=== PATIENT | male | born 1940 | race Caucasian/White ===

== ENCOUNTER 2020-04-04 22:36 | Emergency (ER) | payer OTHER ==
--- OUTSIDE RECORDS SUMMARY | 2020-04-04 22:39 | XMS REPORT ---
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 Problem Obstructive sleep apnea G47.33 Acti ve Problem Hypogonadism male E29.1 Active Problem Anxiety and depression F41.8 Activ e Problem Chronic obstructive pulmonary J44.9 Active disease Problem Benign hypertrophy of prostate N40.0 Active Problem Fibromyalgia M79.7 Active Problem Sciatica of right side M54.31 Activ e Problem Primary osteoarthritis of left knee M17.12 Active Problem Primary osteoarthritis of right M17.11 Active knee Problem Kidney stones N20.0 Active Problem Mixed hyperlipidemia E78.2 Active Problem Atrial fibrillation I48.91 Active Problem Fatigue R53.83 Active Problem Urinary incontinence R32 Active Problem Peripheral vascular disease I73.9 Active Problem Anemia, unspecified type D64.9 Act dana Problem Pain, joint, knee, right M25.561 Act dana Problem Primary osteoarthritis of both M17.0 Active knees Problem Mixed stress and urge urinary N39.46 Active incontinence Problem Benign essential HTN I10 Active Problem 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
--- OUTSIDE RECORDS SUMMARY | 2020-04-04 22:39 | XMS REPORT | Summary of Care ---
:1940 Author Organization [facility] Address [address] [place] [id number] Care Team Providers Name Role Phone Unavailable Primary Care Provider Unavailable Reason for Visit Reason Comments LAB Exposure Encounter Details Date Type Department Care Team Description 03/22/2020 Laboratory Only [facility] Geoff Dean, DANIELLE [address] [place] [id number] Suspected Covid-19 [facility] Fam Pob I Virus Infection [address] [place] [address] (Primary D x) [place] [address] Allergies Not on Filedocumented as of this encounter (statuses as of 03/22/2020) Medications Not on filedocumented as of this encounter (statuses as of 03/22/2020) Active Problems Not on filedocumented as of this encounter (statuses as of 03/22/2020) Social History Tobacco Use Types Packs/Day Years Used Date Never Assessed Sex Assigned at Date Recorded Not on file documented as of this encounter Last Filed Vital Signs Not on filedocumented in this encounter Nursing Notes Jessica Herrera - 03/22/2020 2:00 PM Roselia Mancuso Dino is a 79 year old male here for COVID Screening with a Nasopharyngeal Swab All droplet and contact precautions taken with appropriate PPE worn while interacting with patient. ? Goggles ? N95 Mask ? Gloves ? Gown RR 20 Pulse Ox 97% Patient educated on plan of care for visit, swabbing technique, risks and benefits of test and length of time to receive results. Verbal consent obtained to perform test. CDC Fact Sheet for Patients nCoV Diagnostic Panel dated 11/01/2019 and Factsheet What to Do if Sick with COVID 19 10/12/19 provided. Patient swabbed per appropriate nasopharyngeal technique, and patient tolerated well. Patient was discharged from the testing clinic in stable condition. JESSICA HERRERA 03/22/2020 2:16 PM documented in this encounter Plan of Treatment Name Type Priority Associated Diagnoses Order S chedule COVID-19 (PCR MOLECULAR LAB Routine Suspected Covid-1 9 Virus Expected: 03/22/2020, TESTING) Infection Expires: 2020 documented as of this encounter Results Not on filedocumented in this encounter Visit Diagnoses Diagnosis Suspected Covid-19 Virus Infection - Belle karla documented in this encounter Additional Health Concerns Infection Onset Date Last Indicated Resolved Time COVID-19 Rule Out 03/22/2020 03/22/2020 documented as of this encounter Insurance Payer Benefit Plan / Subscriber ID Effective Dates Phone Addre ss Type Group MEDICARE MEDICARE PART A [id number] 2007-[place] [phone] [facility] Medicare & B t 82 [id number] [place] [id number] [employer] A[employer] INDEMNITY [id number] 2013-[place] Khan t documented as of this encounter
--- OUTSIDE RECORDS SUMMARY | 2020-04-04 22:39 | XMS REPORT | Continuity of Care Document ---
:1940 Author Organization [facility] t Address [address] [place] [address] Care Team Providers Name Role Phone Lab, Fam Pob I Attending Clinician Unavailable Payers Payer Name Policy Type Policy Number Effective Date Expiration Date S ource Problems Condition Condition Condition Status Onset Resolution Last Treating Co mments Source Name Details Category Date Date Treatment Clinician Date Chronic Chronic Problem Active [facility] kidney kidney [facility] - disease, disease, Memori a stage III stage III l (moderate) (moderate) [facility]ics Ischemic Ischemic Problem Active [facility] cardiomyop cardiomyop Tonia kes - athy athy Memoria l [facility] Tinnitus Tinnitus Problem Active [facility] Adult BMI Adult BMI Problem Active [facility] 38.0-38.9 38.0-38.9 Luke s - kg/sq m kg/sq m Memoria l [facility] Low back Low back Problem Active [facility] pain pain [facility] - [facility] Renal Renal Problem Active [facility] disease disease [facility] - [facility] Disorders Disorders Problem Active [facility] of of [facility] - endocrine endocrine Zachary slime glands in glands in l diseases diseases Outpat i classified classified en t elsewhere elsewhere Clin ics Obstructiv Obstructiv Problem Active [facility] e sleep e sleep [facility] - apnea apnea [facility] l [facility] Hypogonadi Hypogonadi Problem Active [facility] sm male sm male [facility] - [facility] l [facility] Anxiety Anxiety Problem Active [facility] and and [facility] - depression depression Me moria l [facility] Chronic Chronic Problem Active [facility] obstructiv obstructiv Tonia kes - e e Memoria pulmonary pulmonary l disease disease [facility] Benign Benign Problem Active [facility] hypertroph hypertroph Tonia kes - y of y of [facility] prostate prostate l [facility] Fibromyalg Fibromyalg Problem Active [facility] ia ia [facility] - [facility] l [facility]ics Sciatica Sciatica Problem Active [facility] of right of right [facility] - side side [facility] l [facility]ics Primary Primary Problem Active [facility] osteoarthr osteoarthr Tonia kes - itis of itis of [facility] left knee left knee l [facility] Primary Primary Problem Active [facility] osteoarthr osteoarthr Tonia kes - itis of itis of [facility] right knee right knee l [facility] Kidney Kidney Diagnosis Active [facility] stones stones [facility] - [facility] l [facility] Mixed Mixed Problem Active [facility] hyperlipid hyperlipid Tonia kes - emia emia [facility] l [facility] Atrial Atrial Problem Active [facility] fibrillati fibrillati Tonia kes - on on [facility] Fatigue [facility] Urinary Urinary Diagnosis Active [facility] incontinen incontinen Tonia kes - ce ce [facility] Peripheral Peripheral Problem Active [facility] vascular vascular [facility] - disease disease [facility] l [facility] Anemia, Anemia, Problem Active [facility] unspecifie unspecifie Tonia kes - d type d type [facility] Pain, Pain, Problem Active [facility] joint, joint, [facility] - knee, knee, Memoria right right l [facility] Primary Primary Problem Active [facility] osteoarthr osteoarthr Tonia kes - itis of itis of [facility] both knees both knees l [facility]ics Mixed Mixed Problem Active [facility] stress and stress and [facility] urinary l incontinen incontinen Ou tpati ce ce ent Clinics Benign Benign Problem Active [facility] essential essential Luke s - HTN HTN [facility] l [facility] Ischemic Ischemic Problem Active [facility] heart heart [facility] - disease disease [facility] l [facility] Dizziness Dizziness Problem Active [facility] GERD GERD Problem Active [facility] (gastroeso (gastroeso Tonia kes - phageal phageal Memoria reflux reflux l disease) disease) Outpat i ent Clinics Vitamin D Vitamin D Problem Active [facility] deficiency deficiency Tonia kes - Memoria l [facility] Clinics Arterioscl Arterioscl Problem Active [facility] erosis of erosis of Luke s - coronary coronary Memori a artery artery l [facility]ics Neuropathy Neuropathy Problem Active [facility] , , [facility] - peripheral peripheral Me moria l [facility] Nocturia Nocturia Problem Active [facility] - [facility] Chronic Chronic Problem Active [facility] hepatitis hepatitis Luke s - C C Memoria l [facility] Allergies, Adverse Reactions, Alerts Allergy Allergy Status Severity Reaction(s) Onset Inactive Treating Comm ents Source Name Type Date Date Clinician No Known DA Active [facility] All[facility]ie 01-21 s 00:00: [address] Medications Ordered Filled Start Stop Current Ordering Indication Dosage Frequency Signature Comments Components Source Medication Medication Date Date Medication? Clinician (SIG) Name Name Alexandrapatriciadeidre Hodgeopan Yes Elaina 1/[address] 9-05 [place] [facility] - 00:00: Memoria 00 l [facility] Testosteron Testosteron Yes Elaina [address] [facility] e Cypionate e Cypionate 1-03 [place] [facility] - 00:00: Memoria 00 l [facility] Clinics Coreg Coreg Yes Elaina not [facility] [place] defined [facility] - Memoria l [facility]ics Isosorbide Isosorbide Yes Elaina [address] [facility] Mononitrate Mononitrate [place] in the [facility] - ER ER morning Memoria l [facility] Vitamin D3 Vitamin D3 Yes Elaina [address] [facility] [facility] [place] [facility] - Memoria l [facility] Potassium Potassium Yes Elaina [address] [facility] Chloride Chloride Skylar with food [facility]ukes - [place] ER [facility] ER Memoria l [facility] Gabapentin Gabapentin Yes Elaina [address] [facility] [place] [facility] - Memoria l [facility]ics Zocor Zocor Yes Elaina [address] [place] in the Lukes - evening Memoria l [facility] Lotrisone Lotrisone Yes Eliana APPLY [facility] Skylar TOPICALLY [facility] - TO AREA Memoria ONCE A DAY l AT BED [facility] TIME ent Clinics Amlodipine Amlodipine Yes Elaina [address] [address] Besylate Besylate [place] - [facility] l [facility] Wellbutrin Wellbutrin Yes Elaina [address] XL XL [place] in the [facility] - morning [facility] l [facility] Hydrochloro Hydrochloro Yes Elaina [address] thiazide thiazide [place] in the L ukes - morning [facility] l [facility] Vitamin Vitamin Yes Elaina not [facility] G27-[id number] Skylar defined [facility]ukes - Acid Acid [facility] l [facility] Zoloft Zoloft Yes Elaina [address] [facility] [facility] Skyl[facility] - [facility] l [facility] Clinics Pantoprazol Pantoprazol Yes Elaina [address] [facility] e Sodium e Sodium [place] [facility] l [facility] Clinics Nuvigil Nuvigil Yes Elaina [address] [facility] [facility] [place] in the [facility] - morning [facility] l [facility] Omeprazole Omeprazole Yes Elaina [address] [place] [facility] ent Clinics Procedures This patient has no known procedures. Encounters Start End Encounter Admission Attending Care Care Encounter Source Date/Time Date/Time Type Type Clinicians Facility Department ID 2020-03-22 2020-03-22 Laboratory Lab, [facility] [id number] 14:05:14 14:25:14 Only Fam Pob I [facility] [id number] [place] [id number] Professio [id number] nal [address] 2020-01-28 2020-01-28 Outpatient Celestine Chew [id number] 13:15:00 13:15:00 t Specialty/U Tonia kes - Specialty rology Memori a /Urology Clinic l Clinic [facility] 2020-01-25 2020-01-25 Outpatient Celestine Chew [id number] 13:46:00 13:46:00 t Specialty/U Tonia kes - Specialty rology Memori a /Urology Clinic l Clinic [facility] 2019-12-28 2019-12-28 Outpatient Celestine Chew [id number] 13:30:00 13:30:00 t Specialty/U Tonia kes - Specialty rology Memori a /Urology Clinic l Clinic [facility]ics Results Test Description Test Time Test Comments Results Result Comments Source ROMIE-AREN 2020-01-25 07:24:00 Test Item Value Reference Range Interpretation Comme nts CURTIS (test code = ACTI) 208 SEC 74-137 H BASIC METABOLIC [id number] 08:47:00 Test Item Value Reference Range Interpretation Comments SODIUM (test code = 137 MMOL/L 137-145 N NA) POTASSIUM (test code = 4.1 MMOL/L 3.5-5.1 N K) CHLORIDE (test code = 106 MMOL/L 98-107 N CL) CARBON DIOXIDE (test 28 MMOL/L 22-30 N code = CO2) ANION GAP (test code = 7 MMOL/L 14-24 L GAP) GLUCOSE (test code = 91 MG/DL 74-106 N GLU) BLOOD UREA NITROGEN 14 MG/DL 9-20 N (test code = BUN) GLOMERULAR FILTRATION > 60 Report ing units: RATE (test code = GFR) ml/mi n/1.73 m2 (Modified MDRD Formula)Referen ce Range: > or = 6 0 ml/min/1.73 m2 CREATININE (test code 1.00 MG/DL 0.66-1.25 N = CREAT) CALCIUM (test code = 8.7 MG/DL 8.4-10.2 N CA) CBC W/AUTO [id number] 08:17:00 Test Item Value Reference Range Interpretation Comments WHITE BLOOD CELL (test code = 9.5 K/MM3 3.8-9.8 N WBC) RED BLOOD CELL (test code = 3.73 M/MM3 3.95-5.67 L RBC) HEMOGLOBIN (test code = HGB) 10.7 G/DL 12.4-16.7 L HEMATOCRIT (test code = HCT) 33.9 % 35.9-49.5 L MEAN CELL VOLUME (test code = 91 fL 81.7-96.1 N MCV) MEAN CELL HGB (test code = MCH) 28.7 pg 27.6-33.2 N MEAN CELL HGB CONCETRATION 31.6 % 32.9-35.5 L (test code = MCHC) RED CELL DISTRIBUTION WIDTH 12.9 % 12.1-15.2 N (test code = RDW) PLATELET COUNT (test code = 205 K/MM3 129-368 N PLT) MEAN PLATELET VOLUME (test code 10.1 fl 7.4-10.4 N = MPV) NEUTROPHIL % (test code = NT%) 74.3 % 43-75 N IMMATURE GRANULOCYTE % (test 0.7 % 0.0-2.0 N code = IG%) LYMPHOCYTE % (test code = LY%) 11.7 % 14-44 L MONOCYTE % (test code = MO%) 8.9 % 4-13 N EOSINOPHIL % (test code = EO%) 4.1 % 0-6 N BASOPHIL % (test code = BA%) 0.3 % 0-2 N NUCLEATED RBC % (test code = 0.0 % 0-1.0 N NRBC%) NEUTROPHIL # (test code = NT#) 7.04 K/mm3 2.0-7.6 N IMMATURE GRANULOCYTE # (test 0.07 x10 3/uL 0-0.03 H code = IG#) LYMPHOCYTE # (test code = LY#) 1.11 K/mm3 1.0-3.8 N MONOCYTE # (test code = MO#) 0.84 K/mm3 0.1-0.8 H EOSINOPHIL # (test code = EO#) 0.39 K/mm3 0.0-0.2 H BASOPHIL # (test code = BA#) 0.03 K/mm3 0.0-0.2 N NUCLEATED RBC # (test code = 0.00 K/mm3 0.0-0.1 N NRBC#) BASIC METABOLIC [id number] 06:47:00 Test Item Value Reference Range Interpretation Comments SODIUM (test code = 140 MMOL/L 137-145 N NA) POTASSIUM (test code = 3.7 MMOL/L 3.5-5.1 N K) CHLORIDE (test code = 108 MMOL/L 98-107 H CL) CARBON DIOXIDE (test 27 MMOL/L 22-30 N code = CO2) GLUCOSE (test code = 102 MG/DL 74-106 N GLU) BLOOD UREA NITROGEN 22 MG/DL 9-20 H (test code = BUN) GLOMERULAR FILTRATION > 60 Report ing units: RATE (test code = GFR) ml/mi n/1.73 m2 (Modified MDRD Formula)Referen ce Range: > or = 6 0 ml/min/1.73 m2 CREATININE (test code 1.10 MG/DL 0.66-1.25 N = CREAT) CALCIUM (test code = 9.1 MG/DL 8.4-10.2 N CA) LIPID PROFILE (CORONARY RISK)2020-01-23 06:47:00 Test Item Value Reference Range Interpretation Comments TRIGLYCERIDES (test 104 MG/DL TRIGLYCE RIDES code = TRIG) REFERENCE RANGE:Normal: < 150 mg/dLBorderline High: 150-199 mg/dLHi gh: 200-499 mg/dLVe ry High: >=500 mg/ dL CHOLESTEROL (test code 129 MG/DL <200 = CHOL) HDL CHOLESTEROL (test 33 MG/DL 40-59 L code = HDL) LIPOPROTEIN LDL (test 75 MG/DL 0-99 N code = LDL) OPTIMAL........ .<100 mg/dLNEAR OPTIMAL/ABOVE OPTIMAL........ .100-12 9 mg/dL BORDERLINE HIGH.........13 0-159 mg/dL HIGH.........16 0-189 mg/dL VERY HIGH...... ...>/= 190 mg/dL [id number] 06:47:00 Test Item Value Reference Range Interpretation Comments MAGNESIUM (test code = MAG) 1.9 MG/DL 1.6-2.3 N PROTHROMBIN [id number] 06:44:00 Test Item Value Reference Range Interpretation Comments PROTHROMBIN TIME 14.9 SECONDS 9.4-12.5 H PATIENT (test code = PTP) INTERNATIONAL NORMAL 1.4 The INR is to be RATIO (test code = used only for INR) monitoring oral anticoagulantth erap y. INDICATION I NR VALUE ---- ---- ---- -------1. Prophylaxis, de ep venous thrombos is, including hig h risk surgery. 2.0 - 3.0 2. Prophylaxis, de ep venous thrombos is, hip surgery, treatment for d eep venous thrombosis or pulmonary prevention of systemic emboli sm in patients wit h valvular heart disease, atrial fibrillation, tissue heart va lve, or acute myocar dial infarction. 2.0 - 3 .0 3. Mechanical prosthesis hear t valves, recurrent syste payal embolism. 3.0 - 4.5 PTT [id number] 06:44:00 Test Item Value Reference Range Interpretation Comments PTT ACTIVATED (test code = APTT) 33.7 SECONDS 25.1-36.5 N BASIC METABOLIC [id number] 06:36:00 Test Item Value Reference Range Interpretation Comments SODIUM (test code = 140 MMOL/L 137-145 N NA) POTASSIUM (test code = 3.7 MMOL/L 3.5-5.1 N K) CHLORIDE (test code = 108 MMOL/L 98-107 H CL) CARBON DIOXIDE (test 27 MMOL/L 22-30 N code = CO2) GLUCOSE (test code = 102 MG/DL 74-106 N GLU) BLOOD UREA NITROGEN 22 MG/DL 9-20 H (test code = BUN) GLOMERULAR FILTRATION > 60 Report ing units: RATE (test code = GFR) ml/mi n/1.73 m2 (Modified MDRD Formula)Referen ce Range: > or = 6 0 ml/min/1.73 m2 CREATININE (test code 1.10 MG/DL 0.66-1.25 N = CREAT) CALCIUM (test code = 9.1 MG/DL 8.4-10.2 N CA) LIPID PROFILE (CORONARY RISK)2020-01-23 06:36:00 Test Item Value Reference Range Interpretation Comments TRIGLYCERIDES (test 104 MG/DL TRIGLYCE RIDES code = TRIG) REFERENCE RANGE:Normal: < 150 mg/dLBorderline High: 150-199 mg/dLHi gh: 200-499 mg/dLVe ry High: >=500 mg/ dL CHOLESTEROL (test code 129 MG/DL <200 = CHOL) HDL CHOLESTEROL (test 33 MG/DL 40-59 L code = HDL) LIPOPROTEIN LDL (test MG/DL 0-99 code = LDL) [id number] 06:36:00 Test Item Value Reference Range Interpretation Comments MAGNESIUM (test code = MAG) 1.9 MG/DL 1.6-2.3 N BASIC METABOLIC [id number] 06:35:00 Test Item Value Reference Range Interpretation Comments SODIUM (test code = 140 MMOL/L 137-145 N NA) POTASSIUM (test code = 3.7 MMOL/L 3.5-5.1 N K) CHLORIDE (test code = 108 MMOL/L 98-107 H CL) CARBON DIOXIDE (test 27 MMOL/L 22-30 N code = CO2) GLUCOSE (test code = 102 MG/DL 74-106 N GLU) BLOOD UREA NITROGEN 22 MG/DL 9-20 H (test code = BUN) GLOMERULAR FILTRATION > 60 Report ing units: RATE (test code = GFR) ml/mi n/1.73 m2 (Modified MDRD Formula)Referen ce Range: > or = 6 0 ml/min/1.73 m2 CREATININE (test code 1.10 MG/DL 0.66-1.25 N = CREAT) CALCIUM (test code = 9.1 MG/DL 8.4-10.2 N CA) LIPID PROFILE (CORONARY RISK)2020-01-23 06:35:00 Test Item Value Reference Range Interpretation Comments TRIGLYCERIDES (test 104 MG/DL TRIGLYCE RIDES code = TRIG) REFERENCE RANGE:Normal: < 150 mg/dLBorderline High: 150-199 mg/dLHi gh: 200-499 mg/dLVe ry High: >=500 mg/ dL CHOLESTEROL (test code 129 MG/DL <200 = CHOL) HDL CHOLESTEROL (test MG/DL 40-59 code = HDL) LIPOPROTEIN LDL (test MG/DL 0-99 code = LDL) [id number] 06:35:00 Test Item Value Reference Range Interpretation Comments MAGNESIUM (test code = MAG) 1.9 MG/DL 1.6-2.3 N BASIC METABOLIC [id number] 06:34:00 Test Item Value Reference Range Interpretation Comments SODIUM (test code = 140 MMOL/L 137-145 N NA) POTASSIUM (test code = 3.7 MMOL/L 3.5-5.1 N K) CHLORIDE (test code = 108 MMOL/L 98-107 H CL) CARBON DIOXIDE (test MMOL/L 22-30 code = CO2) GLUCOSE (test code = MG/DL 74-106 GLU) BLOOD UREA NITROGEN MG/DL 9-20 (test code = BUN) GLOMERULAR FILTRATION > 60 Report ing units: RATE (test code = GFR) ml/mi n/1.73 m2 (Modified MDRD Formula)Referen ce Range: > or = 6 0 ml/min/1.73 m2 CREATININE (test code 1.10 MG/DL 0.66-1.25 N = CREAT) CALCIUM (test code = MG/DL 8.7-9.7 CA) LIPID PROFILE (CORONARY RISK)2020-01-23 06:34:00 Test Item Value Reference Range Interpretation Comments TRIGLYCERIDES (test code = TRIG) MG/DL CHOLESTEROL (test code = CHOL) 129 MG/DL <200 HDL CHOLESTEROL (test code = HDL) MG/DL 40-59 LIPOPROTEIN LDL (test code = LDL) MG/DL 0-99 [id number] 06:34:00 Test Item Value Reference Range Interpretation Comments MAGNESIUM (test code = MAG) MG/DL 1.6-2.3 BASIC METABOLIC [id number] 06:32:00 Test Item Value Reference Range Interpretation Comments SODIUM (test code = NA) 140 MMOL/L 137-145 N POTASSIUM (test code = K) 3.7 MMOL/L 3.5-5.1 N CHLORIDE (test code = CL) 108 MMOL/L 98-107 H CARBON DIOXIDE (test code = CO2) MMOL/L 22-30 GLUCOSE (test code = GLU) MG/DL 74-106 BLOOD UREA NITROGEN (test code = MG/DL 9-20 BUN) GLOMERULAR FILTRATION RATE (test code = GFR) CREATININE (test code = CREAT) MG/DL 0.66-1.25 CALCIUM (test code = CA) MG/DL 8.7-9.7 LIPID PROFILE (CORONARY RISK)2020-01-23 06:32:00 Test Item Value Reference Range Interpretation Comments TRIGLYCERIDES (test code = TRIG) MG/DL CHOLESTEROL (test code = CHOL) MG/DL <200 HDL CHOLESTEROL (test code = HDL) MG/DL 40-59 LIPOPROTEIN LDL (test code = LDL) MG/DL 0-99 [id number] 06:32:00 Test Item Value Reference Range Interpretation Comments MAGNESIUM (test code = MAG) MG/DL 1.6-2.3 CBC W/AUTO [id number] 06:20:00 Test Item Value Reference Range Interpretation Comments WHITE BLOOD CELL (test code = 8.1 K/MM3 3.8-9.8 N WBC) RED BLOOD CELL (test code = 3.84 M/MM3 3.95-5.67 L RBC) HEMOGLOBIN (test code = HGB) 11.2 G/DL 12.4-16.7 L HEMATOCRIT (test code = HCT) 34.7 % 35.9-49.5 L MEAN CELL VOLUME (test code = 90 fL 81.7-96.1 N MCV) MEAN CELL HGB (test code = MCH) 29.2 pg 27.6-33.2 N MEAN CELL HGB CONCETRATION 32.3 % 32.9-35.5 L (test code = MCHC) RED CELL DISTRIBUTION WIDTH 12.9 % 12.1-15.2 N (test code = RDW) PLATELET COUNT (test code = 217 K/MM3 129-368 N PLT) MEAN PLATELET VOLUME (test code 10.0 fl 7.4-10.4 N = MPV) NEUTROPHIL % (test code = NT%) 66.4 % 43-75 N IMMATURE GRANULOCYTE % (test 0.5 % 0.0-2.0 N code = IG%) LYMPHOCYTE % (test code = LY%) 17.2 % 14-44 N MONOCYTE % (test code = MO%) 10.1 % 4-13 N EOSINOPHIL % (test code = EO%) 5.3 % 0-6 N BASOPHIL % (test code = BA%) 0.5 % 0-2 N NUCLEATED RBC % (test code = 0.0 % 0-1.0 N NRBC%) NEUTROPHIL # (test code = NT#) 5.41 K/mm3 2.0-7.6 N IMMATURE GRANULOCYTE # (test 0.04 x10 3/uL 0-0.03 H code = IG#) LYMPHOCYTE # (test code = LY#) 1.40 K/mm3 1.0-3.8 N MONOCYTE # (test code = MO#) 0.82 K/mm3 0.1-0.8 H EOSINOPHIL # (test code = EO#) 0.43 K/mm3 0.0-0.2 H BASOPHIL # (test code = BA#) 0.04 K/mm3 0.0-0.2 N NUCLEATED RBC # (test code = 0.00 K/mm3 0.0-0.1 N NRBC#) Coronavirus 2018 nCoV [id number] 18:32:00 Test Item Value Reference Range Interpretation Comments Coronavirus 2018 nCoV Negative NEGATIVE Per hi nufacturer, Bedside (test code = negativ e results should COVNONPUIBED) be treated aspresumptive a nd, if inconsistent wi th clinical signs andsymptoms or necessary for p atient management, libra uld betested with a n alternative mol ecular assay. Negative resultsdo not p reclude SARS-CoV-2 infe ction and should not be usedas the sole basis for patient man agement decisions. Neg ative results should be considered in t he context of apat ient's recent exposure s, history, prese nce of clinicalsigns a nd symptoms consis tent with COVID-19.
--- OUTSIDE RECORDS SUMMARY | 2020-04-04 22:39 | XMS REPORT ---
:1940 Author Organization [employer] Care Team Providers Name Role Phone Skylar Elaina Provider Role Unavailable Allergies, Adverse Reactions, Alerts Substance Reaction Event Type N.K.D.A. Info Not Available Non Drug Allergy Problems Problem Type Condition Code Onset Dates [...] I25.9 Activ e Problem Dizziness R42 Active Assessment Kidney stones N20.0 Active Problem GERD (gastroesophageal reflux K21.9 Active disease) Assessment Urinary incontinence R32 Active Problem Vitamin D deficiency E55.9 Active Problem Arteriosclerosis of coronary artery I25.10 Active Problem Neuropathy, peripheral G62.9 Activ e Problem Nocturia R35.1 Active Problem Chronic hepatitis C B18.2 Active Medications Medication Code Code Instructions Start End Status Dosage System Date Date Zoloft [facility] 96360871336 50 MG Orally Active 1 table t Once a day Isosorbide [facility] 94289679991 30 MG Orally Active 1 ta blet Mononitrate ER Once a day in the morning Vitamin D3 [facility] 77997764464 1000 UNIT Active 1 capsu le Orally Once a day Vitamin F86-Crvtb [facility] 10172531003 500-400 MCG Active not Acid Orally defined Ditropan [facility] 24267526187 5mg orally Sept Active 1/2 tabl et twice a day 2018 Nuvigil [facility] 63971189638 150 MG Orally Active 1 tabl et Once a day in the morning Testosterone [facility] 22382494394 100 MG/ML Aba Active 1 ml Cypionate Intramuscular 2018 Zocor [facility] 66434141525 20 MG Orally Active 1 table t Once a day in the evening Amlodipine Besylate [facility] 76184620652 10 MG Orally Act dana 1 tablet Once a day Wellbutrin XL [facility] 07329596300 150 MG Orally Active 1 tablet Once a day in the morning Hydrochlorothiazide [facility] 11764932319 12.5 MG Orally A ctive 1 tablet Once a day in the morning Gabapentin [facility] 21545597776 400 MG Orally Active 1 c apsule Twice a day Potassium Chloride [facility] [address]-33 15 MEQ Orally A ctive 1 tablet [place] Twice a day with food Coreg [facility] 54408282710 25 MG Orally Active not defined Pantoprazole Sodium [facility] 56454692942 40 MG Orally Act dana 1 tablet Once a day Lotrisone [facility] 29529236275 1-0.05 % Active APPLY TOPICALLY TO AREA ONCE A DAY AT BED TIME Omeprazole [facility] 15986036094 40 MG Orally Active 1 ca psule Once a day Results No Known Results Summary Purpose [employer] Submission
[2020-04-04] MEDS ORDERED: NA CHLORIDE 0.9% 1,000 ML ONE ×2 (23:06→23:09)
[2020-04-04] MEDS ORDERED: FOLIC ACID 5 MG/ML VIAL ONE ×2 (23:06→23:09)
[2020-04-04] MEDS ORDERED: ALTEPLASE 100 ML IV ONE (23:14)
[2020-04-04 23:18] LABS: Absolute Lymphocytes (CBC) 1.4 K/uL (0.7-4.9); Basophils % 0.7 % (0-1.3); Hematocrit 34.3 % (39.6-49.0); Lymphocytes % 16.9 % (15.3-44.8); MPV 8.2 fL (7.6-11.3); RBC Red Blood Cell Count 3.96 M/uL (4.33-5.43)
[2020-04-04 23:21] LABS: Protime INR 1.32
[2020-04-04] MEDS ORDERED: FAMOTIDINE 20 MG/2 ML VIAL IV ONE (23:22)
[2020-04-04 23:30] LABS: BUN Blood Urea Nitrogen 28 mg/dL (7-18); Bicarbonate 28 mmol/L (21-32); Glucose Level 101 mg/dL (74-106); Magnesium 2.3 mg/dL (1.8-2.4); Potassium 3.6 mmol/L (3.5-5.1); Sodium Level 145 mmol/L (136-145); Troponin (Emerg Dept Use Only) < 0.02 ng/mL (0.0-0.045)
[2020-04-04 23:38] LABS: C-Reactive Protein < 2.90 mg/L (<3.00)
--- NOTE | 2020-04-04 23:44 | RAD REPORT ---
EXAM DESCRIPTION: RAD - Chest Single View - 04/04/2020 11:28 pm CLINICAL HISTORY: COUGH Chest pain. COMPARISON: Abdomen 1 View (KUB) dated 02/03/2020; Abdomen 1 View (KUB) dated 06/20/2018; Abdomen 1 Vi ew (KUB) dated 06/13/2017; Chest Pa And Lat (2 Views) dated 03/06/2017 FINDINGS: Portable technique limits examination quality. The lungs are grossly clear. The heart is normal in size. Thoracic aorta is tortuous. IMPRESSION: No acute intrathoracic process suspected.
--- NOTE | 2020-04-05 00:11 | EDPHYS ---
Physician Documentation [facility] Name: Jp Sun Age: 79 yrs Sex: Male : 1940 Arrival Date: 04/04/2020 Time: 22:38 Bed 5 Private MD: ED Physician Israel Frias HPI: 04/04 23:54 This 79 yrs old Male presents to ER via EMS with complaints of S/S of shannon Possible Stroke. 23:54 The patient's problem is reported as a facial droop, dysphasia, slurred speech, shannon expressive aphasia, difficulty swallowing. Onset: The symptoms/episode began/occurred 830 yessy per the family, dw and daughter, 830pm yessy . Duration: The episode is continuous. Context: the episode(s) was witnessed, by family, daughter, , symptoms became apparent at 20:30. occurred at home. The symptoms are alleviated by nothing. The symptoms are aggravated by nothing. Associated signs and symptoms: The patient has no apparent associated signs or symptoms. Severity of symptoms: At their worst the symptoms were mild in the emergency department the symptoms are unchanged. Patient's baseline: Neuro: alert and fully oriented, Motor: no deficits, Ambulation: walks without assistance, Speech: normal, normal for age, The patient has a previous history of CVA. yes but no work up 2 months ago, slurred speech and difficulty swallowing. Historical: - Allergies: 22:45 No Known Allergies; rv - Home Meds: 22:45 amlodipine 10 mg tab 1 tab once daily [Active]; pravastatin 40 mg oral tab 1 tab once rv daily [Active]; gabapentin 400 mg oral cap 1 cap daily [Active]; carvedilol 25 mg oral tab 1 tab daily [Active]; 23:15 losartan 50 mg oral tab 1 tab once daily [Active]; bupropion HCl 300 mg Oral Tb24 1 tab rv once daily [Active]; sertraline 100 mg oral tab 1 tab once daily [Active]; sertraline 25 mg oral tab 1 tab once daily [Active]; sulfamethoxazole-trimethoprim Oral 2 times per day [Active]; pantoprazole 40 mg oral TbEC 1 tab once daily [Active]; Myrbetriq 50 mg oral Tb24 1 tab once daily [Active]; aspirin 325 mg Oral TbEC 1 tab once daily [Active]; - PMHx: 22:45 Hypertension; TIA; rv - PSHx: 22:45 None; rv - Immunization history:: Adult Immunizations up to date. - Social history:: Smoking status: Patient denies any tobacco usage or history of. - Family history:: not pertinent. ROS: 23:54 Constitutional: Negative for fever, chills, and weight loss, Eyes: Negative for injury, shannon pain, redness, and discharge, ENT: Negative for injury, pain, and discharge, Neck: Negative for injury, pain, and swelling, Cardiovascular: Negative for chest pain, palpitations, and edema, Respiratory: Negative for shortness of breath, cough, wheezing, and pleuritic chest pain, Abdomen/GI: Negative for abdominal pain, nausea, vomiting, diarrhea, and constipation, Back: Negative for injury and pain, : Negative for injury, bleeding, discharge, and swelling, MS/Extremity: Negative for injury and deformity, Skin: Negative for injury, rash, and discoloration, Psych: Negative for depression, anxiety, suicide ideation, homicidal ideation, and hallucinations, Allergy/Immunology: Negative for hives, rash, and allergies, Endocrine: Negative for neck swelling, polydipsia, polyuria, polyphagia, and marked weight changes, Hematologic/Lymphatic: Negative for swollen nodes, abnormal bleeding, and unusual bruising. 23:54 Neuro: Positive for dizziness, speech changes, difficulty swallowing. Exam: 23:54 Radiologist reports: neg for acute, no blood shannon 23:54 Constitutional: This is a well developed, well nourished patient who is awake, alert, and in no acute distress. Head/Face: Normocephalic, atraumatic. Eyes: Pupils equal round and reactive to light, extra-ocular motions intact. Lids and lashes normal. Conjunctiva and sclera are non-icteric and not injected. Cornea within normal limits. Periorbital areas with no swelling, redness, or edema. ENT: Nares patent. No nasal discharge, no septal abnormalities noted. Tympanic membranes are normal and external auditory canals are clear. Oropharynx with no redness, swelling, or masses, exudates, or evidence of obstruction, uvula midline. Mucous membranes moist. Neck: Trachea midline, no thyromegaly or masses palpated, and no cervical lymphadenopathy. Supple, full range of motion without nuchal rigidity, or vertebral point tenderness. No Meningismus. Chest/axilla: Normal chest wall appearance and motion. Nontender with no deformity. No lesions are appreciated. Cardiovascular: Regular rate and rhythm with a normal S1 and S2. No gallops, murmurs, or rubs. Normal PMI, no JVD. No pulse deficits. Respiratory: Lungs have equal breath sounds bilaterally, clear to auscultation and percussion. No rales, rhonchi or wheezes noted. No increased work of breathing, no retractions or nasal flaring. Abdomen/GI: Soft, non-tender, with normal bowel sounds. No distension or tympany. No guarding or rebound. No evidence of tenderness throughout. Back: No spinal tenderness. No costovertebral tenderness. Full range of motion. Male : Normal genitalia with no discharge or lesions. Skin: Warm, dry with normal turgor. Normal color with no rashes, no lesions, and no evidence of cellulitis. MS/ Extremity: Pulses equal, no cyanosis. Neurovascular intact. Full, normal range of motion. Psych: Awake, alert, with orientation to person, place and time. Behavior, mood, and affect are within normal limits. 23:54 Neuro: Orientation: is normal, appropriate for stated age, no acute changes, Mentation: is normal, appropriate for stated age, no acute changes, Memory: is normal, immediate memory is intact, recent memory is intact, remote memory is intact, appropriate for stated age, no acute changes, Cranial nerves: extraocular movements are intact, facial droop noted on left, with forehead involved. Cerebellar function: is grossly normal based on the patient's age, no acute changes, Motor: is normal, is grossly normal based on the patient's age, no acute changes, moves all fours, strength is 5/5 in all extremities, Sensation: is normal, no obvious gross deficits, appropriate no acute changes, Gait: not tested. Deep tendon reflexes are 2+ (normal) in the bilateral brachioradialis, bicep, tricep and patellar and Achilles tendons, Babinski testing is normal, seizure activity, is not displayed by the patient. Vital Signs: 22:41 BP 126 / 76; Pulse 66; Resp 16; Temp 98; Pulse Ox 98% ; Weight 108.86 kg; Height 6 ft. rv 0 in. (182.88 cm); Pain 0/10; 23:22 Weight 103.96 kg (M); rv 04/05 00:00 BP 136 / 108; Pulse 66; Resp 16; Pulse Ox 100% on R/A; rv 00:30 BP 146 / 86; Pulse 64; Resp 17; Pulse Ox 99% on R/A; rv 01:00 BP 138 / 90; Pulse 64; Resp 15; Temp 98; Pulse Ox 99% on R/A; rv 01:14 Pain 5/10; rv 04/04 23:22 Body Mass Index 31.08 (103.96 kg, 182.88 cm) rv NIH Stroke Scale Scores: 04/04 23:25 NIHSS Score: 2 rv 23:54 NIHSS Score: 3 shannon 04/05 00:41 NIHSS Score: 2 rv :22 NIHSS Score: 2 rv MDM: 04/04 22:49 Patient medically screened. [facility] 04/05 00:02 Differential diagnosis: CVA, TIA, Dementia, metabolic disorder. Data reviewed: vital shannon signs, nurses notes, lab test result(s), EKG, radiologic studies, CT scan, plain films. Data interpreted: desk monitor: rate is 66 beats/min, rhythm is regular, Pulse oximetry: on room air is 98 %. Test interpretation: by ED physician or midlevel provider: ECG, plain radiologic studies. Counseling: I had a detailed discussion with the patient and/or guardian regarding: the historical points, exam findings, and any diagnostic results supporting the discharge/admit diagnosis, lab results, radiology results, the need for outpatient follow up, the need to transfer to another facility, for higher level of care, [facility] does not immediately have the required specialist. Special discussion: dw , patient and daughter about tpa possibility, all agreed to give if no contraindications, dr Pan also said ok and do give. ED course: pt arrived within 3 hr window, confirmed with daughter and , 830pm yessy, no earlier, told tp go immediately to ct and bring back to the room, when labs completed then will send for ct head angio, instead they(radiology) did both at the same time delaying ct head without report and giving contrast to cret 1.89. mucomyst given. 04/04 22:52 Order name: Troponin (emerg Dept Use Only); Complete Time: 23:42 [facility] 04/04 22:52 Order name: Magnesium; Complete Time: 23:42 [facility] 04/04 22:52 Order name: Basic Metabolic Panel; Complete Time: 23:42 [facility] 04/04 22:52 Order name: CBC with Diff; Complete Time: 23:42 [facility] 04/04 22:52 Order name: Protime (+inr); Complete Time: 23:42 [facility] 04/04 22:52 Order name: Ptt, Activated; Complete Time: 23:42 [facility] 04/04 22:52 Order name: CT Stroke Brain w/o Contrast [facility] 04/04 22:52 Order name: Stroke CXR 1 View [facility] 04/04 22:52 Order name: CT Head Angio [facility] 04/04 22:52 Order name: CRP; Complete Time: 23:42 [facility] 04/04 22:52 Order name: Sed Rate; Complete Time: 23:42 [facility] 04/04 23:12 Order name: Glucose, Ancillary Testing; Complete Time: 23:29 EDMS 04/05 00:14 Order name: CT Abd/Pelvis - Without Contrast ar5 04/04 22:52 Order name: EKG; Complete Time: 22:52 [facility] 04/04 22:52 Order name: Accucheck; Complete Time: 23:01 [facility] 04/04 22:52 Order name: Cardiac monitoring; Complete Time: 23:01 [facility] 04/04 22:52 Order name: EKG - Nurse/Tech; Complete Time: 23:04 [facility] 04/04 22:52 Order name: IV Saline Lock; Complete Time: 23:04 [facility] 04/04 22:52 Order name: Labs collected and sent; Complete Time: 23:04 [facility] 04/04 22:52 Order name: NPO; Complete Time: 23:01 [facility] 04/04 22:52 Order name: O2 Per Protocol; Complete Time: 23:01 [facility] 04/04 22:52 Order name: O2 Sat Monitoring; Complete Time: 23:01 [facility] 04/04 22:52 Order name: Stroke Swallow Screen; Complete Time: 00:37 [facility] Administered Medications: 04/04 00:30 Drug: morphine 2 mg Route: IVP; Site: right antecubital; rv 04/05 01:14 Follow up: Pain 5/10 Adult; Response: No adverse reaction; Marked relief of symptoms; rv Pain is decreased; RASS: Alert and Calm (0) 04/04 23:30 Drug: NS 0.9% 1000 ml Route: IV; Rate: 1 bolus; Site: right antecubital; rv 04/05 01:16 Follow up: IV Status: Completed infusion; IV Intake: 1000ml rv 04/04 23:30 Drug: foLIC Acid 1 mg Route: IVPB; Site: right antecubital; rv 04/05 01:16 Follow up: IV Status: Completed infusion rv 04/04 23:30 Drug: Pepcid 20 mg Route: IVP; Site: right antecubital; rv 04/05 01:15 Follow up: Response: No adverse reaction rv 04/04 23:33 Drug: ACTIvase {Co-Signature: claudio (Cindy Fraire RN).} Route: IV Thrombolytics; Rate: rv calculated rate; Infused Over: 60 mins; 04/05 01:15 Follow up: Response: No adverse reaction rv 01:15 Follow up: Response: Other; completed infusion rv 01:15 Drug: morphine 2 mg Route: IVP; Site: right antecubital; rv 01:15 Follow up: Response: Medication administered at discharge. rv Disposition: 04/05/20 00:11 Transfer ordered to [facility]. Diagnosis are Cerebral infarction, Aphasia following cerebral infarction, Dysphagia, Acute kidney failure - on chronic. - Reason for transfer: Higher level of care. - Accepting physician is dr molina, [facility], [facility], [facility]. - Condition is Serious. - Problem is new. - Symptoms have improved. Critical care time excluding procedures: 00:35 Critical care time: Bedside Care: 25 minutes, Consultation: 10 minutes, Family shannon Intervention: 15 minutes. Total time: 50 minutes NIH Stroke Scale - NIH Stroke Score Date: 04/04/2020 Time: 23:25 Total Score = 2 1a. Level of Consciousness (LOC) - 0(Alert) 1b. Level of Consciousness (LOC) (Year \T\ Age) - 0(Both) 1c. LOC Commands (Open \T\ Closes Eyes/Alteration Hand) - 0(Both) 2. Best Gaze (Lateral Gaze Paresis) - 0(Normal) 3. Visual Field Loss - 0(No visual loss) 4. Facial Palsy - 1(Minor Paralysis) 5a. Left Arm: Motor (10-second hold) - 0(No drift) 5b. Right Arm: Motor (10-second hold) - 0(No drift) 6a. Left Leg: Motor (5-second hold - always test supine) - 0(No drift) 6b. Right Leg: Motor (5-second hold - always test supine) - 0(No drift) 7. Limb Ataxia (finger/nose \T\ heel/barragan - test with eyes open) - 0(Absent) 8. Sensory Loss (pinprick arms/legs/face) - 0(Normal) 9. Best Language: Aphasia (description/naming/reading) - 0(No aphasia) 10. Dysarthria (speech clarity - read or repeat words) - 1(Mild to Moderate) 11. Extinction and Inattention (visual/tactile/auditory/spatial/personal) - 0(No abnormality) Initials: NIH Stroke Scale - NIH Stroke Score Date: 04/04/2020 Time: 23:54 Total Score = 3 1a. Level of Consciousness (LOC) - 0(Alert) 1b. Level of Consciousness (LOC) (Year \T\ Age) - 0(Both) 1c. LOC Commands (Open \T\ Closes Eyes/Alteration Hand) - 0(Both) 2. Best Gaze (Lateral Gaze Paresis) - 0(Normal) 3. Visual Field Loss - 0(No visual loss) 4. Facial Palsy - 1(Minor Paralysis) 5a. Left Arm: Motor (10-second hold) - 0(No drift) 5b. Right Arm: Motor (10-second hold) - 0(No drift) 6a. Left Leg: Motor (5-second hold - always test supine) - 0(No drift) 6b. Right Leg: Motor (5-second hold - always test supine) - 0(No drift) 7. Limb Ataxia (finger/nose \T\ heel/barragan - test with eyes open) - 0(Absent) 8. Sensory Loss (pinprick arms/legs/face) - 0(Normal) 9. Best Language: Aphasia (description/naming/reading) - 1(Mild to moderate aphasia) 10. Dysarthria (speech clarity - read or repeat words) - 1(Mild to Moderate) 11. Extinction and Inattention (visual/tactile/auditory/spatial/personal) - 0(No abnormality) Initials: [facility] NIH Stroke Scale - NIH Stroke Score Date: 04/05/2020 Time: 00:41 Total Score = 2 1a. Level of Consciousness (LOC) - 0(Alert) 1b. Level of Consciousness (LOC) (Year \T\ Age) - 0(Both) 1c. LOC Commands (Open \T\ Closes Eyes/Alteration Hand) - 0(Both) 2. Best Gaze (Lateral Gaze Paresis) - 0(Normal) 3. Visual Field Loss - 0(No visual loss) 4. Facial Palsy - 1(Minor Paralysis) 5a. Left Arm: Motor (10-second hold) - 0(No drift) 5b. Right Arm: Motor (10-second hold) - 0(No drift) 6a. Left Leg: Motor (5-second hold - always test supine) - 0(No drift) 6b. Right Leg: Motor (5-second hold - always test supine) - 0(No drift) 7. Limb Ataxia (finger/nose \T\ heel/barragan - test with eyes open) - 0(Absent) 8. Sensory Loss (pinprick arms/legs/face) - 0(Normal) 9. Best Language: Aphasia (description/naming/reading) - 0(No aphasia) 10. Dysarthria (speech clarity - read or repeat words) - 1(Mild to Moderate) 11. Extinction and Inattention (visual/tactile/auditory/spatial/personal) - 0(No abnormality) Initials: NIH Stroke Scale - NIH Stroke Score Date: 04/05/2020 Time: : Total Score = 2 1a. Level of Consciousness (LOC) - 0(Alert) 1b. Level of Consciousness (LOC) (Year \T\ Age) - 0(Both) 1c. LOC Commands (Open \T\ Closes Eyes/Alteration Hand) - 0(Both) 2. Best Gaze (Lateral Gaze Paresis) - 0(Normal) 3. Visual Field Loss - 0(No visual loss) 4. Facial Palsy - 1(Minor Paralysis) 5a. Left Arm: Motor (10-second hold) - 0(No drift) 5b. Right Arm: Motor (10-second hold) - 0(No drift) 6a. Left Leg: Motor (5-second hold - always test supine) - 0(No drift) 6b. Right Leg: Motor (5-second hold - always test supine) - 0(No drift) 7. Limb Ataxia (finger/nose \T\ heel/barragan - test with eyes open) - 0(Absent) 8. Sensory Loss (pinprick arms/legs/face) - 0(Normal) 9. Best Language: Aphasia (description/naming/reading) - 0(No aphasia) 10. Dysarthria (speech clarity - read or repeat words) - 1(Mild to Moderate) 11. Extinction and Inattention (visual/tactile/auditory/spatial/personal) - 0(No abnormality) Initials: Signatures: Dispatcher [employer] EDJames Evans, RN RN sg Israel Frias MD MD cha Vicente, Ronaldo, RN RN rv Cindy Fraire RN, ea Corrections: (The following items were deleted from the chart) :23 00:11 04/05/2020 00:11 Transfer ordered to [facility]. Diagnosis is Cerebral infarction; Aphasia following cerebral infarction; Dysphagia; Acute kidney failure - on chronic. Reason for transfer: Higher level of care. Accepting physician is dr molina, [facility], [facility], [facility]. Condition is Serious. Problem is new. Symptoms have improved. shannon
--- NOTE | 2020-04-05 00:11 | ER ---
Nurse's Notes [facility] Name: Jp Sun Age: 79 yrs Sex: Male : 1940 Arrival Date: 04/04/2020 Time: 22:38 Bed 5 Private MD: Diagnosis: Cerebral infarction;Aphasia following cerebral infarction;Dysphagia;Acute kidney failure-on chronic Presentation: 04/04 22:41 Chief complaint: Patient states: FACIAL DROOP STARTED AT 7PM. COMPLAINS OF GENERALIZED rv WEAKNESS. EMS states: FACIAL DROOP LEFT SIDE ACTIVITIES THERAPIST. VITALS ARE STABLE. SYMPTOMS RESOLVED ACTIVITIES THERAPIST. Coronavirus screen: Client denies travel out of the [place] in the last 14 days. Ebola Screen: No symptoms or risks identified at this time. Initial Sepsis Screen: Does the patient meet any 2 criteria? No. Patient's initial sepsis screen is negative. Does the patient have a suspected source of infection? No. Patient's initial sepsis screen is negative. Risk Assessment: Do you want to hurt yourself or someone else? Patient reports no desire to harm self or others. Onset of symptoms was April 04, 2020 at 20:30. 22:41 Method Of Arrival: EMS: [facility] rv 22:41 Acuity: FRANCISCO 2 rv 23:17 No acute neurological deficit is noted. The patients blood glucose was checked before rv arriving to the hospital and was found to be normal. Triage Assessment: 23:00 General: Behavior is calm, cooperative. rv 23:00 The onset of the patients symptoms was April 04, 2020 at 20:30. Pain: Denies pain. rv EENT: No signs and/or symptoms were reported regarding the EENT system. Neuro: Level of Consciousness is awake, alert, obeys commands, Oriented to person, place, time, situation, Speech is slurred, Facial droop on left, Reports FACIAL DROOP, LEFT. Cardiovascular: Rhythm is sinus rhythm. Respiratory: Airway is patent Respiratory effort is even, unlabored. Derm: Skin is intact. 23:22 General: Appears. rv Stroke Activation: Symptom onset < 3 hours Physician: Stroke Attending; Name: dr caal; Notified At: 23:03; Arrived At: Physician: Chief Stroke Resident; Name: ; Notified At: 23:03; Arrived At: Physician: Stroke Resident; Name: ; Notified At: 23:03; Arrived At: Physician: ED Attending; Name: ; Notified At: 23:03; Arrived At: Physician: ED Resident; Name: ; Notified At: 23:03; Arrived At: Historical: - Allergies: 22:45 No Known Allergies; rv - Home Meds: 22:45 amlodipine 10 mg tab 1 tab once daily [Active]; pravastatin 40 mg oral tab 1 tab once rv daily [Active]; gabapentin 400 mg oral cap 1 cap daily [Active]; carvedilol 25 mg oral tab 1 tab daily [Active]; 23:15 losartan 50 mg oral tab 1 tab once daily [Active]; bupropion HCl 300 mg Oral Tb24 1 tab rv once daily [Active]; sertraline 100 mg oral tab 1 tab once daily [Active]; sertraline 25 mg oral tab 1 tab once daily [Active]; sulfamethoxazole-trimethoprim Oral 2 times per day [Active]; pantoprazole 40 mg oral TbEC 1 tab once daily [Active]; Myrbetriq 50 mg oral Tb24 1 tab once daily [Active]; aspirin 325 mg Oral TbEC 1 tab once daily [Active]; - PMHx: 22:45 Hypertension; TIA; rv - PSHx: 22:45 None; rv - Immunization history:: Adult Immunizations up to date. - Social history:: Smoking status: Patient denies any tobacco usage or history of. - Family history:: not pertinent. Screenin:00 VAN Screening: Arm Drift: Patient shows no arm weakness. Patient is VAN negative. rv 23:15 Abuse screen: Denies threats or abuse. Denies injuries from another. Nutritional rv screening: No deficits noted. Tuberculosis screening: No symptoms or risk factors identified. Fall Risk None identified. 23:21 The patient has not been NPO before screening. The patient does not exhibit slurred or rv garbled speech The patient is not exhibiting difficulty speaking. The patient does not exhibit difficulty understanding words. The patient is able to swallow own secretions with no drooling or need for suction. The patient did not tolerate one teaspoon of water. Drooling, immediate coughing, gurgling, or clearing of the throat was noted. Bedside swallow screening discontinued. Patient kept NPO until cleared by Speech Therapy or Physician. The patient failed the bedside swallow screening. The patient will be kept NPO until cleared by Speech Therapy or Physician. Provider notified of bedside swallow screening results: Israel Frias MD. Assessment: 22:59 Reassessment: pt daughter contacted at [phone] who stated she has been with the pt sg this evening. was outside taking the trash out around 2016, when she came back inside she noticed the pt having difficulty speaking, garbled and slurred worse than normal, and was not able to eat cereal, noticed having left sided facial droop as well was coughing and having difficulty swallowing. Last seen well at 2029. 22:59 Reassessment: pt daughter states this patient had similar episodes in December, but was not sg seen or diagnosed with CVA or TIA at the time. 23:00 VAN Scoring: Arm Drift: Patients demonstrates NO arm weakness. Patient is VAN Negative. rv The patient exhibits slurred or garbled speech. The patient is exhibiting difficulty speaking. The patient does not exhibit difficulty understanding words. The patient is able to swallow own secretions with no drooling or need for suction. The patient did not tolerate one teaspoon of water. Drooling, immediate coughing, gurgling, or clearing of the throat was noted. Bedside swallow screening discontinued. Patient kept NPO until cleared by Speech Therapy or Physician. The patient failed the bedside swallow screening. The patient will be kept NPO until cleared by Speech Therapy or Physician. Provider notified of bedside swallow screening results: Israel Frias MD. 23:03 Reassessment: a code stroke has been activated at this time after speaking with pt sg family. 23:05 Reassessment: provider spoke to the daughter saying that she saw the patient with mg2 drooping on the left side of his face \T\2030 tonight. 23:17 The patient has not been NPO before screening. The patient is alert, and able to follow rv commands. 23:30 Reassessment: [facility] on the phone, reports the pt to have a negative rv head and CTA scan for any acute findings at this time. awaiting the official report to be faxed over, notified, primary nurse notified orders received to administer TPA at this time, see EMAR. 23:30 T-PA (Activase) Screening: Indications: Definite evidence of stroke, ischemic, embolic, rv or hypertensive: Yes. Treatment will start within 4.5 hours onset of symptoms: Yes. No evidence of intracranial hemorrhage or CT of head and no evidence of peripheral hemorrhage or recent CVA: Yes. Consent for thrombolytic therapy: Yes. 04/05 00:30 Reassessment: patient complained of sudden pain on the back, 05/28. referred to Dr brandon Frias. plain abdominal CT scan done. Morphine IV given. 00:44 Reassessment: attempt to call report to the receiving nurse, transfer center states sg that they need to speak with the store warehouse associate due to changes in the bed assignment at this time, awaiting to call back to give report, primary nurse remains at bedside at this time, awaiting EMS for pt transport to receiving facility. 00:45 The patient did not tolerate 90mL of water. Drooling, immediate coughing, gurgling, or rv clearing of the throat was noted. Bedside swallow screening discontinued. Patient kept NPO until cleared by Speech Therapy or Physician. 00:50 Reassessment: pt called and updated on POC and where pt will be going, pt sg stated understanding, will continue to monitor. 01:22 Neuro: Level of Consciousness is awake, alert, obeys commands, Oriented to person, rv place, time, situation. Vital Signs: 04/04 22:41 BP 126 / 76; Pulse 66; Resp 16; Temp 98; Pulse Ox 98% ; Weight 108.86 kg; Height 6 ft. rv 0 in. (182.88 cm); Pain 0/10; 23:22 Weight 103.96 kg (M); rv 04/05 00:00 BP 136 / 108; Pulse 66; Resp 16; Pulse Ox 100% on R/A; rv 00:30 BP 146 / 86; Pulse 64; Resp 17; Pulse Ox 99% on R/A; rv 01:00 BP 138 / 90; Pulse 64; Resp 15; Temp 98; Pulse Ox 99% on R/A; rv 01:14 Pain 5/10; rv 04/04 23:22 Body Mass Index 31.08 (103.96 kg, 182.88 cm) rv NIH Stroke Scale Scores: 04/04 23:25 NIHSS Score: 2 rv 23:54 NIHSS Score: 3 shannon 04/05 00:41 NIHSS Score: 2 rv 01:22 NIHSS Score: 2 rv ED Course: 04/04 22:38 Patient arrived in ED. am2 22:41 Rohit Ha, DASH is Primary Nurse. rv 22:43 Triage completed. rv 22:49 Israel Frias MD is Attending Physician. shannon 23:00 Patient has correct armband on for positive identification. Placed in gown. Bed in low rv position. Call light in reach. 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 Pulse ox on. NIBP on. rv 23:00 No provider procedures requiring assistance completed. Maintain EMS IV. Dressing rv intact. Good blood return noted. Site clean \T\ dry. Gauge \T\ site: G20N RIGHT AC. 23:27 CT Stroke Brain w/o Contrast In Process Unspecified. EDMS 23:27 CT Head Angio In Process Unspecified. EDMS 23:28 Stroke CXR 1 View In Process Unspecified. EDMS 23:41 Transfer initiated with [facility] \T\ [facility]. Waited on the phone to speak with ar5 Neurologist. 23:42 Arm band placed on Patient placed in the treatment room, on a stretcher, Patient rv notified of wait time. 04/05 00:09 Acceptance given by [facility] \T\0009 to go to [facility] ER. Dr. Nirali Hui accepted ar5 pt. \T\[id number]. 00:31 [facility] notified to come get pt. ar5 00:34 CT Abd/Pelvis - Without Contrast In Process Unspecified. EDMS 01:22 IV is patent, with fluids infusing freely, with good blood return, Patient transferred, rv IV remains in place. Administered Medications: 04/04 00:30 Drug: morphine 2 mg Route: IVP; Site: right antecubital; rv 04/05 01:14 Follow up: Pain 5/10 Adult; Response: No adverse reaction; Marked relief of symptoms; rv Pain is decreased; RASS: Alert and Calm (0) 04/04 23:30 Drug: NS 0.9% 1000 ml Route: IV; Rate: 1 bolus; Site: right antecubital; rv 04/05 01:16 Follow up: IV Status: Completed infusion; IV Intake: 1000ml rv 04/04 23:30 Drug: foLIC Acid 1 mg Route: IVPB; Site: right antecubital; rv 04/05 01:16 Follow up: IV Status: Completed infusion rv 04/04 23:30 Drug: Pepcid 20 mg Route: IVP; Site: right antecubital; rv 04/05 01:15 Follow up: Response: No adverse reaction rv 04/04 23:33 Drug: ACTIvase {Co-Signature: claudio (Cindy Fraire RN).} Route: IV Thrombolytics; Rate: rv calculated rate; Infused Over: 60 mins; 04/05 01:15 Follow up: Response: No adverse reaction rv 01:15 Follow up: Response: Other; completed infusion rv 01:15 Drug: morphine 2 mg Route: IVP; Site: right antecubital; rv 01:15 Follow up: Response: Medication administered at discharge. rv Intake: 01:16 IV: 1000ml; Total: 1000ml. rv Outcome: 00:11 ER care complete, transfer ordered by . shannon 01:21 Transferred by [facility] to [facility], Transfer form completed. rv X-rays sent w/ patient. 01:21 Condition: good 01:21 Instructed on the need for transfer. 01:23 Patient left the ED. rv NIH Stroke Scale - NIH Stroke Score Date: 04/04/2020 Time: 23:25 Total Score = 2 1a. Level of Consciousness (LOC) - 0(Alert) 1b. Level of Consciousness (LOC) (Year \T\ Age) - 0(Both) 1c. LOC Commands (Open \T\ Closes Eyes/Cardroom Manager) - 0(Both) 2. Best Gaze (Lateral Gaze Paresis) - 0(Normal) 3. Visual Field Loss - 0(No visual loss) 4. Facial Palsy - 1(Minor Paralysis) 5a. Left Arm: Motor (10-second hold) - 0(No drift) 5b. Right Arm: Motor (10-second hold) - 0(No drift) 6a. Left Leg: Motor (5-second hold - always test supine) - 0(No drift) 6b. Right Leg: Motor (5-second hold - always test supine) - 0(No drift) 7. Limb Ataxia (finger/nose \T\ heel/barragan - test with eyes open) - 0(Absent) 8. Sensory Loss (pinprick arms/legs/face) - 0(Normal) 9. Best Language: Aphasia (description/naming/reading) - 0(No aphasia) 10. Dysarthria (speech clarity - read or repeat words) - 1(Mild to Moderate) 11. Extinction and Inattention (visual/tactile/auditory/spatial/personal) - 0(No abnormality) Initials: NIH Stroke Scale - NIH Stroke Score Date: 04/04/2020 Time: 23:54 Total Score = 3 1a. Level of Consciousness (LOC) - 0(Alert) 1b. Level of Consciousness (LOC) (Year \T\ Age) - 0(Both) 1c. LOC Commands (Open \T\ Closes Eyes/Cardroom Manager) - 0(Both) 2. Best Gaze (Lateral Gaze Paresis) - 0(Normal) 3. Visual Field Loss - 0(No visual loss) 4. Facial Palsy - 1(Minor Paralysis) 5a. Left Arm: Motor (10-second hold) - 0(No drift) 5b. Right Arm: Motor (10-second hold) - 0(No drift) 6a. Left Leg: Motor (5-second hold - always test supine) - 0(No drift) 6b. Right Leg: Motor (5-second hold - always test supine) - 0(No drift) 7. Limb Ataxia (finger/nose \T\ heel/barragan - test with eyes open) - 0(Absent) 8. Sensory Loss (pinprick arms/legs/face) - 0(Normal) 9. Best Language: Aphasia (description/naming/reading) - 1(Mild to moderate aphasia) 10. Dysarthria (speech clarity - read or repeat words) - 1(Mild to Moderate) 11. Extinction and Inattention (visual/tactile/auditory/spatial/personal) - 0(No abnormality) Initials: [facility] NIH Stroke Scale - NIH Stroke Score Date: 04/05/2020 Time: 00:41 Total Score = 2 1a. Level of Consciousness (LOC) - 0(Alert) 1b. Level of Consciousness (LOC) (Year \T\ Age) - 0(Both) 1c. LOC Commands (Open \T\ Closes Eyes/Cardroom Manager) - 0(Both) 2. Best Gaze (Lateral Gaze Paresis) - 0(Normal) 3. Visual Field Loss - 0(No visual loss) 4. Facial Palsy - 1(Minor Paralysis) 5a. Left Arm: Motor (10-second hold) - 0(No drift) 5b. Right Arm: Motor (10-second hold) - 0(No drift) 6a. Left Leg: Motor (5-second hold - always test supine) - 0(No drift) 6b. Right Leg: Motor (5-second hold - always test supine) - 0(No drift) 7. Limb Ataxia (finger/nose \T\ heel/barragan - test with eyes open) - 0(Absent) 8. Sensory Loss (pinprick arms/legs/face) - 0(Normal) 9. Best Language: Aphasia (description/naming/reading) - 0(No aphasia) 10. Dysarthria (speech clarity - read or repeat words) - 1(Mild to Moderate) 11. Extinction and Inattention (visual/tactile/auditory/spatial/personal) - 0(No abnormality) Initials: rv NIH Stroke Scale - NIH Stroke Score Date: 04/05/2020 Time: Total Score = 2 1a. Level of Consciousness (LOC) - 0(Alert) 1b. Level of Consciousness (LOC) (Year \T\ Age) - 0(Both) 1c. LOC Commands (Open \T\ Closes Eyes/Cardroom Manager) - 0(Both) 2. Best Gaze (Lateral Gaze Paresis) - 0(Normal) 3. Visual Field Loss - 0(No visual loss) 4. Facial Palsy - 1(Minor Paralysis) 5a. Left Arm: Motor (10-second hold) - 0(No drift) 5b. Right Arm: Motor (10-second hold) - 0(No drift) 6a. Left Leg: Motor (5-second hold - always test supine) - 0(No drift) 6b. Right Leg: Motor (5-second hold - always test supine) - 0(No drift) 7. Limb Ataxia (finger/nose \T\ heel/barragan - test with eyes open) - 0(Absent) 8. Sensory Loss (pinprick arms/legs/face) - 0(Normal) 9. Best Language: Aphasia (description/naming/reading) - 0(No aphasia) 10. Dysarthria (speech clarity - read or repeat words) - 1(Mild to Moderate) 11. Extinction and Inattention (visual/tactile/auditory/spatial/personal) - 0(No abnormality) Initials: rv Signatures: Dispatcher [employer] EDJames Evans RN RN sg Anderson, Corey, MD MD [facility] Pam am2 Darek Archuleta, RN RN [facility] Rohit Ha RN DASH rv Rolanda Parikh ar5 Cindy Fraire RN, ea Corrections: (The following items were deleted from the chart) 04/04 23:16 23:15 VAN Screening: Arm Drift: Patient shows no arm weakness. Patient is VAN rv negative. rv 23:21 22:41 Onset of symptoms was April 04, 2020 at 19:00 rv rv 23:26 22:41 Acuity: FRANCISCO 3 rv rv 04/05 00:43 04/04 23:17 Patient has been NPO before screening. The patient is alert, and rv able to follow commands. rv 04/05 00:43 04/04 23:17 NIHSS Score: 0 rv rv 04/05 00:43 04/04 23:00 The patient does not exhibit slurred or garbled speech. The patient rv is not exhibiting difficulty speaking. The patient does not exhibit difficulty understanding words. The patient is able to swallow own secretions with no drooling or need for suction. Patient tolerated one teaspoon of water. No drooling, immediate coughing, gurgling, or clearing of the throat was noted. The patient tolerated 90mL of water. No drooling, immediate coughing, gurgling, or clearing of the throat was noted. 04/05 00:45 04/04 23:58 Reassessment: [facility] on the phone, reports the rv pt to have a negative head and CTA scan for any acute findings at this time. awaiting the official report to be faxed over, notified, primary nurse notified orders received to administer TPA at this time, see EMAR 04/05 01:20 04/04 23:45 morphine 2 mg IVP in right antecubital rv rv
[2020-04-05] MEDS ORDERED: MORPHINE 2 MG/ML SYR ONE ×2 (00:40→01:09)
[2020-04-05] MEDS ORDERED: ONDANSETRON 4 MG/2 ML VIAL ONE (00:41)
[2020-04-05 01:28] VITALS: TEMP 98
[2020-04-05 01:31] VITALS: O2SAT 99
[2020-04-05 01:32] VITALS: BP 138/90
--- NOTE | 2020-04-05 16:57 | RAD REPORT ---
EXAM DESCRIPTION: Head angio CT head without IV contrast CLINICAL HISTORY: Slurred speech;TIA, 79-year-old male with facial droop that started at 7:00 PM, ge neralized weakness TECHNIQUE: Multiple axial CT images of the brain were performed followed by sagittal and coronal rec onstructed images. The CT study is performed according to ALARA (as low as reasonably achievable) or ALARA/IMAGE GENTLY, with automatic adjustment of mA and/or kV according to patient size. Performed on: 04/04/2020 at 11:09 PM COMPARISON: None. FINDINGS: Brain: There is no evidence of mass, acute mass effect or midline shift. There are no acut e extra-axial fluid collections. There is no evidence of acute intracranial hemorrhage. The cerebra l sulci and ventricles are prominent consistent with mild cerebral volume loss..There are scattered a reas of decreased attenuation within the subcortical and periventricular white matter most likely due to mild chronic microangiopathy. There are old small bilateral lacunar infarcts. There are calcifica tions along the cavernous carotid arteries and distal vertebral arteries. Paranasal Sinuses and Mastoids: There is marked opacification of the left frontal sinus and anterior left ethmoid air cells. There may be partial opacification of the inferior right mastoid air cells. Orbits: The orbital contents are grossly unremarkable. Bones: No acute osseous abnormalities are identified. Soft Tissues: No focal soft tissue abnormalities are identified. IMPRESSION: 1. There is no evidence of acute intracranial pathology. 2. Mild cerebral atrophy with findings compatible with chronic microangiopathy and old small bilatera l lacunar infarcts. 3. Marked opacification of the left frontal sinus and anterior left ethmoid air cells. There may be p artial opacification of the inferior right mastoid air cells. These critical findings were discussed with James Butler, charge nurse on 04/04/2020 at 11: 47 PM [facility] time. EXAM DESCRIPTION: CT head angiography with IV contrast CLINICAL HISTORY: 79-year-old male with slurred speech, TIA, facial droop that started at 7:00 PM, g eneralized weakness. TECHNIQUE: Following dynamic intravenous nonionic contrast infusion, multiple axial helical overlapp ed CT images with multiplanar reconstructions were obtained. All CT data was transferred to a 3D [employer] rkstation for multiplanar reformation and 3D reconstruction. The CT study is performed according to A DERECK (as low as reasonably achievable) or ALARA/IMAGE GENTLY, with automatic adjustment of mA and/or kV according to patient size. COMPARISON: None FINDINGS: There is optimal intracranial vascular enhancement. LEFT: INTERNAL CAROTID ARTERY: The distal internal carotid artery is unremarkable. There are atherosclerotic calcifications along th e cavernous left ICA. ANTERIOR CEREBRAL ARTERY: he A1 segment is normal in caliber and contour. The A2 segment is normal i n caliber and contour. The region of the anterior communicating artery is unremarkable. MIDDLE CEREBRAL ARTERY: The M1 segment is normal in caliber and contour. The M2 branches normal in c aliber and contour. POSTERIOR CEREBRAL ARTERY: he P1 segment is normal in caliber and contour. The P2 segment is normal in caliber and contour. The left posterior communicating artery is hypoplastic. VERTEBRAL ARTERY: The intradural left vertebral artery is normal in caliber and contour. There are m inimal atherosclerotic calcifications along the intradural left vertebral artery. RIGHT: INTERNAL CAROTID ARTERY: The distal internal carotid artery is unremarkable. There are atherosclerotic calcifications along th e cavernous right ICA. ANTERIOR CEREBRAL ARTERY: The A1 segment is normal in caliber and contour. The A2 segment is normal in caliber and contour. MIDDLE CEREBRAL ARTERY: he M1 segment is normal in caliber and contour. The M2 branches normal in ca liber and contour. POSTERIOR CEREBRAL ARTERY: The P1 segment is normal in caliber and contour. The P2 segment is normal in caliber and contour. The right posterior communicating artery is hypoplastic. VERTEBRAL ARTERY: The intradural right vertebral artery is normal in caliber and contour. There are atherosclerotic calcifications along the intradural right vertebral artery. BASILAR ARTERY: The basilar artery is normal in caliber and contour. DURAL VENOUS SINUSES: The dural venous sinuses are patent. NON-ANGIOGRAPHIC FINDINGS: There is marked opacification of the left frontal sinus and anterior left ethmoid air cells. Partial opacification of the inferior right mastoid air cells. There are no focal pathologic areas of enhance ment within the brain parenchyma. IMPRESSION: 1. Atherosclerotic calcifications along the cavernous internal carotid arteries bilate rally and distal vertebral arteries. Otherwise, unremarkable intracranial CTA. 2. Marked opacification of the left frontal sinus and anterior left ethmoid air cells. These critical findings were discussed with James Butler, charge nurse on 04/04/2020 at 11: 47 PM [facility] time. Electronically signed by: Zuleima Saucedo DO 04/04/2020 11:49 PM CDT Due to temporary technical issues with the PACS/Fluency reporting system, reports are being signed by the in house radiologist without review as a courtesy to ensure prompt reporting. The interpreting r adiologist is fully responsible for the content of the report.
--- NOTE | 2020-04-05 17:17 | RAD REPORT ---
EXAM DESCRIPTION: AMADOU MARCELINO [id number] - Abdomen Pelvis Wo Contrast EXAM DESCRIPTION: CT ABDOMEN AND PELVIS WITHOUT CONTRAST CLINICAL HISTORY: ABD PAIN COMPARISON: None Available. TECHNIQUE: CT of the abdomen and pelvis without IV contrast. Evaluation of the solid organs and vasc ulature is suboptimal due to lack of IV contrast. FINDINGS: Lung Bases: The visualized lung bases are clear. Coronary artery atherosclerosis. Bones: Degenerative endplate spondylosis and facet arthropathy. Abdomen: Liver: Multiple hypodensities in the liver, the largest in the left hepatic lobe measuring 3.2 cm may represent cysts or hemangiomas. Gallbladder: No calcified gallstones. Spleen, Pancreas, and Adrenal Glands: The spleen, pancreas, and adrenal glands are unremarkable. Kidneys: The kidneys have normal size without evidence of hydronephrosis. No obstructing ureteral pierre culi. Previous administered contrast identified in the renal collecting systems. Vasculature: Aortoiliac atherosclerosis. IVC is unremarkable. Stomach: The stomach and duodenum have normal course. Other: No free intraperitoneal air. No free fluid or lymphadenopathy. Tiny fat-containing umbilic al hernia. Pelvis: Bladder: Urinary bladder is unremarkable. Bowel: No dilated loops of large or small bowel. Diverticulosis without evidence of acute diverticu litis. Appendix: Not identified. Pelvis: Prostate is not enlarged. IMPRESSION: 1. No acute inflammatory or obstructive process identified. 2. Multiple cystic structures in the liver, the largest measuring 3.2 cm likely representing cysts or hemangiomas. 3. Diverticulosis without evidence of acute diverticulitis. This exam was performed according to our departmental dose-optimization program, which includes autom ated exposure control, adjustment of the mA and/or kV according to patient size and/or use of iterati ve reconstruction technique. Electronically signed by: Sanjeev Rios 04/05/2020 12:43 AM CDT Due to temporary technical issues with the PACS/Fluency reporting system, reports are being signed by the in house radiologist without review as a courtesy to ensure prompt reporting. The interpreting r adiologist is fully responsible for the content of the report.
--- NOTE | 2020-04-06 07:41 | EKG ---
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
== END 2020-04-05 01:23 | disposition short-term general hospital (02) ==
LOC: ER 22:36
DX: I63.9 Cerebral infarction, unspecified (principal); R47.01 Aphasia; I10 Essential (primary) hypertension; R29.703 NIHSS score 3; R13.10 Dysphagia, unspecified; I12.9 Hypertensive chronic kidney disease with stage 1 through stage 4 chronic kidney disease, or unspecified chronic kidney disease; N17.9 Acute kidney failure, unspecified; N18.9 Chronic kidney disease, unspecified; Z79.82 Long term (current) use of aspirin
CPT/HCPCS: 96365; 92977; 93005; 85025; 80048; 36415; 83735; 85610; 82947; 85730; 85652; 84484; 86140; 70496; 74176; 70450; 71045; 96375; 99291; 96366; 96374; Q9967; J2997; J2270 ×2; J7030 ×2; J2405

== ENCOUNTER 2020-10-15 08:20 | Emergency (ER) | payer OTHER ==
--- OUTSIDE RECORDS SUMMARY | 2020-10-15 08:25 | XMS REPORT | Continuity of Care Document ---
:1940 Author Organization [facility] t Address [address] [place] [address] Care Team Providers Name Role Phone Barber Coleman Attending Clinician [phone] Mely Hui MD Attending Clinician MELY HUI Attending Clinician Unavailable Lab, Fam Pob I Attending Clinician Unavailable MELY HUI Admitting Clinician Unavailable Payers Payer Name Policy Type Policy Effective Date Expiration Date Sour ce Number MEDICAREMEDICARE A [id number] 2007 ZARIA Echevarria [id number] 2007-P 00:00:00 - Medical [facility] Center AETNA - MEDICARE MGD [id number] 2013 ZARIA Moore CARETNA MEDICARE O 00:00:00 - Medical [id number] 2013- Ce nter [phone] [address], [place] [address]Bcnl Contracted AET - MGD CAREAET [id number] 2013 ZARIA Moore INDEMNITY NON 00:00:00 - Medical [id number] Ce nter 4-PresentComm Problems Condition Condition Condition Status Onset Resolution Last Treating Co mments Source Name Details Category Date Date Treatment Clinician Date Ischemic Ischemic Disease Active ZARIA mcclure stroke stroke 04-05 [facility] - 00:00: Medical 00 Center Neuropathy Neuropathy Problem Active [facility] peripheral peripheral [facility]ia [facility] Nocturia Nocturia Problem [facility] Chronic Chronic Problem Active [facility] hepatitis hepatitis [facility] - C C [facility] l [facility] Chronic Chronic Problem Active [facility] kidney kidney [facility] - disease, disease, Memori a stage III stage III l (moderate) (moderate) Ou tpa ent Clinics Ischemic Ischemic Problem Active [facility] cardiomyop cardiomyop [facility] Tinnitus Tinnitus Problem [facility] Adult BMI Adult BMI Problem Active [facility] 38.0-38.9 38.0-38.9 Luke s - kg/sq m kg/sq m [facility] Low back Low back Problem Active [facility] pain pain [facility] Renal Renal Problem Active [facility] disease disease [facility] Disorders Disorders Problem Active [facility] of of [facility] - endocrine endocrine Zachary slime glands in glands in l diseases diseases Outpat i classified classified en t elsewhere elsewhere Clin ics Obstructiv Obstructiv Problem Active [facility] e sleep e sleep [facility] - apnea apnea [facility] Hypogonadi Hypogonadi Problem Active [facility] sm male sm male [facility] Anxiety Anxiety Problem Active [facility] and and [facility] - depression depression Me moria l [facility] Chronic Chronic Problem Active [facility] obstructiv obstructiv Tonia kes - e e Memoria pulmonary pulmonary l disease disease [facility] Benign Benign Problem Active [facility] hypertroph hypertroph Tonia kes - y of y of Memoria prostate prostate l [facility] Fibromyalg Fibromyalg Problem Active [facility] ia ia [facility]ics Sciatica Sciatica Problem Active [facility] of right of right [facility] - side side [facility] Primary Primary Problem Active [facility] osteoarthr osteoarthr Tonia kes - itis of itis of Memoria left knee left knee l [facility] Primary Primary Problem Active [facility] osteoarthr osteoarthr Tonia kes - itis of itis of Memoria right knee right knee l [facility] Kidney Kidney Diagnosis Active [facility] stones stones [facility] Mixed Mixed Problem Active [facility] hyperlipid hyperlipid Tonia kes - emia emia [facility] Atrial Atrial Problem Active [facility] fibrillati fibrillati Tonia kes - on on [facility] Fatigue Fatigue Problem Active [facility] Urinary Urinary Diagnosis Active [facility] incontinen incontinen [facility] k[facility] - ce ce [facility] Peripheral Peripheral Problem Active [facility] vascular vascular [facility] - disease disease [facility] Anemia, Anemia, Problem Active [facility] unspecifie unspecifie Tonia kes - d type d type [facility] Pain, Pain, Problem Active [facility] joint, joint, [facility] - knee, knee, Memoria right right l [facility] Primary Primary Problem Active [facility] osteoarthr osteoarthr Tonia kes - itis of itis of Memoria both knees both knees l [facility]ics Mixed Mixed Problem Active [facility] stress and stress and Tonia kes - urge urge Memoria urinary urinary l incontinen incontinen Ou tpati ce ent Clinics Benign Benign Problem Active [facility] essential essential Luke s - HTN HTN [facility] Ischemic Ischemic Problem Active [facility] heart heart [facility] - disease disease [facility] Dizziness Dizziness Problem Active [facility] GERD GERD Problem Active [facility] (gastroeso (gastroeso Tonia kes - phageal phageal Memoria reflux reflux l disease) disease) Outpat i ent Clinics Vitamin D Vitamin D Problem Active [facility] deficiency deficiency Tonia kes - Memoria l [facility] 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 Clinician (SIG) Name Name aspirin 81 2020- No 81mg QD Take [address] [facility] MG chewable 8-20 08-20 tablet (81 L ukes - tablet 00:00: 23:59 mg total) Medic al 00 :00 by mouth Center daily. amLODIPine 2019-0 Yes 10mg QD Take [address] (NORVASC) 5 8-19 by mouth Luke s - MG tablet 15:01: daily. Medica l [address] [place] gabapentin 2020-0 Yes 400mg QD Take [address] (NEURONTIN) 8-19 mg by [facility] - 400 MG 15:01: mouth Medical capsule 48 daily. [facility] carvediloL 2019-0 Yes 25mg QD Take [address] (COREG) 25 8-19 by mouth [facility] - MG tablet 15:01: daily. Medica l [address] [place] buPROPion 2019-0 Yes 300mg QD Take [address] (WELLBUTRIN 8-19 mg by [facility] - XL) 300 MG 15:01: mouth Medica l 24 hr 48 daily. [facility] tablet sertraline 0 Yes 125mg QD Take [address] (ZOLOFT) 8-19 mg by [facility] - 100 MG 15:01: mouth Medical tablet 48 daily. [facility] pantoprazol 0 Yes 40mg QD Take [address] e 8-19 by mouth [facility] - (PROTONIX) 15:01: daily. Medic al 40 MG 48 [facility] tablet multivitami 0 Yes 1{tbl} QD Take [address] n per 8-19 tablet by [facility] - tablet 15:01: mouth Medical 48 daily. [facility] clopidogreL 2019-0 Yes 75mg QD Take [address] (PLAVIX) 75 8-19 by mouth Luke s - mg tablet 15:01: daily. Medica l [address] [place] aspirin 325 2019-0 2020- No 325mg QD Take [address] MG tablet 04-06 08-19 mg by [facility]ukes - 14:06: 00:00 mouth Medical 10 :00 daily. [facility] pravastatin 2020-0 2020- No 40mg QD Take [address] (PRAVACHOL) -06 04-19 by mouth [place] - 40 MG 13:04: 00:00 daily. Medical tablet 58 :00 [facility] losartan 2019-0 2020- No 50mg QD Take [address] (COZAAR) 50 04-06- by mouth [place] es - MG tablet 13:04: 00:00 daily. Medic al 58 :00 Center atorvastati 2020- No 80mg QD Take [address] n (LIPITOR) 04-06 tablet (80 L ukes - 80 MG 00:00: 23:59 mg total) Medica l tablet 00 :00 by mouth Center nightly. Ditropan Ditropan Yes Elaina 1/[address] 9-05 [facility] - 00:00: Memoria 00 l Outpati ent Clinics Testosteron Testosteron Yes Elaina [address] [facility] [facility] e Cypionate e Cypionate 1-03 Sk[place]ar [facility] - 00:00: Memoria 00 l Outpati ent Clinics Coreg Coreg Yes Elaina not [facility] Jo defined [facility] - Memoria l Outpati ent Clinics Isosorbide Isosorbide Yes Elaina [address] Mononitrate Mononitrate Sk[place]ar in the Lukes - ER ER morning Memoria l Outpati ent Clinics Vitamin D3 Vitamin D3 Yes Elaina [address] Jo [facility] - Memoria l Outpati ent Clinics Potassium Potassium Yes Elaina [address] Jo with food Lukes - Porsche ER Porsche ER Memoria l Outpati ent Clinics Gabapentin Gabapentin Yes Elaina [address] [facility] - Memoria l Outpati ent Clinics Zocor Zocor Yes Elaina [address] Skylar in the Lukes - evening Memoria l Outpati ent Clinics Lotrisone Lotrisone Yes Elaina APPLY [facility] Skylar TOPICALLY [facility] - TO AREA Memoria ONCE A DAY l AT BED Outpati TIME ent Clinics Amlodipine Amlodipine Yes Elaina [address] Jo [place] - Memoria l Outpati ent Clinics Wellbutrin Wellbutrin Yes Elaina [address] XL XL [facility] in the [facility]ukes - morning Memoria l Outpati ent Clinics Hydrochloro Hydrochloro Yes Elaina [address] Jo in the L ukes - morning Memoria l Outpati ent Clinics Vitamin Vitamin Yes Elaina not [facility] [id number] Skylar defined [facility]ukes - Acid Acid Memoria l Outpati ent Clinics Zoloft Zoloft Yes Elaina [address] Skylar [facility] - Memoria l Outpati ent [facility] Pantoprazol Pantoprazol Yes Elaina [address] e Sodium e Sodium Sk[place]ar [place] - [facility] ent Clinics Nuvigil Nuvigil Yes Elaina [address] [facility] in the [facility] - morning [facility] Omeprazole Omeprazole Yes Elaina [address] Skylar [facility] Vital Signs Vital Name Observation Time Observation Value Comments Source Systolic blood 2020-04-06 13:00:00 146 mm[Hg] [facility] Diastolic blood 2020-04-06 13:00:00 86 mm[Hg] [facility] Heart rate 2020-04-06 13:00:00 57 /min [facility] Respiratory rate 2020-04-06 13:00:00 29 /min [facility] Oxygen saturation in 2020-04-06 13:00:00 100 /min [facility] - Arterial blood by Medical Ce nter Pulse oximetry Body temperature 2020-04-06 08:00:00 37.06 Annalise [facility] Body weight 2020-04-06 04:00:00 97.9 kg [facility] BMI 2020-04-06 04:00:00 29.27 kg/m2 [facility] Body height 2020-04-05 02:33:00 182.9 cm [facility] Procedures Procedure Date / Time Performed Performing Clinician Sour e RHYTHM STRIP - SCAN 2020-04-07 13:40:27 Provider, Default [facility] REPORT OF PROCEDURE - 2020-04-07 13:40:25 Provider, Default [facility] ENDOSCOPY SCAN [facility] XR ESOPH SWALLOW 2020-04-06 11:58:00 Tess Martinez [facility] - FUNCTION W/CINE VIDEO Medical Ce nter TROPONIN I 2020-04-06 00:59:00 Kolby Liz [facility] BASIC METABOLIC PANEL 2020-04-06 00:59:[address] [facility] (7) [facility] MR BRAIN WITHOUT IV 2020-04-05 21:50:00 [facility] MRA HEAD WITHOUT IV 2020-04-05 21:50:00 [facility] NECK WITHOUT IV 2020-04-05 21:50:00 Wilmer Rodriges [facility] 2D ECHO MODE W/O DOPPLER 2020-04-05 09:22:10 [facility] 2020-04-05 06:31:53 [facility] CHEST 1 VIEW 2020-04-05 05:21:00 [facility] PORTABLE/BEDSIDE [facility] BASIC METABOLIC PANEL 2020-04-05 03:44:00 [facility] (7) [facility] LIPID PANEL 2020-04-05 03:44:00 [facility] CBC W/PLT COUNT & AUTO 2020-04-05 03:44:00 [facility] APTT 2020-04-05 03:44:00 [facility] PROTHROMBIN TIME/INR 2020-04-05 03:44:00 [facility] HEMOGLOBIN A1C 2020-04-05 03:44:00 [facility] VITAMIN B12 2020-04-05 03:44:00 [facility] FOLATE, SERUM 2020-04-05 03:44:00 [facility] TSH/FREE T4 IF INDICATED 2020-04-05 03:44:00 [facility] TROPONIN I 2020-04-05 03:44:00 [facility] HEPATIC FUNCTION PANEL 2020-04-05 03:44:00 [facility] Plan of Care Planned Activity Planned Date Details Comments Source Future Scheduled 2020-04-19 INFLUENZA VACCINE (#1) [facility] Test 00:00:00 [code = INFLUENZA Medical Ce nter VACCINE (#1)] Future Scheduled 2008-11-[address] [facility] - Test 00:00:00 WELLNESS (YEAR 2 or Medical Center FIRST YEAR if no IPPE) [code = MEDICARE ANNUAL WELLNESS (YEAR 2 or FIRST YEAR if no IPPE)] Future Scheduled 2007-12-05 PNEUMOCOCCAL 65+ YRS [facility] - Test 00:00:00 (1 of 1 - Medical Center [id number] PCV13) [code = PNEUMOCOCCAL 65+ YRS (1 of 1 - [id number] PCV13)] Encounters Start End Encounter Admission Attending Care Care Encounter Source Date/Time Date/Time Type Type Clinicians Facility Department ID 2020-10-10 2020-10-10 Outpatient Jared [facility] [id number] 00:00:00 00:00:00 Erickson [id number] Barber [id number] 2020-09-06 2020-09-06 Outpatient Jared [facility] [id number] 00:00:00 00:00:00 Erickson [id number] Barber [id number] 2020-04-29 2020-04-29 [place] [id number] [facility] [address] 16:00:00 16:00:00 t Specialty/U Tonia kes - Specialty rology Memori a /Urology Clinic l Clinic Outpati ent Clinics 2020-04-29 2020-04-29 [facility] [id number] [address] 13:00:00 13:00:00 t Specialty/U Tonia kes - Specialty rology Memori a /Urology Clinic l Clinic Outpati ent Clinics 2020-03-22 2020-03-22 Laboratory Lab, [facility] [id number] 14:05:14 14:25:14 Only Fam [facility] [id number] [place] [id number] Rickey [id number] nal [address] 2020-01-28 2020-01-28 [place] [id number] 13:15:00 13:15:00 t Specialty/U Tonia kes - Specialty rology Memori a /[facility]rology [facility] 2020-01-25 2020-01-25 [facility] [id number] 13:46:00 13:46:00 t Specialty/U Tonia kes - Specialty rology Memori a /Urology Clinic l [facility] 2019-12-28 2019-12-28 Outpatient [facility] [facility] [id number] 13:30:00 13:30:00 t Specialty/U Tonia kes - Specialty rology Memori a /Urology Clinic l [facility] Results Test Description Test Time Test Comments Results Result Sourc e Comments FL, KERRY, 2020-03-19 MBS w/parish FINAL REPORT PATIENT SWALLOW 9 SLPReason for ID: [id number] FUNCTION, WITH 14:54:00 exam:->dsphagi EXAMINATION: Modified CINE OR VIDEO a/aspiration/C barium swallow study VA INDICATION: CVA COMPARISON: None. TECHNIQUE: The examination was performed in conjunction with speech pathology. Varying consistencies of barium was administered under lateral fluoroscopic observation. Fluoroscopy time: 1.6 minutesNumber of images: 3 IMPRESSION: No aspiration. Flash penetration with thin consistency barium. Please refer to speech pathologist note from same day for further description. Signed: Quentin Mendez Verified Date/Time: 04/06/2020 14:54:40 Reading Location: [address] Transitional Reading Room esoph swallow 2020-03-19 Interface, External Ris [facility] St funct with cine 9 In - 04/06/2020 2:56 [facility] - video 14:54:00 PM CDTFINAL REPORT Medica l Ce nter EXAMINATION: Modified barium swallow study INDICATION: CVA COMPARISON: None. TECHNIQUE: The examination was performed in conjunction with speech pathology. Varying consistencies of barium was administered under lateral fluoroscopic observation. Fluoroscopy time: 1.6 minutesNumber of images: 3 IMPRESSION: No aspiration. Flash penetration with thin consistency barium. Please refer to speech pathologist note from same day for further description. Signed: Quentin Mendez Verified Date/Time: 04/06/2020 14:54:40 Reading Location: [address] Transitional Reading Room 12 lead 2020-03-19 Interface, External Ris [facility] 9 In - 04/06/2020 8:49 [place] es - 08:49:49 AM CDTVentricular Rate Me dical 56 BPMAtrial Rate 56 Cent er BPMP-R Interval 218 msQRS Duration 162 msQ-T Interval 470 msQTC Calculation(Bazett) 453 msP [place] 63 degreesR [place] -55 degreesT [place] -8 degreesSinus bradycardia with sinus arrhythmia with 1st degree A-V blockRight bundle branch blockLeft anterior fascicular block Bifascicular block Abnormal ECGNo previous ECGs availableConfirmed by Edgardo Garcia ([id number]) on 04/06/2020 8:49:44 AM Basic Metabolic Panel 2020-04-06 01:55:00 Test Item Value Reference Range Interpretation Comme nts Sodium (test code = 139 meq/L 404-496 8936-2) Potassium (test code = 3.8 meq/L 3.5-5.1 2823-3) Chloride (test code = 107 meq/L 98-107 2075-0) CO2 (test code = 25 meq/L 22-29 8-9) BUN (test code = 15 mg/dL 7-21 3094-0) Creatinine (test code = 1.08 mg/dL 0.57-1.25 2160-0) Glucose (test code = 75 mg/dL 70-105 2345-7) Calcium (test code = 8.7 mg/dL 8.4-10.2 84957-6) EGFR (test code = 66 mL/min/1.73 sq m ESTIMA JON GFR [place] NOT 01799-9) ACCURATE CREATININE KHOA BEAUCHAMP IN PREDICTING GLOMERULAR FILT RATION RATE. ESTIMATED GFR IS NOT APPLICABLE FOR DIALYSIS PATIEN ADILENE (test code = ADILENE) Registered Nurse Bone Marrow Transplant ID - PIAYA L [facility] METABOLIC [id number] 01:55:00 Test Item Value Reference Range Interpretation Comments SODIUM (BEAKER) 139 meq/L 136-145 (test code = 381) POTASSIUM (BEAKER) 3.8 meq/L 3.5-5.1 (test code = 379) CHLORIDE (BEAKER) 107 meq/L 98-107 (test code = 382) CO2 (BEAKER) (test 25 meq/L 22-29 code = 355) BLOOD UREA NITROGEN 15 mg/dL 7-21 (BEAKER) (test code = 354) CREATININE (BEAKER) 1.08 mg/dL 0.57-1.25 (test code = 358) GLUCOSE RANDOM 75 mg/dL 70-105 (BEAKER) (test code = 652) CALCIUM (BEAKER) 8.7 mg/dL 8.4-10.2 (test code = 697) EGFR (BEAKER) (test 66 mL/min/1.73 ESTIMA JON GFR IS code = 1092) sq m NOT ACCURATE CREATININE CLEARANCE IN PREDICTING GLOMERULAR FILTRATION RATE . ESTIMATED GFR I S NOT APPLICABLE FOR DIALYSIS PATIEN TS. Registered Nurse Bone Marrow Transplant ID - PIAYA LTroponin [id number] 01:52:00 Test Item Value Reference Range Interpretation Comments Troponin I (test code = 0.04 ng/mL 0-0.03 H 98196-4) ADILENE (test code = ADILENE) Troponin I (TnI) levels must be interpreted in the context of the presenting symptoms and the clinical findings. Elevated TnI levels indicate myocardial damage, but are not specific for ischemic heart disease. Elevated TnI levels are seen in patients with other cardiac conditions (including myocarditis and congestive heart failure), and slight TnI elevations occur in patients with other conditions, including sepsis, renal failure, acidosis, acute neurological disease, and persistent tachyarrhythmia.Opera tor ID - PIAYA L Lab Interpretation (test Abnormal code = 89872-9) [facility] [id number] 01:52:00 Test Item Value Reference Range Interpretation Comments TROPONIN I (BEAKER) (test code = 0.04 ng/mL 0.00-0.03 H 397) Troponin I (TnI) levels must be interpreted in the context of the presenting symptoms and the clinical findings. Elevated TnI levels indicate myocardial damage, but are not specific for ischemic heart disease. Elevated TnI levels are seen in patients with other cardiac conditions (including myocarditis and congestive heart failure), and slight TnI elevations occur in patients with other conditions, including sepsis, renal failure, acidosis, acute neurological disease, and persistent tachyarrhythmia.Registered Nurse Bone Marrow Transplant ID - PIAYA LMR, BRAIN, WITHOUT [id number] 22:32:00Unlisted Reason for Exam - Click Yes and Enter Reason Below->NoFINAL REPORT Exam: MRI brain without contrast. Comparison: None. Clinical indication: Neuro deficit, acute, stroke suspected Technique: Multiplanar multi sequential MR imaging of the brain was performed without the administration of intravenous contrast. Findings:There are mild white matter microvascular ischemic changes.There is focal T2 hyperintense signal abnormality alongthe posterior falx with corresponding restricted diffusion, which may be due to an underlying lesionmeasuring up to 8 mm.There is no mass effect, extra-axial collection, hydrocephalus or herniation. There is no restricted diffusion to suggest an acute infarct. There is no abnormality on susceptibility sequences to suggest hemorrhage or hemosiderin deposition. The skull base flow-voids are seen in keeping with their patency. There is mild paranasal sinus mucosal thickening. There is complete opaci fication of the left frontal sinus by mucosal disease. The mastoid air cells are clear. The orbits,sella and parasellar regions are unremarkable. The craniocervical junction is normal. Impression:Mild white matter microvascular ischemic changes.No acute infarct, hemorrhage or mass effect.Focal T2 hyperintense signal abnormality along the posterior falx with corresponding restricted diffusion, which may be due to an underlying dural lesion. A noncontrast chest CT contrast-enhanced MRI would be helpful for further evaluation. Signed: Etienne Mancia MDReport Verified Date/Time: 04/05/2020 22:32:21 MR brain without IV [id number] 22:32:00Interface, External Ris In - 04/05/2020 10:35 PM CDTFINAL REPORT Exam: MRI brain without contrast. Comparison: None. Clinical indication: Neuro deficit, acute, stroke suspected Technique: Multiplanar multi sequential MR imaging of the brain was performed without the administration of intravenous contrast. Findings:There are mild white matter microvascular ischemic changes.There is focal T2 hyperintense signal abnormality along the posterior falx with corresponding restricteddiffusion, which may be due to an underlying lesion measuring up to 8 mm.There is no mass effect, extra-axial collection, hydrocephalus or herniation. There is no restricted diffusion to suggest an acu te infarct. There is no abnormality on susceptibility sequences to suggest hemorrhage or hemosiderindeposition. The skull base flow-voids are seen in keeping with their patency. There is mild paranasal sinus mucosal thickening. There is complete opacification of the left frontal sinus by mucosal disease. The mastoid air cells are clear. The orbits, sella and parasellar regions are unremarkable.The craniocervical junction is normal. Impression:Mild white matter microvascular ischemic changes.No acute infarct, hemorrhage or mass effect.Focal T2 hyperintense signal abnormality along the posterior falx with corresponding restricted diffusion, which may be due to an underlying dural lesion. A noncontrast chest CT contrast-enhanced MRI would be helpful for further evaluation. Signed: Etienne Manciaort Verified Date/Time: 04/05/2020 22:32:21 [facility] 2020-04-05 22:26:00Reason for exam:->Ischemic Stroke EvaluationFINAL REPORT MRA head and neck without contrast. CLINICAL HISTORY: Stroke, follow up. Ischemic stroke evaluation. COMPARISON: None. TECHNIQUE: Two- and three-dimensional [id number] MRA images of the intra- and extracranial carotid and vertebral arterial circulations were obtained, from which maximal intensity projection 3-D reconstructions were created. FINDINGS: MRA neck:There is no vessel occlusion or NASCET-quantifiable stenosis in the extracranial carotid or vertebral arterial circulations. Flow is antegrade in both vertebral arteries. MRA [place]: There isno vessel occlusion, flow-limiting stenosis, or aneurysm in the intracranial carotid or vertebrobasilar arterial circulations. IMPRESSION: Negative intra- and extracranial MRAs. Signed: Etienne Manciaort Verified Date/Time: 04/05/2020 22:26:03 MR, MRA, NECK, WITHOUT IV [id number] 22:26:00Reason for exam:->Ischemic Stroke Evaluation FINAL REPORT MRA head and neck without contrast. CLINICAL HISTORY: Stroke, follow up. Ischemic stroke evaluation. COMPARISON: None. TECHNIQUE: Two- and three-dimensional bnwt-oq-qogpxj MRA images of the intra- and extracranial carotid and vertebral arterial circulations were obt ained, from which maximal intensity projection 3-D reconstructions were created. FINDINGS: MRA neck:There is no vessel occlusion or NASCET-quantifiable stenosis in the extracranial carotid or vertebral arterial circulations. Flow is antegrade in both vertebral arteries. MRA [place]: There isno vessel occlusion, flow-limiting stenosis, or aneurysm in the intracranial carotid or vertebrobasilar arterial circulations. IMPRESSION: Negative intra- and extracranial MRAs. Signed: Etienne Mancia Verified Date/Time: 04/05/2020 22:26:03 MRA head without IV [id number] 22:26:00Interface, External Ris In - 04/05/2020 10:28 PM CDTFINAL REPORT MRA head and neck without contrast. CLINICAL HISTORY: Stroke, follow up. Ischemic stroke evaluation. COMPARISON:None. TECHNIQUE: Two- and three- dimensional egch-fu-nwkfbb MRA images of the intra- and extracranialcarotid and vertebral arterial circulations were obtained, from which maximal intensity projection 3-D reconstructions were created. FINDINGS: MRA neck: There is no vessel occlusion or NASCET-quantifiable stenosis in the extracranial carotid or vertebral arterial circulations. Flow is antegrade in both vertebral arteries. MRA [place]: There is no vessel occlusion, flow-limiting stenosis, or a neurysm in the intracranial carotid or vertebrobasilar arterial circulations. IMPRESSION: Negative intra- and extracranial MRAs. Signed: Etienne Mancia Verified Date/Time: 04/05/2020 22:26:03 [facility] [id number] 22:26:00Interface, External Ris In - 04/05/2020 10:28 PM CDTFINAL REPORT MRA head and neck without contrast. CLINICAL HISTORY: Stroke, follow up. Ischemic stroke evaluation. COMPARISON:None. TECHNIQUE: Two- and three-dimensional mxdx-rb-tgbmkb MRA images of the intra- and extracranialcarotid and vertebral arterial circulations were obtained, from which maximal intensity projection 3-D reconstructions were created. FINDINGS: MRA neck: There is no vessel occlusion or NASCET-quantifiable stenosis in the extracranial carotid or vertebral arterial circulations. Flow is antegrade in both vertebral arteries. MRA [place]: There is no vessel occlusion, flow-limiting stenosis, or aneurysm in the intracranial carotid or vertebrobasilar arterial circulations. IMPRESSION: Negative intra- and extracranial MRAs. Signed: Etienne Mancia MDReport Verified Date/Time: 04/05/2020 22:26:03 [facility] 2020-04-05 11:32:00 Test Item Value Reference Range Interpretation Comments Hemoglobin A1C (test code = 4548-4) 5.5 % 4.3-6.1 Lab Interpretation (test code = Normal 34272-9) [facility] [id number] 11:32:00 Test Item Value Reference Range Interpretation Comments HEMOGLOBIN A1C (BEAKER) (test code = 5.5 % 4.3-6.1 368) 2D Echo W/O Doppler(No Doppler)2020-04-05 10:44:07Ejection FractionSLEH ECHO HEARTLAB MKCKESSON CPACSInterface, External Ris In - 04/05/2020 10:44 AM C DTTransthoracic Echocardiography Report (TTE) Demographics Patient Name AMADOU MARCELINO ERASMO Dateof Study 04/05/2020 Gender Male Visit Number [id number] Race Unknown Accession Number [id number] Room Number 6108 Date of 1940 Referring Physician Age 79 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 The left ventricle is chamber size (by vol index) is normal with no evidence of LV hypertrophy. LVEF by Shelton's method of disk assessment is normal (>60%) . Grade 1 diastolic dysfunction (impaired relaxation and low-normal LA pressure). 2. Mild right ventricular dilation with normal systolic function. 3. LA size is mildly enlarged . 4. IV saline con trast injection was negative for a PFO (patent foramen ovale) at rest and post Valsalva . 5. No significant valvular abnormality. 6. Estimated peak systolic PA pressure is 25-30 mmHg (normal range) . Previous Study No prior studies available for comparison. Signature Findings Left Ventricle The left ventricle is chamber size (by vol index) is normal. No evidence of LV hypertrophy. All of the LV segments contract normally . LVEF by Shelton's method of disk assessment is normal (>60%) . Grade 1 diastolic dysfunction (impaired relaxation and low-normal LA pressure). Left Atrium LA size is mildly enlarged . Right Ventricle Mild right ventricular dilation with normalsystolic function. Right Atrium RA size is normal. Atrial Septum IV saline contrast injection was negative for a PFO (patent foramen ovale) at rest and post Valsalva . Aortic Valve Normal tri-leaflet Aortic Valve. Mitral Valve Normal MVstructure and function. Trace mitral regurgitation. Tricuspid Valve Normal TV structure and function by available views and Doppler. Estimated peak systolic PA pressure is 25-30 mmHg (normal range) . Pulmonic Valve Normal PV structure and function by limited views and Doppler. Aorta Aortic root size (SInus of Valsalva diameter) is normal . Pericardium No significant pericardial effusion is visualized. IVC/SVC/PA/PV/P leural The estimated RA pressure by IVC dynamics 0-5mmHg . Chambers/Structures Left Atrium LA Volume: 89.12 ml LA Area: 26.74 cm^2 LA Vol. Index: 40 ml/m^2 Left Ventricle LVIDd:4.51 cm LV Septum Diastolic: 0.98 cm LV PW Diastolic: 1.08 cm LVEDV Shelton's:159.53 ml LVESV Shelton's:55.01 ml LVEF Shelton's: 65.5 % LVEDVI: 71 ml/m^2 LVESVI: 24 ml/m^2 LVOT Diameter: 2.49 cm Right Atrium RA Area: 10.59 cm^2 Right Ventricle RV Diast Dim.: 4.61 cm TAPSE:2.51 cm Aorta Ao Root S of Lalitha.: 3.69 cm Doppler/Quantitative Measurements Mitral Valve MV Peak E-Wave: 0.74 m/s MV Peak A-Wave: 0.94 m/s E/A Ratio:0.78 Peak Gradient: 2.18 mmHg Deceleration Time: 329.7 msec MV Adilson. Peak: Tissue Doppler E' Septal Velocity: 0.06 m/s E/E': 11.16 E' Lateral Velocity: 0.07 m/s Aortic Valve Peak Velocity: 1.42 m/s Mean Velocity: 1.05 m/s Peak Gradient: 8.08 mmHg Mean Gradient: 4.74 mmHg AV Area (continuity): 3.93 cm^2 AV VTI: 31.38 cm AV DVI: 0.81 LVOT Peak Velocity: 1.1 m/s PeakGradient: 4.82 mmHg Mean Velocity: 0.82 m/s Mean Gradient: 2.89 mmHg LVOT Diameter: 2.49cm LVOT VTI: 25.36 cm LVOT Area: 4.87 cm^2 LVOT SV:123.43 ml Tricuspid Valve TR Velocity: 2.42 m/s TR Gradient: 23.45 mmHgCHI David Grant [facility] CenterRAD, CHEST, 1 VIEW, NON [id number] 07:30:00Reason for exam:->baselineShould this be performed at the bedside?->YesFINAL REPORT CLINICAL HISTORY: baseline TECHNIQUE: 1 view of the chest. COMPARISON: None IMPRESSION: There are no focal infiltrates or effusions. Incidental note is made of an azygos lobe. The cardiomediastinal silhouette is magnified by technique. The osseous structures appearintact. Signed: Lisa Mobley MDReusebio Verified Date/Time: 04/05/2020 07:30:03 Reading Location: [facility] Radiology Reading Room chest 1 view portable / [id number] 07:30:00Interface, External Ris In - 04/05/2020 7:33 AM CDTFINAL REPORT CLINICAL HISTORY: baseline TECHNIQUE: 1 view of the chest. COMPARISON: None IMPRESSION: There are no focal infiltrates or effusions. Incidental note is made of an azygos lobe. The cardiomediastinal silhouette is magnified by technique. The osseous structures appear intact. Signed: Lisa Mobley Verified Date/Time: 04/05/2020 07:30:03 Reading Location: [facility] Radiology Reading [facility] [id number] 07:17:00 Test Item Value Reference Range Interpretation Comments Protein, Total (test 6.9 See_Comment [Autom ated code = 2885-2) message] The system which generated this result transmit jon reference range : 6.0 - 8.3 gm/dL . The reference range was not u sed to interpret th is result as normal/abnormal . Albumin (test code = 4.0 g/dL 3.5-5 47494-0) Total Bilirubin (test 0.5 mg/dL 0.2-1.2 code = 1975-2) Bilirubin, Direct 0.2 mg/dL 0.1-0.5 (test code = 1968-7) Alkaline Phosphatase 79 U/L 40-150 (test code = 6768-6) AST (test code = 21 U/L 5-34 1920-8) ALT (test code = 15 U/L 6-55 1742-6) ADILENE (test code = ADILENE) Registered Nurse [facility] Transplant ID - DB Lab Interpretation Normal (test code = 81592-2) [facility]HEPAT[facility] FUNCTION [id number] 07:17:00 Test Item Value Reference Range Interpretation Comments TOTAL PROTEIN (BEAKER) (test code = 6.9 gm/dL 6.0-8.3 770) ALBUMIN (BEAKER) (test code = 1145) 4.0 g/dL 3.5-5.0 BILIRUBIN TOTAL (BEAKER) (test code 0.5 mg/dL 0.2-1.2 = 377) BILIRUBIN DIRECT (BEAKER) (test 0.2 mg/dL 0.1-0.5 code = 706) ALKALINE PHOSPHATASE (BEAKER) (test 79 U/L 40-150 code = 346) AST (SGOT) (BEAKER) (test code = 21 U/L 5-34 353) ALT (SGPT) (BEAKER) (test code = 15 U/L 6-55 347) Registered Nurse [facility] Transplant ID - DBFolate, [id number] 06:47:00 Test Item Value Reference Range Interpretation Comments Folate (test code = >40.00 See_Comment [Automa jon 1374-8) message] The system which generated this result transmit jon reference range : >=7.00 ng/mL. T he reference range was not used to interpret this result as normal/abnormal . ADILENE (test code = ADILENE) Registered Nurse [facility] Transplant ID - EDASI Lab Interpretation Normal (test code = 18689-5) [facility] HospitalFOLATE, [id number] 06:47:00 Test Item Value Reference Range Interpretation Comments FOLATE (BEAKER) (test code = 362) > ng/mL >=7.00 Registered Nurse [facility] Transplant ID - EDASIVitamin [id number] 05:50:00 Test Item Value Reference Range Interpretation Comments Vitamin B12 (test code = 620 pg/mL 078-695 7590-9) ADILENE (test code = ADILENE) Registered Nurse [facility] Transplant ID - EDASI Lab Interpretation (test Normal code = 09456-3) [facility] HospitalTSH/Free T4 If [id number] 05:50:00 Test Item Value Reference Range Interpretation Comments TSH (test code = 0.513 See_Comment [Automated 89083-0) message] The system which generated this result transmit jon reference range : 0.350 - 4.940 uIU/mL. The reference range was not used to interpret this result as normal/abnormal . ADILENE (test code = ADILENE) Registered Nurse [facility] Transplant ID - EDASI Lab Interpretation Normal (test code = 72149-6) [facility] HospitalVITAMIN [id number] 05:50:00 Test Item Value Reference Range Interpretation Comments VITAMIN B12 (BEAKER) (test code = 620 pg/mL 213-816 774) Registered Nurse [facility] Transplant ID - SHIKHATSH/FREE T4 IF [id number] 05:50:00 Test Item Value Reference Range Interpretation Comments THYROID STIMULATING HORMONE 0.513 uIU/mL 0.350-4.940 (BEAKER) (test code = 772) Registered Nurse [facility] Mar[facility] Transplant ID - KARENSARANIN [id number] 04:27:00 Test Item Value Reference Range Interpretation Comments TROPONIN I (BEAKER) (test code = 0.04 ng/mL 0.00-0.03 H 397) Troponin I (TnI) levels must be interpreted in the context of the presenting symptoms and the clinical findings. Elevated TnI levels indicate myocardial damage, but are not specific for ischemic heart disease. Elevated TnI levels are seen in patients with other cardiac conditions (including myocarditis and congestive heart failure), and slight TnI elevations occur in patients with other conditions, including sepsis, renal failure, acidosis, acute neurological disease, and persistent tachyarrhythmia.Registered Nurse [facility] Transplant ID - SHIKHAFasting lipid panel 2020-04-05 04:24:00 Test Item Value Reference Range Interpretation Comments Triglycerides (test 117 mg/dL code = 2571-8) Cholesterol (test code 130 mg/dL = 2093-3) HDL (test code = 37 mg/dL 2085-9) LDL Calculated (test 70 mg/dL code = 88061-8) ADILENE (test code = ADILENE) Triglyceride Reference Range: Low Risk <150 Borderline 150-199 High Risk 200-499 Very High Risk >=500 Cholesterol Reference Range: Low Risk <200 Borderline 200-239 High Risk >240 HDL Cholesterol Reference Range: Low Risk >=60 High Risk <40 LDL Cholesterol Reference Range: Optimal <100 Near Optimal 100-129 Borderline 130-159 High 160-189 Very High >=190 Registered Nurse [facility] Transplant ID - SHIKHA [facility] HospitalLIPID [id number] 04:24:00 Test Item Value Reference Range Interpretation Comments TRIGLYCERIDES (BEAKER) (test code = 117 mg/dL 540) CHOLESTEROL (BEAKER) (test code = 130 mg/dL 631) HDL CHOLESTEROL (BEAKER) (test code 37 mg/dL = 976) LDL CHOLESTEROL CALCULATED (BEAKER) 70 mg/dL (test code = 633) Triglyceride Reference Range: Low Risk <150 Borderline 150-199 High Risk 200-499 Very High Risk >=500Cholesterol Reference Range: Low Risk <200 Borderline 200-239 High Risk >240HDL Cholesterol Reference Range: Low Risk >=60 High Risk <40LDL Cholesterol Reference Range: Optimal <100 Near Optimal 100-129 Borderline 130-159 High 160-189 Very High >=190 Registered Nurse [facility] Transplant ID - EDASIBASIC METABOLIC [id number] 04:24:00 Test Item Value Reference Range Interpretation Comments SODIUM (BEAKER) 143 meq/L 136-145 (test code = 381) POTASSIUM (BEAKER) 3.6 meq/L 3.5-5.1 (test code = 379) CHLORIDE (BEAKER) 110 meq/L 98-107 H (test code = 382) CO2 (BEAKER) (test 24 meq/L 22-29 code = 355) BLOOD UREA NITROGEN 24 mg/dL 7-21 H (BEAKER) (test code = 354) CREATININE (BEAKER) 1.50 mg/dL 0.57-1.25 H (test code = 358) GLUCOSE RANDOM 79 mg/dL 70-105 (BEAKER) (test code = 652) CALCIUM (BEAKER) 9.1 mg/dL 8.4-10.2 (test code = 697) EGFR (BEAKER) (test 45 mL/min/1.73 ESTIMA JON GFR IS code = 1092) sq m NOT ACCURATE CREATININE CLEARANCE IN PREDICTING GLOMERULAR FILTRATION RATE . ESTIMATED GFR I S NOT APPLICABLE FOR DIALYSIS PATIEN TS. Registered Nurse [facility] Marrow Transplant ID - [id number] 04:12:00 Test Item Value Reference Range Interpretation Comments PTT (test code = 15108-7) 30.4 See_Comment [ Automated message] The system [employer] generated this result transmitted ref erence range: 22.5 - 3 6.0 seconds. The re ference range was not u sed to interpret this result as normal/abnor mal. Lab Interpretation (test Normal code = 31181-0) [facility] HospitalAPTT2020-08-[facility] 04:12:00 Test Item Value Reference Range Interpretation Comments PARTIAL THROMBOPLASTIN TIME 30.4 seconds 22.5-36.0 (BEAKER) (test code = 760) Prothrombin time/[id number] 04:11:00 Test Item Value Reference Interpretation Comments Range Protime (test code = 18.0 See_Comment H [Autom ated 5902-2) message] The system which generated this result transmitted reference range : 11.9 - 14.2 seconds. The reference range was not used to interpret this result as normal/abnormal . INR (test code = 1.53 See_Comment [Automated 6301-6) message] The system which generated this result transmitted reference range : <=5.90. The reference range was not used to interpret this result as normal/abnormal . ADILENE (test code = Effective 01/14/2019: ADILENE) PT Reference Range ChangeNew: 11.9-14.2 Previous: 11.7-14.7 RECOMMENDED COUMADIN/WARFARIN INR THERAPY RANGESSTANDARD DOSE: 2.0-3.0 Includes: PROPHYLAXIS for venous thrombosis, systemic embolization; TREATMENT for venous thrombosis and/or pulmonary embolus.HIGH RISK: Target INR is 2.5-3.5 for patients wiht mechanical heart valves. Lab Interpretation Abnormal (test code = 24657-3) [facility] HospitalPROTHROMBIN TIME/[id number] 04:11:00 Test Item Value Reference Range Interpretation Comments PROTIME (BEAKER) (test code = 18.0 seconds 11.9-14.2 H 759) INR (BEAKER) (test code = 370) 1.53 <=5.90 Effective 01/14/2019: PT Reference Range ChangeNew: 11.9-14.2 Previous: 11.7- 14.7RECOMMENDED COUMADIN/WARFARIN INR THERAPY RANGESSTANDARD DOSE: 2.0-3.0 Includes: PROPHYLAXIS for venous thrombosis, systemic embolization; TREATMENT for venous thrombosis and/or pulmonary embolus.HIGH RISK: Target INR is2.5-3.5 for patients wiht mechanical heart valves.CBC with platelet count + automated [id number] 04:07:00 Test Item Value Reference Range Interpretation Comments WBC (test code = 6690-2) 8.1 See_Comment [A utomated message] The system [employer]azar[employer] generated this result transmitted ref erence range: 3.5 - 10 .5 K/L. The refe rence range was not u sed to interpret this result as normal/abnor mal. RBC (test code = 789-8) 4.12 See_Comment L [Au tomated message] The system [employer]azar[employer] generated this result transmitted ref erence range: 4.63 - 6 .08 M/L. The refe rence range was not u sed to interpret this result as normal/abnor mal. MCHC (test code = 786-4) 31.5 See_Comment L [A utomated message] The system [employer] generated this result transmitted ref erence range: 32.3 - 3 6.5 GM/DL. The refe rence range was not u sed to interpret this result as normal/abnor mal. Hematocrit (test code = 37.5 % 40.1-51 L 4544-3) MCV (test code = 787-2) 91.0 fL 79-92.2 MCH (test code = 785-6) 28.6 pg 25.7-32.2 RDW (test code = 788-0) 13.7 % 11.6-14.4 Platelets (test code = 201 See_Comment [Aut omated message] 777-3) The system [employer] generated this result transmitted ref erence range: 150 - 45 0 K/CU MM. The referen ce range was not u sed to interpret this result as normal/abnor mal. MPV (test code = 10.1 fL 9.4-12.4 76662-4) nRBC (test code = 413) 0 See_Comment [Aut omated message] The system [employer] generated this result transmitted ref erence range: 0 - 0 /1 00 WBC. The refere nce range was not u sed to interpret this result as normal/abnor mal. % Neutros (test code = 64 % 429) % Lymphs (test code = 21 % 430) % Monos (test code = 10 % 431) % Eos (test code = 432) 4 % % Baso (test code = 437) 1 % # Neutros (test code = 5.17 See_Comment [Aut omated message] 670) The system [employer]azar[employer] generated this result transmitted ref erence range: 1.78 - 5 .38 K/L. The refe rence range was not u sed to interpret this result as normal/abnor mal. # Lymphs (test code = 1.73 See_Comment [Auto mated message] 414) The system [employer] generated this result transmitted ref erence range: 1.32 - 3 .57 K/L. The refe rence range was not u sed to interpret this result as normal/abnor mal. # Monos (test code = 0.80 See_Comment [Autom ated message] 415) The system [employer]azar[employer] generated this result transmitted ref erence range: 0.30 - 0 .82 K/L. The refe rence range was not u sed to interpret this result as normal/abnor mal. # Eos (test code = 416) 0.33 See_Comment [Au tomated message] The system [employer] generated this result transmitted ref erence range: 0.04 - 0 .54 K/L. The refe rence range was not u sed to interpret this result as normal/abnor mal. # Baso (test code = 417) 0.04 See_Comment [A utomated message] The system [employer]azar[employer] generated this result transmitted ref erence range: 0.01 - 0 .08 K/L. The refe rence range was not u sed to interpret this result as normal/abnor mal. Immature 0 % 0-1 Granulocytes-Relative (test code = 2801) Lab Interpretation (test Abnormal code = 51881-7) [facility] W/PLT COUNT & AUTO [id number] 04:07:00 Test Item Value Reference Range Interpretation Comments WHITE BLOOD CELL COUNT (BEAKER) 8.1 K/ L 3.5-10.5 (test code = 775) RED BLOOD CELL COUNT (BEAKER) 4.12 M/ L 4.63-6.08 L (test code = 761) HEMOGLOBIN (BEAKER) (test code = 11.8 GM/DL 13.7-17.5 L 410) HEMATOCRIT (BEAKER) (test code = 37.5 % 40.1-51.0 L 411) MEAN CORPUSCULAR VOLUME (BEAKER) 91.0 fL 79.0-92.2 (test code = 753) MEAN CORPUSCULAR HEMOGLOBIN 28.6 pg 25.7-32.2 (BEAKER) (test code = 751) MEAN CORPUSCULAR HEMOGLOBIN CONC 31.5 GM/DL 32.3-36.5 L (BEAKER) (test code = 752) RED CELL DISTRIBUTION WIDTH 13.7 % 11.6-14.4 (BEAKER) (test code = 412) PLATELET COUNT (BEAKER) (test 201 K/CU MM 150-450 code = 756) MEAN PLATELET VOLUME (BEAKER) 10.1 fL 9.4-12.4 (test code = 754) NUCLEATED RED BLOOD CELLS 0 /100 WBC 0-0 (BEAKER) (test code = 413) NEUTROPHILS RELATIVE PERCENT 64 % (BEAKER) (test code = 429) LYMPHOCYTES RELATIVE PERCENT 21 % (BEAKER) (test code = 430) MONOCYTES RELATIVE PERCENT 10 % (BEAKER) (test code = 431) EOSINOPHILS RELATIVE PERCENT 4 % (BEAKER) (test code = 432) BASOPHILS RELATIVE PERCENT 1 % (BEAKER) (test code = 437) NEUTROPHILS ABSOLUTE COUNT 5.17 K/ L 1.78-5.38 (BEAKER) (test code = 670) LYMPHOCYTES ABSOLUTE COUNT 1.73 K/ L 1.32-3.57 (BEAKER) (test code = 414) MONOCYTES ABSOLUTE COUNT (BEAKER) 0.80 K/ L 0.30-0.82 (test code = 415) EOSINOPHILS ABSOLUTE COUNT 0.33 K/ L 0.04-0.54 (BEAKER) (test code = 416) BASOPHILS ABSOLUTE COUNT (BEAKER) 0.04 K/ L 0.01-0.08 (test code = 417) IMMATURE GRANULOCYTES-RELATIVE 0 % 0-1 PERCENT (BEAKER) (test code = 2801) [id number] 07:24:00 Test Item Value Reference Range Interpretation Comments ACT-ISTAT (test code = ACTI) 208 SEC 74-137 H BASIC METABOLIC [id number] 08:47:00 Test Item Value Reference Range Interpretation [...] 8.7 MG/DL 8.4-10.2 N CA) CBC W/AUTO [id number] 08:17:00 Test Item Value Reference Range Interpretation [...] 0.00 K/mm3 0.0-0.1 N NRBC#) BASIC METABOLIC [id number] 06:47:00 Test Item Value Reference Range Interpretation [...] 0-189 mg/dL VERY HIGH...... ...>/= 190 mg/dL [id number] 06:47:00 Test Item Value Reference Range Interpretation Comments MAGNESIUM (test code = MAG) 1.9 MG/DL 1.6-2.3 N PROTHROMBIN [id number] 06:44:00 Test Item Value Reference Range Interpretation [...] syste payal embolism. 3.0 - 4.5 PTT [id number] 06:44:00 Test Item Value Reference Range Interpretation Comments PTT ACTIVATED (test code = APTT) 33.7 SECONDS 25.1-36.5 N BASIC METABOLIC [id number] 06:36:00 Test Item Value Reference Range Interpretation [...] LDL (test MG/DL 0-99 code = LDL) [id number] 06:36:00 Test Item Value Reference Range Interpretation Comments MAGNESIUM (test code = MAG) 1.9 MG/DL 1.6-2.3 N BASIC METABOLIC [id number] 06:35:00 Test Item Value Reference Range Interpretation [...] LDL (test MG/DL 0-99 code = LDL) [id number] 06:35:00 Test Item Value Reference Range Interpretation Comments MAGNESIUM (test code = MAG) 1.9 MG/DL 1.6-2.3 N BASIC METABOLIC [id number] 06:34:00 Test Item Value Reference Range Interpretation [...] LDL (test code = LDL) MG/DL 0-99 [id number] 06:34:00 Test Item Value Reference Range Interpretation Comments MAGNESIUM (test code = MAG) MG/DL 1.6-2.3 BASIC METABOLIC [id number] 06:32:00 Test Item Value Reference Range Interpretation [...] LDL (test code = LDL) MG/DL 0-99 [id number] 06:32:00 Test Item Value Reference Range Interpretation Comments MAGNESIUM (test code = MAG) MG/DL 1.6-2.3 CBC W/AUTO [id number] 06:20:00 Test Item Value Reference Range Interpretation [...] K/mm3 0.0-0.1 N NRBC#) Coronavirus 2018 nCoV [id number] 18:32:00 Test Item Value Reference Range Interpretation Comments Coronavirus 2019 nCoV Negative NEGATIVE Per michelle tiwari, Bedside (test code = negativ e results [...]
--- NOTE | 2020-10-15 09:27 | RAD REPORT ---
EXAM DESCRIPTION: CT - [id number] - 10/15/2020 9:06 am CLINICAL HISTORY: Trauma, head and neck injury. PAIN COMPARISON: <Comparisons> TECHNIQUE: Axial 5 mm thick images of the head were obtained. Axial 2 mm thick images of the cervical spine were obtained with sagittal and coronal reconstruction images generated and reviewed. All CT scans are performed using dose optimization technique as appropriate and may include automated exposure control or mA/KV adjustment according to patient size. FINDINGS: CT HEAD WITHOUT CONTRAST: No acute hemorrhage, hydrocephalus or extra-axial collection is identified.Mild generalized brain atr ophy is present with mild periventricular and deep white matter chronic microvascular ischemic change s.No areas of brain edema or midline shift. The paranasal sinuses and mastoids are clear.The calvarium is intact. Heavy vertebral atherosclerosis . CT CERVICAL SPINE WITHOUT CONTRAST: No fracture or subluxation.Mild lower cervical degenerative changes.No prevertebral soft tissues swel ling is identified. IMPRESSION: No acute intracranial or cervical spine findings.
--- NOTE | 2020-10-15 10:11 | ER ---
Nurse's Notes [facility] Name: Jp Sun Age: 79 yrs Sex: Male : 1940 Arrival Date: 10/15/2020 Time: 08:24 Bed 19 Private MD: Diagnosis: Superficial injury of head;Fall due to bumping against object Presentation: 10/15 08:35 Chief complaint: Patient states: Rolled out of bed this morning and hit head on bedside ss table. Small laceration noted to side of head. Pt denies dizziness and/or nausea. Care prior to arrival: None. Mechanism of Injury: Fall from standing position. Trauma event details: Injury occurred in the [facility], Injury occurred: at home. Injury occurred: October 15, 2020. 08:35 Acuity: FRANCISCO 4 ss 08:35 Method Of Arrival: Ambulatory ss 08:35 Coronavirus screen: Client denies travel out of the [place] in the last 14 days. Ebola ss Screen: Patient denies exposure to infectious person. Patient denies travel to an Ebola-affected area in the 21 days before illness onset. Initial Sepsis Screen: Does the patient meet any 2 criteria? No. Patient's initial sepsis screen is negative. Does the patient have a suspected source of infection? No. Patient's initial sepsis screen is negative. Risk Assessment: Do you want to hurt yourself or someone else? Patient reports no desire to harm self or others. Onset of symptoms was October 15, 2020. Trauma Activation: Not Applicable Physician: ED Physician; Name: ; Notified At: ; Arrived At: Physician: General Surgeon; Name: ; Notified At: ; Arrived At: Physician: Radiology; Name: ; Notified At: ; Arrived At: Physician: Respiratory; Name: ; Notified At: ; Arrived At: Physician: Lab; Name: ; Notified At: ; Arrived At: Historical: - Allergies: 08:44 No Known Allergies; ss - Home Meds: 08:44 amlodipine 10 mg tab 1 tab once daily [Active]; aspirin 325 mg Oral TbEC 1 tab once ss daily [Active]; bupropion HCl 300 mg Oral Tb24 1 tab once daily [Active]; carvedilol 25 mg Oral tab 1 tab daily [Active]; gabapentin 400 mg Oral cap 1 cap daily [Active]; losartan 50 mg Oral tab 1 tab once daily [Active]; Myrbetriq 50 mg Oral Tb24 1 tab once daily [Active]; pantoprazole 40 mg Oral TbEC 1 tab once daily [Active]; pravastatin 40 mg Oral tab 1 tab once daily [Active]; - PMHx: 08:44 Hypertension; TIA; ss - PSHx: 08:44 None; ss - Immunization history:: Adult Immunizations up to date, Last tetanus immunization: up to date. - Social history:: Smoking status: Patient denies any tobacco usage or history of. - Family history:: not pertinent. Screenin:35 Abuse screen: Denies threats or abuse. Denies injuries from another. Tuberculosis ss screening: Never had TB. 08:35 Nutritional screening: No deficits noted. Fall Risk Fall in past 12 months (25 points). dm14 Primary Survey: 08:35 NO uncontrolled hemorrhage observed. A: The patient is alert. Airway: patent, No ss supplemental oxygen in use on arrival. Trachea midline. Breathing/Chest: Respiratory pattern: regular, Respiratory effort: Breath sounds: clear, bilaterally. Circulation: Pulses: palpable right radial artery and left radial artery. Skin color: pink. Disability Alert. Exposure/Environment: There is no evidence of uncontrolled external bleeding. 10:36 Reassessment Breathing/Chest Respiratory pattern Regular Respiratory effort Spontaneous.dm14 Assessment: 08:35 General: Appears in no apparent distress. comfortable, well groomed, Behavior is calm, dm14 cooperative, appropriate for age. Pain: Complains of pain in Pain to Rt side of head due to fall Pain does not radiate. Pain currently is 3 out of 10 on a pain scale. Neuro: No deficits noted. Derm: Wound noted Abrasion to right side of head behind the ear. 10:00 Reassessment: No changes from previously documented assessment. dm14 Vital Signs: 08:35 BP 158 / 84; Pulse 57; Resp 16; Temp 97.6(TE); Pulse Ox 96% on R/A; Weight 99.79 kg; Height 5 ft. 11 in. (180.34 cm); Pain 2/10; 09:42 BP 113 / 52; Pulse 87; Resp 18; Pulse Ox 98% ; dm14 08:35 Body Mass Index 30.68 (99.79 kg, 180.34 cm) Gunjan Coma Score: 08:35 Eye Response: spontaneous(4). Verbal Response: oriented(5). Motor Response: obeys ss commands(6). Total: 15. Trauma Score (Adult): 08:35 Eye Response: spontaneous(1); Verbal Response: oriented(1); Motor Response: obeys ss commands(2); Systolic BP: > 89 mm Hg(4); Respiratory Rate: 10 to 29 per min(4); Gunjan Score: 15; Trauma Score: 12 ED Course: 08:24 Patient arrived in ED. mr 08:27 Israel Frias MD is Attending Physician. shannon 08:28 Rabia Viveros, DASH is Primary Nurse. dm14 08:35 Patient has correct armband on for positive identification. Bed in low position. ss 08:35 Patient maintains SpO2 saturation greater than 95% on room air. ss 08:38 Triage completed. ss 08:44 Arm band placed on right wrist. ss 09:06 CT Head C Spine In Process Unspecified. EDMS 10:00 No provider procedures requiring assistance completed. Patient did not have IV access dm14 during this emergency room visit. 10:38 Thermoregulation: none required. dm14 Administered Medications: No medications were administered Intake: 10:36 PO: 0ml; Total: 0ml. dm14 Output: 10:36 Urine: 0ml; Total: 0ml. dm14 Outcome: 10:00 Discharged to home ambulatory. dm14 10:00 Condition: stable 10:00 Discharge instructions given to patient, Instructed on discharge instructions, follow up and referral plans. Demonstrated understanding of instructions, follow-up care. 10:10 Discharge ordered by . [facility] 10:36 Patient's length of stay was not longer than 2 hours. dm14 10:39 Patient left the ED. dm14 Signatures: Dispatcher [employer] EDPA Israel Frias MD MD cha Rivera, Mary mr Smirch, Shelby, DASH RN Rabia Viveros, DASH RN dm14 Corrections: (The following items were deleted from the chart) 09:21 09:08 BP 158 / 84; Pulse 107bpm; Resp 18bpm; Pulse Ox 96%; Temp 98.2F; dm14 dm14 09:21 09:08 General: Appears in no apparent distress. comfortable, well groomed, Behavior is dm14 calm, cooperative, appropriate for age, dm14 09:21 09:08 Pain: Complains of pain in Pain to Rt side of head due to fall Pain does not dm14 radiate. Pain currently is 3 out of 10 on a pain scale. 4 :08 Neuro: No deficits noted. dm14 4 09:08 Derm: Wound noted Abrasion to right side of head behind the ear dm14 4
--- NOTE | 2020-10-15 10:11 | EDPHYS ---
Physician Documentation [facility] Name: Jp Sun Age: 79 yrs Sex: Male : 1940 Arrival Date: 10/15/2020 Time: 08:24 Bed 19 Private MD: ED Physician Israel Frias HPI: 10/15 10:05 This 79 yrs old Male presents to ER via Ambulatory with complaints of Fall shannon Injury, Head Injury-Adult. 10:05 Details of fall: The patient fell from an upright position, while walking. Onset: The shannon symptoms/episode began/occurred just prior to arrival, this morning. Associated injuries: The patient sustained injury to the head, neck injury. Severity of symptoms: At their worst the symptoms were mild, in the emergency department the symptoms are unchanged. The patient has not experienced similar symptoms in the past. Historical: - Allergies: 08:44 No Known Allergies; ss - Home Meds: 08:44 amlodipine 10 mg tab 1 tab once daily [Active]; aspirin 325 mg Oral TbEC 1 tab once ss daily [Active]; bupropion HCl 300 mg Oral Tb24 1 tab once daily [Active]; carvedilol 25 mg Oral tab 1 tab daily [Active]; gabapentin 400 mg Oral cap 1 cap daily [Active]; losartan 50 mg Oral tab 1 tab once daily [Active]; Myrbetriq 50 mg Oral Tb24 1 tab once daily [Active]; pantoprazole 40 mg Oral TbEC 1 tab once daily [Active]; pravastatin 40 mg Oral tab 1 tab once daily [Active]; - PMHx: 08:44 Hypertension; TIA; ss - PSHx: 08:44 None; ss - Immunization history:: Adult Immunizations up to date, Last tetanus immunization: up to date. - Social history:: Smoking status: Patient denies any tobacco usage or history of. - Family history:: not pertinent. ROS: 10:05 Constitutional: Negative for fever, chills, and weight loss, Eyes: Negative for injury, shannon pain, redness, and discharge, ENT: Negative for injury, pain, and discharge, Neck: Negative for injury, pain, and swelling, Cardiovascular: Negative for chest pain, palpitations, and edema, Respiratory: Negative for shortness of breath, cough, wheezing, and pleuritic chest pain, Abdomen/GI: Negative for abdominal pain, nausea, vomiting, diarrhea, and constipation, Back: Negative for injury and pain, : Negative for injury, bleeding, discharge, and swelling, MS/Extremity: Negative for injury and deformity, Skin: Negative for injury, rash, and discoloration, Psych: Negative for depression, anxiety, suicide ideation, homicidal ideation, and hallucinations, Allergy/Immunology: Negative for hives, rash, and allergies, Endocrine: Negative for neck swelling, polydipsia, polyuria, polyphagia, and marked weight changes, Hematologic/Lymphatic: Negative for swollen nodes, abnormal bleeding, and unusual bruising. 10:05 Neuro: Positive for headache. Exam: 10:05 Constitutional: This is a well developed, well nourished patient who is awake, alert, shannon and in no acute distress. Eyes: Pupils equal round and reactive to light, extra-ocular motions intact. Lids and lashes normal. Conjunctiva and sclera are non-icteric and not injected. Cornea within normal limits. Periorbital areas with no swelling, redness, or edema. ENT: Nares patent. No nasal discharge, no septal abnormalities noted. Tympanic membranes are normal and external auditory canals are clear. Oropharynx with no redness, swelling, or masses, exudates, or evidence of obstruction, uvula midline. Mucous membranes moist. Neck: Trachea midline, no thyromegaly or masses palpated, and no cervical lymphadenopathy. Supple, full range of motion without nuchal rigidity, or vertebral point tenderness. No Meningismus. Chest/axilla: Normal chest wall appearance and motion. Nontender with no deformity. No lesions are appreciated. Cardiovascular: Regular rate and rhythm with a normal S1 and S2. No gallops, murmurs, or rubs. Normal PMI, no JVD. No pulse deficits. Respiratory: Lungs have equal breath sounds bilaterally, clear to auscultation and percussion. No rales, rhonchi or wheezes noted. No increased work of breathing, no retractions or nasal flaring. Abdomen/GI: Soft, non-tender, with normal bowel sounds. No distension or tympany. No guarding or rebound. No evidence of tenderness throughout. Back: No spinal tenderness. No costovertebral tenderness. Full range of motion. Male : Normal genitalia with no discharge or lesions. Skin: Warm, dry with normal turgor. Normal color with no rashes, no lesions, and no evidence of cellulitis. MS/ Extremity: Pulses equal, no cyanosis. Neurovascular intact. Full, normal range of motion. Neuro: Awake and alert, GCS 15, oriented to person, place, time, and situation. Cranial nerves II-XII grossly intact. Motor strength 5/5 in all extremities. Sensory grossly intact. Cerebellar exam normal. Normal gait. Psych: Awake, alert, with orientation to person, place and time. Behavior, mood, and affect are within normal limits. 10:05 Head/face: Noted is abrasion(s), that are mild, contusion, hematoma. Vital Signs: 08:35 BP 158 / 84; Pulse 57; Resp 16; Temp 97.6(TE); Pulse Ox 96% on R/A; Weight 99.79 kg; ss Height 5 ft. 11 in. (180.34 cm); Pain 2/10; 09:42 BP 113 / 52; Pulse 87; Resp 18; Pulse Ox 98% ; dm14 08:35 Body Mass Index 30.68 (99.79 kg, 180.34 cm) ss Maxwell Coma Score: 08:35 Eye Response: spontaneous(4). Verbal Response: oriented(5). Motor Response: obeys commands(6). Total: 15. Trauma Score (Adult): 08:35 Eye Response: spontaneous(1); Verbal Response: oriented(1); Motor Response: obeys ss commands(2); Systolic BP: > 89 mm Hg(4); Respiratory Rate: 10 to 29 per min(4); Gunjan Score: 15; Trauma Score: 12 MDM: 08:28 Patient medically screened. [facility] 10:08 Differential diagnosis: abrasion, closed head injury, contusion, laceration, multiple shannon trauma, sprain, strain. Data reviewed: vital signs, nurses notes, radiologic studies, CT scan. Data interpreted: vehicle monitor technician: not applicable for this patient encounter. Pulse oximetry: on room air is 98 %. Counseling: I had a detailed discussion with the patient and/or guardian regarding: the historical points, exam findings, and any diagnostic results supporting the discharge/admit diagnosis, radiology results, the need for outpatient follow up, for definitive care, a family practitioner. 10/15 08:27 Order name: CT Head C Spine; Complete Time: 10:03 [facility] 10/15 10:11 Order name: Wound Care; Complete Time: [facility] 10/15 10:11 Order name: Ice pack; Complete Time: [facility] MDM: 10/15 08:27 Order name: CT Head C Spine; Complete Time: 10: [facility] 10/15 10:11 Order name: Wound Care; Complete Time: [facility] 10/15 10:11 Order name: Ice pack; Complete Time: : [facility] Administered Medications: No medications were administered Disposition: 10/15/20 10:10 Discharged to Home. Impression: Superficial injury of head, Fall due to bumping against object. - Condition is Fair. - Discharge Instructions: Head Injury, Adult, Fall Prevention in the Home, [id number], Head Injury, Adult, [id number]. - Medication Reconciliation Form, Thank You Letter, Antibiotic Education, Prescription Opioid Use form. - Follow up: Private Physician; When: 2 - 3 days; Reason: Recheck today's complaints, Continuance of care, Re-evaluation by your physician. - Problem is new. - Symptoms have improved. Signatures: Dispatcher [employer] EDCT Israel Frias MD MD cha Smirch, Shelby, RN RN Rabia Viveros RN RN dm14 Corrections: (The following items were deleted from the chart) 10:39 10:10 10/15/2020 10:10 Discharged to Home. Impression: Superficial injury of head; Fall dm14 due to bumping against object. Condition is Fair. Forms are Medication Reconciliation Form, Thank You Letter, Antibiotic Education, Prescription Opioid Use. Follow up: Private Physician; When: 2 - 3 days; Reason: Recheck today's complaints, Continuance of care, Re-evaluation by your physician. Problem is new. Symptoms have improved. shannon
== END 2020-10-15 10:39 | disposition home or self-care (01) ==
LOC: ER 08:20
DX: S00.81XA Abrasion of other part of head, initial encounter (principal); W18.30XA Fall on same level, unspecified, initial encounter; Y93.01 Activity, walking, marching and hiking; Y92.9 Unspecified place or not applicable; I10 Essential (primary) hypertension; Z79.82 Long term (current) use of aspirin; Z86.73 Personal history of transient ischemic attack (TIA), and cerebral infarction without residual deficits
CPT/HCPCS: 70450; 72125; 99284

== ENCOUNTER 2021-04-22 19:01 | Emergency (ER) | payer OTHER ==
--- OUTSIDE RECORDS SUMMARY | 2021-04-22 19:04 | XMS REPORT | Continuity of Care Document ---
:1940 Author Organization [facility] t Address [address] [place] [address] Care Team Providers Name Role Phone Barber Coleman Attending Clinician [phone] MELY LEMON Attending Clinician Unavailable Lab, Fam Pob I Attending Clinician Unavailable MELY LEMON Admitting Clinician Unavailable Payers Payer Name Policy Type Policy Number Effective Date Expiration Date S ource Problems Condition Condition Condition Status Onset Resolution Last Treating Co mments Source Name Details Category Date Date Treatment Clinician Date Ischemic Ischemic Disease [facility] [address] Allergies, Adverse Reactions, Alerts Allergy Allergy Status Severity Reaction(s) Onset Inactive Treating Comm ents Source Name Type Date Date Clinician No Known DA Active [facility] 01-21 [place] 00:[facility]: [address] Social History Social Habit Start Date Stop Date Quantity Comments Source Sex Assigned At [facility] Medications Ordered Filled Start Stop Current Ordering Indication Dosage Frequency Signature Comments Components Source Medication Medication Date Date Medication? Clinician (SIG) Name Name aspirin 81 2019-2020- No 81mg QD Take [address] [facility] MG chewable 8-20 08-20 tablet (81 L [facility] - tablet 00:00: 23:59 mg total) Medic al 00 :00 by mouth Center daily. amLODIPine Yes 10mg QD Take [address] (NORVASC) 5 8-19 by mouth [facility] - MG tablet 15:01: daily. Medica l [address] [place] gabapentin 0 Yes 400mg QD Take [address] (NEURONTIN) 8-19 mg by [facility] - 400 MG 15:01: mouth Medical capsule 48 daily. [place] carvediloL Yes 25mg QD Take [address] (COREG) 25 8-19 by mouth [facility] - MG tablet 15:01: daily. Medica l [address] [place] buPROPion Yes 300mg QD Take [address] (WELLBUTRIN 8-19 mg by [facility] - XL) 300 MG 15:01: mouth Medica l 24 hr 48 daily. Center tablet sertraline Yes 125mg QD Take [address] (ZOLOFT) 8-19 mg by [facility] - 100 MG 15:01: mouth Medical tablet 48 daily. [place] pantoprazol Yes 40mg QD Take [address] [facility] e 8-19 by mouth [facility] - (PROTONIX) 15:01: daily. Medic al 40 MG [address] [place] tablet multivitami Yes 1{tbl} QD Take [address] n per 8-19 tablet by [facility] - tablet 15:01: mouth Medical 48 daily. Center clopidogreL Yes 75mg QD Take [address] [facility] (PLAVIX) 75 8-19 by mouth Luke [facility] - mg tablet 15:01: daily. Medica l [address] [place] atorvastati 2020- No 80mg QD Take [address] n (LIPITOR) 8-19 08- tablet (80 [facility] - 80 MG 00:00: 23:59 mg total) Medica l tablet 00 :00 by mouth Center nightly. Ditropan Ditropan Yes Elaina 1/[address] [facility] 9-05 [place] [facility] - 00:00: [facility] 00 Outpati ent Clinics Testosteron Testosteron Yes Ealina [address] [facility] e Cypionate e Cypionate 1-03 [place] [facility] - 00:00: [facility] 00 l Outpati ent Clinics Coreg Coreg Yes Elaina not [facility] defined [facility] - [facility] l Outpat[facility] ent Clinics Isosorbide Isosorbide Yes Elaina [address] [facility] Mononitrate Mononitrate [place] in the [facility] - ER ER morning [facility] Vitamin D3 Vitamin D3 Yes Elaina [address] [facility] [place] [facility] - [facility] l [facility] Potassium Potassium Yes Elaina [address] [facility] Chloride Chloride [place] with food Lukes - Porsche ER Porsche ER Memoria l [facility] ent [facility]ics Gabapentin Gabapentin Yes Elaina [address] [place] [facility] - [facility] Zocor Zocor Yes Elaina [address] [facility] [place] in the Lukes - evening Memoria l [facility] Lotrisone Lotrisone Yes Elaina APPLY [facility] TOPICALLY [facility] - TO AREA Memoria ONCE A DAY l [facility] Amlodipine Amlodipine Yes Elaina [address] [facility] Besylate Besylate [place] - Memoria l [facility] Wellbutrin Wellbutrin Yes Elaina [address] [facility] [facility] XL XL [place] in the [facility] - morning [facility] Hydrochloro Hydrochloro Yes Elaina [address] thiazide thiazide [place] in the L [facility] - morning [facility] Vitamin Vitamin Yes Elaina not [facility] [id number]-[id number] [place] defined [facility] - Acid Acid Memoria l [facility] Zoloft Zoloft Yes Elaina [address] [facility] [place] [facility] - [facility] Pantoprazol Pantoprazol Yes Elaina [address] e Sodium e Sodium [place] - Memoria l [facility] Nuvigil Nuvigil Yes Elaina [address] [facility] [facility] [place] in [place] [facility] - [facility] Omeprazole Omeprazole Yes Elaina [address] [facility] [place] [facility] - [facility] Procedures This patient has no known procedures. Plan of Care Planned Activity Planned Date Details Comments Source Future Scheduled 2021-04-[address] [facility] - Test 00:00:00 (Season Ended) [code = [facility] INFLUENZA VACCINE (Season Ended)] Future Scheduled 2020-08-[address] [facility] - Test 00:00:00 (12+) [code = Medical Center DEPRESSION SCREENING (12+)] Future Scheduled 2008-11-[address] [facility] - Test 00:00:00 WELLNESS (YEAR 2 or Medical Center FIRST YEAR if no IPPE) [code = MEDICARE ANNUAL WELLNESS (YEAR 2 or FIRST YEAR if no IPPE)] Future Scheduled 2007-12-05 PNEUMOCOCCAL 65+ [facility] Test 00:00:00 (1 of 1 - Medical Center [id number] PCV13) [code = PNEUMOCOCCAL 65+ YRS (1 of 1 - [id number] PCV13)] Future Scheduled 1992 SHINGLES VACCINES ([address] [facility] - Test 00:00:00 of 2) [code = SHINGLES Medic al Center VACCINES (1 of 2)] Future Scheduled 1961 DTAP/TDAP/TD VACCINES [facility] Test 00:00:00 (1 - Tdap) [code = Medical C enter DTAP/TDAP/TD VACCINES (1 - Tdap)] Future Scheduled 1960 HEPATITIS C SCREENING [facility] Test 00:00:00 [code = HEPATITIS C Medical Center SCREENING] Encounters Start End Encounter Admission Attending Care Care Encounter Source Date/Time Date/Time Type Type Clinicians Facility Department ID 2021-01-10 2021-01-10 Outpatient [facility] [id number] [facility] 2020-11-29 2020-11-29 Outpatient [facility] [id number] [facility] 2020-10-10 2020-10-10 Outpatient Jared [facility] [id number] 00:00:00 00:00:00 [place] [id number] Barber [id number] 2020-09-06 2020-09-06 Outpatient Jared [facility] [id number] 00:00:00 00:00:00 [place] [id number] Barber [id number] 2020-04-29 2020-04-29 [facility] [id number] [facility] 16:00:00 16:00:00 t Specialty/U Tonia kes - Specialty rology Memori [facility] /Urology Clinic l Clinic Outpati ent Clinics 2020-04-29 2020-04-29 Outpatient Celestine Chew [id number] 13:00:00 13:00:00 t Specialty/U Tonia kes - Specialty rology Memori a /Urology Clinic l Clinic Outpati ent Clinics 2020-03-22 2020-03-22 Laboratory Lab, [facility] [id number] 14:05:14 14:25:14 Only Fam Pob I Health [id number] [place] [id number] Professio [phone] nal [address] 2020-01-28 2020-01-28 Outpatient Celestine Spraguet [id number] [address] 13:15:00 13:15:00 t Specialty/U Tonia kes - Specialty rology Memori a /Urology Clinic l Clinic Outpati ent Clinics 2020-01-25 2020-01-25 Outpatient Celestine Spraguet [id number] [address] 13:46:00 13:46:00 t Specialty/U Tonia kes - Specialty rology Memori a /Urology Clinic l Clinic Outpati ent Clinics 2019-12-28 2019-12-28 Outpatient Celestine Spraguet [id number] 13:30:00 13:30:00 t Specialty/U Tonia kes - Specialty rology Memori a /[facility] Results Test Description Test Time Test Comments Results Result Sourc e Comments FL, ESOPH, SWALLOW 2020-04-06 MBS w/parish FINAL REPORT PATIENT FUNCTION, WITH 14:54:00 SLPReason for ID: [id number] CINE OR VIDEO exam:->dsphagia EXAMINATION: /aspiration/CVA Modified barium swallow study INDICATION: CVA COMPARISON: None. TECHNIQUE: The examination was performed in conjunction with speech pathology. Varying consistencies of barium was administered under lateral fluoroscopic observation. Fluoroscopy time: 1.6 minutesNumber of images: 3 IMPRESSION: No aspiration. Flash penetration with thin consistency barium. Please refer to speech pathologist note from same day for further description. Signed: Quentin Mendez MDReport Verified Date/Time: 04/06/2020 14:54:40 Reading Location: [facility] B1 C013T Transitional Reading Room C METABOLIC PANEL 2020-04-06 01:55:00 Test Item Value Reference Range Interpretation Comme nts SODIUM (BEAKER) (test code 139 meq/L 136-145 = 381) POTASSIUM (BEAKER) (test 3.8 meq/L 3.5-5.1 code = 379) CHLORIDE (BEAKER) (test 107 meq/L 98-107 code = 382) CO2 (BEAKER) (test code = 25 meq/L 22-29 355) BLOOD UREA NITROGEN 15 mg/dL 7-21 (BEAKER) (test code = 354) CREATININE (BEAKER) (test 1.08 mg/dL 0.57-1.25 code = 358) GLUCOSE RANDOM (BEAKER) 75 mg/dL 70-105 (test code = 652) CALCIUM (BEAKER) (test code 8.7 mg/dL 8.4-10.2 = 697) EGFR (BEAKER) (test code = 66 mL/min/1.73 sq m ESTIMATED GFR IS NOT 1092) ACCURATE CRE ATININE CLEARANCE IN IN EDICTING GLOMERULAR FILT RATION RATE. ESTIMATED GFR IS NOT APPLICABLE FOR DIALYSIS PATIENTS. Boat Dock Operator ID - PIMARLENE DAVID [id number] 01:52:00 Test Item Value Reference Range Interpretation [...] failure, acidosis, acute neurological disease, and persistent tachyarrhythmia.Boat Dock Operator ID - GEEMARLENE LMR, BRAIN, WITHOUT [id number] 22:32:00Unlisted Reason for Exam - Click Yes [...] helpful for further evaluation. Signed: Etienne Mancia Verified Date/Time: 04/05/2020 22:32:21 MR, MRA, BRAIN, WITHOUT [id number] 22:26:00Reason for exam:- >Ischemic Stroke EvaluationFINAL REPORT MRA head and neck without contrast. CLINICAL HISTORY: Stroke, follow up. Ischemic stroke evaluation. COMPARISON: None. TECHNIQUE: Two- and three-dimensional time-of- flight MRA images of the intra- and extracranial carotid and vertebral arterial circulations were obtained, from which maximal intensity projection 3-D reconstructions were created. FINDINGS: MRA neck:There is no vessel occlusion or NASCET-quantifiable stenosis in the extracranial carotid or vertebral arterial circulations. Flow is antegrade in both vertebral arteries. MRA tetlin of [place]: There isno vessel occlusion, flow-limiting stenosis, or aneurysm in the intracranial carotid or vertebrobasilar arterial circulations. IMPRESSION: Negative intra- and extracranial MRAs. Signed: Etienne Mancia Verified Date/Time: 04/05/2020 22:26:03 MR, MRA, NECK, WITHOUT IV [id number] 22:26:00Reason for exam:->Ischemic Stroke EvaluationFINAL REPORT MRA head and neck without contrast. CLINICAL HISTORY: Stroke, follow up. Ischemic stroke evaluation. COMPARISON: None. TECHNIQUE: Two- and three- dimensional [id number] MRA images of the intra- and extracranial carotid and vertebral arterial circulations were obtained, from which maximal intensity projection 3-D reconstructions were created. FINDINGS: MRA neck:There is no vessel occlusion or NASCET-quantifiable stenosis in the extracranial carotid or vertebral arterial circulations. Flow is antegrade in both vertebral arteries. MRA tetlin of [place]erv[place]: There isno vessel occlusion, flow-limiting stenosis, or aneurysm in the intracranial carotid or vertebrobasilar arterial circulations. IMPRESSION: Negative intra- and extracranial MRAs. Signed: Etienne Mancia Verified Date/Time: 04/05/2020 22:26:03 HEMOGLOBIN [id number] 11:32:00 Test Item Value Reference Range Interpretation Comments HEMOGLOBIN A1C (BEAKER) (test code = 5.5 % 4.3-6.1 368) RAD, CHEST, 1 VIEW, NON [id number] 07:30:00Reason for exam:- >baselineShould this be performed at the bedside?->YesFINAL REPORT CLINICAL HISTORY: baseline TECHNIQUE: 1 view of the chest. ANTIONETTE RISON: None IMPRESSION: There are no focal infiltrates or effusions. Incidental note is made of an azygos lobe. The cardiomediastinal silhouette is magnified by technique. The osseous structures appearintact. Signed: Lisa Geronimo Verified Date/Time: 04/05/2020 07:30:03 Reading Location: [facility] Radiology Reading Room HEPATIC FUNCTION [id number] 07:17:00 Test Item Value Reference Range Interpretation [...] (test code = 15 U/L 6-55 347) Boat Dock Operator ID - DBFOLATE, [id number] 06:47:00 Test Item Value Reference Range Interpretation Comments FOLATE (BEAKER) (test code = 362) > ng/mL >=7.00 Boat Dock Operator ID - EDASIVITAMIN [id number] 05:50:00 Test Item Value Reference Range Interpretation Comments VITAMIN B12 (BEAKER) (test code = 620 pg/mL 213-816 774) Boat Dock Operator ID - EDASITSH/FREE T4 IF [id number] 05:50:00 Test Item Value Reference Range Interpretation Comments THYROID STIMULATING HORMONE 0.513 uIU/mL 0.350-4.940 (BEAKER) (test code = 772) Boat Dock Operator ID - EDASITROPONIN [id number] 04:27:00 Test Item Value Reference Range Interpretation [...] failure, acidosis, acute neurological disease, and persistent tachyarrhythmia.Boat Dock Operator ID - EDASILIPID [id number] 04:24:00 Test Item Value Reference Range Interpretation [...] Borderline 130-159 High 160-189 Very High >=190 Boat Dock Operator ID - EDASIBASIC METABOLIC [id number] 04:24:00 Test Item Value Reference Range Interpretation [...] S NOT APPLICABLE FOR DIALYSIS PATIEN TS. Boat Dock Operator ID - [id number] 04:12:00 Test Item Value Reference Range Interpretation Comments PARTIAL THROMBOPLASTIN TIME 30.4 seconds 22.5-36.0 (BEAKER) (test code = 760) PROTHROMBIN [id number] 04:11:00 Test Item Value Reference Range Interpretation [...] is2.5-3.5 for patients wiht mechanical heart valves.CBC W/PLT COUNT & AUTO [id number] 04:07:00 Test Item Value Reference Range Interpretation [...] 0-1 PERCENT (BEAKER) (test code = 2801) [id number] 07:24:00 Test Item Value Reference Range Interpretation Comments ACT-ISTAT (test code = ACTI) 208 SEC 74-137 H BASIC METABOLIC [id number] 08:47:00 Test Item Value Reference Range Interpretation [...] 8.7 MG/DL 8.4-10.2 N CA) CBC W/AUTO [id number] 08:17:00 Test Item Value Reference Range Interpretation [...] 0.00 K/mm3 0.0-0.1 N NRBC#) BASIC METABOLIC [id number] 06:47:00 Test Item Value Reference Range Interpretation [...] 0-189 mg/dL VERY HIGH...... ...>/= 190 mg/dL [id number] 06:47:00 Test Item Value Reference Range Interpretation Comments MAGNESIUM (test code = MAG) 1.9 MG/DL 1.6-2.3 N PROTHROMBIN [id number] 06:44:00 Test Item Value Reference Range Interpretation [...] syste payal embolism. 3.0 - 4.5 PTT [id number] 06:44:00 Test Item Value Reference Range Interpretation Comments PTT ACTIVATED (test code = APTT) 33.7 SECONDS 25.1-36.5 N BASIC METABOLIC [id number] 06:36:00 Test Item Value Reference Range Interpretation [...] LDL (test MG/DL 0-99 code = LDL) [id number] 06:36:00 Test Item Value Reference Range Interpretation Comments MAGNESIUM (test code = MAG) 1.9 MG/DL 1.6-2.3 N BASIC METABOLIC [id number] 06:35:00 Test Item Value Reference Range Interpretation [...] LDL (test MG/DL 0-99 code = LDL) [id number] 06:35:00 Test Item Value Reference Range Interpretation Comments MAGNESIUM (test code = MAG) 1.9 MG/DL 1.6-2.3 N BASIC METABOLIC [id number] 06:34:00 Test Item Value Reference Range Interpretation [...] LDL (test code = LDL) MG/DL 0-99 [id number] 06:34:00 Test Item Value Reference Range Interpretation Comments MAGNESIUM (test code = MAG) MG/DL 1.6-2.3 BASIC METABOLIC [id number] 06:32:00 Test Item Value Reference Range Interpretation [...] LDL (test code = LDL) MG/DL 0-99 [id number] 06:32:00 Test Item Value Reference Range Interpretation Comments MAGNESIUM (test code = MAG) MG/DL 1.6-2.3 CBC W/AUTO [id number] 06:20:00 Test Item Value Reference Range Interpretation [...] K/mm3 0.0-0.1 N NRBC#) Coronavirus 2018 nCoV [id number] 18:32:00 Test Item Value Reference Range Interpretation Comments Coronavirus 2019 nCoV Negative NEGATIVE Per ma nufacturer, Bedside (test code = negativ e [...]
--- NOTE | 2021-04-22 19:38 | RAD REPORT ---
EXAM DESCRIPTION: CT - Head C Spine Mpr Wo Con - 04/22/2021 7:13 pm CLINICAL HISTORY: Head and neck injury status post fall. Head and neck pain COMPARISON: September 2020 TECHNIQUE: Computed axial tomography of the head and cervical spine was obtained. Sagittal and coronal reconstruction was performed. All CT scans are performed using dose optimization technique as appropriate and may include automated exposure control or mA/KV adjustment according to patient size. FINDINGS: Scalp laceration. An intracranial bleed is not seen. Mild low-density areas within periventricular, deep and subcortica l white matter probably skip changes secondary to small vessel disease. The ventricles are normal in caliber. An extra-axial fluid collection is not noted.Fluid within the v isualized sinuses and mastoids is not seen A cervical fracture is not visualized. No dislocation is noted. Thyromegaly IMPRESSION: No acute intracranial abnormality is seen. A cervical fracture is not visualized. If the patient continues to have symptoms to suggest intracra nial /spinal cord pathology then MRI would be recommended
[2021-04-22] MEDS ORDERED: LIDOCAINE 1% W/EPI 1:100,000 MDV 20 ML VIAL ONE (20:06)
--- NOTE | 2021-04-22 20:48 | EDPHYS ---
Physician Documentation [facility] Name: Jp Sun Age: 80 yrs Sex: Male : 1940 Arrival Date: 04/22/2021 Time: 19:05 Bed 4 Private MD: ED Physician Devaughn Gonzalez HPI: 04/22 20:00 This 80 yrs old Male presents to ER via Unassigned with complaints of Head cp Injury. 20:00 The patient or guardian reports injury, a laceration, irregular. The complaints affect cp the left frontal area and left temporal area. 20:00 Context of injury: The problem was sustained at a store, resulted from a fall, while cp walking, impacting a hard surface, hitting tile. Onset: The symptoms/episode began/occurred just prior to arrival. Associated signs and symptoms: Loss of consciousness: This patient did not experience any loss of consciousness. Pertinent negatives: patient denies any alcohol consumption, neck pain, seizure, weakness in extremities, generalized weakness. Historical: - Allergies: 20:55 No Known Allergies; bb - Immunization history:: Adult Immunizations up to date, Client reports receiving the 2nd dose of the Covid vaccine. - Social history:: Smoking status: unknown. ROS: 20:05 Neuro: Negative for altered mental status, dizziness, loss of consciousness, syncope, cp weakness. 20:05 Constitutional: Negative for body aches, chills, fever, poor PO intake. cp 20:05 Eyes: Negative for injury, pain, redness, and discharge. cp 20:05 Cardiovascular: Negative for chest pain, palpitations. cp 20:05 Respiratory: Negative for cough, shortness of breath, wheezing. 20:05 Abdomen/GI: Negative for abdominal pain, nausea, vomiting, and diarrhea. 20:05 Skin: Positive for hematoma, laceration(s), of the scalp. 20:05 All other systems are negative. Exam: 20:10 Constitutional: The patient appears in no acute distress, alert, awake, cp non-diaphoretic, non-toxic, well developed, well nourished. 20:10 Head/face: Noted is hematoma, that is moderate, of the left temporal area, a cp laceration(s), of the left temporal area. 20:10 Eyes: Periorbital structures: appear normal, Pupils: equal, round, and reactive to light and accomodation, Extraocular movements: intact throughout, Lids and lashes: appear normal, bilaterally. 20:10 Neck: C-spine: vertebral tenderness, that is mild, appreciated at C5 and C6, crepitus, is not appreciated, ROM/movement: is normal, is supple, without pain, no range of motions limitations. 20:10 Chest/axilla: Inspection: normal, Palpation: is normal, no crepitus, no tenderness. 20:10 Cardiovascular: Rate: normal. 20:10 Respiratory: the patient does not display signs of respiratory distress, Respirations: normal, no use of accessory muscles, no retractions, labored breathing, is not present, Breath sounds: are clear throughout, no decreased breath sounds. 20:10 Abdomen/GI: Inspection: abdomen appears normal, Palpation: abdomen is soft and non-tender, in all quadrants. 20:10 Back: vertebral tenderness, is not appreciated. 20:10 Neuro: Orientation: to person, place \T\ time. Mentation: is normal, Motor: moves all fours, strength is normal. Vital Signs: 19:55 BP 156 / 87; Pulse 67; Resp 18; Temp 98.7(O); Pulse Ox 96% on R/A; Weight 99.79 kg (R); bb Height 6 ft. 0 in. (182.88 cm) (R); Pain 5/10; 20:58 BP 154 / 88; Pulse 60; Resp 16 S; Pulse Ox 95% on R/A; bb 19:55 Body Mass Index 29.84 (99.79 kg, 182.88 cm) bb [place] Coma Score: 20:00 Eye Response: spontaneous(4). Verbal Response: oriented(5). Motor Response: obeys cp commands(6). Total: 15. 20:10 Eye Response: spontaneous(4). Verbal Response: oriented(5). Motor Response: obeys cp commands(6). Total: 15. Laceration: 20:30 Wound Repair of 2.5cm ( 1.0in ) subcutaneous laceration to left temporal area. cp Irregularly shaped.. Distal neuro/vascular/tendon intact. Anesthesia: Local anesthetic administered with 2 mls of 1% lidocaine w/ Epi. Wound prep: Simple cleansing by la. Skin closed with 5 1-0 Tom using staple gun. Dressed with 4x4's. Patient tolerated well. MDM: 19:31 Patient medically screened. cp 19:45 Differential diagnosis: Contusion of Hematoma on Laceration of Intracranial bleed- cp Concussion cerebral contusion. 20:46 Data reviewed: vital signs, nurses notes, radiologic studies, CT scan. 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 20:46 Response to treatment: the patient's symptoms have markedly improved after treatment, cp and as a result, I will discharge patient. 04/22 19:07 Order name: CT Head C Spine; Complete Time: 19:39 em1 04/22 19:39 Interpretation: Reviewed report. cp 04/22 19:57 Order name: Wound Care: please clean and irrigate wound; Complete Time: 20:59 cp 04/22 19:57 Order name: Vital Signs; Complete Time: 20:59 cp 04/22 20:29 Order name: Wound dressing; Complete Time: 20:59 cp Administered Medications: No medications were administered Disposition: 21:00 Chart complete. cp 04/23 05:44 Co-signature as Attending Physician, Devaughn Gonzalez MD. [email or web address] Disposition Summary: 04/22/21 20:47 Discharge Ordered Location: Home cp Problem: new cp Symptoms: have improved cp Condition: Stable cp Diagnosis - Laceration without foreign body of scalp cp - Fall on same level from slipping, tripping and stumbling without subsequent cp striking against object Followup: cp - With: Private Physician - When: 1 week - Reason: Staple/Suture removal Discharge Instructions: - Discharge Summary Sheet cp - Head Injury, Adult cp - Laceration Care, Adult cp - Sutures, Hooper, or Adhesive Wound Closure cp Forms: - Medication Reconciliation Form cp - Thank You Letter cp - Antibiotic Education cp - Prescription Opioid Use cp Signatures: Dispatcher MedHo Michelle Ambriz RN RN bb Page, Corey, PA PA Devaughn Palafox MD MD [email or web address]
--- NOTE | 2021-04-22 20:48 | ER ---
Nurse's Notes [facility] Name: Jp Sun Age: 80 yrs Sex: Male : 1940 Arrival Date: 04/22/2021 Time: 19:05 Bed 4 Private MD: Diagnosis: Laceration without foreign body of scalp;Fall on same level from slipping, tripping and stumbling without subsequent striking against object Presentation: 04/22 19:30 Chief complaint: EMS states: they were toned out for report of pt falling in [employer] parking lot receiving lac to scalp pt denied LOC. Coronavirus screen: At this time, the client does not indicate any symptoms associated with coronavirus-19. Ebola Screen: No symptoms or risks identified at this time. Initial Sepsis Screen: Does the patient meet any 2 criteria? No. Patient's initial sepsis screen is negative. Does the patient have a suspected source of infection? No. Patient's initial sepsis screen is negative. Risk Assessment: Do you want to hurt yourself or someone else? Patient reports no desire to harm self or others. Onset of symptoms was April 22, 2021. 19:30 Method Of Arrival: EMS: [facility] 19:30 Acuity: FRANCISCO 3 bb Triage Assessment: 19:30 General: Appears in no apparent distress. uncomfortable, Behavior is calm, cooperative. bb Pain: Complains of pain in head Pain currently is 5 out of 10 on a pain scale. Neuro: Level of Consciousness is awake, alert, obeys commands, Oriented to person, place, situation. Cardiovascular: Capillary refill < 3 seconds Patient's skin is warm and dry. Respiratory: Airway is patent Respiratory effort is even, unlabored, Respiratory pattern is regular. GI: Abdomen is non-distended. : No signs and/or symptoms were reported regarding the genitourinary system. Derm: Skin is pink, warm \T\ dry. bandages to head blood soaked. Musculoskeletal: Circulation, motion, and sensation intact. Historical: - Allergies: 20:55 No Known Allergies; bb - Immunization history:: Adult Immunizations up to date, Client reports receiving the 2nd dose of the Covid vaccine. - Social history:: Smoking status: unknown. Screenin:33 Abuse screen: Denies threats or abuse. Denies injuries from another. Nutritional iw screening: No deficits noted. Tuberculosis screening: No symptoms or risk factors identified. Fall Risk Fall in past 12 months (25 points). Assessment: 19:30 Reassessment: No changes from previously documented assessment. Patient is alert, bb oriented x 3, equal unlabored respirations, skin warm/dry/pink. see triage assessment. 20:58 Reassessment: Patient is alert, oriented x 3, equal unlabored respirations, skin bb warm/dry/pink. misty in place to scalp. Vital Signs: 19:55 BP 156 / 87; Pulse 67; Resp 18; Temp 98.7(O); Pulse Ox 96% on R/A; Weight 99.79 kg (R); bb Height 6 ft. 0 in. (182.88 cm) (R); Pain 5/10; 20:58 BP 154 / 88; Pulse 60; Resp 16 S; Pulse Ox 95% on R/A; bb 19:55 Body Mass Index 29.84 (99.79 kg, 182.88 cm) bb Gunjan Coma Score: 20:00 Eye Response: spontaneous(4). Verbal Response: oriented(5). Motor Response: obeys cp commands(6). Total: 15. 20:10 Eye Response: spontaneous(4). Verbal Response: oriented(5). Motor Response: obeys cp commands(6). Total: 15. ED Course: 19:05 Patient arrived in ED. em1 19:13 CT Head C Spine In Process Unspecified. EDMS 19:24 Michelle Pearson RN is Primary Nurse. bb 19:26 Israel Gutierrez PA is PHCP. cp 19:26 Devaughn Gonzalez MD is Attending Physician. cp 19:30 Arm band placed on Patient pt to CT scan via EMS stretcher. bb 20:55 Triage completed. bb 21:00 Assist provider with laceration repair on scalp that was using. Patient did not have IV iw access during this emergency room visit. 21:25 Wound care: to laceration located on left parietal area was cleaned with soap and mh5 water, Patient tolerated well. WRAPPED WITH KERLIX. 21:27 Patient has correct armband on for positive identification. Bed in low position. Call mh5 light in reach. Side rails up X2. Adult w/ patient. Pulse ox on. NIBP on. Administered Medications: No medications were administered Outcome: 20:47 Discharge ordered by MD. cp 21:33 Discharged to home via wheelchair, with family. iw 21:33 Condition: good 21:33 Discharge instructions given to patient, Instructed on discharge instructions, follow up and referral plans. Demonstrated understanding of instructions, follow-up care, wound care. 21:34 Patient left the ED. iw Signatures: Dispatcher [employer] EDMichelle Mulligan RN RN bb Williams, Irene, RN RN iw Martinez, Eric [facility] Israel Gutierrez PA PA cp Martinez, Liz [facility]
[2021-04-22 21:40] VITALS: TEMP 98.7
[2021-04-22 21:41] VITALS: BP 154/88; O2SAT 95
== END 2021-04-22 21:34 | disposition home or self-care (01) ==
LOC: ER 19:01
PROC: 0JQ00ZZ Repair Scalp Subcutaneous Tissue and Fascia, Open Approach (ICD-10-PCS; principal; 2021-04-22)
DX: S01.01XA Laceration without foreign body of scalp, initial encounter (principal); W01.0XXA Fall on same level from slipping, tripping and stumbling without subsequent striking against object, initial encounter; Y93.01 Activity, walking, marching and hiking; Y92.512 Supermarket, store or market as the place of occurrence of the external cause
CPT/HCPCS: 70450; 72125; 99284

== ENCOUNTER 2021-09-13 22:48 | Emergency (ER) | payer OTHER ==
--- OUTSIDE RECORDS SUMMARY | 2021-09-13 22:53 | XMS REPORT | Continuity of Care Document ---
:1940 Author Organization [facility] t Address [address] [place] [address] Care Team Providers Name Role Phone Jared Melquiades Primary Care Physician Tomas Attending Clinician Unavailable Farzana HAYDEN Attending Clinician Unavailable MELY LEMON Attending Clinician Unavailable Garo Yanes Attending Clinician Unavailable Doctor Unassigned, Name Attending Clinician Unavailable EMELINA Attending Clinician Unavailable Catracho HERNANDEZ L Attending Clinician Lab, Fam Pob I Attending Clinician Unavailable Farzana HAYDEN Admitting Clinician Unavailable MELY LEMON Admitting Clinician Unavailable Physician, Primary or Family Admitting Clinician Unavailabl e EMELINA Admitting Clinician Unavailable Payers Payer Name Policy Type Policy Number Effective Date Expiration Date S ource MEDICARE PART A \T\ [id number] 2007 B 00:00:00 [employer] COMMERCIAL [id number] 2013 OUT OF NETWORK 00:00:00 MEDICARE A B [id number] 2007 00:00:00 [employer] INDEMNITY NON [id number] 2013 CONTR 00:00:00 MEDICARE B-[place]: [id number] 2007 [place] [employer] 00:00:00 [employer] (INDEMNITY) [id number] 2000 00:00:00 Problems Condition Condition Condition Status Onset Resolution Last Treating Co mments Source Name Details Category Date Date Treatment Clinician Date Ischemic Ischemic Disease Active Unive rs stroke stroke 8-18 ity of 00:00: [address] Allergies, Adverse Reactions, Alerts Allergy Allergy Status Severity Reaction(s) Onset Inactive Treating Comm ents Source Name Type Date Date Clinician No Known DA Active U 2019-0 [facility] [address] 00:00: d 00 [facility] No Known DA Active U 0 [facility] 6-05 [place] 00:[place]: [place] 00 [facility] NO KNOWN Allergy Active [facility] NO KNOWN Drug Active Univers ALLERGIE Class ity of S [facility] Social History Social Habit Start Date Stop Date Quantity Comments Source Exposure to Not sure [facility] SARS-CoV-2 [facility] (event) [place] Alcohol intake 2021-09-08 2021-09-08 Lifetime University of 00:00:00 00:00:00 non-drinker [facility] (finding) [place] Tobacco use and 2021-08-16 2021-08-16 Never used Universit y of exposure 00:00:00 00:00:00 [facility] Sex Ass[birth year] At [birth year] Universit y of 00:00:00 00:00:00 [facility] Smoking Status Start Date Stop Date Source Never smoker [facility] Medications Ordered Filled Start Stop Current Ordering Indication Dosage Frequency Signature Comments Components Source Medication Medication Date Date Medication? Clinician (SIG) Name Name SERTraline 2020-08 Yes 125mg Take 125 Un teri 100 mg 2-29 mg by ity of tablet 16:16: mouth. [address] SERTraline 2020-08 Yes 125mg Take 125 Un teri 100 mg 2-29 mg by ity of tablet 16:16: mouth. [address] SERTraline 2020-08 Yes 125mg Take 125 Un teri 100 mg 2-29 mg by ity of tablet 16:16: mouth. [address] SERTraline 2020-08 Yes 125mg Take 125 Un teri 100 mg 2-29 mg by ity of tablet 16:16: mouth. [address] carvediloL 2020-08 Yes 25mg Take 25 mg U nivers 25 mg 2-29 by mouth. ity of tablet 16:16: [address] gabapentin 2020-08 Yes 400mg Take 400 Un teri 400 mg 2-29 mg by ity of capsule 16:16: mouth. [address] carvediloL 2020-08 Yes 25mg Take 25 mg U nivers 25 mg 2-29 by mouth. ity of tablet 16:16: [address] gabapentin 2020-08 Yes 400mg Take 400 Un teri 400 mg 2-29 mg by ity of capsule 16:16: mouth. [address] carvediloL 2020-08 Yes 25mg Take 25 mg U nivers 25 mg 2-29 by mouth. ity of tablet 16:16: [address] gabapentin 2020-08 Yes 400mg Take 400 Un teri 400 mg 2-29 mg by ity of capsule 16:16: mouth. [address] carvediloL 2020-08 Yes 25mg Take 25 mg U nivers 25 mg 2-29 by mouth. ity of tablet 16:16: [address] gabapentin 2020-08 Yes 400mg Take 400 Un teri 400 mg 2-29 mg by ity of capsule 16:16: mouth. [address] pantoprazol 2020-08 Yes Univer s e 40 mg EC 2-14 ity of tablet 00:00: [address] pravastatin 2020-08 Yes Univer s 40 mg 2-14 ity of tablet 00:00: [address] pantoprazol 2020-08 Yes Univer s e 40 mg EC 2-14 ity of tablet 00:00: [address] pravastatin 2020-08 Yes Univer s 40 mg 2-14 ity of tablet 00:00: [address] pantoprazol 2020-08 Yes Univer s e 40 mg EC 2-14 ity of tablet 00:00: [address] pravastatin 2020-08 Yes Univer s 40 mg 2-14 ity of tablet 00:00: [address] pantoprazol 2020-08 Yes Univer s e 40 mg EC 2-14 ity of tablet 00:00: [place] [facility] pravastatin 2020-08 Yes Univer s 40 mg 2-14 ity of tablet 00:00: [place] [facility] traMADoL 50 2020-08 Yes Univer s mg tablet 2-12 ity of 00:00: [place] [facility] traMADoL 50 2020-08 Yes Univer s mg tablet 2-12 ity of 00:00: [place] [facility] traMADoL 50 2020-08 Yes Univer s mg tablet 2-12 ity of 00:00: [facility] traMADoL 50 2020-08 Yes Univer s mg tablet 2-12 ity of 00:00: [place] [facility] nitroglycer 2020-08 Yes Univer s in 0.4 mg 1-22 ity of sublingual 00:00: [place] tablet 00 [facility] nitroglycer 2020-08 Yes Univer s in 0.4 mg 1-22 ity of sublingual 00:00: [place] tablet 00 [facility] nitroglycer 2020-08 Yes Univer s in 0.4 mg 1-22 ity of sublingual 00:00: [place] tablet [facility] nitroglycer 2020-08 Yes Univer s in 0.4 mg 1-22 ity of sublingual 00:00: [place] tablet 00 [facility] buPROPion 2020-08 Yes Univers XL 300 mg 1-21 ity of 24 hr 00:00: [place] tablet 00 [facility] buPROPion 2020-08 Yes Univers XL 300 mg 1-21 ity of 24 hr 00:00: [place] tablet 00 [facility] buPROPion 2020-08 Yes Univers XL 300 mg 1-21 ity of 24 hr 00:00: [place] tablet 00 [facility] buPROPion 2020-08 Yes Univers XL 300 mg 1-21 ity of 24 hr 00:00: [place] tablet 00 [facility] losartan 50 2020-08 Yes Univer s mg tablet 1-18 ity of 00:00: [place] 00 [facility] losartan 50 2020-08 Yes Univer s mg tablet 1-18 ity of 00:00: [place] 00 [facility] losartan 50 2020-08 Yes Univer s mg tablet 1-18 ity of 00:00: [place] 00 [facility] losartan 50 2020-08 Yes Univer s mg tablet 1-18 ity of 00:00: [place] 00 [facility] clopidogreL 2020-08 Yes Univer s 75 mg 0-21 ity of tablet 00:00: [place] 00 [facility] amLODIPine 2020-08 Yes Univers 5 mg tablet 0-21 ity of 00:00: [place] [facility] clopidogreL 2020-08 Yes Univer s 75 mg 0-21 ity of tablet 00:00: [facility] amLODIPine 2020-08 Yes Univers 5 mg tablet 0-21 ity of 00:00: [place] [facility] clopidogreL 2020-08 Yes Univer s 75 mg 0-21 ity of tablet 00:00: [place] [facility] amLODIPine 2020-08 Yes Univers 5 mg tablet 0-21 ity of 00:00: [place] [facility] clopidogreL 2020-08 Yes Univer s 75 mg 0-21 ity of tablet 00:00: [place] [facility] amLODIPine 2020-08 Yes Univers 5 mg tablet 0-21 ity of 00:00: [place] [facility] aspirin 81 2019-2020- No 81mg QD Take [address] [facility] MG chewable 8-20 08-20 tablet (81 L ukes - tablet 00:00: 23:59 mg total) Medic al 00 :00 by mouth Center daily. amLODIPine 2019-0 Yes 10mg QD Take [address] (NORVASC) 5 8-19 by mouth Luke s - MG tablet 15:01: daily. Medica l [address] [place] gabapentin 2019-0 Yes 400mg QD Take [address] (NEURONTIN) 8-19 mg by [facility] - 400 MG 15:01: mouth Medical capsule 48 daily. [place] carvediloL 0 Yes 25mg QD Take [address] (COREG) 25 8-19 by mouth [facility] - MG tablet 15:01: daily. Medica l [address] [place] buPROPion 2019-0 Yes 300mg QD Take [address] (WELLBUTRIN 8-19 mg by [facility] - XL) 300 MG 15:01: mouth Medica l 24 hr 48 daily. Center tablet sertraline 2019-0 Yes 125mg QD Take [address] (ZOLOFT) 8-19 mg by Lukes - 100 MG 15:01: mouth Medical tablet 48 daily. [place] pantoprazol 2019-0 Yes 40mg QD Take [address] e 8-19 by mouth [facility]ukes - (PROTONIX) 15:01: daily. Medic al 40 MG 48 Center tablet multivitami 2019-0 Yes 1{tbl} QD Take [address] n per 8-19 tablet by [facility] - tablet 15:01: mouth Medical 48 daily. Center clopidogreL Yes 75mg QD Take [address] (PLAVIX) 75 8- by mouth Luke s - mg tablet 15:01: daily. Medica l 48 Center atorvastati 2020- No 80mg QD Take [address] n (LIPITOR) 8- tablet (80 L ukes - 80 MG 00:00: 23:59 mg total) Medica l tablet 00 :00 by mouth Center nightly. Ditropan Ditropan Yes Elaina 1/[address] 9-05 [place] [facility] - 00:[facility]: [facility] Testosteron Testosteron Yes Elaina [address] e Cypionate e Cypionate 1-03 [facility]ylar [facility] - 00:00: [facility] Vitamin Vitamin Yes Elaina not [facility] W31-Lhxpe Q13-Fudte [place] defined [facility] - Acid Acid [facility] l [facility] ent Clinics Zoloft Zoloft Yes Elaina [address] [place] [facility] Pantoprazol Pantoprazol Yes Elaina [address] e Sodium e Sodium [place] - [facility] ent Clinics Nuvigil Nuvigil Yes Elaina [address] [place] in the [facility] - morning [facility]ics Omeprazole Omeprazole Yes Elaina [address] [facility] Coreg Coreg Yes Elaina not [facility] [place] defined [facility] Isosorbide Isosorbide Yes Elaina [address] Mononitrate Mononitrate [place] in the [facility] - ER ER morning Memoria l Outpati ent Clinics Vitamin D3 Vitamin D3 Yes Elaina [address] [facility] Potassium Potassium Yes Elaina [address] Chloride Chloride [place] with food [facility]ukes - Porsche ER Porsche ER [facility]oria l Outpati ent Clinics Gabapentin Gabapentin Yes Elaina [address] [facility] [place] [facility] Zocor Zocor Yes Elaina [address] [place] in the [facility] - evening Memoria l Outpati ent Clinics Lotrisone Lotrisone Yes Elaina APPLY [facility] [place] TOPICALLY [facility] - TO AREA Memoria ONCE A DAY l AT BED Outpati TIME ent Clinics Amlodipine Amlodipine Yes Elaina [address] Besylate Besylate [place] - [facility] Clinics Wellbutrin Wellbutrin Yes Elaina [address] [facility] [facility] XL XL [place] in the [facility] - morning [facility]ics Hydrochloro Hydrochloro Yes Elaina [address] thiazide thiazide [place] in the L ukes - morning [facility]oria l Outpati ent Clinics Vital Signs Vital Name Observation Time Observation Value Comments Source HEIGHT 2020-04-04 00:00:00 182.9 cm WEIGHT 2020-04-04 00:00:00 97.9 kg Body height 2021-08-16 22:23:00 175.3 cm [facility] Body weight 2021-08-16 22:23:00 93.895 kg [facility] BMI 2021-08-16 22:23:00 30.57 kg/m2 [facility] HEIGHT 2020-04-04 00:00:00 182.9 cm WEIGHT 2020-04-04 00:00:00 97.9 kg Procedures Procedure Date / Time Performed Performing Clinician [facility] e EXTERNAL PROVIDER 2021-09-12 06:01:00 Doctor Unassigned, No Univ [facility] RECORDS Name [facility] MEDICAL 2021-08-28 06:01:00 Doctor Unassigned, No [facility] RELEASE/CLEARANCE Name [facility] FORMS Plan of Care Planned Activity Planned Date Details Comments Source Future Scheduled 2021-04-[address] [facility] - Test 00:00:00 (Season Ended) [code = [facility] Center INFLUENZA VACCINE (Season Ended)] Future Scheduled [...] 00:00:00 (1 of 1 - Medical Center [id number] PCV13) [code = PNEUMOCOCCAL 65+ YRS (1 of 1 - [id number] PCV13)] Future Scheduled 1992 SHINGLES VACCINES (1 [...] Date/Time Type Type Clinicians Facility Department ID 2021-09-13 Outpatient STLMLC STLC [id number] [facility] 12:50:58 [id number] [facility] 2021-09-13 Outpatient STLMLC STLMLC [id number] [facility] 12:29:13 [id number] [facility] 2021-09-13 Outpatient Tomas STLMLC STLMLC [id number] [facility] 12:24:25 , [place] 94[address] [facility] 2021-09-13 Outpatient Jared STORGE STLC [id number] 11:21:20 [place] [id number] [facility] 2021-09-01 [id number] Univers 15:41:48 [facility] 2020-04-05 Inpatient ER [facility] Neurology [id number] [facility] 02:12:00 MADELYN 2020-01-19 Inpatient ESTELA Yanes LABRuthy [id number] [facility] 16:02:00 [facility] [id number] [facility] 2021-09-12 2021-09-12 Orders Doctor AGUAYO [id number] Univers 00:00:00 00:00:00 Only Unassigned, GILBERTO [id number] ity of [facility] [id number] Patel as [phone] [address] 2021-09-08 2021-09-08 Outpatient Tomás HAYDEN [facility] [id number] Univers 15:00:00 15:00:00 ML venus [facility] 2021-09-08 2021-09-08 [facility] [id number] Univers 13:30:00 13:30:00 ML [id number] [facility] 2021-08-28 2021-08-28 Orders Doctor OLIVIER [id number] Univers 00:00:00 00:00:00 Only Unassigned, GILBERTO [id number] ity of [facility] [id number] Patel as [phone] [address] 2021-08-26 2021-08-[address] [facility] [id number] [place] 04:34:00 04:34:00 108 [facility] 2021-08-16 2021-08-16 [facility] [id number] Univers 16:15:00 16:43:15 Visit Ml [facility] [id number] it y of [place] [id number] Patel as BRANDON?BLEA [phone] Or endy [address] MEDICAL OFFICE BUILDING 2021-07-22 2021-07-[address] [facility] [address] [place] 05:22:00 05:22:00 204 [facility] 2021-07-10 2021-07-[address] [facility] [address] [place] 11:19:00 11:19:00 122 [facility] 2021-07-10 2021-07-[address] [facility] [id number] 00:00:00 00:00:00 [place] [id number] Barber [id number] 2021-07-06 ambulatory [facility] [id number] [facility] 2021-05-03 2021-05-03 Outpatient [facility] [id number] [facility]00 [facility] 2021-04-28 2021-04-[address] [facility] [id number] [place] 04:22:00 04:22:00 910 [facility] 2021-04-28 2021-04-28 Outpatient Coleman, [facility] [id number] 00:00:00 00:00:00 [place] [id number] Barber [id number] 2021-04-28 2021-04-28 [id number]00 [facility] 2021-04-18 2021-04-[address] [facility] [id number] [place] 01:12:00 01:12:00 831 [facility] 2021-03-14 2021-03-[address] [facility] [id number] [place] 12:57:00 12:57:00 727 [facility] 2021-01-13 2021-01-[address] [facility] [id number] [place] 02:36:00 02:36:00 528 [facility] 2021-01-10 2021-01-10 [facility] [id number]00 [facility] 2021-01-09 2021-01-[address] [facility] [id number] [place] 10:40:00 10:40:00 524 [facility] 2020-12-29 2020-12-[address] [facility] [id number] [place] 01:03:00 01:03:00 513 [facility] 2020-12-29 2020-12-[address] [facility] [id number] [place] 01:03:00 01:03:00 518 [facility] 2020-11-29 2020-11-29 Outpatient [facility]LMLC [facility] [id number] [facility]00 [facility] 2020-11-24 2020-11-[address] [facility] [id number] [place] 01:02:00 01:02:00 408 [facility] 2020-10-15 2020-10-[address] [facility] [id number] [place] 01:02:00 01:02:00 227 [facility] 2020-10-13 2020-10-[address] [facility] [id number] [place] 09:17:00 09:17:00 225 [facility] 2020-10-10 2020-10-[address] [facility] [id number] [place] 03:46:00 03:46:00 222 [facility] 2020-10-10 2020-10-[address] [facility] [id number] 00:00:00 00:00:00 [place] [id number] Barber [id number] 2020-09-09 2020-09-[address] [facility] [id number] [place] 09:10:00 09:10:00 122 [facility] 2020-09-06 2020-09-[address] [facility] [id number] [place] 03:48:00 03:48:00 119 [facility] 2020-09-06 2020-09-[address] [facility] [id number] 00:00:00 00:00:00 [place] [id number] Barber [id number] 2020-08-05 2020-08-[address] [facility] [address] [place] 01:02:00 01:02:00 218 [facility] 2020-08-05 2020-08-[address] [facility] [id number] - [place] 01:02:00 01:02:00 112 [facility] 2020-04-29 2020-04-29 [facility] [id number] 16:00:00 16:00:00 t Specialty/U Tonia kes - Specialty rology Memori a /Urology Clinic l Clinic Outpati ent Clinics 2020-04-29 2020-04-29 [facility] [id number] 13:00:00 13:00:00 t Specialty/U Tonia kes - Specialty rology Memori a /Urology Clinic l Clinic Outpati ent Clinics 2020-03-22 2020-03-22 Laboratory Lab, [facility] [id number] 14:05:14 14:25:14 Only [facility] [id number] [place] [id number] Professio [phone] nal [address] 2020-01-28 2020-01-28 Out[facility] [id number] 13:15:00 13:15:00 t Specialty/U Tonia kes - Specialty rology Memori a /Urology Clinic l Clinic Outpati ent Clinics 2020-01-25 2020-01-25 [facility] [id number] 13:46:00 13:46:00 t Specialty/U Tonia kes - Specialty rology Memori a /Urology Clinic l Clinic Outpati ent Clinics 2020-01-23 2020-01-23 Outpatient Dabaghi, [facility] [id number] [facility] 09:30:00 09:30:00 [facility] 2020-01-23 2020-01-23 Outpatient Dabaghi, [facility] [id number] 05-08 [facility] 09:30:00 09:30:00 [facility] 2019-12-28 2019-12-28 Outpatient Celestine Chew [id number] 13:30:00 13:30:00 t Specialty/U Tonia ervin - Specialty rology Memori a /Urology Clinic l Clinic Outpati ent Clinics Results Test Description Test Time Test Comments Results Result Sourc e Comments FL, ESOPH, SWALLOW 2020-04-06 MBS w/parish FINAL REPORT PATIENT FUNCTION, WITH 14:54:00 SLPReason for ID: [id number] CINE OR VIDEO exam:->dsphagia EXAMINATION: /aspiration/CVA Modified [...] MDReport Verified Date/Time: 04/06/2020 14:54:40 Reading Location: [address] Transitional Reading Room C METABOLIC PANEL 2020-04-06 [...] NOT 1092) ACCURATE CRE ATININE CLEARANCE IN [place] EDICTING GLOMERULAR FILT RATION RATE. ESTIMATED GFR IS NOT APPLICABLE FOR DIALYSIS PATIENTS. Last Turner ID - PIAYA LTRJOSE [id number] 01:52:00 Test Item Value Reference Range Interpretation Comments TROPONIN I (CLIFTONAKER) (test code = 0.04 ng/mL 0.00-0.03 H [...] failure, acidosis, acute neurological disease, and persistent tachyarrhythmia.Last Turner ID - PIMARLENE LMR, BRAIN, WITHOUT [id number] 22:32:00Unlisted Reason for Exam - Click Yes [...] helpful for further evaluation. Signed: Etienne Mancia [facility] Verified Date/Time: 04/05/2020 22:32:21 MR, MRA, BRAIN, WITHOUT [id number] 22:26:00Reason for exam:- >Ischemic Stroke EvaluationFINAL REPORT [...] is antegrade in both vertebral arteries. MRA [place]: There isno vessel occlusion, flow-limiting stenosis, or aneurysm in the intracranial carotid or vertebrobasilar arterial circulations. IMPRESSION: Negative intra- and extracranial MRAs. Signed: Etienne Mancia Verified Date/Time: 04/05/2020 22:26:03 MR, MRA, NECK, WITHOUT IV [id number] 22:26:00Reason for exam:->Ischemic Stroke EvaluationFINAL REPORT MRA head and neck without contrast. CLINICAL HISTORY: Stroke, follow up. Ischemic stroke evaluation. COMPARISON: None. TECHNIQUE: Two- and three- dimensional lmsy-dn-luhmet MRA images of the intra- and extracranial carotid and vertebral arterial circulations were obtained, from which maximal intensity projection 3-D reconstructions were created. FINDINGS: MRA neck:There is no vessel occlusion or NASCET-quantifiable stenosis in the extracranial carotid or vertebral arterial circulations. Flow is antegrade in both vertebral arteries. MRA [place]: There isno vessel occlusion, flow-limiting stenosis, or aneurysm in the intracranial carotid or vertebrobasilar arterial circulations. IMPRESSION: Negative intra- and extracranial MRAs. Signed: Etienne Mancia Verified Date/Time: 04/05/2020 22:26:03 HEMOGLOBIN [id number] 11:32:00 Test Item Value Reference Range Interpretation Comments HEMOGLOBIN A1C (BEAKER) (test code = 5.5 % 4.3-6.1 368) RAD, CHEST, 1 VIEW, NON [id number] 07:30:00Reason for exam:- >baselineShould this be performed at the bedside?->YesFINAL REPORT CLINICAL HISTORY: baseline TECHNIQUE: 1 view of the chest. ANTIONETTE RISON: None IMPRESSION: There are no focal infiltrates or effusions. Incidental note is made of an azygos lobe. The cardiomediastinal silhouette is magnified by technique. The osseous structures appearintact. Signed: Lisa Mobley MDReport Verified Date/Time: 04/05/2020 07:30:03 Reading Location: [facility] Radiology Reading Room HEPATIC FUNCTION [id number] 07:17:00 Test Item Value Reference Range Interpretation [...] (test code = 15 U/L 6-55 347) Last Turner ID - DBFOLATE, [id number] 06:47:00 Test Item Value Reference Range Interpretation Comments FOLATE (BEAKER) (test code = 362) > ng/mL >=7.00 Last Turner ID - EDASIVITAMIN [id number] 05:50:00 Test Item Value Reference Range Interpretation Comments VITAMIN B12 (BEAKER) (test code = 620 pg/mL 213-816 774) Last Turner ID - EDASITSH/FREE T4 IF [id number] 05:50:00 Test Item Value Reference Range Interpretation Comments THYROID STIMULATING HORMONE 0.513 uIU/mL 0.350-4.940 (BEAKER) (test code = 772) Last Turner ID - MADDISON [id number] 04:27:00 Test Item Value Reference Range Interpretation [...] failure, acidosis, acute neurological disease, and persistent tachyarrhythmia.Last Turner ID - EDASILIPID [id number] 04:24:00 Test Item Value Reference Range Interpretation [...] Borderline 130-159 High 160-189 Very High >=190 Last Turner ID - EDSAVANNAHBASIC METABOLIC [id number] 04:24:00 Test Item Value Reference Range Interpretation [...] S NOT APPLICABLE FOR DIALYSIS PATIEN TS. Last Turner ID - [id number] 04:12:00 Test Item Value Reference Range Interpretation Comments PARTIAL THROMBOPLASTIN TIME 30.4 seconds 22.5-36.0 (BEAKER) (test code = 760) PROTHROMBIN TIME/[id number] 04:11:00 Test Item Value Reference Range Interpretation [...] mechanical heart valves.CBC W/PLT COUNT & AUTO [id number] 04:07:00 Test Item Value Reference Range Interpretation [...] 0-1 PERCENT (BEAKER) (test code = 2801) [id number] 07:24:00 Test Item Value Reference Range Interpretation Comments ACT-ISTAT (test code = ACTI) 208 SEC 74-137 H BASIC METABOLIC [id number] 08:47:00 Test Item Value Reference Range Interpretation [...] 8.7 MG/DL 8.4-10.2 N CA) CBC W/AUTO [id number] 08:17:00 Test Item Value Reference Range Interpretation [...] 0.00 K/mm3 0.0-0.1 N NRBC#) BASIC METABOLIC [id number] 06:47:00 Test Item Value Reference Range Interpretation [...] 0-189 mg/dL VERY HIGH...... ...>/= 190 mg/dL [id number] 06:47:00 Test Item Value Reference Range Interpretation Comments MAGNESIUM (test code = MAG) 1.9 MG/DL 1.6-2.3 N PROTHROMBIN [id number] 06:44:00 Test Item Value Reference Range Interpretation [...] syste payal embolism. 3.0 - 4.5 PTT [id number] 06:44:00 Test Item Value Reference Range Interpretation Comments PTT ACTIVATED (test code = APTT) 33.7 SECONDS 25.1-36.5 N BASIC METABOLIC [id number] 06:36:00 Test Item Value Reference Range Interpretation [...] LDL (test MG/DL 0-99 code = LDL) [id number] 06:36:00 Test Item Value Reference Range Interpretation Comments MAGNESIUM (test code = MAG) 1.9 MG/DL 1.6-2.3 N BASIC METABOLIC [id number] 06:35:00 Test Item Value Reference Range Interpretation [...] LDL (test MG/DL 0-99 code = LDL) [id number] 06:35:00 Test Item Value Reference Range Interpretation Comments MAGNESIUM (test code = MAG) 1.9 MG/DL 1.6-2.3 N BASIC METABOLIC [id number] 06:34:00 Test Item Value Reference Range Interpretation [...] LDL (test code = LDL) MG/DL 0-99 [id number] 06:34:00 Test Item Value Reference Range Interpretation Comments MAGNESIUM (test code = MAG) MG/DL 1.6-2.3 BASIC METABOLIC [id number] 06:32:00 Test Item Value Reference Range Interpretation [...] LDL (test code = LDL) MG/DL 0-99 [id number] 06:32:00 Test Item Value Reference Range Interpretation Comments MAGNESIUM (test code = MAG) MG/DL 1.6-2.3 CBC W/AUTO [id number] 06:20:00 Test Item Value Reference Range Interpretation [...] = 0.00 K/mm3 0.0-0.1 N NRBC#) Coronavirus 2019 nCoV [id number] 18:32:00 Test Item Value Reference Range Interpretation Comments Coronavirus 2019 nCoV Negative NEGATIVE Per ca nufacturer, Bedside (test code = negativ e [...]
[2021-09-13] MEDS ORDERED: NA CHLORIDE 0.9% 1,000 ML ONE (23:23)
[2021-09-14 00:01] LABS: Hematocrit 37.7 % (39.6-49.0); Lymphocytes % 14.9 % (15.3-44.8); MPV 8.6 fL (7.6-11.3); RBC Red Blood Cell Count 4.38 M/uL (4.33-5.43)
[2021-09-14 00:10] LABS: Potassium 3.9 mmol/L (3.5-5.1)
--- NOTE | 2021-09-14 01:02 | ER ---
Nurse's Notes [facility] Name: Jp Sun Age: 80 yrs Sex: Male : 1940 Arrival Date: 09/13/2021 Time: 22:52 Bed 5 Private MD: Diagnosis: Dehydration;Dysphasia and aphasia Presentation: 09/13 22:55 Chief complaint: Patient states: C/O difficulty swallowing, coughing, difficulty ld1 drinking water and eating. Pt received MRI on Saturday here at [facility]. recommended speech therapy. Coronavirus screen: At this time, the client does not indicate any symptoms associated with coronavirus-19. Ebola Screen: No symptoms or risks identified at this time. Initial Sepsis Screen: Does the patient meet any 2 criteria? No. Patient's initial sepsis screen is negative. Does the patient have a suspected source of infection? No. Patient's initial sepsis screen is negative. Risk Assessment: Do you want to hurt yourself or someone else? Patient reports no desire to harm self or others. Onset of symptoms was September 13, 2021. 22:55 Method Of Arrival: Ambulatory ld1 22:55 Acuity: FRANCISCO 3 ld1 Triage Assessment: 22:59 General: Appears in no apparent distress. uncomfortable, Behavior is calm, cooperative, ld1 appropriate for age. Pain: Denies pain. EENT: Reports difficulty swallowing since 1 month. Worsened today. Neuro: Level of Consciousness is awake, alert, obeys commands, Oriented to person, place, time, situation. Respiratory: Airway is patent Respiratory effort is even, unlabored. Historical: - Allergies: 22:59 No Known Allergies; ld1 - PMHx: 22:59 Hypertension; TIA; Difficulty Swallowing; ld1 - PSHx: 22:59 None; ld1 - Immunization history:: Adult Immunizations up to date, Client reports receiving the 2nd dose of the Covid vaccine, Moderna, Pfizer. - Social history:: Smoking status: Patient denies any tobacco usage or history of. Patient/guardian denies using alcohol. - Family history:: not pertinent. - Hospitalizations: : No recent hospitalization is reported. Screenin:57 Abuse screen: Denies threats or abuse. Nutritional screening: No deficits noted. vc1 Tuberculosis screening: No symptoms or risk factors identified. Fall Risk IV access (20 points). Ambulatory Aid- None/Bed Rest/Nurse Assist (0 pts). Gait- Normal/Bed Rest/Wheelchair (0 pts) Mental Status- Oriented to own ability (0 pts). Total Burnham Fall Scale indicates No Risk (0-24 pts). Assessment: 23:58 General: Appears in no apparent distress. Behavior is calm, cooperative. Neuro: No sm5 deficits noted. Level of Consciousness is awake, alert, Oriented to person, place, time, situation. Cardiovascular: No deficits noted. EENT: Reports difficulty swallowing since 1 month. 09/14 01:12 Reassessment: No changes from previously documented assessment. 5 Vital Signs: 09/13 22:55 BP 153 / 104; Pulse 85; Resp 18; Temp 98.1(TE); Pulse Ox 98% on R/A; Weight 88.45 kg; ld1 Height 6 ft. 0 in. (182.88 cm); Pain 0/10; 23:30 BP 156 / 97; Pulse 72; Resp 27; Pulse Ox 98% on R/A; vc1 09/14 00:00 BP 145 / 86; Pulse 71; Resp 24; Pulse Ox 99% on R/A; vc1 01:12 BP 148 / 72; Pulse 81; Resp 18; Pulse Ox 98% on R/A; sm5 09/13 22:55 Body Mass Index 26.45 (88.45 kg, 182.88 cm) ld1 ED Course: 09/13 22:52 Patient arrived in ED. ja2 22:59 Triage completed. ld1 22:59 Arm band placed on left wrist. ld1 23:09 Sridhar Roth MD is Attending Physician. rn 23:12 Meenakshi Goldsmith, DASH is Primary Nurse. sm5 23:20 Inserted saline lock: 20 gauge in right antecubital area, using aseptic technique. sm5 Blood collected. 23:27 XRAY Chest (1 view) In Process Unspecified. EDMS 23:31 Basic Metabolic Panel Sent. sm5 23:31 CBC with Diff Sent. sm5 23:58 Patient has correct armband on for positive identification. Bed in low position. Call vc1 light in reach. Side rails up X2. 09/14 01:13 No provider procedures requiring assistance completed. IV discontinued, intact, sm5 bleeding controlled, No redness/swelling at site. Pressure dressing applied. Administered Medications: 09/13 23:25 Drug: NS 0.9% 1000 ml Route: IV; Rate: 1000 ml; Site: right antecubital; sm5 09/14 01:14 Follow up: IV Status: Completed infusion; IV Intake: 1000ml 5 Intake: 01:14 IV: 1000ml; Total: 1000ml. 5 Outcome: 01:01 Discharge ordered by . rn 01:13 Discharged to home ambulatory, with family. [facility] 01:13 Condition: stable 01:13 Discharge instructions given to patient, family, Instructed on discharge instructions, Demonstrated understanding of instructions. 01:14 Patient left the ED. [facility] Signatures: Dispatcher [employer] EDMS Sridhar Roth MD MD rn Dibbern, Lauren RN RN ld1 Almita Downs Sarah RN RN sm5 Tita Mahajan RN RN vc1
--- NOTE | 2021-09-14 01:02 | EDPHYS ---
Physician Documentation [facility] Name: Jp Sun Age: 80 yrs Sex: Male : 1940 Arrival Date: 09/13/2021 Time: 22:52 Bed 5 Private MD: ED Physician Sridhar Roth HPI: 09/13 23:11 This 80 yrs old Male presents to ER via Ambulatory with complaints of TROUBLE rn SWALLOWING. 23:11 The patient's problem is reported as dysphagia, difficulty handling secretions. Onset: rn The symptoms/episode began/occurred 3 week(s) ago. Duration: The episodes are intermittent. Context: the episode(s) was witnessed, by a significant other, occurred at home, occurred while the patient was at rest. The symptoms are alleviated by nothing. The symptoms are aggravated by laying. Associated signs and symptoms: Pertinent negatives: abdominal pain, chest pain, shortness of breath. Severity of symptoms: At their worst the symptoms were moderate in the emergency department the symptoms have improved. The patient has experienced similar episodes in the past. The patient has been recently seen by a physician:. states had a 15 minute episode of coughing and couldn't clear mucous from throat. 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 Able to drink little bit at a time. Reports chronic allergies but doesn't take anything other that mucinex. No new infectious symptoms, just chronic allergies. No fever. Feels fine now. Denies sob.. Historical: - Allergies: 22:59 No Known Allergies; ld1 - PMHx: 22:59 Hypertension; TIA; Difficulty Swallowing; ld1 - PSHx: 22:59 None; ld1 - Immunization history:: Adult Immunizations up to date, Client reports receiving the 2nd dose of the Covid vaccine, Moderna, Pfizer. - Social history:: Smoking status: Patient denies any tobacco usage or history of. Patient/guardian denies using alcohol. - Family history:: not pertinent. - Hospitalizations: : No recent hospitalization is reported. ROS: 23:11 Constitutional: Negative for fever, chills Eyes: Negative for injury, pain, redness, rn and discharge, Neck: Negative for injury, pain, and swelling, Cardiovascular: Negative for chest pain, palpitations, and edema, Respiratory: Negative for shortness of breath, wheezing, and pleuritic chest pain, Abdomen/GI: Negative for abdominal pain, nausea, vomiting, diarrhea, and constipation, Back: Negative for injury and pain, MS/Extremity: Negative for injury and deformity, Skin: Negative for injury, rash, and discoloration, Neuro: Negative for headache, weakness, numbness, tingling, and seizure. Exam: 23:15 Constitutional: This is a well developed, well nourished patient who is awake, alert, rn and in no acute distress. Head/Face: Normocephalic, atraumatic. Eyes: Periorbital areas with no swelling, redness, or edema. ENT: dry MM, no stridor, no oral swelling Respiratory: No increased work of breathing, no retractions or nasal flaring. Skin: Warm, dry MS/ Extremity: Pulses equal, no cyanosis. Neurovascular intact. Full, normal range of motion. Equal circumference. Neuro: Ambulatory to room, + dysphasia and dysphagia noted Vital Signs: 22:55 BP 153 / 104; Pulse 85; Resp 18; Temp 98.1(TE); Pulse Ox 98% on R/A; Weight 88.45 kg; ld1 Height 6 ft. 0 in. (182.88 cm); Pain 0/10; 23:30 BP 156 / 97; Pulse 72; Resp 27; Pulse Ox 98% on R/A; vc1 09/14 00:00 BP 145 / 86; Pulse 71; Resp 24; Pulse Ox 99% on R/A; vc1 01:12 BP 148 / 72; Pulse 81; Resp 18; Pulse Ox 98% on R/A; sm5 09/13 22:55 Body Mass Index 26.45 (88.45 kg, 182.88 cm) ld1 MDM: 09/13 23:09 Patient medically screened. rn 09/14 00:52 Differential diagnosis: dehydration, dysphagia. rn 00:59 Differential diagnosis: dehydration. Data reviewed: vital signs, nurses notes. rn Counseling: I had a detailed discussion with the patient and/or guardian regarding: the historical points, exam findings, and any diagnostic results supporting the discharge/admit diagnosis, lab results, radiology results, the need for outpatient follow up, to return to the emergency department if symptoms worsen or persist or if there are any questions or concerns that arise at home. Response to treatment: the patient's symptoms have markedly improved after treatment, and as a result, I will discharge patient. Special discussion: I discussed with the patient/guardian in detail that at this point there is no indication for admission to the hospital. It is understood, however, that if the symptoms persist or worsen the patient needs to return immediately for re-evaluation. ED course: Patient markedly improved after IV hydration. Patient with known dysphagia and at times is going to be dehydrated. Had long conversation with patient and regarding possible feeding tube in the future if cannot stay hydrated or take his medication. I feel like today the dehydration played a role in the thickening of the secretions and inability to clear. Has not coughed once since he has been here, chest x-ray clear, no signs of aspiration. Patient resting comfortably and notes that even his speech has improved after hydration.. 09/13 23:09 Order name: CBC with Diff; Complete Time: 00:12 rn 09/13 23:09 Order name: Basic Metabolic Panel; Complete Time: 00:12 rn 09/13 23:09 Order name: IV Start; Complete Time: 23:31 rn 09/13 23:15 Order name: XRAY Chest (1 view) rn Administered Medications: 09/13 23:25 Drug: NS 0.9% 1000 ml Route: IV; Rate: 1000 ml; Site: right antecubital; sm5 09/14 01:14 Follow up: IV Status: Completed infusion; IV Intake: 1000ml [facility] Disposition Summary: 09/14/21 01:01 Discharge Ordered Location: Home rn Problem: an ongoing problem rn Symptoms: have improved rn Condition: Stable rn Diagnosis - Dehydration rn - Dysphasia and aphasia rn Followup: rn - With: Private Physician - When: As needed - Reason: Recheck today's complaints, Re-evaluation by your physician Discharge Instructions: - Discharge Summary Sheet rn - Dehydration, Elderly rn - Dysphagia rn - Thickening Liquids for Dysphagia Diet rn Forms: - Medication Reconciliation Form rn - Thank You Letter rn - Antibiotic rn case mgr - Prescription Opioid Use rn Signatures: Dispatcher [employer] Sridhar Amezquita MD MD rn Dibbern, Lauren RN RN brando1 Meenakshi Goldsmith RN RN sm5
[2021-09-14 01:21] VITALS: TEMP 98.1; O2SAT 98
[2021-09-14 01:23] VITALS: BP 148/72
--- NOTE | 2021-09-14 08:08 | RAD REPORT ---
EXAM DESCRIPTION: RAD - Chest Single View - 09/13/2021 11:27 pm CLINICAL HISTORY: COUGH COMPARISON: Portable March 2020 TECHNIQUE: AP portable chest image was obtained 09/13/2021 11:27 pm . FINDINGS: No focal mass or consolidation. Mildly prominent interstitial pattern is similar to the co mparison study. Heart and vasculature are normal. No measurable pleural effusion and no pneumothorax. No acute bony abnormality seen. No acute aortic findings suspected. IMPRESSION: No acute cardiopulmonary process. No significant change from comparison study.
== END 2021-09-14 01:14 | disposition home or self-care (01) ==
LOC: ER 22:48
DX: E86.0 Dehydration (principal); R47.01 Aphasia; I10 Essential (primary) hypertension; Z86.73 Personal history of transient ischemic attack (TIA), and cerebral infarction without residual deficits
CPT/HCPCS: 96361; 85025; 80048; 36415; 71045; 96360; 99284; J7030

== ENCOUNTER 2021-10-05 00:01 | Inpatient (IN) | payer OTHER ==
--- OUTSIDE RECORDS SUMMARY | 2021-10-05 00:07 | XMS REPORT | Continuity of Care Document ---
:1940 Author Organization [facility] t Address [address] [place] [place] [address] Care Team Providers Name Role Phone ZAHRAMelquiades Primary Care Physician Unavailable Tomas Attending Clinician Unavailable Farzana HAYDEN Attending Clinician Unavailable MELY LEMON Attending Clinician Unavailable Garo Yanes Attending Clinician Unavailable EMELINA Attending Clinician Unavailable Doctor Unassigned, Name Attending Clinician Unavailable Catracho HERNANDEZ L Attending Clinician Lab, Fam Pob I Attending Clinician Unavailable Farzana HAYDEN Admitting Clinician Unavailable MELY LEMON Admitting Clinician Unavailable Physician, Primary or Family Admitting Clinician Unavailabl e ZAHRA_R Admitting Clinician Unavailable Payers Payer Name Policy Type Policy Number Effective Date Expiration Date S ourmateo MEDICARE PART A \T\ [id number] 2007 B 00:00:00 [employer] COMMERCIAL [id number] 2013 OUT OF NETWORK 00:00:00 MEDICARE A B [id number] 2007 00:00:00 [employer] INDEMNITY NON [id number] 2013 CONTR 00:00:00 MEDICARE B-[place]: [id number] 2007 [employer] 00:00:00 [employer] (INDEMNITY) [id number] 2000 00:00:00 Problems Condition Condition Condition Status Onset Resolution Last Treating Co mments Source Name Details Category Date Date Treatment Clinician Date Ischemic Ischemic Disease Active 2019-0 Unive rs stroke stroke 818 ity of 00:00: [address] Allergies, Adverse Reactions, Alerts Allergy Allergy Status Severity Reaction(s) Onset Inactive Treating Comm ents Source Name Type Date Date Clinician No Known DA Active U 2019-0 [facility] [place] 00:[facility]: [address] No Known DA Active U 2019-0 [facility] - [place] 00:[facility]: [address] NO KNOWN Allergy Active [facility] NO KNOWN Drug Active Univers ALLERGIE Class ity of S [facility] Social History Social Habit Start Date Stop Date Quantity Comments Source Exposure to Not sure [facility]-CoV-2 [facility] (event) [place] Alcohol intake 2021-09-08 2021-09-08 Lifetime University of 00:00:00 00:00:[address] non-drinker [facility] (finding) [place] Tobacco use and 2021-08-16 2021-08-16 Never used Universit y of exposure 00:00:00 00:00:00 [facility] Sex Assigned At [birth year] Universit y of 00:00:00 00:00:00 [facility] Smoking Status Start Date Stop Date Source Never smoker [facility] Medications Ordered Filled Start Stop Current Ordering Indication Dosage Frequency Signature Comments Components Source Medication Medication Date Date Medication? Clinician (SIG) Name Name SERTraline 2020-08 Yes 125mg Take 125 Un teri 100 mg 2-29 mg by ity of tablet 16:16: mouth. [address] SERTraline 2020-08 Yes 125mg Take 125 Un teri 100 mg 2-29 mg by ity of tablet 16:16: mouth. [address] SERTraline 2020-08 Yes 125mg Take 125 Un teri 100 mg 2-29 mg by ity of tablet 16:16: mouth. [address] SERTraline 2020-08 Yes 125mg Take 125 Un teri 100 mg 2-29 mg by ity of tablet 16:16: mouth. [address] carvediloL 2020-08 Yes 25mg Take 25 mg U nivers 25 mg 2-29 by mouth. ity of tablet 16:16: [address] gabapentin 2020-08 Yes 400mg Take 400 Un teri 400 mg 2-29 mg by ity of capsule 16:16: mouth. [address] carvediloL 2020-08 Yes 25mg Take 25 mg U nivers 25 mg 2-29 by mouth. ity of tablet 16:16: [address] gabapentin 2020-08 Yes 400mg Take 400 Un teri 400 mg 2-29 mg by ity of capsule 16:16: mouth. [address] carvediloL 2020-08 Yes 25mg Take 25 mg U nivers 25 mg 2-29 by mouth. ity of tablet 16:16: [address] gabapentin 2020-08 Yes 400mg Take 400 Un teri 400 mg 2-29 mg by ity of capsule 16:16: mouth. [address] carvediloL 2020-08 Yes 25mg Take 25 mg U nivers 25 mg 2-29 by mouth. ity of tablet 16:16: [address] gabapentin 2020-08 Yes 400mg Take 400 Un teri 400 mg 2-29 mg by ity of capsule 16:16: mouth. [address] pantoprazol 2020-08 Yes Univer s e 40 mg EC 2-14 ity of tablet 00:00: [address] pravastatin 2020-08 Yes Univer s 40 mg 2-14 ity of tablet 00:00: [address] pantoprazol 2020-08 Yes Univer s e 40 mg EC 2-14 ity of tablet 00:00: [address] pravastatin 2020-08 Yes Univer s 40 mg 2-14 ity of tablet 00:00: [address] pantoprazol 2020-08 Yes Univer s e 40 mg EC 2-14 ity of tablet 00:00: [address] pravastatin 2020-08 Yes Univer s 40 mg 2-14 ity of tablet 00:00: [address] pantoprazol 2020-08 Yes Univer s e 40 mg EC 2-14 ity of tablet 00:00: [address] pravastatin 2020-08 Yes Univer s 40 mg 2-14 ity of tablet 00:00: [place] [facility] traMADoL 50 2020-08 Yes Univer s mg tablet 2-12 ity of 00:00: [facility] traMADoL 50 2020-08 Yes Univer s mg tablet 2-12 ity of 00:00: [place] [facility] traMADoL 50 2020-08 Yes Univer s mg tablet 2-12 ity of 00:00: [facility] traMADoL 50 2020-08 Yes Univer s [...] 1-22 ity of sublingual 00:00: [place] tablet [facility] nitroglycer 2020-08 Yes Univer s in [...] mg tablet 1-18 ity of 00:00: [place] [facility] losartan 50 2020-08 Yes Univer s mg tablet 1-18 ity of 00:00: [place] [facility] losartan 50 2020-08 Yes Univer s mg tablet 1-18 ity of 00:00: [facility] clopidogreL 2020-08 Yes Univer s 75 mg 0-21 ity of tablet 00:00: [facility] amLODIPine 2020-08 Yes Univers 5 mg tablet 0-21 ity of 00:00: [facility] clopidogreL 2020-08 Yes Univer s 75 mg 0-21 ity of tablet 00:00: [facility] amLODIPine 2020-08 Yes Univers 5 mg tablet 0-21 ity of 00:00: [facility] clopidogreL 2020-08 Yes Univer s 75 mg 0-21 ity of tablet 00:00: [facility] amLODIPine 2020-08 Yes Univers 5 mg tablet 0-21 ity of 00:00: [facility] clopidogreL 2020-08 Yes Univer s 75 mg 0-21 ity of tablet 00:00: [place] [facility] amLODIPine 2020-08 Yes Univers 5 mg tablet 0-21 ity of 00:00: [place] [facility] aspirin 81 2020- No 81mg QD Take [address] [facility] chewable 8-20 08-20 tablet (81 L ukes - tablet 00:00: 23:59 mg total) Medic al 00 :00 by mouth Center daily. amLODIPine Yes 10mg QD Take [address] (NORVASC) 5 8-19 by mouth Luke s - MG tablet 15:01: daily. Medica l [address] [place] gabapentin 2019-0 Yes 400mg QD Take [address] (NEURONTIN) 8-19 mg by [facility] - 400 MG 15:01: mouth Medical capsule 48 daily. Center carvediloL 0 Yes 25mg QD Take [address] (COREG) 25 8-19 by mouth [facility] - MG tablet 15:01: daily. Medica l 48 Center buPROPion 0 Yes 300mg QD Take [address] (WELLBUTRIN 8-19 mg by [facility] - XL) 300 MG 15:01: mouth Medica l 24 hr 48 daily. Center tablet sertraline 2019-0 Yes 125mg QD Take [address] (ZOLOFT) 8-19 mg by [facility] - 100 MG 15:01: mouth Medical tablet 48 daily. Center pantoprazol 2019-0 Yes 40mg QD Take 40 [...] Take [address] n (LIPITOR) 04-06 08- tablet (80 L ukes - 80 MG 00:00: 23:59 mg total) Medica l tablet 00 :00 by mouth Center nightly. Ditropan Ditropan Yes Elaina 1/[address] 9-05 [place] [facility] - 00[facility]: [facility] Testosteron Testosteron Yes Elaina [address] e Cypionate e Cypionate 1-03 [place] [facility] - 00:[facility]: [facility] Coreg Coreg Yes Elaina not [facility] defined [facility] Isosorbide Isosorbide Yes Elaina [address] Mononitrate Mononitrate [place] in the [facility] - ER ER morning [...] Zocor Yes Elaina [address] [facility] in the [facility] - evening [facility] l Outpati ent Clinics Lotrisone Lotrisone Yes Elaina APPLY [facility] TOPICALLY [facility] - TO AREA Memoria ONCE A DAY l AT BED Outpati TIME ent Clinics Amlodipine Amlodipine Yes Elaina [address] Besylate Besylate [place] [facility] Clinics Wellbutrin Wellbutrin Yes Elaina [address] XL XL [place] in the [facility] - morning [facility] Out[facility] ent Clinics Hydrochloro Hydrochloro Yes Elaina [address] thiazide thiazide [place] in the L ukes - morning [facility]oria l Outpati ent Clinics Vitamin Vitamin Yes Elaina not [facility] [id number] [place] defined [facility] - Acid Acid [facility]oria l [facility]ics Zoloft Zoloft Yes Elaina [address] [place] [facility] Pantoprazol Pantoprazol Yes Elaina [address] e Sodium e Sodium [place] - [facility] Nuvigil Nuvigil Yes Elaina [address] [place] in the [facility] - morning [facility] Omeprazole Omeprazole Yes Elaina [address] [place] [facility] Vital Signs Vital Name Observation Time Observation Value Comments Source HEIGHT 2020-04-04 00:00:00 182.9 cm WEIGHT 2020-04-04 00:00:00 97.9 kg Body height 2021-08-16 22:23:00 175.3 cm [facility] Body weight 2021-08-16 22:23:00 93.895 kg [facility] BMI 2021-08-16 22:23:00 30.57 kg/m2 [facility] HEIGHT 2020-04-04 00:00:00 182.9 cm WEIGHT 2020-04-04 00:00:00 97.9 kg Procedures Procedure Date / Time Performed Performing Clinician [facility] e EXTERNAL PROVIDER 2021-09-12 06:01:00 [facility] MEDICAL 2021-08-28 06:01:00 Doctor Unassigned, No [facility] RELEASE/CLEARANCE Name [facility] FORMS Plan of Care Planned Activity Planned Date Details Comments Source Future Scheduled 2021-04-[address] [facility] - Test 00:00:00 (Season Ended) [code = [facility] INFLUENZA VACCINE (Season Ended)] Future [...] 00:00:00 (1 of 1 - Medical Center [id number] PCV13) [code = PNEUMOCOCCAL 65+ YRS (1 of 1 - [id number] PCV13)] Future Scheduled 1992 SHINGLES VACCINES (1 [...] Type Clinicians Facility Department ID 2021-09-13 [facility] [id number] [facility] 12:50:58 [id number] [facility] 2021-09-13 Outpatient STLMLC STLC [id number] [facility] [facility] 12:29:13 [id number] [facility] 2021-09-13 Out[facility] geoalyciaZahra [facility] [id number] 12:24:25 , [place] [id number] [facility] 2021-09-13 Outpatient ZahraANTALIE [facility] [id number] 11:21:20 [place] [id number] [facility] 2021-09-01 Inpatient R CATRACHO [facility] [id number] Univers 15:41:48 ML venus [facility] [place] [facility] 2020-04-05 Inpatient ER BERSHAD, [facility] Neu[facility] [id number] [facility] 02:12:00 MADELYN 2020-01-19 Inpatient ESTELA YanesPM LABO [id number] [facility] 16:02:00 Sali [id number] [facility] [place] 2021-09-30 2021-09-30 Outpatient ERRASON_R [facility] [id number] [place] 07:32:00 07:32:00 [facility] 2021-09-12 2021-09-12 Orders Doctor OLIVIER [id number] Univers 00:00:00 00:00:00 Only Unassigned, GILBERTO [id number] ity of [place] [facility] [id number] Patel as [phone] [address] 2021-09-08 2021-09-08 [facility] [id number] Univers 14:45:00 14:45:00 ML [facility] 2021-09-08 2021-09-08 [facility] [id number] Univers 13:30:00 13:30:00 ML [id number] [facility] 2021-08-28 2021-08-28 Orders Doctor OLIVIER [id number] Univers 00:00:00 00:00:00 Only Unassigned, GILBERTO [id number] ity of [place] [facility] [id number] Patel as [phone] [address] 2021-08-26 2021-08-26 Outpatient ERICKSON_R [facility] [id number] - [place] 04:34:00 04:34:00 108 [facility] 2021-08-16 2021-08-16 [facility] [id number] Univers 16:15:00 16:43:15 Visit [facility] [id number] it [facility] [id number] Patel as BRANDON?BLEA [phone] [address] MEDICAL OFFICE BUILDING 2021-07-22 2021-07-22 Outpatient ERICKSON_R [facility] [id number] [place] 05:22:00 05:22:00 204 [facility] 2021-07-10 2021-07-10 Outpatient ERICKSON_R [facility] [id number] [place] 11:19:00 11:19:00 122 [facility] 2021-07-10 2021-07-10 Outpatient Coleman, [facility] [id number] 00:00:00 00:00:00 [place] [id number] [place] [id number] 2021-07-06 ambulatory STLMLC [facility] [id number] [facility] 2021-05-03 2021-05-03 [facility] [id number] [facility]00 [facility] 2021-04-28 2021-04-28 Outpatient ERICKSON_R [facility] [id number] [place] 04:22:00 04:22:00 910 [facility] 2021-04-28 2021-04-28 [facility] [id number]00 [facility] 2021-04-28 2021-04-28 Outpatient Zahra [facility] [id number] 00:00:00 00:00:00 [place] [id number] [place] [id number] 2021-04-18 2021-04-18 Outpatient ERICKSON_R [facility] [id number] [place] 01:12:00 01:12:00 831 [facility] 2021-03-14 2021-03-14 Outpatient ERICKSON_R [facility] [id number] [place] 12:57:00 12:57:00 727 [facility] 2021-01-13 2021-01-13 Outpatient ERICKSON_R [facility] [id number] [place] 02:36:00 02:36:00 528 [facility] 2021-01-10 2021-01-10 [facility] [id number] [facility]00 [facility] 2021-01-09 2021-01-09 Outpatient ERICKSON_R [facility] [id number] [place] 10:40:00 10:40:00 524 [facility] 2020-12-29 2020-12-29 Outpatient ERICKSON_R [facility] [id number] [place] 01:03:00 01:03:00 513 [facility] 2020-12-29 2020-12-29 Outpatient ERICKSON_R [facility] [id number] [place] 01:03:00 01:03:00 518 [facility] 2020-11-29 2020-11-29 Out[facility] [id number] [facility]00 [facility] 2020-11-24 2020-11-24 Outpatient ERICKSON_R [facility] [id number] [place] 01:02:00 01:02:00 408 [facility] 2020-10-15 2020-10-15 Outpatient ERICKSON_R [facility] [id number] [place] 01:02:00 01:02:00 227 [facility] 2020-10-13 2020-10-13 Outpatient ERICKSON_R [facility] [id number] [place] 09:17:00 09:17:00 225 [facility] 2020-10-10 2020-10-10 Outpatient ERICKSON_R [facility] [id number] [place] 03:46:00 03:46:00 222 [facility] 2020-10-10 2020-10-10 Out[facility] Coleman, [facility] [id number] 00:00:00 00:00:00 [place] [id number] [place] [id number] 2020-09-09 2020-09-09 Outpatient ERICKSON_R [facility] [id number] [place] 09:10:00 09:10:00 122 [facility] 2020-09-06 2020-09-06 Outpatient ERICKSON_R [facility] [id number] [place] 03:48:00 03:48:00 119 [facility] 2020-09-06 2020-09-06 Outpatient Zahra, [facility] [id number] 00:00:00 00:00:00 [place] [id number] [place] [id number] 2020-08-05 2020-08-05 Outpatient ERICKSON_R [facility] [id number] [place] 01:02:00 01:02:00 218 [facility] 2020-08-05 2020-08-05 Outpatient ERICKSON_R [facility] [id number] [place] 01:02:00 01:02:00 112 [facility] 2020-04-29 2020-04-29 [facility] [id number] 16:00:00 16:00:00 t Specialty/U Tonia kes - Specialty rology Memori a /Urology Clinic l Clinic Outpati ent Clinics 2020-04-29 2020-04-29 [facility] [id number] 13:00:00 13:00:00 t Specialty/U Tonia kes - Specialty rology Memori a /Urology Clinic l Clinic Outpati ent Clinics 2020-03-22 2020-03-22 Laboratory Lab, [facility] [id number] 14:05:14 14:25:14 Only [facility] [id number] [place] [id number] Professio [id number] nal 0[address] 2020-01-28 2020-01-28 Outpatient [facility] [id number] 13:15:00 13:15:00 t Specialty/U Tonia kes - Specialty rology Memori a /Urology Clinic l Clinic Outpati ent Clinics 2020-01-25 2020-01-25 [facility] [id number] 13:46:00 13:46:00 t Specialty/U Tonia kes - Specialty rology Memori a /Urology Clinic l Clinic Outpati ent Clinics 2020-01-23 2020-01-23 Outpatient Dabaghi, [facility] [id number] 09:30:00 09:30:00 Dav [id number] [facility] 2020-01-23 2020-01-23 Outpatient KARMEN Yanes SURG [id number] [facility] 09:30:00 09:30:00 [facility] [id number] [facility] 2019-12-28 2019-12-28 Outpatient Celestine Chew [id number] 13:30:00 13:30:00 t Specialty/U [place] - Specialty rology Memori a /Urology Clinic l Clinic Outpati ent Clinics Results Test Description Test Time Test Comments Results Result Sourc e Comments FL, ESOPH, SWALLOW 2020-04-06 MBS w/parish FINAL REPORT PATIENT FUNCTION, WITH 14:54:00 SLPReason for ID: [id number] CINE OR VIDEO exam:->dsphagia EXAMINATION: /aspiration/CVA Modified [...] MDReport Verified Date/Time: 04/06/2020 14:54:40 Reading Location: [address] Transitional Reading Room C METABOLIC PANEL [...] NOT 1092) ACCURATE CRE ATININE CLEARANCE IN SD EDICTING GLOMERULAR FILT RATION RATE. ESTIMATED GFR IS NOT APPLICABLE FOR DIALYSIS PATIENTS. [employer] Administrator ID - RAY HERNANDEZ [id number] 01:52:00 Test Item Value Reference Range Interpretation [...] failure, acidosis, acute neurological disease, and persistent tachyarrhythmia.[employer] Administrator ID - RAY LMR, BRAIN, WITHOUT [id number] 22:32:00Unlisted Reason for Exam - Click Yes [...] Date/Time: 04/05/2020 22:32:21 MR, MRA, BRAIN, WITHOUT [id number] 22:26:00Reason for exam:- >Ischemic Stroke EvaluationFINAL REPORT [...] is antegrade in both vertebral arteries. MRA [place]: There isno vessel occlusion, flow-limiting stenosis, or aneurysm in the intracranial carotid or vertebrobasilar arterial circulations. IMPRESSION: Negative intra- and extracranial MRAs. Signed: Eteinne Mancia Verified Date/Time: 04/05/2020 22:26:03 MR, MRA, NECK, WITHOUT IV [id number] 22:26:00Reason for exam:->Ischemic Stroke EvaluationFINAL REPORT MRA head and neck without contrast. CLINICAL HISTORY: Stroke, follow up. Ischemic stroke evaluation. COMPARISON: None. TECHNIQUE: Two- and three- dimensional bzho-ov-zclnno MRA images of the intra- and extracranial carotid and vertebral arterial circulations were obtained, from which maximal intensity projection 3-D reconstructions were created. FINDINGS: MRA neck:There is no vessel occlusion or NASCET-quantifiable stenosis in the extracranial carotid or vertebral arterial circulations. Flow is antegrade in both vertebral arteries. MRA [place]: There isno vessel occlusion, flow-limiting stenosis, or aneurysm in the intracranial carotid or vertebrobasilar arterial circulations. IMPRESSION: Negative intra- and extracranial MRAs. Signed: Etienne Mancia Verified Date/Time: 04/05/2020 22:26:03 HEMOGLOBIN [id number] 11:32:00 Test Item Value Reference Range Interpretation Comments HEMOGLOBIN A1C (BEAKER) (test code = 5.5 % 4.3-6.1 368) RAD, CHEST, 1 VIEW, NON [id number] 07:30:00Reason for exam:- >baselineShould this be performed at the bedside?->YesFINAL REPORT CLINICAL HISTORY: baseline TECHNIQUE: 1 view of the chest. ANTIONETTE RISON: None IMPRESSION: There are no focal infiltrates or effusions. Incidental note is made of an azygos lobe. The cardiomediastinal silhouette is magnified by technique. The osseous structures appearintact. Signed: Lisa Geronimo MDReport Verified Date/Time: 04/05/2020 07:30:03 Reading Location: [facility] Radiology Reading Room HEPATIC FUNCTION [id number] 07:17:00 Test Item Value Reference Range Interpretation [...] (test code = 15 U/L 6-55 347) [employer] Administrator ID - DBFOLATE, [id number] 06:47:00 Test Item Value Reference Range Interpretation Comments FOLATE (BEAKER) (test code = 362) > ng/mL >=7.00 [employer] Administrator ID - EDASIVITAMIN [id number] 05:50:00 Test Item Value Reference Range Interpretation Comments VITAMIN B12 (BEAKER) (test code = 620 pg/mL 213-816 774) [employer] Administrator ID - EDASITSH/FREE T4 IF [id number] 05:50:00 Test Item Value Reference Range Interpretation Comments THYROID STIMULATING HORMONE 0.513 uIU/mL 0.350-4.940 (BEAKER) (test code = 772) [employer] Administrator ID - EDASITROPONIN [id number] 04:27:00 Test Item Value Reference Range Interpretation [...] failure, acidosis, acute neurological disease, and persistent tachyarrhythmia.[employer] Administrator ID - EDASILIPID [id number] 04:24:00 Test Item Value Reference Range Interpretation [...] Borderline 130-159 High 160-189 Very High >=190 [employer] Administrator ID - EDASIBASIC METABOLIC [id number] 04:24:00 Test Item Value Reference Range Interpretation [...] S NOT APPLICABLE FOR DIALYSIS PATIEN TS. [employer] Administrator ID - [id number] 04:12:00 Test Item Value Reference Range Interpretation Comments PARTIAL THROMBOPLASTIN TIME 30.4 seconds 22.5-36.0 (BEAKER) (test code = 760) PROTHROMBIN [id number] 04:11:00 Test Item Value Reference Range Interpretation [...] mechanical heart valves.CBC W/PLT COUNT & AUTO [id number] 04:07:00 Test Item Value Reference Range Interpretation [...] 0-1 PERCENT (BEAKER) (test code = 2801) [id number] 07:24:00 Test Item Value Reference Range Interpretation Comments ACT-ISTAT (test code = ACTI) 208 SEC 74-137 H BASIC METABOLIC [id number] 08:47:00 Test Item Value Reference Range Interpretation [...] 8.7 MG/DL 8.4-10.2 N CA) CBC W/AUTO [id number] 08:17:00 Test Item Value Reference Range Interpretation [...] 0.00 K/mm3 0.0-0.1 N NRBC#) BASIC METABOLIC [id number] 06:47:00 Test Item Value Reference Range Interpretation [...] 0-189 mg/dL VERY HIGH...... ...>/= 190 mg/dL [id number] 06:47:00 Test Item Value Reference Range Interpretation Comments MAGNESIUM (test code = MAG) 1.9 MG/DL 1.6-2.3 N PROTHROMBIN [id number] 06:44:00 Test Item Value Reference Range Interpretation [...] syste payal embolism. 3.0 - 4.5 PTT [id number] 06:44:00 Test Item Value Reference Range Interpretation Comments PTT ACTIVATED (test code = APTT) 33.7 SECONDS 25.1-36.5 N BASIC METABOLIC [id number] 06:36:00 Test Item Value Reference Range Interpretation [...] LDL (test MG/DL 0-99 code = LDL) [id number] 06:36:00 Test Item Value Reference Range Interpretation Comments MAGNESIUM (test code = MAG) 1.9 MG/DL 1.6-2.3 N BASIC METABOLIC [id number] 06:35:00 Test Item Value Reference Range Interpretation [...] LDL (test MG/DL 0-99 code = LDL) [id number] 06:35:00 Test Item Value Reference Range Interpretation Comments MAGNESIUM (test code = MAG) 1.9 MG/DL 1.6-2.3 N BASIC METABOLIC [id number] 06:34:00 Test Item Value Reference Range Interpretation [...] LDL (test code = LDL) MG/DL 0-99 [id number] 06:34:00 Test Item Value Reference Range Interpretation Comments MAGNESIUM (test code = MAG) MG/DL 1.6-2.3 BASIC METABOLIC [id number] 06:32:00 Test Item Value Reference Range Interpretation [...] LDL (test code = LDL) MG/DL 0-99 [id number] 06:32:00 Test Item Value Reference Range Interpretation Comments MAGNESIUM (test code = MAG) MG/DL 1.6-2.3 CBC W/AUTO [id number] 06:20:00 Test Item Value Reference Range Interpretation [...] K/mm3 0.0-0.1 N NRBC#) Coronavirus 2018 nCoV [id number] 18:32:00 Test Item Value Reference Range Interpretation [...]
--- NOTE | 2021-10-05 00:33 | EDPHYS ---
Physician Documentation [facility] Name: Jp Sun Age: 80 yrs Sex: Male : 1940 Arrival Date: 10/05/2021 Time: 00:02 Bed 23 Private MD: ED Physician Israel Frias HPI: 10/05 00:26 This 80 yrs old Male presents to ER via Wheelchair with complaints of shannon Difficulty Swallowing. 00:26 The patient presents with dysphagia. The patient describes throat pain as constant. shannon Onset: The symptoms/episode began/occurred 1 year(s) ago. Severity of symptoms: At their worst the symptoms were mild, moderate, in the emergency department the symptoms are unchanged. Modifying factors: The symptoms are alleviated by. Associated signs and symptoms: The patient has no apparent associated signs or symptoms. The patient has not experienced similar symptoms in the past. Historical: - Allergies: 00:12 No Known Allergies; tw5 - PMHx: 00:12 Difficulty swallowing; Hypertension; TIA; tw5 - Immunization history:: Flu vaccine is up to date. - Social history:: Smoking status: Patient denies any tobacco usage or history of. ROS: 00:27 Constitutional: Negative for fever, chills, and weight loss, Eyes: Negative for injury, shannon pain, redness, and discharge, Neck: Negative for injury, pain, and swelling, Cardiovascular: Negative for chest pain, palpitations, and edema, Respiratory: Negative for shortness of breath, cough, wheezing, and pleuritic chest pain, Abdomen/GI: Negative for abdominal pain, nausea, vomiting, diarrhea, and constipation, Back: Negative for injury and pain, : Negative for injury, bleeding, discharge, and swelling, MS/Extremity: Negative for injury and deformity, Skin: Negative for injury, rash, and discoloration, Neuro: Negative for headache, weakness, numbness, tingling, and seizure, Psych: Negative for depression, anxiety, suicide ideation, homicidal ideation, and hallucinations, Allergy/Immunology: Negative for hives, rash, and allergies, Endocrine: Negative for neck swelling, polydipsia, polyuria, polyphagia, and marked weight changes, Hematologic/Lymphatic: Negative for swollen nodes, abnormal bleeding, and unusual bruising. 00:27 ENT: Positive for dysphagia. Exam: 00:27 Constitutional: This is a well developed, well nourished patient who is awake, alert, shannon and in no acute distress. Head/Face: Normocephalic, atraumatic. Eyes: Pupils equal round and reactive to light, extra-ocular motions intact. Lids and lashes normal. Conjunctiva and sclera are non-icteric and not injected. Cornea within normal limits. Periorbital areas with no swelling, redness, or edema. ENT: Nares patent. No nasal discharge, no septal abnormalities noted. Tympanic membranes are normal and external auditory canals are clear. Oropharynx with no redness, swelling, or masses, exudates, or evidence of obstruction, uvula midline. Mucous membranes moist. Neck: Trachea midline, no thyromegaly or masses palpated, and no cervical lymphadenopathy. Supple, full range of motion without nuchal rigidity, or vertebral point tenderness. No Meningismus. Chest/axilla: Normal chest wall appearance and motion. Nontender with no deformity. No lesions are appreciated. Cardiovascular: Regular rate and rhythm with a normal S1 and S2. No gallops, murmurs, or rubs. Normal PMI, no JVD. No pulse deficits. Respiratory: Lungs have equal breath sounds bilaterally, clear to auscultation and percussion. No rales, rhonchi or wheezes noted. No increased work of breathing, no retractions or nasal flaring. Abdomen/GI: Soft, non-tender, with normal bowel sounds. No distension or tympany. No guarding or rebound. No evidence of tenderness throughout. Back: No spinal tenderness. No costovertebral tenderness. Full range of motion. Male : Normal genitalia with no discharge or lesions. Skin: Warm, dry with normal turgor. Normal color with no rashes, no lesions, and no evidence of cellulitis. MS/ Extremity: Pulses equal, no cyanosis. Neurovascular intact. Full, normal range of motion. Neuro: Awake and alert, GCS 15, oriented to person, place, time, and situation. Cranial nerves II-XII grossly intact. Motor strength 5/5 in all extremities. Sensory grossly intact. Cerebellar exam normal. Normal gait. Psych: Awake, alert, with orientation to person, place and time. Behavior, mood, and affect are within normal limits. 01:45 ECG was reviewed by the Attending Physician. [facility] Vital Signs: 00:09 Pulse 82; Resp 18; Temp 97.7(O); Pulse Ox 98% on R/A; Weight 86.18 kg; Height 5 ft. 11 tw5 in. (180.34 cm); Pain 0/10; 00:09 BP 122 / 80; tw5 01:19 BP 153 / 93; Pulse 78; Resp 12 S; Pulse Ox 98% on R/A; Pain 0/10; al4 02:30 BP 149 / 90; Pulse 82; Resp 14 S; Pulse Ox 95% on R/A; al4 03:00 BP 148 / 91; Pulse 81; Resp 14 S; Pulse Ox 94% on R/A; al4 03:30 BP 142 / 94; Pulse 82; Resp 16 S; Pulse Ox 94% on R/A; Pain 0/10; al4 00:09 Body Mass Index 26.50 (86.18 kg, 180.34 cm) tw5 MDM: 00:18 Patient medically screened. shannon 00:29 Differential diagnosis: gastroesophageal reflux disease, upper respiratory infection. shannon Data reviewed: vital signs, nurses notes, lab test result(s), EKG, radiologic studies, plain films, ultrasound. 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 Test interpretation: by ED physician or midlevel provider: ECG, plain radiologic studies. Counseling: I had a detailed discussion with the patient and/or guardian regarding: the historical points, exam findings, and any diagnostic results supporting the discharge/admit diagnosis, lab results, radiology results, the need for further work-up and treatment in the hospital. 10/05 00:25 Order name: Basic Metabolic Panel; Complete Time: [facility] 10/05 00:25 Order name: CBC with Diff; Complete Time: [facility] 10/05 00:25 Order name: LFT's; Complete Time: shannon 10/05 00:25 Order name: Magnesium; Complete Time: [facility] 10/05 00:25 Order name: NT PRO-BNP; Complete Time: [facility] 10/05 00:25 Order name: PT-INR; Complete Time: 01:08 shannon 10/05 00:25 Order name: Troponin HS; Complete Time: [facility] 10/05 00:25 Order name: XRAY Chest (1 view) [facility] 10/05 00:25 Order name: SARS-COV-2 RT PCR (Document "Date of Onset" if Symptomatic) [facility] 10/05 00:25 Order name: US Abdomen Complete [facility] 10/05 06:00 Order name: Urinalysis [facility] 10/05 07:36 Order name: US [facility] 10/05 00:25 Order name: EKG; Complete Time: 00:26 [facility] 10/05 00:25 Order name: Cardiac monitoring; Complete Time: : [facility] 10/05 00:25 Order name: EKG - Nurse/Tech; Complete Time: 01: [facility] 10/05 00:25 Order name: IV Saline Lock; Complete Time: 00:43 [facility] 10/05 00:25 Order name: Labs collected and sent; Complete Time: : [facility] 10/05 00:25 Order name: O2 Per Protocol; Complete Time: 01: [facility] 10/05 00:25 Order name: O2 Sat Monitoring; Complete Time: 01:07 [facility] EC:45 Rate is 78 beats/min. Rhythm is regular. QRS [place] is Normal. NM interval is normal. QRS shannon interval is normal. QT interval is normal. No Q waves. T waves are Normal. No ST changes noted. Clinical impression: NSR w/ Non-specific ST/T Changes and No evidence of ischemia. Interpreted by me. Reviewed by me. Administered Medications: 04:02 Discontinued: NS 0.9% 1000 ml IV at 125 ml/hr continuous al4 01:24 Drug: NS 0.9% 500 ml Route: IV; Rate: bolus; Site: right antecubital; al4 04:01 Follow up: IV Status: Completed infusion; IV Intake: 500ml al4 01:24 Drug: NS 0.9% 1000 ml Route: IV; Rate: 125 ml/hr; Site: right antecubital; al4 01:27 Drug: Pepcid (famotidine) 20 mg Route: IVP; Rate: bolus; Infused Over: 2 mins; Site: al4 right antecubital; 02:00 Follow up: Response: No adverse reaction al4 Disposition Summary: 10/05/21 00:32 Hospitalization Ordered Hospitalization Status: Inpatient Admission shannon Provider: Stan Gore cha Condition: Stable shannon Problem: new shannon Symptoms: have improved shannon Bed/Room Type: Standard shannon Location: [facility] ER HOLD(10/05/21 02:28) eb1 Room Assignment: ERHOLD-(10/05/21 02:28) eb1 Diagnosis - Dysphagia shannon - Cough shannon - Unspecified kidney failure - insufficency shannon - Anemia, unspecified shannon Forms: - Medication Reconciliation Form shannon - SBAR form shannon Signatures: Dispatcher [employer] EDIsrael Trejo MD MD cha Attema, Lee, LIGHTING DIRECTOR-C LIGHTING DIRECTOR-Cla1 Rosalinda Kothari RN RN eb1 Luz Rivas tw5 Brown Zaldivar4 Corrections: (The following items were deleted from the chart) 02:28 00:32 Telemetry/MedSurg (Inpatient) shannon eb1 02:28 00:32 shannon eb1
--- NOTE | 2021-10-05 00:33 | ER ---
Nurse's Notes [facility] Name: Jp Sun Age: 80 yrs Sex: Male : 1940 Arrival Date: 10/05/2021 Time: 00:02 Bed 23 Private MD: Diagnosis: Dysphagia;Cough;Unspecified kidney failure-insufficency;Anemia, unspecified Presentation: 10/05 00:09 Chief complaint: Spouse and/or significant other states: "He has been seen for this. tw5 They keep saying he needs a feeding tube but they just keep wanting to send him for more and more tests. That just means more and more days that he is chocking. He cannot keep anything down without chocking on it. It seems to be getting worse.". Coronavirus screen: Vaccine status: Patient reports receiving the 2nd dose of the covid vaccine. [employer]. Ebola Screen: Patient negative for fever greater than or equal to 101.5 degrees Fahrenheit, and additional compatible Ebola Virus Disease symptoms Patient denies exposure to infectious person. Patient denies travel to an Ebola-affected area in the 21 days before illness onset. Initial Sepsis Screen: Does the patient meet any 2 criteria? No. Patient's initial sepsis screen is negative. Does the patient have a suspected source of infection? No. Patient's initial sepsis screen is negative. Risk Assessment: Do you want to hurt yourself or someone else? Patient reports no desire to harm self or others. Onset of symptoms is unknown. 00:09 Method Of Arrival: Wheelchair tw5 00:09 Acuity: FRANCISCO 3 tw5 Triage Assessment: 00:12 General: Appears in no apparent distress. Behavior is calm, cooperative, appropriate tw5 for age. Pain: Denies pain. Historical: - Allergies: 00:12 No Known Allergies; tw5 - PMHx: 00:12 Difficulty swallowing; Hypertension; TIA; tw5 - Immunization history:: Flu vaccine is up to date. - Social history:: Smoking status: Patient denies any tobacco usage or history of. Screenin:16 Abuse screen: Denies threats or abuse. Nutritional screening: Difficulty al4 chewing/swallowing? Yes. Tuberculosis screening: No symptoms or risk factors identified. Fall Risk No fall in past 12 months (0 pts). IV access (20 points). Ambulatory Aid- None/Bed Rest/Nurse Assist (0 pts). Gait- Normal/Bed Rest/Wheelchair (0 pts) Mental Status- Oriented to own ability (0 pts). Total Burnham Fall Scale indicates No Risk (0-24 pts). Assessment: 01:39 General: Appears in no apparent distress. comfortable, Behavior is calm, cooperative, al4 patient reports difficulty swallowing that has become progressively worse. states that they decided to come to the ED tonight because the patient could not stop coughing + choking and could not keep any thing down. Pain: Denies pain. Neuro: Level of Consciousness is awake, alert, obeys commands, Oriented to person, place, time, situation. Cardiovascular: Capillary refill < 3 seconds Patient's skin is warm and dry. Respiratory: Airway is patent Respiratory effort is even, unlabored, Respiratory pattern is regular, symmetrical. GI: No signs and/or symptoms were reported involving the gastrointestinal system. : EENT: Reports difficulty swallowing "this has been going on for awhile". Derm: No signs and/or symptoms reported regarding the dermatologic system. Musculoskeletal: Range of motion: intact in all extremities. 02:30 Reassessment: Patient and/or family updated on plan of care and expected duration. Pain al4 level reassessed. Patient is alert, oriented x 3, equal unlabored respirations, skin warm/dry/pink. 03:28 Reassessment: Patient and/or family updated on plan of care and expected duration. Pain al4 level reassessed. Patient is alert, oriented x 3, equal unlabored respirations, skin warm/dry/pink. 04:01 Reassessment: Report given to DASH Arrieta. al4 05:00 Reassessment: stated no need for swallow study bc of the patients history of issue al4 and the need for patient to be NPO. Vital Signs: 00:09 Pulse 82; Resp 18; Temp 97.7(O); Pulse Ox 98% on R/A; Weight 86.18 kg; Height 5 ft. 11 tw5 in. (180.34 cm); Pain 0/10; 00:09 BP 122 / 80; tw5 01:19 BP 153 / 93; Pulse 78; Resp 12 S; Pulse Ox 98% on R/A; Pain 0/10; al4 02:30 BP 149 / 90; Pulse 82; Resp 14 S; Pulse Ox 95% on R/A; al4 03:00 BP 148 / 91; Pulse 81; Resp 14 S; Pulse Ox 94% on R/A; al4 03:30 BP 142 / 94; Pulse 82; Resp 16 S; Pulse Ox 94% on R/A; Pain 0/10; al4 00:09 Body Mass Index 26.50 (86.18 kg, 180.34 cm) tw5 ED Course: 00:02 Patient arrived in ED. kc5 00:12 Triage completed. tw5 00:12 Arm band placed on left wrist. tw5 00:17 Israel Frias MD is Attending Physician. shannon 00:30 Stan Gore MD is Hospitalizing Provider. shannon 00:37 XRAY Chest (1 view) In Process Unspecified. EDMS 00:42 Initial lab(s) drawn, by me, sent to lab. Inserted saline lock: 20 gauge in right lt3 antecubital area, using aseptic technique. 01:06 Troponin HS Sent. mk 01:06 NT PRO-BNP Sent. mk 01:06 Magnesium Sent. mk 01:06 LFT's Sent. mk 01:06 CBC with Diff Sent. mk 01:06 Basic Metabolic Panel Sent. mk 01:16 Patient has correct armband on for positive identification. Bed in low position. Call al4 light in reach. Side rails up X2. Adult w/ patient. 01:38 Brown Zaldivar is Primary Nurse. al4 01:39 SARS-COV-2 RT PCR (Document "Date of Onset" if Symptomatic) Sent. al4 03:50 No provider procedures requiring assistance completed. Patient admitted, IV remains in al4 place. Administered Medications: 04:02 Discontinued: NS 0.9% 1000 ml IV at 125 ml/hr continuous al4 01:24 Drug: NS 0.9% 500 ml Route: IV; Rate: bolus; Site: right antecubital; al4 04:01 Follow up: IV Status: Completed infusion; IV Intake: 500ml al4 01:24 Drug: NS 0.9% 1000 ml Route: IV; Rate: 125 ml/hr; Site: right antecubital; al4 01:27 Drug: Pepcid (famotidine) 20 mg Route: IVP; Rate: bolus; Infused Over: 2 mins; Site: al4 right antecubital; 02:00 Follow up: Response: No adverse reaction al4 Intake: 04:01 IV: 500ml; Total: 500ml. al4 Outcome: 00:32 Decision to Hospitalize by Provider. shannon 03:50 Admitted to ER Hold. Please see [facility] for further documentation. al4 03:50 Condition: stable 03:50 Instructed on the need for admit, Demonstrated understanding of instructions. 11:04 Patient left the ED. Signatures: Dispatcher [employer] EDIL Israel Frias MD MD cha Smirch, Shelby, RN RN Luz Rivas tw5 Lelo Duque kc5 Brown Zaldivar al4 Catherine Franco lt3 Anne Grajeda, RN RN Corrections: (The following items were deleted from the chart) 03:28 02:30 Reassessment: Patient and/or family updated on plan of care and expected al4 duration. Pain level reassessed. al4
[2021-10-05] MEDS ORDERED: NA CHLORIDE 0.9% 500 ML ONE (00:51)
[2021-10-05] MEDS ORDERED: FAMOTIDINE 20 MG/2 ML VIAL IV ONE (00:51)
[2021-10-05] MEDS ORDERED: NA CHLORIDE 0.9% 1,000 ML ONE (00:51)
[2021-10-05 01:03] LABS: Protime INR 1.3
[2021-10-05 01:05] LABS: Absolute Lymphocytes (CBC) 1.1 K/uL (0.7-4.9); Hematocrit 35.2 % (39.6-49.0); Lymphocytes % 11.2 % (15.3-44.8); MPV 8.1 fL (7.6-11.3); RBC Red Blood Cell Count 4.11 M/uL (4.33-5.43)
[2021-10-05 01:16] LABS: Albumin 3.5 g/dL (3.4-5.0); Bilirubin Direct 0.2 mg/dL (0-0.2); Bilirubin Total 0.6 mg/dL (0.2-1.0); Magnesium 1.9 mg/dL (1.8-2.4); Potassium 3.7 mmol/L (3.5-5.1); Protein, Total 6.5 g/dL (6.4-8.2); Troponin High Sensitivity 44.8 pg/mL (<58.9)
--- NOTE | 2021-10-05 01:23 | P.HP ---
Certification for Inpatient Patient admitted to: Inpatient With expected LOS: >2 Midnights Patient will require the following post-hospital care: None Practitioner: I am a practitioner with admitting privileges, knowledge of patient current condition, hospital course, and medical plan of care. Services: Services provided to patient in accordance with Admission requirements found in Title 42 Section 412.3 of the Code of Federal Regulations Patient History Date of Service: 10/05/21 Reason for admission: Dysphagia History of Present Illness: 80-year-old male with history of hypertension, hyperlipidemia, dysphagia presents emergency department for worsening dysphagia. Patient had MRI on 09/05/2021 which demonstrated no acute intracranial abnormalities, had MBS on 09/07/2021 and is concurrently being evaluated by neurology, ENT and GI for his dysphagia. No formal diagnosis at this time they are working on ruling out myasthenia gravis. Patient has been in the process of attempting to receive outpatient PEG tube but over the course of the last few days his swelling has gotten significantly worse, he is not able to take any of his medications having difficulty with his secretions and thickened liquids. For that reason he was brought to the emergency department for evaluation. His labs were significant for hemoglobin 1.6 medical 35.2 chloride 112 BUN 28 creatinine 1.45 GFR 47, patient with stable CKD 3. Covid test pending patient had abdominal ultrasound which demonstrated a small liver cyst and mild left hydronephrosis. ED provider wishes to admit for further evaluation and management of dysphagia, possible PEG tube placement with GI. Allergies No Known Allergies Allergy (Verified 02/03/13 07:23) Home Medications: Bupropion *Xl* [Wellbutrin XL*] 150 mg PO DAILY 02/03/13 Cholecalciferol (Vitamin D3) [Vitamin D 1000 Iu Tab*] 2,000 unit PO DAILY 02/03/13 Fluoxetine HCl [Prozac*] 40 mg PO DAILY 02/03/13 Multivitamin [Daily Multivitamin] 1 each PO DAILY 02/03/13 Nebivolol HCl [Bystolic*] 10 mg PO DAILY 02/03/13 Nitroglycerin [Nitrostat*] 0.4 mg SL 02/03/13 Omeprazole [Prilosec] 40 mg PO DAILY 02/03/13 Simvastatin [Zocor*] 20 mg PO BEDTIME 02/03/13 Hydroxyzine HCl [Atarax] 5 mg PO DAILY 02/04/13 - Past Medical/Surgical History Diabetic: No -: hep cresolved -: high cholesterol -: renal stones -: Arrythmias -: Hypertension -: foot surgery9 bone spurs Psychosocial/ Personal History: Patient lives at home with adult children - Family History Family History: Reviewed- Non-Contributory - Social History Smoking Status: Never smoker Alcohol use: No CD- Drugs: No Caffeine use: Yes Place of Residence: Home Review of Systems General: Weakness, Malaise Neurological: Other (Dysphagia) Physical Examination - Physical Exam General: Alert, In no apparent distress, Oriented x3 HEENT: Atraumatic, PERRLA, Mucous membr. moist/pink, EOMI, Sclerae nonicteric Neck: Supple, 2+ carotid pulse no bruit, No LAD, Without JVD or thyroid abnormality Respiratory: Clear to auscultation bilaterally, Normal air movement Cardiovascular: Regular rate/rhythm, Normal S1 S2 Capillary refill: <2 Seconds Gastrointestinal: Normal bowel sounds, No tenderness Musculoskeletal: No tenderness Integumentary: No rashes Neurological: Normal speech, Normal strength at 5/5 x4 extr, Normal tone, Normal affect - Studies Laboratory Data (last 24 hrs) 10/05/21 00:40: PT 15.0 H, INR 1.30 10/05/21 00:40: WBC 10.00, Hgb 11.6 L, Hct 35.2 L, Plt Count 201 10/05/21 00:40: Sodium 143, Potassium 3.7, BUN 28 H, Creatinine 1.45 H, Glucose 94, Magnesium 1.9, Total Bilirubin 0.6, AST 16, ALT 17, Alkaline Phosphatase 84 Assessment and Plan - Plan Assessment: Dehydration, dysphagia Hypertension Hyperlipidemia CKD 3 Plan: Dehydration, dysphagia: Patient with progressive dysphagia over the course of the last few months significantly worse over the course last 2 days unable to tolerate his oral medications with thickened liquids at this time. Reports he has been in the process of attempting to receive PEG tube with GI, also was working with neurology and ENT to identify the cause of the dysphagia. Family reports they are working on ruling out myasthenia gravis and was post to have lab work but this was not completed on outpatient basis. Plan on admission, IV fluids with consult to GI and neurology possible PEG tube placement. Hypertension: Hold oral medications at this time, provide with IV as needed medications Hyperlipidemia: Restart meds when appropriate CKD 3: Continue fluids, stable. DVT PPX: SCD Code status: Full Discharge Plan: Home Plan to discharge in: 48 Hours - Advance Directives Does patient have a Living Will: No Does patient have a Durable POA for Healthcare: No - Code Status/Comfort Care Code Status Assessed: Yes (Full code) Critical Care: No Time Spent Managing Pts Care (In Minutes): 55
[2021-10-05] MEDS ORDERED: D5 0.45 NS 1,000 ML IV ONE (03:55)
[2021-10-05] MEDS: D5 0.45 NS 1,000 ML IV SCH ×2 (04:00→11:25)
[2021-10-05 05:34] VITALS: BMI 27.3
[2021-10-05 05:57] LABS: Urine Appearance CLEAR (Clear); Urine Bilirubin NEGATIVE (Negative); Urine Blood NEGATIVE (Negative); Urine Color YELLOW (Yellow); Urine Glucose NEGATIVE (Negative); Urine Protein NEGATIVE (Negative); Urine Specific Gravity 1.015 (1.005-1.030); Urine Urobilinogen 0.2 mg/dL (0.2-1.0)
[2021-10-05 06:00] LABS: Urine Microscopic Reflex NO UMIC
--- NOTE | 2021-10-05 07:36 | RAD REPORT ---
EXAM DESCRIPTION: US - Abdomen Exam Complete - 10/05/2021 1:28 am CLINICAL HISTORY: Abdominal pain COMPARISON: Barium Swallow Modified dated 09/07/2021 FINDINGS: No aortic aneurysm. Increased echogenicity of the liver suggesting hepatic steatosis. Anechoic, simple cyst in the left h epatic lobe measuring 3 cm. No follow-up is required. The portal vein is patent. The IVC at the level of the liver is unremarkable. No ascites. The gallbladder is unremarkable. No pericholecystic fluid, wall thickening, or gallstones identified. No biliary ductal dilatation. The pancreas was grossly unremarkable. The right kidney measures 9.5 cm normal echotexture. No hydronephrosis. No suspicious masses. The left kidney measures 9.4 cm with a normal echotexture. Mild left hydronephrosis. No suspicious ma sses. The spleen is unremarkable. IMPRESSION: 1. Mild left-sided hydronephrosis. Etiology unclear. 2. Hepatic steatosis with simple hepatic cyst.
--- NOTE | 2021-10-05 07:36 | RAD REPORT ---
EXAM DESCRIPTION: RAD - Chest Single View - 10/05/2021 12:37 am CLINICAL HISTORY: COUGH COMPARISON: Chest Single View dated 09/13/2021; Chest Single View dated 04/04/2020; Abdomen 1 View ([facility]) dated 02/03/2020; Abdomen 1 View ([facility]) dated 06/20/2018 FINDINGS: Lines: None. Lungs: No evidence of edema or pneumonia. Pleural: No significant pleural effusions or pneumothorax. Cardiac: The heart size is within normal limits. Bones: No acute fractures. Other: IMPRESSION: No acute cardiopulmonary disease.
[2021-10-05] MEDS ORDERED: KCL 20 MEQ/100 mL IVPB 100 ML IV ONE (08:10)
[2021-10-05] MEDS ORDERED: KCL 20 MEQ/100 mL IVPB 20 MEQ/100 ML BAG IV SCH (09:00)
[2021-10-05] MEDS ORDERED: Ringers Lactate 1,000 ML IV ONE (09:38)
[2021-10-05] MEDS ORDERED: LIDOCAINE 1% MPF 5 ML VIAL ONE (09:50)
[2021-10-05] MEDS ORDERED: propofoL 200 MG/20 ML VIAL IV ONE (09:50)
--- NOTE | 2021-10-05 11:52 | P.PN ---
Subjective Date of Service: 10/05/21 Chief Complaint: Dysphagia Subjective: No new changes (Seen this morning, really worried about his dysphagia Patient spouse already knows of possible plan for PEG tube GI discussed with, plan for EGD and PEG tube placement) Physical Examination - Vital Signs Temperature: 97.7 F Blood Pressure: 132/93 Pulse: 73 Respirations: 16 Pulse Ox (%): 94 - Studies Laboratory Data (last 24 hrs) 10/05/21 00:40: PT 15.0 H, INR 1.30 10/05/21 00:40: WBC 10.00, Hgb 11.6 L, Hct 35.2 L, Plt Count 201 10/05/21 00:40: Sodium 143, Potassium 3.7, BUN 28 H, Creatinine 1.45 H, Glucose 94, Magnesium 1.9, Total Bilirubin 0.6, AST 16, ALT 17, Alkaline Phosphatase 84 Assessment And Plan Plan to discharge in: 48 Hours Physician Review: Patient Assessed, Agree with Above Assessment and Plan Physician Review Additional Text: 10/05/21 11:50 - Physical Exam General: Alert, In no apparent distress, Oriented x3 HEENT: Atraumatic, PERRLA, Mucous membr. moist/pink, EOMI, Sclerae nonicteric Neck: Supple, 2+ carotid pulse no bruit, No LAD, Without JVD or thyroid abnormality Respiratory: Clear to auscultation bilaterally, Normal air movement Cardiovascular: Regular rate/rhythm, Normal S1 S2 Capillary refill: <2 Seconds Gastrointestinal: Normal bowel sounds, No tenderness Musculoskeletal: No tenderness Integumentary: No rashes Neurological: Normal speech, Normal strength at 5/5 x4 extr, Normal tone, Normal affect - Studies Laboratory Data (last 24 hrs) 10/05/21 00:40: PT 15.0 H, INR 1.30 10/05/21 00:40: WBC 10.00, Hgb 11.6 L, Hct 35.2 L, Plt Count 201 10/05/21 00:40: Sodium 143, Potassium 3.7, BUN 28 H, Creatinine 1.45 H, Glucose 94, Magnesium 1.9, Total Bilirubin 0.6, AST 16, ALT 17, Alkaline Phosphatase 84 Assessment and Plan - Plan Assessment: Presumed oropharyngeal dysphagia Hypertension Hyperlipidemia CKD 3 Plan: Dehydration, dysphagia: Plan for EGD today Post EGD, will start tube feeding after 24 hours We will put in consult for dietitian GI discussed with pre and post EGD placement normal esophageal motility with no structural abnormalities noted on EGD -Follow neurology as outpatient for work-up of myasthenia gravisDr. Stan We do PEG tube and tube feeding training Hypertension: Continue IV hydralazine as needed, resume oral medications in a.m. via PEG tube medications Hyperlipidemia: Restart meds when appropriate CKD 3: Continue fluids, stable. DVT PPX: SCD
[2021-10-05] MEDS ORDERED: ACETAMINOPHEN 650MG/RECT SUPP PR ONE (20:28)
[2021-10-05] MEDS: ONDANSETRON 4 MG/2 ML VIAL IV PRN (21:09)
--- NOTE | 2021-10-06 00:09 | CON ---
Reason For Consultation: Consultation called because of progressive dysphasia. History Of Present Illness: Mr. Sun is a 80-year-old patient with hypertension, dyslipidemia, who has a years worth of progressive dysphasia and dysarthria. His workup included a negative brain MRI done August 2021, and his modified barium study done also in August, identified laryngeal penetrati on with thin liquids by spoon, cup and straw, in addition to nectar-thick consistency there was aspir ation with cough. There was pyriformis residue with solid barium tablet in addition to posterior wal l residue with liquid by cup, and pureed consistency by spoon. The patient has high risk of aspirati on for all consistencies. At that point, he was still managing small amounts orally, but was failing to thrive and not gaining weight, and due to the progressive nature of dysphagia was determined that he needed to have a PEG tube placed. His interval workup has included a blood work for rule out of myasthenia gravis. In addition, he does require further evaluation to rule out Duyen Gehrig disease. Thus far the results are pending for his myasthenia gravis workup. He has had 2 negative COVID-19 te sts, one on the 05 of October and the 07 of September. The patient did receive his PEG tube earlier today, and the patient's was at bedside and he will be advanced on his diet as tolerated. In t erms of the EMG nerve conduction study, that will be done outpatient to help rule out or in both myas thenia gravis and Duyen Gehrig disease. Past Medical History: As noted in addition to GI. Allergies: NO KNOWN DRUG ALLERGIES. Social History: No alcohol, tobacco, or IV drug use. Current Medications: His medications include Zofran 4 mg IV every 6, apresoline 10 mg IV every 6 kosta rs, and he is receiving 0.45% saline at 100 cc an hour. Review of Systems: As noted, he has had significant difficulty swallowing, with coughing on thin liquids and other consi stencies. He has had failure to thrive with some weight loss, but no focal deficits in terms of face , arm, or leg numbness or weakness. No other positives on a 10-point systems review. Physical Examination: Vital Signs: Blood pressure 147/76, pulse 81, respiratory rate 16, temperature 97.0, oxygen saturati on 96% to 97T on 1 to 2 L nasal oxygen. General: Mr. Sun is resting in bed. He has no significant distress. HEENT: He is normocephalic, atraumatic. Sclerae anicteric. Oropharynx is moist and pink. Neck: Supple. Chest: Clear. Heart: Regular. Extremities: Show no significant cyanosis, clubbing, or edema. Neurological examination: He has poor labial, lingual and guttural sounds. His facial muscles are s lightly weak bilaterally and tongue is weak for either side movement, but does extrude in the midline . His motor examination shows mildly increased tone in the upper and lower extremities. He has diff use weakness 4/5 proximally and distally in the upper and lower extremities. Sensation intact to the upper and lower extremities. Coordination intact to the upper and lower extremities. Reflexes slig htly elevated in upper lower extremities. He will be ambulated with the physical therapists. Laboratory Data: Complete blood count differential is essentially unremarkable. Coagulation panel s hows INR 1.3. Chemistries show a creatinine of 1.45, reflecting mild dehydration. BUN was elevated initially to 73 now 58. Liver function studies are normal. Urinalysis shows trace ketones, otherwis e unremarkable. Acetylcholine receptor antibody panel is pending. Assessment: Mr. Sun is a 80-year-old patient with advancing dysphagia for approximately 1 year's d uration. He is being worked up for the possibility of myasthenia gravis versus Duyen Gehrig disease. He now has a PEG tube for nutrition, medication and hydration. Plan: 1.As noted, he will be treated as above. After discharge he has EMG nerve conduction study that sury l be done outpatient, and he should follow up with a stunner for formal pulmonary function stud ies to determine if CPAP at night will be appropriate and how soon to introduce that. 2.He should have high-protein nutrition to help maintain his weight. 3.He will follow up with Dr. Mckeon's clinic to review findings of additional neurological workup. LB/MODL Voice ID: [id number] Report ID: [id number]
--- NOTE | 2021-10-06 01:30 | OP ---
Surgeon: Дмитрий Syed MD Procedure Performed: Esophagogastroduodenoscopy with PEG placement. Indication For Procedure: Dysphagia, failure to thrive. Plan For Anesthesia: Monitored anesthesia care. Complexity: High due to the nature of the procedure. Technique: After obtaining informed consent from the patient and explaining risks and complications, which include, but are not limited to bleeding, infection, perforation, anesthesia complications, pa tient was placed in supine position and sedation was given. Then, the scope was advanced into the md ut and carefully guided up until the second portion of the duodenum. After the completion of this e xam, the scope was withdrawn while carefully examining the upper digestive tract. Findings: Esophagus: The Z-line is slightly irregular. Apart from that, no other findings in the e ntire esophagus. No evidence of stenosis or candidiasis or mass lesion. Stomach: Mild patchy erythema in the body and antrum. Biopsies taken. The duodenal bulb and second portion appeared normal. During the exam and taking biopsies, attention was focused back to the stomach. Good site of PEG mitchell cement was identified by one-to-one pressure as well as transillumination. Then under aseptic precau tions and after using 3 cc of lidocaine as a local anesthetic, a 20-[employer] PEG tube was placed with a pull guidewire technique. External bumper was at 3 cm. Its position was confirme d by repeat endoscopy. No Complications visualized. Complications: None. Tolerance To Anesthesia: Excellent. Postoperative Diagnoses: Gastritis, failure to thrive, status post PEG placement. Plan: 1.Await pathology results. 2.Nutrition consult for recommendation of tube feeding. Keep n.p.o. for 24 hours and can resume fee ding from tomorrow starting at 20 cc and advance as tolerated. Keep head end of the bed elevated to 45 degrees. Pain medicine as needed. US/MODL Voice ID: [id number] Report ID: [id number]
[2021-10-06] MEDS: D5 0.45 NS 1,000 ML IV SCH ×2 (01:34→09:39)
[2021-10-06 05:41] LABS: Absolute Lymphocytes (CBC) 1.2 K/uL (0.7-4.9); Hematocrit 35.2 % (39.6-49.0); Lymphocytes % 16.4 % (15.3-44.8); MPV 7.8 fL (7.6-11.3)
[2021-10-06 06:11] LABS: Albumin 3.2 g/dL (3.4-5.0); Bilirubin Total 0.5 mg/dL (0.2-1.0); Magnesium 1.9 mg/dL (1.8-2.4); Potassium 3.1 mmol/L (3.5-5.1); Protein, Total 6.5 g/dL (6.4-8.2); Thyroid Stimulating Hormone 0.252 uIU/mL (0.360-3.740)
[2021-10-06] MEDS: KCL 20 MEQ/100 mL IVPB 20 MEQ/100 ML BAG IV SCH ×2 (08:27→10:29)
[2021-10-06] MEDS ORDERED: POTASSIUM 25 MEQ EFFERV TAB PO ONE (13:22)
--- NOTE | 2021-10-06 13:24 | P.PN ---
Subjective Date of Service: 10/06/21 Chief Complaint: Dysphagia Subjective: No new changes, No C/O voiced Physical Examination - Vital Signs Temperature: 97.3 F Blood Pressure: 157/94 Pulse: 73 Respirations: 16 Pulse Ox (%): 97 Assessment And Plan Physician Review: Patient Assessed, Agree with Above Assessment and Plan Physician Review Additional Text: 10/05/21 11:50 - Physical Exam General: Alert, In no apparent distress, Oriented x3 HEENT: Atraumatic, PERRLA, Mucous membr. moist/pink, EOMI, Sclerae nonicteric Neck: Supple, 2+ carotid pulse no bruit, No LAD, Without JVD or thyroid abnormality Respiratory: Clear to auscultation bilaterally, Normal air movement Cardiovascular: Regular rate/rhythm, Normal S1 S2 Capillary refill: <2 Seconds Gastrointestinal: Normal bowel sounds, No tenderness Musculoskeletal: No tenderness Integumentary: No rashes Neurological: Normal speech, Normal strength at 5/5 x4 extr, Normal tone, Normal affect - Studies Laboratory Data (last 24 hrs) 10/05/21 00:40: PT 15.0 H, INR 1.30 10/05/21 00:40: WBC 10.00, Hgb 11.6 L, Hct 35.2 L, Plt Count 201 10/05/21 00:40: Sodium 143, Potassium 3.7, BUN 28 H, Creatinine 1.45 H, Glucose 94, Magnesium 1.9, Total Bilirubin 0.6, AST 16, ALT 17, Alkaline Phosphatase 84 Assessment and Plan - Plan Assessment: Presumed oropharyngeal dysphagia Hypertension Hyperlipidemia CKD 3 Plan: Dehydration, dysphagia: Status post placed PEG tube Start free water flushes today Dietitian to initiate tube feeding Case management discussed with to arrange for tube feeds at home We will replete electrolytes Switch IVF to D5 NS with KCl -Status post EGD by GI draining PEG tube placement normal esophageal wall structure with no structural abnormalities noted on EGD -Follow neurology as outpatient for work-up of myasthenia gravisDr. Stan Hypertension: Continue IV hydralazine as needed, resume oral medications in a.m. via PEG tube medications Hyperlipidemia: Restart meds when appropriate CKD 3: Continue fluids, stable. DVT PPX: SCD 10/06/21 13:23 Time Spent Managing PTS Care (In Minutes): 35
[2021-10-06] MEDS: D5.45NS W/KCL 20MEQ 20 MEQ/1,000 ML BAG IV SCH ×2 (13:39→23:32)
[2021-10-06] MEDS: JEVITY 1.5 CAL LIQUID 1,000 ML BOT FT SCH ×2 (17:05→21:45)
[2021-10-06] MEDS: HYDRALAZINE HCL 20 MG/ML VIAL IV PRN (18:47)
[2021-10-06] MEDS: ONDANSETRON 4 MG/2 ML VIAL IV PRN (20:36)
[2021-10-07] MEDS: D5.45NS W/KCL 20MEQ 20 MEQ/1,000 ML BAG IV SCH ×2 (03:20→11:59)
[2021-10-07 06:34] LABS: Absolute Lymphocytes (CBC) 1.3 K/uL (0.7-4.9); Hematocrit 32.8 % (39.6-49.0); Lymphocytes % 20.2 % (15.3-44.8); MPV 8.2 fL (7.6-11.3); RBC Red Blood Cell Count 3.84 M/uL (4.33-5.43)
[2021-10-07 06:59] LABS: Albumin 2.8 g/dL (3.4-5.0); Bilirubin Total 0.4 mg/dL (0.2-1.0); Potassium 3.9 mmol/L (3.5-5.1); Protein, Total 5.9 g/dL (6.4-8.2)
[2021-10-07] MEDS: JEVITY 1.5 CAL LIQUID 1,000 ML BOT FT SCH ×5 (08:56→21:09)
--- NOTE | 2021-10-07 12:10 | P.DS ---
Admission Date: 10/05/21 Discharge Date: 10/07/21 Disposition: ROUTINE DISCHARGE Discharge Condition: FAIR Reason for Admission: Dysphagia Hospital Course: Hospital course Patient with Dysphagia being work-up for possible myasthenia gravis presenting with persistent dysphagia and poor p.o. intake. On presentation she was evaluated by GI he had EGD done with no structural abnormalities. He also had a PEG tube placed. He was started on tube feeding with Jevity and tolerating well. He has been evaluated by dietitian and PEG tube feeding has been discussed and trained. He will be sent home today to follow-up with his neurologistDr. Mckeon for continue work-up of his possible neurological problem. - Physical Exam General: Alert, In no apparent distress, Oriented x3 HEENT: Atraumatic, PERRLA, Mucous membr. moist/pink, EOMI, Sclerae nonicteric Neck: Supple, 2+ carotid pulse no bruit, No LAD, Without JVD or thyroid abnormality Respiratory: Clear to auscultation bilaterally, Normal air movement Cardiovascular: Regular rate/rhythm, Normal S1 S2 Capillary refill: <2 Seconds Gastrointestinal: Normal bowel sounds, No tenderness Musculoskeletal: No tenderness Integumentary: No rashes Neurological: Normal speech, Normal strength at 5/5 x4 extr, Normal tone, Normal affect Vital Signs/Physical Exam: Temp Pulse Resp BP Pulse Ox 98.2 F 72 18 149/88 H 96 10/07/21 08:00 10/07/21 08:00 10/07/21 08:00 10/07/21 08:00 10/07/21 08:00 Laboratory Data at Discharge: WBC 6.30 K/uL (4.3-10.9) D 10/07/21 05:41 Hgb 10.9 g/dL (13.6-17.9) L 10/07/21 05:41 Hct 32.8 % (39.6-49.0) L 10/07/21 05:41 Plt Count 196 K/uL (152-406) 10/07/21 05:41 PT 15.0 SECONDS (9.5-12.5) H 10/05/21 00:40 INR 1.30 10/05/21 00:40 Sodium 141 mmol/L (136-145) 10/07/21 05:41 Potassium 3.9 mmol/L (3.5-5.1) 10/07/21 05:41 BUN 13 mg/dL (7-18) 10/07/21 05:41 Creatinine 0.89 mg/dL (0.55-1.3) 10/07/21 05:41 Glucose 94 mg/dL (74-106) 10/07/21 05:41 Magnesium 2.0 mg/dL (1.8-2.4) 10/07/21 05:41 Total Bilirubin 0.4 mg/dL (0.2-1.0) 10/07/21 05:41 AST 13 U/L (15-37) L 10/07/21 05:41 ALT 13 U/L (12-78) 10/07/21 05:41 Alkaline Phosphatase 73 U/L (45-117) 10/07/21 05:41 Home Medications: Multivitamin [Daily Multivitamin] 1 each PO DAILY 02/03/13 Amlodipine Besylate 1 tab PO [id number] 10/05/21 Ascorbic Acid 1 tab PO DAILY 10/05/21 Aspirin 4 tab PO DAILY 10/05/21 Carvedilol [Coreg] 1 tab PO BID 10/05/21 Clopidogrel Bisulfate [Plavix*] 1 tab PO DAILY 10/05/21 Ferrous Gluconate 324 mg PO DAILY 10/05/21 Pantoprazole [Protonix Tab*] 1 tab PO DAILY 10/05/21 Sertraline HCl 1.5 tab PO DAILY 10/05/21 Bupropion HCl [Wellbutrin] 75 mg OSTOMY BID #60 tablet 10/07/21 Gabapentin 7.5 ml PO BID #450 ml 10/07/21 Jevity 1.5 Song Liquid 237 ml FT 5XD bot 10/07/21 Mirabegron [Myrbetriq] 3 ml PO DAILY #120 [email or web address] 10/07/21 New Medications: Gabapentin 7.5 ml PO BID #450 ml Mirabegron [Myrbetriq] 3 ml PO DAILY #120 [email or web address] Bupropion HCl [Wellbutrin] 75 mg OSTOMY BID #60 tablet Diet: tube feed Activity: Ad arin Followup: NONE,NONE [Primary Care Provider] - Time spent managing pt's care (in minutes): 35
--- NOTE | 2021-10-07 12:12 | P.PN ---
Subjective Date of Service: 10/07/21 Chief Complaint: Dysphagia Subjective: No new changes, No C/O voiced Physical Examination - Vital Signs Temperature: 98.2 F Blood Pressure: 149/88 Pulse: 72 Respirations: 18 Pulse Ox (%): 96 Assessment And Plan Physician Review: Patient Assessed, Agree with Above Assessment and Plan Physician Review Additional Text: 10/05/21 11:50 - Physical Exam General: Alert, In no apparent distress, Oriented x3 HEENT: Atraumatic, PERRLA, Mucous membr. moist/pink, EOMI, Sclerae nonicteric Neck: Supple, 2+ carotid pulse no bruit, No LAD, Without JVD or thyroid abnormality Respiratory: Clear to auscultation bilaterally, Normal air movement Cardiovascular: Regular rate/rhythm, Normal S1 S2 Capillary refill: <2 Seconds Gastrointestinal: Normal bowel sounds, No tenderness Musculoskeletal: No tenderness Integumentary: No rashes Neurological: Normal speech, Normal strength at 5/5 x4 extr, Normal tone, Normal affect - Studies Laboratory Data (last 24 hrs) 10/05/21 00:40: PT 15.0 H, INR 1.30 10/05/21 00:40: WBC 10.00, Hgb 11.6 L, Hct 35.2 L, Plt Count 201 10/05/21 00:40: Sodium 143, Potassium 3.7, BUN 28 H, Creatinine 1.45 H, Glucose 94, Magnesium 1.9, Total Bilirubin 0.6, AST 16, ALT 17, Alkaline Phosphatase 84 Assessment and Plan - Plan Assessment: Presumed oropharyngeal dysphagia Hypertension Hyperlipidemia CKD 3 Plan: Dehydration, dysphagia: Status post placed PEG tube, tolerating feeding well PEG tube feeding has been done Follow arrangement of home supply of of tube feeding Medications will be changed to allow for PEG tube intake Case management discussed with to arrange for tube feeds at home -Status post EGD by GI draining PEG tube placement normal esophageal wall structure with no structural abnormalities noted on EGD -Follow neurology as outpatient for work-up of myasthenia gravSanderrMargaret Mckeon Hypertension: Continue IV hydralazine as needed, resume oral medications in a.m. via PEG tube medications Hyperlipidemia: Restart meds when appropriate CKD 3: Continue fluids, stable. DVT PPX: SCD 10/06/21 13:23 10/07/21 12:12
[2021-10-07] MEDS ORDERED: POTASSIUM 25 MEQ EFFERV TAB PO ONE (18:51)
[2021-10-08 06:43] LABS: Absolute Lymphocytes (CBC) 1.2 K/uL (0.7-4.9); Hematocrit 34.5 % (39.6-49.0); MPV 8.1 fL (7.6-11.3); RBC Red Blood Cell Count 3.99 M/uL (4.33-5.43)
[2021-10-08] MEDS: D5.45NS W/KCL 20MEQ 20 MEQ/1,000 ML BAG IV SCH ×2 (06:52→17:28)
[2021-10-08 07:02] LABS: Albumin 2.9 g/dL (3.4-5.0); Bilirubin Total 0.3 mg/dL (0.2-1.0); Protein, Total 6.1 g/dL (6.4-8.2)
[2021-10-08] MEDS: JEVITY 1.5 CAL LIQUID 1,000 ML BOT FT SCH ×5 (08:10→21:26)
--- NOTE | 2021-10-08 13:07 | P.PN ---
Subjective Date of Service: 10/08/21 Chief Complaint: Dysphagia Subjective: No new changes, No C/O voiced (States oral secretions was much less yesterday Awaiting social work placement of home dietary needs as well as DME) Physical Examination - Vital Signs Temperature: 96.2 F Blood Pressure: 140/87 Pulse: 70 Respirations: 20 Pulse Ox (%): 96 Assessment And Plan Physician Review: Patient Assessed, Agree with Above Assessment and Plan Physician Review Additional Text: 10/05/21 11:50 - Physical Exam General: Alert, In no apparent distress, Oriented x3 HEENT: Atraumatic, PERRLA, Mucous membr. moist/pink, EOMI, Sclerae nonicteric Neck: Supple, 2+ carotid pulse no bruit, No LAD, Without JVD or thyroid abnormality Respiratory: Clear to auscultation bilaterally, Normal air movement Cardiovascular: Regular rate/rhythm, Normal S1 S2 Capillary refill: <2 Seconds Gastrointestinal: Normal bowel sounds, No tenderness, PEG tube in situ Musculoskeletal: No tenderness Integumentary: No rashes Neurological: Normal speech, Normal strength at 5/5 x4 extr, Normal tone, Normal affect Assessment: Oropharyngeal dysphagiaof unknown etiology Hypertension Hyperlipidemia CKD 3 Plan: Dehydration, dysphagia: Continue tube feeding per dietary recommendation with Jevity Status post placed PEG tube, tolerating feeding well Follow case management for home feeding supplies and DME equipment Medications will be changed to allow for PEG tube intake Status post EGD by GI draining PEG tube placement normal esophageal wall stru cture with no structural abnormalities noted on EGD Follow neurology as outpatient for work-up of myasthenia gravSanderr. Linda Hypertension: Continue medications Hyperlipidemia:stable CKD 3: Continue fluids, stable. DVT PPX: SCD 10/06/21 13:23 10/07/21 12:12 10/08/21 13:05 Time Spent Managing PTS Care (In Minutes): 35
[2021-10-08 22:05] VITALS: O2SAT 96
[2021-10-09] MEDS: HYDRALAZINE HCL 20 MG/ML VIAL IV PRN (00:33)
[2021-10-09 04:04] LABS: Absolute Lymphocytes (CBC) 1.5 K/uL (0.7-4.9); Hematocrit 33.8 % (39.6-49.0); Lymphocytes % 20.7 % (15.3-44.8); MPV 8.3 fL (7.6-11.3); RBC Red Blood Cell Count 3.93 M/uL (4.33-5.43)
[2021-10-09 04:16] LABS: ALT/SGPT 13 U/L (12-78); AST/SGOT 14 U/L (15-37); Albumin 2.9 g/dL (3.4-5.0); Alkaline Phosphatase 82 U/L (45-117); BUN Blood Urea Nitrogen 14 mg/dL (7-18); Bicarbonate 25 mmol/L (21-32); Bilirubin Total 0.3 mg/dL (0.2-1.0); Glucose Level 104 mg/dL (74-106); Magnesium 1.9 mg/dL (1.8-2.4); Potassium 3.9 mmol/L (3.5-5.1); Sodium Level 141 mmol/L (136-145)
[2021-10-09] MEDS ORDERED: ACETAMINOPHEN 325 MG TABLET PO PRN (05:02)
[2021-10-09] MEDS: AMLODIPINE 10 MG TAB FT SCH (05:22)
[2021-10-09] MEDS: D5.45NS W/KCL 20MEQ 20 MEQ/1,000 ML BAG IV SCH ×3 (05:23→22:21)
[2021-10-09] MEDS ORDERED: AMLODIPINE 10 MG TAB PO SCH (06:00)
[2021-10-09] MEDS: JEVITY 1.5 CAL LIQUID 1,000 ML BOT FT SCH ×5 (08:00→22:21)
[2021-10-09] MEDS ORDERED: PANTOPRAZOLE 40MG TABLET PO SCH (09:00)
[2021-10-09] MEDS ORDERED: SERTRALINE HCL 100 MG TAB PO SCH (09:00)
[2021-10-09] MEDS ORDERED: FERROUS GLUCONATE 324 MG TAB PO SCH (09:00)
[2021-10-09] MEDS ORDERED: ASPIRIN 81 MG CHEWABLE TABLET PO SCH (09:00)
[2021-10-09] MEDS ORDERED: CLOPIDOGREL 75 MG TABLET PO SCH (09:00)
[2021-10-09] MEDS ORDERED: carvediloL 25 MG TAB PO SCH (09:00)
[2021-10-09] MEDS: ASPIRIN 81 MG CHEWABLE TABLET FT SCH (09:38)
[2021-10-09] MEDS: SERTRALINE HCL 100 MG TAB FT SCH (09:38)
[2021-10-09] MEDS: ASCORBIC ACID 500 MG TABLET PO SCH (09:38)
[2021-10-09] MEDS: carvediloL 25 MG TAB FT SCH ×2 (09:39→22:21)
[2021-10-09] MEDS: MULTIVITAMIN TAB PO SCH (09:39)
[2021-10-09] MEDS: CLOPIDOGREL 75 MG TABLET FT SCH (09:39)
--- NOTE | 2021-10-09 12:42 | RAD REPORT ---
EXAM DESCRIPTION: RAD - Barium Swallow Modified - 10/09/2021 11:57 am CLINICAL HISTORY: Dysphagia COMPARISON: None. TECHNIQUE: The patient was given liquid, semi-solid and solid forms of barium. Lateral view fluorosc opic imaging was performed in conjunction with speech pathology service. FINDINGS: Cineloop acquisitions: 19 Fluoro time: 1 minutes 44 seconds LARYNGEAL PENETRATION- NOT CLEARED WITH THIN, NECTAR & HONEY PHARYNGEAL RESIDUE VALLECULAR- WITH THIN, NECTAR, HONEY, PUREE AND DRY SOLID. PYRIFORM- WITH THIN, NE CTAR, HONEY, PUREE AND DRY SOLID. MINIMAL EPIGLOTTIC DEFLECTION, MINIMAL UES OPENING IMPRESSION: Modified barium swallow as summarized above and fully detailed on speech pathology repor tMargaret
--- NOTE | 2021-10-09 23:50 | P.PN ---
Subjective Date of Service: 10/09/21 Subjective: No new changes, No C/O voiced, Improving PATIENT'S MEDICAL SUPPLIES HER WITH GOING TO BE READY BY TOMORROW SO WE WILL DISCHARGE TOMORROW MORNING Review of Systems 10-point ROS is otherwise unremarkable Physical Examination - Vital Signs Temperature: 97.4 F Blood Pressure: 147/79 Pulse: 62 Respirations: 18 Pulse Ox (%): 97 - Physical Exam General: Alert, In no apparent distress, Oriented x3 HEENT: Atraumatic, PERRLA, EOMI Neck: Supple, JVD not distended Respiratory: Clear to auscultation bilaterally, Normal air movement Cardiovascular: Regular rate/rhythm, Normal S1 S2 Gastrointestinal: Normal bowel sounds, Soft and benign, Non-distended, No tenderness, Other (PEG TUBE FEEDS) Musculoskeletal: No tenderness Integumentary: No rashes Neurological: Normal speech, Normal tone, Normal affect Lymphatics: No axilla or inguinal lymphadenopathy - Studies Medications List Reviewed: Yes Assessment & Plan - Problems (Diagnosis) (1) Hypertension Current Visit: Yes Status: Acute (2) Coronary arteriosclerosis Current Visit: No Status: Active (3) Hyperlipidemia Current Visit: No Status: Active (4) Dysphagia Current Visit: Yes Status: Acute (5) CKD (chronic kidney disease) Current Visit: Yes Status: Acute - Plan PLAN: 1. CONTINUE WITH TUBE FEEDING 2. ARRANGE FOR DISCHARGE TOMORROW 3. MEDICAL SUPPLY SHOULD BE READY TOMORROW FOR DISCHARGE - Advance Directives Does patient have a Living Will: No Does patient have a Durable POA for Healthcare: No Physician Review: Patient Assessed, Agree with Above Assessment and Plan
[2021-10-10] MEDS: AMLODIPINE 10 MG TAB FT SCH (05:58)
[2021-10-10] MEDS: JEVITY 1.5 CAL LIQUID 1,000 ML BOT FT SCH ×2 (06:36→11:00)
[2021-10-10] MEDS ORDERED: KCL 20 MEQ/100 mL IVPB 20 MEQ/100 ML BAG IV SCH (09:00)
[2021-10-10 09:24] VITALS: BP 132/82; TEMP 98.5
[2021-10-10] MEDS: ASPIRIN 81 MG CHEWABLE TABLET FT SCH (09:26)
[2021-10-10] MEDS: ASCORBIC ACID 500 MG TABLET PO SCH (09:27)
[2021-10-10] MEDS: carvediloL 25 MG TAB FT SCH (09:27)
[2021-10-10] MEDS: SERTRALINE HCL 100 MG TAB FT SCH (09:27)
[2021-10-10] MEDS: MULTIVITAMIN TAB PO SCH (09:27)
[2021-10-10] MEDS: CLOPIDOGREL 75 MG TABLET FT SCH (09:27)
[2021-10-10] MEDS: D5.45NS W/KCL 20MEQ 20 MEQ/1,000 ML BAG IV SCH (11:20)
== END 2021-10-10 12:16 | disposition home health service (06) | DRG 392 ==
LOC: ER 00:01 → ERHOLD 01:25 → 2ND 11:14
PROVIDERS: ADMIT Internal Medicine; ATTEND Hospitalist
PROC: 0DH63UZ Insertion of Feeding Device into Stomach, Percutaneous Approach (ICD-10-PCS; principal; 2021-10-09)
PROC: 0DB68ZX Excision of Stomach, Via Natural or Artificial Opening Endoscopic, Diagnostic (ICD-10-PCS; 2021-10-09)
DX: R13.12 Dysphagia, oropharyngeal phase (principal); E86.0 Dehydration; E78.5 Hyperlipidemia, unspecified; D64.9 Anemia, unspecified; I12.9 Hypertensive chronic kidney disease with stage 1 through stage 4 chronic kidney disease, or unspecified chronic kidney disease; N18.30 Chronic kidney disease, stage 3 unspecified; K29.70 Gastritis, unspecified, without bleeding; I25.10 Atherosclerotic heart disease of native coronary artery without angina pectoris; K76.89 Other specified diseases of liver; G70.00 Myasthenia gravis without (acute) exacerbation; R62.7 Adult failure to thrive; Z86.73 Personal history of transient ischemic attack (TIA), and cerebral infarction without residual deficits; Z79.899 Other long term (current) drug therapy; Z79.82 Long term (current) use of aspirin; Z79.02 Long term (current) use of antithrombotics/antiplatelets; Z20.822 Contact with and (suspected) exposure to COVID-19
CPT/HCPCS: 36415; 71045; 74230; 76700; 80048; 80053; 80076; 81003; 82947; 83519; 83735; 83880; 84132; 84238; 84439; 84443; 84484; 85025; 85610; 88305; 88312; 92611; 93005; 96361; 96374; 99285; J0360; J2405; J2704; J3480; J7030; J7040; J7120; J7799; U0003

== ENCOUNTER 2021-11-17 06:29 | Day surgery (SDC) | payer OTHER ==
[2021-11-16 16:40] LABS: Potassium 4.7 mmol/L (3.5-5.1)
[2021-11-17] MEDS ORDERED: CEFAZOLIN/SWI 2gm 2 GM/20 ML SYR ONE (06:52)
[2021-11-17] MEDS ORDERED: Ringers Lactate 1,000 ML IV ONE (06:52)
[2021-11-17] MEDS ORDERED: LIDOCAINE 1% MPF 30 ML VIAL ONE (07:03)
[2021-11-17] MEDS ORDERED: LIDOCAINE 1% 20 ML MDV ONE (07:11)
[2021-11-17] MEDS ORDERED: BUPIVACAINE 0.5% PF 10 ML VIAL ONE (07:11)
[2021-11-17] MEDS ORDERED: ONDANSETRON 4 MG/2 ML VIAL ONE (07:28)
[2021-11-17] MEDS ORDERED: FENTANYL CITR 100 MCG/2 ML ONE (07:28)
[2021-11-17] MEDS ORDERED: MIDAZOLAM HCL 2 MG/2 ML INJ ONE (07:28)
[2021-11-17] MEDS ORDERED: LIDOCAINE 2% MPF 5 ML VIAL ONE (07:28)
[2021-11-17] MEDS ORDERED: propofoL 200 MG/20 ML VIAL IV ONE (07:28)
[2021-11-17] MEDS ORDERED: LIDOCAINE 1% W/EPI 1:100,000 10 ML VIAL ONE (07:54)
[2021-11-17] MEDS ORDERED: LIDOCAINE 1% W/EPI 1:100,000 10 ML VIAL IJ ONE (09:02)
--- NOTE | 2021-11-17 09:19 | P.OP ---
Preoperative diagnosis: RIGHT hand skin cancer, LEFT hand skin lesions x 4 Postoperative diagnosis: RIGHT hand skin cancer, LEFT hand skin lesions x 4 Primary procedure: Wide Excision of RIGHT hand skin cancer, LEFT hand skin lesions x 4 Secondary procedure: Frozen Section analysis of RIGHT hand skin cance Anesthesia: MAC + Local Estimated blood loss: <5cc Specimen: RIGHT hand skin cancer, LEFT hand skin lesions x 4 Findings: ulcerated RIGHT hand skin lesoin Complications: None Transferred to: Recovery Room Condition: Good
[2021-11-17 11:01] VITALS: O2SAT 100
[2021-11-17 11:03] VITALS: BP 133/72; TEMP 97.6
--- NOTE | 2021-11-17 19:56 | OP ---
Date of Procedure: 11/17/2021 Surgeon: Jules Young MD, Preoperative Diagnoses: 1.Right hand skin cancer. 2.Left hand skin lesions x4. Postoperative Diagnoses: Right hand skin cancer and left hand skin lesions x4. Procedure: Wide excision of right hand skin cancer and punch biopsy of left hand skin lesions x4. A dditional procedure, frozen section analysis was performed on the right hand skin cancer lesion. Anesthesia: MAC with local. Local anesthesia was 1% lidocaine with epinephrine. Estimated Blood Loss: Less than 5 cc. Specimen: 1.Right hand skin cancer. 2.Left hand skin lesion x4, all dorsal. Findings: Right hand dorsal skin lesion previously biopsied and found to be consistent with skin can cer. Additional biopsy as previous margins were positive from another provider. Left hand skin lesi ons x4, all on the dorsal aspect of the left hand and all appear skin damaged areas. Punch biopsy wa s performed on this. Complications: None. Disposition: Patient transferred to recovery room in good condition. Procedure In Detail: After informed consent was obtained, patient was brought to the operating room, prepped and draped in the usual sterile fashion. After adequate anesthesia was achieved, the area o n the right hand skin lesion that has central ulceration was sized out for approximately 1 cm margins . I then made an elliptical incision around this previous skin lesion down to subcutaneous tissues u sing a 15 blade. Electrocautery was used to remove the specimen and it was sent off for pathologic e xamination with orientation sutures in place. After this was performed, the hemostasis was achieved with electrocautery. I performed some gentle mobilization of the skin and closed the skin lesion wit h interrupted vertical mattress sutures after pathology confirmed negative margins were achieved. At this point, I removed 4 left dorsal skin hand lesions with punch biopsy and these were sent off for pathologic examination as well and these were 0.5 cm punch biopsies. All specimens were sent off for pathologic examination for permanent and the skin was irrigated and closed with interrupted simple 2 -0 nylon sutures and a sterile dressing was placed over top. The patient tolerated the procedure wel l without evidence of complication and transferred to PACU in good condition. All counts were correc t at the end of the case. TK/MODL Voice ID: [id number] Report ID: [id number]
== END 2021-11-17 10:40 | disposition home or self-care (01) ==
LOC: PRE 06:29
PROVIDERS: ATTEND Surgery
PROC: 0JBK0ZX Excision of Left Hand Subcutaneous Tissue and Fascia, Open Approach, Diagnostic (ICD-10-PCS; 2021-11-17)
PROC: 0JBJ0ZZ Excision of Right Hand Subcutaneous Tissue and Fascia, Open Approach (ICD-10-PCS; principal; 2021-11-17 08:00)
DX: D04.61 Carcinoma in situ of skin of right upper limb, including shoulder (principal); D04.62 Carcinoma in situ of skin of left upper limb, including shoulder; L98.8 Other specified disorders of the skin and subcutaneous tissue; Z20.822 Contact with and (suspected) exposure to COVID-19
CPT/HCPCS: 11623; 11104; 11105 ×3; 80048; 36415; 88331; 88332; 88305 ×2; U0003; J2704; J2250; J3010; J0690; J7120; J2405

== ENCOUNTER 2021-12-11 13:38 | Inpatient (IN) | payer OTHER ==
--- OUTSIDE RECORDS SUMMARY | 2021-12-11 14:01 | XMS REPORT | Continuity of Care Document ---
:1940 Author Organization [facility] t Address [address] [place] [address] Care Team Providers Name Role Phone Melquiades SWEENEY Primary Care Physician Unavailable Tomas Attending Clinician Unavailable Farzana HAYDEN Attending Clinician Unavailable MELY LEMON Attending Clinician Unavailable Garo Yanes Attending Clinician Unavailable Negar KESSLER Attending Clinician Unavailable EMELINA Attending Clinician Unavailable Doctor Unassigned, Name Attending Clinician Unavailable Catracho HERNANDEZ L Attending Clinician Lab, Fam Pob I Attending Clinician Unavailable Farzana HAYDEN Admitting Clinician Unavailable MELY LEMON Admitting Clinician Unavailable Physician, Primary or Family Admitting Clinician Unavailabl e EMELINA Admitting Clinician Unavailable Payers Payer Name Policy Type Policy Number Effective Date Expiration Date S carey MEDICARE PART A \T\ [id number] 2007 B 00:00:00 [employer] COMMERCIAL [id number] 2013 OUT OF NETWORK 00:00:00 MEDICARE A B [id number] 2007 00:00:00 [employer] INDEMNITY NON [id number] 2013 CONTR 00:00:00 MEDICARE B-[place]: [id number] 2007 [employer] 00:00:00 [employer] (INDEMNITY) [id number] 2000 00:00:00 Problems Condition Condition Condition Status Onset Resolution Last Treating Co mments Source Name Details Category Date Date Treatment Clinician Date Ischemic Ischemic Disease Active 2019-0 Unive rs stroke stroke 8-18 ity of 00:00: [address] Allergies, Adverse Reactions, Alerts Allergy Allergy Status Severity Reaction(s) Onset Inactive Treating Comm ents Source Name Type Date Date Clinician No Known DA Active U 2019-0 [facility] [place] 00:[facility]: [address] No Known DA Active U 2020-0 [facility] [place] 00:[place]: [address] NO KNOWN Allergy Active [facility] NO KNOWN Drug Active Univers ALLERGIE Class ity of S [facility] Social History Social Habit Start Date Stop Date Quantity Comments Source Exposure to Not sure [facility] SARS-CoV-2 [facility] (event) [place] Alcohol intake 2021-09-08 2021-09-08 Lifetime University of 00:00:00 00:00:00 non-drinker [facility] (finding) [place] Tobacco use and 2021-08-16 2021-08-16 Never used Universit y of exposure 00:00:00 00:00:00 [facility] Sex Assigned At [birth year] Universit y of 00:00:00 00:00:00 [facility] Smoking Status Start Date Stop Date Source Never smoker [facility] Medications Ordered Filled Start Stop Current Ordering Indication Dosage Frequency Signature Comments Components Source Medication Medication Date Date Medication? Clinician (SIG) Name Name SERTraline 2020-08 Yes 125mg Take 125 Un teri 100 mg 2-29 mg by ity of tablet 16:16: mouth. [address] SERTraline 2020-08 Yes 125mg Take 125 Un teri 100 mg 2-29 mg by ity of tablet 16:16: mouth. [address] SERTraline 2020-08 Yes 125mg Take 125 Un teri 100 mg 2-29 mg by ity of tablet 16:16: mouth. [address] SERTraline 2020-08 Yes 125mg Take 125 Un teri 100 mg 2-29 mg by ity of tablet 16:16: mouth. [address] gabapentin 2020-08 Yes 400mg Take 400 Un teri 400 mg 2-29 mg by ity of capsule 16:16: mouth. [address] carvediloL 2020-08 Yes 25mg Take 25 mg U nivers 25 mg 2-29 by mouth. ity of tablet 16:16: [address] gabapentin 2020-08 Yes 400mg Take 400 Un teri 400 mg 2-29 mg by ity of capsule 16:16: mouth. [address] carvediloL 2020-08 Yes 25mg Take 25 mg U nivers 25 mg 2-29 by mouth. ity of tablet 16:16: [address] gabapentin 2020-08 Yes 400mg Take 400 Un teri 400 mg 2-29 mg by ity of capsule 16:16: mouth. [address] carvediloL 2020-08 Yes 25mg Take 25 mg U nivers 25 mg 2-29 by mouth. ity of tablet 16:16: [address] gabapentin 2020-08 Yes 400mg Take 400 Un teri 400 mg 2-29 mg by ity of capsule 16:16: mouth. [address] carvediloL 2020-08 Yes 25mg Take 25 mg U nivers 25 mg 2-29 by mouth. ity of tablet 16:16: [address] pantoprazol 2020-08 Yes Univer s e 40 mg EC 2-14 ity of tablet 00:00: [address] pravastatin 2020-08 Yes Univer s 40 mg 2-14 ity of tablet 00:00: [address] pantoprazol 2020-08 Yes Univer s e 40 mg EC 2-14 ity of tablet 00:00: [address] pravastatin 2020-08 Yes Univer s 40 mg 2-14 ity of tablet 00:00: [address] pantoprazol 2020-08 Yes Univer s e 40 mg EC 2-14 ity of tablet 00:00: [address] pravastatin 2020-08 Yes Univer s 40 mg 2-14 ity of tablet 00:00: [address] pantoprazol 2020-08 Yes Univer s e 40 mg EC 2-14 ity of tablet 00:00: [place] [facility] pravastatin 2020-08 Yes Univer s 40 mg 2-14 ity of tablet 00:00: [facility] traMADoL 50 2020-08 Yes Univer s mg tablet 2-12 ity of 00:00: [place] [facility] traMADoL 50 [...] 75 mg 0-21 ity of tablet 00:00: [place] [facility] amLODIPine 2020-08 Yes Univers 5 mg tablet 0-21 ity of 00:00: [place] [facility] clopidogreL 2020-08 Yes Univer s 75 mg 0-21 ity of tablet 00:00: [place] [facility] amLODIPine 2020-08 Yes Univers 5 mg tablet 0-21 ity of 00:00: [place] [facility] clopidogreL 2020-08 Yes Univer s 75 mg 0-21 ity of tablet 00:00: [place] [facility] amLODIPine 2020-08 Yes Univers 5 mg tablet 0-21 ity of 00:00: [place] [facility] clopidogreL 2020-08 Yes Univer s 75 mg 0-21 ity of tablet 00:00: [place] [facility] amLODIPine 2020-08 Yes Univers 5 mg tablet 0-21 ity of 00:00: [place] [facility] aspirin 81 2019-0 2020- No 81mg QD Take [address] MG chewable 8-20 08-20 tablet (81 L ukes - tablet 00:00: 23:59 mg total) Medic al 00 :00 by mouth Center daily. amLODIPine 2019-0 Yes 10mg QD Take [address] (NORVASC) 5 8-19 by mouth Luke s - MG tablet 15:01: daily. Medica l [address] [place] gabapentin 2019-0 Yes 400mg QD Take [address] (NEURONTIN) 8-19 mg by [facility]ukes - 400 MG 15:01: mouth Medical capsule 48 daily. [place] carvediloL 2019-0 Yes 25mg QD Take [address] (COREG) 25 8-19 by mouth [facility]ukes - MG tablet 15:01: daily. Medica l [address] buPROPion 2019-0 Yes 300mg QD Take [address] (WELLBUTRIN 8-19 mg by [facility]ukes - XL) 300 MG 15:01: mouth Medica l 24 hr 48 daily. [place] tablet sertraline 2019-0 Yes 125mg QD Take [address] (ZOLOFT) 8-19 mg by Lukes - 100 MG 15:01: mouth Medical tablet 48 daily. [place] pantoprazol 2019-0 Yes 40mg QD Take [address] e 8-19 by mouth [facility]ukes - (PROTONIX) 15:01: daily. Medic al 40 MG [address] [place] tablet multivitami Yes 1{tbl} QD Take [address] n per 04-06 tablet by [facility]ukes - tablet 15:01: mouth Medical 48 daily. Center clopidogreL Yes 75mg QD Take [address] (PLAVIX) 75 04-06 by mouth Luke s - mg tablet 15:01: daily. Medica l [address] atorvastati 2020- No 80mg QD Take [address] n (LIPITOR) 04-06 tablet (80 L ukes - 80 MG 00:00: 23:59 mg total) Medica l tablet 00 :00 by mouth Center nightly. Ditropan Ditropan Yes Elaina 1/[address] 9-05 [place] [facility] - 00:[facility]: [facility] Clinics Testosteron Testosteron Yes Elaina [address] e Cypionate e Cypionate 1-03 [place] [facility] - 00:00: Mem[facility] 00 l Outpati [...] Elaina [address] [facility] Chloride Chloride [place] with food [facility] - P[facility] ER P[facility] ER [facility] ent Clinics Gabapentin Gabapentin Yes Elaina [address] [place] [facility] [...] Elaina [address] XL XL [place] in the [facility]ukes - morning [facility] l Outpati ent Clinics Hydrochloro Hydrochloro Yes Elaina [address] thiazide thiazide [place] in the L ukes - morning [facility] Vitamin Vitamin Yes Elaina not [facility] T63-[id number] G10-Mwgkh [place] defined [facility] - Acid Acid [facility] Zoloft Zoloft Yes Elaina [address] [facility] Pantoprazol Pantoprazol Yes Elaina [address] e Sodium e Sodium [place] - [facility] Nuvigil Nuvigil Yes Elaina [address] [place] in the [facility] - [facility] Omeprazole Omeprazole Yes Elaina [address] [place] [facility] Vital Signs Vital Name Observation Time Observation Value Comments Source HEIGHT 2020-04-04 00:00:00 182.9 cm WEIGHT 2020-04-04 00:00:00 97.9 kg Body height 2021-08-16 22:23:00 175.3 cm [facility] Body weight 2021-08-16 22:23:00 93.895 kg [facility] BMI 2021-08-16 22:23:00 30.57 kg/m2 [facility] HEIGHT 2020-04-04 00:00:00 182.9 cm WEIGHT 2020-04-04 00:00:00 97.9 kg Procedures Procedure Date / Time Performed Performing Clinician Sourc e EXTERNAL PROVIDER 2021-09-12 06:01:00 Doctor Unassigned, No [facility] RECORDS Name [facility] MEDICAL 2021-08-28 06:01:00 Doctor Unassigned, No [facility] RELEASE/CLEARANCE Name [facility] FORMS Plan of Care Planned Activity Planned [...] 00:00:00 (1 of 1 - Medical Center [id number] PCV13) [code = PNEUMOCOCCAL 65+ YRS (1 of 1 - [id number] PCV13)] Future Scheduled 1992 SHINGLES VACCINES (1 [...] Clinicians Facility Department ID 2021-09-13 [facility] [id number] 12:50:58 [id number] [facility] 2021-09-13 Outpatient STLMLC [facility] [id number] 12:29:13 [id number] [facility] 2021-09-13 Outpatient Tomas [facility] [id number] [facility] 12:24:25 [place] [id number] [facility] 2021-09-13 Outpatient Sweeney [facility] [id number] 11:21:20 [place] [id number] [facility] 2021-09-01 [id number] Univers 15:41:48 ML [facility] 2020-04-05 Inpatient ER ION SLE Neurology [id number] [facility] 02:12:00 MADELYN 2020-01-19 Inpatient Joaquín, ESTELAPM LABO [id number] [facility] 16[facility]00 [facility] [id number] [facility] 2021-11-07 2021-11-07 Emergency E VICTORIA, MHKM MHKM 7500 Memoria 14:09:00 17:46:00 CORAZON Hoffman [facility] l 2021-11-06 2021-11-06 Outpatient ERICKSON_R [facility] [id number] [place] 11:01:00 11:01:00 321 [facility] 2021-11-06 2021-11-06 Outpatient Jared, [facility] [id number] 00:00:00 00:00:00 [place] [id number] Barber [id number] 2021-11-06 Outpatient Jared, [facility] [id number] 00:00:00 00:00:00 [place] [id number] [place] [id number] 2021-11-03 2021-11-03 Outpatient ERICKSON_R [facility] [id number] [place] 02:00:00 02:00:00 318 [facility] 2021-11-03 2021-11-03 Outpatient Jared, [facility] [id number] 00:00:00 00:00:00 [place] [id number] Barber [id number] 2021-10-26 2021-10-26 Outpatient ERICKSON_R [facility] 86 - [place] 06:49:00 06:49:00 310 [facility] 2021-10-26 2021-10-26 Outpatient Sweeney, [facility] [id number] 00:00:00 00:00:00 [place] [id number] Barber [id number] 2021-10-26 2021-10-26 Outpatient Jared, [facility] [id number] 00:00:00 00:00:00 [place] [id number] [place] [id number] 2021-10-26 2021-10-26 Outpatient Jared, [facility] [id number] 00:00:00 00:00:00 [place] [id number] [place] [id number] 2021-10-24 2021-10-24 Outpatient ERICKSON_R [facility] [id number] [place] 02:59:00 02:59:00 308 [facility] 2021-10-20 2021-10-20 Outpatient ERICKSON_R [facility] [id number] [place] 02:23:00 02:23:00 304 [facility] 2021-10-20 2021-10-20 Outpatient Jared, [facility] [id number] 00:00:00 00:00:00 [place] [id number] [place] [id number] 2021-09-30 2021-09-30 Outpatient ERICKSON_R [facility] [id number] [place] 07:32:00 07:32:00 212 Commun i ty Hospita l [facility] 2021-09-12 2021-09-12 Orders Doctor OLIVIER [id number] Univers 00:00:00 00:00:00 Only Unassigned, GILBERTO [id number] ity of [place] [facility] [id number] Patel as [phone] [address] 2021-09-08 2021-09-08 [facility] [id number] Univers 14:45:00 14:45:00 ML [facility] 2021-09-08 2021-09-08 [facility] [id number] Univers 13:30:00 13:30:00 ML [id number] [facility] 2021-08-28 2021-08-28 Orders Doctor OLIVIER [id number] Univers 00:00:00 00:00:00 Only Unassigned, GILBERTO [id number] ity of [place] [facility] [id number] Patel as [phone] [address] 2021-08-26 2021-08-26 Outpatient ERICKSON_R [facility] [address] [place] 04:34:00 04:34:00 108 Commun i ty H[facility] Clinics 2021-08-16 2021-08-16 Office Catracho [facility] [id number] Univers 16:15:00 16:43:15 Visit Ml [facility] [id number] it y ck ALVAREZ [id number] Patel as BRANDNO?BLEA [phone] [address] OFFICE BUILDING 2021-07-22 2021-07-22 Outpatient ERICKSON_R [facility] 86 - [place] 05:22:00 05:22:00 204 [facility] 2021-07-10 2021-07-10 Outpatient ERICKSON_R [facility] 86 [place] 11:19:00 11:19:00 122 [facility] 2021-07-10 2021-07-10 Outpatient Jared [facility] [id number] 00:00:00 00:00:00 [place] [id number] Barber [id number] 2021-07-06 ambulatory STLMLC [facility] [id number] [facility] 2021-05-03 2021-05-03 Outpatient STLMLC [facility] [id number] [facility] 2021-04-28 2021-04-28 Outpatient ERICKSON_R [facility] [id number] - [place] 04:22:00 04:22:00 910 [facility] i [facility] 2021-04-28 2021-04-28 Outpatient Jared [facility] [id number] 00:00:00 00:00:00 [place] [id number] Barber [id number] 2021-04-28 2021-04-28 Outpatient STLMLC [facility] [id number] [facility]00 [facility] 2021-04-18 2021-04-18 Outpatient ERICKSON_R [facility] [id number] [place] 01:12:00 01:12:00 831 [facility] i [facility] 2021-03-14 2021-03-14 Outpatient ERICKSON_R [facility] [id number] [place] 12:57:00 12:57:00 727 [facility] 2021-01-13 2021-01-13 Outpatient ERICKSON_R [facility] [id number] [place] 02:36:00 02:36:00 528 [facility] 2021-01-10 2021-01-10 Outpatient [facility] [id number] [facility]00 [facility] 2021-01-09 2021-01-09 Outpatient ERICKSON_R [facility] [id number] [place] 10:40:00 10:40:00 524 [facility] 2020-12-29 2020-12-29 Outpatient ERICKSON_R [facility] [id number] [place] 01:03:00 01:03:00 513 [facility] Clinics 2020-12-29 2020-12-29 Outpatient ERICKSON_R [facility] [id number] [place] 01:03:00 01:03:00 518 [facility] Clinics 2020-11-29 2020-11-29 Outpatient [facility] [id number] [facility]00 [facility] 2020-11-24 2020-11-24 Outpatient ERICKSON_R [facility] [id number] [place] 01:02:00 01:02:00 408 [facility] Clin[facility] 2020-10-15 2020-10-15 Outpatient ERICKSON_R [facility] [id number] [place] 01:02:00 01:02:00 227 Commun i [facility] Clin[facility] 2020-10-13 2020-10-13 Outpatient ERICKSON_R [facility] [id number] [place] 09:17:00 09:17:00 225 [facility] 2020-10-10 2020-10-10 Outpatient ERICKSON_R [facility] [id number] [place] 03:46:00 03:46:00 222 [facility] 2020-10-10 2020-10-10 Outpatient Jared [facility] [id number] 00:00:00 00:00:00 [place] [id number] Barber [id number] 2020-09-09 2020-09-09 Outpatient ERICKSON_R [facility] [id number] [place] 09:10:00 09:10:00 122 Commun i ty [facility]osp[facility] Clinics 2020-09-06 2020-09-06 Outpatient ERICKSON_R [facility] [id number] [place] 03:48:00 03:48:00 119 Commun i ty [facility] Clinics 2020-09-06 2020-09-06 Outpatient Jared [facility] [id number] 00:00:00 00:00:00 [place] [id number] Barber [id number] 2020-08-05 2020-08-05 Outpatient ERICKSON_R [facility] [id number] - [place] 01:02:00 01:02:00 218 Commun i ty [facility] Clinics 2020-08-05 2020-08-05 Outpatient ERICKSON_R [facility] [id number] [place] 01:02:00 01:02:00 112 Commun i ty [facility] Clinics 2020-04-29 2020-04-29 [facility] [id number] 16:00:00 16:00:00 t Specialty/U Tonia kes - Specialty rology Memori [facility] /Urology Clinic l Clinic Outpati ent Clinics 2020-04-29 2020-04-29 [facility] [id number] 13:00:00 13:00:00 t Specialty/U Tonia kes - Specialty rology Memori a /Urology Clinic l Clinic Outpati ent Clinics 2020-03-22 2020-03-22 Laboratory Lab, [facility] [id number] 14:05:14 14:25:14 Only Fam Pob I [facility] [id number] Theodore [id number] Rickey [phone] nal [address] 2020-01-28 2020-01-28 Out[facility] [id number] 13:15:00 13:15:00 t Specialty/U Tonia kes - Specialty rology Memori a /Urology Clinic l Clinic Outpati ent Clinics 2020-01-25 2020-01-25 [facility] [id number] 13:46:00 13:46:00 t Specialty/U Tonia kes - Specialty rology Memori a /Urology Clinic l Clinic Outpati ent Clinics 2020-01-23 2020-01-23 Outpatient Dabaghi, [facility] [id number] [facility] 09:30:00 09:30:[address] [facility] 2020-01-23 2020-01-23 Outpatient Dabaghi, [facility] [id number] [facility] 09:30:00 09:30:[address] [facility] 2019-12-28 2019-12-28 Outpatient [facility] [id number] 13:30:00 13:30:00 t Specialty/U Tonia kes - Specialty rology Memori a /[facility] l [facility] Results Test Description Test Time Test Comments Results Result Sourc e Comments FL, ESOPH, SWALLOW 2020-04-06 MBS w/parish FINAL REPORT PATIENT FUNCTION, WITH 14:54:00 SLPReason for ID: [id number] CINE OR VIDEO exam:->dsphagia EXAMINATION: /aspiration/CVA Modified [...] MDReport Verified Date/Time: 04/06/2020 14:54:40 Reading Location: [address] Transitional Reading Room C METABOLIC PANEL [...] NOT 1092) ACCURATE CRE ATININE CLEARANCE IN MS EDICTING GLOMERULAR FILT RATION RATE. ESTIMATED GFR IS NOT APPLICABLE FOR DIALYSIS PATIENTS. Shoulder Sawyer ID - PIAYA LTROPONIN [id number] 01:52:00 Test Item Value Reference Range Interpretation [...] failure, acidosis, acute neurological disease, and persistent tachyarrhythmia.Shoulder Sawyer ID - PIAYA LMR, BRAIN, WITHOUT [id number] 22:32:00Unlisted Reason for Exam - Click Yes [...] Date/Time: 04/05/2020 22:32:21 MR, MRA, BRAIN, WITHOUT [id number] 22:26:00Reason for exam:- >Ischemic Stroke EvaluationFINAL REPORT [...] is antegrade in both vertebral arteries. MRA kenaitze of [place]: There isno vessel occlusion, flow-limiting stenosis, or aneurysm in the intracranial carotid or vertebrobasilar arterial circulations. IMPRESSION: Negative intra- and extracranial MRAs. Signed: Etienne Mancia Verified Date/Time: 04/05/2020 22:26:03 MR, MRA, NECK, WITHOUT IV [id number] 22:26:00Reason for exam:->Ischemic Stroke EvaluationFINAL REPORT MRA head and neck without contrast. CLINICAL HISTORY: Stroke, follow up. Ischemic stroke evaluation. COMPARISON: None. TECHNIQUE: Two- and three- dimensional [id number] MRA images of the intra- and extracranial carotid and vertebral arterial circulations were obtained, from which maximal intensity projection 3-D reconstructions were created. FINDINGS: MRA neck:There is no vessel occlusion or NASCET-quantifiable stenosis in the extracranial carotid or vertebral arterial circulations. Flow is antegrade in both vertebral arteries. MRA kenaitze of [place]: There isno vessel occlusion, flow-limiting stenosis, or aneurysm in the intracranial carotid or vertebrobasilar arterial circulations. IMPRESSION: Negative intra- and extracranial MRAs. Signed: Etienne Mancia Verified Date/Time: 04/05/2020 22:26:03 HEMOGLOBIN [id number] 11:32:00 Test Item Value Reference Range Interpretation Comments HEMOGLOBIN A1C (BEAKER) (test code = 5.5 % 4.3-6.1 368) RAD, CHEST, 1 VIEW, NON [id number] 07:30:00Reason for exam:- >baselineShould this be performed at the bedside?->YesFINAL REPORT CLINICAL HISTORY: baseline TECHNIQUE: 1 view of the chest. ANTIONETTE RISON: None IMPRESSION: There are no focal infiltrates or effusions. Incidental note is made of an azygos lobe. The cardiomediastinal silhouette is magnified by technique. The osseous structures appearintact. Signed: Lisa Mobley [facility] Verified Date/Time: 04/05/2020 07:30:03 Reading Location: [facility] Radiology Reading Room HEPATIC FUNCTION [id number] 07:17:00 Test Item Value Reference Range Interpretation [...] (test code = 15 U/L 6-55 347) Shoulder Sawyer ID - DBFOLATE, [id number] 06:47:00 Test Item Value Reference Range Interpretation Comments FOLATE (BEAKER) (test code = 362) > ng/mL >=7.00 Shoulder Sawyer ID - EDASIVITAMIN [id number] 05:50:00 Test Item Value Reference Range Interpretation Comments VITAMIN B12 (BEAKER) (test code = 620 pg/mL 213-816 774) Shoulder Sawyer ID - EDASITSH/FREE T4 IF [id number] 05:50:00 Test Item Value Reference Range Interpretation Comments THYROID STIMULATING HORMONE 0.513 uIU/mL 0.350-4.940 (BEAKER) (test code = 772) Shoulder Sawyer ID - EDASITROPONIN [id number] 04:27:00 Test Item Value Reference Range Interpretation [...] failure, acidosis, acute neurological disease, and persistent tachyarrhythmia.Shoulder Sawyer ID - EDASILIPID [id number] 04:24:00 Test Item Value Reference Range Interpretation [...] Borderline 130-159 High 160-189 Very High >=190 Shoulder Sawyer ID - EDASIBASIC METABOLIC [id number] 04:24:00 Test Item Value Reference Range Interpretation [...] S NOT APPLICABLE FOR DIALYSIS PATIEN TS. Shoulder Sawyer ID - [id number] 04:12:00 Test Item Value Reference Range Interpretation Comments PARTIAL THROMBOPLASTIN TIME 30.4 seconds 22.5-36.0 (BEAKER) (test code = 760) PROTHROMBIN [id number] 04:11:00 Test Item Value Reference Range Interpretation [...] mechanical heart valves.CBC W/PLT COUNT & AUTO [id number] 04:07:00 Test Item Value Reference Range Interpretation [...] 0-1 PERCENT (BEAKER) (test code = 2801) [id number] 07:24:00 Test Item Value Reference Range Interpretation Comments ACT-ISTAT (test code = ACTI) 208 SEC 74-137 H BASIC METABOLIC [id number] 08:47:00 Test Item Value Reference Range Interpretation [...] 8.7 MG/DL 8.4-10.2 N CA) CBC W/AUTO [id number] 08:17:00 Test Item Value Reference Range Interpretation [...] 0.00 K/mm3 0.0-0.1 N NRBC#) BASIC METABOLIC [id number] 06:47:00 Test Item Value Reference Range Interpretation [...] 0-189 mg/dL VERY HIGH...... ...>/= 190 mg/dL [id number] 06:47:00 Test Item Value Reference Range Interpretation Comments MAGNESIUM (test code = MAG) 1.9 MG/DL 1.6-2.3 N PROTHROMBIN [id number] 06:44:00 Test Item Value Reference Range Interpretation [...] syste payal embolism. 3.0 - 4.5 PTT [id number] 06:44:00 Test Item Value Reference Range Interpretation Comments PTT ACTIVATED (test code = APTT) 33.7 SECONDS 25.1-36.5 N BASIC METABOLIC [id number] 06:36:00 Test Item Value Reference Range Interpretation [...] LDL (test MG/DL 0-99 code = LDL) [id number] 06:36:00 Test Item Value Reference Range Interpretation Comments MAGNESIUM (test code = MAG) 1.9 MG/DL 1.6-2.3 N BASIC METABOLIC [id number] 06:35:00 Test Item Value Reference Range Interpretation [...] LDL (test MG/DL 0-99 code = LDL) [id number] 06:35:00 Test Item Value Reference Range Interpretation Comments MAGNESIUM (test code = MAG) 1.9 MG/DL 1.6-2.3 N BASIC METABOLIC [id number] 06:34:00 Test Item Value Reference Range Interpretation [...] LDL (test code = LDL) MG/DL 0-99 [id number] 06:34:00 Test Item Value Reference Range Interpretation Comments MAGNESIUM (test code = MAG) MG/DL 1.6-2.3 BASIC METABOLIC [id number] 06:32:00 Test Item Value Reference Range Interpretation [...] LDL (test code = LDL) MG/DL 0-99 [id number] 06:32:00 Test Item Value Reference Range Interpretation Comments MAGNESIUM (test code = MAG) MG/DL 1.6-2.3 CBC W/AUTO [id number] 06:20:00 Test Item Value Reference Range Interpretation [...] K/mm3 0.0-0.1 N NRBC#) Coronavirus 2019 nCoV [id number] 18:32:00 Test Item Value Reference Range Interpretation [...]
[2021-12-11 14:34] LABS: Absolute Lymphocytes (CBC) 0.5 K/uL (0.7-4.9); Hematocrit 29.6 % (39.6-49.0); Lymphocytes % 4.1 % (15.3-44.8); MPV 9.1 fL (7.6-11.3); RBC Red Blood Cell Count 3.29 M/uL (4.33-5.43)
[2021-12-11 14:39] LABS: Protime INR 1.18
[2021-12-11 14:47] LABS: Potassium 4.7 mmol/L (3.5-5.1)
--- NOTE | 2021-12-11 15:14 | EDPHYS ---
Physician Documentation [facility] Name: Jp Sun Age: 81 yrs Sex: Male : 1940 Arrival Date: 12/11/2021 Time: 13:46 Bed 19 Private MD: Stew Falcon ED Physician Sridhar Roth HPI: 12/11 14:52 This 81 yrs old Male presents to ER via Wheelchair with complaints of Abdominal rn Problem, Abscess. 14:52 The patient presents with an abscess of the abdomen. Description: draining, rn erythematous, fluctuant, swollen. 14:53 Onset: The symptoms/episode began/occurred 1 week(s) ago. Possible cause(s): unknown. rn Associated signs and symptoms: Pertinent positives: drainage, erythema, swelling, Pertinent negatives: fever. Modifying factors: the symptoms are alleviated by nothing, the symptoms are aggravated by squeezing the lesion and expressing the contents, touching. Severity of symptoms: At their worst the symptoms were moderate, in the emergency department the symptoms are unchanged. The patient has not experienced similar symptoms in the past. The patient has been recently seen by a physician:. Dr. Falcon sent patient for evaluation and admission, has had upper abd swelling and tenderness for 1 week, no fever, + drainage. No vomiting/diarrhea. Historical: - Allergies: 14:14 No Known Allergies; iw - PMHx: 14:14 Difficulty swallowing; Hypertension; TIA; iw - Immunization history:: Adult Immunizations up to date. - Family history:: not pertinent. - Social history:: Smoking status: Patient denies any tobacco usage or history of. - Hospitalizations: : No recent hospitalization is reported. ROS: 14:53 Constitutional: Negative for fever, chills, and weight loss, Eyes: Negative for injury, rn pain, redness, and discharge, Neck: Negative for injury, pain, and swelling, Cardiovascular: Negative for chest pain, palpitations, and edema, Respiratory: Negative for shortness of breath, cough, wheezing, and pleuritic chest pain, Abdomen/GI: + abdominal wall pain and swelling Back: Negative for injury and pain, MS/Extremity: Negative for injury and deformity, Skin: + redness and warmth of upper abd wall Neuro: Negative for headache, weakness, numbness, tingling, and seizure. Exam: 14:53 Constitutional: This is a well developed, well nourished patient who is awake, alert, rn and in no acute distress. Head/Face: Normocephalic, atraumatic. Eyes: Periorbital areas with no swelling, redness, or edema. Cardiovascular: Regular rate and rhythm. No pulse deficits. Respiratory: No increased work of breathing, no retractions or nasal flaring. Abdomen/GI: soft, + upper abd swelling and fluctuance with central open wound and purulent drainage, most of swelling and tenderness superior to feeding tube MS/ Extremity: Pulses equal, no cyanosis. Neuro: Awake and alert, GCS 15 Vital Signs: 14:12 BP 136 / 100; Pulse 65; Resp 16; Temp 98.0; Pulse Ox 96% on R/A; iw 16:00 BP 130 / 78; Pulse 57; Resp 16; Pulse Ox 95% ; bp 17:00 BP 131 / 71; Pulse 57; Resp 17; Pulse Ox 95% ; bp 17:59 BP 133 / 78; Pulse 56; Resp 17; Pulse Ox 95% ; bp 19:00 BP 135 / 87; Pulse 65; Resp 20; Pulse Ox 96% on R/A; lc1 20:45 Weight 81.65 kg (R); Height 5 ft. 11 in. (180.34 cm) (R); lc1 20:45 Body Mass Index 25.10 (81.65 kg, 180.34 cm) 1 MDM: 13:56 Patient medically screened. rn 15:12 Differential diagnosis: abscess, cellulitis. Data reviewed: vital signs, nurses notes, rn teacher test result(s), radiologic studies, and as a result, I will admit patient. Counseling: I had a detailed discussion with the patient and/or guardian regarding: the historical points, exam findings, and any diagnostic results supporting the discharge/admit diagnosis, lab results, radiology results, the need for further work-up and treatment in the hospital. Response to treatment: the patient's symptoms have mildly improved after treatment, and as a result, I will admit patient. Admission orders: after a detailed discussion of the patient's condition and case, the admit orders are written by me. 12/11 13:59 Order name: CBC with Diff; Complete Time: 18:24 rn 12/11 13:59 Order name: Basic Metabolic Panel; Complete Time: 15:11 rn 12/11 13:59 Order name: Protime (+inr); Complete Time: 15:11 rn 12/11 13:59 Order name: Ptt, Activated; Complete Time: 15:11 rn 12/11 13:59 Order name: Blood Culture Adult (2) rn 12/11 13:59 Order name: Lactate; Complete Time: 15:11 rn 12/11 13:59 Order name: IV Start; Complete Time: 15:19 rn 12/11 15:12 Order name: CT Abd/Pelvis - IV Contrast Only; Complete Time: 16:10 rn 12/11 15:37 Order name: SARS-COV-2 RT PCR (Document "Date of Onset" if Symptomatic); Complete Time: iw 18:24 12/11 16:35 Order name: CBC Smear Scan; Complete Time: 18:24 EDMS 12/11 17:55 Order name: Lactate Sepsis 2 HR Follow-up; Complete Time: 18:24 EDMS Administered Medications: 15:30 Drug: Clindamycin 600 mg Route: IVPB; Infused Over: 30 mins; Site: left antecubital; bp 17:52 Follow up: IV Status: Completed infusion; IV Intake: 100ml bp Disposition Summary: 12/11/21 15:13 Hospitalization Ordered Hospitalization Status: Inpatient Admission rn [facility] rn Condition: Stable rn Problem: new rn Symptoms: have improved rn Bed/Room Type: Standard rn Provider: Srinivas Brooks(12/11/21 16:11) rn Room Assignment: [facility](12/11/21 21:08) [facility] Diagnosis - Cutaneous abscess of abdominal wall rn - Cellulitis of abdominal wall rn Forms: - Medication Reconciliation Form rn - SBAR form rn Signatures: Dispatcher [employer] EDKathie Neal RN RN iw Sridhar Roth MD MD rn Roszak, Josh, PA PA jr8 Chiki Reyna RN RN bp Corrections: (The following items were deleted from the chart) 16:11 15:13 Stan Gore rn rn 21:08 15:13 rn danita
--- NOTE | 2021-12-11 15:14 | ER ---
Nurse's Notes [facility] Name: Jp Sun Age: 81 yrs Sex: Male : 1940 Arrival Date: 12/11/2021 Time: 13:46 Bed 19 Private MD: Stew Falcon Diagnosis: Cutaneous abscess of abdominal wall;Cellulitis of abdominal wall Presentation: 12/11 14:12 Chief complaint: Patient states: redness around PEG site. Coronavirus screen: At this iw time, the client does not indicate any symptoms associated with coronavirus-19. Ebola Screen: Patient negative for fever greater than or equal to 101.5 degrees Fahrenheit, and additional compatible Ebola Virus Disease symptoms Patient denies exposure to infectious person. Patient denies travel to an Ebola-affected area in the 21 days before illness onset. No symptoms or risks identified at this time. Risk Assessment: Do you want to hurt yourself or someone else? Patient reports no desire to harm self or others. Onset of symptoms was December 11, 2021. 14:12 Method Of Arrival: Wheelchair iw 14:12 Acuity: FRANCISCO 3 iw Triage Assessment: 15:19 General: Appears in no apparent distress. uncomfortable, Behavior is calm, cooperative, bp appropriate for age. Pain: Complains of pain in abdomen. EENT: No deficits noted. Neuro: No deficits noted. Cardiovascular: No deficits noted. Respiratory: No deficits noted. GI: Reports ABSCESS AROUND PEG. : No signs and/or symptoms were reported regarding the genitourinary system. Derm: No deficits noted. Musculoskeletal: No deficits noted. Historical: - Allergies: 14:14 No Known Allergies; iw - PMHx: 14:14 Difficulty swallowing; Hypertension; TIA; iw - Immunization history:: Adult Immunizations up to date. - Family history:: not pertinent. - Social history:: Smoking status: Patient denies any tobacco usage or history of. - Hospitalizations: : No recent hospitalization is reported. Screenin:23 Abuse screen: Denies threats or abuse. Denies injuries from another. Nutritional bp screening: No deficits noted. Tuberculosis screening: No symptoms or risk factors identified. Fall Risk None identified. Assessment: 15:23 General: SEE TRIAGE NOTE. bp 16:00 Reassessment: No changes from previously documented assessment. Patient and/or family bp updated on plan of care and expected duration. Pain level reassessed. ADMIT IN PROCESS. 17:00 Reassessment: No changes from previously documented assessment. Patient and/or family bp updated on plan of care and expected duration. Pain level reassessed. 18:00 Reassessment: PT SEEN BY HOSPITALIST. PT TO BE NPO AFTER MIDNIGHT FOR OR IN AM. bp Vital Signs: 14:12 BP 136 / 100; Pulse 65; Resp 16; Temp 98.0; Pulse Ox 96% on R/A; iw 16:00 BP 130 / 78; Pulse 57; Resp 16; Pulse Ox 95% ; bp 17:00 BP 131 / 71; Pulse 57; Resp 17; Pulse Ox 95% ; bp 17:59 BP 133 / 78; Pulse 56; Resp 17; Pulse Ox 95% ; bp 19:00 BP 135 / 87; Pulse 65; Resp 20; Pulse Ox 96% on R/A; lc1 20:45 Weight 81.65 kg (R); Height 5 ft. 11 in. (180.34 cm) (R); lc1 20:45 Body Mass Index 25.10 (81.65 kg, 180.34 cm) 1 ED Course: 13:46 Patient arrived in ED. as 13:46 Stew Falcon MD is Private Physician. as 13:56 Sridhar Roth MD is Attending Physician. rn 14:14 Triage completed. iw 15:12 Chiki Reyna, RN is Primary Nurse. bp 15:13 Stan Gore MD is Hospitalizing Provider. rn 15:22 Arm band placed on. bp 15:23 Patient has correct armband on for positive identification. Bed in low position. Call bp light in reach. Side rails up X2. 15:23 Inserted saline lock: 20 gauge in left antecubital area, using aseptic technique. Blood bp collected. 15:51 CT Abd/Pelvis - IV Contrast Only In Process Unspecified. EDMS 16:11 Srinivas Brooks is Hospitalizing Provider. rn 19:13 Primary Nurse role handed off by Chiki Reyna, RN mw2 19:15 Fabby Rodríguez is Primary Nurse. lc1 Administered Medications: 15:30 Drug: Clindamycin 600 mg Route: IVPB; Infused Over: 30 mins; Site: left antecubital; bp 17:52 Follow up: IV Status: Completed infusion; IV Intake: 100ml bp Intake: 17:52 IV: 100ml; Total: 100ml. bp Outcome: 15:13 Decision to Hospitalize by Provider. rn 23:00 Patient left the ED. lc1 Signatures: Dispatcher [employer] Rebecca Santos Irene RN RN iw Sridhar Roth MD MD rn Calhoun, Lisa lc1 Chiki Reyna RN RN bp [place], MyKena 2 Corrections: (The following items were deleted from the chart) 16:39 14:12 Chief complaint: Patient states: rened around PEG ite [facility]
[2021-12-11] MEDS ORDERED: CLINDAMYCIN 600MG/D5W 600 MG/50 ML BAG IV ONE (15:41)
--- NOTE | 2021-12-11 16:08 | RAD REPORT ---
EXAM DESCRIPTION: CTAbdomen Pelvis W Contrast - 12/11/2021 3:49 pm CLINICAL HISTORY: Abd wall abscess, eval for severity/depth COMPARISON: No comparisons TECHNIQUE: CT of the abdomen and pelvis was performed. All CT scans are performed using dose optimization technique as appropriate and may include automated exposure control or mA/KV adjustment according to patient size. FINDINGS: Lower chest: Coronary artery calcifications. Liver: Multiple low-density liver lesions which are likely benign. Biliary: No biliary ductal dilatation. Stomach: Gastrostomy tube in the stomach. Duodenum: No significant focal abnormality. Pancreas: No significant abnormality. Spleen: No significant abnormality. Adrenal: No suspicious lesions. Kidney/ureter: No hydronephrosis. No renal calculi. Retroperitoneum: No retroperitoneal adenopathy. Vascular: Aortic atherosclerosis. Bowel: Diverticulosis without diverticulitis.. Wall thickening of the distal sigmoid probably related to smooth muscle hypertrophy. No bowel obstruction. Peritoneum: No ascites or free air. Bladder: Grossly unremarkable. Reproductive: Hysterectomy Bones: No acute fracture. Other: Subcutaneous fluid in the anterior abdominal wall measuring approximately 8.4 x 2.5 cm. This i s just superior to the gastrostomy tube location and is superficial. This does not appear loculated. Skin thickening is present at the location as well. IMPRESSION: Nonloculated subcutaneous fluid in the anterior abdominal wall just above the gastrostom y tubing. This could be extravasated feedings. The imaging findings are not specific however but absc ess is considered less likely. The gastrostomy tube bumper does appear to be appropriately positioned in the stomach.
[2021-12-11 16:35] LABS: Blood Morphology Comment NOT SEEN (NOT SEEN); Platelet Estimate ADEQ; White Blood Cell Scan OK (OK)
--- NOTE | 2021-12-11 18:51 | P.HP ---
Certification for Inpatient Patient admitted to: Inpatient With expected LOS: >2 Midnights Practitioner: I am a practitioner with admitting privileges, knowledge of patient current condition, hospital course, and medical plan of care. Services: Services provided to patient in accordance with Admission requirements found in Title 42 Section 412.3 of the Code of Federal Regulations Patient History Date of Service: 12/11/21 Reason for admission: Abdominal wall abscess History of Present Illness: 81-year-old gentleman with a history of myasthenia gravis, oropharyngeal dysphagia status post PEG tube was directed to the emergency department by his surgeon Dr. Falcon due to a large abdominal wall abscess close to his PEG tube stoma. Dr. Falcon is planning I&D in the OR. Patient denies any pain, no fever. Blood work in the ED showed mild leukocytosis, mild elevated lactic acid. Patient is admitted for further management. Allergies No Known Allergies Allergy (Verified 11/16/21 15:32) Home Medications: Multivitamin [Daily Multivitamin] 1 each PO DAILY 02/03/13 Ascorbic Acid 1 tab PO DAILY 10/05/21 Ferrous Gluconate 324 mg PO DAILY 10/05/21 Pantoprazole [Protonix Tab*] 1 tab PO DAILY 10/05/21 Sertraline HCl 1.5 tab PO DAILY 10/05/21 Bupropion HCl [Wellbutrin] 75 mg OSTOMY BID #60 tablet 10/07/21 Gabapentin 7.5 ml PO BID #450 ml 10/07/21 Jevity 1.5 Song Liquid 237 ml FT 5XD bot 10/07/21 Mirabegron [Myrbetriq] 3 ml PO DAILY #120 jim.er.rec 10/07/21 Pyridostigmine Lytle 15 mg PO QID 11/16/21 Pyridostigmine Lytle [Regonol] 5 ml PO QID 11/16/21 predniSONE [Prednisone*] 80 mg PO DAILY 11/16/21 - Past Medical/Surgical History Diabetic: No -: hep cresolved -: high cholesterol -: renal stones -: Arrythmias -: Hypertension -: TIA -: foot surgery9 bone spurs -: Cardiac Stents Psychosocial/ Personal History: Patient lives at home with adult children - Family History Family History: Reviewed- Non-Contributory - Social History Alcohol use: No CD- Drugs: No Caffeine use: Yes Review of Systems Other: Except as documented, all other systems reviewed and negative. Physical Examination - Physical Exam General: Alert, In no apparent distress, Oriented x3 HEENT: PERRLA, Mucous membr. moist/pink, Sclerae nonicteric Neck: Supple, JVD not distended Respiratory: Clear to auscultation bilaterally, Normal air movement Cardiovascular: Regular rate/rhythm, Normal S1 S2, No murmurs, Edema (Bilateral lower extremities) Capillary refill: <2 Seconds Gastrointestinal: Normal bowel sounds, Soft and benign, Non-distended, Other (Abscess-mid abdomen with erythema spreading to involve the skin around the PEG tube.) Musculoskeletal: No erythema, No tenderness Integumentary: No rashes, No cyanosis Neurological: Normal strength at 5/5 x4 extr, Cranial nerves 3-12 intact - Studies Laboratory Data (last 24 hrs) 12/11/21 14:25: PT 13.0 H, INR 1.18, APTT 27.4 12/11/21 14:25: Sodium 143, Potassium 4.7, BUN 55 H, Creatinine 1.26, Glucose 129 H 12/11/21 14:25: WBC 11.5 H, Hgb 9.7 L, Hct 29.6 L, Plt Count 196 Assessment and Plan - Problems (Diagnosis) (1) Abdominal wall abscess Current Visit: Yes Status: Acute (2) Myasthenia gravis Current Visit: Yes Status: Acute (3) S/P percutaneous endoscopic gastrostomy (PEG) tube placement Current Visit: Yes Status: Acute (4) Dysphagia Current Visit: No Status: Acute (5) Hypertension Current Visit: No Status: Acute - Plan Admitted to the medical floor. Start IV cefepime and vancomycin. IV morphine as needed for pain IV hydration. Dr. Falcon-General surgery consult. Reconcile and continue patient medication for hypertension and myasthenia gravis. Monitor electrolytes and CBC. N.p.o. - Advance Directives Does patient have a Living Will: No Does patient have a Durable POA for Healthcare: No
[2021-12-11] MEDS ORDERED: MORPHINE 2 MG/ML SYR IV PRN (20:10)
[2021-12-11] MEDS ORDERED: ONDANSETRON 4 MG/2 ML VIAL IV PRN (20:10)
[2021-12-11] MEDS: VANCOMYCIN 1 GM in NA CHLORIDE 0.9% 250 ML IVPB SCH ×2 (20:10→21:00)
[2021-12-11] MEDS ORDERED: ACETAMINOPHEN 500 MG TAB PO PRN (20:10)
[2021-12-11] MEDS ORDERED: NA CHLORIDE 0.9% 1,000 ML IV SCH (20:10)
[2021-12-11 20:47] VITALS: BMI 25.1
[2021-12-11] MEDS ORDERED: VANCOMYCIN 1 GM/VIAL ONE (20:57)
[2021-12-11] MEDS ORDERED: NA CHLORIDE 0.9% 250 ML ONE (20:57)
[2021-12-11] MEDS ORDERED: NA CHLORIDE 0.9% 1,000 ML ONE (20:57)
[2021-12-11] MEDS ORDERED: NA CHLORIDE 0.9% 100 ML IV ONE (20:58)
[2021-12-11] MEDS ORDERED: CEFEPIME 1 GM/VIAL ONE (20:58)
[2021-12-11] MEDS: CEFEPIME 1 GM in NA CHLORIDE 0.9% 100 ML IV SCH (21:00)
[2021-12-11] MEDS ORDERED: VANCOMYCIN 500 MG/VIAL ONE (22:00)
[2021-12-11] MEDS ORDERED: VANCOMYCIN 1.5 GM in NA CHLORIDE 0.9% 500 ML IVPB SCH (22:00)
[2021-12-12 03:55] LABS: Hematocrit 27.1 % (39.6-49.0); Lymphocytes % 12.1 % (15.3-44.8); RBC Red Blood Cell Count 3.03 M/uL (4.33-5.43)
[2021-12-12 04:04] LABS: Magnesium 2.5 mg/dL (1.8-2.4); Phosphorus 2.7 mg/dL (2.5-4.9); Potassium 4.4 mmol/L (3.5-5.1)
--- NOTE | 2021-12-12 06:41 | P.PN ---
Date of Service: 12/12/21 Subjective: patient seen after OR, doing well denies nausea/vomiting ROS: 10 point ROS as noted above, otherwise negative Physical exam GEN: Alert, oriented, NAD HEENT: Normal conjunctiva, sclera anicteric CV: Regular rate and rhythm, trace b/l pedal edema Pulm: Non-labored respirations on room air ABD: surgical dressing in place, superior to PEG Neuro: Normal speech, normal affect Problem List Abdominal wall abscess Myasthenia gravis Dysphagia s/p PEG tube HTN general surgery consulted, s/p I&D today will discuss further with surgery , if plans for further washout awaiting cultures patient appears comfortable at this time pain medication as needed confirm home meds, restart as appropriate Code: full Dispo: home, 1-2 days, pending surgery, culture results Time Spent Managing Pts Care (In Minutes): 35
[2021-12-12] MEDS ORDERED: propofoL 200 MG/20 ML VIAL IV ONE (07:30)
[2021-12-12] MEDS ORDERED: LIDOCAINE 2% MPF 5 ML VIAL ONE (07:31)
[2021-12-12] MEDS ORDERED: FENTANYL CITR 100 MCG/2 ML ONE (07:31)
[2021-12-12] MEDS ORDERED: ONDANSETRON 4 MG/2 ML VIAL ONE ×2 (07:31→09:32)
[2021-12-12] MEDS: CEFEPIME 1 GM in NA CHLORIDE 0.9% 100 ML IV SCH ×2 (07:53→20:30)
--- NOTE | 2021-12-12 09:57 | P.BOP ---
Preoperative diagnosis: abdominal wall cellulitis/ abscess with necrotic skin/subQ Postoperative diagnosis: same Primary procedure: Excisional subQ debridemet abd wall [id number] Secondary procedure: Incision, drainage abd wall abscess Estimated blood loss: <10cc Specimen: pus culture Findings: see dicta Anesthesia: General Complications: None Transferred to: Recovery Room Condition: Good
[2021-12-12 10:58] VITALS: O2SAT 100
--- NOTE | 2021-12-12 13:06 | CON ---
Date of Consultation: 12/12/2021 Diagnosis: Abdominal wall abscess. History Of Present Illness: This is the case of a 81-year-old patient with multiple medical history including myasthenia gravis, oropharyngeal dysphagia, on chronic PEG tube. This PEG tube was placed apparently last September and has not been working well. Dr. Syed saw him yesterday and the gastr oenterologist in his office noticed to have abscess of the upper abdominal wall and sent to us for ev aluation, possible incision and drainage. The patient was seen in my office, but due to the large am ount of cellulitis, the patient was referred to the hospital for admission for IV antibiotics and als o fully explained the need for I and D of that area. Also, we need some imaging in that region. The patient lives by himself. His is in a shelter. Review of Systems: He denies any fever, although states abdominal pain and red area. Denies any melena. Denies any dys uria, hematuria, hematochezia. See H and P. Allergies: NONE. Medications: Reviewed including prednisone, Wellbutrin, Protonix, Regonol. Past Medical History: Includes hepatitis C, high cholesterol, nephrolithiasis, cardiac arrhythmias, hypertension, TIAs. Past Surgical History: Surgeries include cardiac stents and foot surgery. Family History: Noncontributory. Social History: The patient lives at home. He does not smoke. He does not drink alcohol. Physical Examination: General: The patient is awake, alert. No distress. HEENT: Pupils anicteric. Neck: Supple. Chest: Clear. Abdomen: Soft and depressible. There is a PEG tube in the left upper site. Near that, there is an area about 20 x 15 cm of cellulitis present. There are 2 areas in the site of the PEG tube with fluc tuance present and evidence of an abscess. There is purulent discharge coming from the area. Some n ecrosis of the skin. Rectal: Deferred. Extremities: Good capillary refill. Laboratory Data: Blood work shows WBC count of 11.5, hemoglobin of 9.7. INR is 1.18. Chloride is 1 08. CAT scan of the abdomen and pelvis interpreted by Dr. Adame as no loculated subcutaneous fluid in the anterior abdomen just above the gastrostomy tube. The gastrostomy tube does appear to be positio johnny inside of the stomach. Assessment: A 81-year-old patient with abdominal wall abscess near the PEG tube. The PEG tube seems to be not working since September. Definitely has cellulitis, he has an abscess. The question if th ere is any fluid in that area. We will about to find that once we drained the abscess. If that is t he case, then we may have to consider some other alternatives for feeding. The patient fully explain ed the benefits, alternatives, and risks, which include, but not limited to infection, bleeding, annia ge to adjacent structures, anesthesia complication, nonhealing wound, NH and even . He also und erstands this may not relieve any symptoms. He might need more than one surgical intervention, more than one debridement. He has home health that goes to his home once a week. We might have to use it now daily for dressing changes when he clinically improves and goes home. BRIGHT/MARGAUX Voice ID: [id number] Report ID: [id number]
[2021-12-12] MEDS ORDERED: VANCOMYCIN 1.5 GM in NA CHLORIDE 0.9% 500 ML IVPB SCH ×4 (20:00)
--- NOTE | 2021-12-12 21:27 | OP ---
Date of Procedure: 12/12/2021 Surgeon: Stew Falcon MD Preoperative Diagnosis: Abdominal wall cellulitis abscess with necrotic subcutaneous skin tissue. P atient also have a PEG tube near that area. Postoperative Diagnosis: Abdominal wall cellulitis abscess with necrotic subcutaneous skin tissue. Patient also have a PEG tube near that area. Procedure: Excisional subcutaneous debridement of abdominal wall and necrotic skin and subcutaneous tissues and areas about 15 x 12 cm with incision and drainage of abdominal wall abscess in that regio n. Estimated Blood Loss: Less than 10 cc. Specimen: Pus culture. Findings: Patient has abscess come surrounding at least half of the PEG tube area in the right, left and epigastric abdominal wall. The fascia seems to be intact. The subcutaneous tissue seemed to be necrotic and all that area removed with pus removed. No intraabdominal abscess fill, looks like it is just outside the muscle. This go near the area of the PEG tube and although I do not see inside t he stomach at this moment, the PEG tube is really nearby. Anesthesia: General plus local. Indication: This is a case of 81-year-old patient, who comes to us with cellulitis of the abdominal wall. The patient has a PEG tube placed in September. He is doing good. Recently, it showed some re dness over the area, admitted to the hospital with cellulitis and abscess and a surgical consult was obtained for debridement. Benefits, alternatives, and risks were fully explained to the patient whic h include, but not limited to, infection, bleeding, damage to adjacent structures, anesthesia complic ation, nonhealing wound, [place], and even . He also understands this may not relieve his symptoms. He might need more than one surgical intervention. He need a PEG tube in. He has history of myasth enia gravis with dysphagia. At the same time, I told him that sometimes that access of foreign body may not heal appropriately. If that is the case, we might have [facility] He understood, signed a consent. Description Of Procedure: Patient was brought to the operating room, placed in supine position. Ane sthesia was done without complication. Abdominal dennis were prepped and draped in the usual sterile fashion. We have a large area as described above of fluctuance, necrotic subcutaneous tissue. When I removed all that area, it goes all the way down to fascia of the muscle but does not penetrate the muscle. The area was debrided. All the necrotic tissue was removed. The PEG tube was nearby in the lower border of it, palpated right in that region, although the opening in the fascia itself seems t o be adequate. Area was irrigated. Hemostasis was obtained and the area was packed with wet-to-dry dressing. Patient tolerated the procedure well. Patient sent to Recovery in stable condition. We w ill see how this area mature or delineate. We would see that if it does not heal, then PEG tube shou ld be removed. BRIGHT/MARGAUX Voice ID: [id number] Report ID: [id number]
[2021-12-13 04:13] LABS: Absolute Lymphocytes (CBC) 1.2 K/uL (0.7-4.9); Hematocrit 29.1 % (39.6-49.0); Lymphocytes % 13.6 % (15.3-44.8); MPV 8.3 fL (7.6-11.3); RBC Red Blood Cell Count 3.25 M/uL (4.33-5.43)
[2021-12-13 04:24] LABS: Urine Appearance Clear (Clear); Urine Bilirubin Negative (Negative); Urine Blood Negative (Negative); Urine Color Yellow (Yellow); Urine Glucose Negative (Negative); Urine Protein Negative (Negative); Urine Urobilinogen 0.2 mg/dL (0.2-1.0); Urine pH 7.5 (5.0-7.0)
[2021-12-13 04:42] LABS: Urine Microscopic Reflex NO UMIC
[2021-12-13 04:50] LABS: Potassium 4.4 mmol/L (3.5-5.1)
[2021-12-13 05:01] LABS: Magnesium 2.2
--- NOTE | 2021-12-13 07:10 | P.PN ---
Date of Service: 12/13/21 Subjective: ROS: 10 point ROS as noted above, otherwise negative Physical exam GEN: Alert, oriented, NAD HEENT: Normal conjunctiva, sclera anicteric CV: Regular rate and rhythm, trace b/l pedal edema Pulm: Non-labored respirations on room air ABD: surgical dressing in place, superior to PEG Neuro: Normal speech, normal affect Problem List Abdominal wall abscess Myasthenia gravis Dysphagia s/p PEG tube HTN general surgery consulted, s/p I&D today will discuss further with surgery , if plans for further washout awaiting cultures patient appears comfortable at this time pain medication as needed confirm home meds, restart as appropriate Code: full Dispo: home, 1-2 days, pending surgery, culture results Time Spent Managing Pts Care (In Minutes): 35
[2021-12-13] MEDS ORDERED: GABAPENTIN 250 MG/5 ML PO SCH (09:00)
[2021-12-13] MEDS ORDERED: MIRABEGRON PO SCH (09:00)
[2021-12-13] MEDS ORDERED: SERTRALINE HCL 50 MG TAB PO SCH (09:00)
[2021-12-13] MEDS ORDERED: PYRIDOSTIGMINE 60 MG TABLET PO SCH (09:00)
[2021-12-13] MEDS ORDERED: Pantoprazole (granules) 40 MG/BLIST PACKET FT SCH (09:00)
[2021-12-13] MEDS ORDERED: Bupropion Hcl [Wellbutrin] 75 MG Tablet FT SCH (09:00)
[2021-12-13] MEDS ORDERED: PANTOPRAZOLE 40MG TABLET PO SCH (09:00)
[2021-12-13] MEDS: CEFEPIME 1 GM in NA CHLORIDE 0.9% 100 ML IV SCH (10:10)
[2021-12-13] MEDS ORDERED: JEVITY 1.5 CAL LIQUID 1,000 ML BOT FT SCH (11:00)
--- NOTE | 2021-12-13 12:57 | RAD REPORT ---
EXAM DESCRIPTION: RAD - Barium Swallow Modified - 12/13/2021 12:40 pm CLINICAL HISTORY: failed swallow prior.cough FINDINGS: Laryngeal pentration: cleared with nectar puree, not cleared with honey and nectar by stra w aspiration: cough with half barium tablet with nectar by cup and sequential sips pharyngeal residue: vallecular with mild-mod all consistencies , pyriform with trace -mild all consis tencies , posterior wall with trace nectar and honey other : thin posterior pharyngeal wall , reduced hyolaryngeal excursion, reduced epiglottic deflectio n, esophageal spasming throughout , moderate -severe dysmotility ,mild esophageal retropulsion fluoro time 5.37 min Twenty-six fluoroscopic spot images obtained
[2021-12-13 16:19] VITALS: BP 123/76; TEMP 98.1
--- NOTE | 2021-12-13 16:21 | P.DS ---
Admission Date: 12/11/21 Discharge Date: 12/13/21 Disposition: DC HOME/HOME HEALTH CARE Discharge Condition: GOOD Reason for Admission: Abdominal wall abscess Brief History of Present Illness: 81yo M, PMH: M. gravis, oropharyngeal dysphagia s/p PEG, who was directed to ED by his surgeon due to large abdominal wall abscess just superior to his PEG tube stoma. Patient denies any pain, no fever. Blood work in the ED showed mild leukocytosis, mild elevated lactic acid. Hospital Course: Patient was taken to OR by Dr. Falcon for abdominal wall abscess. Underwent I&D without complication. Cultures were sent. Patient was deemed stable for discharge home on bactrim and doxycycline. Follow up with Dr. Falcon in wound clinic. Daily wet to dry dressing changes. Home health was consulted to assist with daily dressing changes. Evaluated by speech therapy and recommended advancement to nectar thick liquids, mechanically soft ground solids, crushed meds in pureed Vital Signs/Physical Exam: Temp Pulse Resp BP Pulse Ox 98.1 F 71 16 123/76 98 12/13/21 16:00 12/13/21 16:00 12/13/21 16:00 12/13/21 16:00 12/13/21 16:00 Physical exam GEN: Alert, oriented, NAD HEENT: Normal conjunctiva, sclera anicteric CV: Regular rate and rhythm, trace b/l pedal edema Pulm: Non-labored respirations on room air ABD: surgical dressing in place, superior to PEG Neuro: Normal speech, normal affect Laboratory Data at Discharge: WBC 8.7 K/uL (4.3-10.9) 12/13/21 03:33 Hgb 9.5 g/dL (13.6-17.9) L 12/13/21 03:33 Hct 29.1 % (39.6-49.0) L 12/13/21 03:33 Plt Count 164 K/uL (152-406) 12/13/21 03:33 PT 13.0 SECONDS (9.5-12.5) H 12/11/21 14:25 INR 1.18 12/11/21 14:25 APTT 27.4 SECONDS (24.3-36.9) 12/11/21 14:25 Sodium 144 mmol/L (136-145) 12/13/21 03:33 Potassium 4.4 mmol/L (3.5-5.1) 12/13/21 03:33 BUN 31 mg/dL (7-18) H 12/13/21 03:33 Creatinine 0.93 mg/dL (0.55-1.3) 12/13/21 03:33 Glucose 59 mg/dL (74-106) L 12/13/21 03:33 Phosphorus 2.7 mg/dL (2.5-4.9) 12/12/21 03:05 Magnesium 2.2 12/13/21 03:33 Home Medications: Multivitamin [Daily Multivitamin] 1 each PO DAILY 02/03/13 Ascorbic Acid 1 tab PO DAILY 10/05/21 Ferrous Gluconate 324 mg PO DAILY 10/05/21 Pantoprazole [Protonix Tab*] 1 tab PO DAILY 10/05/21 Sertraline HCl 1.5 tab PO DAILY 10/05/21 Bupropion HCl [Wellbutrin] 75 mg OSTOMY BID #60 tablet 10/07/21 Gabapentin 7.5 ml PO BID #450 ml 10/07/21 Jevity 1.5 Song Liquid 237 ml FT 5XD bot 10/07/21 Mirabegron [Myrbetriq] 3 ml PO DAILY #120 jim.er.rec 10/07/21 Pyridostigmine [place] 15 mg PO QID 11/16/21 Pyridostigmine [place] [Regonol] 5 ml PO QID 11/16/21 predniSONE [Prednisone*] 80 mg PO DAILY 11/16/21 Doxycycline Monohydrate 20 ml FT BID 12 Days #480 ml 12/13/21 Sulfameth/Trimethoprim [Bactrim Pedi Suspension*] 20 ml FT BID 12 Days #480 ml 12/13/21 New Medications: Sulfameth/Trimethoprim [Bactrim Pedi Suspension*] 20 ml FT BID 12 Days #480 ml Doxycycline Monohydrate 20 ml FT BID 12 Days #480 ml Followup: Stew Falcon MD [Primary Care Provider] - 1-2 Weeks (call for an apointment) Time spent managing pt's care (in minutes): 45
--- NOTE | 2021-12-13 16:54 | PN ---
Date of Progress Note: 12/13/2021 Diagnosis: Status post abdominal wall abscess and drainage and debridement. Subjective: The patient is doing well. No complaint. Abdomen is soft and depressible. Intact surg ical site. Plan: Continue feeding. If we see that is leaking from around the area and cannot be used, then we may have to have a difficult decision to remove that PEG tube. If it is working and he is functional , then we are just going to continue with dressing changes hoping the tissue around the area heals go od enough to allow him to keep his PEG tube that he needs. When he gets discharged from the hospital , [facility]. BRIGHT/MARGAUX Voice ID: [id number] Report ID: [id number]
[2021-12-13] MEDS ORDERED: SULFAMETH/TRIMETHOPRIM 240 MG/30 ML UDBOT PO SCH (21:00)
[2021-12-13] MEDS ORDERED: SULFAMETH/TRIMETHOPRIM 240 MG/30 ML UDBOT FT SCH (21:00)
== END 2021-12-13 19:28 | disposition home health service (06) | DRG 264 ==
LOC: ER 13:38 → ERHOLD 19:12 → 4TH 22:25
PROVIDERS: ADMIT Internal Medicine; ATTEND Internal Medicine
PROC: 0JB80ZZ Excision of Abdomen Subcutaneous Tissue and Fascia, Open Approach (ICD-10-PCS; principal; 2021-12-12 09:00)
DX: I96 Gangrene, not elsewhere classified (principal); L02.211 Cutaneous abscess of abdominal wall; L03.311 Cellulitis of abdominal wall; G70.00 Myasthenia gravis without (acute) exacerbation; R13.12 Dysphagia, oropharyngeal phase; I10 Essential (primary) hypertension; B95.62 Methicillin resistant Staphylococcus aureus infection as the cause of diseases classified elsewhere; Z86.73 Personal history of transient ischemic attack (TIA), and cerebral infarction without residual deficits; Z93.1 Gastrostomy status; Z86.19 Personal history of other infectious and parasitic diseases; Z20.822 Contact with and (suspected) exposure to COVID-19
CPT/HCPCS: 36415; 74177; 74230; 80048; 81003; 83605; 83735; 84100; 85025; 85610; 85730; 87040; 87070; 87075; 87077; 87186; 87205; 88304; 92611; 96365; 96366; 99284; J0692; J2405; J2704; J3010; J3370; J7030; J7040; J7050; Q9967; U0003

== ENCOUNTER 2022-01-27 17:03 | Inpatient (IN) | payer OTHER ==
--- OUTSIDE RECORDS SUMMARY | 2022-01-27 17:06 | XMS REPORT | Continuity of Care Document ---
:1940 Author Organization [facility] t Address [address] [place] [address] Care Team Providers Name Role Phone Melquiades SWEENEY Primary Care Physician Unavailable Tomas Attending Clinician Unavailable Farzana HAYDEN Attending Clinician Unavailable MELY LEMON Attending Clinician Unavailable Garo Yanes Attending Clinician Unavailable EMELINA Attending Clinician Unavailable Negar KESSLER Attending Clinician Unavailable Doctor Unassigned, Name Attending Clinician Unavailable Catracho HERNANDEZ L Attending Clinician Lab, Fam Pob I Attending Clinician Unavailable Farazna HAYDEN Admitting Clinician Unavailable MELY LEMON Admitting Clinician Unavailable Physician, Primary or Family Admitting Clinician Unavailabl e ZAHRA_R Admitting Clinician Unavailable Payers Payer Name Policy Type Policy Number Effective Date Expiration Date S carey MEDICARE PART A \T\ [id number] 2007 B 00:00:00 [employer] COMMERCIAL [id number] 2013 OUT OF NETWORK 00:00:00 MEDICARE A B [id number] 2007 00:00:00 [employer] INDEMNITY NON [id number] 2013 CONTR 00:00:00 MEDICARE B-[place]: [id number] 2007 [employer] 00:00:00 [employer] (INDEMNITY) [id number] 2000 00:00:00 Problems Condition Condition Condition Status Onset Resolution Last Treating Co mments Source Name Details Category Date Date Treatment Clinician Date Ischemic Ischemic Disease Active 2019-0 Unive rs stroke stroke 818 ity of 00:00: [address] Allergies, Adverse Reactions, Alerts Allergy Allergy Status Severity Reaction(s) Onset Inactive Treating Comm ents Source Name Type Date Date Clinician No Known DA Active U 2019-0 [facility] [place] 00:00: [address] No Known DA Active U 2020-0 [facility]ie 6-05 [place] 00:00: [address] NO KNOWN Allergy Active [facility] NO KNOWN Drug Active Univers ALLERGIE Class ity of S [facility] Social History Social Habit Start Date Stop Date Quantity Comments Source Exposure to Not sure [facility] SARS-CoV-2 [facility] (event) [place] Alcohol intake 2021-09-08 2021-09-08 Lifetime University of 00:00:00 00:00:00 non-drinker [facility] (finding) [place] Tobacco use and 2021-08-16 2021-08-16 Never used Universit y of exposure 00:00:00 00:00:00 [facility] Sex Assigned At [birth year] Universit y of 00:00:00 00:00:00 [facility] Smoking Status Start Date Stop Date Source Never smoker [facility] Medications Ordered Filled Start Stop Current Ordering Indication Dosage Frequency Signature Comments Components Source Medication Medication Date Date Medication? Clinician (SIG) Name Name SERTraline 2020-08 Yes 125mg Take 125 Un teri 100 mg 2-29 mg by ity of tablet 16:16: mouth. [address] SERTraline 2020-08 Yes 125mg Take 125 Un teri 100 mg 2-29 mg by ity of tablet 16:16: mouth. [address] SERTraline 2020-08 Yes 125mg Take 125 Un teri 100 mg 2-29 mg by ity of tablet 16:16: mouth. [address] SERTraline 2020-08 Yes 125mg Take 125 Un teri 100 mg 2-29 mg by ity of tablet 16:16: mouth. [address] carvediloL 2020-08 Yes 25mg Take 25 mg U nivers 25 mg 2-29 by mouth. ity of tablet 16:16: [address] gabapentin 2020-08 Yes 400mg Take 400 Un teri 400 mg 2-29 mg by ity of capsule 16:16: mouth. [address] carvediloL 2020-08 Yes 25mg Take 25 mg U nivers 25 mg 2-29 by mouth. ity of tablet 16:16: [address] gabapentin 2020-08 Yes 400mg Take 400 Un teri 400 mg 2-29 mg by ity of capsule 16:16: mouth. [address] carvediloL 2020-08 Yes 25mg Take 25 mg U nivers 25 mg 2-29 by mouth. ity of tablet 16:16: [address] gabapentin 2020-08 Yes 400mg Take 400 Un teri 400 mg 2-29 mg by ity of capsule 16:16: mouth. [address] carvediloL 2020-08 Yes 25mg Take 25 mg U nivers 25 mg 2-29 by mouth. ity of tablet 16:16: [address] gabapentin 2020-08 Yes 400mg Take 400 Un teri 400 mg 2-29 mg by ity of capsule 16:16: mouth. [address] pantoprazol 2020-08 Yes Univer s e 40 mg EC 2-14 ity of tablet 00:00: [address] pravastatin 2020-08 Yes Univer s 40 mg 2-14 ity of tablet 00:00: [address] pantoprazol 2020-08 Yes Univer s e 40 mg EC 2-14 ity of tablet 00:00: [address] pravastatin 2020-08 Yes Univer s 40 mg 2-14 ity of tablet 00:00: [address] pantoprazol 2020-08 Yes Univer s e 40 mg EC 2-14 ity of tablet 00:00: [address] pravastatin 2020-08 Yes Univer s 40 mg 2-14 ity of tablet 00:00: [address] pantoprazol 2020-08 Yes Univer s e [...] 1-18 ity of 00:00: [facility] clopidogreL 2020-08 Yes Univer s 75 mg 0-21 ity of tablet 00:00: [facility] amLODIPine 2020-08 Yes Univers 5 mg tablet 0-21 ity of 00:00: [place] [facility] clopidogreL 2020-08 Yes Univer s 75 mg 0-21 ity of tablet 00:00: [place] [facility] amLODIPine 2020-08 Yes Univers 5 mg tablet 0-21 ity of 00:00: [place] [facility] clopidogreL 2020-08 Yes Univer s 75 mg 0-21 ity of tablet 00:00: [place] [facility] amLODIPine 2020-08 Yes Univers 5 mg tablet 0-21 ity of 00:00: [place] [facility] clopidogreL 2020-08 Yes Univer s 75 mg 0-21 ity of tablet 00:00: [place] [facility] amLODIPine 2020-08 Yes Univers 5 mg tablet 0-21 ity of 00:00: [place] [facility] aspirin 81 2019-0 2020- No 81mg QD Take [address] [facility] chewable 8-20 08-20 tablet (81 L ukes tablet 00:00: 23:59 mg total) Medic al 00 :00 by mouth Center daily. amLODIPine 2019-0 Yes 10mg QD Take [address] (NORVASC) 5 8-19 by mouth Luke s MG tablet 15:01: daily. Medica l [address] [place] gabapentin 2019-0 Yes 400mg QD Take [address] (NEURONTIN) 8-19 mg by [facility]ukes 400 MG 15:01: mouth Medical capsule 48 daily. [place] carvediloL 2019-0 Yes 25mg QD Take [address] (COREG) 25 8-19 by mouth Lukes MG tablet 15:01: daily. Medica l [address] [place] buPROPion 2019-0 Yes 300mg QD Take [address] (WELLBUTRIN 8-19 mg by Lukes XL) 300 MG 15:01: mouth Medica l 24 hr 48 daily. [place] tablet sertraline 2019-0 Yes 125mg QD Take [address] (ZOLOFT) 8-19 mg by Lukes 100 MG 15:01: mouth Medical tablet 48 daily. [place] pantoprazol 2019-0 Yes 40mg QD Take [address] e 8-19 by mouth Lukes (PROTONIX) 15:01: daily. Medic al 40 MG [address] [place] tablet multivitami Yes 1{tbl} QD Take [address] [facility] per 04-06 tablet by Lukes tablet 15:01: mouth Medical 48 daily. Center clopidogreL Yes 75mg QD Take [address] (PLAVIX) 75 04-06 by mouth Luke s mg tablet 15:01: daily. Medica l 48 Center atorvastati 2020- No 80mg QD Take [address] n (LIPITOR) 04-06 tablet (80 L ukes 80 MG 00:00: 23:59 mg total) Medica l tablet 00 :00 by mouth Center nightly. Ditropan Ditropan Yes Elaina 1/2 tablet Common 04-23 [facility] 00:00: - [facility] Testosteron Testosteron Yes Elaina 1 ml Common e Cypionate e Cypionate 08-21 [facility] 00:00: - [facility] Coreg Coreg Yes Elaina not Common Skylar defined [facility] Isosorbide Isosorbide Yes Elaina 1 tablet Common Mononitrate Mononitrate [place] in [place] Spirit ER ER [facility] Vitamin D3 Vitamin D3 Yes Elaina 1 capsule Common Skylar [facility] Potassium Potassium Yes Elaina 1 tablet Common Chloride Chloride Skylar with food Spirit [facility] ER [facility] Gabapentin Gabapentin Yes Elaina 1 capsule Common Skylar [facility] Zocor Zocor Yes Elaina 1 tablet Common Skylar in the [facility] evening [facility] Lotrisone Lotrisone Yes Elaina APPLY Com mon [place] TOPICALLY Spirit TO [facility] ONCE A DAY St AT BED [facility] Amlodipine Amlodipine Yes Elaina 1 tablet Common Besylate Besylate [place] Spi rit [facility] Wellbutrin Wellbutrin Yes Elaina 1 tablet Common XL XL [place] [facility] morning [facility] Hydrochloro Hydrochloro Yes Elaina 1 tablet Common thiazide thiazide [place] S pirit morning [facility] Vitamin Vitamin Yes Elaina not Common [id number] E48-Ruieo [place] defined Spirit Acid Acid [facility] Zoloft Zoloft Yes Elaina 1 tablet Common Sk[place] Spirit [facility] Pantoprazol Pantoprazol Yes Elaina 1 tablet Common e Sodium e Sodium [place] Spi rit [facility] Nuvigil Nuvigil Yes Elaina 1 tablet Comm on [place] [facility] morning [facility] Omeprazole Omeprazole Yes Elaina 1 capsule Common [place] [facility] Vital Signs Vital Name Observation Time Observation Value Comments Source HEIGHT 2020-04-04 00:00:00 182.9 cm WEIGHT 2020-04-04 00:00:00 97.9 kg Body height 2021-08-16 22:23:00 175.3 cm [facility] Body weight 2021-08-16 22:23:00 93.895 kg [facility] BMI 2021-08-16 22:23:00 30.57 kg/m2 [facility] HEIGHT 2020-04-04 00:00:00 182.9 cm WEIGHT 2020-04-04 00:00:00 97.9 kg Procedures Procedure Date / Time Performed Performing Clinician Sour e EXTERNAL PROVIDER 2021-09-12 06:01:00 Doctor Unassigned, No Univ [facility] RECORDS Name Medical [place] MEDICAL 2021-08-28 06:01:00 Doctor Unassigned, No [facility] RELEASE/CLEARANCE Name [facility] FORMS Plan of Care Planned Activity Planned Date Details Comments Source Future Scheduled 2021-04-[address] [facility] Test 00:00:00 (Season Ended) [code = [facility] INFLUENZA VACCINE (Season Ended)] Future Scheduled 2020-08-[address] [facility] Test 00:00:00 (12+) [code = Medical Center DEPRESSION SCREENING (12+)] Future Scheduled 2008-11-[address] [facility] Test 00:00:00 WELLNESS (YEAR 2 or Medical Center FIRST YEAR if no IPPE) [code = MEDICARE ANNUAL WELLNESS (YEAR 2 or FIRST YEAR if no IPPE)] Future Scheduled 2007-12-05 PNEUMOCOCCAL 65+ YRS [facility] Test 00:00:00 (1 of 1 - Medical [place] [id number]) [code = PNEUMOCOCCAL 65+ YRS (1 of 1 - [id number] PCV13)] Future Scheduled 1992 SHINGLES VACCINES ([address] [facility] Test 00:00:00 of 2) [code = SHINGLES Medic al Center VACCINES (1 of 2)] Future Scheduled 1961 DTAP/TDAP/TD VACCINES [facility] Test 00:00:00 (1 - Tdap) [code = Medical C enter DTAP/TDAP/TD VACCINES (1 - Tdap)] Future Scheduled 1960 HEPATITIS C SCREENING [facility] Test 00:00:00 [code = HEPATITIS C Medical Center SCREENING] Encounters Start End Encounter Admission Attending Care Care Encounter Source Date/Time Date/Time Type Type Clinicians Facility Department ID 2021-09-13 Outpatient [facility] [id number] Common 12:50:58 [id number] [facility] 2021-09-13 Outpatient [facility] [id number] Common 12:29:13 [id number] [facility] 2021-09-13 Outpatient zJayjose don [facility] [id number] Common 12:24:25 , [place] [id number] [facility] 2021-09-13 Out[facility] [id number] Common 11:21:20 [place] [id number] [facility] 2021-09-01 Inpatient R CATRACHO [facility] [id number] Univers 15:41:48 ML venus [facility] 2020-04-05 Inpatient ER BERSHAD, [facility] [id number] [facility] 02:12:00 MADELYN 2020-01-19 Inpatient Dabaghi, HCAPM LABO [id number] [facility] 16:02:00 Sali [id number] [facility] 2022-01-18 2022-01-18 Outpatient EMELINA [facility] [id number] [place] 03:05:00 03:05:00 [facility] 2022-01-18 2022-01-18 Outpatient Zahra [facility] [id number] 00:00:00 00:00:00 [place] [id number] Barber [id number] 2022-01-09 2022-01-09 Outpatient ERICKSON_R [facility] [id number] [place] 01:07:00 01:07:00 524 [facility] 2022-01-09 2022-01-09 Outpatient Zahra, [facility] [id number] 00:00:00 00:00:00 [place] [id number] Barber [id number] 2021-12-26 Outpatient ERICKSON_R [facility] [id number] [place] 03:29:00 03:29:00 510 [facility] 2021-12-26 2021-12-26 Outpatient Zahra, [facility] [id number] 00:00:00 00:00:00 [place] [id number] Barber [id number] 2021-11-07 2021-11-07 Emergency E [facility] [id number] [place] 14:09:00 17:46:00 CORAZON l Praneeth Hoffman [facility] 2021-11-06 2021-11-06 Outpatient ERICKSON_R [facility] [id number] [place] 11:01:00 11:01:00 321 [facility] 2021-11-06 2021-11-06 Outpatient Zahra, [facility] [id number] 00:00:00 00:00:00 [place] [id number] Barber [id number] 2021-11-06 Outpatient Sweeney, [facility] [id number] 00:00:00 00:00:00 [place] [id number] Barber [id number] 2021-11-03 2021-11-03 Outpatient ERICKSON_R [facility] 86 [place] 02:00:00 02:00:00 318 [facility] 2021-11-03 2021-11-03 Outpatient Sweeney, [facility] [id number] 00:00:00 00:00:00 [place] [id number] Barber [id number] 2021-10-26 2021-10-26 Outpatient ERICKSON_R [facility] [id number] - [place] 06:49:00 06:49:00 310 [facility] 2021-10-26 2021-10-26 Outpatient Zahra [facility] [id number] 00:00:00 00:00:00 [place] [id number] Barber [id number] 2021-10-26 2021-10-26 Outpatient Zahra [facility] [id number] 00:00:00 00:00:00 [place] [id number] Barber [id number] 2021-10-26 2021-10-26 Outpatient Zahra [facility] [id number] 00:00:00 00:00:00 [place] [id number] Barber [id number] 2021-10-24 2021-10-24 Outpatient ERICKSON_R [facility] [id number] - [place] 02:59:00 02:59:00 308 [facility] 2021-10-20 2021-10-20 Outpatient ERICKSON_R [facility] [id number] [place] 02:23:00 02:23:00 304 [facility] 2021-10-20 2021-10-20 Outpatient Zahra [facility] [id number] 00:00:00 00:00:00 [place] [id number] Barber [id number] 2021-09-30 2021-09-30 Outpatient ERICKSON_R [facility] [id number] - [place] 07:32:00 07:32:00 212 [facility] 2021-09-12 2021-09-12 Denny AGUAYO [id number] Univers 00:00:00 00:00:00 Only Unassigned, GILBERTO [id number] ity of [place] [facility] [id number] Patel as [id number] [address] 2021-09-08 2021-09-08 Outpatient Tomás HAYDEN [facility] [id number] Univers 14:45:00 14:45:00 ML [facility] 2021-09-08 2021-09-08 Outpatient R CATRACHO [facility] [id number] Univers 13:30:00 13:30:00 ML [id number] [facility] 2021-08-28 2021-08-28 Orders Doctor OLIVIER [id number] Univers 00:00:00 00:00:00 Only UnassignedGILBERTO [id number] ity of [place] [facility] [id number] Patel as [id number] [address] 2021-08-26 2021-08-26 Outpatient ERICKSON_R [facility] 86 [place] 04:34:00 04:34:00 108 [facility] 2021-08-16 2021-08-16 Office Catracho [facility] [id number] Univers 16:15:00 16:43:15 Visit Ml [facility] [id number] it y of [place] [id number] Patel as BRANDON?BLEA [id number] [address] MEDICAL OFFICE BUILDING 2021-07-22 2021-07-22 Outpatient ERICKSON_R [facility] [id number] - [place] 05:22:00 05:22:00 204 [facility] 2021-07-10 2021-07-10 Outpatient ERICKSON_R [facility] [id number] - [place] 11:19:00 11:19:00 122 [facility] 2021-07-10 2021-07-10 Outpatient Zahra [facility] [id number] 00:00:00 00:00:00 [place] [id number] Barber [id number] 2021-07-06 ambulatory [facility] [id number] Common 00:00:00 00:00:00 [facility] 2021-05-03 2021-05-03 Outpatient STLMLC [facility] [id number] Common 00:00:00 00:00:00 [facility] 2021-04-28 2021-04-28 Outpatient ERICKSON_R [facility] [id number] [place] 04:22:00 04:22:00 910 [facility] 2021-04-28 2021-04-28 Outpatient [facility]LML[facility] [id number] Common 00:00:00 00:00:00 [facility] 2021-04-28 2021-04-28 Outpatient Zahra, [facility] [id number] 00:00:00 00:00:00 [place] [id number] Barber [id number] 2021-04-18 2021-04-18 Outpatient ERICKSON_R [facility] [id number] [place] 01:12:00 01:12:00 831 [facility] 2021-03-14 2021-03-14 Outpatient ERICKSON_R [facility] [id number] [place] 12:57:00 12:57:00 727 [facility] 2021-01-13 2021-01-13 Outpatient ERICKSON_R [facility] [id number] [place] 02:36:00 02:36:00 528 [facility] 2021-01-10 2021-01-10 Outpatient [facility]C [facility] [id number] Common 00:00:00 00:00:00 [facility] 2021-01-09 2021-01-09 Outpatient ERICKSON_R [facility] [id number] [place] 10:40:00 10:40:00 524 [facility] 2020-12-29 2020-12-29 Outpatient ERICKSON_R [facility] [id number] [place] 01:03:00 01:03:00 513 [facility] 2020-12-29 2020-12-29 Outpatient ERICKSON_R [facility] [id number] [place] 01:03:00 01:03:00 518 [facility] 2020-11-29 2020-11-29 Outpatient [facility]C [facility] [id number] Common 00:00:00 00:00:00 [facility] 2020-11-24 2020-11-24 Outpatient ERICKSON_R [facility] [id number] [place] 01:02:00 01:02:00 408 [facility] 2020-10-15 2020-10-15 Outpatient ERICKSON_R [facility] [id number] [place] 01:02:00 01:02:00 227 [facility] 2020-10-13 2020-10-13 Outpatient ERICKSON_R [facility] [id number] [place] 09:17:00 09:17:00 225 [facility] 2020-10-10 2020-10-10 Outpatient ERICKSON_R [facility] [id number] [place] 03:46:00 03:46:00 222 [facility] 2020-10-10 2020-10-10 Out[facility] Sweeney[facility] [id number] 00:00:00 00:00:00 [place] [id number] Barber [id number] 2020-09-09 2020-09-09 Outpatient ERICKSON_R [facility] [id number] [place] 09:10:00 09:10:00 122 [facility] 2020-09-06 2020-09-06 Outpatient ERICKSON_R [facility] [id number] [place] 03:48:00 03:48:00 119 [facility] 2020-09-06 2020-09-06 Outpatient Sweeney, [facility] [id number] 00:00:00 00:00:00 [place]ks[place] [id number] Barber [id number] 2020-08-05 2020-08-05 Outpatient ERICKSON_R [facility] [id number] [place] 01:02:00 01:02:00 218 [facility] 2020-08-05 2020-08-05 Outpatient ERICKSON_R [facility] [id number] [place] 01:02:00 01:02:00 112 Commun i ty Hospita l [facility] 2020-04-29 2020-04-29 Outpatient Braz[place] [id number] Common 16:00:00 16:00:00 t Specialty/U Sp fitz Specialty rology - [facility] 2020-04-29 2020-04-29 Outpatient [facility] [id number] Common 13:00:00 13:00:00 t Specialty/U Sp fitz Specialty rology - [facility] 2020-03-22 2020-03-22 Laboratory Lab, [facility] [id number] 14:05:14 14:25:14 Only [facility] [id number] [place] [id number] Professio [id number] nal 0[address] 2020-01-28 2020-01-28 Outpatient Celestine [facility] [id number] Common 13:15:00 13:15:00 t Specialty/U Sp fitz Specialty rology - [facility] 2020-01-25 2020-01-25 Outpatient [place] [facility] [id number] Common 13:46:00 13:46:00 t Specialty/U Sp fitz Specialty rology - [facility] 2020-01-23 2020-01-23 Outpatient Dabaghi, [facility] [id number] [facility] 09:30:00 09:30:00 [facility] 2020-01-23 2020-01-23 Outpatient Dabaghi, [facility] [id number] [facility] 09:30:00 09:30:00 [facility] 2019-12-28 2019-12-28 Outpatient [facility] [id number] Common 13:30:00 13:30:00 t Specialty/U Sp fitz Specialty rology - [facility] Results Test Description Test Time Test Comments Results Result [facility] e Comments FL, ESOPH, SWALLOW 2020-04-06 MBS w/parish FINAL REPORT PATIENT FUNCTION, WITH 14:54:00 SLPAparna for ID: [id number] CINE OR VIDEO exam:->dsphagia EXAMINATION: /aspiration/CVA Modified [...] same day for further description. Signed: Quentin Menedzepcharles Verified Date/Time: 04/06/2020 14:54:40 Reading Location: [address] Transitional Reading Room C METABOLIC PANEL [...] NOT 1092) ACCURATE CRE ATININE CLEARANCE IN SC EDICTING GLOMERULAR FILT RATION RATE. ESTIMATED GFR IS NOT APPLICABLE FOR DIALYSIS PATIENTS. [employer] ID - PIAYA LTROPOANDREE [id number] 01:52:00 Test Item Value Reference Range Interpretation [...] failure, acidosis, acute neurological disease, and persistent tachyarrhythmia.[employer] ID - PIAYA LMR, BRAIN, WITHOUT [id number] 22:32:00Unlisted Reason for Exam - Click Yes [...] Date/Time: 04/05/2020 22:32:21 MR, MRA, BRAIN, WITHOUT [id number] 22:26:00Reason for exam:- >Ischemic Stroke EvaluationFINAL REPORT [...] is antegrade in both vertebral arteries. MRA [place]: There isno vessel occlusion, flow-limiting stenosis, or aneurysm in the intracranial carotid or vertebrobasilar arterial circulations. IMPRESSION: Negative intra- and extracranial MRAs. Signed: Etienne Mancia Verified Date/Time: 04/05/2020 22:26:03 MR, MRA, NECK, WITHOUT IV [id number] 22:26:00Reason for exam:->Ischemic Stroke EvaluationFINAL REPORT MRA head and neck without contrast. CLINICAL HISTORY: Stroke, follow up. Ischemic stroke evaluation. COMPARISON: None. TECHNIQUE: Two- and three- dimensional uaji-bz-ffaczd MRA images of the intra- and extracranial carotid and vertebral arterial circulations were obtained, from which maximal intensity projection 3-D reconstructions were created. FINDINGS: MRA neck:There is no vessel occlusion or NASCET-quantifiable stenosis in the extracranial carotid or vertebral arterial circulations. Flow is antegrade in both vertebral arteries. MRA [place]: There isno vessel occlusion, flow-limiting stenosis, or aneurysm in the intracranial carotid or vertebrobasilar arterial circulations. IMPRESSION: Negative intra- and extracranial MRAs. Signed: Etienne Mancia Verified Date/Time: 04/05/2020 22:26:03 HEMOGLOBIN [id number] 11:32:00 Test Item Value Reference Range Interpretation Comments HEMOGLOBIN A1C (BEAKER) (test code = 5.5 % 4.3-6.1 368) RAD, CHEST, 1 VIEW, NON [id number] 07:30:00Reason for exam:- >baselineShould this be performed at the bedside?->YesFINAL REPORT CLINICAL HISTORY: baseline TECHNIQUE: 1 view of the chest. ANTIONETTE RISON: None IMPRESSION: There are no focal infiltrates or effusions. Incidental note is made of an azygos lobe. The cardiomediastinal silhouette is magnified by technique. The osseous structures appearintact. Signed: Lisa Mobley MDReport Verified Date/Time: 04/05/2020 07:30:03 Reading Location: [facility] Radiology Reading Room HEPATIC FUNCTION [id number] 07:17:00 Test Item Value Reference Range Interpretation [...] (test code = 15 U/L 6-55 347) [employer] ID - DBFOLATE, [id number] 06:47:00 Test Item Value Reference Range Interpretation Comments FOLATE (BEAKER) (test code = 362) > ng/mL >=7.00 [employer] ID - EDASIVITAMIN [id number] 05:50:00 Test Item Value Reference Range Interpretation Comments VITAMIN B12 (BEAKER) (test code = 620 pg/mL 213-816 774) [employer] ID - EDASITSH/FREE T4 IF [id number] 05:50:00 Test Item Value Reference Range Interpretation Comments THYROID STIMULATING HORMONE 0.513 uIU/mL 0.350-4.940 (BEAKER) (test code = 772) [employer] ID - MADDISON [id number] 04:27:00 Test Item Value Reference Range Interpretation [...] failure, acidosis, acute neurological disease, and persistent tachyarrhythmia.[employer] ID - EDASILIPID [id number] 04:24:00 Test Item Value Reference Range Interpretation [...] Borderline 130-159 High 160-189 Very High >=190 [employer] ID - EDASIBASIC METABOLIC [id number] 04:24:00 Test Item Value Reference Range Interpretation [...] S NOT APPLICABLE FOR DIALYSIS PATIEN TS. [employer] ID - [id number] 04:12:00 Test Item Value Reference Range Interpretation Comments PARTIAL THROMBOPLASTIN TIME 30.4 seconds 22.5-36.0 (BEAKER) (test code = 760) PROTHROMBIN [id number] 04:11:00 Test Item Value Reference Range Interpretation [...] mechanical heart valves.CBC W/PLT COUNT & AUTO [id number] 04:07:00 Test Item Value Reference Range Interpretation [...] 0-1 PERCENT (BEAKER) (test code = 2801) [id number] 07:24:00 Test Item Value Reference Range Interpretation Comments ACT-ISTAT (test code = ACTI) 208 SEC 74-137 H BASIC METABOLIC [id number] 08:47:00 Test Item Value Reference Range Interpretation [...] 8.7 MG/DL 8.4-10.2 N CA) CBC W/AUTO [id number] 08:17:00 Test Item Value Reference Range Interpretation [...] 0.00 K/mm3 0.0-0.1 N NRBC#) BASIC METABOLIC [id number] 06:47:00 Test Item Value Reference Range Interpretation [...] 0-189 mg/dL VERY HIGH...... ...>/= 190 mg/dL [id number] 06:47:00 Test Item Value Reference Range Interpretation Comments MAGNESIUM (test code = MAG) 1.9 MG/DL 1.6-2.3 N PROTHROMBIN [id number] 06:44:00 Test Item Value Reference Range Interpretation [...] syste payal embolism. 3.0 - 4.5 PTT [id number] 06:44:00 Test Item Value Reference Range Interpretation Comments PTT ACTIVATED (test code = APTT) 33.7 SECONDS 25.1-36.5 N BASIC METABOLIC [id number] 06:36:00 Test Item Value Reference Range Interpretation [...] LDL (test MG/DL 0-99 code = LDL) [id number] 06:36:00 Test Item Value Reference Range Interpretation Comments MAGNESIUM (test code = MAG) 1.9 MG/DL 1.6-2.3 N BASIC METABOLIC [id number] 06:35:00 Test Item Value Reference Range Interpretation [...] LDL (test MG/DL 0-99 code = LDL) [id number] 06:35:00 Test Item Value Reference Range Interpretation Comments MAGNESIUM (test code = MAG) 1.9 MG/DL 1.6-2.3 N BASIC METABOLIC [id number] 06:34:00 Test Item Value Reference Range Interpretation [...] LDL (test code = LDL) MG/DL 0-99 [id number] 06:34:00 Test Item Value Reference Range Interpretation Comments MAGNESIUM (test code = MAG) MG/DL 1.6-2.3 BASIC METABOLIC [id number] 06:32:00 Test Item Value Reference Range Interpretation [...] LDL (test code = LDL) MG/DL 0-99 [id number] 06:32:00 Test Item Value Reference Range Interpretation Comments MAGNESIUM (test code = MAG) MG/DL 1.6-2.3 CBC W/AUTO [id number] 06:20:00 Test Item Value Reference Range Interpretation [...] K/mm3 0.0-0.1 N NRBC#) Coronavirus 2018 nCoV [id number] 18:32:00 Test Item Value Reference Range Interpretation [...]
[2022-01-27] MEDS ORDERED: NA CHLORIDE 0.9% 500 ML ONE ×2 (17:55→22:39)
[2022-01-27 18:14] LABS: Absolute Lymphocytes (CBC) 0.3 K/uL (0.7-4.9); Hematocrit 25.2 % (39.6-49.0); Lymphocytes % 3.4 % (15.3-44.8); MCV 90.2 fL (80-100); MPV 8.2 fL (7.6-11.3); RBC Red Blood Cell Count 2.79 M/uL (4.33-5.43)
[2022-01-27 18:27] LABS: Protime INR 1.48
[2022-01-27 18:33] LABS: Albumin 2.2 g/dL (3.4-5.0); Bilirubin Total 0.5 mg/dL (0.2-1.0); Potassium 3.4 mmol/L (3.5-5.1); Protein, Total 5.4 g/dL (6.4-8.2)
[2022-01-27 18:36] LABS: Troponin High Sensitivity 8186.6 pg/mL (<58.9)
[2022-01-27 18:47] LABS: Urine Blood 2+ (Negative); Urine Glucose Negative (Negative); Urine Protein 2+ (Negative); Urine Specific Gravity 1.015 (1.005-1.030); Urine pH 5.5 (5.0-7.0)
--- NOTE | 2022-01-27 18:53 | RAD REPORT ---
EXAM DESCRIPTION: RAD - Chest Single View - 01/27/2022 6:10 pm CLINICAL HISTORY: COUGH COMPARISON: Portable 10/05/2021 TECHNIQUE: AP portable chest image was obtained 01/27/2022 6:10 pm . FINDINGS: Chronic interstitial pattern matches comparison. Minimal edema or infiltrate could be mask ed by the chronic pattern. Heart and vasculature are normal. No measurable pleural effusion and no pn eumothorax. No acute bony abnormality seen. No acute aortic findings suspected. IMPRESSION: No acute cardiopulmonary process. Baseline chronic pattern could potentially mask minimal edema or infiltrate.
[2022-01-27 19:15] LABS: Urine Bacteria >50 /HPF (NONE SEEN); Urine RBC <5 /HPF (NONE SEEN)
[2022-01-27] MEDS ORDERED: NA CHLORIDE 0.9% 50 ML ONE (19:30)
[2022-01-27] MEDS ORDERED: CEFTRIAXONE 1000 MG/VIAL ONE (19:30)
--- NOTE | 2022-01-27 19:56 | ER ---
Nurse's Notes [facility] Name: Jp Sun Age: 81 yrs Sex: Male : 1940 Arrival Date: 01/27/2022 Time: 17:04 Bed 5 Private MD: Erickson Coleman Diagnosis: Subsequent non-ST elevation (NSTEMI) myocardial infarction;UTI/ Urinary tract infection, site not specified;Weakness;Anemia in other chronic diseases classified elsewhere Presentation: 01/27 17:05 Chief complaint: Spouse and/or significant other states: He has been diagnosed with jb4 myasthenias gravis, he is weak all over, he is shaking but has no fever. Coronavirus screen: At this time, the client does not indicate any symptoms associated with coronavirus-19. Ebola Screen: No symptoms or risks identified at this time. Initial Sepsis Screen: Does the patient meet any 2 criteria? No. Patient's initial sepsis screen is negative. Does the patient have a suspected source of infection? No. Patient's initial sepsis screen is negative. Risk Assessment: Do you want to hurt yourself or someone else? Patient reports no desire to harm self or others. Onset of symptoms was January 27, 2022. Transition of care: patient was not received from another setting of care. 17:05 Method Of Arrival: Wheelchair jb4 17:05 Acuity: FRANCISCO 3 jb4 17:32 Acuity: FRANCISCO 2 aa5 Historical: - Allergies: 17:08 No Known Allergies; jb4 - Home Meds: 19:11 bupropion HCl 75 mg Oral tab daily [Active]; sertraline 100 mg oral tab 2 tabs once aa5 daily [Active]; pyridostigmine bromide 60 mg oral tab BID [Active]; gabapentin 400 mg oral cap 1 cap BID [Active]; amlodipine 10 mg tab 1 tab once daily [Active]; diphenoxylate-atropine 2.5-0.025 mg Oral tab 2 tabs 4 times per day [Active]; furosemide 20 mg oral tab once daily [Active]; prednisone 20 mg Oral tab 4 tabs once daily [Active]; 19:11 Tylenol #3 Oral every 6 hours [Active]; spironolactone 50 mg Oral tab once daily aa5 [Active]; furosemide 40 mg Oral tab once daily [Active]; losartan 50 mg oral tab once daily [Active]; Plavix 75 mg Oral tab 1 tab once daily [Active]; aspirin 81 mg Oral tab daily [Active]; azathioprine 50 mg oral tab 2 tabs once daily [Active]; tolterodine 2 mg oral cp24 BID [Active]; tramadol 50 mg Oral tab every 6 hours [Active]; carvedilol 25 mg oral tab every 12 hours [Active]; Complete Multivitamin-Multimineral oral once daily [Active]; pantoprazole 40 mg oral TbEC once daily [Active]; - PMHx: 17:08 Difficulty swallowing; Hypertension; TIA; jb4 - PSHx: 17:08 feeding tube; prostate surgery; jb4 - Immunization history:: Adult Immunizations up to date. - Social history:: Smoking status: Patient denies any tobacco usage or history of. Screenin:00 Abuse screen: Denies threats or abuse. Nutritional screening: No deficits noted. aa5 Tuberculosis screening: No symptoms or risk factors identified. Fall Risk Fall in past 12 months (25 points). Secondary diagnosis (15 points) TIA, IV access (20 points). Ambulatory Aid- None/Bed Rest/Nurse Assist (0 pts). Gait- Normal/Bed Rest/Wheelchair (0 pts) Mental Status- Overestimates/Forgets Limitations (15 pts.). Total Burnham Fall Scale indicates High Risk Score (45 or more points). Fall prevention measures have been instituted. Side Rails Up X 2 Placed Close to Nursing Station. Assessment: 17:35 General: Appears comfortable, Behavior is calm, cooperative. Pain: Denies pain. 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 Speech is normal, Facial symmetry appears normal, Reports generalized weakness . Cardiovascular: Denies chest pain, Heart tones S1 S2 present Edema is absent. Rhythm is regular. Respiratory: Airway is patent Respiratory effort is even, unlabored, Respiratory pattern is regular, symmetrical, tachypnea Breath sounds are diminished bilaterally. Denies cough, shortness of breath. GI: Abdomen is round non-distended, PEG tube clamped. Site clean. with open wound noted above PEG tube's site, wound pinkish in color, pt's states "he just had surgery for an infection close to his PEG tube recently". Bowel sounds present X 4 quads. Abd is soft and non tender X 4 quads. : Brief noted. EENT: No signs and/or symptoms were reported regarding the EENT system. Derm: Skin is pink, warm \\T\\ dry. Multiple bruising that are dark purple and green in color noted to bilateral arms, right side of chest, right hip, right side of forehead, and renny legs. Pt's states "he falls all the time because he likes to work and move; his last fall was yesterday". Stage 1 pressure ulcer noted to sacral area, is blanchable. Musculoskeletal: Range of motion: intact in all extremities. 18:30 Reassessment: Pt resting in bed with eyes closed, pt easy to awaken to verbal and aa5 tactile stimuli. . Respiratory: Airway is patent Respiratory effort is even, unlabored, Respiratory pattern is regular, symmetrical. Derm: Skin is pink, warm \\T\\ dry. 18:38 Reassessment: provider notified of troponin 8186.6. ap3 Vital Signs: 17:05 BP 94 / 62; Pulse 88; Resp 26 S; Temp 96.8(TE); Pulse Ox 96% ; Weight 83.91 kg (R); jb4 Height 5 ft. 11 in. (180.34 cm) (R); Pain 0/10; 17:33 BP 99 / 67; Pulse 83; Resp 28 S; Temp 98.0(O); Pulse Ox 95% on R/A; aa5 17:45 BP 98 / 68; Pulse 82; Resp 25 S; Pulse Ox 94% on R/A; aa5 18:20 Pulse 77; Pulse Ox 95% on R/A; ap3 18:20 BP 103 / 68; Pulse 79; Resp 30 S; Pulse Ox 96% on R/A; aa5 18:30 BP 95 / 65; Pulse 85; Resp 24 S; Temp 98.0(O); Pulse Ox 93% on R/A; aa5 19:00 BP 113 / 73; Pulse 77; Resp 24; Pulse Ox 95% ; ll3 20:00 BP 119 / 78; Pulse 77; Resp 25; Pulse Ox 95% ; ll3 21:00 BP 133 / 100; Pulse 134; Resp 33; Pulse Ox 95% ; ll3 21:45 BP 149 / 44; Pulse 121; Resp 40; Pulse Ox 100% ; ll3 22:00 BP 120 / 67; Pulse 64; Resp 25; Pulse Ox 93% on R/A; sm5 17:05 Body Mass Index 25.80 (83.91 kg, 180.34 cm) jb4 ED Course: 17:04 Patient arrived in ED. as 17:05 Israel Gutierrez PA is PHCP. cp 17:05 Tushar Larson MD is Attending Physician. cp 17:08 Triage completed. jb4 17:08 Arm band placed on left wrist. jb4 17:09 Erickson Coleman DO is Private Physician. as 17:35 Patient has correct armband on for positive identification. Bed in low position. Call aa5 light in reach. Side rails up X2. Adult w/ patient. Client placed on continuous cardiac and pulse oximetry monitoring. NIBP monitoring applied. 17:39 Dorota Mg RN is Primary Nurse. aa5 17:55 Initial lab(s) drawn, by me, sent to lab. Inserted saline lock: 20 gauge in left aa5 antecubital area, using aseptic technique. Blood collected. 18:10 Chest Single View XRAY In Process Unspecified. EDMS 18:15 Inserted saline lock: 20 gauge in right forearm, using aseptic technique. aa5 18:15 Second set of blood cultures drawn by me. aa5 18:30 Straight cath inserted, using sterile technique, 16 Fr. Specimen obtained. Returned aa5 cloudy urine. Patient tolerated well. 19:00 Report given to DASH Arrieta and DASH Glover. aa5 19:18 Primary Nurse role handed off by Dorota Mg RN eb 19:19 Meenakshi Goldsmith RN is Primary Nurse. 5 19:33 Die Stamper paged at 19:33. mw2 19:55 Alexis Acosta MD is Hospitalizing Provider. cp Administered Medications: 18:06 Drug: NS 0.9% 500 ml Route: IV; Rate: bolus; Site: left antecubital; aa5 18:35 Follow up: IV Status: Completed infusion; IV Intake: 500ml aa5 19:28 Drug: Rocephin - (cefTRIAXone) 1 grams Route: IVPB; Infused Over: 30 mins; Site: right 5 antecubital; 21:09 Drug: Heparin ([place] Drip) 12 units/kg/hr - (HEParin 96933 units, D5W 500 ml) vc1 {Co-Signature: sm5 (Meenakshi Goldsmith RN).} Route: IV; Rate: calculated rate; Site: right forearm; 22:35 Drug: NS 0.9% 500 ml Route: IV; Rate: bolus; Site: right wrist; ll3 Intake: 18:35 IV: 500ml; Total: 500ml. aa5 Outcome: 19:56 Decision to Hospitalize by Provider. cp 23:29 Patient left the ED. vc1 Signatures: Dispatcher [employer] EDMS Rebecca Falcon Audri, RN RN aa5 Israel Gutierrez PA PA cp Kolby Mcclure, RN RN jb4 Pam Edge RN RN ap3 Tati Olsen 2 Jayshree Maher Lynsea, RN RN 3 Meenakshi Goldsmith RN RN sm5 Tita Mahajan RN RN vc1 Meenakshi Goldsmith RN sm5 Corrections: (The following items were deleted from the chart) 19:21 19:11 Home Meds: Acetaminophen-Codeine Oral every 6 hours; aa5 aa5 19:40 17:35 Derm: Skin is pink, warm \\T\\ dry. aa5 aa5
--- NOTE | 2022-01-27 19:56 | EDPHYS ---
Physician Documentation [facility] Name: Jp Sun Age: 81 yrs Sex: Male : 1940 Arrival Date: 01/27/2022 Time: 17:04 Bed 5 Private MD: Erickson Coleman ED Physician Tushar Larson HPI: 01/27 17:45 This 81 yrs old Male presents to ER via Wheelchair with complaints of Weakness. cp 17:45 The patient presents to the emergency department with weakness of the entire body, cp generalized weakness. 17:45 Onset: The symptoms/episode began/occurred gradually. cp 17:45 Associated signs and symptoms: Pertinent positives: weakness, Pertinent negatives: cp altered mental status, dizziness, fever, headache, syncope. Severity of symptoms: in the emergency department the symptoms are unchanged despite home interventions. Patient's baseline: Neuro: alert and fully oriented, Motor: no deficits, Ambulation: walks without assistance, Speech: normal. Historical: - Allergies: 17:08 No Known Allergies; jb4 - Home Meds: 19:11 bupropion HCl 75 mg Oral tab daily [Active]; sertraline 100 mg oral tab 2 tabs once aa5 daily [Active]; pyridostigmine bromide 60 mg oral tab BID [Active]; gabapentin 400 mg oral cap 1 cap BID [Active]; amlodipine 10 mg tab 1 tab once daily [Active]; diphenoxylate-atropine 2.5-0.025 mg Oral tab 2 tabs 4 times per day [Active]; furosemide 20 mg oral tab once daily [Active]; prednisone 20 mg Oral tab 4 tabs once daily [Active]; 19:11 Tylenol #3 Oral every 6 hours [Active]; spironolactone 50 mg Oral tab once daily aa5 [Active]; furosemide 40 mg Oral tab once daily [Active]; losartan 50 mg oral tab once daily [Active]; Plavix 75 mg Oral tab 1 tab once daily [Active]; aspirin 81 mg Oral tab daily [Active]; azathioprine 50 mg oral tab 2 tabs once daily [Active]; tolterodine 2 mg oral cp24 BID [Active]; tramadol 50 mg Oral tab every 6 hours [Active]; carvedilol 25 mg oral tab every 12 hours [Active]; Complete Multivitamin-Multimineral oral once daily [Active]; pantoprazole 40 mg oral TbEC once daily [Active]; - PMHx: 17:08 Difficulty swallowing; Hypertension; TIA; jb4 - PSHx: 17:08 feeding tube; prostate surgery; jb4 - Immunization history:: Adult Immunizations up to date. - Social history:: Smoking status: Patient denies any tobacco usage or history of. ROS: 17:50 Constitutional: Positive for poor PO intake, Negative for fever. cp 17:50 Cardiovascular: Negative for chest pain. cp 17:50 Respiratory: Positive for cough. 17:50 Abdomen/GI: Negative for abdominal pain, vomiting, diarrhea, constipation, black/tarry cp stool, rectal bleeding. 17:50 Eyes: Negative for injury, pain, redness, and discharge. cp 17:50 ENT: Negative for drainage from ear(s), ear pain, sore throat, difficulty swallowing, difficulty handling secretions. 17:50 : Negative for urinary symptoms. 17:50 Neuro: Positive for weakness, Negative for altered mental status, headache, syncope. 17:50 All other systems are negative. Exam: 17:55 Constitutional: The patient appears in no acute distress, alert, awake, cp non-diaphoretic, non-toxic, well developed, well nourished. 17:55 Head/Face: Normocephalic, atraumatic. cp 17:55 Eyes: Periorbital structures: appear normal, Pupils: equal, round, and reactive to light and accomodation, Extraocular movements: intact throughout, Conjunctiva: normal, no exudate, no injection, Sclera: no appreciated abnormality, Lids and lashes: appear normal, bilaterally. 17:55 ENT: External ear(s): are unremarkable, Nose: is normal, Mouth: Lips: dry, Oral mucosa: dry, Posterior pharynx: Airway: no evidence of obstruction, patent. 17:55 Neck: ROM/movement: is normal, is supple, without pain, no range of motions limitations, no meningismus. 17:55 Chest/axilla: Inspection: normal, Palpation: is normal, no crepitus, no tenderness. 17:55 Cardiovascular: Rate: normal, Rhythm: regular, Edema: is not appreciated, JVD: is not appreciated. 17:55 Respiratory: the patient does not display signs of respiratory distress, Respirations: normal, no use of accessory muscles, no retractions, labored breathing, is not present, Breath sounds: are clear throughout, no decreased breath sounds, no stridor, no wheezing. 17:55 Abdomen/GI: Inspection: abdomen appears normal, Bowel sounds: active, all quadrants, Palpation: abdomen is soft and non-tender, in all quadrants. 17:55 Back: pain, is absent, ROM is normal. 17:55 Skin: cellulitis, is not appreciated, no rash present. 17:55 Neuro: Orientation: to person, place \\T\\ time. Mentation: is normal, Motor: moves all fours, general weakness with no focal deficits, Sensation: is normal, Gait: is steady. 17:57 ECG was reviewed by the Attending Physician. cp 19:45 : Rectal exam: Guaiac testing: results were negative for occult blood. cp Vital Signs: 17:05 BP 94 / 62; Pulse 88; Resp 26 S; Temp 96.8(TE); Pulse Ox 96% ; Weight 83.91 kg (R); jb4 Height 5 ft. 11 in. (180.34 cm) (R); Pain 0/10; 17:33 BP 99 / 67; Pulse 83; Resp 28 S; Temp 98.0(O); Pulse Ox 95% on R/A; aa5 17:45 BP 98 / 68; Pulse 82; Resp 25 S; Pulse Ox 94% on R/A; aa5 18:20 Pulse 77; Pulse Ox 95% on R/A; ap3 18:20 BP 103 / 68; Pulse 79; Resp 30 S; Pulse Ox 96% on R/A; aa5 18:30 BP 95 / 65; Pulse 85; Resp 24 S; Temp 98.0(O); Pulse Ox 93% on R/A; aa5 19:00 BP 113 / 73; Pulse 77; Resp 24; Pulse Ox 95% ; ll3 20:00 BP 119 / 78; Pulse 77; Resp 25; Pulse Ox 95% ; ll3 21:00 BP 133 / 100; Pulse 134; Resp 33; Pulse Ox 95% ; ll3 21:45 BP 149 / 44; Pulse 121; Resp 40; Pulse Ox 100% ; ll3 22:00 BP 120 / 67; Pulse 64; Resp 25; Pulse Ox 93% on R/A; sm5 17:05 Body Mass Index 25.80 (83.91 kg, 180.34 cm) jb4 MDM: 17:33 Patient medically screened. 19:10 Data reviewed: vital signs, nurses notes, lab test result(s), EKG, radiologic studies, cp plain films. 19:10 Test interpretation: by ED physician or midlevel provider: ECG, plain radiologic studies. 19:51 Physician consultation: Willi Quinn MD was called at 19:52, was contacted at 19:53, regarding admission, to the telemetry unit. patient's condition, will perform cardiac cath 01-29-2022. 20:05 Physician consultation: Felipe Moreno was contacted at 20:00, regarding admission, to the telemetry unit. patient's condition, and will see patient in ED, shortly. 01/27 17:41 Order name: Blood Culture Adult (2) 01/27 17:41 Order name: CBC with Diff; Complete Time: 18:44 01/27 18:44 Interpretation: Normal except: RBC 2.79; HGB 8.3; HCT 25.2; PLT 145; RDW 16.7; NADJA% cp 93.8; LYM% 3.4; MN% 2.6; NEUT A 9.5; LYMA 0.3. 01/27 17:41 Order name: CMP; Complete Time: 18:44 01/27 18:47 Interpretation: Normal except: K 3.4; CL 109; GLUC 142; BUN 51; CRE 1.69; GFR 41; AST cp 58; TP 5.4; ALB 2.2; A/G 0.7. 01/27 17:41 Order name: Lactate; Complete Time: 18:44 11 18:48 Interpretation: Abnormal: LAC 1.7. 01/27 17:41 Order name: Protime (+inr); Complete Time: 18:44 01/27 17:41 Order name: Ptt, Activated; Complete Time: 18:44 01/27 17:41 Order name: Urine Culture 01/27 17:41 Order name: Urine Microscopic Only; Complete Time: 19:50 01/27 17:41 Order name: COVID-19 SARS RT PCR (Document "Date of Onset" if Symptomatic); Complete cp Time: 19:50 01/27 17:41 Order name: Procalcitonin; Complete Time: 18:46 01/27 18:47 Interpretation: Abnormal: Procalcitonin 6.43. 01/27 17:41 Order name: Troponin High Sensitivity; Complete Time: 18:44 01/27 18:47 Interpretation: Abnormal: Troponin HS 8186.6. 01/27 18:21 Order name: Glucose, Ancillary Testing; Complete Time: 18:44 EDNV 01/27 18:48 Order name: Urine Dipstick-Ancillary; Complete Time: 18:49 EDNV 01/27 18:49 Interpretation: Normal except: UBLD 2+; UPROT 2+; UESTR 2+. 01/27 19:02 Order name: Type And Screen 01/27 17:41 Order name: Chest Single View XRAY; Complete Time: 19:00 01/27 17:41 Order name: Accucheck; Complete Time: 18:06 01/27 17:41 Order name: Cardiac monitoring; Complete Time: 18:06 01/27 17:41 Order name: EKG - Nurse/Tech; Complete Time: 18:06 01/27 17:41 Order name: IV Saline Lock - Large Bore; Complete Time: 18:06 01/27 20:45 Order name: Ferritin [facility] 01/27 20:45 Order name: Ferritin [facility] 01/27 20:45 Order name: Iron [facility] 01/27 20:45 Order name: Iron [facility] 01/27 20:45 Order name: Transferrin Sat/Iron Binding [facility] 01/27 20:45 Order name: Transferrin Sat/Iron Binding [facility] 01/27 22:43 Order name: Antibody Identification [facility] 01/27 17:41 Order name: Labs collected and sent; Complete Time: 18:06 01/27 17:41 Order name: O2 Per Protocol; Complete Time: 18:06 01/27 17:41 Order name: O2 Sat Monitoring; Complete Time: 18:06 01/27 17:41 Order name: Urine Dipstick-Ancillary (obtain specimen); Complete Time: 18:40 01/27 18:37 Order name: Cath; Complete Time: 18:37 aa5 EC:57 Rate is 93 beats/min. Rhythm is regular. ID interval is normal. QRS interval is cp prolonged at 140 msec. QT interval is normal. T waves are Inverted in lead aVR. Interpreted by me. Reviewed by me. Administered Medications: 18:06 Drug: NS 0.9% 500 ml Route: IV; Rate: bolus; Site: left antecubital; aa5 18:35 Follow up: IV Status: Completed infusion; IV Intake: 500ml aa5 19:28 Drug: Rocephin - (cefTRIAXone) 1 grams Route: IVPB; Infused Over: 30 mins; Site: right sm5 antecubital; 21:09 Drug: Heparin ([place] Drip) 12 units/kg/hr - (HEParin 23125 units, D5W 500 ml) vc1 {Co-Signature: sm5 (Meenakshi Goldsmith RN).} Route: IV; Rate: calculated rate; Site: right forearm; 22:35 Drug: NS 0.9% 500 ml Route: IV; Rate: bolus; Site: right wrist; ll3 Disposition: 01/28 08:13 Co-signature as Attending Physician, Tushar Larson MD I agree with the assessment and kdr plan of care. Disposition Summary: 01/27/22 19:56 Hospitalization Ordered Hospitalization Status: Inpatient Admission cp Provider: Alexis Acosta cp Condition: Stable cp Problem: new cp Symptoms: have improved cp Bed/Room Type: Standard cp Location: Intensive Care Unit(01/27/22 22:58) cg Room Assignment: 2-(01/27/22 22:58) cg Diagnosis - Subsequent non-ST elevation (NSTEMI) myocardial infarction cp - UTI/ Urinary tract infection, site not specified cp - Weakness cp - Anemia in other chronic diseases classified elsewhere cp Forms: - Medication Reconciliation Form cp - SBAR form cp Signatures: Dispatcher [employer] EDMS Tushar Larson MD MD [facility] Dorota Mg RN RN aa5 eFlipe Moreno, MAIL SERVICE COORDINATOR-C MAIL SERVICE COORDINATOR-Cla1 Israel Gutierrez PA PA cp Garcia, Cindy, RN RN cg Kolby Mcclure RN RN jb4 Adalberto Buckley RN RN ll3 Meenakshi Goldsmith RN RN sm5 Tita Mahajan RN RN vc1 Meenakshi Goldsmith RN sm5 Corrections: (The following items were deleted from the chart) 01/27 19:21 19:11 Home Meds: Acetaminophen-Codeine Oral every 6 hours; aa5 aa5 21:19 19:56 cp cg 22:49 21:19 [facility] cg cg :58 19:56 Telemetry/MedSurg (Inpatient) [facility] 22:49 cg
--- NOTE | 2022-01-27 20:52 | P.HP ---
Certification for Inpatient Patient admitted to: Inpatient With expected LOS: >2 Midnights Patient will require the following post-hospital care: None Practitioner: I am a practitioner with admitting privileges, knowledge of patient current condition, hospital course, and medical plan of care. Services: Services provided to patient in accordance with Admission requirements found in Title 42 Section 412.3 of the Code of Federal Regulations Patient History Date of Service: 01/27/22 Reason for admission: NSTEMI, UTI History of Present Illness: 81-year-old male with history of myasthenia gravis, hypertension, CAD presents the emergency department for weakness/shakiness his states that on he was evaluated by his neurologist it was determined that he was taking twice as much pyridostigmine as he was supposed to be taking, his dose was decreased to 60 mg p.o. twice a day, his azathioprine was increased to 150 mg daily, his prednisone current dose is 80 mg daily his neurologist has adjusted to every other day 80 mg every other day 60 mg daily. He was evaluated in the emergency department for generalized weakness and shakiness his labs were significant for normocytic anemia acute kidney injury significantly elevated high-sensitivity troponin, UTI he had chest x-ray which was negative for acute findings his EKG was without ST elevations he was guaiac negative. ED provider discussed case with cardiology who recommends initiation of heparin drip plans for cardiac catheterization on Saturday. Patient also given Rocephin for UTI. Will admit for further evaluation and management of NSTEMI, UTI. Allergies No Known Allergies Allergy (Verified 11/16/21 15:32) Home Medications: Multivitamin [Daily Multivitamin] 1 each PO DAILY 02/03/13 Ascorbic Acid 1 tab PO DAILY 10/05/21 Ferrous Gluconate 324 mg PO DAILY 10/05/21 Pantoprazole [Protonix Tab*] 1 tab PO DAILY 10/05/21 Sertraline HCl 1.5 tab PO DAILY 10/05/21 Bupropion HCl [Wellbutrin] 75 mg OSTOMY BID #60 tablet 10/07/21 Gabapentin 7.5 ml PO BID #450 ml 10/07/21 Jevity 1.5 Song Liquid 237 ml FT 5XD bot 10/07/21 Mirabegron [Myrbetriq] 3 ml PO DAILY #120 [email or web address] 10/07/21 Pyridostigmine Baker 15 mg PO QID 11/16/21 Pyridostigmine Baker [Regonol] 5 ml PO QID 11/16/21 predniSONE [Prednisone*] 80 mg PO DAILY 11/16/21 Doxycycline Monohydrate 20 ml FT BID 12 Days #480 ml 12/13/21 Sulfameth/Trimethoprim [Bactrim Pedi Suspension*] 20 ml FT BID 12 Days #480 ml 12/13/21 - Past Medical/Surgical History Diabetic: No -: hep cresolved -: high cholesterol -: renal stones -: Arrythmias -: Hypertension -: TIA -: Myasthenia Gravis -: foot surgery9 bone spurs -: Cardiac Stents -: PEg tube Psychosocial/ Personal History: Patient lives at home with adult children - Family History Mother -: Hypertension, Diabetes - Social History Smoking Status: Never smoker Alcohol use: No CD- Drugs: No Caffeine use: Yes Place of Residence: Home Review of Systems 10-point ROS is otherwise unremarkable General: Chills, Weakness, Malaise Physical Examination - Physical Exam General: Alert, In no apparent distress, Oriented x3 HEENT: Atraumatic, PERRLA, Other (Mucous membranes dry), EOMI, Sclerae nonicteric Neck: Supple, 2+ carotid pulse no bruit, No LAD, Without JVD or thyroid abnormality Respiratory: Normal air movement, Diminished Cardiovascular: No edema, Regular rate/rhythm, Normal S1 S2 Capillary refill: <2 Seconds Gastrointestinal: Normal bowel sounds, No tenderness, No masses, No rebound, No guarding, Other (PEG tube in place, wound just superior to PEG tube site appears to be healing well with good granulation tissue no signs of infection) Musculoskeletal: No tenderness Integumentary: No rashes Neurological: Normal speech, Normal tone, Sensation intact, Normal affect - Studies Laboratory Data (last 24 hrs) 01/27/22 18:00: PT 16.4 H, INR 1.48, APTT 31.2 01/27/22 18:00: Sodium 141, Potassium 3.4 L, BUN 51 H, Creatinine 1.69 H, Glucose 142 H, Total Bilirubin 0.5, AST 58 H, ALT 29, Alkaline Phosphatase 72 01/27/22 18:00: WBC 10.1, Hgb 8.3 L, Hct 25.2 L, Plt Count 145 L Assessment and Plan - Plan Assessment: NSTEMI-history CAD UTI Weaknesshistory of myasthenia gravis Acute kidney injury Hypertension Plan: NSTEMI-history CAD: Continue heparin drip, trend troponins, echocardiogram ordered, cardiology consult in place anticipation of heart catheterization on Saturday. Appreciate further input from cardiology UTI: Urine culture obtained, continue Rocephin. Weaknesshistory of myasthenia gravis: Patient recently had his medications adjusted by his neurologist on this last , he was taking twice as much pyridostigmine as he was supposed to be his dose was brought back down to 60 mg twice daily from 120 mg twice daily, he is on azathioprine his dose was increased from 100 mg to 150 mg daily he is also on prednisone he was taking 80 mg a day, neurologist recommended he start alternating days between 80 and 60 mg until his next follow-up. Will consult neurologist for additional input regarding his weakness, he is maintaining his airway, breathing well, handling his secretions at this time. Acute kidney injury: Continue gentle IV fluids overnight recheck renal labs. Hypertension: Continue home medications. DVT PPX: Heparin drip Code status: Full Discharge Plan: Home Plan to discharge in: 72 Hours - Advance Directives Does patient have a Living Will: No Does patient have a Durable POA for Healthcare: Yes - Code Status/Comfort Care Code Status Assessed: Yes (Full code) Critical Care: No Time Spent Managing Pts Care (In Minutes): 70
[2022-01-27] MEDS ORDERED: HEPARIN 5000 UNIT/ML 1 ML VIAL ONE (21:10)
[2022-01-27] MEDS ORDERED: HEPARIN/D5W 25,000 UNIT/500 ML BAG IV ONE (21:10)
[2022-01-28] MEDS ORDERED: HEPARIN/D5W 25,000 UNIT/500 ML BAG IV SCH (00:50)
[2022-01-28] MEDS ORDERED: ONDANSETRON 4 MG/2 ML VIAL IV PRN (00:50)
[2022-01-28] MEDS: NA CHLORIDE 0.9% 1,000 ML IV SCH ×2 (01:03→14:28)
[2022-01-28] MEDS: PYRIDOSTIGMINE 60 MG TABLET PO SCH ×3 (01:24→20:48)
[2022-01-28] MEDS ORDERED: KCL 20 MEQ/100 mL IVPB 20 MEQ/100 ML BAG IV SCH (02:39)
[2022-01-28 05:22] LABS: Absolute Lymphocytes (CBC) 0.4 K/uL (0.7-4.9); Hematocrit 22.3 % (39.6-49.0); Lymphocytes % 3.3 % (15.3-44.8); MCV 90.2 fL (80-100); RBC Red Blood Cell Count 2.48 M/uL (4.33-5.43)
[2022-01-28 05:50] LABS: ALT/SGPT 28 U/L (12-78); AST/SGOT 54 U/L (15-37); Albumin 1.8 g/dL (3.4-5.0); Alkaline Phosphatase 70 U/L (45-117); BUN Blood Urea Nitrogen 49 mg/dL (7-18); Bicarbonate 24 mmol/L (21-32); Bilirubin Total 0.5 mg/dL (0.2-1.0); Ferritin 801.4 ng/mL (26-388); Glomerular Filtration Rate 42 ml/min (=/>90); Glucose Level 107 mg/dL (74-106); Potassium 3.7 mmol/L (3.5-5.1); Protein, Total 4.7 g/dL (6.4-8.2); Sodium Level 144 mmol/L (136-145); Transferrin 109 mg/dL (200-360)
[2022-01-28 05:57] LABS: Urine Appearance Clear (Clear); Urine Bilirubin Negative (Negative); Urine Blood 3+ (Negative); Urine Color Yellow (Yellow); Urine Glucose Negative (Negative); Urine Protein 2+ (Negative); Urine Specific Gravity 1.015 (1.005-1.030); Urine Urobilinogen 0.2 mg/dL (0.2-1.0)
[2022-01-28 05:57] LABS: Iron < 10.0 ug/dL (65-175)
[2022-01-28 06:01] LABS: Urine Microscopic Reflex ORDER UMIC
[2022-01-28 06:04] LABS: Urine Bacteria >50 /HPF (NONE SEEN); Urine RBC 20-50 /HPF (NONE SEEN); Urine Urothelial Cells <5 /HPF (NONE SEEN)
[2022-01-28 07:46] LABS: Blood Morphology Comment NOT SEEN (NOT SEEN); Dohle Bodies PRESENT; Platelet Estimate ADEQ; Toxic Granulation PRESENT
[2022-01-28] MEDS: AZATHIOPRINE 50 MG TABLET PO SCH (10:11)
[2022-01-28] MEDS: predniSONE 20 MG TAB PO SCH (10:11)
[2022-01-28] MEDS: CLOPIDOGREL 75 MG TABLET PO SCH (10:11)
[2022-01-28] MEDS ORDERED: NA CHLORIDE 0.9% 250 ML IV SCH (15:00)
--- NOTE | 2022-01-28 15:37 | P.PN ---
Subjective Date of Service: 01/28/22 Chief Complaint: NSTEMI, UTI Subjective: No new changes Physical Examination - Vital Signs Temperature: 97.9 F Blood Pressure: 111/88 Pulse: 101 Respirations: 24 Pulse Ox (%): 97 - Physical Exam General: Alert HEENT: Atraumatic, Normocephalic Neck: Supple Respiratory: Normal air movement Gastrointestinal: Soft and benign - Studies Laboratory Data (last 24 hrs) 01/27/22 18:00: PT 16.4 H, INR 1.48, APTT 31.2 01/27/22 18:00: Sodium 141, Potassium 3.4 L, BUN 51 H, Creatinine 1.69 H, Glucos e 142 H, Total Bilirubin 0.5, AST 58 H, ALT 29, Alkaline Phosphatase 72 01/27/22 18:00: WBC 10.1, Hgb 8.3 L, Hct 25.2 L, Plt Count 145 L Assessment And Plan - Plan Assessment: NSTEMI-history CAD UTI Weaknesshistory of myasthenia gravis Acute kidney injury Hypertension Bacteremia Plan: NSTEMI-history CAD: Troponin trend is improving. Continue heparin drip. cardiology planning for [facility] in am. we will continue telemetry monitoring. UTI: Urinalysis is concerning. Urine culture obtained, we will continue Rocephin. Weaknesshistory of myasthenia gravis: Pt is on prednisone, azathioprine and Pyridostigmine. we will continue present dose. Neurology consulted for management recs. Acute kidney injury: Continue gentle IV fluids overnight recheck renal labs. Hypertension: Continue home medications. Bacteremia: Bld culture growing gram neg rods. urine deemed source of infection. DVT PPX: Heparin drip Code status: Full Discharge Plan: Home Plan to discharge in: 72 Hours
--- NOTE | 2022-01-28 18:20 | CON ---
Date of Consultation: 01/28/2022 Reason For Consultation: Non-STEMI. History Of Present Illness: Mr. Sun is a 81-year-old male with history of myasthenia gravis, TIA, and hypertension, who came in with hypotension, weakness, atypical chest pain. Troponin was 6000. P rocalcitonin was elevated. Hemoglobin was 7.4. His initial pressure was 90/60, went up to 105/[address] hydration[address] EKG showed nonspecific changes. His creatinine is 1.66. He denied PND, orthopnea, p edal edema, palpitation, or syncope. Denied any fever or chills. Allergies: NONE. Review of Systems: Negative. Social History: Negative. Family History: Negative. Medications: Present medications include Imuran, heparin, Plavix, prednisone, and Mestinon. Physical Examination: Vital Signs: Stable, afebrile. Blood pressure is 105/74. HEENT: Negative. Neck: Supple with no bruit. Chest: Clear. Cardiac: Revealed a regular rhythm and rate. No murmurs, gallops, or rubs. Abdomen: Benign. Extremities: Revealed no clubbing, cyanosis, or edema. Diagnostic Data: As stated earlier. Impression And Plan: 1.The patient with nonspecific symptoms including hypotension, weakness, atypical chest pain, tropon in of 6000. He is on heparin. He is on Plavix. His blood pressure will not allow us to put him on beta-blockers or any other medications. The patient needs a left heart catheterization to define his coronary anatomy. He understand the risk and the benefits of the procedure and he agrees to proceed . 2.Myasthenia gravis, on Imuran and Mestinon. 3.History of transient ischemic attack, on Plavix. 4.Hypertension, well controlled. We will see what the catheterization shows before making further d ecisions. NB/MODL Voice ID: [id number] Report ID: [id number]
[2022-01-28] MEDS ORDERED: CEFTRIAXONE 1,000 MG in NA CHLORIDE 0.9% 50 ML IVPB SCH (21:00)
[2022-01-29] MEDS: NA CHLORIDE 0.9% 1,000 ML IV SCH ×2 (03:30→11:19)
[2022-01-29 05:14] LABS: Absolute Lymphocytes (CBC) 0.4 K/uL (0.7-4.9); Hematocrit 27.6 % (39.6-49.0); Lymphocytes % 4.3 % (15.3-44.8); MCV 88.4 fL (80-100); MPV 9.1 fL (7.6-11.3); RBC Red Blood Cell Count 3.12 M/uL (4.33-5.43)
[2022-01-29] MEDS ORDERED: METOPROLOL TARTRATE 5 MG/5 ML INJ IV STA (05:24)
[2022-01-29] MEDS: CLOPIDOGREL 75 MG TABLET PO SCH (05:32)
[2022-01-29 05:59] LABS: Albumin 1.8 g/dL (3.4-5.0); Bilirubin Total 0.3 mg/dL (0.2-1.0); Potassium 3.4 mmol/L (3.5-5.1); Protein, Total 4.9 g/dL (6.4-8.2)
[2022-01-29] MEDS ORDERED: NA CHLORIDE 0.9% 500 ML ONE (08:25)
[2022-01-29] MEDS ORDERED: FENTANYL CITR 100 MCG/2 ML ONE (08:36)
[2022-01-29] MEDS ORDERED: MIDAZOLAM HCL 2 MG/2 ML INJ ONE (08:36)
[2022-01-29] MEDS ORDERED: ATROPINE SULF 1 MG/10 ML SYR IV ONE (08:37)
[2022-01-29] MEDS ORDERED: NA CHLORIDE 0.9% 0 ML ONE (08:37)
[2022-01-29] MEDS ORDERED: NITROGLYCERIN 100 MCG/ML SYR (for cath lab use only) IV ONE (08:37)
[2022-01-29] MEDS ORDERED: LIDOCAINE 1% 20 ML MDV ONE (08:43)
[2022-01-29] MEDS ORDERED: HEPA 1000U/500MLS 1,000 UNIT/500 ML BAG IV ONE (08:43)
[2022-01-29] MEDS ORDERED: ACETYLCYST 20% 4 ML VIAL IH ONE (09:21)
--- NOTE | 2022-01-29 09:41 | P.PN ---
Date of Service: 01/29/22 Subjective Scheduled for left heart cath today Physical Examination - Vital Signs Reviewed - Physical Exam General: Alert HEENT: Atraumatic, Normocephalic Neck: Supple Respiratory: Normal air movement Gastrointestinal: Soft and benign Assessment And Plan Assessment: NSTEMI-history CAD UTI Weaknesshistory of myasthenia gravis Acute kidney injury Hypertension Bacteremia Plan: NSTEMI-history CAD: Troponin trend is improving. cardiology planning for [facility] we will continue telemetry monitoring. UTI: Urinalysis is concerning. Urine culture obtained, we will continue Rocephin. Weaknesshistory of myasthenia gravis: Pt is on prednisone, azathioprine and Pyridostigmine. we will continue present dose. Neurology consulted for management recs. Acute kidney injury: Continue gentle IV fluids overnight recheck renal labs. Hypertension: Continue home medications. Bacteremia: Bld culture/urine cx growing E.coli; rocephin DVT PPX: Heparin drip Code status: Full Discharge Plan: Home Plan to discharge in: 72 Hours
--- NOTE | 2022-01-29 10:11 | OP ---
Date of Procedure: 01/29/2022 Surgeon: Willi Quinn MD Tax Technician: Ms. Kenyetta Amor. Procedures: Left heart catheterization, selective common femoral artery angiogram. Indication: The patient is 81, history of myasthenia gravis, came into the hospital with weakness, h ypotension, troponin of 6000. Procedure In Detail: [facility]ought [facility] today as an inpatient. He underwent left heart cathete rization, selective coronary arteriogram, common femoral artery angiogram. He was prepped and draped in routine sterile fashion. He was given Versed and fentanyl for sedation. A 6-Burmese sheath was i ntroduced in the right common femoral artery successfully using the Seldinger technique. Angiography there showed tortuous iliacs, otherwise was patent. Angio-Seal was used to close the case. Jerry catheter left and right were used to do the diagnostic catheterization. I ran out of room as far as the length of the JL4, but I was able to cannulate the left main successfully. He had a normal left main. He had a 70% ostial LAD, had an 80% mid LAD and between both of those stenoses, there was sev ere calcification. The circumflex was normal with small and nondominant. The RCA was large, ectatic with a patent distal RCA stent. The common femoral artery angiogram was normal with an Angio-Seal p ost procedure. I attempted to put a guide catheter in the left main to possibly intervene with LAD, but I could not reach it secondary to tortuosity. We will plan a right wrist approach [facility] as he might need an atherectomy. Complication was none. Blood loss was 5 mL. Postoperative Diagnosis: Severe coronary artery disease. Plan: For a PCI, possible atherectomy in [place]. Anesthesia: Total conscious sedation was 60 minutes. NB/MODL Voice ID: [id number] Report ID: [id number]
[2022-01-29] MEDS: predniSONE 20 MG TAB PO SCH (11:18)
[2022-01-29] MEDS: CEFTRIAXONE 1,000 MG in NA CHLORIDE 0.9% 50 ML IVPB SCH ×2 (11:18→20:49)
[2022-01-29] MEDS: PYRIDOSTIGMINE 60 MG TABLET PO SCH ×2 (11:18→20:48)
[2022-01-29] MEDS: AZATHIOPRINE 50 MG TABLET PO SCH (11:19)
--- NOTE | 2022-01-29 13:36 | EKG ---
Test Date: 2022-01-28 Test Time: 01:26:04 Primary School Teacher: BIENVENIDO MEASUREMENT RESULTS: Intervals: Rate: 122 MI: QRSD: 134 QT: 378 QTc: 538 [place]: P: MI: QRS: -58 T: -24 INTERPRETIVE STATEMENTS: Atrial fibrillation with rapid ventricular response with premature ventricular or aberrantly conducted complexes Right bundle branch block Left anterior fascicular block Bifascicular block Abnormal ECG Compared to ECG 01/27/2022 17:51:10 Ventricular premature complex(es) now present Sinus rhythm no longer present Sinus arrhythmia no longer present Bifascicular block still present Electronically Signed On 01-29-22 13:34:41 CDT by Vinny Waggoner
--- NOTE | 2022-01-29 13:38 | EKG ---
Test Date: 2022-01-27 Test Time: 17:51:10 Cream Maker: ALP MEASUREMENT RESULTS: Intervals: Rate: 93 NH: 152 QRSD: 140 QT: 430 QTc: 534 [place]: P: 78 NH: 152 QRS: -45 T: 23 INTERPRETIVE STATEMENTS: Sinus rhythm with marked sinus arrhythmia Right bundle branch block Left anterior fascicular block Bifascicular block Abnormal ECG Compared to ECG 10/05/2021 01:27:55 No significant changes Electronically Signed On 01-29-22 13:35:13 CDT by Vinny Waggoner
[2022-01-29] MEDS ORDERED: ENSURE HIGH PROTEIN 237 ML CAN PO SCH (16:30)
--- NOTE | 2022-01-29 18:34 | RAD REPORT ---
EXAM DESCRIPTION: MRI - Brain Wo Cont - 01/29/2022 6:23 pm CLINICAL HISTORY: R/O CVA Headache, drowsiness, CVA symptomology COMPARISON: Brain Wo Cont dated 09/05/2021 TECHNIQUE: Multi-sequence, multiplanar MR imaging of the brain was performed without contrast. FINDINGS: No intracranial hemorrhage, hydrocephalus or extra-axial fluid collections.Mild brain atro phy with mild to moderate periventricular and deep white matter chronic microvascular ischemic change s. No edema or shift of midline structures. No findings to suspect brain mass. DWI is negative for ac nanci CVA. Midline structures are normally formed. Mastoid air cells and paranasal sinuses are clear. IMPRESSION: Negative for acute CVA or other acute intracranial process.
[2022-01-29] MEDS: VITAL AF 1,000 ML BOT FT SCH ×2 (18:45→21:00)
[2022-01-29] MEDS: ENSURE HIGH PROTEIN 237 ML CAN PO SCH (20:45)
[2022-01-29] MEDS: JUVEN PACKET PO SCH (20:45)
--- NOTE | 2022-01-29 23:59 | CON ---
Reason For Consultation: Consultation called because of the possibility of a stroke. History Of Present Illness: Mr. Sun is a 81-year-old patient with history of myasthenia gravis, co ronary artery disease status post 3 stents, and hypertension who had developed some excessive shaking and diffuse weakness along with possible left-sided weakness and who had also apparently doubled his dosage of pyridostigmine, which should have been in alternating 80 with 60 every other day to at jesse st 80 mg daily. His neurologist, Dr. Flores Gibson had decreased the dosage, but apparently the andres ent had not yet done so. At [facility] he was evaluated and found to have a possible non-ST segment myocardial infarction. He had a cardiac cath done earlier in the day. The study, however, identified cardiac vessel stenosis, but was too complicated to be done locally and so the patient was with a waiting list for transfer to a hospital in [place] where the study could be performed. In the meantime, at my evaluation, the patient said he did have some persistent left-sided weakness, ar m and leg. He reports his weakness was about 25% of normal, however, use of that arm appeared to be much more than that. He was able to hold out the arm strongly against the bed as he has been sitting on the commode at the beside and had at least 4/5 strength in the upper and lower extremity on the l eft. A brain MRI was done. It was negative for an acute ischemic or hemorrhagic change. There was [id number] periventricular deep white matter chronic small vessel ischemic disease. His electr ocardiogram showed sinus rhythm, marked sinus arrhythmia, right bundle-branch block, and left anterio r fascicular block. Chest x-ray showed no acute cardiopulmonary processes. Baseline chronic pattern was identified. Past Medical History: Hep C that has been treated, dyslipidemia, renal stones, cardiac arrhythmia, h ypertension, prior coronary artery disease with at least 4 cardiac stents, and myasthenia gravis. Past Surgical History: Bone spurs with 9 surgeries removing bone spurs, 4 cardiac stents, and PEG tu be placement. Allergies: NO KNOWN DRUG ALLERGIES. Medications: Multivitamin daily, ascorbic acid daily, ferrous sulfate 325 mg daily, Protonix daily, sertraline 1.5 tabs daily, Wellbutrin 75 mg twice daily, gabapentin twice daily, Jevity 1.5 Pierre 3 ligia es daily, Myrbetriq daily, pyridostigmine which should be 60 mg alternating with 80 mg every other da y, prednisone mg daily, doxycycline twice daily, and Bactrim twice daily. Family History: Hypertension and diabetes in mother. Social History: No alcohol, tobacco, or IV drug use. Review of Systems: He has diffuse weakness with some fatigable weakness, some more left-sided weakness and no difficulty with swallowing or speaking. No significant shortness of breath when at rest. Otherwise, some brui sing in the arms and legs and no other positives on systems review. Physical Examination: Vital Signs: Blood pressure 128/88, pulse from 98 to 107, respiratory rate 16 to 23, temperature 97. 9, oxygen saturation 92%. Weight 186 pounds, height 5 feet 11 inches, BMI 26. General: Mr. Sun is resting comfortably, sitting on the commode side bed. He is in no significant distress. HEENT: He appears normocephalic, atraumatic. Sclerae anicteric. Oropharynx is moist and pink. Neck: Supple. Chest: Clear. Heart: Regular. Abdomen: Soft. Extremities: No significant edema or cyanosis, but bruising in the upper and lower extremities. Neurologic: Alert and oriented to situation, place, and person. Cranial nerves showed no focal defi cits on 2 through 12. No fatigable weakness in terms of ptosis noted. His strength is at least 4/5 on the left and 5/5 on the right. There is some mild decrease after several attempts on holding up t he left arm. Sensation intact in upper and lower extremities. Coordination intact in upper and lowe r extremities. Laboratory Studies: Complete blood count with differential with normal white blood cell of 9.4, hemo globin 9.5, platelets 123. His PTT is 37.8. Sodium 147, potassium 3.4, BUN 52, creatinine 1.50, pierre cium 8.2. Procalcitonin was elevated at 6.43. Normal lactate of 1.7. Liver function studies with s lightly elevated AST of 54, normal ALT of 28, and alkaline phosphatase of 70. Total bilirubin normal at 0.8. Urinalysis shows 20-50 red blood cells, greater than 50 white blood cells, greater than 50 bacteria, 3+ blood, 2+ esterase, 2+ total protein. His urinalysis shows E coli with sensitivity as n ear pansensitive except penicillin and cefazolin along with Unasyn. Assessment: Mr. Sun is a 81-year-old patient with myasthenia gravis who apparently took an excess amount of pyridostigmine and appears to have a non-ST segment myocardial infarction and has stenosis in cardiac vessels that was complicated and the patient will be sent to [place] for potential roxane oplasty and stents. At this point, no evidence of stroke on MRI. His exam actually does not ___ in terms of focal weakness, the patient does say he feels weak on one side more, but does not paulino ear more on exam. He does have what looks like a urinary tract infection and is managed by primary t eam. Plan: 1.As indicated, cardiac intervention is appropriate. 2.Continue the pyridostigmine 60 mg twice daily otherwise PEG tube nutrition and medications given b y PEG tube given his dysphagia related to his myasthenia gravis. 3.After his discharge, he is following up with Dr. Flores Gibson. AMARI/MARGAUX Voice ID: [id number] Report ID: [id number]
[2022-01-30] MEDS: NA CHLORIDE 0.9% 1,000 ML IV SCH ×2 (04:36→18:42)
[2022-01-30] MEDS: HEPARIN/D5W 25,000 UNIT/500 ML BAG IV SCH (05:34)
[2022-01-30 05:47] LABS: Absolute Lymphocytes (CBC) 0.5 K/uL (0.7-4.9); Hematocrit 28.3 % (39.6-49.0); Lymphocytes % 5.7 % (15.3-44.8); MCV 89.8 fL (80-100); MPV 9.2 fL (7.6-11.3); RBC Red Blood Cell Count 3.16 M/uL (4.33-5.43)
[2022-01-30 06:26] LABS: Albumin 1.8 g/dL (3.4-5.0); Bilirubin Total 0.2 mg/dL (0.2-1.0); Potassium 3.7 mmol/L (3.5-5.1); Protein, Total 4.8 g/dL (6.4-8.2)
--- NOTE | 2022-01-30 07:11 | ECHO ---
HEIGHT: 5 ft 11 in WEIGHT: 187 lb 3.2 oz DATE OF STUDY: 01/29/[address]: Felipe Moreno NP 2-DIMENSIONAL: YES M.MODE: YES DOPPLER: YES COLOR FLOW: YES TDS: PORTABLE: YES DEFINITY: BUBBLE STUDY: DIAGNOSIS: NON ST ELEVATION MYOCARDIAL INFARCTION, MYASTHENIA GRAVIS CARDIAC HISTORY: CATHERIZATION: YES SURGERY: NO PROSTHETIC VALVE: NO PACEMAKER: NO MEASUREMENTS (cm) DIASTOLIC (NORMALS) SYSTOLIC (NORMALS) IVSd 1.2 (0.6-1.2) LA Diam 3.6 (1.9-4.0) LVEF 40-45% LVIDd 3.4 (3.5-5.7) LVIDs 2.5 (2.0-3.5) %FS 26% LVPWd 1.4 (0.6-1.2) Ao Diam 2.6 (2.0-3.7) 2 DIMENSIONAL ASSESSMENT: RIGHT ATRIUM: NORMAL LEFT ATRIUM: NORMAL RIGHT VENTRICLE: NORMAL LEFT VENTRICLE: MILD LEFT VENTRICULAR HYPERTROPHY TRICUSPID VALVE: MILD TRICUSPID REGURGITATION MITRAL VALVE: MODERATE MITRAL REGURGITATION PULMONIC VALVE: NORMAL AORTIC VALVE: NORMAL PERICARDIAL EFFUSION: NONE AORTIC ROOT: NORMAL LEFT VENTRICULAR WALL MOTION: ANTERIOR/ NICK SEPTAL HYPOKINESIS DOPPLER/COLOR FLOW: SEE BELOW COMMENTS: MILDLY DEPRESSED LEFT VENTRICULAR EJECTION FRACTION 40-45%. ANTERIOR/ NICK SEPTAL HYPOKINESIS. MILD TRICUSPID REGURGITATION. MODERATE TO SEVERE MITRAL REGURGITATION. TECHNOLOGIST: MICHELLE HOWE
[2022-01-30] MEDS: JUVEN PACKET PO SCH ×2 (09:00→19:37)
[2022-01-30] MEDS: ENSURE HIGH PROTEIN 237 ML CAN PO SCH ×2 (09:00→19:38)
[2022-01-30] MEDS: VITAL AF 1,000 ML BOT FT SCH ×4 (09:00→20:12)
[2022-01-30] MEDS: PYRIDOSTIGMINE 60 MG TABLET PO SCH ×2 (10:10→20:29)
[2022-01-30] MEDS: CLOPIDOGREL 75 MG TABLET PO SCH (10:10)
[2022-01-30] MEDS: predniSONE 20 MG TAB PO SCH (10:10)
[2022-01-30] MEDS: AZATHIOPRINE 50 MG TABLET PO SCH (10:10)
[2022-01-30] MEDS: CEFTRIAXONE 1,000 MG in NA CHLORIDE 0.9% 50 ML IVPB SCH ×2 (10:19→20:12)
[2022-01-31] MEDS: HEPARIN/D5W 25,000 UNIT/500 ML BAG IV SCH (01:30)
[2022-01-31 04:20] VITALS: BMI 27.5
[2022-01-31 04:47] LABS: Absolute Lymphocytes (CBC) 0.5 K/uL (0.7-4.9); MCV 90.8 fL (80-100); MPV 9.2 fL (7.6-11.3); RBC Red Blood Cell Count 3.09 M/uL (4.33-5.43)
[2022-01-31 05:03] LABS: Albumin 1.8 g/dL (3.4-5.0); Bilirubin Total 0.2 mg/dL (0.2-1.0); Potassium 3.8 mmol/L (3.5-5.1); Protein, Total 4.5 g/dL (6.4-8.2)
--- NOTE | 2022-01-31 07:22 | P.PN ---
Date of Service: 01/30/22 Subjective Clinically doing well no new complaints. Swallowing has been evaluated. We will monitor him on a diet. Physical Examination - Vital Signs Reviewed - Physical Exam General: Alert HEENT: Atraumatic, Normocephalic Neck: Supple Respiratory: Normal air movement Gastrointestinal: Soft and benign Assessment And Plan Assessment: NSTEMI-history CAD UTI Weaknesshistory of myasthenia gravis Acute kidney injury Hypertension Bacteremia Plan: NSTEMI-history CAD: cardiology planning for reattempt at stenting on Saturday; possible transfer we will continue telemetry monitoring. UTI: Continue antibiotics Weaknesshistory of myasthenia gravis: Pt is on prednisone, azathioprine and Pyridostigmine. we will continue present dose. Neurology consulted for management recs. Acute kidney injury: Continue gentle IV fluids overnight recheck renal labs. Hypertension: Continue home medications. Bacteremia: Bld culture/urine cx growing E.coli; rocephin DVT PPX: Heparin drip Code status: Full Discharge Plan: Home Plan to discharge in: 72 Hours
--- NOTE | 2022-01-31 07:23 | P.PN ---
Date of Service: 01/31/22 Subjective Physical Examination - Vital Signs Reviewed - Physical Exam General: Alert HEENT: Atraumatic, Normocephalic Neck: Supple Respiratory: Normal air movement Gastrointestinal: Soft and benign Assessment And Plan Assessment: NSTEMI-history CAD UTI Weaknesshistory of myasthenia gravis Acute kidney injury Hypertension Bacteremia Plan: NSTEMI-history CAD: Heart cath today per Dr. Waggoner we will continue telemetry monitoring. UTI: Continue antibiotics Weaknesshistory of myasthenia gravis: Continue current medication; neurology consulted earlier Acute kidney injury: Continue gentle IV fluids overnight recheck renal labs. Hypertension: Continue home medications. Bacteremia: Continue antibiotic therapy with Rocephin DVT PPX: Heparin drip Code status: Full Discharge Plan: Home Plan to discharge in: 72 Hours
[2022-01-31] MEDS: predniSONE 20 MG TAB PO SCH (08:00)
[2022-01-31] MEDS ORDERED: D5 0.45 NS 1,000 ML IV SCH (08:00)
[2022-01-31 08:31] VITALS: O2SAT 95
[2022-01-31] MEDS: CEFTRIAXONE 1,000 MG in NA CHLORIDE 0.9% 50 ML IVPB SCH (08:38)
[2022-01-31] MEDS: VITAL AF 1,000 ML BOT FT SCH (09:00)
[2022-01-31] MEDS: PYRIDOSTIGMINE 60 MG TABLET PO SCH (09:00)
[2022-01-31] MEDS: AZATHIOPRINE 50 MG TABLET PO SCH (09:00)
[2022-01-31] MEDS: CLOPIDOGREL 75 MG TABLET PO SCH (09:00)
[2022-01-31] MEDS: ENSURE HIGH PROTEIN 237 ML CAN PO SCH (09:00)
[2022-01-31] MEDS: JUVEN PACKET PO SCH (09:00)
[2022-01-31 11:09] VITALS: BP 117/92; TEMP 97.2
--- NOTE | 2022-02-01 20:20 | PN ---
Date of Progress Note: 01/30/2022 Mr. Sun underwent a heart catheterization on 01/29/2022 showing fairly normal RCA and very complica gilberto stenosis on the LAD with multiple calcification requiring atherectomy, also circumflex lesion. W e are awaiting for him to be transferred to [facility] for an atherectomy by Dr. Waggoner. Meanwhile, his right groin and insertion site are intact. He has no complaint. His vital signs stab le. He is afebrile. His chest is clear. His pulses are present distally bilaterally. Again, his m ain issues is coronary artery disease, status post non-STEMI, complicated LAD stenosis. We will awai t his transfer for atherectomy of the LAD and maybe staged the circumflex later. DULCE MARIA/MODL Voice ID: [id number] Report ID: [id number]
--- NOTE | 2022-02-20 23:47 | P.DS ---
Discharge Date: 01/31/22 Disposition: ROUTINE DISCHARGE Reason for Admission: NSTEMI, UTI Brief History of Present Illness: 81-year-old male with history of myasthenia gravis, hypertension, CAD presents the emergency department for weakness/shakiness his states that on he was evaluated by his neurologist it was determined that he was taking twice as much pyridostigmine as he was supposed to be taking, his dose was decreased to 60 mg p.o. twice a day, his azathioprine was increased to 150 mg daily, his prednisone current dose is 80 mg daily his neurologist has adjusted to every other day 80 mg every other day 60 mg daily. He was evaluated in the emergency department for generalized weakness and shakiness his labs were significant for normocytic anemia acute kidney injury significantly elevated high-sensitivity troponin, UTI he had chest x-ray which was negative for acute findings his EKG was without ST elevations he was guaiac negative. ED provider discussed case with cardiology who recommends initiation of heparin drip plans for cardiac catheterization on Saturday. Patient also given Rocephin for UTI. Will admit for further evaluation and management of NSTEMI, UTI. Hospital Course: Patient has done well during hospital stay. Patient clinically doing much better. Will continue with antibiotic therapy. Continue with cardiac meds. At the time, patient is in for discharge home. Vital Signs/Physical Exam: Temp Pulse Resp BP Pulse Ox 97.2 F 107 H 22 H 117/92 H 97 01/31/22 08:00 01/31/22 08:00 01/31/22 08:00 01/31/22 08:00 01/31/22 08:00 General: Alert, In no apparent distress, Oriented x3 Laboratory Data at Discharge: WBC 5.7 K/uL (4.3-10.9) D 01/31/22 04:32 Hgb 9.2 g/dL (13.6-17.9) L 01/31/22 04:32 Hct 28.0 % (39.6-49.0) L 01/31/22 04:32 Plt Count 142 K/uL (152-406) L 01/31/22 04:32 PT 16.4 SECONDS (9.5-12.5) H 01/27/22 18:00 INR 1.48 01/27/22 18:00 APTT 38.2 SECONDS (24.3-36.9) H 01/31/22 08:37 Sodium 146 mmol/L (136-145) H 01/31/22 04:32 Potassium 3.8 mmol/L (3.5-5.1) 01/31/22 04:32 BUN 64 mg/dL (7-18) H 01/31/22 04:32 Creatinine 1.17 mg/dL (0.55-1.3) 01/31/22 04:32 Glucose 126 mg/dL (74-106) H 01/31/22 04:32 Total Bilirubin 0.2 mg/dL (0.2-1.0) 01/31/22 04:32 AST 17 U/L (15-37) 01/31/22 04:32 ALT 27 U/L (12-78) 01/31/22 04:32 Alkaline Phosphatase 62 U/L (45-117) 01/31/22 04:32 Home Medications: Sertraline HCl 100 tab PO DAILY 10/05/21 Pyridostigmine [place] 60 mg PO BID 11/16/21 predniSONE [Prednisone*] 60 mg PO SEECOM 11/16/21 Amlodipine [place] 5 mg PO DAILY 01/28/22 Aspirin [Aspirin EC 81 MG] 81 mg PO DAILY 01/28/22 Bupropion HCl [Wellbutrin] 300 mg PO DAILY 01/28/22 Clopidogrel Bisulfate [Plavix*] 75 mg PO DAILY 01/28/22 Ferrous Sulfate [Iron] 325 mg PO DAILY 01/28/22 Furosemide 40 mg PO DAILY 01/28/22 Gabapentin [Neurontin] 400 mg PO BID 01/28/22 Losartan Potassium [Cozaar] 50 mg PO DAILY 01/28/22 Nutritional Supplement [Nutren 1.0] 250 ml OSTOMY QID 01/28/22 Pravastatin [Pravachol*] 40 mg PO DAILY 01/28/22 Spironolactone 50 mg PO DAILY 01/28/22 Tolterodine Tartrate 2 mg PO BID 01/28/22 azaTHIOprine [Azathioprine] 3 tab PO DAILY 01/28/22 carvediloL [Carvedilol] 25 mg PO BID 01/28/22 metroNIDAZOLE [Flagyl] 375 mg PO DAILY 01/28/22 traMADol HCL [Ultram*] 50 mg PO QID 01/28/22 Diet: AHA Followup: Erickson Coleman MD [Primary Care Provider] - Time spent managing pt's care (in minutes): 35
== END 2022-01-31 11:15 | disposition home or self-care (01) | DRG 871 ==
LOC: ER 17:03 → ERHOLD 21:32 → 4TH 22:19 → 3RD-ICU 23:12
PROVIDERS: ADMIT Internal Medicine Nephrology; ATTEND Internal Medicine Nephrology
PROC: B2011ZZ Plain Radiography of Multiple Coronary Arteries using Low Osmolar Contrast (ICD-10-PCS; principal; 2022-01-29)
DX: A41.51 Sepsis due to Escherichia coli [E. coli] (principal); I21.4 Non-ST elevation (NSTEMI) myocardial infarction; N39.0 Urinary tract infection, site not specified; N17.9 Acute kidney failure, unspecified; R65.20 Severe sepsis without septic shock; I25.10 Atherosclerotic heart disease of native coronary artery without angina pectoris; G70.00 Myasthenia gravis without (acute) exacerbation; I10 Essential (primary) hypertension; B96.20 Unspecified Escherichia coli [E. coli] as the cause of diseases classified elsewhere; I77.1 Stricture of artery; Z95.5 Presence of coronary angioplasty implant and graft; Z86.19 Personal history of other infectious and parasitic diseases; E78.5 Hyperlipidemia, unspecified; Z86.73 Personal history of transient ischemic attack (TIA), and cerebral infarction without residual deficits; Z20.822 Contact with and (suspected) exposure to COVID-19
CPT/HCPCS: 36415; 36430; 51702; 70551; 71045; 80053; 81003; 81015; 82728; 82947; 83540; 83605; 84132; 84145; 84466; 84484; 85025; 85610; 85730; 86850; 86870; 86900; 86901; 86902; 86922; 87040; 87077; 87086; 87088; 87186; 87205; 92610; 93005; 93306; 93454; 99251; 99284; A6010; C1760; C1877; C1893; G0269; J0583; J1644; J2250; J2405; J3010; J3480; J7030; J7040; J7050; J7500; J7512; J7799; P9016; Q9967; U0003

== ENCOUNTER 2022-03-31 22:25 | Observation (INO) | payer OTHER ==
--- OUTSIDE RECORDS SUMMARY | 2022-03-31 22:35 | XMS REPORT | Continuity of Care Document ---
:1940 Author Organization [facility] t Address [address] [place] [place] [address] Care Team Providers Name Role Phone Erickson Coleman Primary Care Physician Yaa Mcclain Attending Clinician Unavailable Erickson Marin Attending Clinician Unavailable ML HAYDEN Attending Clinician Unavailable MADELYN LEMON Attending Clinician Unavailable Hany Yanes Attending Clinician Unavailable Doctor Unassigned, [place] Attending Clinician Unavailable Sayda Pak RN Attending Clinician Unavailable MIKEY MONGE Attending Clinician Unavailable MIKEY MONGE Attending Clinician Unavailable Kraig Eden MD Attending Clinician Moe Darling MD Attending Clinician John Castaneda DO Attending Clinician EMELINA Attending Clinician Unavailable CORAZON KESSLER Attending Clinician Unavailable Ml Hayden MD Attending Clinician Lab, Adc Fam Pob I Attending Clinician Unavailable Vinny Waggoner Admitting Clinician Unavailable ML HAYDEN Admitting Clinician Unavailable MADELYN LEMON Admitting Clinician Unavailable Physician, No Primary or Family Admitting Clinician UnavailMOE Tilley Admitting Clinician Unavailable ERICKSON_R Admitting Clinician Unavailable Payers Payer Name Policy Type Policy Number Effective Date Expiration Date S carey MEDICARE PART A \\T\\ [id number] 2007 B 00:00:00 [employer] [id number] 2013 OUT OF NETWORK 00:00:00 MEDICARE A B [id number] 2007 00:00:00 [employer] INDEMNITY NON [id number] 2013 CONTR 00:00:00 [place]IC[place] B-[place]: [id number] 2007 [employer] 00:00:00 [employer] (INDEMNITY) [id number] 2000 00:00:00 Problems Condition Condition Condition Status Onset Resolution Last Treating Co mments Source Name Details Category Date Date Treatment Clinician Date Acute Acute Disease Active Univers respirator respirator 6-25 it y of y failure y failure 00:00: Ale s with with 00 Medical hypoxia hypoxia Branch Ischemic Ischemic Disease Active Unive rs stroke stroke 8-18 ity of 00:00: [address] Allergies, Adverse Reactions, Alerts Allergy Allergy Status Severity Reaction(s) Onset Inactive Treating Comm ents Source Name Type Date Date Clinician No Known DA Active U [facility] 6[facility]15 Clear s 00:00: [address] No Known DA Active U 0 [facility] [address] 00:00: [address] No Known DA Active U 0 [facility] Allergie 6-05 [place] 00:00: [address] NO KNOWN Drug Active Univers ALLERGIE Class ity of S [facility] NO KNOWN Allergy Active [facility] Social History Social Habit Start Date Stop Date Quantity Comments Source Exposure to 2022-02-02 2022-02-12 Not sure [facility] SARS-CoV-2 00:00:00 20:35:00 [facility] (event) Branch Tobacco Comment 2022-02-10 2022-02-10 Per Universit y of 00:00:00 00:00:00 [facility] Tobacco use and 2022-02-10 2022-02-10 Smokeless tobacco Un iversity of exposure 00:00:00 00:00:00 non-user [facility] Alcohol intake 2022-02-10 2022-02-10 Lifetime University of 00:00:00 00:00:00 non-drinker [facility] (finding) [place] Sex Assigned At [birth year] Universit y of 00:00:00 00:00:00 [facility] Smoking Status Start Date Stop Date Source Never smoked tobacco [facility] Medications Ordered Filled Start Stop Current Ordering Indication Dosage Frequency Signature Comments Components Source Medication Medication Date Date Medication? Clinician (SIG) Name Name spironolact Yes 12.5mg Take 12.5 Univers one 12.5 mg 7-15 mg by ity of 01:54: mouth [place] 03 daily. Medical Branch amiodarone Yes 200mg Take 200 Un teri 200 mg 7-15 mg by ity of tablet 01:54: mouth 2 [place] 03 (two) Medical times Branch daily. apixaban Yes 2.5mg Take 2.5 Univ ers (ELIQUIS) 7-15 mg by ity of 2.5 mg 01:54: mouth 2 [place] tablet 03 (two) Medical times Branch daily. pyridostigm Yes 60mg Take 60 mg Univers ine 60 mg 7-15 by mouth 2 ity of tablet 01:54: (two) [place] 03 times Medical daily. Branch atorvastati Yes 10mg Take 10 mg Univers n (LIPITOR) 7-15 by mouth ity of 10 mg 01:54: at [place] tablet 03 bedtime. Medical Branch SERTraline Yes 100mg Take 100 Un teri (ZOLOFT) 7-15 mg by ity of 100 mg 01:54: mouth [place] tablet 03 daily. Medical Branch azaTHIOprin Yes 150mg Take 150 U nivers e 50 mg 7-15 mg by ity of tablet 01:54: mouth [place] 03 daily. Medical Branch ferrous Yes 325mg Take 325 Unive rs sulfate 325 7-15 mg by ity of mg (65 mg 01:54: mouth [place] iron) 03 daily. Medical tablet Branch ferrous Yes 300mg 300 mg, Univer s sulfate 300 7-13 Oral, ity of mg (60 mg 14:00: DAILY, [place] iron)/5 mL 00 First dose Med ical solution (after Branch 300 mg last modificati on) on Sat02/28/22 at 0900, Until Discontinu ed, Routine spironolact Yes 12.5mg Take 12.5 Univers one 12.5 mg 7-13 mg by ity of 13:55: mouth [place] 31 daily. Medical Branch amiodarone Yes 200mg Take 200 Un teri 200 mg 7-13 mg by ity of tablet 13:55: mouth 2 [place] 31 (two) Medical times Branch daily. apixaban Yes 2.5mg Take 2.5 Univ ers (ELIQUIS) 7-13 mg by ity of 2.5 mg 13:55: mouth 2 [place] tablet 31 (two) Medical times Branch daily. pyridostigm Yes 60mg Take 60 mg Univers ine 60 mg 7-13 by mouth 2 ity of tablet 13:55: (two) [place] 31 times Medical daily. Branch atorvastati Yes 10mg Take 10 mg Univers n (LIPITOR) 7-13 by mouth ity of 10 mg 13:55: at [place] tablet 31 bedtime. Medical Branch SERTraline Yes 100mg Take 100 Un teri (ZOLOFT) 7-13 mg by ity of 100 mg 13:55: mouth [place] tablet 31 daily. Medical Branch azaTHIOprin Yes 150mg Take 150 U nivers e 50 mg 7-13 mg by ity of tablet 13:55: mouth [place] 31 daily. Medical Branch ferrous Yes 325mg Take 325 Unive rs sulfate 325 7-13 mg by ity of mg (65 mg 13:55: mouth [place] iron) 31 daily. Medical tablet Branch spironolact Yes 12.5mg Take 12.5 Univers one 12.5 mg 7-13 mg by ity of 13:55: mouth [place] 31 daily. Medical Branch amiodarone Yes 200mg Take 200 Un teri 200 mg 7-13 mg by ity of tablet 13:55: mouth 2 [place] 31 (two) Medical times Branch daily. apixaban Yes 2.5mg Take 2.5 Univ ers (ELIQUIS) 7-13 mg by ity of 2.5 mg 13:55: mouth 2 [place] tablet 31 (two) Medical times Branch daily. pyridostigm Yes 60mg Take 60 mg Univers ine 60 mg 7-13 by mouth 2 ity of tablet 13:55: (two) [place] 31 times Medical daily. Branch atorvastati Yes 10mg Take 10 mg Univers n (LIPITOR) 7-13 by mouth ity of 10 mg 13:55: at [place] tablet 31 bedtime. Medical Branch SERTraline Yes 100mg Take 100 Un teri (ZOLOFT) 7-13 mg by ity of 100 mg 13:55: mouth [place] tablet 31 daily. Medical Branch azaTHIOprin Yes 150mg Take 150 U nivers e 50 mg 7-13 mg by ity of tablet 13:55: mouth [place] 31 daily. Medical Branch ferrous Yes 325mg Take 325 Unive rs sulfate 325 7-13 mg by ity of mg (65 mg 13:55: mouth [place] iron) 31 daily. Medical tablet Branch carvediloL 2021- No 25mg Take 25 mg Univers 25 mg 7-13 07-13 by mouth. ity of tablet 10:47: 00:00 [place] 49 :00 Medical Branch losartan 25 2021- No 25mg Take 25 mg Univers mg tablet 7-13 by mouth ity o f 10:47: 00:00 at [place] 49 :00 bedtime. Medical Branch benzonatate 2021- No 100mg Take 100 Univers 100 mg 7-13 07-13 mg by ity of capsule 10:47: 00:00 mouth [place] 49 :00 every 6 Medical (six) Branch hours as needed for Cough. gabapentin 2021- No 100mg Take 100 U nivers 100 mg 7-13 07-13 mg by ity of capsule 10:47: 00:00 mouth 2 [place] 49 :00 (two) Medical times Branch daily. predniSONE 0 2021- No 60mg Take 60 mg Univers 20 mg 02-2813 by mouth ity of tablet 10:47: 00:00 every 2 [place] 49 :00 (two) Medical days. Branch insulin 2021-2021- No 5U inject 5 Unive rs glargine 02-28- Units ity of 100 unit/mL 10:47: 00:00 under the [place] injection 49 :00 skin at Medical bedtime. Branch fidaxomicin 2-0 Yes 200mg Take 1 Uni vers 200 mg 7-13 tablet ity of tablet 00:00: through [place] 00 enteral Medical tube in Branch the morning and 1 tablet in the evening. carvediloL 2022-0 Yes 25mg Take 1 Unive rs 25 mg 7-13 tablet by ity of tablet 00:00: mouth in [place] 00 the Medical morning Branch and 1 tablet in the evening. Take with meals. furosemide 2-0 Yes 40mg Take 1 Unive rs 40 mg 7-13 tablet by ity of tablet 00:00: mouth in [place] 00 the Medical morning. Branch fidaxomicin 2-0 Yes 200mg Take 1 Uni vers 200 mg 7-13 tablet ity of tablet 00:00: through [place] 00 enteral Medical tube in Branch the morning and 1 tablet in the evening. carvediloL 2022-0 Yes 25mg Take 1 Unive rs 25 mg 7-13 tablet by ity of tablet 00:00: mouth in [place] 00 the Medical morning Branch and 1 tablet in the evening. Take with meals. furosemide 2-0 Yes 40mg Take 1 Unive rs 40 mg 7-13 tablet by ity of tablet 00:00: mouth in [place] 00 the Medical morning. Branch fidaxomicin 2022-0 Yes 200mg Take 1 Uni vers 200 mg 7-13 tablet ity of tablet 00:00: through [place] 00 enteral Medical tube in Branch the morning and 1 tablet in the evening. carvediloL 2022-0 Yes 25mg Take 1 Unive rs 25 mg 7-13 tablet by ity of tablet 00:00: mouth in [place] 00 the Medical morning Branch and 1 tablet in the evening. Take with meals. furosemide 2022-0 Yes 40mg Take 1 Unive rs 40 mg 7-13 tablet by ity of tablet 00:00: mouth in [place] 00 the Medical morning. Branch pantoprazol 2021- No 8mg/h 8 mg/hr U nivers e 02-24 (50 ity of (PROTONIX) 20:30: 20:30 mL/hr), IV [place] 80 mg in 00 :17 Infusion, Medica l NaCl 0.9% CONTINUOUS Bran ch (NS) 500 mL , Starting infusion on 02/24/22 at 1530 pantoprazol 2021- No 40mg 40 mg, Uni vers e 02-24 Slow IV ity of (PROTONIX) 14:45: 19:25 Push, [place] injection 00 :32 Q12H, Medical 40 mg First dose Branch (after last modificati on) on 02/24/22 at 0945, Until Discontinu ed pyridostigm Yes 60mg 60 mg, Univ ers ine 02-24 Oral, BID, ity of (MESTINON) 01:00: First dose [place] tablet 60 00 on Sat Medical mg 02/23/22 at Branch 1999, Until Discontinu ed, Routine acetaminoph Yes 650mg 650 mg, Un teri en 02-23 Oral, ity of (TYLENOL) 21:55: Q6HPRN, [place] tablet 650 48 Starting Medic al mg on Fri Branch 02/23/22 at 1655, Until Discontinu ed, Routine, Pain (scale 1-3) ferrous 2021- No 325mg 325 mg, Unive rs sulfate 300 02-2312 Oral, BID, i ty of mg (60 mg 13:00: 16:32 First dose [place] iron)/5 mL 00 :33 on Fri Medical solution 02/23/22 at Branch 325 mg 0800, Until Discontinu ed, Routine apixaban 2021- No 2.5mg 2.5 mg, Univ ers (ELIQUIS) 02-23 Oral, BID, ity of tablet 2.5 01:00: 14:36 First dose [place] mg 00 :03 (after Medical last Branch reorder) on [facility] 02/22/22 at 2000, Until Discontinu ed, Routine
Indicatio ns: Non-Valvul ar Atrial Fibrillati on pantoprazol 2021- No 40mg 40 mg, Uni vers e 02-23 Oral, BID, ity of (PROTONIX) 01:00: 14:36 First dose [place] 2 mg/mL 00 :03 on [facility] Medical oral 02/22/22 at Branch suspension 2000, 40 mg Until Discontinu ed, Routine KCL 20 2021- No 40meq 40 mEq, Univer s mEq/15 mL 02-22 Enteral, ity o f solution 40 14:15: 16:24 ONCE, 1 [place] mEq 00 :00 dose, On Medical [place] 02/22/22 Branch at 0915, Routine KCL 20 2021- No 20meq 20 mEq, Univer s mEq/15 mL 02-21 Enteral, ity o f solution 20 19:00: 19:00 ONCE, 1 [place] mEq 00 :00 dose, On Medical 02/21/22 Branch at 1400, Routine KCL 20 2021- No 20meq 20 mEq, Univer s mEq/15 mL 02-21 Enteral, ity o f solution 20 16:00: 16:40 Q2H ES, 1 [place] mEq 00 :00 dose, Medical First dose Branch on Sat02/21/22 at 1100, Routine clopidogreL Yes 75mg 75 mg, Univ ers (PLAVIX) 75 02-21 Oral, ity of mg tablet 14:00: DAILY, [place] 75 mg 00 First dose Medical on Sat Branch 02/21/22 at 0900, Until Discontinu ed, Routine fidaxomicin 2021- Yes 200mg 200 mg, U nivers (DIFICID) 02-21 Enteral, ity o f tablet 200 14:00: 12:59 BID, 20 [place] mg 00 :00 doses, Medical First dose Branch on Sat02/21/22 at 0900, Last dose on Sat03/02/22 at 2000, Routine
Reason for Anti-Infec tive: Documented Infection< br>Documen gilberto Infection Site: Abdominal< br>Duratio n of Therapy: 7 days aspirin 2021- No 81mg 81 mg, Univers chewable 02-21 Oral, ity of tablet 81 14:00: 12:33 DAILY, [place] mg 00 :07 First dose Medical on Sat Branch 02/21/22 at 0900, Until Discontinu ed, Routine ferrous 2021- No 325mg 325 mg, Unive rs sulfate 02-21 Oral, BID, ity o f tablet 325 01:00: 12:48 First dose [place] mg 00 :03 on Sat [facility] 02/20/22 at Branch 2000, Until Discontinu ed, Routine D5W IV 2021- No 1000mL at 100 Univer s infusion 02-20 mL/hr, IV ity o f 1,000 mL 21:15: 16:05 Infusion, [place] 00 :35 CONTINUOUS Medical , Starting Branch on Sat02/20/22 at 1615, Until [place] 02/22/22 at 1105, Routine pantoprazol No 40mg 40 mg, Uni vers e 02-20 Slow IV ity of (PROTONIX) 13:00: 17:15 Push, [place] injection 00 :27 Q12H, Medical 40 mg First dose Branch on Sat02/20/22 at 0800, Until Discontinu ed QUEtiapine Yes 25mg 25 mg, Unive rs (SEROQUEL) 02-19 Oral, QHS, ity of tablet 25 02:00: First dose [place] mg 00 (after Medical last Branch modificati on) on [place] 02/18/22 at 2100, Until Discontinu ed, Routine KCL 20 2021- No 40meq 40 mEq, Univer s mEq/15 mL 02-18 Enteral, ity o f solution 40 14:00: 13:30 ONCE, 1 [place] mEq 00 :00 dose, On [facility] 02/18/22 Branch at 0900, Routine piperacilli 2021- No 3.375g 3.375 g, Univers n-tazobacta 02-17 0705 IV ity of m (ZOSYN) 19:00: 15:30 Piggyback, [place] 3.375 g in 00 :00 Q8H ABX, 9 Med ical NaCl 0.9% doses, Branch (NS) 50 mL First dose MINI-BAG (after last reorder) on [facility] 02/17/22 at 1400, Last dose on Sat02/20/22 at 0600, Administer over 4 Hours, 50 mL
Reas on for Anti-Infec tive: Empiric Therapy for Suspected Infection< br>Empiric Therapy Site: Respirator y
Durat ion of therapy: 7 days KCL 20 2021- No 20meq 20 mEq, Univer s mEq/15 mL 02-17 Enteral, ity o f solution 20 13:45: 13:51 ONCE, 1 [place] mEq 00 :00 dose, On Medical 02/17/22 Branch at 0845, Routine D5W IV 2021- No 1000mL at 70 Univers infusion 02-16 0705 mL/hr, IV ity o f 1,000 mL 18:00: 21:07 Infusion, [place] 00 :19 CONTINUOUS Medical , Starting Branch on Sat02/16/22 at 1300, Until Sat02/20/22 at 1607, Routine piperacilli 2021- No 3.375g 3.375 g, Univers n-tazobacta 02-16 IV ity of m (ZOSYN) 17:00: 15:03 Piggyback, [place] 3.375 g in 00 :00 Q8H ABX, 3 Med ical NaCl 0.9% doses, Branch (NS) 50 mL First dose MINI-BAG (after last modificati on) on Sat02/16/22 at 1200, Last dose on Sat02/17/22 at 0400, Administer over 4 Hours, 50 mL
Reas on for Anti-Infec tive: Empiric Therapy for Suspected Infection< br>Empiric Therapy Site: Respirator y
Durat ion of therapy: 7 days hydrALAZINE Yes 25mg 25 mg, Univ ers (APRESOLINE 02-16 Enteral, ity of ) tablet 25 13:10: Q6HPRN, [place] mg 37 Starting Medical on Sat Branch 02/16/22 at 0810, Until Discontinu ed, Routine, SBP>160, DBP>100 QUEtiapine 2021- No 25mg 25 mg, Univ ers (SEROQUEL) 02-1503 Oral, BID, it y of tablet 25 18:30: 15:58 First dose [place] mg 00 :12 on [facility] Medical 02/15/22 at Branch 1330, Until Discontinu ed, Routine KCL No 40meq 40 mEq, IV Unive rs (POTASSIUM 02-15 Piggyback, it y of CHLORIDE) 15:45: 19:48 ONCE, 1 [place] 40 mEq in 00 :00 dose, On Medica l NaCl 0.9% [facility] (NS) 02/15/22 at piggyback 1045, 250 mL levalbutero Yes .63mg 0.63 mg, U nivers l (XOPENEX) 02-14 Inhalation it y of nebulizer 17:00: , Q6H, [place] solution 00 First dose Medic al 0.63 mg (after Branch last modificati on) on Sat02/14/22 at 1200, Until Discontinu ed, Routine
Approved by: [facility] PROVIDER furosemide No 20mg 20 mg, Univ ers (LASIX) 10 02-14 Enteral, ity of mg/mL 15:00: 13:06 BID, First [place] solution 20 00 :42 dose on Medic al mg [facility] 02/14/22 at 1000, Until Discontinu ed, Routine aspirin 2021- No 81mg 81 mg, Univers chewable 02-14 Oral, ity of tablet 81 14:00: 03:08 DAILY, [place] mg 00 :45 First dose Medical on Sat Branch 02/14/22 at 0900, Until Discontinu ed, Routine KCL 20 No 40meq 40 mEq, Univer s mEq/15 mL 02-14 Enteral, ity o f solution 40 13:00: 18:43 Q4H, 2 [place] mEq 00 :00 doses, Medical First dose Branch on Sat02/14/22 at 0800, Last dose on Sat02/14/22 at 1200, Routine KCL No 40meq 40 mEq, Univers (KLOR-CON 02-14 Oral, Q4H, ity of M20) tablet 11:30: 12:44 2 doses, [place] 40 mEq 00 :52 First dose Medical (after Branch last modificati on) on Sat02/14/22 at 0630, Last dose on Sat02/14/22 at 0800, Routine apixaban No 2.5mg 2.5 mg, Univ ers (ELIQUIS) 02-14 0705 Oral, BID, ity of tablet 2.5 01:00: 03:08 First dose [place] mg 00 :45 on Sat Medical 02/13/22 at Branch 2000, Until Discontinu ed, Routine
Indicatio ns: Non-Valvul ar Atrial Fibrillati on acetylcyste No 4mL 800 mg (4 Univers ine 02-13 07-06 mL), ity of (MUCOMYST) 17:00: 16:03 Inhalation [place] 200 mg/mL 00 :18 , Q6H, Medical (20 %) First dose Branch solution on Sat 800 mg 02/13/22 at 1200, Until Discontinu ed, Routine levalbutero No .63mg 0.63 mg, Univers l (XOPENEX) 02-13 Inhalation i ty of nebulizer 17:00: 16:18 , Q6H, [place] solution 00 :22 First dose Medic al 0.63 mg on Sat [place] 02/13/22 at 1200, Until Discontinu ed, Routine
Approved by: [facility] PROVIDER famotidine No 20mg 20 mg, [facility] ers (PEPCID) 40 02-13 0705 Enteral, ity of mg/5 mL (8 13:00: 15:47 Q24H, [place] mg/mL) 00 :02 First dose Medical suspension (after Branch 20 mg last modificati on) on Sat02/13/22 at 0800, Until Discontinu ed, Routine
Indicatio n for use: Mechanical Ventilatio n > 48 hours KCL 20 2021- No 40meq 40 mEq, Univer s mEq/15 mL 02-13 Enteral, ity o f solution 40 13:00: 13:43 ONCE, 1 [place] mEq 00 :00 dose, On Medical [facility] 02/13/22 at 0800, Routine NaCl 0.9% Yes 10mL 10 mL, Univer s (NS) 02-13 Slow IV ity of injection 11:45: Push, PRN, [place] 10 mL 15 Starting Medical on Sat Branch 02/13/22 at 0645, Until Discontinu ed, Routine, line maintenanc e lidocaine Yes 5mL 5 mL, Univers 1% (PF) 02-13 Subcutaneo ity of (XYLOCAINE) 11:45: us, PRN, [place] injection 5 15 Starting Medi pierre mL on Sat [place] 02/13/22 at 0645, Until Discontinu ed, Routine, Local anesthesia atorvastati Yes 10mg 10 mg, Univ ers n (LIPITOR) 02-13 Oral, QHS, it y of tablet 10 02:00: First dose [place] mg 00 on [facility] 02/12/22 at Branch 2100, Until Discontinu ed, Routine amiodarone Yes 200mg 200 mg, Uni vers (PACERONE) 02-13 Oral, BID, ity of tablet 200 01:00: First dose [place] mg 00 on [facility] 02/12/22 at Branch 2000, Until Discontinu ed, Routine carvediloL Yes 25mg 25 mg, Unive rs (COREG) 02-12 Oral, BID ity of tablet 25 22:00: MEALS, [place] mg 00 First dose Medical on Sat [place] 02/12/22 at 1700, Until Discontinu ed, Routine enoxaparin 2021- No 1mg/kg 80 mg Uni vers (LOVENOX) 02-12 (rounded ity o f injection 19:00: 16:56 from 84.5 [place] 80 mg 00 :17 mg = 1 Medical mg/kg Branch ?84.5 kg), Subcutaneo us, Q24H, First dose on Sat02/12/22 at 1400, Until Discontinu ed, Routine furosemide 2021- No 20mg 20 mg, Univ ers (LASIX) 02-11 Slow IV ity of injection 11:00: 14:48 Push, Q8H, [place] 20 mg 00 :59 First dose Medical on [facility] 02/11/22 at 0600, Until Discontinu ed, Routine clopidogreL 2021- No 75mg 75 mg, Uni vers (PLAVIX) 75 02-11 0705 Enteral, ity of mg tablet 02:00: 03:08 DAILY, [place] 75 mg 00 :45 First dose Medical on [facility] Branch 02/10/22 at 2100, Until Discontinu ed, Routine sulfur 2021- No [id number] 5mL 5 mL, Unive rs hexafluorid 02-10 Intravenou i ty of e microsphr 14:30: 14:30 s, ONCE, 1 [place] (LUMASON) 00 :00 dose, On Medica l injection 5 Sat Branch mL 02/10/22 at 0930, Routine
count team member approving Restricted medication : GENNY MCALLISTER aspirin No 81mg 81 mg, Univers chewable 02-10 Enteral, ity of tablet 81 14:00: 01:46 DAILY, [place] mg 00 :38 First dose Medical on [facility] Branch 02/10/22 at 0900, Until Discontinu ed, Routine chlorhexidi Yes 15mL 15 mL, [facility] ers ne 02-10 Oral ity of (PERIDEX) 13:00: ([place] 0.12 % 00 Spit Out), Medical mouthwash BID, First Bran ch 15 mL dose on [facility] 02/10/22 at 0800, Until Discontinu ed, Routine famotidine No 20mg 20 mg, [facility] ers (PEPCID) 40 02-10 Enteral, ity of mg/5 mL (8 13:00: 15:54 BID, First [place] mg/mL) 00 :43 dose on Medical suspension [facility] Branch 20 mg 02/10/22 at 0800, Until Discontinu ed, Routine
Indicatio n for use: Mechanical Ventilatio n > 48 hours furosemide No 40mg 40 mg, [facility] ers (LASIX) 02-10 Slow IV ity of injection 13:00: 01:47 Push, [place] 40 mg 00 :25 Q12H, Medical First dose Branch on [facility] 02/10/22 at 0800, Until Discontinu ed, Routine piperacilli 2021- No 3.375g 3.375 g, [facility] n-tazobacta 02-10 IV ity of m (ZOSYN) 09:00: 13:14 Piggyback, [place] 3.375 g in 00 :47 Q8H ABX, Medic al NaCl 0.9% First dose Bran ch (NS) 50 mL on Sat MINI-BAG 02/10/22 at 0400, Until Discontinu ed, Administer over 4 Hours, 50 mL
Reas on for Anti-Infec tive: Empiric Therapy for Suspected Infection< br>Empi christian Therapy Site: Respirator y
Durat ion of therapy: 7 days SERTraline 2021- No 125mg Take 125 U nivers 100 mg 02-10 06-25 mg by ity of tablet 07:33: 00:00 mouth. [place] 37 :00 [facility] gabapentin 2021- No 400mg Take 400 U nivers 400 mg 02-10 06-25 mg by ity of capsule 07:32: 00:00 mouth. [place] 16 :00 [facility] fentaNYL PF 2021- No 25ug/h 25-200 U nivers (SUBLIMAZE) 02-10 06-27 mcg/hr ity o f STD 2,500 05:06: 17:49 (2.5-20 [place] mcg in NaCl 34 :05 mL/hr), IV Me dical 0.9% (NS) Infusion, Branc h 250 mL TITRATE, infusion CPOT/Pain RTU Scale Goals Determined by Provider, Starting on 02/10/22 at 0006
In itiate infusion at 25 mcg/hr. Titrate by 25 mcg/hr every 1 minute to 15 minutes to identified goal pain and/or sedation scores. Maximum dose = 200 mcg/hr. If goal not maintained at maximum allowed dose, contact prescriber .
NORepinephr 2021- No .05ug/k 0.05-0.5 Univers ine 4 mg in 02-10 06-26 g/min mcg/kg/min ity of 0.9% NaCl 04:56: 04:55 ?93.9 kg [place] 250 mL 23 :23 (17.6063-1 Medical infusion 76.0625 Branch RTU mL/hr, rounded to 17.61-176. 06 mL/hr), IV Infusion, TITRATE, MAP Goal > or = 65 mmHg, Starting on Sat02/09/22 at 2356, For 24 hours
I nitiate titration at 0.05 mcg/kg/min . &nb sp;Increas e by 0.05 mcg/kg/min every 30 seconds to 5 minutes as needed to reach and maintain goal blood pressure.& nbsp;&nbsp ;Maximum dose = 0.5 mcg/kg/min . &nb sp;If goal not maintained at maximum allowed dose, contact prescriber . &nb sp;Adminis ter only one peripheral intravenou s vasopresso r at a time.
midazolam 2021- No 2mg 2 mg, IV Uni vers (VERSED) 02-10 Push, ity of injection 2 03:00: 01:30 ONCE, 1 [place] mg 00 :00 dose, On Medical Sat Branch 02/09/22 at 2200, STAT midazolam 2021-0 2021- No 2mg 2 mg, IV Uni vers (VERSED) 02-10 Push, ity of injection 2 02:15: 01:30 ONCE, 1 [place] mg 00 :00 dose, On Medical Sat Branch 02/09/22 at 2115, STAT vecuronium 2021- No 8mg 8 mg, IV Un teri (NORCURON) 02-10 Push, ity of injection 8 02:15: 01:31 ONCE, 1 [place] mg 00 :00 dose, On [facility] Sat Branch 02/09/22 at 2115, STAT dexMEDEtomi 2021- No .2ug/kg 0.2-1.5 Univers dine 200 02-1027 /h mcg/kg/hr ity o f mcg in 0.9 02:03: 17:49 ?93.9 kg [place] % NaCl 50 36 :05 (4.695-35. Medi pierre mL 2124 Branch (PRECEDEX) mL/hr, RTU IV rounded to infusion 4.7-35.21 mL/hr), IV Infusion, TITRATE, Sedation-R ASS score (0 to -1), Starting on Sat02/09/22 at 2102
In itiate infusion at 0.2 mcg/kg/hr and titrate by 0.1 mcg/kg/hr every 30 minutes to goal sedation score. Maximum dose = 1.5 mcg/kg/hr. If goal not maintained at maximum allowed dose, contact prescriber .
furosemide 2021- No 20mg 20 mg, IV U nivers (LASIX) 02-10 Push, ity of injection 01:00: 00:32 ONCE, 1 [place] 20 mg 00 :00 dose, On Medical Fri Branch 02/09/22 at 2000, AMA levoFLOXaci 2021- No 750mg 750 mg, IV Univers n in D5W 02-10 Piggyback, ity of (LEVAQUIN) 00:45: 02:00 ONCE, 1 [place] 750 mg/150 00 :00 dose, On Medic al mL Fri Branch Piggyback 02/09/22 at 750 mg 194, Administer over 90 Minutes, 150 mL
R caleb for Anti-Infec tive: Documented Infection< br>Documen gilberto Infection Site: Respirator y
Du ration of Therapy: Other (see Comments) piperacilli 2021- No 3.375g 3.375 g, Univers n-tazobacta 02-10 IV ity of m (ZOSYN) 00:45: 00:42 [place] 3.375 g in 00 :00 ONCE, 1 Medica l NaCl 0.9% dose, On Branch (NS) 50 mL Fri MINI-BAG 02/09/22 at 1945, Administer over 30 Minutes, 50 mL
R caleb for Anti-Infec tive: Documented Infection< br>Documen gilberto Infection Site: Respirator y
Du ration of Therapy: Other (see Comments) naloxone 2021- No .4mg 0.4 mg, Unive rs (NARCAN) 02-10 Slow IV ity of injection 00:30: 23:18 [place], [place] 0.4 mg 00 :00 ONCE, 1 Medical dose, On Branch 02/09/22 at 1930, Routine ondansetron 2021- No 4mg 4 mg, Slow Univers (ZOFRAN 02-10 IV Push, ity of (PF)) 00:30: 23:18 ONCE, 1 [place] injection 4 00 :00 dose, On Medi pierre mg Fri Branch 02/09/22 at 1930, AMA HEPARIN 2021- No 4000U 4,000 Univers SODIUM 02-10 06-25 Units, IV ity of (PORCINE) 00:00: 00:34 [place], [place] 1,000 00 :00 ONCE, 1 Medical UNIT/ML dose, On Branch BOLUS ACS Fri ORDER SET 02/09/22 at 1900, AMA heparin 2021- No 1000U/h 1,000 Unive rs 25,000 02-09 06-27 Units/hr ity of Units/250 23:59: 17:49 (10 [place] mL 00 :05 mL/hr), IV Medical (Premixed Infusion, Branc h Bag) in TITRATE, 0.45 % NS Parameters in Admin. Instr., Starting on 02/09/22 at 1859
CA UTION - If LMWH given in ER, AVOID bolus and start next dose/drip 12 hrs after ER dosage.&nb sp; M ust program rate using programmab le infusion pump.&nbsp ; Evelyn ck with the ordering provider first prior to any administra tion should the patient be on existing/a dditional anticoagul ant therapy.&n bsp; Range, Dosing and Testing&nb sp; - aPTT < 40: & nbsp;Bolus 3000 units, increase rate 100 units/hr.& nbsp;- aPTT 40-49:&nbs p; In crease rate 50 units/hr. - aPTT 50-70:&nbs p; NO CHANGE.&nb sp;- aPTT 71-85:&nbs p; De crease rate 50 units/hr.& nbsp;- aPTT 86-100:&nb sp; H old 30 minutes, decrease rate 100 units/hr.& nbsp;- aPTT 101-150:&n bsp; Hold 60 minutes, decrease rate 150 units/hr.& nbsp;- aPTT > 150: Hold 60 minutes, decrease rate 300 units/hr.& nbsp;&nbsp ;Check aPTT 6 hours after initiation , then Q6H after every change, aPTT Q12H once therapeuti c levels are reached.&n bsp; DO NOT ADJUST INITIAL BOLUS OR INITIAL INFUSION RATE.
metoprolol 2021- No 50mg Take 50 mg Univers succinate 02-06 07-13 by mouth 2 ity of XL 50 mg 24 00:00: 00:00 (two[place] tablet 00 :00 times Medical daily. Branch SERTraline 2020-08 Yes 125mg Take 125 Un teri 100 mg 2-29 mg by ity of tablet 16:16: mouth. [address] SERTraline 2020-08 Yes 125mg Take 125 Un teri 100 mg 2-29 mg by ity of tablet 16:16: mouth. [address] SERTraline 2020-08 Yes 125mg Take 125 Un teri 100 mg 2-29 mg by ity of tablet 16:16: mouth. [address] SERTraline 2020-08 Yes 125mg Take 125 Un teri 100 mg 2-29 mg by ity of tablet 16:16: mouth. [address] carvediloL 2020-08 Yes 25mg Take 25 mg U nivers 25 mg 2-29 by mouth. ity of tablet 16:16: [address] gabapentin 2020-08 Yes 400mg Take 400 Un teri 400 mg 2-29 mg by ity of capsule 16:16: mouth. [address] carvediloL 2020-08 Yes 25mg Take 25 mg U nivers 25 mg 2-29 by mouth. ity of tablet 16:16: [address] gabapentin 2020-08 Yes 400mg Take 400 Un teri 400 mg 2-29 mg by ity of capsule 16:16: mouth. [address] carvediloL 2020-08 Yes 25mg Take 25 mg U nivers 25 mg 2-29 by mouth. ity of tablet 16:16: [address] gabapentin 2020-08 Yes 400mg Take 400 Un teri 400 mg 2-29 mg by ity of capsule 16:16: mouth. [address] carvediloL 2020-08 Yes 25mg Take 25 mg U nivers 25 mg 2-29 by mouth. ity of tablet 16:16: [place] 02 Medical Branch gabapentin 2020-08 Yes 400mg Take 400 Un teri 400 mg 2-29 mg by ity of capsule 16:16: mouth. [place] [facility] pantoprazol 2020-08 Yes Univer s e 40 mg EC 2-14 ity of tablet 00:00: [place] [facility] pravastatin 2020-08 Yes Univer s 40 mg 2-14 ity of tablet 00:00: [place] [facility] pantoprazol 2020-08 Yes Univer s e 40 mg EC 2-14 ity of tablet 00:00: [place] [facility] pantoprazol 2020-08 Yes Univer s e 40 mg EC 2-14 ity of tablet 00:00: [place] [facility] pantoprazol 2020-08 Yes Univer s e 40 mg EC 2-14 ity of tablet 00:00: [place] [facility] pantoprazol 2020-08 Yes Univer s e 40 mg EC 2-14 ity of tablet 00:00: [place] [facility] pravastatin 2020-08 Yes Univer s 40 mg 2-14 ity of tablet 00:00: [place] [facility] pantoprazol 2020-08 Yes Univer s e 40 mg EC 2-14 ity of tablet 00:00: [place] [facility] pravastatin 2020-08 Yes Univer s 40 mg 2-14 ity of tablet 00:00: [place] [facility] pantoprazol 2020-08 Yes Univer s e 40 mg EC 2-14 ity of tablet 00:00: [place] [facility] pravastatin 2020- Yes Univer s 40 mg 2-14 ity of tablet 00:00: [place] [facility] pravastatin 2020-2021- No Unive rs 40 mg 2-14 07-13 ity of tablet 00:00: 00:00 [place] 00 :00 Medical Branch traMADoL 50 2020- Yes Univer s mg tablet 2-12 ity of 00:00: [place] [facility] traMADoL 50 2020- Yes Univer s mg tablet 2-12 ity of 00:00: [place] [facility] traMADoL 50 2020-08 Yes Univer s mg tablet 2-12 ity of 00:00: [place] [address] Medical Branch traMADoL 50 2020-08 Yes Univer s mg tablet 2-12 ity of 00:00: [place] 00 Medical Branch traMADoL 50 2020-08- No Unive rs mg tablet 09-30- ity of 00:00: 00:00 [place] 00 :00 Medical Branch nitroglycer 2020-08 Yes Univer s [...] 00:00: [place] tablet 00 Medical Branch buPROPion 2020-08- No Univers XL 300 mg 1-21 - ity of 24 hr 00:00: 00:00 [place] tablet 00 :00 Medical Branch losartan 50 2020-08 Yes Univer s mg tablet 1-18 ity of 00:00: [place] 00 Medical Branch losartan 50 2020-08 Yes Univer s mg tablet 1-18 ity of 00:00: [place] 00 Medical Branch losartan 50 2020-08 Yes Univer s mg tablet 1-18 ity of 00:00: [place] 00 Medical Branch losartan 50 2020-08 Yes Univer s mg tablet 1-18 ity of 00:00: [place] [facility] losartan 50 2020-08- No Unive rs mg tablet 1-18 06-25 ity of 00:00: 00:00 [place] 00 :00 Medical Branch clopidogreL 2020-08 Yes Univer s 75 mg 0-21 ity of tablet 00:00: [place] [facility] clopidogreL 2020-08 Yes Univer s 75 mg 0-21 ity of tablet 00:00: [place] [facility] amLODIPine 2020- Yes Univers 5 mg tablet 0-21 ity of 00:00: [place] [address] Medical Branch clopidogreL 2020-08 Yes Univer s 75 mg 0-21 ity of tablet 00:00: [place] [facility] clopidogreL 2020-08 Yes Univer s 75 mg 0-21 ity of tablet 00:00: [place] [address] Medical Branch clopidogreL 2020-08 Yes Univer s 75 mg 0-21 ity of tablet 00:00: [place] [address] Medical Branch amLODIPine 2020- Yes Univers 5 mg tablet 0-21 ity of 00:00: [place] [address] Medical Branch clopidogreL 2020-08 Yes Univer s 75 mg 0-21 ity of tablet 00:00: [place] [address] Medical Branch amLODIPine 2020-08 Yes Univers 5 mg tablet 0-21 ity of 00:00: [place] [address] Medical Branch clopidogreL 2020-08 Yes Univer s 75 mg 0-21 ity of tablet 00:00: [place] [address] Medical Branch amLODIPine 2020- Yes Univers 5 mg tablet 0-21 ity of 00:00: [place] [facility] amLODIPine 2020-2021- No Univer s 5 mg tablet 0-21 07-13 ity of 00:00: 00:00 [place] 00 :00 Medical Branch aspirin 81 2019-2020- No 81mg QD Take [address] [facility] chewable 8-20 08-20 tablet (81 L ukes tablet 00:00: 23:59 mg total) Medic al 00 :00 by mouth Center daily. amLODIPine Yes 10mg QD Take [address] (NORVASC) 5 8-19 by mouth Luke s MG tablet 15:01: daily. Medica l 48 Center gabapentin 2019-0 Yes 400mg QD Take [address] (NEURONTIN) 8-19 mg by [facility] 400 MG 15:01: mouth Medical capsule 48 daily. Center carvediloL Yes 25mg QD Take 25 mg [...] mouth Medical tablet 48 daily. Center pantoprazol Yes 40mg QD Take [address] [facility] 8-19 by mouth [facility] (PROTONIX) 15:01: daily. Medic al 40 MG 48 Center tablet multivitami Yes 1{tbl} QD Take [address] [facility] per 8- tablet by [facility] tablet 15:01: mouth Medical 48 daily. [place] clopidogreL Yes 75mg QD Take [address] [facility] (PLAVIX) 75 8-19 by mouth Luke s mg tablet 15:01: daily. Medica l 48 [place] atorvastati 2020- No 80mg QD Take [address] [facility] n (LIPITOR) 8-06 04- tablet (80 L ukes 80 MG 00:00: 23:59 mg total) Medica l tablet 00 :00 by mouth Center nightly. Ditropan Ditropan Yes [place] 1/2 tablet Common 9 [place] [facility] 00:00: - [facility] Testosteron Testosteron Yes [place]aina 1 ml Common e Cypionate e Cypionate -03 [place] [facility] 00:00: - [facility] Coreg Coreg Yes Elaina not Common [place] defined Spirit [facility] Isosorbide Isosorbide Yes Elaina 1 tablet Common Mononitrate Mononitrate [place] in the Spirit ER ER morning [facility] Vitamin D3 Vitamin D3 Yes Elaina 1 capsule Common [facility] Potassium Potassium Yes Elaina 1 tablet Common Chloride Chloride [place]yl[place] with food Spirit Porsche ER Porsche ER [facility] Gabapentin Gabapentin Yes Elaina 1 capsule Common [place] [facility] Zocor Zocor Yes Elaina 1 tablet Common [place] in the [facility] evening [facility] Lotrisone Lotrisone Yes Elaina APPLY Com mon Skylar TOPICALLY Spirit TO [facility] DAY [facility] AT BED [facility] Amlodipine Amlodipine Yes Elaina 1 tablet Common Besylate Besylate Skylar [facility] rit [facility] Wellbutrin Wellbutrin Yes Elaina 1 tablet Common XL XL [place] in the Spirit morning [facility] Hydrochloro Hydrochloro Yes Elaina 1 tablet Common thiazide thiazide [place] in the pir morning [facility] Vitamin Vitamin Yes Elaina not Common [id number] Skylar defined [facility] Acid Acid [facility] Zoloft Zoloft Yes Elaina 1 tablet Common [facility]yl[facility] Pantoprazol Pantoprazol Yes Elaina 1 tablet Common e Sodium e Sodium [place] [facility] Nuvigil Nuvigil Yes Elaina 1 tablet Comm on Skylar in the [facility] morning [facility] Omeprazole Omeprazole Yes Elaina 1 capsule Common [place] Vital Signs Vital Name Observation Time Observation Value Comments Source HEIGHT 2020-04-04 00:00:00 182.9 cm WEIGHT 2020-04-04 00:00:00 97.9 kg Systolic blood 2022-02-28 17:12:00 130 mm[Hg] Univer sity of pressure [facility] Diastolic blood 2022-02-28 17:12:00 76 mm[Hg] [facility] Heart rate 2022-02-28 17:12:00 83 /min [facility] Body temperature 2022-02-28 17:12:00 36.61 Annalise [facility] Respiratory rate 2022-02-28 17:12:00 18 /min [facility] Oxygen saturation in 2022-02-28 17:12:00 89 /min [facility] blood by [facility] Pulse oximetry Branch Body weight 2022-02-27 08:27:[address] [facility] BMI 2022-02-27 08:27:00 27.00 kg/m2 [facility] Body height 2022-02-10 08:00:[address] [facility] Body height 2021-08-16 22:23:[address] [facility] Body weight 2021-08-16 22:23:[address] [facility] BMI 2021-08-16 22:23:00 30.57 kg/m2 [facility] HEIGHT 2020-04-04 00:00:00 182.9 cm WEIGHT 2020-04-04 00:00:00 97.9 kg Procedures Procedure Date / Time Performing Clinician Source Performed EXTERNAL PROVIDER RECORDS 2022-03-09 05:01:00 Doctor Unassigned, [facility] COVID-19 (ID NOW RAPID 2022-02-28 17:05:00 Mikey Monge [facility] TESTING) [facility] XR CHEST 1 VW 2022-02-28 16:13:13 Mcallister, [facility] acute hospital BASIC METABOLIC PANEL 2022-02-28 10:37:00 Babar Mcallister [facility] (NA, K, CL, CO2, GLUCOSE, Medica l Branch BUN, CREATININE, CA) CBC WITHOUT DIFF 2022-02-28 10:37:00 Babar Mcallister [facility] PREPARE PACKED RBC 2022-02-28 05:15:05 [facility] US DUPLEX VENOUS ARM 2022-02-26 13:32:00 John Castaneda [facility] RIGHT - BY VASCULAR LAB [facility] CBC WITHOUT DIFF 2022-02-26 08:36:00 John Castaneda [facility] CBC WITHOUT DIFF 2022-02-25 22:15:00 John Castaneda [facility] POCT GLUCOSE (AUTOMATED) 2022-02-25 11:21:00 Moe Darling [facility] CBC WITHOUT DIFF 2022-02-25 09:40:00 John Castaneda [facility] TRANSFUSE PACKED RBC 2022-02-25 05:54:00 [facility] PREPARE PACKED RBC 2022-02-25 05:40:24 John Castaneda [facility] POCT GLUCOSE (AUTOMATED) 2022-02-25 04:44:00 Moe Darling [facility] CBC WITHOUT DIFF 2022-02-25 01:06:00 [facility]EL [facility]ENTIFICATION 2022-02-24 20:38:[address] [facility] XR KUB 2022-02-24 20:24:00 Shannon Khoury [facility] CBC WITHOUT DIFF 2022-02-24 18:47:00 Leonel [facility] HB ABO GROUPING 2022-02-24 18:47:00 Leonel [facility] CBC WITHOUT DIFF 2022-02-24 08:07:00 Leonel John [facility] COMP. METABOLIC PANEL 2022-02-24 08:06:00 Leonel [facility] ([id number]) [facility] COMP. METABOLIC PANEL 2022-02-23 09:01:00 Leonel [facility] ([id number]) [facility] CBC WITHOUT DIFF 2022-02-23 09:01:00 John Castaneda [facility] PREPARE PACKED RBC 2022-02-23 05:15:06 Moe Darling [facility] MAGNESIUM 2022-02-22 08:36:00 Leonel John [facility] COMP. METABOLIC PANEL 2022-02-22 08:36:00 Leonel [facility] ([id number]) [facility] CBC WITHOUT DIFF 2022-02-22 08:36:00 Leonel [facility] TRANSFUSE PACKED RBC 2022-02-21 21:00:00 [facility] OVA AND PARASITE EXAM 2022-02-21 12:03:00 Cat Collado Uni [facility] FECAL [facility] CBC WITHOUT DIFF 2022-02-21 09:09:00 [facility] [place] PHOSPHORUS 2022-02-21 09:08:00 Tamia Lofton [place] [facility] Medical [place] MAGNESIUM 2022-02-21 09:08:00 Kirsty [facility] COMP. METABOLIC PANEL 2022-02-21 09:08:00 John Castaneda [facility] ([id number]) [facility] CBC WITHOUT DIFF 2022-02-21 09:08:00 Leonel [facility] CLOSTRIDIUM DIFFICILE 2022-02-20 23:32:00 Cat Collado [facility] TOXIN [facility] CBC WITHOUT DIFF 2022-02-20 22:32:00 John Castaneda [facility] [place] MODIFIED BARIUM 2022-02-20 20:20:00 John Castaneda [facility] SWALLOW [facility] CBC WITHOUT DIFF 2022-02-20 16:05:00 Leonel [facility] OCCULT (GUAIAC) BLOOD 2022-02-20 11:43:00 Manoj Church [facility] OSMOLALITY, SERUM OR 2022-02-20 08:46:00 Tamia Lofton [facility] PLASMA [facility] COMP. METABOLIC PANEL 2022-02-20 08:46:00 John Castaneda [facility] ([id number]) [facility] CBC WITHOUT DIFF 2022-02-20 08:46:00 Leonel [facility] N-TERMINAL PRO-BNP 2022-02-20 08:46:00 Tamia Lofton [facility] PANEL IDENTIFICATION 2022-02-20 06:40:[address] [facility] ABORH CONFIRMATION (LAB 2022-02-20 06:40:00 Manoj Church [facility] ONLY) [facility] HB ABO GROUPING 2022-02-20 04:00:00 Manoj Church [facility] CBC WITH DIFF 2022-02-19 15:33:00 Leonel John [facility] BASIC METABOLIC PANEL 2022-02-19 15:32:00 [facility] (NA, K, CL, CO2, GLUCOSE, Medica l Branch BUN, CREATININE, CA) BASIC METABOLIC PANEL 2022-02-18 08:24:00 [facility] (NA, K, CL, CO2, GLUCOSE, Medica l Branch BUN, CREATININE, CA) CBC WITHOUT DIFF 2022-02-18 08:24:00 Esvin [facility] PHOSPHORUS 2022-02-17 10:49:00 Kirsty [facility] ALBUMIN 2022-02-17 10:49:00 Kirsty [facility] MAGNESIUM 2022-02-17 10:49:00 Kirsty [facility] BASIC METABOLIC PANEL 2022-02-17 10:49:00 Saleem [facility] (NA, K, CL, CO2, GLUCOSE, Medica l Branch BUN, CREATININE, CA) CBC WITH DIFF 2022-02-17 10:49:00 Saleem [facility] SODIUM 2022-02-16 22:18:00 Kirsty [facility] XR CHEST 1 VW 2022-02-16 16:37:00 Kirsty [facility] FERRITIN SERUM 2022-02-16 15:41:00 Kirsty [facility] IRON 2022-02-16 15:41:00 Kirsty [facility] TOTAL IRON BINDING 2022-02-16 15:41:00 Tamia [facility] PROCALCITONIN 2022-02-16 15:41:00 Elicia Mongeshua [facility] POTASSIUM, URINE RANDOM 2022-02-16 15:31:00 Kirsty [facility] SODIUM, URINE RANDOM 2022-02-16 15:31:00 Kirsty Msacosta [facility] MAGNESIUM 2022-02-16 09:57:00 Asaally [facility] BASIC METABOLIC PANEL 2022-02-16 09:57:00 [facility] (NA, K, CL, CO2, GLUCOSE, Medica l Branch BUN, CREATININE, CA) N-TERMINAL PRO-BNP 2022-02-16 09:57:00 Tamia Lofton [facility] BASIC METABOLIC PANEL 2022-02-15 08:49:00 [facility] (NA, K, CL, CO2, GLUCOSE, Medica l Branch BUN, CREATININE, CA) CBC WITH DIFF 2022-02-15 08:49:00 [facility] [place] [facility] BASIC METABOLIC PANEL 2022-02-14 21:19:00 [facility] (NA, K, CL, CO2, GLUCOSE, Medica l Branch BUN, CREATININE, CA) XR CHEST 1 VW 2022-02-14 20:47:00 [facility] SPUTUM CULTURE 2022-02-14 17:01:00 Moe Darling [facility] MAGNESIUM 2022-02-14 08:52:00 [facility]OLIC PANEL 2022-02-14 08:52:00 Mcallister [facility] (NA, K, CL, CO2, GLUCOSE, Medica l Branch BUN, CREATININE, CA) CBC WITH DIFF 2022-02-14 08:52:00 Mcallister [facility] BASIC METABOLIC PANEL 2022-02-13 19:08:00 Moe Darling [facility] (NA, K, CL, CO2, GLUCOSE, Medica l Branch BUN, CREATININE, CA) MAGNESIUM 2022-02-13 10:28:00 Esvin [facility] BASIC METABOLIC PANEL 2022-02-13 10:28:00 Mcallister [facility] (NA, K, CL, CO2, GLUCOSE, Medica l Branch BUN, CREATININE, CA) CBC WITH DIFF 2022-02-13 10:28:00 Esvin [facility] XR CHEST 1 VW 2022-02-12 13:26:00 Esvin [facility] BASIC METABOLIC PANEL 2022-02-12 10:06:00 Moe Darling [facility] (NA, K, CL, CO2, GLUCOSE, Medica l Branch BUN, CREATININE, CA) CBC WITHOUT DIFF 2022-02-12 10:06:00 Kraig Eden [facility] ABG+COOX+NA+K+GLU+CA2+ 2022-02-12 09:49:00 Moe Darling [facility] POCT GLUCOSE (AUTOMATED) 2022-02-12 06:10:[address] [facility] BASIC METABOLIC PANEL 2022-02-11 22:44:00 [facility] (NA, K, CL, CO2, GLUCOSE, [facility] Medica l Branch BUN, CREATININE, CA) ACTIVATED PARTIAL 2022-02-11 22:29:00 Kraig Eden [facility] SPUTUM CULTURE 2022-02-11 22:07:00 L[facility] ACTIVATED PARTIAL 2022-02-11 11:11:00 Meek [facility] CBC WITHOUT DIFF 2022-02-11 09:41:00 Meek [facility] TROPONIN I 2022-02-10 22:11:00 Moe Darling [facility] CRITICAL CARE 2022-02-10 21:31:09 Kraig Eden [facility] TROPONIN I 2022-02-10 15:53:00 Moe Darling [facility] ACTIVATED PARTIAL 2022-02-10 15:53:00 [facility] (TTE) 2022-02-10 14:20:50 Palomo Darlingdro [facility] COMPLETE W/ CONTRAST Medical Bra [facility] CBC WITH DIFF 2022-02-10 09:35:00 Lisset M[facility] URINE CULTURE 2022-02-10 08:59:00 Moe Darling [facility] MAGNESIUM 2022-02-10 08:02:00 Lisset [facility] TROPONIN I 2022-02-10 08:02:00 Moe Darling [facility] COMP. METABOLIC PANEL 2022-02-10 08:02:00 [id number] ACTIVATED PARTIAL 2022-02-10 08:02:00 Moe Darling [facility] MRSA / MSSA SCREEN BY 2022-02-10 08:02:00 Moe Darling Un [facility] AC PANEL 20 + LACTIC ACID 2022-02-10 07:45:00 Stan Darling [facility] XR CHEST 1 VW 2022-02-10 06:45:18 Moe Darling [facility] [place] INSERT EMERGENCY 2022-02-10 05:30:00 Kraig Eden [facility] ENDOTRACH AIRWAY Medical Branch XR CHEST 1 VW 2022-02-10 02:08:04 Kraig Eden o [facility] HEPARIN ANTI-XA, 2022-02-10 00:29:00 Kraig Eden [facility] UNFRACTIONATED HEPARIN Medical B ranch AC PANEL 20 + LACTIC ACID 2022-02-10 00:15:00 Kraig Eden [facility] CT HEAD WO CONTRAST 2022-02-09 23:50:32 Kraig Eden [facility] CT THORAX WO CONTRAST 2022-02-09 23:50:32 Kraig Eden [facility] URINALYSIS 2022-02-09 23:26:00 Kraig Eden o [facility] URINE DRUG (IMMUNOASSAY) 2022-02-09 23:26:00 Kraig Eden [facility] - COMPREHENSIVE DRUG Medical Bra nc SCREEN W/O REFLEX COVID-19 (ID NOW RAPID 2022-02-09 23:14:00 Kraig Eden [facility] TESTING) Medical Branch BLOOD CULTURE SCREEN 2022-02-09 23:13:00 Kraig Eden [facility] BLOOD CULTURE SCREEN 2022-02-09 23:11:00 Kraig Eden [facility] LIPASE 2022-02-09 23:11:00 Kraig Eden [facility] TROPONIN I 2022-02-09 23:11:00 Kraig Eden [facility] COMP. METABOLIC PANEL 2022-02-09 23:11:00 Kraig Eden [facility] ([id number]) [facility] CBC WITH DIFF 2022-02-09 23:11:00 Kraig Eden [facility] PROTHROMBIN TIME / INR 2022-02-09 23:11:00 Kraig Eden [facility] ACTIVATED PARTIAL 2022-02-09 23:11:00 Kraig Eden [facility] N-TERMINAL PRO-BNP 2022-02-09 23:11:00 Kraig Eden [facility] AC PANEL 20 + LACTIC ACID 2022-02-09 23:01:00 [facility]OUT[facility] & RHYTHM 2022-02-09 22:50:04 Kraig Eden [facility] XR CHEST 1 VW 2022-02-09 22:46:00 Kraig Eden [facility] EXTERNAL PROVIDER RECORDS 2022-02-09 05:01:00 Doctor Unassigned, [facility] EMERGENCY DEPARTMENT 2022-02-09 05:01:00 Doctor Unassigned, [facility] DOCUMENTS [place] [facility] [id number] 2022-01-31 00:00:00 RASSA [facility] [id number] 2022-01-31 00:00:00 RASSA [facility] [id number] 2022-01-31 00:00:00 RASSA [facility] [id number] 2022-01-31 00:00:00 RASSA [facility] [id number] 2022-01-31 00:00:00 RASSA [facility] EXTERNAL PROVIDER RECORDS 2021-09-12 06:01:00 Doctor Unassigned, [facility] [place] [facility] MEDICAL RELEASE/CLEARANCE 2021-08-28 06:01:00 Doctor Unassigned, [facility] FORMS [place] [facility] Plan of Care Planned Activity Planned Date Details Comments Source Future Scheduled 2021-04-[address] [facility] Test 00:00:00 (Season Ended) [code = Medic al Center INFLUENZA VACCINE (Season Ended)] Future [...] 00:00:00 (1 of 1 - Medical Center [id number] PCV13) [code = PNEUMOCOCCAL 65+ YRS (1 of 1 - [id number] PCV13)] Future Scheduled 1992 SHINGLES VACCINES (1 [...] Date/Time Type Type Clinicians Facility Department ID 2022-01-31 Inpatient UR Ray, Yaa HCACL INTE [id number] [facility] 13:26:00 [id number] [facility] 2021-09-13 Outpatient [facility] [id number] Common 12:50:58 24725 [facility] 2021-09-13 Outpatient [facility] [id number] Common 12:29:13 [id number] [facility] 2021-09-13 Outpatient zzzErickson [facility] [id number] Common 12:24:25 , Erickson 58859 Spiri t [facility] 2021-09-13 Outpatient NATALIE Coleman [facility] [id number] Common 11:21:20 Erickson 01662 [facility] 2021-09-01 Inpatient R CATRACHO, [facility] SOR [id number] Univers 15:41:48 ML ity [facility] 2020-04-05 Inpatient ER BERSHAD, [facility] Neurology [id number] [facility] 02:12:00 MADELYN 2020-01-19 Inpatient Dabaghi, HCAPM LABO [id number] [facility] 16:02:00 [facility] [id number] [facility] 2022-03-09 2022-03-09 Orders Doctor OLIVIER 1.2.840.114 [id number] Univers 00:00:00 00:00:00 Only Unassigned, GILBERTO 350.1.13.10 ity of [place] [facility] 4.2.7.2.686 Patel as [phone] [facility] [address] 2022-03-01 2022-03-01 Transition ROWDY Pak 1.2.840.114 [id number] Univers 00:00:00 00:00:00 of Care Sayda BORRERO 350.1.13.10 it y [place] [id number] [facility] [address] 2022-02-09 2022-02-28 Inpatient X MIKEY OMNGE [facility] KADE 1 [id number] Univers 17:40:00 13:54:00 MIKEY MONGE ity of [facility] 2022-02-09 2022-02-28 [facility] Kraig Eden [facility] 1.2.840.1 14 [id number] Univers 17:40:00 13:54:00 Encounter Moe Darling [facility] 350.1.13 .10 ity of Mikey Monge 4.2.7.2.686 [facility] [phone] [address] ([facility]) 2022-02-02 2022-02-09 Inpatient Yaa Hay [facility] INTE [id number] [facility] 11:22:00 13:34:00 [id number] [facility] 2022-01-18 2022-01-18 Outpatient ERICKSON_R [facility] 86 - [place] 03:05:00 03:05:00 [facility] 2022-01-18 2022-01-18 Outpatient Jared [facility] [id number] 00:00:00 00:00:00 Erickson [id number] Barber [id number] 2022-01-09 2022-01-09 Outpatient ERICKSON_R [facility] 86 - [place] 01:07:00 01:07:00 524 [facility] 2022-01-09 2022-01-09 Outpatient Jared [facility] [id number] 00:00:00 00:00:00 Erickson [id number] Barber [id number] 5613-05-10 2021-12-26 Outpatient ERICKSON_R [facility] 8602 - [place] 03:29:00 03:29:00 510 [facility] 2021-12-26 2021-12-26 Outpatient Jared [facility] [id number]-[id number] 00:00:00 00:00:00 Erickson [id number] Barber [id number] 2021-11-07 2021-11-07 Emergency E KESSLER, KM KM 7500 [facility] 14:09:00 17:46:00 [facility] 2021-11-06 2021-11-06 Outpatient ERICKSON_R [facility] 8602 [place] 11:01:00 11:01:00 321 [facility] 2021-11-06 2021-11-06 Outpatient Jared [facility] [id number] eba-[id number] 00:00:00 00:00:00 Erickson [id number] Barber [id number] 1943-03-21 2021-11-06 Outpatient Coleman, [facility] [id number] [id number] 00:00:00 00:00:00 Erickson [id number] Barber [id number] 2021-11-03 2021-11-03 Outpatient ERICKSON_R [facility] 86 - [place] 02:00:00 02:00:00 318 [facility] 2021-11-03 2021-11-03 Outpatient Jared, [facility] [id number]-[id number] 00:00:00 00:00:00 Erickson [id number]-[id number]-[id number] Barber [id number] 2021-10-26 2021-10-26 Outpatient ERICKSON_R [facility] 86 [place] 06:49:00 06:49:00 310 [facility] 2021-10-26 2021-10-26 Outpatient Jared, [facility] [id number] 00:00:00 00:00:00 Erickson [id number] Barber [id number] 2021-10-26 2021-10-26 Outpatient Jared [facility] [id number] 00:00:00 00:00:00 Erickson [id number] Barber [id number] 2021-10-26 2021-10-26 Outpatient Jared [facility] [id number] 00:00:00 00:00:00 Erickson [id number]-11ec-[id number] Barber [id number] 2021-10-24 2021-10-24 Outpatient ERICKSON_R [facility] 86 [place] 02:59:00 02:59:00 308 [facility] 2021-10-20 2021-10-20 Outpatient ERICKSON_R [facility] 8603 - [place] 02:23:00 02:23:00 304 [facility] 2021-10-20 2021-10-20 Outpatient Jared, [facility] [id number] [id number] 00:00:00 00:00:00 Erickson [id number]-[id number] Barber [id number] 2021-09-30 2021-09-30 Outpatient ERICKSON_R [facility] 8603 - [place] 07:32:00 07:32:00 212 [facility] 2021-09-12 2021-09-12 Orders Doctor OLIVIER 1.2.840.114 [id number] Univers 00:00:00 00:00:00 Only Unassigned, GILBERTO 350.1.13.10 [place] [facility] 4.2.7.2.686 Patel as [id number] [address] 2021-09-08 2021-09-08 [facility] [id number] Univers 14:45:00 14:45:00 [facility] 2021-09-08 2021-09-08 [facility] [id number] Univers 13:30:00 13:30:00 ML [id number] [facility] 2021-08-28 2021-08-28 Orders Doctor OLIVIER 1.2.840.114 [id number] Univers 00:00:00 00:00:00 Only Unassigned, GILBERTO 350.1.13.10 it[place] [facility] 4.2.7.2.686 Patle as [id number] [address] 2021-08-26 2021-08-26 Outpatient ERICKSON_R [facility] 8603 - [place] 04:34:00 04:34:00 108 Commun i ty Hospita [facility] 2021-08-16 2021-08-16 [facility] [id number] Univers 16:25:00 23:59:00 [facility] 2021-08-16 2021-08-16 [facility] 1.2.944.802 [id number] Univers 16:15:00 16:43:15 Visit [facility] 350.1.13.10 it y of [place] 4.2.7.2.686 Patel as BRANDON?BLEA [phone] [address] MEDICAL OFFICE BUILDING 2021-07-22 2021-07-22 Outpatient ERICKSON_R [facility] 8603 - [place] 05:22:00 05:22:00 204 [facility] 2021-07-10 2021-07-10 Outpatient ERICKSON_R [facility] 8603 - [place] 11:19:00 11:19:00 122 [facility] 2021-07-10 2021-07-10 Outpatient Coleman, [facility] [id number] 00:00:00 00:00:00 Erickson baf-11ec-[id number] Barber [id number] 1236-11-18 2021-07-06 ambulatory STLMLC STLMLC [id number] Common 00:00:00 00:00:00 [facility] 2021-05-03 2021-05-03 Outpatient STLMLC STLMLC [id number] Common 00:00:00 00:00:00 [facility] 2021-04-28 2021-04-28 Outpatient ERICKSON_R [facility] 8602 - [place] 04:22:00 04:22:00 910 [facility] 2021-04-28 2021-04-28 Outpatient STLMLC STLMLC [id number] Common 00:00:00 00:00:00 [facility] 2021-04-28 2021-04-28 Outpatient Coleman, [facility] [id number] 00:00:00 00:00:00 Erickson [id number] Barber [id number] 2021-04-18 2021-04-18 Outpatient ERICKSON_R [facility] [id number] -[id number] [place] 01:12:00 01:12:00 831 [facility] 2021-03-14 2021-03-14 Outpatient ERICKSON_R [facility] [id number] -[id number] [place] 12:57:00 12:57:00 727 [facility] 2021-01-13 2021-01-13 Outpatient ERICKSON_R [facility] [id number] -[id number] [place] 02:36:00 02:36:00 528 [facility] 2021-01-10 2021-01-10 Outpatient [facility] [id number] Common 00:00:00 00:00:00 [facility] 2021-01-09 2021-01-09 Outpatient ERICKSON_R [facility] [id number] -[id number] [place] 10:40:00 10:40:00 524 [facility] 2020-12-29 2020-12-29 Outpatient ERICKSON_R [facility] [id number] -[id number] [place] 01:03:00 01:03:00 513 [facility] 2020-12-29 2020-12-29 Outpatient ERICKSON_R [facility] [id number] -[id number] [place] 01:03:00 01:03:00 518 [facility] 2020-11-29 2020-11-29 Outpatient [facility] [id number] Common 00:00:00 00:00:00 [facility] 2020-11-24 2020-11-24 Outpatient ERICKSON_R [facility] [id number] -[id number] [place] 01:02:00 01:02:00 408 [facility] 2020-10-15 2020-10-15 Outpatient ERICKSON_R [facility] [id number] [id number] [place] 01:02:00 01:02:00 227 [facility] 2020-10-13 2020-10-13 Outpatient ERICKSON_R [facility] [id number] -[id number] [place] 09:17:00 09:17:00 225 [facility] 2020-10-10 2020-10-10 Outpatient ERICKSON_R [facility] [id number] [id number] [place] 03:46:00 03:46:00 222 [facility] 2020-10-10 2020-10-10 Outpatient Jared, [facility] [id number] 00:00:00 00:00:00 Erickson [id number] Barber [id number] 2020-09-09 2020-09-09 Outpatient ERICKSON_R [facility] [id number] [id number] [place] 09:10:00 09:10:00 122 [facility] 2020-09-06 2020-09-06 Outpatient ERICKSON_R [facility] [id number] -[id number] [place] 03:48:00 03:48:00 119 [facility] 2020-09-06 2020-09-06 Outpatient Coleman, [facility] [id number] 00:00:00 00:00:00 Erikcson [id number] Barber [id number] 2020-08-05 2020-08-05 Outpatient ERICKSON_R [facility] 8603 - [place] 01:02:00 01:02:00 218 [facility] 2020-08-05 2020-08-05 Outpatient ERICKSON_R [facility] [id number] -[id number] [place] 01:02:00 01:02:00 112 [facility] 2020-04-29 2020-04-29 Outpatient [facility] [id number] Common 16:00:00 16:00:00 t Specialty/U Sp fitz Specialty rology - [facility]rology Clinic [facility] 2020-04-29 2020-04-29 Outpatient [facility] [id number] Common 13:00:00 13:00:00 t Specialty/U Sp fitz Specialty rology - [facility]rology Clinic [facility] 2020-03-22 2020-03-22 Laboratory Lab, [facility] 1.2.840.114 [id number] 14:05:14 14:25:14 Only [facility] 350.1.13.10 [place] [facility] 4.2.7.2.686 Professio [id number] nal [address] 2020-01-28 2020-01-28 Outpatient [facility] [id number] Common 13:15:00 13:15:00 t Specialty/U Sp fitz Specialty rology - [facility] /Urology Clinic [facility] 2020-01-25 2020-01-25 Outpatient Celestine Spraguet [id number] Common 13:46:00 13:46:00 t Specialty/U Sp fitz Specialty rology - [facility] Clinic [facility] 2020-01-23 2020-01-23 Outpatient MIKE YanesU SURG [id number] [facility] 09:30:00 09:30:00 [facility] 2020-01-23 2020-01-23 Outpatient ESTELA YanesWU SURG [id number] - [facility] 09:30:00 09:30:00 [facility] 2019-12-28 2019-12-28 Outpatient Celestine [facility] [id number] Common 13:30:00 13:30:00 t Specialty/U Sp fitz Specialty rology - [facility]rology Clinic [facility] Results Test Description Test Time Test Comments Results Result Comments Source BASIC METABOLIC PANEL (NA, K, CL, CO2, GLUCOSE, BUN, 2022-02 11:25:10 CREATININE, CA) Test Item Value Reference Range Interpretation Comme nts NA (test code = 2122454615) 140 mmol/L 135-145 K (test code = 9415531307) 3.7 mmol/L 3.5-5 CL (test code = 5395086484) 117 mmol/L 98-108 H CO2 TOTAL (test code = 1981379233) 21 mmol/L 23-31 L AGAP (test code = 2256086808) 2-16 BUN (test code = 2554609055) 23 mg/dL 7-23 GLUCOSE (test code = 7905610574) 87 mg/dL 70-110 CREATININE (test code = 0.82 mg/dL 0.6-1.25 5783019105) CALCIUM (test code = 1573281463) 7.9 mg/dL 8.6-10.6 L eGFR (test code = 7806244916) mL/min/1.73m2 ADILENE (test code = ADILENE) Association of Glomerular Filtration Rate (GFR) and Staging of Kidney Disease* + +-------- + ------+| GFR (mL/min/1.73 m2) ?| With Kidney Damage ?| ?Without Kidney Damage+ +-- + +| ?>90 ?| ?Stage one ?| ? Normal ?+ +------- + -------+| ?60-89 ?| ?Stage two ?| ? Decreased GFR ? + +-------- + ------+| ?30-59 ?| ?Stage three ?| ? Stage three ? + +-------- + ------+| ?15-29 ?| ?Stage four ? | ? Stage four ?+ +------- + -------+| ?<15 (or dialysis) ? ?| ?Stage five ? | ? Stage five ?+ +------- + -------+ *Each stage assumes the associated GFR level has been in effect for at least three months. ?Stages 1 to 5, with or without kidney disease, indicate chronic kidney disease. Notes: Determination of stages one and two (with eGFR >59mL/min/1.73 m2) requires estimation of kidney damage for at least three months as defined by structural or functional abnormalities of the kidney, manifested by either:Pathological abnormalities or Markers of kidney damage (including abnormalities in the composition of the blood or urine or abnormalities in imaging tests). Lab Interpretation (test code = Abnormal 14809-2) [facility] WITHOUT [id number] 10:57:45 Test Item Value Reference Range Interpretation Comments WBC (test code = 6690-2) See_Comment [A utomated message] The system [employer] generated this result transmit gilberto reference range : 4.20 - 10.70 10*3/?L. The reference range was not used to interpret this result as normal/abnormal . RBC (test code = 789-8) See_Comment L [Au tomated message] The system [employer] generated this result transmit gilberto reference range : 4.26 - 5.52 10* 6/?L. The reference r lisa was not used to interpret this result as normal/abnormal . HGB (test code = 718-7) 7.9 g/dL 12.2-16.4 L HCT (test code = 4544-3) 24.8 % 38.4-49.3 L MCH (test code = 785-6) 29.4 pg 26.1-32.7 MCV (test code = 787-2) 92.2 fL 81.7-95.6 MCHC (test code = 786-4) 31.9 g/dL 31.2-35 PLT (test code = 777-3) See_Comment H [Au tomated message] The system [employer] generated this result transmit gilberto reference range : 150 - 328 10*3/?L. The reference range was not used to interpret this result as normal/abnormal . MPV (test code = 10.2 fL 9.8-13 74082-3) RDW-CV (test code = 15.4 % 12.1-15.4 788-0) RDW-SD (test code = 51.6 fL 38.5-51.6 95804-0) NRBC x10^3 (test code = See_Comment [Au tomated message] 2855124254) The system [employer] generated this result transmit gilberto reference range : 10*3/?L. The reference range was not used to interpret this result as normal/abnormal . NRBC/100 WBC (test code See_Comment [Au tomated message] = 2662903639) The system [employer] generated this result transmit gilberto reference range : 0.0 - 10.0 /100 WBC s. The reference r lisa was not used to interpret this result as normal/abnormal . IPF % (test code = 3676237872) Lab Interpretation (test Abnormal code = 11184-4) [facility] Packed RBC (in units)2022-02-28 05:15:05 Test Item Value Reference Range Interpretation Comments Unit Blood Type (test O Pos code = 4410) ISBT Blood Type Code (test code = 709237) Unit Number (test [id number] code = 4411) Blood Expiration Date & Time (test code = 063798) Status Information Issued (test code = 4412) Product Red Blood Cells Identification (test code = 4413) Product Code (test [id number] Performed at [facility] code = 4414) Laboratory Services - [facility] Blood [address] [place] [address]99[address]Ucle Free: [phone] A No. [id number] Cross Match Result Compatible (test code = 4409) [facility]2022-02-25 11:22:22 Test Item Value Reference Range Interpretation Comments POCT GLU (test code = 6500777999) 99 mg/dL 70-110 Lab Interpretation (test code = Normal 51073-3) [facility] WITHOUT [id number] 09:51:29 Test Item Value Reference Range Interpretation Comments WBC (test code = 6690-2) See_Comment [A utomated message] The system [employer] generated this result transmit gilberto reference range : 4.20 - 10.70 10*3/?L. The reference range was not used to interpret this result as normal/abnormal . RBC (test code = 789-8) See_Comment L [Au tomated message] The system [employer] generated this result transmit gilberto reference range : 4.26 - 5.52 10* 6/?L. The reference r lisa was not used to interpret this result as normal/abnormal . HGB (test code = 718-7) 7.2 g/dL 12.2-16.4 L HCT (test code = 4544-3) 22.7 % 38.4-49.3 L MCH (test code = 785-6) 30.0 pg 26.1-32.7 MCV (test code = 787-2) 94.6 fL 81.7-95.6 MCHC (test code = 786-4) 31.7 g/dL 31.2-35 PLT (test code = 777-3) See_Comment [Au tomated message] The system [employer] generated this result transmit gilberto reference range : 150 - 328 10*3/?L. The reference range was not used to interpret this result as normal/abnormal . MPV (test code = 10.4 fL 9.8-13 48078-4) RDW-CV (test code = 15.4 % 12.1-15.4 788-0) RDW-SD (test code = 53.1 fL 38.5-51.6 H 91349-5) NRBC x10^3 (test code = See_Comment [Au tomated message] 8040382996) The system [employer] generated this result transmit gilberto reference range : 10*3/?L. The reference range was not used to interpret this result as normal/abnormal . NRBC/100 WBC (test code See_Comment [Au tomated message] = 9159960324) The system [facility] generated this result transmit gilberto reference range : 0.0 - 10.0 /100 WBC s. The reference r lisa was not used to interpret this result as normal/abnormal . IPF % (test code = 9810520995) Lab Interpretation (test Abnormal code = 86961-8) [facility] Packed RBC (in units), 1 Units 2022-02-25 05:40:24 Test Item Value Reference Range Interpretation Comments Unit Blood Type (test O Pos code = 4410) ISBT Blood Type Code (test code = 577824) Unit Number (test [id number] code = 4411) Blood Expiration Date & Time (test code = 523261) Status Information Issued (test code = 4412) Product Red Blood Cells Identification (test code = 4413) Product Code (test K6044C73 Performed at [facility] code = 4414) Laboratory Services - [facility] Blood [address] [place], [place] [address]Snmz Free: [phone] A No. [id number] Cross Match Result Compatible (test code = 4409) [facility] GLU[facility] (AUTOMATED)2022-02-25 04:46:02 Test Item Value Reference Range Interpretation Comments POCT GLU (test code = 9443487366) 117 mg/dL 70-110 H Lab Interpretation (test code = Abnormal 78482-6) [facility] AreaPANEL [id number] 02:55:10 Test Item Value Reference Range Interpretation Comments ANTIBODY ID (test code Anti-Fya Perfo rmed at [facility] = 245) Laboratory Serv [facility] Blood Bank[address] [facility] [address]Ihff Free: [phone] A No. [id number] [facility] WITHOUT [id number] 01:12:01 Test Item Value Reference Range Interpretation Comments WBC (test code = 6690-2) See_Comment [A utomated message] The system [employer] generated this result transmit gilberto reference range : 4.20 - 10.70 10*3/?L. The reference range was not used to interpret this result as normal/abnormal . RBC (test code = 789-8) See_Comment L [Au tomated message] The system [employer] generated this result transmit gilberto reference range : 4.26 - 5.52 10* 6/?L. The reference r lisa was not used to interpret this result as normal/abnormal . HGB (test code = 718-7) 6.7 g/dL 12.2-16.4 L HCT (test code = 4544-3) 21.0 % 38.4-49.3 L MCH (test code = 785-6) 30.6 pg 26.1-32.7 MCV (test code = 787-2) 95.9 fL 81.7-95.6 H MCHC (test code = 786-4) 31.9 g/dL 31.2-35 PLT (test code = 777-3) See_Comment [Au tomated message] The system [facility] generated this result transmit gilberto reference range : 150 - 328 10*3/?L. The reference range was not used to interpret this result as normal/abnormal . MPV (test code = 10.9 fL 9.8-13 42625-6) RDW-CV (test code = 15.5 % 12.1-15.4 H 788-0) RDW-SD (test code = 53.7 fL 38.5-51.6 H 24437-5) NRBC x10^3 (test code = See_Comment [Au tomated message] 6287769753) The system [employer] generated this result transmit gilberto reference range : 10*3/?L. The reference range was not used to interpret this result as normal/abnormal . NRBC/100 WBC (test code See_Comment [Au tomated message] = 3031861265) The system [facility] generated this result transmit gilberto reference range : 0.0 - 10.0 /100 WBC s. The reference r lisa was not used to interpret this result as normal/abnormal . IPF % (test code = 2569820329) Lab Interpretation (test Abnormal code = 56033-5) [facility] and Screen - ONCE [id number] 19:46:27 Test Item Value Reference Range Interpretation Comments ABO & RH (test code O Positive Performe d at [facility] = 20) Laboratory Serv [facility] Blood [address] [place] [address]Ugyv Free: [phone] A No. [id number] IAT (test code = Positive Performed a t [facility] 1185) Laboratory Serv [facility] Blood [address] [place] [address]Ibfd Free: [phone] A No. [id number] [facility] WITHOUT [id number] 19:00:21 Test Item Value Reference Range Interpretation Comments WBC (test code = 6690-2) See_Comment [A utomated message] The system [employer] generated this result transmit gilberto reference range : 4.20 - 10.70 10*3/?L. The reference range was not used to interpret this result as normal/abnormal . RBC (test code = 789-8) See_Comment L [Au tomated message] The system [employer] generated this result transmit gilberto reference range : 4.26 - 5.52 10* 6/?L. The reference r lisa was not used to interpret this result as normal/abnormal . HGB (test code = 718-7) 7.2 g/dL 12.2-16.4 L HCT (test code = 4544-3) 22.8 % 38.4-49.3 L MCH (test code = 785-6) 29.5 pg 26.1-32.7 MCV (test code = 787-2) 93.4 fL 81.7-95.6 MCHC (test code = 786-4) 31.6 g/dL 31.2-35 PLT (test code = 777-3) See_Comment [Au tomated message] The system [employer] generated this result transmit gilberto reference range : 150 - 328 10*3/?L. The reference range was not used to interpret this result as normal/abnormal . MPV (test code = 10.8 fL 9.8-13 43322-1) RDW-CV (test code = 15.5 % 12.1-15.4 H 788-0) RDW-SD (test code = 52.6 fL 38.5-51.6 H 68570-8) NRBC x10^3 (test code = See_Comment [Au tomated message] 8666169639) The system [employer] generated this result transmit gilberto reference range : 10*3/?L. The reference range was not used to interpret this result as normal/abnormal . NRBC/100 WBC (test code See_Comment [Au tomated message] = 9190137435) The system [employer] generated this result transmit gilberto reference range : 0.0 - 10.0 /100 WBC s. The reference r lisa was not used to interpret this result as normal/abnormal . IPF % (test code = 9586629596) Lab Interpretation (test Abnormal code = 27511-8) [facility]. METABOLIC PANEL ([id number])2022-02-24 09:05:13 Test Item Value Reference Range Interpretation Comments NA (test code = 137 mmol/L 135-145 [id number]) K (test code = 4.4 mmol/L 3.5-5 [id number]) CL (test code = 113 mmol/L 98-108 H [id number]) CO2 TOTAL (test code = 24 mmol/L 23-31 [id number]) AGAP (test code = 2-16 L [id number]) BUN (test code = 32 mg/dL 7-23 H [id number]) GLUCOSE (test code = 81 mg/dL 70-110 7176903479) CREATININE (test code = 0.90 mg/dL 0.6-1.25 0116099472) TOTAL BILI (test code = 0.4 mg/dL 0.1-1.7 3747903146) CALCIUM (test code = 7.5 mg/dL 8.6-10.6 L 7672484691) T PROTEIN (test code = 3.9 g/dL 6.3-8.2 L 2924685805) ALBUMIN (test code = 1.9 g/dL 3.5-5 L 3842890536) ALK PHOS (test code = 69 U/L 34-122 6638221983) ALTv (test code = 19 U/L 5-50 1742-6) AST(SGOT) (test code = 28 U/L 13-40 7415507636) eGFR (test code = mL/min/1.73m2 9998218987) ADILENE (test code = ADILENE) Association of Glomerular Filtration Rate (GFR) and Staging of Kidney Disease* + --+ --+ ------+| GFR (mL/min/1.73 m2) ?| With Kidney Damage ?| ?Without Kidney Damage+ --------+ --------+ +| ?>90 ?| ?Stage one ?| ? Normal ?+ ---+ ---+ -------+| ?60-89 ?| ?Stage two ?| ? Decreased GFR ? + --+ --+ ------+| ?30-59 ?| ?Stage three ?| ? Stage three ? + --+ --+ ------+| ?15-29 ?| ?Stage four ? | ? Stage four ?+ ---+ ---+ -------+| ?<15 (or dialysis) ? ?| ?Stage five ? | ? Stage five ?+ ---+ ---+ -------+ *Each stage assumes the associated GFR level has been in effect for at least three months. ?Stages 1 to 5, with or without kidney disease, indicate chronic kidney disease. Notes: Determination of stages one and two (with eGFR >59mL/min/1.73 m2) requires estimation of kidney damage for at least three months as defined by structural or functional abnormalities of the kidney, manifested by either:Pathological abnormalities or Markers of kidney damage (including abnormalities in the composition of the blood or urine or abnormalities in imaging tests). Lab Interpretation Abnormal (test code = 35671-5) [facility] WITHOUT [id number] 08:19:31 Test Item Value Reference Range Interpretation Comments WBC (test code = 6690-2) See_Comment [A utomated message] The system [employer] generated this result transmit gilberto reference range : 4.20 - 10.70 10*3/?L. The reference range was not used to interpret this result as normal/abnormal . RBC (test code = 789-8) See_Comment L [Au tomated message] The system [employer] generated this result transmit gilberto reference range : 4.26 - 5.52 10* 6/?L. The reference r lisa was not used to interpret this result as normal/abnormal . HGB (test code = 718-7) 7.6 g/dL 12.2-16.4 L HCT (test code = 4544-3) 23.7 % 38.4-49.3 L MCH (test code = 785-6) 29.6 pg 26.1-32.7 MCV (test code = 787-2) 92.2 fL 81.7-95.6 MCHC (test code = 786-4) 32.1 g/dL 31.2-35 PLT (test code = 777-3) See_Comment [Au tomated message] The system [employer] generated this result transmit gilberto reference range : 150 - 328 10*3/?L. The reference range was not used to interpret this result as normal/abnormal . MPV (test code = 11.0 fL 9.8-13 09628-1) RDW-CV (test code = 15.5 % 12.1-15.4 H 788-0) RDW-SD (test code = 52.0 fL 38.5-51.6 H 13678-6) NRBC x10^3 (test code = See_Comment [Au tomated message] 0877676800) The system [employer] generated this result transmit gilberto reference range : 10*3/?L. The reference range was not used to interpret this result as normal/abnormal . NRBC/100 WBC (test code See_Comment [Au tomated message] = 4232154929) The system [employer] generated this result transmit gilberto reference range : 0.0 - 10.0 /100 WBC s. The reference r lisa was not used to interpret this result as normal/abnormal . IPF % (test code = 8095732296) Lab Interpretation (test Abnormal code = 37010-9) [facility]. METABOLIC PANEL ([id number])2022-02-23 09:33:59 Test Item Value Reference Range Interpretation Comments NA (test code = 136 mmol/L 135-145 7620369978) K (test code = 4.4 mmol/L 3.5-5 2631188674) CL (test code = 114 mmol/L 98-108 H 9780731569) CO2 TOTAL (test code = 21 mmol/L 23-31 L 3547223313) AGAP (test code = 2-16 L 0782970210) BUN (test code = 35 mg/dL 7-23 H 9498240752) GLUCOSE (test code = 115 mg/dL 70-110 H 4852593335) CREATININE (test code = 0.92 mg/dL 0.6-1.25 3646422026) TOTAL BILI (test code = 0.3 mg/dL 0.1-1.8 8914434222) CALCIUM (test code = 7.5 mg/dL 8.6-10.6 L 9887023376) T PROTEIN (test code = 3.9 g/dL 6.3-8.2 L 0143832864) ALBUMIN (test code = 1.9 g/dL 3.5-5 L 9807287283) ALK PHOS (test code = 85 U/L 34-122 1443310747) ALTv (test code = 21 U/L 5-50 1742-6) AST(SGOT) (test code = 53 U/L 13-40 H 4131556961) eGFR (test code = mL/min/1.73m2 7934369689) ADILENE (test code = ADILENE) Association of Glomerular Filtration Rate (GFR) and Staging of Kidney Disease* + --+ --+ ------+| GFR (mL/min/1.73 m2) ?| With Kidney Damage ?| ?Without Kidney Damage+ --------+ --------+ +| ?>90 ?| ?Stage one ?| ? Normal ?+ ---+ ---+ -------+| ?60-89 ?| ?Stage two ?| ? Decreased GFR ? + --+ --+ ------+| ?30-59 ?| ?Stage three ?| ? Stage three ? + --+ --+ ------+| ?15-29 ?| ?Stage four ? | ? Stage four ?+ ---+ ---+ -------+| ?<15 (or dialysis) ? ?| ?Stage five ? | ? Stage five ?+ ---+ ---+ -------+ *Each stage assumes the associated GFR level has been in effect for at least three months. ?Stages 1 to 5, with or without kidney disease, indicate chronic kidney disease. Notes: Determination of stages one and two (with eGFR >59mL/min/1.73 m2) requires estimation of kidney damage for at least three months as defined by structural or functional abnormalities of the kidney, manifested by either:Pathological abnormalities or Markers of kidney damage (including abnormalities in the composition of the blood or urine or abnormalities in imaging tests). Lab Interpretation Abnormal (test code = 44407-6) [facility] WITHOUT [id number] 09:12:16 Test Item Value Reference Range Interpretation Comments WBC (test code = 6690-2) See_Comment [A utomated message] The system [employer] generated this result transmit gilberto reference range : 4.20 - 10.70 10*3/?L. The reference range was not used to interpret this result as normal/abnormal . RBC (test code = 789-8) See_Comment L [Au tomated message] The system [employer] generated this result transmit gilberto reference range : 4.26 - 5.52 10* 6/?L. The reference r lisa was not used to interpret this result as normal/abnormal . HGB (test code = 718-7) 8.0 g/dL 12.2-16.4 L HCT (test code = 4544-3) 25.1 % 38.4-49.3 L MCH (test code = 785-6) 30.0 pg 26.1-32.7 MCV (test code = 787-2) 94.0 fL 81.7-95.6 MCHC (test code = 786-4) 31.9 g/dL 31.2-35 PLT (test code = 777-3) See_Comment [Au tomated message] The system [employer] generated this result transmit gilberto reference range : 150 - 328 10*3/?L. The reference range was not used to interpret this result as normal/abnormal . MPV (test code = 11.3 fL 9.8-13 01823-6) RDW-CV (test code = 15.8 % 12.1-15.4 H 788-0) RDW-SD (test code = 54.4 fL 38.5-51.6 H 30989-8) NRBC x10^3 (test code = See_Comment [Au tomated message] 1391843956) The system [employer] generated this result transmit gilberto reference range : 10*3/?L. The reference range was not used to interpret this result as normal/abnormal . NRBC/100 WBC (test code See_Comment [Au tomated message] = 6005431046) The system [facility] generated this result transmit gilberto reference range : 0.0 - 10.0 /100 WBC s. The reference r lisa was not used to interpret this result as normal/abnormal . IPF % (test code = 6634916750) Lab Interpretation (test Abnormal code = 97554-3) [facility]2022-02-23 05:15:06 Test Item Value Reference Range Interpretation Comments Unit Blood Type (test O Pos code = 4410) ISBT Blood Type Code (test code = 384337) Unit Number (test [id number] code = 4411) Blood Expiration Date & Time (test code = 935923) Status Information Released (test code = 4412) Product Red Blood Cells Identification (test code = 4413) Product Code (test [id number] Performed at [facility] code = 4414) Laboratory Services - [facility] Blood [address] [place] [address]Vzyp Free: [phone] A No. [id number] Cross Match Result Compatible (test code = 4409) [facility]2022-[facility]-07 15:28:34 Test Item Value Reference Range Interpretation Comments MAGNESIUM (test code = 6333005449) 2.3 mg/dL 1.7-2.4 Lab Interpretation (test code = Normal 72293-3) [facility] METABOLIC PANEL ([id number])2022-02-22 09:07:47 Test Item Value Reference Range Interpretation Comments NA (test code = 139 mmol/L 135-145 9210574281) K (test code = 3.4 mmol/L 3.5-5 L 0482964182) CL (test code = 112 mmol/L 98-108 H 8362658497) CO2 TOTAL (test code = 23 mmol/L 23-31 1427087511) AGAP (test code = 2-16 9981086886) BUN (test code = 34 mg/dL 7-23 H 0034564540) GLUCOSE (test code = 118 mg/dL 70-110 H 7576427740) CREATININE (test code = 1.02 mg/dL 0.6-1.25 1397445135) TOTAL BILI (test code = 0.3 mg/dL 0.1-1.2 8280233688) CALCIUM (test code = 7.5 mg/dL 8.6-10.6 L 3041439752) T PROTEIN (test code = 4.1 g/dL 6.3-8.2 L 9134645537) ALBUMIN (test code = 2.0 g/dL 3.5-5 L 8039250120) ALK PHOS (test code = 85 U/L 34-122 6774871878) ALTv (test code = 24 U/L 5-50 1742-6) AST(SGOT) (test code = 31 U/L 13-40 8193177998) eGFR (test code = mL/min/1.73m2 9454859404) ADILENE (test code = ADILENE) Association of Glomerular Filtration Rate (GFR) and Staging of Kidney Disease* + --+ --+ ------+| GFR (mL/min/1.73 m2) ?| With Kidney Damage ?| ?Without Kidney Damage+ --------+ --------+ +| ?>90 ?| ?Stage one ?| ? Normal ?+ ---+ ---+ -------+| ?60-89 ?| ?Stage two ?| ? Decreased GFR ? + --+ --+ ------+| ?30-59 ?| ?Stage three ?| ? Stage three ? + --+ --+ ------+| ?15-29 ?| ?Stage four ? | ? Stage four ?+ ---+ ---+ -------+| ?<15 (or dialysis) ? ?| ?Stage five ? | ? Stage five ?+ ---+ ---+ -------+ *Each stage assumes the associated GFR level has been in effect for at least three months. ?Stages 1 to 5, with or without kidney disease, indicate chronic kidney disease. Notes: Determination of stages one and two (with eGFR >59mL/min/1.73 m2) requires estimation of kidney damage for at least three months as defined by structural or functional abnormalities of the kidney, manifested by either:Pathological abnormalities or Markers of kidney damage (including abnormalities in the composition of the blood or urine or abnormalities in imaging tests). Lab Interpretation Abnormal (test code = 57399-9) [facility] WITHOUT [id number] 08:50:48 Test Item Value Reference Range Interpretation Comments WBC (test code = 6690-2) See_Comment [A utomated message] The system [employer] generated this result transmit gilberto reference range : 4.20 - 10.70 10*3/?L. The reference range was not used to interpret this result as normal/abnormal . RBC (test code = 789-8) See_Comment L [Au tomated message] The system [facility] generated this result transmit gilberto reference range : 4.26 - 5.52 10* 6/?L. The reference r lisa was not used to interpret this result as normal/abnormal . HGB (test code = 718-7) 9.0 g/dL 12.2-16.4 L HCT (test code = 4544-3) 27.8 % 38.4-49.3 L MCH (test code = 785-6) 30.0 pg 26.1-32.7 MCV (test code = 787-2) 92.7 fL 81.7-95.6 MCHC (test code = 786-4) 32.4 g/dL 31.2-35 PLT (test code = 777-3) See_Comment [Au tomated message] The system [facility] generated this result transmit gilberto reference range : 150 - 328 10*3/?L. The reference range was not used to interpret this result as normal/abnormal . MPV (test code = 11.4 fL 9.8-13 80437-2) RDW-CV (test code = 16.0 % 12.1-15.4 H 788-0) RDW-SD (test code = 54.7 fL 38.5-51.6 H 21203-3) NRBC x10^3 (test code = See_Comment [Au tomated message] 4785663657) The system [facility] generated this result transmit gilberto reference range : 10*3/?L. The reference range was not used to interpret this result as normal/abnormal . NRBC/100 WBC (test code See_Comment [Au tomated message] = 3901263686) The system [facility] generated this result transmit gilberto reference range : 0.0 - 10.0 /100 WBC s. The reference r lisa was not used to interpret this result as normal/abnormal . IPF % (test code = 8023037141) Lab Interpretation (test Abnormal code = 60065-8) [facility]. METABOLIC PANEL ([id number])2022-02-21 10:00:35 Test Item Value Reference Range Interpretation Comments NA (test code = 142 mmol/L 135-145 8665178852) K (test code = 3.2 mmol/L 3.5-5 L 3449502101) CL (test code = 114 mmol/L 98-108 H 5184657746) CO2 TOTAL (test code = 29 mmol/L 23-31 5699287454) AGAP (test code = 2-16 L 8796672678) BUN (test code = 40 mg/dL 7-23 H 3818670405) GLUCOSE (test code = 100 mg/dL 70-110 9266221217) CREATININE (test code = 1.01 mg/dL 0.6-1.25 7252297685) TOTAL BILI (test code = 0.5 mg/dL 0.1-1.6 8173323924) CALCIUM (test code = 7.8 mg/dL 8.6-10.6 L 9150273727) T PROTEIN (test code = 4.0 g/dL 6.3-8.2 L 2574892571) ALBUMIN (test code = 2.0 g/dL 3.5-5 L 7266967441) ALK PHOS (test code = 62 U/L 34-122 1230166313) ALTv (test code = 18 U/L 5-50 1742-6) AST(SGOT) (test code = 27 U/L 13-40 5023369224) eGFR (test code = mL/min/1.73m2 0092466929) ADILENE (test code = ADILENE) Association of Glomerular Filtration Rate (GFR) and Staging of Kidney Disease* + --+ --+ ------+| GFR (mL/min/1.73 m2) ?| With Kidney Damage ?| ?Without Kidney Damage+ --------+ --------+ +| ?>90 ?| ?Stage one ?| ? Normal ?+ ---+ ---+ -------+| ?60-89 ?| ?Stage two ?| ? Decreased GFR ? + --+ --+ ------+| ?30-59 ?| ?Stage three ?| ? Stage three ? + --+ --+ ------+| ?15-29 ?| ?Stage four ? | ? Stage four ?+ ---+ ---+ -------+| ?<15 (or dialysis) ? ?| ?Stage five ? | ? Stage five ?+ ---+ ---+ -------+ *Each stage assumes the associated GFR level has been in effect for at least three months. ?Stages 1 to 5, with or without kidney disease, indicate chronic kidney disease. Notes: Determination of stages one and two (with eGFR >59mL/min/1.73 m2) requires estimation of kidney damage for at least three months as defined by structural or functional abnormalities of the kidney, manifested by either:Pathological abnormalities or Markers of kidney damage (including abnormalities in the composition of the blood or urine or abnormalities in imaging tests). Lab Interpretation Abnormal (test code = 42952-9) [facility] 09:42:12 Test Item Value Reference Range Interpretation Comments MAGNESIUM (test code = 5125363284) 2.4 mg/dL 1.7-2.4 Lab Interpretation (test code = Normal 60206-8) [facility]2022-07-06 09:42:12 Test Item Value Reference Range Interpretation Comments PHOSPHORUS (test code = 1834690998) 3.5 mg/dL 2.5-5 Lab Interpretation (test code = Normal 83484-2) [facility] WITHOUT [id number] 09:25:49 Test Item Value Reference Range Interpretation Comments WBC (test code = 6690-2) See_Comment [A utomated message] The system [employer] generated this result transmit gilberto reference range : 4.20 - 10.70 10*3/?L. The reference range was not used to interpret this result as normal/abnormal . RBC (test code = 789-8) See_Comment L [Au tomated message] The system [employer] generated this result transmit gilberto reference range : 4.26 - 5.52 10* 6/?L. The reference r lisa was not used to interpret this result as normal/abnormal . HGB (test code = 718-7) 7.4 g/dL 12.2-16.4 L HCT (test code = 4544-3) 24.4 % 38.4-49.3 L MCH (test code = 785-6) 29.4 pg 26.1-32.7 MCV (test code = 787-2) 96.8 fL 81.7-95.6 H MCHC (test code = 786-4) 30.3 g/dL 31.2-35 L PLT (test code = 777-3) See_Comment [Au tomated message] The system [facility] generated this result transmit gilberto reference range : 150 - 328 10*3/?L. The reference range was not used to interpret this result as normal/abnormal . MPV (test code = 11.3 fL 9.8-13 90186-7) RDW-CV (test code = 15.9 % 12.1-15.4 H 788-0) RDW-SD (test code = 56.2 fL 38.5-51.6 H 54004-3) NRBC x10^3 (test code = See_Comment [Au tomated message] 5587826157) The system [facility] generated this result transmit gilberto reference range : 10*3/?L. The reference range was not used to interpret this result as normal/abnormal . NRBC/100 WBC (test code See_Comment [Au tomated message] = 9597924957) The system [facility] generated this result transmit gilberto reference range : 0.0 - 10.0 /100 WBC s. The reference r lisa was not used to interpret this result as normal/abnormal . IPF % (test code = 2413098254) Lab Interpretation (test Abnormal code = 74005-2) [facility] WITHOUT [id number] 09:25:49 Test Item Value Reference Range Interpretation Comments WBC (test code = 6690-2) See_Comment [A utomated message] The system [facility] generated this result transmit gilberto reference range : 4.20 - 10.70 10*3/?L. The reference range was not used to interpret this result as normal/abnormal . RBC (test code = 789-8) See_Comment L [Au tomated message] The system [facility] generated this result transmit gilberto reference range : 4.26 - 5.52 10* 6/?L. The reference r lisa was not used to interpret this result as normal/abnormal . HGB (test code = 718-7) 7.5 g/dL 12.2-16.4 L HCT (test code = 4544-3) 23.7 % 38.4-49.3 L MCH (test code = 785-6) 30.2 pg 26.1-32.7 MCV (test code = 787-2) 95.6 fL 81.7-95.6 MCHC (test code = 786-4) 31.6 g/dL 31.2-35 PLT (test code = 777-3) See_Comment [Au tomated message] The system [facility] generated this result transmit gilberto reference range : 150 - 328 10*3/?L. The reference range was not used to interpret this result as normal/abnormal . MPV (test code = 11.8 fL 9.8-13 40424-7) RDW-CV (test code = 16.0 % 12.1-15.4 H 788-0) RDW-SD (test code = 56.3 fL 38.5-51.6 H 68601-2) NRBC x10^3 (test code = See_Comment [Au tomated message] 3886525099) The system [facility] generated this result transmit gilberto reference range : 10*3/?L. The reference range was not used to interpret this result as normal/abnormal . NRBC/100 WBC (test code See_Comment [Au tomated message] = 1628909266) The system [facility] generated this result transmit gilberto reference range : 0.0 - 10.0 /100 WBC s. The reference r lisa was not used to interpret this result as normal/abnormal . IPF % (test code = 8679393163) Lab Interpretation (test Abnormal code = 72885-7) [facility] WITHOUT [id number] 22:41:52 Test Item Value Reference Range Interpretation Comments WBC (test code = 6690-2) See_Comment H [A utomated message] The system [facility] generated this result transmit gilberto reference range : 4.20 - 10.70 10*3/?L. The reference range was not used to interpret this result as normal/abnormal . RBC (test code = 789-8) See_Comment L [Au tomated message] The system [facility] generated this result transmit gilberto reference range : 4.26 - 5.52 10* 6/?L. The reference r lisa was not used to interpret this result as normal/abnormal . HGB (test code = 718-7) 8.0 g/dL 12.2-16.4 L HCT (test code = 4544-3) 25.9 % 38.4-49.3 L MCH (test code = 785-6) 29.9 pg 26.1-32.7 MCV (test code = 787-2) 96.6 fL 81.7-95.6 H MCHC (test code = 786-4) 30.9 g/dL 31.2-35 L PLT (test code = 777-3) See_Comment [Au tomated message] The system [employer] generated this result transmit gilberto reference range : 150 - 328 10*3/?L. The reference range was not used to interpret this result as normal/abnormal . MPV (test code = 11.5 fL 9.8-13 70134-4) RDW-CV (test code = 16.2 % 12.1-15.4 H 788-0) RDW-SD (test code = 57.1 fL 38.5-51.6 H 05278-3) NRBC x10^3 (test code = See_Comment [Au tomated message] 5769791947) The system [employer] generated this result transmit gilberto reference range : 10*3/?L. The reference range was not used to interpret this result as normal/abnormal . NRBC/100 WBC (test code See_Comment [Au tomated message] = 5313085330) The system [facility] generated this result transmit gilberto reference range : 0.0 - 10.0 /100 WBC s. The reference r lisa was not used to interpret this result as normal/abnormal . IPF % (test code = 2554951093) Lab Interpretation (test Abnormal code = 10933-8) [facility] [id number] 19:21:47 Test Item Value Reference Range Interpretation Comments NT-proBNP (test code 06196 pg/mL See_Comment H [Autom ated = 3470941464) message] The system which generated this result transmitted reference range : <=450. The reference range was not used to interpret this result as normal/abnormal . ADILENE (test code = ADILENE) Biotin has been reported to cause a negative bias, interpret results relative to patient's use of biotin. Lab Interpretation Abnormal (test code = 15039-8) [facility] Area[facility]MOLALITY, SERUM OR [id number] 17:33:31 Test Item Value Reference Range Interpretation Comments OSMOLALITY (test code = See_Comment H [Au tomated message] 2692-2) The system [employer] generated this result transmitted ref erence range: 278 - 30 5 mOsm/kg. The reference range was not used to int erpret this result as normal/abnormal . Lab Interpretation (test Abnormal code = 77333-6) [facility] WITHOUT [id number] 16:15:21 Test Item Value Reference Range Interpretation Comments WBC (test code = 6690-2) See_Comment H [A utomated message] The system [employer] generated this result transmit gilberto reference range : 4.20 - 10.70 10*3/?L. The reference range was not used to interpret this result as normal/abnormal . RBC (test code = 789-8) See_Comment L [Au tomated message] The system [employer] generated this result transmit gilberto reference range : 4.26 - 5.52 10* 6/?L. The reference r lisa was not used to interpret this result as normal/abnormal . HGB (test code = 718-7) 8.4 g/dL 12.2-16.4 L HCT (test code = 4544-3) 27.7 % 38.4-49.3 L MCH (test code = 785-6) 29.9 pg 26.1-32.7 MCV (test code = 787-2) 98.6 fL 81.7-95.6 H MCHC (test code = 786-4) 30.3 g/dL 31.2-35 L PLT (test code = 777-3) See_Comment [Au tomated message] The system [employer] generated this result transmit gilberto reference range : 150 - 328 10*3/?L. The reference range was not used to interpret this result as normal/abnormal . MPV (test code = 11.9 fL 9.8-13 85463-2) RDW-CV (test code = 16.0 % 12.1-15.4 H 788-0) RDW-SD (test code = 57.5 fL 38.5-51.6 H 57042-1) NRBC x10^3 (test code = See_Comment [Au tomated message] 9759710207) The system [employer] generated this result transmit gilberto reference range : 10*3/?L. The reference range was not used to interpret this result as normal/abnormal . NRBC/100 WBC (test code See_Comment [Au tomated message] = 3193175150) The system [employer] generated this result transmit gilberto reference range : 0.0 - 10.0 /100 WBC s. The reference r lisa was not used to interpret this result as normal/abnormal . IPF % (test code = 8486903167) Lab Interpretation (test Abnormal code = 91000-5) [facility] [id number] 13:13:45 Test Item Value Reference Range Interpretation Comments ANTIBODY ID (test code Anti-Fya Perfo rmed at [facility] = 245) Laboratory Serv [facility] Blood [address] [address]Tzdb Free: [phone] A No. [id number] [facility]. METABOLIC PANEL ([id number])2022-02-20 09:25:21 Test Item Value Reference Range Interpretation Comments NA (test code = 148 mmol/L 135-145 H 5280640742) K (test code = 3.8 mmol/L 3.5-5 7427531787) CL (test code = 120 mmol/L 98-108 H 3313701573) CO2 TOTAL (test code = 28 mmol/L 23-31 0612265412) AGAP (test code = 2-16 L 4914961704) BUN (test code = 45 mg/dL 7-23 H 2256735469) GLUCOSE (test code = 104 mg/dL 70-110 2080837271) CREATININE (test code = 0.99 mg/dL 0.6-1.25 1619150721) TOTAL BILI (test code = 0.6 mg/dL 0.1-1.9 7667737778) CALCIUM (test code = 8.3 mg/dL 8.6-10.6 L 1895651438) T PROTEIN (test code = 4.2 g/dL 6.3-8.2 L 8720296837) ALBUMIN (test code = 2.2 g/dL 3.5-5 L 1420712208) ALK PHOS (test code = 79 U/L 34-122 5774076219) ALTv (test code = 21 U/L 5-50 1742-6) AST(SGOT) (test code = 31 U/L 13-40 9731602827) eGFR (test code = mL/min/1.73m2 5120127117) ADILENE (test code = ADILENE) Association of Glomerular Filtration Rate (GFR) and Staging of Kidney Disease* + --+ --+ ------+| GFR (mL/min/1.73 m2) ?| With Kidney Damage ?| ?Without Kidney Damage+ --------+ --------+ +| ?>90 ?| ?Stage one ?| ? Normal ?+ ---+ ---+ -------+| ?60-89 ?| ?Stage two ?| ? Decreased GFR ? + --+ --+ ------+| ?30-59 ?| ?Stage three ?| ? Stage three ? + --+ --+ ------+| ?15-29 ?| ?Stage four ? | ? Stage four ?+ ---+ ---+ -------+| ?<15 (or dialysis) ? ?| ?Stage five ? | ? Stage five ?+ ---+ ---+ -------+ *Each stage assumes the associated GFR level has been in effect for at least three months. ?Stages 1 to 5, with or without kidney disease, indicate chronic kidney disease. Notes: Determination of stages one and two (with eGFR >59mL/min/1.73 m2) requires estimation of kidney damage for at least three months as defined by structural or functional abnormalities of the kidney, manifested by either:Pathological abnormalities or Markers of kidney damage (including abnormalities in the composition of the blood or urine or abnormalities in imaging tests). Lab Interpretation Abnormal (test code = 04285-7) [facility] WITHOUT [id number] 08:56:22 Test Item Value Reference Range Interpretation Comments WBC (test code = 6690-2) See_Comment [A utomated message] The system Visuu generated this result transmit gilberto reference range : 4.20 - 10.70 10*3/?L. The reference range was not used to interpret this result as normal/abnormal . RBC (test code = 789-8) See_Comment L [Au tomated message] The system Visuu generated this result transmit gilberto reference range : 4.26 - 5.52 10* 6/?L. The reference r lisa was not used to interpret this result as normal/abnormal . HGB (test code = 718-7) 8.4 g/dL 12.2-16.4 L HCT (test code = 4544-3) 26.8 % 38.4-49.3 L MCH (test code = 785-6) 30.0 pg 26.1-32.7 MCV (test code = 787-2) 95.7 fL 81.7-95.6 H MCHC (test code = 786-4) 31.3 g/dL 31.2-35 PLT (test code = 777-3) See_Comment [Au tomated message] The system [employer] generated this result transmit gilberto reference range : 150 - 328 10*3/?L. The reference range was not used to interpret this result as normal/abnormal . MPV (test code = 11.2 fL 9.8-13 91770-1) RDW-CV (test code = 16.0 % 12.1-15.4 H 788-0) RDW-SD (test code = 57.3 fL 38.5-51.6 H 67397-9) NRBC x10^3 (test code = See_Comment [Au tomated message] [id number]) The system Visuu generated this result transmit gilberto reference range : 10*3/?L. The reference range was not used to interpret this result as normal/abnormal . NRBC/100 WBC (test code See_Comment [Au tomated message] = 3145167354) The system [facility] generated this result transmit gilberto reference range : 0.0 - 10.0 /100 WBC s. The reference r lisa was not used to interpret this result as normal/abnormal . IPF % (test code = 8860033958) Lab Interpretation (test Abnormal code = 12828-6) [facility] ONCE [id number] 05:43:23 Test Item Value Reference Range Interpretation Comments ABO & RH (test code O Positive Performe d at [facility] = 20) Laboratory [facility] [address] [place] [address] [id number] Free: [phone] A No. [id number] IAT (test code = Positive Performed a t [facility] 1185) Laboratory [facility] [address] [place] [address] [id number] Free: [phone] A No. [id number] [facility] WITH [id number] 16:36:18 Test Item Value Reference Range Interpretation Comments WBC (test code = See_Comment [Automated 6690-2) message] The sy stem which generated this result transmitted reference range : 4.20 - 10.70 10*3/?L. The reference range was not used to interpret this result as normal/abnormal . RBC (test code = See_Comment L [Automated 789-8) message] The sy stem which generated this result transmitted reference range : 4.26 - 5.52 10*6/?L. The reference range was not used to interpret this result as normal/abnormal . HGB (test code = 8.6 g/dL 12.2-16.4 L 718-7) HCT (test code = 29.3 % 38.4-49.3 L 4544-3) MCV (test code = 100.3 fL 81.7-95.6 H 787-2) MCH (test code = 29.5 pg 26.1-32.7 785-6) MCHC (test code = 29.4 g/dL 31.2-35 L 786-4) RDW-SD (test code = 59.8 fL 38.5-51.6 H 00084-9) RDW-CV (test code = 16.2 % 12.1-15.4 H 788-0) PLT (test code = See_Comment [Automated 777-3) message] The sy stem which generated this result transmitted reference range : 150 - 328 10*3/ ?L. The reference r lisa was not used to interpret this result as normal/abnormal . MPV (test code = 11.3 fL 9.8-13 12925-6) NRBC/100 WBC (test See_Comment [Automat ed code = 7575461752) message] The system which generated this result transmitted reference range : 0.0 - 10.0 /100 WBCs. The refer ence range was not u sed to interpret th is result as normal/abnormal . NRBC x10^3 (test code See_Comment [Auto mated = 7223980772) message] The s ystem which generated this result transmitted reference range : 10*3/?L. The reference range was not used to interpret this result as normal/abnormal . GRAN MAT (NEUT) % 86.4 % (test code = 770-8) IMM GRAN % (test code 0.60 % = 0100405781) LYMPH % (test code = 6.3 % 736-9) MONO % (test code = 4.7 % 5905-5) EOS % (test code = 1.9 % 713-8) BASO % (test code = 0.1 % 706-2) GRAN MAT x10^3(ANC) 8.72 10*3/uL 1.99-6.95 H (test code = 8543194683) IMM GRAN x10^3 (test 0.06 10*3/uL 0-0.06 code = 0584365741) LYMPH x10^3 (test code 0.63 10*3/uL 1.09-3.23 L = 731-0) MONO x10^3 (test code 0.47 10*3/uL 0.36-1.02 = 742-7) EOS x10^3 (test code = 0.19 10*3/uL 0.06-0.53 711-2) BASO x10^3 (test code 0.01-0.09 = 704-7) Lab Interpretation Abnormal (test code = 78313-2) [facility] METABOLIC PANEL (NA, K, CL, CO2, GLUCOSE, BUN, CREATININE, CA)2022-02-19 16:11:59 Test Item Value Reference Range Interpretation Comments NA (test code = 149 mmol/L 135-145 H 4525011048) K (test code = 3.9 mmol/L 3.5-5 6681856535) CL (test code = 116 mmol/L 98-108 H 9974426417) CO2 TOTAL (test code = 32 mmol/L 23-31 H 4834695993) AGAP (test code = 2-16 L 9639930773) BUN (test code = 49 mg/dL 7-23 H 6649554985) GLUCOSE (test code = 146 mg/dL 70-110 H 2034858913) CREATININE (test code = 1.04 mg/dL 0.6-1.25 1158836668) CALCIUM (test code = 8.3 mg/dL 8.6-10.6 L 4244261846) eGFR (test code = mL/min/1.73m2 0204957919) ADILENE (test code = ADILENE) Association of Glomerular Filtration Rate (GFR) and Staging of Kidney Disease* + --+ --+ ------+| GFR (mL/min/1.73 m2) ?| With Kidney Damage ?| ?Without Kidney Damage+ --------+ --------+ +| ?>90 ?| ?Stage one ?| ? Normal ?+ ---+ ---+ -------+| ?60-89 ?| ?Stage two ?| ? Decreased GFR ? + --+ --+ ------+| ?30-59 ?| ?Stage three ?| ? Stage three ? + --+ --+ ------+| ?15-29 ?| ?Stage four ? | ? Stage four ?+ ---+ ---+ -------+| ?<15 (or dialysis) ? ?| ?Stage five ? | ? Stage five ?+ ---+ ---+ -------+ *Each stage assumes the associated GFR level has been in effect for at least three months. ?Stages 1 to 5, with or without kidney disease, indicate chronic kidney disease. Notes: Determination of stages one and two (with eGFR >59mL/min/1.73 m2) requires estimation of kidney damage for at least three months as defined by structural or functional abnormalities of the kidney, manifested by either:Pathological abnormalities or Markers of kidney damage (including abnormalities in the composition of the blood or urine or abnormalities in imaging tests). Lab Interpretation Abnormal (test code = 54880-1) [facility] METABOLIC PANEL (NA, K, CL, CO2, GLUCOSE, BUN, CREATININE, CA)2022-02-18 08:55:09 Test Item Value Reference Range Interpretation Comments NA (test code = 148 mmol/L 135-145 H 2390386850) K (test code = 3.2 mmol/L 3.5-5 L 1393744295) CL (test code = 116 mmol/L 98-108 H 9992632813) CO2 TOTAL (test code = 30 mmol/L 23-31 0525173305) AGAP (test code = 2-16 8454547367) BUN (test code = 54 mg/dL 7-23 H 0597202240) GLUCOSE (test code = 208 mg/dL 70-110 H 6029364185) CREATININE (test code = 1.05 mg/dL 0.6-1.25 8800283222) CALCIUM (test code = 8.0 mg/dL 8.6-10.6 L 0153743635) eGFR (test code = mL/min/1.73m2 3934052372) ADILENE (test code = ADILENE) Association of Glomerular Filtration Rate (GFR) and Staging of Kidney Disease* + --+ --+ ------+| GFR (mL/min/1.73 m2) ?| With Kidney Damage ?| ?Without Kidney Damage+ --------+ --------+ +| ?>90 ?| ?Stage one ?| ? Normal ?+ ---+ ---+ -------+| ?60-89 ?| ?Stage two ?| ? Decreased GFR ? + --+ --+ ------+| ?30-59 ?| ?Stage three ?| ? Stage three ? + --+ --+ ------+| ?15-29 ?| ?Stage four ? | ? Stage four ?+ ---+ ---+ -------+| ?<15 (or dialysis) ? ?| ?Stage five ? | ? Stage five ?+ ---+ ---+ -------+ *Each stage assumes the associated GFR level has been in effect for at least three months. ?Stages 1 to 5, with or without kidney disease, indicate chronic kidney disease. Notes: Determination of stages one and two (with eGFR >59mL/min/1.73 m2) requires estimation of kidney damage for at least three months as defined by structural or functional abnormalities of the kidney, manifested by either:Pathological abnormalities or Markers of kidney damage (including abnormalities in the composition of the blood or urine or abnormalities in imaging tests). Lab Interpretation Abnormal (test code = 67584-3) [facility] WITHOUT [id number] 08:31:28 Test Item Value Reference Range Interpretation Comments WBC (test code = 6690-2) See_Comment H [A utomated message] The system Visuu generated this result transmit gilberto reference range : 4.20 - 10.70 10*3/?L. The reference range was not used to interpret this result as normal/abnormal . RBC (test code = 789-8) See_Comment L [Au tomated message] The system Visuu generated this result transmit gilberto reference range : 4.26 - 5.52 10* 6/?L. The reference r lisa was not used to interpret this result as normal/abnormal . HGB (test code = 718-7) 8.4 g/dL 12.2-16.4 L HCT (test code = 4544-3) 28.2 % 38.4-49.3 L MCH (test code = 785-6) 30.2 pg 26.1-32.7 MCV (test code = 787-2) 101.4 fL 81.7-95.6 H MCHC (test code = 786-4) 29.8 g/dL 31.2-35 L PLT (test code = 777-3) See_Comment [Au tomated message] The system Visuu generated this result transmit gilberto reference range : 150 - 328 10*3/?L. The reference range was not used to interpret this result as normal/abnormal . MPV (test code = 11.1 fL 9.8-13 45439-6) RDW-CV (test code = 16.8 % 12.1-15.4 H 788-0) RDW-SD (test code = 62.1 fL 38.5-51.6 H 95771-3) NRBC x10^3 (test code = See_Comment [Au tomated message] 0372430823) The system Vis[employer] generated this result transmit gilberto reference range : 10*3/?L. The reference range was not used to interpret this result as normal/abnormal . NRBC/100 WBC (test code See_Comment [Au tomated message] = 4836134346) The system [facility] generated this result transmit gilberto reference range : 0.0 - 10.0 /100 WBC s. The reference r lisa was not used to interpret this result as normal/abnormal . IPF % (test code = 5307170831) Lab Interpretation (test Abnormal code = 33524-0) [facility] WITH [id number] 11:30:58 Test Item Value Reference Range Interpretation Comments WBC (test code = See_Comment H [Automated 6690-2) message] The system which generated this result transmit gilberto reference range : 4.20 - 10.70 10*3/?L. The reference range was not used to interpret this result as normal/abnormal . RBC (test code = See_Comment L [Automated 789-8) message] The system which generated this result transmit gilberto reference range : 4.26 - 5.52 10*6/?L. The reference range was not used to interpret this result as normal/abnormal . HGB (test code = 9.7 g/dL 12.2-16.4 L 718-7) HCT (test code = 32.5 % 38.4-49.3 L 4544-3) MCV (test code = 98.5 fL 81.7-95.6 H 787-2) MCH (test code = 29.4 pg 26.1-32.7 785-6) MCHC (test code = 29.8 g/dL 31.2-35 L 786-4) RDW-SD (test code = 60.6 fL 38.5-51.6 H 58613-5) RDW-CV (test code = 16.8 % 12.1-15.4 H 788-0) PLT (test code = See_Comment [Automated 777-3) message] The system which generated this result transmit gilberto reference range : 150 - 328 10*3/ ?L. The reference range was not u sed to interpret th is result as normal/abnormal . MPV (test code = 10.5 fL 9.8-13 22327-8) NRBC/100 WBC (test See_Comment [Automat ed code = 0241632806) message] The system which generated this result transmit gilberto reference range : 0.0 - 10.0 /100 WBCs. The reference range was not used to interpret this result as normal/abnormal . NRBC x10^3 (test code See_Comment [Auto mated = 1224846822) message] The system which generated this result transmit gilberto reference range : 10*3/?L. The reference range was not used to interpret this result as normal/abnormal . GRAN MAT (NEUT) % 89.4 % (test code = 770-8) IMM GRAN % (test code 0.80 % = 5845032974) LYMPH % (test code = 4.6 % 736-9) MONO % (test code = 3.6 % 5905-5) EOS % (test code = 1.4 % 713-8) BASO % (test code = 0.2 % 706-2) GRAN MAT x10^3(ANC) 14.83 10*3/uL 1.99-6.95 H (test code = 2187926523) IMM GRAN x10^3 (test 0.13 10*3/uL 0-0.06 H code = 3722713259) LYMPH x10^3 (test code 0.77 10*3/uL 1.09-3.23 L = 731-0) MONO x10^3 (test code 0.59 10*3/uL 0.36-1.02 = 742-7) EOS x10^3 (test code = 0.23 10*3/uL 0.06-0.53 711-2) BASO x10^3 (test code 0.03 10*3/uL 0.01-0.09 = 704-7) TOXIC CHANGES (test Present A code = 803-7) Lab Interpretation Abnormal (test code = 30398-1) [facility] METABOLIC PANEL (NA, K, CL, CO2, GLUCOSE, BUN, CREATININE, CA)2022-02-17 11:16:59 Test Item Value Reference Range Interpretation Comments NA (test code = 151 mmol/L 135-145 H 5461129956) K (test code = 3.4 mmol/L 3.5-5 L 7094103981) CL (test code = 118 mmol/L 98-108 H 2234206242) CO2 TOTAL (test code = 30 mmol/L 23-31 4122067165) AGAP (test code = 2-16 0296393651) BUN (test code = 53 mg/dL 7-23 H 8911439668) GLUCOSE (test code = 124 mg/dL 70-110 H 7427381685) CREATININE (test code = 1.03 mg/dL 0.6-1.25 3375649384) CALCIUM (test code = 8.7 mg/dL 8.6-10.6 2885062270) eGFR (test code = mL/min/1.73m2 7301591556) ADILENE (test code = ADILENE) Association of Glomerular Filtration Rate (GFR) and Staging of Kidney Disease* + --+ --+ ------+| GFR (mL/min/1.73 m2) ?| With Kidney Damage ?| ?Without Kidney Damage+ --------+ --------+ +| ?>90 ?| ?Stage one ?| ? Normal ?+ ---+ ---+ -------+| ?60-89 ?| ?Stage two ?| ? Decreased GFR ? + --+ --+ ------+| ?30-59 ?| ?Stage three ?| ? Stage three ? + --+ --+ ------+| ?15-29 ?| ?Stage four ? | ? Stage four ?+ ---+ ---+ -------+| ?<15 (or dialysis) ? ?| ?Stage five ? | ? Stage five ?+ ---+ ---+ -------+ *Each stage assumes the associated GFR level has been in effect for at least three months. ?Stages 1 to 5, with or without kidney disease, indicate chronic kidney disease. Notes: Determination of stages one and two (with eGFR >59mL/min/1.73 m2) requires estimation of kidney damage for at least three months as defined by structural or functional abnormalities of the kidney, manifested by either:Pathological abnormalities or Markers of kidney damage (including abnormalities in the composition of the blood or urine or abnormalities in imaging tests). Lab Interpretation Abnormal (test code = 93896-7) [facility] 11:16:59 Test Item Value Reference Range Interpretation Comments ALBUMIN (test code = 7386671361) 2.6 g/dL 3.5-5 L Lab Interpretation (test code = Abnormal 28937-1) [facility] 11:16:59 Test Item Value Reference Range Interpretation Comments MAGNESIUM (test code = 9789787078) 2.4 mg/dL 1.7-2.4 Lab Interpretation (test code = Normal 78811-6) [facility]OSPH[facility] 11:16:59 Test Item Value Reference Range Interpretation Comments PHOSPHORUS (test code = 0637952391) 3.5 mg/dL 2.5-5 Lab Interpretation (test code = Normal 36165-4) [facility] AreaFERRITIN [id number] 00:36:14 Test Item Value Reference Range Interpretation Comments FERRITIN (test code = 664.0 ng/mL 18-464 H 5841569145) ADILENE (test code = ADILENE) Biotin has been reported to cause a negative bias, interpret results relative to patient's use of biotin. Lab Interpretation (test Abnormal code = 61238-1) [facility] AreaTOTAL IRON BINDING [id number] 00:12:15 Test Item Value Reference Range Interpretation Comments TIBC (test code = 2557406665) 172 ug/dL 250-410 L % FE SAT (test code = 8166867416) 18 % 20-50 L Lab Interpretation (test code = Abnormal 01705-3) [facility] 00:01:30 Test Item Value Reference Range Interpretation Comments IRON (test code = 1120260139) 31 ug/dL 50-160 L Lab Interpretation (test code = Abnormal 40045-7) [facility] AreaSODIUM2022-07-01 22:43:23 Test Item Value Reference Range Interpretation Comments NA (test code = 4107422287) 153 mmol/L 135-145 H Lab Interpretation (test code = Abnormal 60478-7) [facility] AreaPROCALCITONIN2022-07-01 21:11:33 Test Item Value Reference Interpretation Comments Range Procalcitonin (test 0.12 ng/mL See_Comment H [Automa gilberto code = 5750090743) message] The system which generated this result transmitted reference range: <=0.07. The reference range was not used to interpret this result as normal/abnormal . ADILENE (test code = INTERPRETATION OF ADILENE) PROCALCITONIN RESULTS IN ADULTS >= 18 YEARS OF AGE Initiation and discontinuation of antibiotics on patients with suspected or confirmed Lower Respiratory Tract Infection in Adults >= 18 years of age. + +------ + ----+ +|Procalcit onin |Interpretation ?|Antibiotic ? ? |Considerations ? |ng/mL ? | ?|recommendation | ? + +------ + ----+ +| <0.1 ? | Bacterial ? ? ?| Strongly ? ? ?| ? | ?| infection very | discouraged ? | Overruling: ? | ?| unlikely ? ? ? | ? | ? Clinically unstable ? ? ? + +------ + ----+ ? High risk for adverse ? ? | <0.25 ?| Bacterial ? ? ?| Discouraged ? | ? outcome ? | ?| infection ? ? ?| ? | ? SEE IMPORTANT NOTE ?| ?| unlikely ? ? ? | ? | ? + +------ + ----+ +| >=0.25 ? ? ? | Bacterial ? ? ?| Encouraged ? ?| ? | ?| infection ? ? ?| ? | ? | ?| likely ? | ? | Consider treatment failure ?+ +----- + -----+ if levels does not decrease | >0.5 ? | Bacterial ? ? ?| Strongly ? ? ?| appropriately ? | ?| infection very | encouraged ? ?| ? | ?| likely ? | ? | ? + +------ + ----+ + Discontinuation of antibiotics in high-acuity patients with suspected or confirmed sepsis in Adults >= 18 years of age. + +------ + ----+ +|Procalcit onin |Interpretation ?|Antibiotic ? ? |Considerations ? |ng/mL ? | ?|recommendation | ? + +------ + ----+ +| <0.25 ?| Bacterial ? ? ?| Strongly ? ? ?| ? | ?| infection very | discouraged ? | Overruling: ? | ?| unlikely ? ? ? | ? | ? Clinically unstable ? ? ? + +------ + ----+ ? High risk for adverse ? ? | <0.5 or drop | Bacterial ? ? ?| Discouraged ? | ? outcome ? | >80% from ? ?| infection ? ? ?| ? | ? SEE IMPORTANT NOTE ?| highest PCT ?| unlikely ? ? ? | ? | ? | level ?| ?| ? | ? + +------ + ----+ +| >=0.5 ?| Bacterial ? ? ?| Encouraged ? ?| ? | ?| infection ? ? ?| ? | ? | ?| likely ? | ? | Consider treatment failure ?+ +----- + -----+ if levels does not decrease | >1.0 ? | Bacterial ? ? ?| Strongly ? ? ?| appropriately ? | ?| infection very | encouraged ? ?| ? | ?| likely ? | ? | ? + +------ + ----+ + Percentage of drop of Procalcitonin calculation for Discontinuation of antibiotics in high-acuity patients with suspected or confirmed sepsis in Adults >= 18 years of age. ? Procalcitonin highest{}-Procalcitoni n current{}Delta Procalcitonin = ___ x100% ? Procalcitonin current {} IMPORTANT NOTE: Procalcitonin may be elevated without bacterial infection by physiologic stress related to trauma, trotter, chronic dialysis, metastatic cancer, surgery in the past seven days, malaria, some fungal infections, and some forms of vasculitis. The interpretation algorithm may not apply to patients with immunosuppression (equivalent of >10 mg of prednisone daily), HIV with CD4 cell count < 350 cells/mm3, active malignancy on systemic chemotherapy, solid organ transplant or hematopoietic stem cell transplantation, or hospital acquired pneumonia. Additionally, some clinical trials of procalcitonin have excluded patients with shock requiring vasopressor use, acute respiratory failure requiring mechanical ventilation, or those with known lung abscess/empyema. For further information please refer to:[email or web address] Lab Interpretation Abnormal (test code = 62313-1) [facility]-TERMINAL [id number] 17:50:41 Test Item Value Reference Range Interpretation Comments NT-proBNP (test code 95636 pg/mL See_Comment H [Autom ated = 0249991924) message] The system which generated this result transmitted reference range : <=450. The reference range was not used to interpret this result as normal/abnormal . ADILENE (test code = ADILENE) Biotin has been reported to cause a negative bias, interpret results relative to patient's use of biotin. Lab Interpretation Abnormal (test code = 89385-9) [facility]ABOLIC [facility] (NA, K, CL, CO2, GLUCOSE, BUN, CREATININE, CA)2022-02-16 10:59:14 Test Item Value Reference Range Interpretation Comments NA (test code = 154 mmol/L 135-145 H 4604680490) K (test code = 3.8 mmol/L 3.5-5 9357001788) CL (test code = 117 mmol/L 98-108 H 9567886778) CO2 TOTAL (test code = 33 mmol/L 23-31 H 5459532770) AGAP (test code = 2-16 3378434190) BUN (test code = 50 mg/dL 7-23 H 8029813762) GLUCOSE (test code = 130 mg/dL 70-110 H 2255886828) CREATININE (test code = 1.08 mg/dL 0.6-1.25 3327070847) CALCIUM (test code = 8.7 mg/dL 8.6-10.6 9645993412) eGFR (test code = mL/min/1.73m2 5625187163) ADILENE (test code = ADILENE) Association of Glomerular Filtration Rate (GFR) and Staging of Kidney Disease* + --+ --+ ------+| GFR (mL/min/1.73 m2) ?| With Kidney Damage ?| ?Without Kidney Damage+ --------+ --------+ +| ?>90 ?| ?Stage one ?| ? Normal ?+ ---+ ---+ -------+| ?60-89 ?| ?Stage two ?| ? Decreased GFR ? + --+ --+ ------+| ?30-59 ?| ?Stage three ?| ? Stage three ? + --+ --+ ------+| ?15-29 ?| ?Stage four ? | ? Stage four ?+ ---+ ---+ -------+| ?<15 (or dialysis) ? ?| ?Stage five ? | ? Stage five ?+ ---+ ---+ -------+ *Each stage assumes the associated GFR level has been in effect for at least three months. ?Stages 1 to 5, with or without kidney disease, indicate chronic kidney disease. Notes: Determination of stages one and two (with eGFR >59mL/min/1.73 m2) requires estimation of kidney damage for at least three months as defined by structural or functional abnormalities of the kidney, manifested by either:Pathological abnormalities or Markers of kidney damage (including abnormalities in the composition of the blood or urine or abnormalities in imaging tests). Lab Interpretation Abnormal (test code = 90223-7) [facility] 10:59:14 Test Item Value Reference Range Interpretation Comments MAGNESIUM (test code = 0231612346) 2.3 mg/dL 1.7-2.4 Lab Interpretation (test code = Normal 65931-3) [facility] [id number]/[id number] 10:40:00 Test Item Value Reference Range Interpretation Comments ARTERIAL BLOOD GAS PH TEST NOT PERFORMED 7.35-7.45 (test code = PHA) ARTERIAL BLOOD GAS PCO2 TEST NOT PERFORMED 35-45 (test code = PCO2A) mmHg ARTERIAL BLOOD GAS PO2 TEST NOT PERFORMED 80-100 (test code = PO2A) mmHg BICARBONATE TOTAL HCO3 TEST NOT PERFORMED 22.0-26.0 (test code = HCO3) mmol/L IONIZED CALCIUM (test TEST NOT PERFORMED 1.15-1.35 code = CAIABG) mmoL/L SODIUM BEDSIDE (test TEST NOT PERFORMED 134-147 code = NAB) MEQ/L POTASSIUM BEDSIDE (test TEST NOT PERFORMED 4.5-7.0 code = KBD) MEQ/L BLOOD GAS [id number] 10:39:00 Test Item Value Reference Range Interpretation Comments ARTERIAL BLOOD GAS PH TEST NOT PERFORMED 7.35-7.45 (test code = PHA) ARTERIAL BLOOD GAS PCO2 TEST NOT PERFORMED 35-45 (test code = PCO2A) mmHg ARTERIAL BLOOD GAS PO2 TEST NOT PERFORMED 80-100 (test code = PO2A) mmHg BICARBONATE TOTAL HCO3 TEST NOT PERFORMED 22.0-26.0 (test code = HCO3) mmol/L IONIZED CALCIUM (test TEST NOT PERFORMED 1.15-1.35 code = CAIABG) mmoL/L SODIUM BEDSIDE (test TEST NOT PERFORMED 134-147 code = NAB) MEQ/L POTASSIUM BEDSIDE (test TEST NOT PERFORMED 4.5-7.0 code = KBD) MEQ/L BASIC METABOLIC PANEL (NA, K, CL, CO2, GLUCOSE, BUN, CREATININE, CA)2022-02-15 09:46:06 Test Item Value Reference Range Interpretation Comments NA (test code = 152 mmol/L 135-145 H 2950633058) K (test code = 3.2 mmol/L 3.5-5 L 6160256178) CL (test code = 117 mmol/L 98-108 H 5849793233) CO2 TOTAL (test code = 32 mmol/L 23-31 H 7767556603) AGAP (test code = 2-16 3716992379) BUN (test code = 48 mg/dL 7-23 H 7998598643) GLUCOSE (test code = 148 mg/dL 70-110 H 2663751784) CREATININE (test code = 1.26 mg/dL 0.6-1.25 H 9769493522) CALCIUM (test code = 8.7 mg/dL 8.6-10.6 9157202207) eGFR (test code = mL/min/1.73m2 0143246683) ADILENE (test code = ADILENE) Association of Glomerular Filtration Rate (GFR) and Staging of Kidney Disease* + --+ --+ ------+| GFR (mL/min/1.73 m2) ?| With Kidney Damage ?| ?Without Kidney Damage+ --------+ --------+ +| ?>90 ?| ?Stage one ?| ? Normal ?+ ---+ ---+ -------+| ?60-89 ?| ?Stage two ?| ? Decreased GFR ? + --+ --+ ------+| ?30-59 ?| ?Stage three ?| ? Stage three ? + --+ --+ ------+| ?15-29 ?| ?Stage four ? | ? Stage four ?+ ---+ ---+ -------+| ?<15 (or dialysis) ? ?| ?Stage five ? | ? Stage five ?+ ---+ ---+ -------+ *Each stage assumes the associated GFR level has been in effect for at least three months. ?Stages 1 to 5, with or without kidney disease, indicate chronic kidney disease. Notes: Determination of stages one and two (with eGFR >59mL/min/1.73 m2) requires estimation of kidney damage for at least three months as defined by structural or functional abnormalities of the kidney, manifested by either:Pathological abnormalities or Markers of kidney damage (including abnormalities in the composition of the blood or urine or abnormalities in imaging tests). Lab Interpretation Abnormal (test code = 08569-6) [facility] WITH [id number] 09:35:07 Test Item Value Reference Range Interpretation Comments WBC (test code = See_Comment H [Automated 6690-2) message] The system which generated this result transmit gilberto reference range : 4.20 - 10.70 10*3/?L. The reference range was not used to interpret this result as normal/abnormal . RBC (test code = See_Comment L [Automated 789-8) message] The system which generated this result transmit gilberto reference range : 4.26 - 5.52 10*6/?L. The reference range was not used to interpret this result as normal/abnormal . HGB (test code = 8.8 g/dL 12.2-16.4 L 718-7) HCT (test code = 28.4 % 38.4-49.3 L 4544-3) MCV (test code = 96.9 fL 81.7-95.6 H 787-2) MCH (test code = 30.0 pg 26.1-32.7 785-6) MCHC (test code = 31.0 g/dL 31.2-35 L 786-4) RDW-SD (test code = 57.7 fL 38.5-51.6 H 63651-8) RDW-CV (test code = 16.3 % 12.1-15.4 H 788-0) PLT (test code = See_Comment [Automated 777-3) message] The system which generated this result transmit gilberto reference range : 150 - 328 10*3/ ?L. The reference range was not u sed to interpret th is result as normal/abnormal . MPV (test code = 10.9 fL 9.8-13 57596-7) NRBC/100 WBC (test See_Comment [Automat ed code = 9861362613) message] The system which generated this result transmit gilberto reference range : 0.0 - 10.0 /100 WBCs. The reference range was not used to interpret this result as normal/abnormal . NRBC x10^3 (test code See_Comment [Auto mated = 2576712974) message] The system which generated this result transmit gilberto reference range : 10*3/?L. The reference range was not used to interpret this result as normal/abnormal . GRAN MAT (NEUT) % 90.5 % (test code = 770-8) IMM GRAN % (test code 0.80 % = 2409230413) LYMPH % (test code = 4.2 % 736-9) MONO % (test code = 4.0 % 5905-5) EOS % (test code = 0.4 % 713-8) BASO % (test code = 0.1 % 706-2) GRAN MAT x10^3(ANC) 12.97 10*3/uL 1.99-6.95 H (test code = 9165046080) IMM GRAN x10^3 (test 0.11 10*3/uL 0-0.06 H code = 3800994518) LYMPH x10^3 (test code 0.60 10*3/uL 1.09-3.23 L = 731-0) MONO x10^3 (test code 0.58 10*3/uL 0.36-1.02 = 742-7) EOS x10^3 (test code = 0.06 10*3/uL 0.06-0.53 711-2) BASO x10^3 (test code 0.01-0.09 = 704-7) Lab Interpretation Abnormal (test code = 72750-1) [facility] [id number] 00:01:24 Test Item Value Reference Range Interpretation Comments Blood Culture-Aerobic No organisms No growth Previo us (test code = 59100-6) isolated prelim inary verified result was Culture In Progress on 02/09/2022 at 22 CDTPrevious preliminary verified result was No growth a t 24 hours on 02/10/2022 at 06 09 CDTPrevious preliminary verified result was No growth a t 48 hours on 02/11/2022 at 06 09 CDTPrevious preliminary verified result was No growth a t 72 hours on 02/12/2022 at 06 09 CDT Blood No organisms No growth Previous Culture-Anaerobic isolated preliminar y (test code = 15237-0) verifi ed result was Culture In Progress on 02/09/2022 at 22 CDTPrevious preliminary verified result was No growth a t 24 hours on 02/10/2022 at 06 09 CDTPrevious preliminary verified result was No growth a t 48 hours on 02/11/2022 at 06 09 CDTPrevious preliminary verified result was No growth a t 72 hours on 02/12/2022 at 06 09 CDT Lab Interpretation Normal (test code = 05292-3) [facility] # [id number] 00:01:24 Test Item Value Reference Range Interpretation Comments Blood Culture-Aerobic No organisms No growth Previo us (test code = 23595-2) isolated prelim inary verified result was Culture In Progress on 02/09/2022 at 22 CDTPrevious preliminary verified result was No growth a t 24 hours on 02/10/2022 at 06 09 CDTPrevious preliminary verified result was No growth a t 48 hours on 02/11/2022 at 06 09 CDTPrevious preliminary verified result was No growth a t 72 hours on 02/12/2022 at 06 09 CDT Blood No organisms No growth Previous Culture-Anaerobic isolated preliminar y (test code = 32417-1) verifi ed result was Culture In Progress on 02/09/2022 at 22 CDTPrevious preliminary verified result was No growth a t 24 hours on 02/10/2022 at 06 09 CDTPrevious preliminary verified result was No growth a t 48 hours on 02/11/2022 at 06 09 CDTPrevious preliminary verified result was No growth a t 72 hours on 02/12/2022 at 19 01 CDT Lab Interpretation Normal (test code = 74387-8) [facility] [id number] 22:16:49 Test Item Value Reference Range Interpretation Comments SPUTUM CULTURE (test Specimen cellular code = 622-1) elements do not represent lower respiratory tract. Specimen rejected for routine bacterial culture. Suggest reorder and recollection. Gram stain (test code Numerous Epithelial = 664-3) cells [facility] (NA, K, CL, CO2, GLUCOSE, BUN, CREATININE, CA)2022-02-14 21:48:21 Test Item Value Reference Range Interpretation Comments NA (test code = 150 mmol/L 135-145 H 6093670335) K (test code = 3.7 mmol/L 3.5-5 3122506694) CL (test code = 117 mmol/L 98-108 H 1934941496) CO2 TOTAL (test code = 33 mmol/L 23-31 H 9057284829) AGAP (test code = 2-16 L 2776704831) BUN (test code = 47 mg/dL 7-23 H 1419961379) GLUCOSE (test code = 181 mg/dL 70-110 H 4156220379) CREATININE (test code = 1.38 mg/dL 0.6-1.25 H 7999189098) CALCIUM (test code = 8.7 mg/dL 8.6-10.6 4190463694) eGFR (test code = mL/min/1.73m2 8466189711) ADILENE (test code = ADILENE) Association of Glomerular Filtration Rate (GFR) and Staging of Kidney Disease* + --+ --+ ------+| GFR (mL/min/1.73 m2) ?| With Kidney Damage ?| ?Without Kidney Damage+ --------+ --------+ +| ?>90 ?| ?Stage one ?| ? Normal ?+ ---+ ---+ -------+| ?60-89 ?| ?Stage two ?| ? Decreased GFR ? + --+ --+ ------+| ?30-59 ?| ?Stage three ?| ? Stage three ? + --+ --+ ------+| ?15-29 ?| ?Stage four ? | ? Stage four ?+ ---+ ---+ -------+| ?<15 (or dialysis) ? ?| ?Stage five ? | ? Stage five ?+ ---+ ---+ -------+ *Each stage assumes the associated GFR level has been in effect for at least three months. ?Stages 1 to 5, with or without kidney disease, indicate chronic kidney disease. Notes: Determination of stages one and two (with eGFR >59mL/min/1.73 m2) requires estimation of kidney damage for at least three months as defined by structural or functional abnormalities of the kidney, manifested by either:Pathological abnormalities or Markers of kidney damage (including abnormalities in the composition of the blood or urine or abnormalities in imaging tests). Lab Interpretation Abnormal (test code = 80535-1) [facility] [id number] 18:01:14 Test Item Value Reference Range Interpretation Comments SPUTUM CULTURE 3+ Yeast not Cryptococcus (test code = 622-1) species Gram stain (test Numerous Epithelial cells code = 664-3) ADILENE (test code = Bacterial pathogens ADILENE) associated with lower respiratory infections were not identified, which include Pseudomonas aeruginosa and Staphylococcus aureus (MRSA or MSSA). [facility] METABOLIC PANEL (NA, K, CL, CO2, GLUCOSE, BUN, CREATININE, CA)2022-02-14 10:35:28 Test Item Value Reference Range Interpretation Comments NA (test code = 147 mmol/L 135-145 H 8056327473) K (test code = 2.6 mmol/L 3.5-5 LL 9756989512) CL (test code = 115 mmol/L 98-108 H 7884690667) CO2 TOTAL (test code = 29 mmol/L 23-31 8924337560) AGAP (test code = 2-16 8523755847) BUN (test code = 45 mg/dL 7-23 H 5772498872) GLUCOSE (test code = 146 mg/dL 70-110 H 9657163446) CREATININE (test code = 1.41 mg/dL 0.6-1.25 H 0440311211) CALCIUM (test code = 8.4 mg/dL 8.6-10.6 L 5329923952) eGFR (test code = mL/min/1.73m2 0443720655) ADILENE (test code = ADILENE) Association of Glomerular Filtration Rate (GFR) and Staging of Kidney Disease* + --+ --+ ------+| GFR (mL/min/1.73 m2) ?| With Kidney Damage ?| ?Without Kidney Damage+ --------+ --------+ +| ?>90 ?| ?Stage one ?| ? Normal ?+ ---+ ---+ -------+| ?60-89 ?| ?Stage two ?| ? Decreased GFR ? + --+ --+ ------+| ?30-59 ?| ?Stage three ?| ? Stage three ? + --+ --+ ------+| ?15-29 ?| ?Stage four ? | ? Stage four ?+ ---+ ---+ -------+| ?<15 (or dialysis) ? ?| ?Stage five ? | ? Stage five ?+ ---+ ---+ -------+ *Each stage assumes the associated GFR level has been in effect for at least three months. ?Stages 1 to 5, with or without kidney disease, indicate chronic kidney disease. Notes: Determination of stages one and two (with eGFR >59mL/min/1.73 m2) requires estimation of kidney damage for at least three months as defined by structural or functional abnormalities of the kidney, manifested by either:Pathological abnormalities or Markers of kidney damage (including abnormalities in the composition of the blood or urine or abnormalities in imaging tests). Lab Interpretation Abnormal (test code = 63502-4) [facility]2022-06-29 10:13:13 Test Item Value Reference Range Interpretation Comments MAGNESIUM (test code = 7271525981) 2.2 mg/dL 1.7-2.4 Lab Interpretation (test code = Normal 19417-5) [facility] WITH [id number] 09:59:50 Test Item Value Reference Range Interpretation Comments WBC (test code = See_Comment H [Automated 6690-2) message] The system which generated this result transmit gilberto reference range : 4.20 - 10.70 10*3/?L. The reference range was not used to interpret this result as normal/abnormal . RBC (test code = See_Comment L [Automated 789-8) message] The system which generated this result transmit gilberto reference range : 4.26 - 5.52 10*6/?L. The reference range was not used to interpret this result as normal/abnormal . HGB (test code = 8.8 g/dL 12.2-16.4 L 718-7) HCT (test code = 28.2 % 38.4-49.3 L 4544-3) MCV (test code = 97.6 fL 81.7-95.6 H 787-2) MCH (test code = 30.4 pg 26.1-32.7 785-6) MCHC (test code = 31.2 g/dL 31.2-35 786-4) RDW-SD (test code = 57.8 fL 38.5-51.6 H 07287-8) RDW-CV (test code = 16.2 % 12.1-15.4 H 788-0) PLT (test code = See_Comment [Automated 777-3) message] The system which generated this result transmit gilberto reference range : 150 - 328 10*3/ ?L. The reference range was not u sed to interpret th is result as normal/abnormal . MPV (test code = 10.7 fL 9.8-13 68103-8) NRBC/100 WBC (test See_Comment [Automat ed code = 7497524881) message] The system which generated this result transmit gilberto reference range : 0.0 - 10.0 /100 WBCs. The reference range was not used to interpret this result as normal/abnormal . NRBC x10^3 (test code See_Comment [Auto mated = 1143534746) message] The system which generated this result transmit gilberto reference range : 10*3/?L. The reference range was not used to interpret this result as normal/abnormal . GRAN MAT (NEUT) % 92.4 % (test code = 770-8) IMM GRAN % (test code 0.80 % = 5115164346) LYMPH % (test code = 3.4 % 736-9) MONO % (test code = 3.0 % 5905-5) EOS % (test code = 0.2 % 713-8) BASO % (test code = 0.2 % 706-2) GRAN MAT x10^3(ANC) 11.28 10*3/uL 1.99-6.95 H (test code = 1638667806) IMM GRAN x10^3 (test 0.10 10*3/uL 0-0.06 H code = 8440487026) LYMPH x10^3 (test code 0.41 10*3/uL 1.09-3.23 L = 731-0) MONO x10^3 (test code 0.37 10*3/uL 0.36-1.02 = 742-7) EOS x10^3 (test code = 0.03 10*3/uL 0.06-0.53 L 711-2) BASO x10^3 (test code 0.01-0.09 = 704-7) Lab Interpretation Abnormal (test code = 60767-5) [facility] METABOLIC PANEL (NA, K, CL, CO2, GLUCOSE, BUN, CREATININE, CA)2022-02-13 19:54:51 Test Item Value Reference Range Interpretation Comments NA (test code = 146 mmol/L 135-145 H 0497053857) K (test code = 3.1 mmol/L 3.5-5 L 3357027024) CL (test code = 113 mmol/L 98-108 H 1858716761) CO2 TOTAL (test code = 28 mmol/L 23-31 8576753147) AGAP (test code = 2-16 2082499129) BUN (test code = 44 mg/dL 7-23 H 1446093821) GLUCOSE (test code = 117 mg/dL 70-110 H 2362176328) CREATININE (test code = 1.49 mg/dL 0.6-1.25 H 1221608675) CALCIUM (test code = 8.4 mg/dL 8.6-10.6 L 0774474727) eGFR (test code = mL/min/1.73m2 7503535450) ADILENE (test code = ADILENE) Association of Glomerular Filtration Rate (GFR) and Staging of Kidney Disease* + --+ --+ ------+| GFR (mL/min/1.73 m2) ?| With Kidney Damage ?| ?Without Kidney Damage+ --------+ --------+ +| ?>90 ?| ?Stage one ?| ? Normal ?+ ---+ ---+ -------+| ?60-89 ?| ?Stage two ?| ? Decreased GFR ? + --+ --+ ------+| ?30-59 ?| ?Stage three ?| ? Stage three ? + --+ --+ ------+| ?15-29 ?| ?Stage four ? | ? Stage four ?+ ---+ ---+ -------+| ?<15 (or dialysis) ? ?| ?Stage five ? | ? Stage five ?+ ---+ ---+ -------+ *Each stage assumes the associated GFR level has been in effect for at least three months. ?Stages 1 to 5, with or without kidney disease, indicate chronic kidney disease. Notes: Determination of stages one and two (with eGFR >59mL/min/1.73 m2) requires estimation of kidney damage for at least three months as defined by structural or functional abnormalities of the kidney, manifested by either:Pathological abnormalities or Markers of kidney damage (including abnormalities in the composition of the blood or urine or abnormalities in imaging tests). Lab Interpretation Abnormal (test code = 98395-7) [facility] METABOLIC PANEL (NA, K, CL, CO2, GLUCOSE, BUN, CREATININE, CA)2022-02-13 11:41:41 Test Item Value Reference Range Interpretation Comments NA (test code = 142 mmol/L 135-145 2094114916) K (test code = 2.8 mmol/L 3.5-5 LL 6741263204) CL (test code = 113 mmol/L 98-108 H 4362152529) CO2 TOTAL (test code = 28 mmol/L 23-31 9257425635) AGAP (test code = 2-16 L 1038718875) BUN (test code = 46 mg/dL 7-23 H 7824294295) GLUCOSE (test code = 104 mg/dL 70-110 7472205995) CREATININE (test code = 1.45 mg/dL 0.6-1.25 H 9500911796) CALCIUM (test code = 8.2 mg/dL 8.6-10.6 L 6971175229) eGFR (test code = mL/min/1.73m2 6795954303) ADILENE (test code = ADILENE) Association of Glomerular Filtration Rate (GFR) and Staging of Kidney Disease* + --+ --+ ------+| GFR (mL/min/1.73 m2) ?| With Kidney Damage ?| ?Without Kidney Damage+ --------+ --------+ +| ?>90 ?| ?Stage one ?| ? Normal ?+ ---+ ---+ -------+| ?60-89 ?| ?Stage two ?| ? Decreased GFR ? + --+ --+ ------+| ?30-59 ?| ?Stage three ?| ? Stage three ? + --+ --+ ------+| ?15-29 ?| ?Stage four ? | ? Stage four ?+ ---+ ---+ -------+| ?<15 (or dialysis) ? ?| ?Stage five ? | ? Stage five ?+ ---+ ---+ -------+ *Each stage assumes the associated GFR level has been in effect for at least three months. ?Stages 1 to 5, with or without kidney disease, indicate chronic kidney disease. Notes: Determination of stages one and two (with eGFR >59mL/min/1.73 m2) requires estimation of kidney damage for at least three months as defined by structural or functional abnormalities of the kidney, manifested by either:Pathological abnormalities or Markers of kidney damage (including abnormalities in the composition of the blood or urine or abnormalities in imaging tests). Lab Interpretation Abnormal (test code = 57995-4) [facility] 11:36:18 Test Item Value Reference Range Interpretation Comments MAGNESIUM (test code = 3672359211) 2.1 mg/dL 1.7-2.4 Lab Interpretation (test code = Normal 10933-7) [facility] WITH [id number] 10:45:32 Test Item Value Reference Range Interpretation Comments WBC (test code = See_Comment H [Automated 3490-2) message] The sy stem which generated this result transmitted reference range : 4.20 - 10.70 10*3/?L. The reference range was not used to interpret this result as normal/abnormal . RBC (test code = See_Comment L [Automated 109-8) message] The sy stem which generated this result transmitted reference range : 4.26 - 5.52 10*6/?L. The reference range was not used to interpret this result as normal/abnormal . HGB (test code = 8.2 g/dL 12.2-16.4 L 718-7) HCT (test code = 27.0 % 38.4-49.3 L 4544-3) MCV (test code = 97.1 fL 81.7-95.6 H 787-2) MCH (test code = 29.5 pg 26.1-32.7 785-6) MCHC (test code = 30.4 g/dL 31.2-35 L 786-4) RDW-SD (test code = 57.2 fL 38.5-51.6 H 70425-2) RDW-CV (test code = 16.1 % 12.1-15.4 H 788-0) PLT (test code = See_Comment [Automated 777-3) message] The sy stem which generated this result transmitted reference range : 150 - 328 10*3/ ?L. The reference r lisa was not used to interpret this result as normal/abnormal . MPV (test code = 10.6 fL 9.8-13 81295-6) NRBC/100 WBC (test See_Comment [Automat ed code = 6527049414) message] The system which generated this result transmitted reference range : 0.0 - 10.0 /100 WBCs. The refer ence range was not u sed to interpret th is result as normal/abnormal . NRBC x10^3 (test code See_Comment [Auto mated = 0538887464) message] The s ystem which generated this result transmitted reference range : 10*3/?L. The reference range was not used to interpret this result as normal/abnormal . GRAN MAT (NEUT) % 90.3 % (test code = 770-8) IMM GRAN % (test code 1.10 % = 0670544750) LYMPH % (test code = 4.4 % 736-9) MONO % (test code = 3.8 % 5905-5) EOS % (test code = 0.3 % 713-8) BASO % (test code = 0.1 % 706-2) GRAN MAT x10^3(ANC) 9.75 10*3/uL 1.99-6.95 H (test code = 0459055384) IMM GRAN x10^3 (test 0.12 10*3/uL 0-0.06 H code = 4161578895) LYMPH x10^3 (test code 0.47 10*3/uL 1.09-3.23 L = 731-0) MONO x10^3 (test code 0.41 10*3/uL 0.36-1.02 = 742-7) EOS x10^3 (test code = 0.03 10*3/uL 0.06-0.53 L 711-2) BASO x10^3 (test code 0.01-0.09 = 704-7) Lab Interpretation Abnormal (test code = 35395-2) [facility] METABOLIC PANEL (NA, K, CL, CO2, GLUCOSE, BUN, CREATININE, CA)2022-02-12 10:37:31 Test Item Value Reference Range Interpretation Comments NA (test code = 143 mmol/L 135-145 1018614907) K (test code = 3.4 mmol/L 3.5-5 L 4858623154) CL (test code = 113 mmol/L 98-108 H 0733955536) CO2 TOTAL (test code = 24 mmol/L 23-31 2215610943) AGAP (test code = 2-16 2780465841) BUN (test code = 48 mg/dL 7-23 H 3355388320) GLUCOSE (test code = 83 mg/dL 70-110 1743739900) CREATININE (test code = 1.73 mg/dL 0.6-1.25 H 0100188196) CALCIUM (test code = 8.2 mg/dL 8.6-10.6 L 1394901176) eGFR (test code = mL/min/1.73m2 4408986958) ADILENE (test code = ADILENE) Association of Glomerular Filtration Rate (GFR) and Staging of Kidney Disease* + --+ --+ ------+| GFR (mL/min/1.73 m2) ?| With Kidney Damage ?| ?Without Kidney Damage+ --------+ --------+ +| ?>90 ?| ?Stage one ?| ? Normal ?+ ---+ ---+ -------+| ?60-89 ?| ?Stage two ?| ? Decreased GFR ? + --+ --+ ------+| ?30-59 ?| ?Stage three ?| ? Stage three ? + --+ --+ ------+| ?15-29 ?| ?Stage four ? | ? Stage four ?+ ---+ ---+ -------+| ?<15 (or dialysis) ? ?| ?Stage five ? | ? Stage five ?+ ---+ ---+ -------+ *Each stage assumes the associated GFR level has been in effect for at least three months. ?Stages 1 to 5, with or without kidney disease, indicate chronic kidney disease. Notes: Determination of stages one and two (with eGFR >59mL/min/1.73 m2) requires estimation of kidney damage for at least three months as defined by structural or functional abnormalities of the kidney, manifested by either:Pathological abnormalities or Markers of kidney damage (including abnormalities in the composition of the blood or urine or abnormalities in imaging tests). Lab Interpretation Abnormal (test code = 16797-7) [facility] Without [id number] 10:14:11 Test Item Value Reference Range Interpretation Comments WBC (test code = 6690-2) See_Comment [A utomated message] The system [employer] generated this result transmit gilberto reference range : 4.20 - 10.70 10*3/?L. The reference range was not used to interpret this result as normal/abnormal . RBC (test code = 789-8) See_Comment L [Au tomated message] The system [employer] generated this result transmit gilberto reference range : 4.26 - 5.52 10* 6/?L. The reference r lisa was not used to interpret this result as normal/abnormal . HGB (test code = 718-7) 8.0 g/dL 12.2-16.4 L HCT (test code = 4544-3) 27.2 % 38.4-49.3 L MCH (test code = 785-6) 29.6 pg 26.1-32.7 MCV (test code = 787-2) 100.7 fL 81.7-95.6 H MCHC (test code = 786-4) 29.4 g/dL 31.2-35 L PLT (test code = 777-3) See_Comment [Au tomated message] The system [employer] generated this result transmit gilberto reference range : 150 - 328 10*3/?L. The reference range was not used to interpret this result as normal/abnormal . MPV (test code = 10.3 fL 9.8-13 91116-3) RDW-CV (test code = 16.3 % 12.1-15.4 H 788-0) RDW-SD (test code = 60.3 fL 38.5-51.6 H 61322-9) NRBC x10^3 (test code = See_Comment [Au tomated message] 7073788397) The system [employer] generated this result transmit gilberto reference range : 10*3/?L. The reference range was not used to interpret this result as normal/abnormal . NRBC/100 WBC (test code See_Comment [Au tomated message] = 9346633813) The system [facility] generated this result transmit gilberto reference range : 0.0 - 10.0 /100 WBC s. The reference r lisa was not used to interpret this result as normal/abnormal . IPF % (test code = 2716382759) Lab Interpretation (test Abnormal code = 13648-3) [facility]GLU[facility]CA2+2022-02-12 09:55:36 Test Item Value Reference Range Interpretation Comments PH (test code = 2) 7.35-7.45 PCO2 (test code = See_Comment [Automate d message] 3716590087) The system [employer] generated this result transmit gilberto reference range : 35 - 45 mmHg. The reference range was not used to interpret this result as normal/abnormal . PO2 (test code = See_Comment L [Automated message] 7650215387) The system [employer] generated this result transmit gilberto reference range : 80 - 100 mmHg. The reference range was not used to interpret this result as normal/abnormal . HCO3 (test code = See_Comment L [Automate d message] 7945182550) The system [employer] generated this result transmit gilberto reference range : 22 - 26 mEq/L. The reference range was not used to interpret this result as normal/abnormal . BE (test code = See_Comment L [Automated message] 2045728718) The system [employer] generated this result transmit gilberto reference range : -3.0 - 3.0 mEq/ L. The reference r lisa was not used to interpret this result as normal/abnormal . THB (test code = 8.9 g/dL 13.5-18 L 9501099604) %O2HB (test code = 93.9 % 94-99 L 8344109604) %COHB ART (test code = 0.3 % 0-1.5 6810738564) %METHB ART (test code = 0.3 % 0.4-1.5 L 8287458350) VOL%O2 ART (test code = 11.9 % 15-23 L 6062438479) NA (test code = 141 mmol/L 135-145 2661909075) K+ (test code = 3.1 mmol/L 3.5-5 L 9959142220) AC CA IONZ (test code = 4.70 mg/dL 4.5-5.3 0559329435) GLUCOSE (test code = 83 mg/dL 70-110 7081453588) Lab Interpretation Abnormal (test code = 50541-9) [facility] 06:12:23 Test Item Value Reference Range Interpretation Comments POCT GLU (test code = 8411581630) 74 mg/dL 70-110 Lab Interpretation (test code = Normal 14769-9) [facility] METABOLIC PANEL (NA, K, CL, CO2, GLUCOSE, BUN, CREATININE, CA)2022-02-11 23:45:13 Test Item Value Reference Range Interpretation Comments NA (test code = 141 mmol/L 135-145 9728289382) K (test code = 3.9 mmol/L 3.5-5 3842880472) CL (test code = 112 mmol/L 98-108 H 8508261651) CO2 TOTAL (test code = 23 mmol/L 23-31 5914792022) AGAP (test code = 2-16 8128200421) BUN (test code = 48 mg/dL 7-23 H 3416639234) GLUCOSE (test code = 51 mg/dL 70-110 L 9407009995) CREATININE (test code = 1.48 mg/dL 0.6-1.25 H 0044017623) CALCIUM (test code = 8.1 mg/dL 8.6-10.6 L 6089358350) eGFR (test code = mL/min/1.73m2 2337069690) ADILENE (test code = ADILENE) Association of Glomerular Filtration Rate (GFR) and Staging of Kidney Disease* + --+ --+ ------+| GFR (mL/min/1.73 m2) ?| With Kidney Damage ?| ?Without Kidney Damage+ --------+ --------+ +| ?>90 ?| ?Stage one ?| ? Normal ?+ ---+ ---+ -------+| ?60-89 ?| ?Stage two ?| ? Decreased GFR ? + --+ --+ ------+| ?30-59 ?| ?Stage three ?| ? Stage three ? + --+ --+ ------+| ?15-29 ?| ?Stage four ? | ? Stage four ?+ ---+ ---+ -------+| ?<15 (or dialysis) ? ?| ?Stage five ? | ? Stage five ?+ ---+ ---+ -------+ *Each stage assumes the associated GFR level has been in effect for at least three months. ?Stages 1 to 5, with or without kidney disease, indicate chronic kidney disease. Notes: Determination of stages one and two (with eGFR >59mL/min/1.73 m2) requires estimation of kidney damage for at least three months as defined by structural or functional abnormalities of the kidney, manifested by either:Pathological abnormalities or Markers of kidney damage (including abnormalities in the composition of the blood or urine or abnormalities in imaging tests). Lab Interpretation Abnormal (test code = 31808-9) [facility] (for use with Heparin Infusion)2022-02-11 22:46:14 Test Item Value Reference Range Interpretation Comments APTT Patient (test code See_Comment H [Au tomated message] = 3173-2) The system [employer] generated this result transmitted ref erence range: 26 - 36 Seconds. The reference range was not used to int erpret this result as normal/abnormal . Lab Interpretation (test Abnormal code = 70984-1) [facility] (for use with Heparin Infusion)2022-02-11 11:40:02 Test Item Value Reference Range Interpretation Comments APTT Patient (test code See_Comment H [Au tomated message] = 3173-2) The system [employer] generated this result transmitted ref erence range: 26 - 36 Seconds. The reference range was not used to int erpret this result as normal/abnormal . Lab Interpretation (test Abnormal code = 39603-4) [facility] Without [id number] 10:44:56 Test Item Value Reference Range Interpretation Comments WBC (test code = 6690-2) See_Comment [A utomated message] The system [employer] generated this result transmit gilberto reference range : 4.20 - 10.70 10*3/?L. The reference range was not used to interpret this result as normal/abnormal . RBC (test code = 789-8) See_Comment L [Au tomated message] The system [employer] generated this result transmit gilberto reference range : 4.26 - 5.52 10* 6/?L. The reference r lisa was not used to interpret this result as normal/abnormal . HGB (test code = 718-7) 7.4 g/dL 12.2-16.4 L HCT (test code = 4544-3) 24.9 % 38.4-49.3 L MCH (test code = 785-6) 29.8 pg 26.1-32.7 MCV (test code = 787-2) 100.4 fL 81.7-95.6 H MCHC (test code = 786-4) 29.7 g/dL 31.2-35 L PLT (test code = 777-3) See_Comment [Au tomated message] The system [employer] generated this result transmit gilberto reference range : 150 - 328 10*3/?L. The reference range was not used to interpret this result as normal/abnormal . MPV (test code = 10.7 fL 9.8-13 19839-5) RDW-CV (test code = 16.2 % 12.1-15.4 H 788-0) RDW-SD (test code = 59.7 fL 38.5-51.6 H 23533-4) NRBC x10^3 (test code = See_Comment [Au tomated message] 7231190454) The system [employer] generated this result transmit gilberto reference range : 10*3/?L. The reference range was not used to interpret this result as normal/abnormal . NRBC/100 WBC (test code See_Comment [Au tomated message] = 8354904468) The system [facility] generated this result transmit gilberto reference range : 0.0 - 10.0 /100 WBC s. The reference r lisa was not used to interpret this result as normal/abnormal . IPF % (test code = 0298671780) Lab Interpretation (test Abnormal code = 70634-5) [facility] [id number] 23:26:46 Test Item Value Reference Interpretation Comments Range TROPONIN I (test 2.360 ng/mL See_Comment H Hemolyzed code = 7146365147) specimen [Automated message] The system which generated this result transmitted reference range : <=0.034. The reference range was not used to interpret this result as normal/abnormal . ADILENE (test code = Reference (Normal) ADILENE) Range (defined by the 99th percentile reference limit): <= 0.034 ng/mL Note: Cardiac troponin begins to rise 3-4 hours after the onset of ischemia. Repeat in 4-6 hours if the sample was drawn within 3-4 hours of the onset of the symptom and found normal. Diagnosis of myocardial injury is made with acute changes in cTn concentrations with at least one serial sample above the 99th percentile upper reference limit (URL), taken together with the patient's clinical presentation. Biotin has been reported to cause a negative bias, interpret results relative to patient's use of biotin. Lab Interpretation Abnormal (test code = 04853-7) [facility]-10 22:26:26 Test Item Value Reference Range Interpretation Comments Height (test code = in 6890937682) Weight (test code = lbs 0680905649) Systolic BP (test code = mmHg 8693172243) Diastolic BP (test code mmHg = 3790305664) Heart Rate (test code = bpm 2839612510) BSA (test code = 2.10 m2 4763243481) LVOT stroke volume (test 58.00 cm3 code = 1009499579) EF(MOD-bp) (test code = 37.90 % 1778260158) EF(Teich) (test code = 42.20 % 6526304817) LVIDD (test code = 3.70 cm 5177387760) LV Systolic Volume (BP) 109.2 mL (test code = 5618850482) LVIDS (test code = 3.00 cm 2840654845) LV Diastolic Volume (BP) 175.9 mL (test code = 6888653259) IVS (test code = 1.20 cm 2670109235) LVPWD (test code = 1.21 cm 9874879223) LVOT diameter (test code 2.13 cm = 0409890292) FS (test code = 20 % 7647627456) MV Peak E Anh (test code 47.1 cm/s = 2127497534) MV Peak A Anh (test code 44.6 cm/s = 5598691486) E/A ratio (test code = ratio 3738941228) E wave decelartion time 0.45 s (test code = 4952293991) LA Volume Index (BP) 29.3 mL/m2 (test code = 3049212063) LA volume (BP) (test 61.5 mL code = 6138561041) LVOT peak anh (test code 84.6 cm/s = 8287028641) LVOT mn grad (test code mmHg = 1031848014) SV(MOD-bp) (test code = 66.70 mL 6050505173) LA size (test code = 5.7 cm 4533063846) LAV(MOD-sp2) (test code 63.40 mL = 9806934355) LAV(MOD-sp4) (test code 51.10 mL = 8286863700) Tapse (test code = 2.44 cm 5987168706) Ao peak anh (test code = 123.5 cm/s 3545719982) AV LVOT peak gradient mmHg (test code = 9597391376) LVOT peak VTI (test code 16.3 cm = 7858657758) AV area peak anh (test 2.4 cm2 code = 5485400956) ACS (test code = 1.94 cm 2486936214) LV V1 mean (test code = 52.00 cm/s 7875814166) Ao max PG (test code = 6.10 mm[Hg] 9853824477) MV Prop V (test code = 86.10 cm/s 9656420127) Ao root annulus (test 3.5 cm code = 1534236709) Ao root diam (test code 3.50 cm = 1296838184) AV peak gradient (test mmHg code = 7262496362) Aortic root (test code = 3.5 cm 1225680455) EF (test code = 38 % 5313897480) PW (test code = 1.21 cm 0.6-1.4 6279130272) EF - 2D (test code = 42.20 % 52189154) Left Ventricular Stroke 66.7 mL Volume by 2-D Biplane-MOD (test code = 2953966) Interventricular Septum 1.20 cm Diastolic Thickness by 2D (test code = 3486540) Radiology Study observation (narrative) (test code = 20183-9) ADILENE (test code = ADILENE) ?Left?Ventricle: Left ventricle size is normal. Normal wall thickness. Moderately reduced systolic function with a visually estimated EF of 40%. Unable to assess diastolic function due to arrhythmia. ?Left?Atrium: Left atrium size is normal. ?Mitral?Valve: Mild transvalvular regurgitation. ?Tricuspid?Valve: Insufficient tricuspid regurgitation jet to estimate RVSP. ?Pericardium: No pericardial effusion. Left VentricleLeft ventricle size is normal. Normal wall thickness. Moderately reduced systolic function with a visually estimated EF of 40%. Unable to assess diastolic function due to arrhythmia.Right VentricleRight ventricle size is normal. Normal systolic function.Left AtriumLeft atrium size is normal.Right AtriumRight atrium size is normal.IVC/SVCIVC diameter is less than or equal to 21 mm and decreases less than 50% during inspiration; therefore the estimated right atrial pressure is intermediate (~8 mmHg).Mitral ValveMitral valve structure is normal. Mild transvalvular regurgitation.Tricusp id ValveTricuspid valve structure is normal. Insufficient tricuspid regurgitation jet to estimate RVSP.Aortic ValveAortic valve structure is normal.Pulmonic ValveNot well visualized. Pulmonic valve is normal in structure and function.Ascending AortaAorta is normal in size.PericardiumThe pericardium is normal. No pericardial effusion.Study DetailsA complete echocardiogram was performed using 2D, color flow Doppler and spectral Doppler. 5 mL of Lumason ultrasound enhancing agent used. [facility] Area[facility] [id number] 17:36:46 Test Item Value Reference Interpretation Comments Range TROPONIN I (test 2.820 ng/mL See_Comment H Hemolyzed code = 8539571692) specimen [Automated message] The system which generated this result transmitted reference range : <=0.034. The reference range was not used to interpret this result as normal/abnormal . ADILENE (test code = Reference (Normal) ADILENE) Range (defined by the 99th percentile reference limit): <= 0.034 ng/mL Note: Cardiac troponin begins to rise 3-4 hours after the onset of ischemia. Repeat in 4-6 hours if the sample was drawn within 3-4 hours of the onset of the symptom and found normal. Diagnosis of myocardial injury is made with acute changes in cTn concentrations with at least one serial sample above the 99th percentile upper reference limit (URL), taken together with the patient's clinical presentation. Biotin has been reported to cause a negative bias, interpret results relative to patient's use of biotin. Lab Interpretation Abnormal (test code = 59224-0) [facility] [id number] 17:06:05 Test Item Value Reference Range Interpretation Comments APTT Patient (test code See_Comment H [Au tomated message] = 0713-2) The system [employer] generated this result transmitted ref erence range: 26 - 36 Seconds. The reference range was not used to int erpret this result as normal/abnormal . Lab Interpretation (test Abnormal code = 97907-4) [facility] AreaCBC WITH [id number] 09:42:31 Test Item Value Reference Range Interpretation Comments WBC (test code = See_Comment H [Automated 6690-2) message] The system which generated this result transmit gilberto reference range : 4.20 - 10.70 10*3/?L. The reference range was not used to interpret this result as normal/abnormal . RBC (test code = See_Comment L [Automated 789-8) message] The system which generated this result transmit gilberto reference range : 4.26 - 5.52 10*6/?L. The reference range was not used to interpret this result as normal/abnormal . HGB (test code = 7.9 g/dL 12.2-16.4 L 718-7) HCT (test code = 25.6 % 38.4-49.3 L 4544-3) MCV (test code = 98.1 fL 81.7-95.6 H 787-2) MCH (test code = 30.3 pg 26.1-32.7 785-6) MCHC (test code = 30.9 g/dL 31.2-35 L 786-4) RDW-SD (test code = 57.4 fL 38.5-51.6 H 62343-2) RDW-CV (test code = 16.1 % 12.1-15.4 H 788-0) PLT (test code = See_Comment [Automated 777-3) message] The system which generated this result transmit gilberto reference range : 150 - 328 10*3/ ?L. The reference range was not u sed to interpret th is result as normal/abnormal . MPV (test code = 10.5 fL 9.8-13 98966-7) NRBC/100 WBC (test See_Comment [Automat ed code = 0792733009) message] The system which generated this result transmit gilberto reference range : 0.0 - 10.0 /100 WBCs. The reference range was not used to interpret this result as normal/abnormal . NRBC x10^3 (test code See_Comment [Auto mated = 9782336765) message] The system which generated this result transmit gilberto reference range : 10*3/?L. The reference range was not used to interpret this result as normal/abnormal . GRAN MAT (NEUT) % 87.2 % (test code = 770-8) IMM GRAN % (test code 1.50 % = 8085389740) LYMPH % (test code = 5.9 % 736-9) MONO % (test code = 5.1 % 5905-5) EOS % (test code = 0.2 % 713-8) BASO % (test code = 0.1 % 706-2) GRAN MAT x10^3(ANC) 10.38 10*3/uL 1.99-6.95 H (test code = 7157904517) IMM GRAN x10^3 (test 0.18 10*3/uL 0-0.06 H code = 6498839273) LYMPH x10^3 (test code 0.70 10*3/uL 1.09-3.23 L = 731-0) MONO x10^3 (test code 0.61 10*3/uL 0.36-1.02 = 742-7) EOS x10^3 (test code = 0.06-0.53 L 711-2) BASO x10^3 (test code 0.01-0.09 = 704-7) Lab Interpretation Abnormal (test code = 26707-8) [facility] [id number] 09:27:32 Test Item Value Reference Interpretation Comments Range TROPONIN I (test 3.000 ng/mL See_Comment H [Automated code = 0662941894) message] The system which generated this result transmitted reference range : <=0.034. The reference range was not used to interpret this result as normal/abnormal . ADILENE (test code = Reference (Normal) ADILENE) Range (defined by the 99th percentile reference limit): <= 0.034 ng/mL Note: Cardiac troponin begins to rise 3-4 hours after the onset of ischemia. Repeat in 4-6 hours if the sample was drawn within 3-4 hours of the onset of the symptom and found normal. Diagnosis of myocardial injury is made with acute changes in cTn concentrations with at least one serial sample above the 99th percentile upper reference limit (URL), taken together with the patient's clinical presentation. Biotin has been reported to cause a negative bias, interpret results relative to patient's use of biotin. Lab Interpretation Abnormal (test code = 70221-6) [facility]. METABOLIC PANEL ([id number])2022-02-10 09:17:29 Test Item Value Reference Range Interpretation Comments NA (test code = 139 mmol/L 135-145 0879520910) K (test code = 3.9 mmol/L 3.5-5 0818205506) CL (test code = 114 mmol/L 98-108 H 4596646054) CO2 TOTAL (test code = 23 mmol/L 23-31 2874918754) AGAP (test code = 2-16 7509449937) BUN (test code = 42 mg/dL 7-23 H 7329156411) GLUCOSE (test code = 86 mg/dL 70-110 7670659487) CREATININE (test code = 1.29 mg/dL 0.6-1.25 H 6650704986) TOTAL BILI (test code = 0.6 mg/dL 0.1-1.9 8245805527) CALCIUM (test code = 8.2 mg/dL 8.6-10.6 L 2219742121) T PROTEIN (test code = 4.5 g/dL 6.3-8.2 L 5455414391) ALBUMIN (test code = 2.2 g/dL 3.5-5 L 8441265710) ALK PHOS (test code = 59 U/L 34-122 6695987858) ALTv (test code = 17 U/L 5-50 1742-6) AST(SGOT) (test code = 58 U/L 13-40 H 3062788191) eGFR (test code = mL/min/1.73m2 9905547199) ADILENE (test code = ADILENE) Association of Glomerular Filtration Rate (GFR) and Staging of Kidney Disease* + --+ --+ ------+| GFR (mL/min/1.73 m2) ?| With Kidney Damage ?| ?Without Kidney Damage+ --------+ --------+ +| ?>90 ?| ?Stage one ?| ? Normal ?+ ---+ ---+ -------+| ?60-89 ?| ?Stage two ?| ? Decreased GFR ? + --+ --+ ------+| ?30-59 ?| ?Stage three ?| ? Stage three ? + --+ --+ ------+| ?15-29 ?| ?Stage four ? | ? Stage four ?+ ---+ ---+ -------+| ?<15 (or dialysis) ? ?| ?Stage five ? | ? Stage five ?+ ---+ ---+ -------+ *Each stage assumes the associated GFR level has been in effect for at least three months. ?Stages 1 to 5, with or without kidney disease, indicate chronic kidney disease. Notes: Determination of stages one and two (with eGFR >59mL/min/1.73 m2) requires estimation of kidney damage for at least three months as defined by structural or functional abnormalities of the kidney, manifested by either:Pathological abnormalities or Markers of kidney damage (including abnormalities in the composition of the blood or urine or abnormalities in imaging tests). Lab Interpretation Abnormal (test code = 29836-7) [facility] 09:17:29 Test Item Value Reference Range Interpretation Comments MAGNESIUM (test code = 2077131384) 2.1 mg/dL 1.7-2.4 Lab Interpretation (test code = Normal 33162-9) [facility] [id number] 09:17:09 Test Item Value Reference Range Interpretation Comments APTT Patient (test code See_Comment H [Au tomated message] = 3173-2) The system whic h generated this result transmitted ref erence range: 26 - 36 Seconds. The reference range was not used to int erpret this result as normal/abnormal . Lab Interpretation (test Abnormal code = 70475-2) [facility] 20 + Lactic [id number] 07:50:00 Test Item Value Reference Range Interpretation Comments PH (test code = 2) 7.35-7.45 PCO2 (test code = See_Comment [Automate d 6570399330) message] The sy stem which generated this result transmitted reference range : 35 - 45 mmHg. The reference range was not used to interpret this result as normal/abnormal . PO2 (test code = See_Comment H [Automated 1009439998) message] The sy stem which generated this result transmitted reference range : 80 - 100 mmHg. The reference range was not used to interpret this result as normal/abnormal . HCO3 (test code = See_Comment [Automate d 5423217180) message] The sy stem which generated this result transmitted reference range : 22 - 26 mEq/L. The reference range was not used to interpret this result as normal/abnormal . BE (test code = See_Comment [Automated 9720856397) message] The sy stem which generated this result transmitted reference range : -3.0 - 3.0 mEq/ L. The reference r lisa was not used to interpret this result as normal/abnormal . THB (test code = 8.6 g/dL 13.5-18 L 5885673893) %O2HB (test code = 97.5 % 94-99 7572099147) %COHB ART (test code = 0.3 % 0-1.5 3252220766) %METHB ART (test code = 0.6 % 0.4-1.5 5437974298) VOL%O2 ART (test code = 12.1 % 15-23 L 2663751165) NA (test code = 138 mmol/L 135-145 3367941915) K+ (test code = 3.8 mmol/L 3.5-5 4589160360) AC CA IONZ (test code = 4.70 mg/dL 4.5-5.3 8988529254) GLUCOSE (test code = 92 mg/dL 70-110 9414188210) LACTIC ACID (test code 0.90 mmol/L 0.5-2.2 = 6754796621) Lab Interpretation Abnormal (test code = 09493-7) [facility], Unfractionated Heparin 2022-02-10 06:12:55 Test Item Value Reference Range Interpretation Comments Anti-Xa UFH (test code = See_Comment H [A utomated message] 3274-8) The system [employer] generated this result transmitted ref erence range: 0.30 - 0 .70 IU/mL. The refe rence range was not u sed to interpret this result as normal/abnor mal. Lab Interpretation (test Abnormal code = 61141-4) [facility] [id number] 00:05:44 Test Item Value Reference Range Interpretation Comments NT-proBNP (test code 20199 pg/mL See_Comment H [Autom ated = 6366268603) message] The system which generated this result transmitted reference range : <=450. The reference range was not used to interpret this result as normal/abnormal . ADILENE (test code = ADILENE) Biotin has been reported to cause a negative bias, interpret results relative to patient's use of biotin. Lab Interpretation Abnormal (test code = 13722-3) [facility] [id number] 23:53:19 Test Item Value Reference Interpretation Comments Range TROPONIN I (test 3.400 ng/mL See_Comment H [Automated code = 9545368986) message] The system which generated this result transmitted reference range : <=0.034. The reference range was not used to interpret this result as normal/abnormal . ADILENE (test code = Reference (Normal) ADILENE) Range (defined by the 99th percentile reference limit): <= 0.034 ng/mL Note: Cardiac troponin begins to rise 3-4 hours after the onset of ischemia. Repeat in 4-6 hours if the sample was drawn within 3-4 hours of the onset of the symptom and found normal. Diagnosis of myocardial injury is made with acute changes in cTn concentrations with at least one serial sample above the 99th percentile upper reference limit (URL), taken together with the patient's clinical presentation. Biotin has been reported to cause a negative bias, interpret results relative to patient's use of biotin. Lab Interpretation Abnormal (test code = 95068-5) [facility]. METABOLIC PANEL ([id number])2022-02-09 23:40:58 Test Item Value Reference Range Interpretation Comments NA (test code = 140 mmol/L 135-145 9170688131) K (test code = 4.2 mmol/L 3.5-5 7414519698) CL (test code = 113 mmol/L 98-108 H 9643896632) CO2 TOTAL (test code = 24 mmol/L 23-31 2336584220) AGAP (test code = 2-16 8883145225) BUN (test code = 41 mg/dL 7-23 H 0623244065) GLUCOSE (test code = 88 mg/dL 70-110 6734513664) CREATININE (test code = 1.09 mg/dL 0.6-1.25 3607830681) TOTAL BILI (test code = 0.5 mg/dL 0.1-1.2 4979053300) CALCIUM (test code = 8.6 mg/dL 8.6-10.6 3620943397) T PROTEIN (test code = 4.5 g/dL 6.3-8.2 L 6359105480) ALBUMIN (test code = 2.4 g/dL 3.5-5 L 4749477103) ALK PHOS (test code = 71 U/L 34-122 3732524328) ALTv (test code = 19 U/L 5-50 1742-6) AST(SGOT) (test code = 26 U/L 13-40 7625904496) eGFR (test code = mL/min/1.73m2 0919736792) ADILENE (test code = ADILENE) Association of Glomerular Filtration Rate (GFR) and Staging of Kidney Disease* + --+ --+ ------+| GFR (mL/min/1.73 m2) ?| With Kidney Damage ?| ?Without Kidney Damage+ --------+ --------+ +| ?>90 ?| ?Stage one ?| ? Normal ?+ ---+ ---+ -------+| ?60-89 ?| ?Stage two ?| ? Decreased GFR ? + --+ --+ ------+| ?30-59 ?| ?Stage three ?| ? Stage three ? + --+ --+ ------+| ?15-29 ?| ?Stage four ? | ? Stage four ?+ ---+ ---+ -------+| ?<15 (or dialysis) ? ?| ?Stage five ? | ? Stage five ?+ ---+ ---+ -------+ *Each stage assumes the associated GFR level has been in effect for at least three months. ?Stages 1 to 5, with or without kidney disease, indicate chronic kidney disease. Notes: Determination of stages one and two (with eGFR >59mL/min/1.73 m2) requires estimation of kidney damage for at least three months as defined by structural or functional abnormalities of the kidney, manifested by either:Pathological abnormalities or Markers of kidney damage (including abnormalities in the composition of the blood or urine or abnormalities in imaging tests). Lab Interpretation Abnormal (test code = 97638-8) [facility]20[facility] 23:40:38 Test Item Value Reference Range Interpretation Comments LIPASE (test code = 0709578522) 160 U/L 0-220 Lab Interpretation (test code = Normal 66342-1) [facility] [id number] 23:39:37 Test Item Value Reference Range Interpretation Comments APTT Patient (test See_Comment [Automat ed code = 3173-2) message] The system which generated this result transmitted reference range : 23 - 38 Seconds . The reference range was not used to interpr et this result as normal/abnormal . ADILENE (test code = ADILENE) The [facility] patient population mean normal value for aPTT is 30 seconds. Lab Interpretation Normal (test code = 83786-0) [facility] [facility] / [id number] 23:37:36 Test Item Value Reference Range Interpretation Comments PROTIME PATIENT (test See_Comment H [Auto mated message] code = 5964-2) The system wh ich generated this result transmitted ref erence range: 12.0 - 1 4.7 Seconds. The reference range was not used to int erpret this result as normal/abnormal . INR (test code = 6301-6) Nor mal INR <1.1; Warfarin Therap eutic range 2.0 to 3. 0 or 2.5 to 3.5, dep ending upon the indica tions. Lab Interpretation (test Abnormal code = 90524-3) [facility] WITH [id number] 23:30:38 Test Item Value Reference Range Interpretation Comments WBC (test code = See_Comment H [Automated 6690-2) message] The system which generated this result transmit gilberto reference range : 4.20 - 10.70 10*3/?L. The reference range was not used to interpret this result as normal/abnormal . RBC (test code = See_Comment L [Automated 789-8) message] The system which generated this result transmit gilberto reference range : 4.26 - 5.52 10*6/?L. The reference range was not used to interpret this result as normal/abnormal . HGB (test code = 8.8 g/dL 12.2-16.4 L 718-7) HCT (test code = 28.4 % 38.4-49.3 L 4544-3) MCV (test code = 95.9 fL 81.7-95.6 H 787-2) MCH (test code = 29.7 pg 26.1-32.7 785-6) MCHC (test code = 31.0 g/dL 31.2-35 L 786-4) RDW-SD (test code = 55.3 fL 38.5-51.6 H 06357-3) RDW-CV (test code = 15.9 % 12.1-15.4 H 788-0) PLT (test code = See_Comment [Automated 777-3) message] The system which generated this result transmit gilberto reference range : 150 - 328 10*3/ ?L. The reference range was not u sed to interpret th is result as normal/abnormal . MPV (test code = 10.8 fL 9.8-13 16035-3) NRBC/100 WBC (test See_Comment [Automat ed code = 1799644645) message] The system which generated this result transmit gilberto reference range : 0.0 - 10.0 /100 WBCs. The reference range was not used to interpret this result as normal/abnormal . NRBC x10^3 (test code See_Comment [Auto mated = 2843165002) message] The system which generated this result transmit gilberto reference range : 10*3/?L. The reference range was not used to interpret this result as normal/abnormal . GRAN MAT (NEUT) % 88.9 % (test code = 770-8) IMM GRAN % (test code 0.90 % = 0996808818) LYMPH % (test code = 5.2 % 736-9) MONO % (test code = 4.8 % 5905-5) EOS % (test code = 0.1 % 713-8) BASO % (test code = 0.1 % 706-2) GRAN MAT x10^3(ANC) 12.55 10*3/uL 1.99-6.95 H (test code = 8857851098) IMM GRAN x10^3 (test 0.12 10*3/uL 0-0.06 H code = 8992550718) LYMPH x10^3 (test code 0.73 10*3/uL 1.09-3.23 L = 731-0) MONO x10^3 (test code 0.67 10*3/uL 0.36-1.02 = 742-7) EOS x10^3 (test code = 0.06-0.53 L 711-2) BASO x10^3 (test code 0.01-0.09 = 704-7) Lab Interpretation Abnormal (test code = 91370-2) [facility] 20 + Lactic [id number] 23:03:37 Test Item Value Reference Range Interpretation Comments PH (test code = 2) 7.35-7.45 H PCO2 (test code = See_Comment L [Automate d 5521064796) message] The sy stem which generated this result transmitted reference range : 35 - 45 mmHg. The reference range was not used to interpret this result as normal/abnormal . PO2 (test code = See_Comment L [Automated 3976472941) message] The sy stem which generated this result transmitted reference range : 80 - 100 mmHg. The reference range was not used to interpret this result as normal/abnormal . HCO3 (test code = See_Comment L [Automate d 8536584089) message] The sy stem which generated this result transmitted reference range : 22 - 26 mEq/L. The reference range was not used to interpret this result as normal/abnormal . BE (test code = See_Comment [Automated 5814310905) message] The sy stem which generated this result transmitted reference range : -3.0 - 3.0 mEq/ L. The reference r lisa was not used to interpret this result as normal/abnormal . THB (test code = 9.3 g/dL 13.5-18 L 2781596244) %O2HB (test code = 95.6 % 94-99 2969983460) %COHB ART (test code = 0.3 % 0-1.5 1820392281) %METHB ART (test code = 0.3 % 0.4-1.5 L 2352243223) VOL%O2 ART (test code = 12.6 % 15-23 L 6662777352) NA (test code = 138 mmol/L 135-145 2506214596) K+ (test code = 4.0 mmol/L 3.5-5 2586051483) AC CA IONZ (test code = 5.00 mg/dL 4.5-5.3 9026971815) GLUCOSE (test code = 87 mg/dL 70-110 5228693730) LACTIC ACID (test code 0.92 mmol/L 0.5-2.2 = 5567944676) Lab Interpretation Abnormal (test code = 37583-3) [facility] [id number] 11:02:00 Test Item Value Reference Range Interpretation Comments GLUCOSE BEDSIDE (test 80 MG/DL 70-110 [facility] by certified code = GLUBED) 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 [facility] COVID 19 Asymptomatic IH [id number] 09:57:00 Test Item Value Reference Range Interpretation Comments COVID 19 Asymptomatic Negative Negative A nega tive result is IH AG (test code = presumpti ve and should COVNONPUIAG) be confirmedwit h an FDA authorized mole cular assay, if neces sherrie forpatient mitch gement.A positive result does not rule out co-inf ections withother patho gens.This test detects brannon th viable (live) and non-viable,SARS -CoV, and SARS-CoV-2. Anselmo t performance dep ends on theamount of vi franky (antigen) in th e sample.This anselmo t has not been FDA cleare d or approved; the t est hasbeen authori zed by FDA under an Em ergency Use Authorizati on(EUA) for use by labo ratories certified under the CLIA thatmeet the requirements to perform moderate, high or waivedcomplexit y tests. CBC W/AUTO [id number] 07:47:00 Test Item Value Reference Range Interpretation Comments WHITE BLOOD CELL (test code = 15.8 x10 3/uL 4.5-11.0 H WBC) RED BLOOD CELL (test code = 2.84 x10 6/uL 4.00-5.60 L RBC) HEMOGLOBIN (test code = HGB) 8.7 g/dL 12.5-16.9 L HEMATOCRIT (test code = HCT) 27.9 % 37.5-50.7 L MEAN CELL VOLUME (test code = 98.2 fL 81.0-99.0 N MCV) MEAN CELL HGB (test code = 30.6 pg 27.0-33.0 N MCH) MEAN CELL HGB CONCETRATION 31.2 g/dL 33.0-37.0 L (test code = MCHC) RED CELL DISTRIBUTION WIDTH CV 15.9 % 11.5-14.5 H (test code = RDW) PLATELET COUNT (test code = 341 x10 3/uL 150-400 N PLT) NEUTROPHIL % (test code = NT%) 86.2 % 56.0-77.0 H LYMPHOCYTE % (test code = LY%) 6.8 % 14.0-32.0 L NEUTROPHIL # (test code = NT#) 13.62 x10 3/uL 2.0-7.6 H LYMPHOCYTE # (test code = LY#) 1.08 x10 3/uL 1.0-3.8 N MANUAL DIFF REQUIRED (test NO code = MDIFF) RED CELL DISTRIBUTION WIDTH SD 57.3 fL 37.0-54.0 H (test code = RDW-SD) MEAN PLATELET VOLUME (test 10.9 fL 7.0-9.0 H code = MPV) IMMATURE GRANULOCYTE % (test 1.3 % 0.0-2.0 N code = IG%) MONOCYTE % (test code = MO%) 5.6 % 4.8-9.0 N EOSINOPHIL % (test code = EO%) 0.0 % 0.3-3.7 L BASOPHIL % (test code = BA%) 0.1 % 0.0-2.0 N NUCLEATED RBC % (test code = 0.2 % 0-0 H NRBC%) IMMATURE GRANULOCYTE # (test 0.21 x10 3/uL 0.00-0.03 H code = IG#) MONOCYTE # (test code = MO#) 0.88 x10 3/uL 0.1-0.8 H EOSINOPHIL # (test code = EO#) 0.00 x10 3/uL 0.0-0.2 N BASOPHIL # (test code = BA#) 0.01 x10 3/uL 0.0-0.2 N NUCLEATED RBC # (test code = 0.03 x10 3/uL 0.0-0.1 N NRBC#) GLUCOSE [id number] 05:35:00 Test Item Value Reference Range Interpretation Comments GLUCOSE BEDSIDE (test 98 MG/DL 70-110 N Perfor med by certified code = GLUBED) 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 [facility] GLUCOSE [id number] 19:43:00 Test Item Value Reference Range Interpretation Comments GLUCOSE BEDSIDE (test 218 MG/DL 70-110 H Perfor med by certified code = GLUBED) 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 [facility] GLUCOSE [id number] 15:49:00 Test Item Value Reference Range Interpretation Comments GLUCOSE BEDSIDE (test 158 MG/DL 70-110 H Perfor med by certified code = GLUBED) 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 [facility] CBC W/AUTO [id number] 12:27:00 Test Item Value Reference Range Interpretation Comments WHITE BLOOD CELL (test code = 17.2 x10 3/uL 4.5-11.0 H WBC) RED BLOOD CELL (test code = 3.08 x10 6/uL 4.00-5.60 L RBC) HEMOGLOBIN (test code = HGB) 9.2 g/dL 12.5-16.9 L HEMATOCRIT (test code = HCT) 29.8 % 37.5-50.7 L MEAN CELL VOLUME (test code = 96.8 fL 81.0-99.0 N MCV) MEAN CELL HGB (test code = 29.9 pg 27.0-33.0 N MCH) MEAN CELL HGB CONCETRATION 30.9 g/dL 33.0-37.0 L (test code = MCHC) RED CELL DISTRIBUTION WIDTH CV 16.1 % 11.5-14.5 H (test code = RDW) RED CELL DISTRIBUTION WIDTH SD 57.1 fL 37.0-54.0 H (test code = RDW-SD) PLATELET COUNT (test code = 382 x10 3/uL 150-400 N PLT) MEAN PLATELET VOLUME (test 10.6 fL 7.0-9.0 H code = MPV) NEUTROPHIL % (test code = NT%) 92.3 % 56.0-77.0 H IMMATURE GRANULOCYTE % (test 1.0 % 0.0-2.0 N code = IG%) LYMPHOCYTE % (test code = LY%) 3.0 % 14.0-32.0 L MONOCYTE % (test code = MO%) 3.6 % 4.8-9.0 L EOSINOPHIL % (test code = EO%) 0.0 % 0.3-3.7 L BASOPHIL % (test code = BA%) 0.1 % 0.0-2.0 N NUCLEATED RBC % (test code = 0.1 % 0-0 H NRBC%) NEUTROPHIL # (test code = NT#) 15.85 x10 3/uL 2.0-7.6 H IMMATURE GRANULOCYTE # (test 0.18 x10 3/uL 0.00-0.03 H code = IG#) LYMPHOCYTE # (test code = LY#) 0.52 x10 3/uL 1.0-3.8 L MONOCYTE # (test code = MO#) 0.62 x10 3/uL 0.1-0.8 N EOSINOPHIL # (test code = EO#) 0.00 x10 3/uL 0.0-0.2 N BASOPHIL # (test code = BA#) 0.01 x10 3/uL 0.0-0.2 N NUCLEATED RBC # (test code = 0.02 x10 3/uL 0.0-0.1 N NRBC#) MANUAL DIFF REQUIRED (test NO code = MDIFF) GLUCOSE [id number] 11:34:00 Test Item Value Reference Range Interpretation Comments GLUCOSE BEDSIDE (test 119 MG/DL 70-110 H Perfor med by certified code = GLUBED) 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 [facility] GLUCOSE [id number] 07:34:00 Test Item Value Reference Range Interpretation Comments GLUCOSE BEDSIDE (test 99 MG/DL 70-110 N Perfor med by certified code = GLUBED) 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 [facility] GLUCOSE [id number] 04:56:00 Test Item Value Reference Range Interpretation Comments GLUCOSE BEDSIDE (test 120 MG/DL 70-110 H Perfor med by certified code = GLUBED) 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 [facility] GLUCOSE [id number] 20:51:00 Test Item Value Reference Range Interpretation Comments GLUCOSE BEDSIDE (test 108 MG/DL 70-110 N Perfor med by certified code = GLUBED) 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 [facility] GLUCOSE [id number] 15:59:00 Test Item Value Reference Range Interpretation Comments GLUCOSE BEDSIDE (test 78 MG/DL 70-110 N Perfor med by certified code = GLUBED) 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 [facility] GLUCOSE [id number] 10:48:00 Test Item Value Reference Range Interpretation Comments GLUCOSE BEDSIDE (test 111 MG/DL 70-110 H Perfor med by certified code = GLUBED) 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 [facility] GLUCOSE [id number] 08:01:00 Test Item Value Reference Range Interpretation Comments GLUCOSE BEDSIDE (test 78 MG/DL 70-110 N Perfor med by certified code = GLUBED) 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 [facility] BASIC METABOLIC [id number] 07:25:00 Test Item Value Reference Range Interpretation Comments SODIUM (test code = NA) 140 mEq/L 134-147 N POTASSIUM (test code = 4.2 mEq/L 3.4-5.0 N K) CHLORIDE (test code = 111 mEq/L 100-108 H CL) CARBON DIOXIDE (test 21 mEq/l 21-33 N code = CO2) ANION GAP (test code = 12 0-20 N GAP) GLUCOSE (test code = 86 mg/dL 70-110 GLU) BLOOD UREA NITROGEN 27 mg/dL 7-18 H (test code = BUN) GLOMERULAR FILTRATION 64.6 70-80 L Units of measure = RATE (test code = GFR) ml/mi n/1.73 m2 CREATININE (test code = 1.1 mg/dL 0.6-1.3 N CREAT) CALCIUM (test code = 8.6 mg/dL 8.0-10.5 N CA) [id number] 07:25:00 Test Item Value Reference Range Interpretation Comments PHOSPHOROUS (test code = PHOS) 3.6 MG/DL 2.5-4.9 N [id number] 07:25:00 Test Item Value Reference Range Interpretation Comments MAGNESIUM (test code = MAG) 1.93 mg/dL 1.80-2.40 N CALCIUM [id number] 07:25:00 Test Item Value Reference Range Interpretation Comments CALCIUM IONIZED (test code = LYLA) 1.19 MMOL/L 1.12-1.32 N CBC W/AUTO [id number] 07:24:00 Test Item Value Reference Range Interpretation Comments WHITE BLOOD CELL (test code = 15.4 x10 3/uL 4.5-11.0 H WBC) RED BLOOD CELL (test code = 3.09 x10 6/uL 4.00-5.60 L RBC) HEMOGLOBIN (test code = HGB) 9.3 g/dL 12.5-16.9 L HEMATOCRIT (test code = HCT) 30.1 % 37.5-50.7 L MEAN CELL VOLUME (test code = 97.4 fL 81.0-99.0 N MCV) MEAN CELL HGB (test code = 30.1 pg 27.0-33.0 N MCH) MEAN CELL HGB CONCETRATION 30.9 g/dL 33.0-37.0 L (test code = MCHC) RED CELL DISTRIBUTION WIDTH CV 16.0 % 11.5-14.5 H (test code = RDW) PLATELET COUNT (test code = 363 x10 3/uL 150-400 N PLT) NEUTROPHIL % (test code = NT%) 87.1 % 56.0-77.0 H LYMPHOCYTE % (test code = LY%) 5.9 % 14.0-32.0 L NEUTROPHIL # (test code = NT#) 13.38 x10 3/uL 2.0-7.6 H LYMPHOCYTE # (test code = LY#) 0.91 x10 3/uL 1.0-3.8 L MANUAL DIFF REQUIRED (test NO code = MDIFF) RED CELL DISTRIBUTION WIDTH SD 56.3 fL 37.0-54.0 H (test code = RDW-SD) MEAN PLATELET VOLUME (test 11.0 fL 7.0-9.0 H code = MPV) IMMATURE GRANULOCYTE % (test 1.4 % 0.0-2.0 N code = IG%) MONOCYTE % (test code = MO%) 5.5 % 4.8-9.0 N EOSINOPHIL % (test code = EO%) 0.0 % 0.3-3.7 L BASOPHIL % (test code = BA%) 0.1 % 0.0-2.0 N NUCLEATED RBC % (test code = 0.1 % 0-0 H NRBC%) IMMATURE GRANULOCYTE # (test 0.21 x10 3/uL 0.00-0.03 H code = IG#) MONOCYTE # (test code = MO#) 0.84 x10 3/uL 0.1-0.8 H EOSINOPHIL # (test code = EO#) 0.00 x10 3/uL 0.0-0.2 N BASOPHIL # (test code = BA#) 0.02 x10 3/uL 0.0-0.2 N NUCLEATED RBC # (test code = 0.02 x10 3/uL 0.0-0.1 N NRBC#) GLUCOSE [id number] 21:05:00 Test Item Value Reference Range Interpretation Comments GLUCOSE BEDSIDE (test 136 MG/DL 70-110 H Perfor med by certified code = GLUBED) 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 [facility] GLUCOSE [id number] 16:15:00 Test Item Value Reference Range Interpretation Comments GLUCOSE BEDSIDE (test 118 MG/DL 70-110 H Perfor med by certified code = GLUBED) 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 [facility] GLUCOSE [id number] 14:00:00 Test Item Value Reference Range Interpretation Comments GLUCOSE BEDSIDE (test 110 MG/DL 70-110 N Perfor med by certified code = GLUBED) 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 [facility] GLUCOSE [id number] 11:22:00 Test Item Value Reference Range Interpretation Comments GLUCOSE BEDSIDE (test 146 MG/DL 70-110 H Perfor med by certified code = GLUBED) 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 [facility] BASIC METABOLIC [id number] 05:37:00 Test Item Value Reference Range Interpretation Comments SODIUM (test code = NA) 140 mEq/L 134-147 N POTASSIUM (test code = 4.5 mEq/L 3.4-5.0 N K) CHLORIDE (test code = 112 mEq/L 100-108 H CL) CARBON DIOXIDE (test 23 mEq/l 21-33 N code = CO2) ANION GAP (test code = 10 0-20 N GAP) GLUCOSE (test code = 125 mg/dL 70-110 H GLU) BLOOD UREA NITROGEN 36 mg/dL 7-18 H (test code = BUN) GLOMERULAR FILTRATION 58.4 70-80 L Units of measure = RATE (test code = GFR) ml/mi n/1.73 m2 CREATININE (test code = 1.2 mg/dL 0.6-1.3 N CREAT) CALCIUM (test code = 8.4 mg/dL 8.0-10.5 N CA) [id number] 05:37:00 Test Item Value Reference Range Interpretation Comments PHOSPHOROUS (test code = PHOS) 4.0 MG/DL 2.5-4.9 N [id number] 05:37:00 Test Item Value Reference Range Interpretation Comments MAGNESIUM (test code = MAG) 1.90 mg/dL 1.80-2.40 N CALCIUM [id number] 05:37:00 Test Item Value Reference Range Interpretation Comments CALCIUM IONIZED (test code = LYLA) 1.25 MMOL/L 1.12-1.32 N CBC W/AUTO [id number] 05:01:00 Test Item Value Reference Range Interpretation Comments WHITE BLOOD CELL (test code = 15.0 x10 3/uL 4.5-11.0 H WBC) RED BLOOD CELL (test code = 3.12 x10 6/uL 4.00-5.60 L RBC) HEMOGLOBIN (test code = HGB) 9.3 g/dL 12.5-16.9 L HEMATOCRIT (test code = HCT) 29.8 % 37.5-50.7 L MEAN CELL VOLUME (test code = 95.5 fL 81.0-99.0 N MCV) MEAN CELL HGB (test code = 29.8 pg 27.0-33.0 N MCH) MEAN CELL HGB CONCETRATION 31.2 g/dL 33.0-37.0 L (test code = MCHC) RED CELL DISTRIBUTION WIDTH CV 16.1 % 11.5-14.5 H (test code = RDW) RED CELL DISTRIBUTION WIDTH SD 55.5 fL 37.0-54.0 H (test code = RDW-SD) PLATELET COUNT (test code = 323 x10 3/uL 150-400 N PLT) MEAN PLATELET VOLUME (test 10.8 fL 7.0-9.0 H code = MPV) NEUTROPHIL % (test code = NT%) 92.6 % 56.0-77.0 H IMMATURE GRANULOCYTE % (test 1.5 % 0.0-2.0 N code = IG%) LYMPHOCYTE % (test code = LY%) 3.4 % 14.0-32.0 L MONOCYTE % (test code = MO%) 2.4 % 4.8-9.0 L EOSINOPHIL % (test code = EO%) 0.0 % 0.3-3.7 L BASOPHIL % (test code = BA%) 0.1 % 0.0-2.0 N NUCLEATED RBC % (test code = 0.0 % 0-0 N NRBC%) NEUTROPHIL # (test code = NT#) 13.92 x10 3/uL 2.0-7.6 H IMMATURE GRANULOCYTE # (test 0.22 x10 3/uL 0.00-0.03 H code = IG#) LYMPHOCYTE # (test code = LY#) 0.51 x10 3/uL 1.0-3.8 L MONOCYTE # (test code = MO#) 0.36 x10 3/uL 0.1-0.8 N EOSINOPHIL # (test code = EO#) 0.00 x10 3/uL 0.0-0.2 N BASOPHIL # (test code = BA#) 0.02 x10 3/uL 0.0-0.2 N NUCLEATED RBC # (test code = 0.00 x10 3/uL 0.0-0.1 N NRBC#) MANUAL DIFF REQUIRED (test NO code = MDIFF) - XR SWLW FUNC W/C [id number] 00:00:00 [facility]ARC[facility]INO ERASMO : 1940 Sex: MFAX: Tyrone Laird MD [phone] [place]: St: ADM FAX: Vinny Rosenthal MD [phone] FAX: Yaa Sifuentes DO [phone] Name: AMADOU MARCELINO ERASMO [facility] [place] : 1940 Age/S: 81/M [address] [place] [address] Unit #: [id number] Loc: G.[address] [place] [id number] Phys: Tyrone Laird MD Acct: [id number] Dis Date: Status: ADM IN PHONE #: [phone] Exam Date: 02/06/2022 1207 FAX #: [phone] Reason: TO ADVANCE FROM NECTAR THICK TO THIN LIQUIDS EXAMS: CPT CODE: [id number] XR SWLW [facility] W/C V 91070 PROCEDURE INFORMATION: Exam: FL Swallowing Function with Cine or Video Exam date and time: 02/06/2022 11:30 AM Age: 81 years old Clinical indication: Choking sensation; Additional info: To advance from nectar thick to thin liquids TECHNIQUE: Imaging protocol: Swallowing function, with cineradiography/ videoradiograph. Guided with fluoroscopy. Exam supervised by facility personnel. Dynamic fluoroscopy assessment ofthe swallowing function was performed by the Speech Pathologist. The Radiologist WAS present in [facility] and performed the fluoroscopy portion of the study. Oral contrast of multiple consistencies (nec tar, thin and barium coated cracker) were administered using a straw. COMPARISON: CR XR CHEST 1V 02/05/2022 5:44 AM RADIATION DOSE METRICS: Fluoroscopy time (seconds): seconds= 111 Number of fluoro spotimages: images= 8 Reference air kerma (ARNAUD): 5.6 mGy FINDINGS: Assistants: None. Business Quality Assurance Analyst: Unremarkableother than moderate mid cervical spondylosis. Procedure summary: Normal swallowing with solids and liquids. No penetration or aspiration. IMPRESSION: Unremarkable swallowing study. Please refer to the final Speech Pathology report for complete description. at 1226 Reported and signed by: Cyril Posey M.D. CC: Tyrone Laird MD; Vinny Waggoner MD; Yaa Mcclain DO Technologist: RT Alicia(Tomás) Trnscrd Date/Time/By: 02/06/2022 (0836) : By: [email or web address] Orig Print D/T: S: 02/06/2022 (1036) PAGE 1 Signed ReportGLUCOSE [id number] 21:35:00 Test Item Value Reference Range Interpretation Comments GLUCOSE BEDSIDE (test 121 MG/DL 70-110 H Perfor med by certified code = GLUBED) 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 [facility] GLUCOSE [id number] 16:52:00 Test Item Value Reference Range Interpretation Comments GLUCOSE BEDSIDE (test 93 MG/DL 70-110 N Perfor med by certified code = GLUBED) 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 [facility] GLUCOSE [id number] 11:32:00 Test Item Value Reference Range Interpretation Comments GLUCOSE BEDSIDE (test 113 MG/DL 70-110 H Perfor med by certified code = GLUBED) 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 [facility] BASIC METABOLIC [id number] 06:28:00 Test Item Value Reference Range Interpretation Comments SODIUM (test code = NA) 143 mEq/L 134-147 N POTASSIUM (test code = 4.1 mEq/L 3.4-5.0 N K) CHLORIDE (test code = 115 mEq/L 100-108 H CL) CARBON DIOXIDE (test 21 mEq/l 21-33 N code = CO2) ANION GAP (test code = 11 0-20 N GAP) GLUCOSE (test code = 116 mg/dL 70-110 H GLU) BLOOD UREA NITROGEN 30 mg/dL 7-18 H (test code = BUN) GLOMERULAR FILTRATION 64.6 70-80 L Units of measure = RATE (test code = GFR) ml/mi n/1.73 m2 CREATININE (test code = 1.1 mg/dL 0.6-1.3 N CREAT) CALCIUM (test code = 8.1 mg/dL 8.0-10.5 N CA) [id number] 06:28:00 Test Item Value Reference Range Interpretation Comments PHOSPHOROUS (test code = PHOS) 3.3 MG/DL 2.5-4.9 N [id number] 06:28:00 Test Item Value Reference Range Interpretation Comments MAGNESIUM (test code = MAG) 1.92 mg/dL 1.80-2.40 N CALCIUM [id number] 06:28:00 Test Item Value Reference Range Interpretation Comments CALCIUM IONIZED (test code = LYLA) 1.19 MMOL/L 1.12-1.32 N CBC W/AUTO [id number] 05:30:00 Test Item Value Reference Range Interpretation Comments WHITE BLOOD CELL (test code = 10.6 x10 3/uL 4.5-11.0 N WBC) RED BLOOD CELL (test code = 2.85 x10 6/uL 4.00-5.60 L RBC) HEMOGLOBIN (test code = HGB) 8.6 g/dL 12.5-16.9 L HEMATOCRIT (test code = HCT) 27.3 % 37.5-50.7 L MEAN CELL VOLUME (test code = 95.8 fL 81.0-99.0 N MCV) MEAN CELL HGB (test code = MCH) 30.2 pg 27.0-33.0 N MEAN CELL HGB CONCETRATION 31.5 g/dL 33.0-37.0 L (test code = MCHC) RED CELL DISTRIBUTION WIDTH CV 16.3 % 11.5-14.5 H (test code = RDW) RED CELL DISTRIBUTION WIDTH SD 57.1 fL 37.0-54.0 H (test code = RDW-SD) PLATELET COUNT (test code = 271 x10 3/uL 150-400 N PLT) MEAN PLATELET VOLUME (test code 10.8 fL 7.0-9.0 H = MPV) NEUTROPHIL % (test code = NT%) 86.1 % 56.0-77.0 H IMMATURE GRANULOCYTE % (test 1.8 % 0.0-2.0 N code = IG%) LYMPHOCYTE % (test code = LY%) 7.5 % 14.0-32.0 L MONOCYTE % (test code = MO%) 4.5 % 4.8-9.0 L EOSINOPHIL % (test code = EO%) 0.0 % 0.3-3.7 L BASOPHIL % (test code = BA%) 0.1 % 0.0-2.0 N NUCLEATED RBC % (test code = 0.2 % 0-0 H NRBC%) NEUTROPHIL # (test code = NT#) 9.12 x10 3/uL 2.0-7.6 H IMMATURE GRANULOCYTE # (test 0.19 x10 3/uL 0.00-0.03 H code = IG#) LYMPHOCYTE # (test code = LY#) 0.79 x10 3/uL 1.0-3.8 L MONOCYTE # (test code = MO#) 0.48 x10 3/uL 0.1-0.8 N EOSINOPHIL # (test code = EO#) 0.00 x10 3/uL 0.0-0.2 N BASOPHIL # (test code = BA#) 0.01 x10 3/uL 0.0-0.2 N NUCLEATED RBC # (test code = 0.02 x10 3/uL 0.0-0.1 N NRBC#) MANUAL DIFF REQUIRED (test code NO = MDIFF) - XR CHEST 1 [id number] 00:00:00 [facility] : 1940 Sex: M FAX: Susanne Holliday [place]: [address]: [facility] FAX: Vinny Rosenthal MD [phone] FAX: Yaa Sifuentes DO [phone] Name: AMADOU MARCELINO [facility] : 1940 Age/S: 81/M [address] [place] [address] Unit #: [id number] Loc: G.[address] [place] [address] Phys: Susanne Holliday Acct: [id number] Dis Date: Status: ADM IN PHONE #: [phone] Exam Date: 02/05/2022641 FAX #: [phone] Reason: follow pleural effsuions. EXAMS: CPT CODE: [id number] XR CHEST 1 V [id number] PROCEDURE INFORMATION: Exam: XR Chest Exam dateand time: 02/05/2022 5:44 AM Age: 81 years old Clinical indication: Other: Follow pleural effsuions. TECHNIQUE: Imaging protocol: Radiologic exam of the chest. Views: 1 view. COMPARISON: CR XR CHEST 1V 02/04/2022 7:00 AM FINDINGS: Lungs: See "Heart/Mediastinum" finding. Pleural spaces: Interval development of hazy shadowing is seen in the right lower hemithorax consistent with small right pleural effusion layering posteriorly. Heart/Mediastinum: The cardiac silhouette is enlarged with slight pulmonary vascular redistribution to the upper lobes which is new from previous. Bones/joints: Unremarkable. IMPRESSION: 1. Interval development of congestive cardiac failure with right pleural effusion. 2. No change in size of the left pleural effusion. at 0754 Reported and signed by: Lizandro Chester M.D. CC: Susanne Holliday;Vinny Waggoner MD; Yaa Mcclain DO Technologist: Noreen Hale, RT(R) Trnscrd Date/Time/By: 02/05/2022 (0754) : By: [email or web address] Orig Print D/T: S: 02/05/2022 (075) PAGE 1 Signed ReportGLUCOSE [id number] 20:45:00 Test Item Value Reference Range Interpretation Comments GLUCOSE BEDSIDE (test 159 MG/DL 70-110 H [facility] med by certified code = GLUBED) 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 [facility] GLUCOSE [id number] 17:21:00 Test Item Value Reference Range Interpretation Comments GLUCOSE BEDSIDE (test 129 MG/DL 70-110 H [facility] med by certified code = GLUBED) 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 [facility] GLUCOSE [id number] 11:31:00 Test Item Value Reference Range Interpretation Comments GLUCOSE BEDSIDE (test 112 MG/DL 70-110 H [facility] med by certified code = GLUBED) 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 [facility] COMPREHENSIVE METABOLIC [id number] 05:51:00 Test Item Value Reference Range Interpretation Comments SODIUM (test code = NA) 148 mEq/L 134-147 H POTASSIUM (test code = 4.5 mEq/L 3.4-5.0 N K) CHLORIDE (test code = 117 mEq/L 100-108 H CL) CARBON DIOXIDE (test 21 mEq/l 21-33 N code = CO2) ANION GAP (test code = 14 0-20 N GAP) GLUCOSE (test code = 126 mg/dL 70-110 H GLU) BLOOD UREA NITROGEN 37 mg/dL 7-18 H (test code = BUN) GLOMERULAR FILTRATION 72.1 70-80 N Units of measure = RATE (test code = GFR) ml/mi n/1.73 m2 CREATININE (test code = 1.0 mg/dL 0.6-1.3 N CREAT) TOTAL PROTEIN (test 4.6 g/dL 6.4-8.2 L code = PROT) ALBUMIN (test code = 2.30 g/dL 3.4-5.0 L ALB) CALCIUM (test code = 8.4 mg/dL 8.0-10.5 N CA) BILIRUBIN TOTAL (test 0.30 mg/dL 0.0-1.0 N code = BILT) SGOT/AST (test code = 22 IUnit/L 15-37 N AST) SGPT/ALT (test code = 21 IUnit/L 30-65 L ALT) ALKALINE PHOSPHATASE 69 IUnit/L 20-125 N TOTAL (test code = ALKP) [id number] 05:51:00 Test Item Value Reference Range Interpretation Comments PHOSPHOROUS (test code = PHOS) 3.5 MG/DL 2.5-4.9 N [id number] 05:51:00 Test Item Value Reference Range Interpretation Comments MAGNESIUM (test code = MAG) 2.01 mg/dL 1.80-2.40 N CALCIUM [id number] 05:51:00 Test Item Value Reference Range Interpretation Comments CALCIUM IONIZED (test code = LYLA) 1.21 MMOL/L 1.12-1.32 N CBC W/AUTO [id number] 05:22:00 Test Item Value Reference Range Interpretation Comments WHITE BLOOD CELL (test code = 8.8 x10 3/uL 4.5-11.0 N WBC) RED BLOOD CELL (test code = 2.81 x10 6/uL 4.00-5.60 L RBC) HEMOGLOBIN (test code = HGB) 8.5 g/dL 12.5-16.9 L HEMATOCRIT (test code = HCT) 27.6 % 37.5-50.7 L MEAN CELL VOLUME (test code = 98.2 fL 81.0-99.0 N MCV) MEAN CELL HGB (test code = MCH) 30.2 pg 27.0-33.0 N MEAN CELL HGB CONCETRATION 30.8 g/dL 33.0-37.0 L (test code = MCHC) RED CELL DISTRIBUTION WIDTH CV 16.4 % 11.5-14.5 H (test code = RDW) PLATELET COUNT (test code = 252 x10 3/uL 150-400 N PLT) NEUTROPHIL % (test code = NT%) 90.2 % 56.0-77.0 H LYMPHOCYTE % (test code = LY%) 5.0 % 14.0-32.0 L NEUTROPHIL # (test code = NT#) 7.89 x10 3/uL 2.0-7.6 H LYMPHOCYTE # (test code = LY#) 0.44 x10 3/uL 1.0-3.8 L MANUAL DIFF REQUIRED (test code NO = MDIFF) RED CELL DISTRIBUTION WIDTH SD 58.3 fL 37.0-54.0 H (test code = RDW-SD) MEAN PLATELET VOLUME (test code 11.0 fL 7.0-9.0 H = MPV) IMMATURE GRANULOCYTE % (test 1.7 % 0.0-2.0 N code = IG%) MONOCYTE % (test code = MO%) 3.0 % 4.8-9.0 L EOSINOPHIL % (test code = EO%) 0.0 % 0.3-3.7 L BASOPHIL % (test code = BA%) 0.1 % 0.0-2.0 N NUCLEATED RBC % (test code = 0.0 % 0-0 N NRBC%) IMMATURE GRANULOCYTE # (test 0.15 x10 3/uL 0.00-0.03 H code = IG#) MONOCYTE # (test code = MO#) 0.26 x10 3/uL 0.1-0.8 N EOSINOPHIL # (test code = EO#) 0.00 x10 3/uL 0.0-0.2 N BASOPHIL # (test code = BA#) 0.01 x10 3/uL 0.0-0.2 N NUCLEATED RBC # (test code = 0.00 x10 3/uL 0.0-0.1 N NRBC#) GLUCOSE [id number] 00:15:00 Test Item Value Reference Range Interpretation Comments GLUCOSE BEDSIDE (test 127 MG/DL 70-110 H Per[facility] med by certified code = GLUBED) 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 [facility] - XR CHEST 1 [id number] 00:00:00 [facility] : 1940 Sex: M FAX: Susanne Holliday [place]: St: [facility] FAX: Vinny Rosenthal MD [phone] FAX: Yaa Sifuentes DO [phone] Name: AMADOU MARCELINO [facility] : 1940 Age/S: 81/M [address] [place] [address] Blvd Unit #: [id number] Loc: G.0279 [place] [address] Phys: HollidayClarenceSusannemalcom GUZMAN Acct: [id number] Dis Date: Status: ADM IN PHONE #: [phone] Exam Date: 02/04/2022 0703 FAX #: [phone] Reason: follow pleural effsuions. EXAMS: CPT CODE: [id number] XR CHEST 1 V 17203 PROCEDURE INFORMATION: Exam: XR Chest Exam dateand time: 02/04/2022 7:00 AM Age: 81 years old Clinical indication: Other: Follow pleural effsuions.TECHNIQUE: Imaging protocol: Radiologic exam of the chest. Views: 1 view. COMPARISON: CR XR CHEST 102/03/2022 6:56 AM FINDINGS: Lungs: Bilateral lung opacities have mildly improved. Incidental note ismade of an azygos lobe, normal variant. Pleural spaces: Small pleural effusions, left greater than right, grossly stable. Heart/Mediastinum: Stable heart size. Vasculature: The aorta is tortuous and dem onstrates atherosclerotic calcifications. Bones/joints: Stable. IMPRESSION: Mildly improved lung opacities. at 1214 Reported and signed by: Mario Bustillos M.D. CC: Susanne Holliday; Vinny Waggoner MD; Yaa Mcclain DO Technologist: Christina Allen, RT(R); Kaykay De Los Santos RT(R) Trnscrd Date/Time/By: 02/04/2022 (6524) : By: [email or web address] Orig Print D/T: S: 02/04/2022 (1589) PAGE 1 Signed ReportGLUCOSE [id number] 19:38:00 Test Item Value Reference Range Interpretation Comments GLUCOSE BEDSIDE (test 122 MG/DL 70-110 H Per[facility] med by certified code = GLUBED) 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 [facility] GLUCOSE [id number] 15:59:00 Test Item Value Reference Range Interpretation Comments GLUCOSE BEDSIDE (test 113 MG/DL 70-110 H Perfor med by certified code = GLUBED) 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 [facility] CALCIUM [id number] 10:56:00 Test Item Value Reference Range Interpretation Comments CALCIUM IONIZED (test code = LYLA) 1.06 MMOL/L 1.12-1.32 L LACTIC ACID [id number] 10:25:00 Test Item Value Reference Range Interpretation Comments LACTIC ACID REPEAT (test code = 1.5 mmol/l 0.4-1.9 N LACTR) [id number] 10:11:00 Test Item Value Reference Range Interpretation Comments PHOSPHOROUS (test code = PHOS) 2.9 MG/DL 2.5-4.9 N [id number] 10:11:00 Test Item Value Reference Range Interpretation Comments MAGNESIUM (test code = MAG) 2.27 mg/dL 1.80-2.40 N GLUCOSE [id number] 07:22:00 Test Item Value Reference Range Interpretation Comments GLUCOSE BEDSIDE (test 85 MG/DL 70-110 N [facility] med by certified code = GLUBED) 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 [facility] COMPREHENSIVE METABOLIC [id number] 06:12:00 Test Item Value Reference Range Interpretation Comments SODIUM (test code = NA) 147 mEq/L 134-147 N POTASSIUM (test code = 3.9 mEq/L 3.4-5.0 N K) CHLORIDE (test code = 117 mEq/L 100-108 H CL) CARBON DIOXIDE (test 24 mEq/l 21-33 N code = CO2) ANION GAP (test code = 10 0-20 N GAP) GLUCOSE (test code = 104 mg/dL 70-110 GLU) BLOOD UREA NITROGEN 39 mg/dL 7-18 H (test code = BUN) GLOMERULAR FILTRATION 72.1 70-80 N Units of measure = RATE (test code = GFR) ml/mi n/1.73 m2 CREATININE (test code = 1.0 mg/dL 0.6-1.3 N CREAT) TOTAL PROTEIN (test 5.2 g/dL 6.4-8.2 L code = PROT) ALBUMIN (test code = 2.60 g/dL 3.4-5.0 L ALB) CALCIUM (test code = 8.4 mg/dL 8.0-10.5 N CA) BILIRUBIN TOTAL (test 0.40 mg/dL 0.0-1.0 code = BILT) SGOT/AST (test code = 21 IUnit/L 15-37 N AST) SGPT/ALT (test code = 22 IUnit/L 30-65 L ALT) ALKALINE PHOSPHATASE 68 IUnit/L 20-125 N TOTAL (test code = ALKP) LACTIC [id number] 06:07:00 Test Item Value Reference Range Interpretation Comments LACTIC ACID (test code = LACT) 2.1 mmol/L 0.4-1.9 H CBC W/AUTO [id number] 05:59:00 Test Item Value Reference Range Interpretation Comments WHITE BLOOD CELL (test code = 9.0 x10 3/uL 4.5-11.0 N WBC) RED BLOOD CELL (test code = 3.11 x10 6/uL 4.00-5.60 L RBC) HEMOGLOBIN (test code = HGB) 9.4 g/dL 12.5-16.9 L HEMATOCRIT (test code = HCT) 29.7 % 37.5-50.7 L MEAN CELL VOLUME (test code = 95.5 fL 81.0-99.0 N MCV) MEAN CELL HGB (test code = MCH) 30.2 pg 27.0-33.0 N MEAN CELL HGB CONCETRATION 31.6 g/dL 33.0-37.0 L (test code = MCHC) RED CELL DISTRIBUTION WIDTH CV 16.5 % 11.5-14.5 H (test code = RDW) RED CELL DISTRIBUTION WIDTH SD 55.9 fL 37.0-54.0 H (test code = RDW-SD) PLATELET COUNT (test code = 249 x10 3/uL 150-400 N PLT) MEAN PLATELET VOLUME (test code 11.1 fL 7.0-9.0 H = MPV) NEUTROPHIL % (test code = NT%) 82.4 % 56.0-77.0 H IMMATURE GRANULOCYTE % (test 1.8 % 0.0-2.0 N code = IG%) LYMPHOCYTE % (test code = LY%) 10.5 % 14.0-32.0 L MONOCYTE % (test code = MO%) 4.8 % 4.8-9.0 N EOSINOPHIL % (test code = EO%) 0.4 % 0.3-3.7 N BASOPHIL % (test code = BA%) 0.1 % 0.0-2.0 N NUCLEATED RBC % (test code = 0.7 % 0-0 H NRBC%) NEUTROPHIL # (test code = NT#) 7.40 x10 3/uL 2.0-7.6 N IMMATURE GRANULOCYTE # (test 0.16 x10 3/uL 0.00-0.03 H code = IG#) LYMPHOCYTE # (test code = LY#) 0.94 x10 3/uL 1.0-3.8 L MONOCYTE # (test code = MO#) 0.43 x10 3/uL 0.1-0.8 N EOSINOPHIL # (test code = EO#) 0.04 x10 3/uL 0.0-0.2 N BASOPHIL # (test code = BA#) 0.01 x10 3/uL 0.0-0.2 N NUCLEATED RBC # (test code = 0.06 x10 3/uL 0.0-0.1 N NRBC#) MANUAL DIFF REQUIRED (test code NO = MDIFF) - XR CHEST 1 [id number] 00:00:00 [facility] : 1940 Sex: M FAX: Susanne Holliday [place]: St: [facility] FAX: Vinny Rosenthal MD [phone] FAX: Yaa Sifuentes DO [phone] Name: AMADOU MARCELINO [facility] : 1940 Age/S: 81/M [address] [place] [address] Blvd Unit #: [id number] Loc: [place] [address] Phys: HollidayClarenceSusanne Nissa SERRANOHOLLI Acct: [id number] Dis Date: Status: ADM IN PHONE #: [phone] Exam Date: 02/03/2022 08 FAX #: [phone] Reason: follow pleural effsuions. EXAMS: CPT CODE: [id number] XR CHEST 1 V 09898 PROCEDURE INFORMATION: Exam: XR Chest Exam date and time: 02/03/2022 6:56 AM Age: 81 years old Clinical indication: Other: Follow pleural effsuions. TECHNIQUE: Imaging protocol: Radiologic exam of the chest. Views: 1 View. Portable AP view COMPARISON:CR XR CHEST 1V 02/02/2022 5:43 AM FINDINGS: Lungs: Normal lung volumes. Hazy perihilar and bibasilar airspace opacities are unchanged from prior exam. Pleural spaces: Small bilateral pleural effusions. No pneumothorax. Heart/Mediastinum: Cardiomediastinal silhouette is stable. Bones/joints: Unremarkable. IMPRESSION: 1. Hazy perihilar and bibasilar airspace opacities, similar to prior exam. 2. Stable small bilateral pleural effusions. at 1000 Reported and signed by: Feliciano Proctor M.D. 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 [facility] BASIC METABOLIC [id number] 16:29:00 Test Item Value Reference Range Interpretation Comments SODIUM (test code = NA) 140 mEq/L 134-147 N POTASSIUM (test code = 3.9 mEq/L 3.4-5.0 N K) CHLORIDE (test code = 112 mEq/L 100-108 H CL) CARBON DIOXIDE (test 22 mEq/l 21-33 N code = CO2) ANION GAP (test code = 10 0-20 N GAP) GLUCOSE (test code = 229 mg/dL 70-110 H GLU) BLOOD UREA NITROGEN 38 mg/dL 7-18 H (test code = BUN) GLOMERULAR FILTRATION 58.4 70-80 L Units of measure = RATE (test code = GFR) ml/mi n/1.73 m2 CREATININE (test code = 1.2 mg/dL 0.6-1.3 N CREAT) CALCIUM (test code = 8.0 mg/dL 8.0-10.5 N CA) [id number] 16:29:00 Test Item Value Reference Range Interpretation Comments MAGNESIUM (test code = MAG) 2.36 mg/dL 1.80-2.40 CALCIUM [id number] 16:29:00 Test Item Value Reference Range Interpretation Comments CALCIUM IONIZED (test code = LYLA) 1.20 MMOL/L 1.12-1.32 N [id number] 16:27:00 Test Item Value Reference Range Interpretation Comments HGBA1C% (test code = HGBA1C%) 5.8 %A1C 4.8-6.0 N GLUCOSE [id number] 16:01:00 Test Item Value Reference Range Interpretation Comments GLUCOSE BEDSIDE (test 163 MG/DL 70-110 H Perfor med by certified code = GLUBED) 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 [facility] LACTIC ACID [id number] 15:55:00 Test Item Value Reference Range Interpretation Comments LACTIC ACID REPEAT (test code = 2.3 mmol/l 0.4-1.9 H LACTR) B-TYPE NATRIURETIC [id number] 13:07:00 Test Item Value Reference Range Interpretation Comments B-TYPE NATRIURETIC PEPTIDE > 5000.0 PG/ML 0-100 H (test code = BNP) GLUCOSE [id number] 11:46:00 Test Item Value Reference Range Interpretation Comments GLUCOSE BEDSIDE (test 132 MG/DL 70-110 H Perfor med by certified code = GLUBED) 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 [facility] POC ARTERIAL BLOOD [id number] 08:39:00 Test Item Value Reference Range Interpretation Comments POC ARTERIAL BLOOD GAS PH (test 7.470 7.35-7.45 H code = POCPHA) POC ARTERIAL BLOOD GAS PCO2 (test 24.0 mmHg 35.0-45 LL code = SSOEQW2D) POC TCO2 ARTERIAL (test code = 18.2 POCTCO2) POC ARTERIAL BLOOD GAS PO2 (test 102.5 mmHg 80-100.0 H code = ZZDHB1J) POC HCO3 ARTERIAL (test code = 17.5 MMOL/L 22.0-26.0 LL LJGEWF5O) POC BASE EXCESS (test code = -6.2 MMOL/L -4.0-4.0 L POCBEA) POC O2 SATURATION (test code = 98.4 % 90-100 N POCO2S) ABG DELIVERY (test code = BRIGITTE) CPAP ABG VENT RESP RATE (test code = 38 /MIN RRA) ABG SITE (test code = SITEA) L Radial VIRA'S TEST (test code = ALLENS) Positive BASIC METABOLIC [id number] 08:39:00 Test Item Value Reference Range Interpretation Comments SODIUM (test code = NA/ABG) 143 MEQ/L 134-147 N POTASSIUM (test code = K/ABG) 3.7 MEQ/L 3.4-5.0 N CHLORIDE (test code = CL/ABG) 110 MEQ/L 100-108 H CREATININE ABG (test code = 1.4 mg/dL 0.8-1.3 H CREAABG) POC IONIZED CALCIUM (test code = 1.22 MMOL/L 1.12-1.32 N POCCA) POC GLUCOSE (test code = POCGLU) 173 MG/DL HEMOGLOBIN [id number] 08:39:00 Test Item Value Reference Range Interpretation Comments HEMOGLOBIN ABG (test code = HGB/ABG) 9.0 G/DL 12.5-16.9 L [id number] 08:39:00 Test Item Value Reference Range Interpretation Comments HEMATOCRIT (test code = HCT/ABG) 27 % 37.5-50.7 L POC LACTIC [id number] 08:39:00 Test Item Value Reference Range Interpretation Comments POC LACTIC ACID (test code = 2.2 mmol/l 0.9-1.7 H POCLAC) GLUCOSE [id number] 07:13:00 Test Item Value Reference Range Interpretation Comments GLUCOSE BEDSIDE (test 187 MG/DL 70-110 H [facility] by certified code = GLUBED) 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 [facility] COMPREHENSIVE METABOLIC [id number] 04:46:00 Test Item Value Reference Range Interpretation Comments SODIUM (test code = NA) 135 mEq/L 134-147 N POTASSIUM (test code = 3.5 mEq/L 3.4-5.0 N K) CHLORIDE (test code = 105 mEq/L 100-108 CL) CARBON DIOXIDE (test 20 mEq/l 21-33 L code = CO2) ANION GAP (test code = 14 0-20 N GAP) GLUCOSE (test code = 399 mg/dL 70-110 H GLU) BLOOD UREA NITROGEN 35 mg/dL 7-18 H (test code = BUN) GLOMERULAR FILTRATION 58.4 70-80 L Units of measure = RATE (test code = GFR) ml/mi n/1.73 m2 CREATININE (test code = 1.2 mg/dL 0.6-1.3 N CREAT) TOTAL PROTEIN (test 5.3 g/dL 6.4-8.2 L code = PROT) ALBUMIN (test code = 2.60 g/dL 3.4-5.0 L ALB) CALCIUM (test code = 8.2 mg/dL 8.0-10.5 N CA) BILIRUBIN TOTAL (test 0.60 mg/dL 0.0-1.0 N code = BILT) SGOT/AST (test code = 22 IUnit/L 15-37 N AST) SGPT/ALT (test code = 28 IUnit/L 30-65 L ALT) ALKALINE PHOSPHATASE 77 IUnit/L 20-125 N TOTAL (test code = ALKP) [id number] 04:46:00 Test Item Value Reference Range Interpretation Comments PHOSPHOROUS (test code = PHOS) 3.7 MG/DL 2.5-4.9 N [id number] 04:46:00 Test Item Value Reference Range Interpretation Comments MAGNESIUM (test code = MAG) 1.85 mg/dL 1.80-2.40 N CALCIUM [id number] 04:46:00 Test Item Value Reference Range Interpretation Comments CALCIUM IONIZED (test code = LYLA) 1.16 MMOL/L 1.12-1.32 N LACTIC [id number] 04:35:00 Test Item Value Reference Range Interpretation Comments LACTIC ACID (test code = LACT) 2.2 mmol/L 0.4-1.9 H CBC W/AUTO [id number] 04:25:00 Test Item Value Reference Range Interpretation Comments WHITE BLOOD CELL (test code = 8.6 x10 3/uL 4.5-11.0 N WBC) RED BLOOD CELL (test code = 3.52 x10 6/uL 4.00-5.60 L RBC) HEMOGLOBIN (test code = HGB) 10.4 g/dL 12.5-16.9 L HEMATOCRIT (test code = HCT) 33.6 % 37.5-50.7 L MEAN CELL VOLUME (test code = 95.5 fL 81.0-99.0 N MCV) MEAN CELL HGB (test code = MCH) 29.5 pg 27.0-33.0 N MEAN CELL HGB CONCETRATION 31.0 g/dL 33.0-37.0 L (test code = MCHC) RED CELL DISTRIBUTION WIDTH CV 16.5 % 11.5-14.5 H (test code = RDW) RED CELL DISTRIBUTION WIDTH SD 56.3 fL 37.0-54.0 H (test code = RDW-SD) PLATELET COUNT (test code = 249 x10 3/uL 150-400 N PLT) MEAN PLATELET VOLUME (test code 11.4 fL 7.0-9.0 H = MPV) NEUTROPHIL % (test code = NT%) 90.2 % 56.0-77.0 H IMMATURE GRANULOCYTE % (test 1.5 % 0.0-2.0 N code = IG%) LYMPHOCYTE % (test code = LY%) 4.4 % 14.0-32.0 L MONOCYTE % (test code = MO%) 3.8 % 4.8-9.0 L EOSINOPHIL % (test code = EO%) 0.0 % 0.3-3.7 L BASOPHIL % (test code = BA%) 0.1 % 0.0-2.0 N NUCLEATED RBC % (test code = 0.3 % 0-0 H NRBC%) NEUTROPHIL # (test code = NT#) 7.73 x10 3/uL 2.0-7.6 H IMMATURE GRANULOCYTE # (test 0.13 x10 3/uL 0.00-0.03 H code = IG#) LYMPHOCYTE # (test code = LY#) 0.38 x10 3/uL 1.0-3.8 L MONOCYTE # (test code = MO#) 0.33 x10 3/uL 0.1-0.8 N EOSINOPHIL # (test code = EO#) 0.00 x10 3/uL 0.0-0.2 N BASOPHIL # (test code = BA#) 0.01 x10 3/uL 0.0-0.2 N NUCLEATED RBC # (test code = 0.03 x10 3/uL 0.0-0.1 N NRBC#) MANUAL DIFF REQUIRED (test code NO = MDIFF) BASIC METABOLIC [id number] 04:03:00 Test Item Value Reference Range Interpretation Comments SODIUM (test code = NA/ABG) 145 MEQ/L 134-147 N POTASSIUM (test code = K/ABG) 3.5 MEQ/L 3.4-5.0 N CHLORIDE (test code = CL/ABG) 113 MEQ/L 100-108 H CREATININE ABG (test code = 1.3 mg/dL 0.8-1.3 N CREAABG) POC IONIZED CALCIUM (test code = 1.22 MMOL/L 1.12-1.32 N POCCA) POC GLUCOSE (test code = POCGLU) 199 MG/DL HEMOGLOBIN [id number] 04:03:00 Test Item Value Reference Range Interpretation Comments HEMOGLOBIN ABG (test code = 10.4 G/DL 12.5-16.9 L HGB/ABG) [id number] 04:03:00 Test Item Value Reference Range Interpretation Comments HEMATOCRIT (test code = HCT/ABG) 31 % 37.5-50.7 L POC LACTIC [id number] 04:03:00 Test Item Value Reference Range Interpretation Comments POC LACTIC ACID (test code = 1.1 mmol/l 0.9-1.7 N POCLAC) POC VENOUS BLOOD [id number] 04:03:00 Test Item Value Reference Range Interpretation Comments VIRA'S TEST (test code = ALLENS) Positive POC VENOUS BLOOD GAS PH (test 7.454 7.33-7.45 H code = POCPHV) POC VENOUS BLOOD GAS PCO2 (test 26.7 mmHg 43-47 LL code = NCLVEJ9J) POC VENOUS BLOOD GAS PO2 (test 91.7 mmHG 10-50 H code = LZCBD1U) POC TCO2 VENOUS (test code = 19.6 SCVTOV2N) POC HCO3 VENOUS (test code = 18.8 MMOL/L 22-27 L PEORJF1O) POC BASE EXCESS VENOUS (test code -5.2 MMOL/L -4.0-4.0 L = POCBEV) POC O2 SATURATION VENOUS (test 97.7 % 60-80 H code = UUET4AP) VENOUS BLOOD GAS SITE (test code L Radial = SITEV) - XR CHEST 1 [id number] 00:00:00 [facility] : 1940 Sex: M FAX: Stephan Chen MD [phone] [place]: St: [facility] FAX: Vinny Rosenthal MD [phone] FAX: Yaa Sifuentes DO [phone] Name: AMADOU MARCELINO [facility] : 1940 Age/S: 81/M [address] [place] [address] Unit #: [id number] Loc: [address] [place], [place] [id number] Phys: Stephan Dodson MD Acct: [id number] Dis Date: Status: ADM IN PHONE #: [phone] Exam Date: 02/02/2022639 FAX #: [phone] Reason: PULMONARY EDEMA EXAMS: CPT CODE: [id number] XR CHEST 1 V 85039 PROCEDURE INFORMATION: Exam: XR Chest Exam date and time: 02/02/2022 5:43 AM Age: 81 years old Clinical indication: Other: Pulmonary edema TECHNIQUE: Imaging protocol: Radiologic exam of the chest. Views: 1 View. Portable AP view COMPARISON: CR XR CHEST 1V 02/01/2022 10:05 PM FINDINGS: Lungs: Normal lung volumes. Hazy perihilar bibasilar airspace opacities are improved from prior exam. Pleural spaces: Small bilateral pleural effusions. No pneumothorax. Heart/Mediastinum: Cardiomediastinal silhouette is stable. Bones/joints: Unremarkable. IMPRESSION: 1. Hazy perihilar bibasilar airspace opacities are improved from prior exam. 2. Stable small bilateral pleural effusions. at 0727 Reported and signed by: Feliciano Proctor M.D. CC: Stephan Dodson MD; Vinny Waggoner MD; Yaa Mcclain DO Technologist: RT Carmen(R) Trnscrd Date/Time/By: 02/02/2022 (726) : By: [email or web address] [facility] Print D/T: S: 02/02/2022 (07) PAGE 1 Signed Report- XR SHOULDER 2 + V [id number] 00:00:00 [facility] CHARI AMADOU ERASMO : 1940 Sex: M FAX: Mary Carrasco MD [phone] [place]: St: ADM FAX: Vinny Rosenthal MD [phone] FAX: Alejandra Yaa Mcclain Lashay DIOP [phone] Name: AMADOU MARCELINO ERASMO [facility] Earnestine Gibbons : 1940 Age/S: 81/M [address] [place] [address] Unit #: [id number] Loc: .[address] [place] [id number] Phys: Mary Benitez MD Acct: [id number] Dis Date: Status: ADM IN PHONE #: [phone] Exam Date: 02/01/20221707 FAX #: [phone] Reason: pain EXAMS: CPT CODE: [id number] XR SHOULDER 2 + [place] [id number] PROCEDURE INFORMATION: Exam: XR Left Shoulder Exam date and time: 02/01/2022 5:08 PM Age: 81 years old Clinical indication: Pain; Shoulder; Left; Additionalinfo: Pain, bruising of shoulder TECHNIQUE: Imaging protocol: Radiologic exam of the Left shoulder. Views: 2 or more views. AP INT/ EXT ROTATION, SCAPULAR Y COMPARISON: CR XR CHEST 1V 01/31/2022 7:50 PMFINDINGS: Bones/joints: There is normal alignment at the glenohumeral joint. There are no fractures or dislocations. The acromioclavicular joint and coracoclavicular spaces are intact. The visualized scapula and clavicle are unremarkable. Soft tissues: There are no radiopaque foreign bodies. Notes: Ifthere is further concern, follow-up radiographs or MRI of the shoulder may be performed for completeassessment. IMPRESSION: No acute findings. at 0814 Reported and signed by: Feliciano Proctor M.D. CC: Mary Benitez MD; Vinny Waggoner MD; Yaa Mcclain DO Technologist: RT Farhat(R) Trnscrd Date/Time/By: 02/02/2022 (813) : By: [email or web address] Orig Print D/T: S: 02/02/2022 (813) PAGE 1 Signed ReportBASIC METABOLIC [id number] 23:23:00 Test Item Value Reference Range Interpretation Comments SODIUM (test code = NA) 142 mEq/L 134-147 N POTASSIUM (test code = 3.8 mEq/L 3.4-5.0 N K) CHLORIDE (test code = 114 mEq/L 100-108 H CL) CARBON DIOXIDE (test 21 mEq/l 21-33 N code = CO2) ANION GAP (test code = 11 0-20 N GAP) GLUCOSE (test code = 134 mg/dL 70-110 H GLU) BLOOD UREA NITROGEN 38 mg/dL 7-18 H (test code = BUN) GLOMERULAR FILTRATION 64.6 70-80 L Units of measure = RATE (test code = GFR) ml/mi n/1.73 m2 CREATININE (test code = 1.1 mg/dL 0.6-1.3 N CREAT) CALCIUM (test code = 8.6 mg/dL 8.0-10.5 N CA) CBC W/AUTO [id number] 23:12:00 Test Item Value Reference Range Interpretation Comments WHITE BLOOD CELL (test code = 12.4 x10 3/uL 4.5-11.0 H WBC) RED BLOOD CELL (test code = 3.59 x10 6/uL 4.00-5.60 L RBC) HEMOGLOBIN (test code = HGB) 10.8 g/dL 12.5-16.9 L HEMATOCRIT (test code = HCT) 34.4 % 37.5-50.7 L MEAN CELL VOLUME (test code = 95.8 fL 81.0-99.0 N MCV) MEAN CELL HGB (test code = 30.1 pg 27.0-33.0 N MCH) MEAN CELL HGB CONCETRATION 31.4 g/dL 33.0-37.0 L (test code = MCHC) RED CELL DISTRIBUTION WIDTH CV 16.3 % 11.5-14.5 H (test code = RDW) RED CELL DISTRIBUTION WIDTH SD 57.0 fL 37.0-54.0 H (test code = RDW-SD) PLATELET COUNT (test code = 269 x10 3/uL 150-400 N PLT) MEAN PLATELET VOLUME (test 11.2 fL 7.0-9.0 H code = MPV) NEUTROPHIL % (test code = NT%) 90.0 % 56.0-77.0 H IMMATURE GRANULOCYTE % (test 1.9 % 0.0-2.0 N code = IG%) LYMPHOCYTE % (test code = LY%) 4.2 % 14.0-32.0 L MONOCYTE % (test code = MO%) 3.6 % 4.8-9.0 L EOSINOPHIL % (test code = EO%) 0.1 % 0.3-3.7 L BASOPHIL % (test code = BA%) 0.2 % 0.0-2.0 N NUCLEATED RBC % (test code = 0.2 % 0-0 H NRBC%) NEUTROPHIL # (test code = NT#) 11.13 x10 3/uL 2.0-7.6 H IMMATURE GRANULOCYTE # (test 0.23 x10 3/uL 0.00-0.03 H code = IG#) LYMPHOCYTE # (test code = LY#) 0.52 x10 3/uL 1.0-3.8 L MONOCYTE # (test code = MO#) 0.44 x10 3/uL 0.1-0.8 N EOSINOPHIL # (test code = EO#) 0.01 x10 3/uL 0.0-0.2 N BASOPHIL # (test code = BA#) 0.02 x10 3/uL 0.0-0.2 N NUCLEATED RBC # (test code = 0.03 x10 3/uL 0.0-0.1 N NRBC#) MANUAL DIFF REQUIRED (test NO code = MDIFF) GLUCOSE [id number] 14:02:00 Test Item Value Reference Range Interpretation Comments GLUCOSE BEDSIDE (test 115 MG/DL 70-110 H Perfor med by certified code = GLUBED) 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 [facility] BASIC METABOLIC [id number] 07:55:00 Test Item Value Reference Range Interpretation Comments SODIUM (test code = NA) 148 mEq/L 134-147 H POTASSIUM (test code = 3.8 mEq/L 3.4-5.0 N K) CHLORIDE (test code = 121 mEq/L 100-108 H CL) CARBON DIOXIDE (test 21 mEq/l 21-33 N code = CO2) ANION GAP (test code = 10 0-20 N GAP) GLUCOSE (test code = 79 mg/dL 70-110 N GLU) BLOOD UREA NITROGEN 45 mg/dL 7-18 H (test code = BUN) GLOMERULAR FILTRATION 81.4 70-80 H Units of measure = RATE (test code = GFR) ml/mi n/1.73 m2 CREATININE (test code = 0.9 mg/dL 0.6-1.3 N CREAT) CALCIUM (test code = 8.1 mg/dL 8.0-10.5 N CA) COMMENTS: To be done morning of Heart CathCBC W/AUTO [id number] 07:33:00 Test Item Value Reference Range Interpretation Comments WHITE BLOOD CELL (test code = 8.9 x10 3/uL 4.5-11.0 N WBC) RED BLOOD CELL (test code = 3.10 x10 6/uL 4.00-5.60 L RBC) HEMOGLOBIN (test code = HGB) 9.3 g/dL 12.5-16.9 L HEMATOCRIT (test code = HCT) 29.3 % 37.5-50.7 L MEAN CELL VOLUME (test code = 94.5 fL 81.0-99.0 N MCV) MEAN CELL HGB (test code = MCH) 30.0 pg 27.0-33.0 N MEAN CELL HGB CONCETRATION 31.7 g/dL 33.0-37.0 L (test code = MCHC) RED CELL DISTRIBUTION WIDTH CV 16.4 % 11.5-14.5 H (test code = RDW) PLATELET COUNT (test code = 199 x10 3/uL 150-400 N PLT) NEUTROPHIL % (test code = NT%) 83.7 % 56.0-77.0 H LYMPHOCYTE % (test code = LY%) 7.5 % 14.0-32.0 L NEUTROPHIL # (test code = NT#) 7.46 x10 3/uL 2.0-7.6 N LYMPHOCYTE # (test code = LY#) 0.67 x10 3/uL 1.0-3.8 L MANUAL DIFF REQUIRED (test code NO = MDIFF) RED CELL DISTRIBUTION WIDTH SD 56.7 fL 37.0-54.0 H (test code = RDW-SD) MEAN PLATELET VOLUME (test code 11.2 fL 7.0-9.0 H = MPV) IMMATURE GRANULOCYTE % (test 1.9 % 0.0-2.0 N code = IG%) MONOCYTE % (test code = MO%) 5.3 % 4.8-9.0 N EOSINOPHIL % (test code = EO%) 1.5 % 0.3-3.7 N BASOPHIL % (test code = BA%) 0.1 % 0.0-2.0 N NUCLEATED RBC % (test code = 0.3 % 0-0 H NRBC%) IMMATURE GRANULOCYTE # (test 0.17 x10 3/uL 0.00-0.03 H code = IG#) MONOCYTE # (test code = MO#) 0.47 x10 3/uL 0.1-0.8 N EOSINOPHIL # (test code = EO#) 0.13 x10 3/uL 0.0-0.2 N BASOPHIL # (test code = BA#) 0.01 x10 3/uL 0.0-0.2 N NUCLEATED RBC # (test code = 0.03 x10 3/uL 0.0-0.1 N NRBC#) COMMENTS: To be done morning of Heart Cath- XR CHEST 1 [id number] 00:00:00 [facility] : 1940 Sex: M FAX: Y Quaddoura,Amer A MD [phone] [place]: St: ADM FAX: Vinny Rosenthal MD [phone] FAX: Yaa Sifuentes DO [phone] Name: CHARIAMADOU ERASMO [facility] [place] : 1940 Age/S: 81/M [address] [place] [address] Unit #: [id number] Loc: G.[address] [place] [address] Phys: Stephan Dodson MD Acct: [id number] Dis Date: Status: ADM IN PHONE #: [phone] Exam Date: 02/01/20222208 FAX #: [phone] Reason: PULMONARY EDEMA/SOB EXAMS: CPT CODE: [id number] XR CHEST 1 V 27769 PROCEDURE INFORMATION: Exam: XR Chest Exam date and time: 02/01/2022 10:05 PM Age: 81 years old Clinical indication: Shortness of breath and other: Pulmonary edema; Additional info: Pulmonary edema/sob TECHNIQUE: Imaging protocol: Radiologic exam of the chest. Views: 1 view. COMPARISON: CR XR CHEST 1V 01/31/2022 7:50 PM FINDINGS: Lungs: Lungsare adequately expanded. Azygos lobe and fissure are incidentally noted. Moderate hazy, ground-glassopacities are present throughout both lungs. Pleural spaces: There are small bilateral pleural effusions. No pneumothorax. Heart/Mediastinum: Heart size is within normal limits. Tortuosity of the thorac ic aorta is seen. Bones/joints: Unremarkable. IMPRESSION: Moderate hazy ground- glass opacities are present bilaterally, associated with small bilateral pleural effusions. Possible etiologies include pulmonary edema and pneumonia. Please correlate clinically. at 6241 Reported and signed by: Radha Downs M.D. CC: Stephan Dodson MD; Vinny Waggoner MD; Yaa Mcclain DO Technologist: MARLON Dougherty) Manju Date/Time/By: 02/01/2022 (0568) : By: RobbieYA Yara Print D/T: S: 02/01/2022 (2636) PAGE 1 Signed Report- XR CHEST 1 [id number] 00:00:00 [facility] : 1940 Sex: M FAX: Vinny Rosenthal MD [phone] [place]: St: [facility] FAX: Cedrick Peterson [phone] -------- Name: AMADOU MARCELINO [facility] : 1940 Age/S: 81/M [address] [place] [address] Unit #: [id number] Loc: [address] [place] [address] Phys: Cedrick PetersonP Acct: [id number] Dis Date: Status: ADM IN PHONE #: Exam Date: 01/31/20221951 FAX #: [phone] Reason: PRE PCI EXAMS: CPT CODE: [id number] XR CHEST 1 V 61129 PROCEDURE INFORMATION: Exam: XR Chest Exam date and time: 01/31/2022 7:50 PM Age: 81 years old Clinical indication: Shortness of breath; Additional info: Pre pci TECHNIQUE: Imaging protocol: Radiologic exam of the chest. Views: 1 view. COMPARISON: No relevant prior studies available. FINDINGS: Lungs: Low lung volumes. Bilateral interstitial and streaky opacities of the lungs with mild pulmonary vascular congestion. Left basilar airspace disease. Pleural spaces: No pneumothorax or pleural effusion. Heart/Mediastinum: Heart size is enlarged. Vasculature: Tortuosity of the aorta. Bones/joints: No acute osseous abnormality. IMPRESSION: 1. Bilateral pulmonary opacities suggestive of inflammation versus pulmonary edema. 2. Left basilar atelectasis versus consolidation. at 0809 Reported and signed by: Magi Rdz M.D. CC: Vinny Waggoner MD; Cedrick Peterson Technologist: MARLON Interiano) Trnscrd Date/Time/By: 02/01/2022 (0809) : By: [email or web address] Orig Print D/T: S: 02/01/2022 (809) PAGE 1 Signed [id number] 15:34:00 Test Item Value Reference Range Interpretation Comments ACT-ISTAT (test code 271 SEC 74-137 H Perform ed by certified = ACTI) 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 [facility] [id number] 15:34:00 Test Item Value Reference Range Interpretation Comments ACT-ISTAT (test code 265 SEC 74-137 H Perform ed by certified = ACTI) 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 [facility] [id number] 14:57:00 Test Item Value Reference Range Interpretation Comments ACT-ISTAT (test code 254 SEC 74-137 H Perform ed by certified = ACTI) 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 [facility] FL, ESOPH, SWALLOW FUNCTION, WITH CINE OR [id number] 14:54:00MBS w/parish SLPReason for exam:->dsphagia/aspiration/CVAFINAL REPORT EXAMINATION: Modified barium swallow study INDICATION: CVA COMPARISON: None. TECHNIQUE: The examination was performed in conjunction with speech pathology. Varying consistencies of barium was administered under lateral fluoroscopic observation. Fluoroscopy time: 1.6 minutesNumber of images: 3 IMPRESSION: No aspiration. Flash penetration with thin consistency barium. Please refer to speech pathologist note from same day for further description. Signed: Ritika Mendez MDReport Verified Date/Time: 04/06/2020 14:54:40 Reading Location: [address] Transitional Reading Room [facility] METABOLIC [id number] 01:55:00 Test Item Value Reference Range Interpretation [...] 697) EGFR (BEAKER) (test 66 mL/min/1.73 ESTIMA GILBERTO GFR IS code = 1092) sq m NOT ACCURATE CREATININE CLEARANCE IN PREDICTING GLOMERULAR FILTRATION RATE . ESTIMATED GFR I S NOT APPLICABLE FOR DIALYSIS PATIEN TS. Medical Cost Consultant ID - PIAYA LTROPONIN [id number] 01:52:00 Test Item Value Reference Range Interpretation [...] failure, acidosis, acute neurological disease, and persistent tachyarrhythmia.Medical Cost Consultant ID - RAY LMR, BRAIN, WITHOUT [id number] 22:32:00Unlisted Reason for Exam - Click Yes and Enter Reason Below->NoFINAL REPORT Exam: MRI brain without contrast. Comparison: None. Clinical indication: Neuro deficit, acute, stroke suspected Technique: Multiplanar multi sequential MR imaging of the brain was performed without the administration of intravenous contrast. Findings:There are mild whi te matter microvascular ischemic changes.There is focal T2 hyperintense signal abnormality along theposterior falx with corresponding restricted diffusion, which may be due to an underlying lesion measuring up to 8 mm.There is no mass effect, extra-axial collection, hydrocephalus or herniation. Thereis no restricted diffusion to suggest an acute [...] The orbits, sella and parasellar regions are unremarkable. The craniocervical junction is normal. Impression:Mild white matter microvascular ischemic changes.No acute infarct, hemorrhage or mass effect.Focal T2 hyperintense signal abnormality along the posterior falx with corresponding restricted diffusion, which may be d ue to an underlying dural lesion. A noncontrast chest CT contrast-enhanced MRI would be helpful for further evaluation. Signed: Etienne Mancia [facility] Verified Date/Time: 04/05/2020 22:32:21 MR, MRA, BRAIN, WITHOUT [id number] 22:26:00 Reason for exam:->Ischemic Stroke EvaluationFINAL REPORT MRA head and neck without contrast. CLINICAL HISTORY: Stroke, follow up. Ischemic stroke evaluation. COMPARISON: None. TECHNIQUE: Two- and three- dimensional eijt-vf-uwvila MRA images of the intra- and extracranial carotid and vertebral arterial circulations were obtained, from which maximal intensity projection 3-D reconstructions were created. FINDINGS: MRA neck: There is no vessel occlusion or NASCET-quantifiable stenosis in the extracranial carotid or vertebral arterial circulations. Flow is antegrade in both vertebral arteries. MRA makah of [place]erv[place]: There is novessel occlusion, flow-limiting stenosis, or aneurysm in the intracranial carotid or vertebrobasilararterial circulations. IMPRESSION: Negative intra- and extracranial MRAs. Signed: Etienne Mancia ort Verified Date/Time: 04/05/2020 22:26:03 MR, MRA, NECK, WITHOUT IV CONTRAST 2020-04-05 22:26:00Reason for exam:->Ischemic Stroke EvaluationFINAL REPORT MRA head and neck without contrast. CLINICAL HISTORY: Stroke, follow up. Ischemic stroke evaluation. COMPARISON: None. TECHNIQUE: Two- and three-dimensional pmqi-wh-ebsdqt MRA images of the intra- and extracranial carotid and vertebral arterial circulations were obtained, from which maximal intensity projection 3-D reconstructions were created. FINDINGS: MRA neck: There is no vessel occlusion or NASCET-quantifiable stenosis in the extracranial carotid or vertebral arterial circulations. Flow is antegrade in both vertebral arteries. MRA makah of [place]: There is novessel occlusion, flow-limiting stenosis, or aneurysm in the intracranial carotid or vertebrobasilararterial circulations. IMPRESSION: Negative intra- and extracranial MRAs. Signed: Etienne Manciaort Verified Date/Time: 04/05/2020 22:26:03 HEMOGLOBIN [id number] 11:32:00 Test Item Value Reference Range Interpretation Comments HEMOGLOBIN A1C (BEAKER) (test code = 5.5 % 4.3-6.1 368) RAD, CHEST, 1 VIEW, NON [id number] 07:30:00Reason for exam:- >baselineShould this be performed at the bedside?->YesFINAL REPORT CLINICAL HISTORY: baseline TECHNIQUE: 1 view of the chest. COMPARIS ON: None IMPRESSION: There are no focal infiltrates or effusions. Incidental note is made of an azygos lobe. The cardiomediastinal silhouette is magnified by technique. The osseous structures appear intact. Signed: Lisa Mobley MDReport Verified Date/Time: 04/05/2020 07:30:03 Reading Location: [facility] Radiology Reading Room HEPATIC FUNCTION [id number] 07:17:00 Test Item Value Reference Range Interpretation [...] (test code = 15 U/L 6-55 347) Medical Cost Consultant ID - DBFOLATE, [id number] 06:47:00 Test Item Value Reference Range Interpretation Comments FOLATE (BEAKER) (test code = 362) > ng/mL >=7.00 Medical Cost Consultant ID - EDASIVITAMIN [id number] 05:50:00 Test Item Value Reference Range Interpretation Comments VITAMIN B12 (BEAKER) (test code = 620 pg/mL 213-816 774) Medical Cost Consultant ID - EDASITSH/FREE T4 IF [id number] 05:50:00 Test Item Value Reference Range Interpretation Comments THYROID STIMULATING HORMONE 0.513 uIU/mL 0.350-4.940 (BEAKER) (test code = 772) Medical Cost Consultant ID - EDASITROPONIN [id number] 04:27:00 Test Item Value Reference Range Interpretation [...] failure, acidosis, acute neurological disease, and persistent tachyarrhythmia.Medical Cost Consultant ID - EDASIBASIC METABOLIC PANEL 2020-04-05 04:24:00 Test Item Value Reference Range [...] 697) EGFR (BEAKER) (test 45 mL/min/1.73 ESTIMA GILBERTO GFR IS code = 1092) sq m NOT ACCURATE CREATININE CLEARANCE IN PREDICTING GLOMERULAR FILTRATION RATE . ESTIMATED GFR I S NOT APPLICABLE FOR DIALYSIS PATIEN TS. Medical Cost Consultant ID - EDASILIPID [id number] 04:24:00 Test Item Value Reference Range Interpretation Comments TRIGLYCERIDES (BEAKER) (test code = 117 mg/dL 540) CHOLESTEROL (BEAKER) (test code = 130 mg/dL 631) HDL CHOLESTEROL (BEAKER) (test code 37 mg/dL = 976) LDL CHOLESTEROL CALCULATED (BEAKER) 70 mg/dL (test code = 633) Triglyceride Reference Range: Low Risk <150 Borderline 150-199 High Risk 200- 499 Very High Risk >=500Cholesterol Reference Range: Low Risk <200 Borderline 200-239 High Risk >240HDL Cholesterol Reference Range: Low Risk >=60 High Risk <40LDL Cholesterol Reference Range: Optimal <100 Near Optimal 100-129 Borderline 130-159 High 160-189 Very High >=190 Medical Cost Consultant ID - [id number] 04:12:00 Test Item Value Reference Range Interpretation Comments PARTIAL THROMBOPLASTIN TIME 30.4 seconds 22.5-36.0 (BEAKER) (test code = 760) PROTHROMBIN [id number] 04:11:00 Test Item Value Reference Range Interpretation [...] is 2.5-3.5 for patients wiht mechanical heart valves.CBC W/PLT COUNT & AUTO [id number] 04:07:00 Test Item Value Reference Range Interpretation [...] 0-1 PERCENT (BEAKER) (test code = 2801) [id number] 07:24:00 Test Item Value Reference Range Interpretation Comments ACT-ISTAT (test code = ACTI) 208 SEC 74-137 H BASIC METABOLIC [id number] 08:47:00 Test Item Value Reference Range Interpretation [...] 8.7 MG/DL 8.4-10.2 N CA) CBC W/AUTO [id number] 08:17:00 Test Item Value Reference Range Interpretation [...] 0.00 K/mm3 0.0-0.1 N NRBC#) BASIC METABOLIC [id number] 06:47:00 Test Item Value Reference Range Interpretation [...] LIPOPROTEIN LDL (test 75 MG/DL 0-99 N OPTIM AL.........<100 code = LDL) mg/dLNEAR OPTIMAL/ABOVE OPTIMAL........ .100-12 9 mg/dL BORDERL INE HIGH.........13 0-159 mg/dL HIGH.........16 0-189 mg/dL VERY HIGH.........>/ = 190 mg/dL [id number] 06:47:00 Test Item Value Reference Range Interpretation Comments MAGNESIUM (test code = MAG) 1.9 MG/DL 1.6-2.3 N PROTHROMBIN [id number] 06:44:00 Test Item Value Reference Range Interpretation Comments PROTHROMBIN TIME 14.9 SECONDS 9.4-12.5 H PATIENT (test code = PTP) INTERNATIONAL NORMAL 1.4 The INR is to be RATIO (test code = used only for INR) monitoring oral anticoagulantth erap y. INDICATION I NR VALUE ---- ---- ---- -------1. Prophylaxis, de ep venous thrombos is, including high risk surgery. 2.0 - 3.0 2. Prophylaxis, deep venous thrombosis, hip surgery, treatm ent for deep venous thrombosis or pulmonary prevention of systemic emboli sm in patients wit h valvular heart disease, atrial fibrillation, tissue heart va lve, or acute myocar dial infarction. 2. 0 - 3.0 3. Informatics Spec al prosthesis hear t valves, recurre nt systemic emboli sm. 3.0 - 4.5 PTT [id number] 06:44:00 Test Item Value Reference Range Interpretation Comments PTT ACTIVATED (test code = APTT) 33.7 SECONDS 25.1-36.5 N BASIC METABOLIC [id number] 06:36:00 Test Item Value Reference Range Interpretation [...] LDL (test MG/DL 0-99 code = LDL) [id number] 06:36:00 Test Item Value Reference Range Interpretation Comments MAGNESIUM (test code = MAG) 1.9 MG/DL 1.6-2.3 N BASIC METABOLIC [id number] 06:35:00 Test Item Value Reference Range Interpretation [...] LDL (test MG/DL 0-99 code = LDL) [id number] 06:35:00 Test Item Value Reference Range Interpretation Comments MAGNESIUM (test code = MAG) 1.9 MG/DL 1.6-2.3 N BASIC METABOLIC [id number] 06:34:00 Test Item Value Reference Range Interpretation [...] LDL (test code = LDL) MG/DL 0-99 [id number] 06:34:00 Test Item Value Reference Range Interpretation Comments MAGNESIUM (test code = MAG) MG/DL 1.6-2.3 BASIC METABOLIC [id number] 06:32:00 Test Item Value Reference Range Interpretation [...] LDL (test code = LDL) MG/DL 0-99 [id number] 06:32:00 Test Item Value Reference Range Interpretation Comments MAGNESIUM (test code = MAG) MG/DL 1.6-2.3 CBC W/AUTO [id number] 06:20:00 Test Item Value Reference Range Interpretation [...] K/mm3 0.0-0.1 N NRBC#) Coronavirus 2018 nCoV [id number] 18:32:00 Test Item Value Reference Range Interpretation Comments Coronavirus 2019 nCoV Negative NEGATIVE Per michelle nufacturer, Bedside (test code = negativ e results should COVNONPUIBED) be treated aspresumptive a nd, if inconsistent wi th clinical signs andsymptoms or necessary for p atient management, libra uld betested with a n alternative mol ecular assay. Negative resultsdo not p reclude SARS-CoV-2 infe ction and should not be usedas the sole basis for patient man agement decisions. Nega tive results should be considered in t he context of apat ient's recent exposure s, history, presen ce of clinicalsigns a nd symptoms consis tent with COVID-19.
[2022-03-31] MEDS ORDERED: METOPROLOL TARTRATE 5 MG/5 ML INJ IV ONE (22:44)
[2022-03-31 23:13] LABS: Protime INR 1.42
[2022-03-31 23:17] LABS: Absolute Lymphocytes (CBC) 1.5 K/uL (0.7-4.9); Hematocrit 29.8 % (39.6-49.0); Lymphocytes % 17.6 % (15.3-44.8); MCV 84.9 fL (80-100); MPV 7.2 fL (7.6-11.3); RBC Red Blood Cell Count 3.51 M/uL (4.33-5.43)
[2022-03-31 23:23] LABS: SARS-CoV-2 Antigen Rapid Res Negative (Negative)
[2022-03-31 23:34] LABS: Albumin 2.5 g/dL (3.4-5.0); Bilirubin Total 0.3 mg/dL (0.2-1.0); Magnesium 2.2 mg/dL (1.8-2.4); Potassium 4.2 mmol/L (3.5-5.1); Protein, Total 5.9 g/dL (6.4-8.2)
[2022-03-31 23:51] LABS: Troponin High Sensitivity 60.4 pg/mL (<58.9)
--- NOTE | 2022-04-01 00:02 | ER ---
Nurse's Notes [facility] Name: Jp Sun Age: 81 yrs Sex: Male : 1940 Arrival Date: 03/31/2022 Time: 22:27 Bed 26 Private MD: Diagnosis: A Fib with RVR;Chest pain, unspecified;Shortness of breath Presentation: 03/31 22:30 Chief complaint: EMS states: "We were initialy called out for chest pain and shortness vc1 of breath when we go there he said it is now more pain in his upper chest lower throat. He has a feeding tube and from [facility].". 22:30 Coronavirus screen: Vaccine status: Patient reports receiving the 2nd dose of the covid vc1 vaccine. Moderna for first two, Pfizer for 2 boosters. Client presents with at least one sign or symptom that may indicate coronavirus-19. Standard/surgical mask placed on the client. Provider contacted for isolation considerations. Ebola Screen: No symptoms or risks identified at this time. Initial Sepsis Screen: Does the patient meet any 2 criteria? RR > 20 per min. HR > 90 bpm. Yes Does the patient have a suspected source of infection? No. Patient's initial sepsis screen is negative. Risk Assessment: Do you want to hurt yourself or someone else? Patient reports no desire to harm self or others. Onset of symptoms was March 31, 2022. 22:30 Method Of Arrival: EMS: [facility] vc1 22:30 Acuity: FRANCISCO 2 vc1 Triage Assessment: 22:30 General: Appears in no apparent distress. uncomfortable, ill, Behavior is anxious, vc1 Smells of urine. Pain: Denies pain. EENT: No deficits noted. EENT: Oral mucosa is dry. Patient is NPO, had feeding tube. Neuro: Level of Consciousness is awake, alert, obeys commands, Oriented to person, place, situation. Cardiovascular: Reports chest pain, Chest pain and SOB prior to arrival Patient's skin is warm and dry. Respiratory: Airway is patent Respiratory effort is even, unlabored, Respiratory pattern is tachypnea. GI: No deficits noted. : No deficits noted. Derm: No deficits noted. 22:30 Musculoskeletal: No signs and/or symptoms reported regarding the musculoskeletal system.vc1 Historical: - Allergies: 22:30 No Known Allergies; vc1 - Home Meds: 22:30 amlodipine 10 mg tab 1 tab once daily [Active]; aspirin 81 mg Oral tab daily [Active]; vc1 azathioprine 50 mg Oral tab 2 tabs once daily [Active]; bupropion HCl 75 mg Oral tab daily [Active]; carvedilol 25 mg Oral tab every 12 hours [Active]; Complete Multivitamin-Multimineral Oral once daily [Active]; diphenoxylate-atropine 2.5-0.025 mg Oral tab 2 tabs 4 times per day [Active]; furosemide 40 mg Oral tab once daily [Active]; furosemide 20 mg Oral tab once daily [Active]; gabapentin 400 mg Oral cap 1 cap BID [Active]; losartan 50 mg Oral tab once daily [Active]; pantoprazole 40 mg Oral TbEC once daily [Active]; Plavix 75 mg Oral tab 1 tab once daily [Active]; prednisone 20 mg Oral tab 4 tabs once daily [Active]; pyridostigmine bromide 60 mg Oral tab BID [Active]; sertraline 100 mg Oral tab 2 tabs once daily [Active]; spironolactone 50 mg Oral tab once daily [Active]; tolterodine 2 mg Oral cp24 BID [Active]; tramadol 50 mg Oral tab every 6 hours [Active]; Tylenol #3 Oral every 6 hours [Active]; - PMHx: 22:30 Difficulty swallowing; Hypertension; TIA; vc1 - PSHx: 22:30 feeding tube; Prostate surgery; vc1 - Immunization history:: Adult Immunizations up to date. - Social history:: Smoking status: Patient denies any tobacco usage or history of. Screenin:10 Abuse screen: Denies threats or abuse. Nutritional screening: No deficits noted. vc1 Tuberculosis screening: No symptoms or risk factors identified. Fall Risk None identified. Vital Signs: 22:29 Temp 97.8(A); kd3 22:43 BP 113 / 70; Pulse 100; vc1 22:50 BP 109 / 68; Pulse 90; vc1 22:51 BP 131 / 84; Pulse 89; vc1 23:14 BP 113 / 78; Pulse 122; Resp 26; Temp 97.6(A); Pulse Ox 93% on R/A; vc1 23:14 Weight 83.46 kg; Height 6 ft. 0 in. (182.88 cm); vc1 23:14 Body Mass Index 24.95 (83.46 kg, 182.88 cm) vc1 ED Course: 22:27 Patient arrived in ED. la1 22:28 Cesar Sinclair DO is Attending Physician. ms3 22:29 Alexandria Noble, RN is Primary Nurse. kd3 22:30 Arm band placed on. vc1 22:30 Patient has correct armband on for positive identification. Client placed on continuous vc1 cardiac and pulse oximetry monitoring. NIBP monitoring applied. 23:08 Triage completed. vc1 23:11 XRAY Chest (1 view) In Process Unspecified. EDMS 04/01 00:01 Arline Martinez MD is Hospitalizing Provider. ms3 Administered Medications: 03/31 22:38 Drug: Metoprolol 5 mg Route: IVP; Site: left antecubital; vc1 22:43 Follow up: BP 113 / 70; Pulse 100 bpm vc1 22:45 Drug: Metoprolol 5 mg Route: IVP; Site: left antecubital; vc1 22:50 Follow up: BP 109 / 68; Pulse 90 bpm vc1 22:51 Follow up: BP 131 / 84; Pulse 89 bpm vc1 22:52 Drug: Metoprolol 5 mg Route: IVP; Site: left antecubital; vc1 23:04 Follow up: Response: No adverse reaction; Blood pressure is unchanged; Cardiac rhythm vc1 is unchanged Medication: 23:13 VIS not applicable for this client. vc1 Outcome: 04/01 00:02 Decision to Hospitalize by Provider. ms3 14:14 Patient left the ED. vg1 Signatures: Dispatcher [employer] EDNJ Felipe Moreno, CLARIFICATION OPERATOR-C CLARIFICATION OPERATOR-Cla1 Bessy Aranda, RN RN vg1 Cesar Sinclair DO DO ms3 Alexandria Noble, RN RN kd3 Tita Mahajan RN RN vc1
--- NOTE | 2022-04-01 00:02 | EDPHYS ---
Physician Documentation [facility] Name: Jp Sun Age: 81 yrs Sex: Male : 1940 Arrival Date: 03/31/2022 Time: 22:27 Bed 26 Private MD: ED Physician Cesar Sinclair HPI: 04/01 00:36 This 81 yrs old Male presents to ER via EMS with complaints of shortness of breath and ms3 chest pain. 00:36 The patient or guardian reports chest pain that is located primarily in the epigastric ms3 area. Onset: acutely, today. The pain does not radiate. Associated signs and symptoms: Pertinent positives: shortness of breath, Pertinent negatives: abdominal pain, vomiting. The chest pain is described as a pressure. Historical: - Allergies: 03/31 22:30 No Known Allergies; vc1 - Home Meds: 22:30 amlodipine 10 mg tab 1 tab once daily [Active]; aspirin 81 mg Oral tab daily [Active]; vc1 azathioprine 50 mg Oral tab 2 tabs once daily [Active]; bupropion HCl 75 mg Oral tab daily [Active]; carvedilol 25 mg Oral tab every 12 hours [Active]; Complete Multivitamin-Multimineral Oral once daily [Active]; diphenoxylate-atropine 2.5-0.025 mg Oral tab 2 tabs 4 times per day [Active]; furosemide 40 mg Oral tab once daily [Active]; furosemide 20 mg Oral tab once daily [Active]; gabapentin 400 mg Oral cap 1 cap BID [Active]; losartan 50 mg Oral tab once daily [Active]; pantoprazole 40 mg Oral TbEC once daily [Active]; Plavix 75 mg Oral tab 1 tab once daily [Active]; prednisone 20 mg Oral tab 4 tabs once daily [Active]; pyridostigmine bromide 60 mg Oral tab BID [Active]; sertraline 100 mg Oral tab 2 tabs once daily [Active]; spironolactone 50 mg Oral tab once daily [Active]; tolterodine 2 mg Oral cp24 BID [Active]; tramadol 50 mg Oral tab every 6 hours [Active]; Tylenol #3 Oral every 6 hours [Active]; - PMHx: 22:30 Difficulty swallowing; Hypertension; TIA; vc1 - PSHx: 22:30 feeding tube; Prostate surgery; vc1 - Immunization history:: Adult Immunizations up to date. - Social history:: Smoking status: Patient denies any tobacco usage or history of. ROS: 04/01 02:59 Constitutional: Negative for fever, and chills. Eyes: Negative for injury, pain, ms3 redness, and discharge, Neck: Negative for injury, pain, and swelling, Abdomen/GI: Negative for abdominal pain, nausea, vomiting, diarrhea, and constipation, MS/Extremity: Negative for injury and deformity, Skin: Negative for injury, rash, and discoloration. Cardiovascular: Positive for chest pain. Respiratory: Positive for shortness of breath. All other systems are negative. Exam: 03/31 22:31 Constitutional: This is a well developed, well nourished patient who is awake, alert, ms3 and in no acute distress. Eyes: Pupils equal round and reactive to light, extra-ocular motions intact. Lids and lashes normal. Conjunctiva and sclera are non-icteric and not injected. Periorbital areas with no swelling, redness, or edema. Neck: Trachea midline, no cervical lymphadenopathy. Supple, full range of motion without nuchal rigidity, or vertebral point tenderness. No Meningismus. Chest/axilla: Normal chest wall appearance and motion. Nontender with no deformity. Cardiovascular: Rate: tachycardic, Rhythm: irregularly irregular, Pulses: no pulse deficits are appreciated, Heart sounds: normal. ECG was reviewed by the Attending Physician. Vital Signs: 22:29 Temp 97.8(A); kd3 22:43 BP 113 / 70; Pulse 100; vc1 22:50 BP 109 / 68; Pulse 90; vc1 22:51 BP 131 / 84; Pulse 89; vc1 23:14 BP 113 / 78; Pulse 122; Resp 26; Temp 97.6(A); Pulse Ox 93% on R/A; vc1 23:14 Weight 83.46 kg; Height 6 ft. 0 in. (182.88 cm); vc1 23:14 Body Mass Index 24.95 (83.46 kg, 182.88 cm) vc1 MDM: 22:28 Patient medically screened. ms3 04/01 02:57 Differential diagnosis: abnormal EKG, acute myocardial infarction, coronary artery ms3 disease. Data reviewed: vital signs, nurses notes, lab test result(s), EKG, radiologic studies, and as a result, I will admit patient. Data interpreted: air sampling and monitoring: rate is 87 beats/min, rhythm is normal sinus rhythm, regular, with no ectopy, Interpretation: normal rate, normal rhythm. Counseling: I had a detailed discussion with the patient and/or guardian regarding: the historical points, exam findings, and any diagnostic results supporting the discharge/admit diagnosis, lab results, radiology results, the need for further work-up and treatment in the hospital. ED course: Discussed case with Felipe Moreno NP, and he accepts patient on behalf of Dr Martinez. 03/31 22:32 Order name: CBC with Diff; Complete Time: 23:19 la1 03/31 22:32 Order name: Magnesium; Complete Time: 23:59 la03/31 22:32 Order name: NT PRO-BNP; Complete Time: 23:59 la03/31 22:32 Order name: PT-INR; Complete Time: 23:19 la 03/31 22:32 Order name: Troponin HS; Complete Time: 23:59 la03/31 22:32 Order name: CMP; Complete Time: 23:59 la03/31 22:32 Order name: XRAY Chest (1 view) la 03/31 22:32 Order name: Lipase; Complete Time: 23:59 la1 03/31 22:32 Order name: SARS RAPID; Complete Time: 23:25 la04/01 03:24 Order name: CBC with Automated Diff [facility] 04/01 03:42 Order name: Comprehensive Metabolic Panel [facility] 04/01 03:42 Order name: Troponin High Sensitivity [facility] 04/01 11:50 Order name: Troponin High Sensitivity [facility] 04/01 12:52 Order name: US [facility] 03/31 22:32 Order name: EKG; Complete Time: 22:33 la03/31 22:32 Order name: Cardiac monitoring; Complete Time: 22:36 la03/31 22:32 Order name: EKG - Nurse/Tech; Complete Time: 22:36 la03/31 22:32 Order name: IV Saline Lock; Complete Time: 23:04 la03/31 22:32 Order name: Labs collected and sent; Complete Time: 23:04 la03/31 22:32 Order name: O2 Per Protocol; Complete Time: 22:37 la1 03/31 22:32 Order name: O2 Sat Monitoring; Complete Time: 22:37 la1 EC/13 22:31 Rate is 118 beats/min. Rhythm is irregularly irregular. Left axis deviation noted. ms3 Clinical impression: Atrial Fibrillation and with RVR. Interpreted by me. Reviewed by me. 23:16 Rate is 81 beats/min. Rhythm is regular. Left axis deviation noted. Clinical ms3 impression: NSR with bifasicular block. Interpreted by me. Reviewed by me. Administered Medications: 22:38 Drug: Metoprolol 5 mg Route: IVP; Site: left antecubital; vc1 22:43 Follow up: BP 113 / 70; Pulse 100 bpm vc1 22:45 Drug: Metoprolol 5 mg Route: IVP; Site: left antecubital; vc1 22:50 Follow up: BP 109 / 68; Pulse 90 bpm vc1 22:51 Follow up: BP 131 / 84; Pulse 89 bpm vc1 22:52 Drug: Metoprolol 5 mg Route: IVP; Site: left antecubital; vc1 23:04 Follow up: Response: No adverse reaction; Blood pressure is unchanged; Cardiac rhythm vc1 is unchanged Disposition Summary: 04/01/22 00:02 Hospitalization Ordered Hospitalization Status: Observation ms3 Provider: Arline Martinez ms3 Condition: Stable ms3 Problem: new ms3 Symptoms: are unchanged ms3 Bed/Room Type: Standard ms3 Location: [facility] ER HOLD(04/01/22 00:12) mw Room Assignment: ERHOLD-(04/01/22 00:12) mw Diagnosis - A Fib with RVR ms3 - Chest pain, unspecified ms3 - Shortness of breath ms3 Forms: - Medication Reconciliation Form ms3 - SBAR form ms3 Signatures: Dispatcher [employer] EDMS Omaira Villagomez RN RN Felipe Suarez FNP-C DANIELLE-Cesar Simmons DO DO ms3 Tita Mahajan RN RN vc1 Corrections: (The following items were deleted from the chart) 04/01 00:12 00:02 Telemetry/MedSurg (observation) ms3 mw 00:12 00:02 ms3 mw
--- NOTE | 2022-04-01 01:26 | P.HP ---
Certification for Inpatient Patient admitted to: Observation With expected LOS: <2 Midnights Patient will require the following post-hospital care: None Practitioner: I am a practitioner with admitting privileges, knowledge of patient current condition, hospital course, and medical plan of care. Services: Services provided to patient in accordance with Admission requirements found in Title 42 Section 412.3 of the Code of Federal Regulations Patient History Date of Service: 04/01/22 Reason for admission: Chest pain History of Present Illness: 81-year-old male with history of atrial fibrillation on chronic anticoagulation, myasthenia gravis, CHF, CAD who is currently a resident of [facility] presented to the emergency department for chest pain. He reports the chest pain began this afternoon/evening. Patient was seen here in January of this year for NSTEMI, he had a heart catheterization performed on 01/29/2022 which was technically difficult and cardiology here was unable to intervene, patient was then transferred to [facility] with family reports that he had a stent placed but his hospitalization was complicated with pneumonia followed by C. difficile he has been in and out of hospital/[facility] facility since then. Patient was evaluated here in the emergency department initially he was in A. fib RVR with a rate of around 120-130 he was given 3 rounds of IV Lopressor his rate improved and he actually converted back to sinus rhythm with a rate of around 90 his EKG did not show any ST elevations or other STEMI criteria his labs were significant for mildly elevated high sensitive troponin 60.4 elevated BNP 11,735 hemoglobin of 9.9 which is improved from his baseline. Will admit for further evaluation and management of his chest pain. Allergies No Known Allergies Allergy (Verified 01/28/22 06:19) Home Medications: Sertraline HCl 100 tab PO DAILY 10/05/21 Pyridostigmine [place] 60 mg PO BID 11/16/21 predniSONE [Prednisone*] 60 mg PO SEECOM 11/16/21 Amlodipine Besylate 5 mg PO DAILY 01/28/22 Aspirin [Aspirin EC 81 MG] 81 mg PO DAILY 01/28/22 Bupropion HCl [Wellbutrin] 300 mg PO DAILY 01/28/22 Clopidogrel Bisulfate [Plavix*] 75 mg PO DAILY 01/28/22 Ferrous Sulfate [Iron] 325 mg PO DAILY 01/28/22 Furosemide 40 mg PO DAILY 01/28/22 Gabapentin [Neurontin] 400 mg PO BID 01/28/22 Losartan Potassium [Cozaar] 50 mg PO DAILY 01/28/22 Nutritional Supplement [Nutren 1.0] 250 ml OSTOMY QID 01/28/22 Pravastatin [Pravachol*] 40 mg PO DAILY 01/28/22 Spironolactone 50 mg PO DAILY 01/28/22 Tolterodine Tartrate 2 mg PO BID 01/28/22 azaTHIOprine [Azathioprine] 3 tab PO DAILY 01/28/22 carvediloL [Carvedilol] 25 mg PO BID 01/28/22 metroNIDAZOLE [Flagyl] 375 mg PO DAILY 01/28/22 traMADol HCL [Ultram*] 50 mg PO QID 01/28/22 - Past Medical/Surgical History Diabetic: No -: hep cresolved -: high cholesterol -: renal stones -: Arrythmias -: Hypertension -: TIA -: Myasthenia Gravis -: A. fib on anticoagulation -: CAD -: foot surgery9 bone spurs -: Cardiac Stents -: PEg tube Psychosocial/ Personal History[place] Family History Mother -: Hypertension, Diabetes Father -: Heart disease Sister -: Heart disease, Diabetes Brother -: Heart disease - Social History Smoking Status: Never smoker Alcohol use: No CD- Drugs: No Caffeine use: Yes Place of Residence: Home Review of Systems 10-point ROS is otherwise unremarkable Cardiovascular: Chest Pain Physical Examination - Physical Exam General: Alert, In no apparent distress, Oriented x2 HEENT: Atraumatic, PERRLA, Mucous membr. moist/pink, EOMI, Sclerae nonicteric Neck: Supple, 2+ carotid pulse no bruit, No LAD, Without JVD or thyroid abnormality Respiratory: Clear to auscultation bilaterally, Normal air movement Cardiovascular: No edema, Regular rate/rhythm, Normal S1 S2, Irregular heart rate/rhythm (Initially A. fib RVR now converted to sinus rhythm rate 80) Gastrointestinal: Normal bowel sounds, No tenderness Musculoskeletal: No tenderness Integumentary: No rashes Neurological: Normal speech, Normal strength at 5/5 x4 extr, Normal tone, Normal affect - Studies Laboratory Data (last 24 hrs) 03/31/22 22:59: PT 15.7 H, INR 1.42 03/31/22 22:59: Sodium 137, Potassium 4.2, BUN 48 H, Creatinine 1.12, Glucose 96, Magnesium 2.2, Total Bilirubin 0.3, AST 27, ALT 29, Alkaline Phosphatase 129 H, Lipase 235 03/31/22 22:59: WBC 8.8, Hgb 9.9 L, Hct 29.8 L, Plt Count 392 Assessment and Plan - Plan Assessment: Chest pain rule out ACShistory severe CAD Atrial fibrillation on chronic anticoagulation Myasthenia gravis S/p PEG tube Chronic diastolic congestive heart failure Plan: Chest pain rule out ACShistory severe CAD: Patient was transferred from our facility to [facility] and had a stent placed by Dr. Rosaline golden who is currently on-call for facility. Initial high-sensitivity troponin borderline, pain is resolved at this time. Continue patient's home medications we will monitor on telemetry and trend troponin levels. Unable to review records from stent placement at outside hospital appreciate further input from cardiology. Atrial fibrillation on chronic anticoagulation: Continue Eliquis, amiodarone. Monitor on telemetry. Myasthenia gravis: Pyridostigmine continued S/p PEG tube: N.p.o., continue intermediate diet/enteral feeding Chronic diastolic congestive heart failure: Home medications continued DVT PPX: Continue Eliquis Code status: Full Discharge Plan: Detention Plan to discharge in: 24 Hours - Advance Directives Does patient have a Living Will: No Does patient have a Durable POA for Healthcare: No - Code Status/Comfort Care Code Status Assessed: Yes (Full code) Critical Care: No Time Spent Managing Pts Care (In Minutes): 70
[2022-04-01] MEDS ORDERED: ONDANSETRON 4 MG/2 ML VIAL IV PRN (02:01)
[2022-04-01 02:06] VITALS: BMI 3600.8
[2022-04-01] MEDS ORDERED: ACETAMINOPHEN 160 MG/5 ML UCUP ONE ×2 (02:37→07:55)
[2022-04-01] MEDS: ACETAMINOPHEN 160 MG/5 ML UCUP FT PRN ×2 (02:38→08:10)
[2022-04-01 03:21] LABS: Absolute Lymphocytes (CBC) 1.2 K/uL (0.7-4.9); Hematocrit 28.9 % (39.6-49.0); Lymphocytes % 12.2 % (15.3-44.8); MCV 85.1 fL (80-100); MPV 7.2 fL (7.6-11.3); RBC Red Blood Cell Count 3.39 M/uL (4.33-5.43)
[2022-04-01 03:42] LABS: Albumin 2.4 g/dL (3.4-5.0); Bilirubin Total 0.3 mg/dL (0.2-1.0); Protein, Total 5.6 g/dL (6.4-8.2); Troponin High Sensitivity 50.7 pg/mL (<58.9)
[2022-04-01] MEDS ORDERED: APIXABAN 5 MG TABLET ONE (07:54)
[2022-04-01] MEDS ORDERED: CLOPIDOGREL 75 MG TABLET ONE (07:54)
[2022-04-01] MEDS ORDERED: FUROSEMIDE 40 MG TABLET ONE (07:54)
[2022-04-01] MEDS ORDERED: AMIODARONE HCL 200 MG TAB ONE (07:54)
[2022-04-01] MEDS ORDERED: SPIRONOLACTONE 25 MG TABLET ONE (08:00)
[2022-04-01] MEDS ORDERED: SPIRONOLACTONE 25 MG TABLET FT SCH (09:00)
[2022-04-01] MEDS ORDERED: FUROSEMIDE 40 MG TABLET FT SCH (09:00)
[2022-04-01] MEDS ORDERED: APIXABAN 2.5 MG TABLET FT SCH (09:00)
[2022-04-01] MEDS ORDERED: CLOPIDOGREL 75 MG TABLET FT SCH (09:00)
[2022-04-01] MEDS ORDERED: AMIODARONE HCL 200 MG TAB FT SCH (09:00)
[2022-04-01] MEDS ORDERED: PYRIDOSTIGMINE 60 MG TABLET FT SCH (09:00)
--- NOTE | 2022-04-01 11:37 | P.DS ---
Discharge Date: 04/01/22 Disposition: TRANSFER TO CORRECTION Discharge Condition: GOOD Reason for Admission: Chest pain Brief History of Present Illness: Patient is a 81-year-old gentleman who been living at [facility] for the last month. Patient was at [facility] and was treated on the ventilator with pneumonia. Patient has been doing well since being at [facility]. He did have C. difficile which has resolved. Patient has been getting tube feedings as well. He has myasthenia gravis and is swallowing muscles have weakened. Since being on pyridostigmine his strength has been improving. He has been getting physical therapy. Yesterday he has some chest pain and his heart rate was elevated. Family sent him in for further evaluation. In the emergency room he was found to have A. fib. His rate converted to sinus rhythm in the emergency room. Troponins are normal at this time. He is no longer having chest pain. At this time, he should be stable for discharge. Hospital Course: Patient is clinically doing much better. Thyroid ultrasound was ordered. If this is negative he should be stable for discharge. He will transfer back to [facility]. Vital Signs/Physical Exam: Temp Pulse Resp BP Pulse Ox 98.6 F 88 20 117/83 99 04/01/22 08:00 04/01/22 10:00 04/01/22 08:00 04/01/22 10:00 04/01/22 08:00 General: Alert, In no apparent distress, Demented Laboratory Data at Discharge: WBC 9.7 K/uL (4.3-10.9) 04/01/22 03:00 Hgb 9.6 g/dL (13.6-17.9) L 04/01/22 03:00 Hct 28.9 % (39.6-49.0) L 04/01/22 03:00 Plt Count 360 K/uL (152-406) 04/01/22 03:00 PT 15.7 SECONDS (9.5-12.5) H 03/31/22 22:59 INR 1.42 03/31/22 22:59 Sodium 137 mmol/L (136-145) 04/01/22 03:00 Potassium 4.0 mmol/L (3.5-5.1) 04/01/22 03:00 BUN 46 mg/dL (7-18) H 04/01/22 03:00 Creatinine 1.13 mg/dL (0.55-1.3) 04/01/22 03:00 Glucose 106 mg/dL (74-106) 04/01/22 03:00 Magnesium 2.2 mg/dL (1.8-2.4) 03/31/22 22:59 Total Bilirubin 0.3 mg/dL (0.2-1.0) 04/01/22 03:00 AST 27 U/L (15-37) 04/01/22 03:00 ALT 29 U/L (12-78) 04/01/22 03:00 Alkaline Phosphatase 118 U/L (45-117) H 04/01/22 03:00 Lipase 235 U/L (73-393) 03/31/22 22:59 Home Medications: Sertraline HCl 100 tab PO DAILY 10/05/21 Pyridostigmine [place] 60 mg PO BID 11/16/21 predniSONE [Prednisone*] 60 mg PO SEECOM 11/16/21 Amlodipine Besylate 5 mg PO DAILY 01/28/22 Aspirin [Aspirin EC 81 MG] 81 mg PO DAILY 01/28/22 Bupropion HCl [Wellbutrin] 300 mg PO DAILY 01/28/22 Clopidogrel Bisulfate [Plavix*] 75 mg PO DAILY 01/28/22 Ferrous Sulfate [Iron] 325 mg PO DAILY 01/28/22 Furosemide 40 mg PO DAILY 01/28/22 Gabapentin [Neurontin*] 400 mg PO BID 01/28/22 Losartan Potassium [Cozaar] 50 mg PO DAILY 01/28/22 Nutritional Supplement [Nutren 1.0] 250 ml OSTOMY QID 01/28/22 Pravastatin [Pravachol*] 40 mg PO DAILY 01/28/22 Spironolactone 50 mg PO DAILY 01/28/22 Tolterodine Tartrate 2 mg PO BID 01/28/22 azaTHIOprine [Azathioprine] 3 tab PO DAILY 01/28/22 carvediloL [Carvedilol] 25 mg PO BID 01/28/22 metroNIDAZOLE [Flagyl] 375 mg PO DAILY 01/28/22 traMADol HCL [Ultram*] 50 mg PO QID 01/28/22 Amiodarone HCl [Cordarone*] 200 mg FT DAILY #30 tab 04/01/22 Apixaban [Eliquis *] 2.5 mg FT BID #60 04/01/22 New Medications: Amiodarone HCl [Cordarone*] 200 mg FT DAILY #30 tab Apixaban [Eliquis *] 2.5 mg FT BID #60 Physician Discharge Instructions: -DC IV and DC back to [facility] -Follow-up with PCP in 1 to 2 days -Follow-up with Cardiology in 1 to 2 weeks -Please call Dr. Martinez at [phone] if any questions regarding hospital stay -Please call nursing station at [phone] if any nursing or medication questions -Return to the emergency room if symptoms worsen -Speech therapy and physical therapy evaluation at the [facility] Diet: Tube feeds Activity: Fall precautions Followup: Unknown,U [Primary Care Provider] - Time spent managing pt's care (in minutes): 35
[2022-04-01] MEDS ORDERED: NA CHLORIDE 0.9% 1,000 ML IV SCH (12:00)
[2022-04-01] MEDS ORDERED: HYDROCORTISONE SUC 100 MG INJ IV ONE (12:00)
--- NOTE | 2022-04-01 12:52 | RAD REPORT ---
EXAM DESCRIPTION: US - Thyroid Para Parotid Gland - 04/01/2022 12:41 pm CLINICAL HISTORY: Neck pain; thyromegaly COMPARISON: Head C Spine Mpr Wo Con dated 04/22/2021 FINDINGS: The isthmus of the thyroid contains 18 x 17 mm isoechoic nodule. The right lobe of the thyroid is essentially replaced by a large mildly echogenic nodule measuring 4. 7 x 3.4 cm. The left lobe of the thyroid measures 4.9 x 2.7 x 2.0 cm. Several small hypoechoic nodules are presen t largest measuring 9 mm. IMPRESSION: Multinodular thyroid goiter as detailed above.
[2022-04-01] MEDS ORDERED: HYDROCORTISONE SUC 100 MG INJ ONE (13:40)
[2022-04-01 14:43] VITALS: BP 113/78; TEMP 97.6; O2SAT 93
[2022-04-01] MEDS ORDERED: ATORVASTATIN 10 MG TAB FT SCH (21:00)
--- NOTE | 2022-04-02 13:08 | RAD REPORT ---
EXAM DESCRIPTION: XR Chest, 1 View CLINICAL HISTORY: CHEST PAIN TECHNIQUE: Frontal view of the chest. COMPARISON: No relevant prior studies available. FINDINGS: Lungs: Coarsened interstitial markings. No focal consolidation. Pleural space: Unremarkable. No pneumothorax. Heart: Unremarkable. No cardiomegaly. Mediastinum: Unremarkable. Bones/joints: Multilevel spondylosis. No acute fracture. Vasculature: Thoracic aortic atherosclerosis. IMPRESSION: No acute disease. Electronically signed by: Carlos Mar MD 03/31/2022 11:34 PM CDT Due to temporary technical issues with the PACS/Fluency reporting system, reports are being signed by the in house radiologists without review as a courtesy to insure prompt reporting. The interpreting radiologist is fully responsible for the content of the report.
--- NOTE | 2022-04-03 08:20 | EKG ---
Test Date: 2022-04-01 Test Time: 02:54:52 Floor Specialist: RICK MEASUREMENT RESULTS: Intervals: Rate: 87 OR: 176 QRSD: 144 QT: 432 QTc: 519 [place]: P: 89 OR: 176 QRS: -62 T: 63 INTERPRETIVE STATEMENTS: Sinus rhythm with premature atrial complexes Right bundle branch block Left anterior fascicular block Bifascicular block Minimal voltage criteria for LVH, may be normal variant Abnormal ECG Compared to ECG 03/31/2022 23:16:24 Atrial premature complex(es) now present Bifascicular block still present Electronically Signed On 04-03-22 08:12:01 CDT by Willi Quinn
--- NOTE | 2022-04-03 08:21 | EKG ---
Test Date: 2022-03-31 Test Time: 22:31:15 Electrician Telephone: RICK MEASUREMENT RESULTS: Intervals: Rate: 118 NM: QRSD: 136 QT: 374 QTc: 524 [place]: P: NM: QRS: -64 T: 62 INTERPRETIVE STATEMENTS: Atrial fibrillation with rapid ventricular response Right bundle branch block Left anterior fascicular block Bifascicular block Abnormal ECG Compared to ECG 01/28/2022 01:26:04 Ventricular premature complex(es) no longer present Bifascicular block still present Electronically Signed On 04-03-22 08:12:22 CDT by Willi Quinn
--- NOTE | 2022-04-03 08:21 | EKG ---
Test Date: 2022-03-31 Test Time: 23:16:24 Transmission Builder: JESSI MEASUREMENT RESULTS: Intervals: Rate: 81 OK: 176 QRSD: 144 QT: 434 QTc: 504 [place]: P: 22 OK: 176 QRS: -55 T: 48 INTERPRETIVE STATEMENTS: Normal sinus rhythm Right bundle branch block Left anterior fascicular block Bifascicular block Minimal voltage criteria for LVH, may be normal variant Abnormal ECG Compared to ECG 01/28/2022 01:26:04 Left ventricular hypertrophy now present Atrial fibrillation no longer present Ventricular premature complex(es) no longer present Bifascicular block still present Electronically Signed On 04-03-22 08:12:20 CDT by Willi Quinn
== END 2022-04-01 14:18 ==
LOC: ER 22:25 → ERHOLD 04-01 01:10
PROVIDERS: ADMIT Hospitalist; ATTEND Hospitalist
DX: R07.9 Chest pain, unspecified (principal); I48.91 Unspecified atrial fibrillation; I25.10 Atherosclerotic heart disease of native coronary artery without angina pectoris; G70.00 Myasthenia gravis without (acute) exacerbation; I11.0 Hypertensive heart disease with heart failure; I50.32 Chronic diastolic (congestive) heart failure; E78.00 Pure hypercholesterolemia, unspecified; Z93.1 Gastrostomy status; Z95.5 Presence of coronary angioplasty implant and graft; Z86.73 Personal history of transient ischemic attack (TIA), and cerebral infarction without residual deficits; Z86.19 Personal history of other infectious and parasitic diseases; Z79.02 Long term (current) use of antithrombotics/antiplatelets; Z79.82 Long term (current) use of aspirin; Z79.899 Other long term (current) drug therapy; Z82.49 Family history of ischemic heart disease and other diseases of the circulatory system; Z83.3 Family history of diabetes mellitus
CPT/HCPCS: 93005 ×3; 85025 ×2; 36415; 83735; 85610; 84484 ×3; 83690; 80053 ×2; 83880; 71045; 76536; 96374; 99283; 87811; J1720; G0378 ×2

== ENCOUNTER 2022-04-02 10:01 | Emergency (ER) | payer OTHER ==
--- OUTSIDE RECORDS SUMMARY | 2022-04-02 10:15 | XMS REPORT | Continuity of Care Document ---
:1940 Author Organization [facility] t Address [address] [place] [address] Care Team Providers Name Role Phone Erickson Coleman Primary Care Physician Yaa Mcclain Attending Clinician Unavailable Erickson Marin Attending Clinician Unavailable ML HAYDEN Attending Clinician Unavailable MADELYN LEMON Attending Clinician Unavailable Hany Yanes Attending Clinician Unavailable Doctor Unassigned, [place] Attending Clinician Unavailable Sayda Pak RN Attending Clinician Unavailable MIKEY MONGE Attending Clinician Unavailable MIKEY MONGE Attending Clinician Unavailable Kraig Eden MD Attending Clinician Meo Darling MD Attending Clinician John Castaneda DO [...] Date S carey MEDICARE PART A \\T\\ [id number] 2007 B 00:00:00 [employer] COMMERCIAL [id number] 2013 OUT OF NETWORK 00:00:00 MEDICARE A B [id number] 2007 00:00:00 [employer] INDEMNITY NON [id number] 2013 CONTR 00:00:00 MEDICARE B-[place]: [id number] 2007 [employer] SOL[employer]IONS 00:00:00 [employer] (INDEMNITY) [id number] 2000 00:00:00 Problems Condition Condition Condition Status Onset Resolution Last Treating Co mments Source Name Details Category Date Date Treatment Clinician Date Acute Acute Disease Active Univers respirator respirator 6-25 it y of y failure y failure 00:00: Ale s with with 00 Medical hypoxia hypoxia Branch Ischemic Ischemic Disease Active Unive rs stroke stroke 8-18 ity of 00:00: [address] Allergies, Adverse Reactions, Alerts Allergy Allergy Status Severity Reaction(s) Onset Inactive Treating Comm ents Source Name Type Date Date Clinician No Known DA Active U [facility] All[facility]ie 6-15 Clear s 00:00: [address] No Known DA Active U 0 [facility] Allergie [address] 00:00: [address] No Known DA Active U 0 [facility] Allergie 6-05 West s 00:00: [address] NO KNOWN Drug Active Univers ALLERGIE Class ity of S [facility] NO KNOWN Allergy Active [facility] Social History Social Habit Start Date Stop Date Quantity Comments Source Exposure to 2022-02-02 2022-02-12 Not sure [facility] SARS-CoV-2 00:00:00 20:35:00 [facility] (event) Branch Tobacco Comment 2022-02-10 2022-02-10 Per Universit y of 00:00:00 00:00:00 [facility] Tobacco use and 2022-02-10 2022-02-10 Smokeless tobacco Un iversity of exposure 00:00:00 00:00:00 non-user [facility] Alcohol intake 2022-02-10 2022-02-10 Lifetime University of 00:00:00 00:00:00 non-drinker [facility] (finding) [place] Sex Ass[birth year] At [birth year] Universit y of 00:00:00 00:00:00 [facility] Smoking Status Start Date Stop Date Source Never smoked tobacco [facility] Medications Ordered Filled Start Stop Current [...] ity of tablet 10:47: 00:00 every 2 [place] 49 :00 (two) Medical days. Branch insulin 2021-2021- No 5U inject 5 Unive rs glargine 02-28- Units ity of 100 unit/mL 10:47: 00:00 under the [place] injection 49 :00 skin at Medical bedtime. Branch fidaxomicin 2-0 Yes 200mg Take 1 Uni vers 200 mg 7-13 tablet ity of tablet 00:00: through [place] 00 enteral Medical tube in Branch the morning and 1 tablet in the evening. carvediloL 2022-0 Yes 25mg Take 1 Unive rs 25 mg 7-13 tablet by ity of tablet 00:00: mouth in [place] 00 the Medical morning Branch and 1 tablet in the evening. Take with meals. furosemide 2-0 Yes 40mg Take 1 Unive rs 40 mg 7-13 tablet by ity of tablet 00:00: mouth in [place] 00 the Medical morning. Branch fidaxomicin 2-0 Yes 200mg Take 1 Uni vers 200 mg 7-13 tablet ity of tablet 00:00: through [place] 00 enteral Medical tube in Branch the morning and 1 tablet in the evening. carvediloL 2022-0 Yes 25mg Take 1 Unive rs 25 mg 7-13 tablet by ity of tablet 00:00: mouth in [place] 00 the Medical morning Branch and 1 tablet in the evening. Take with meals. furosemide 2-0 Yes 40mg Take 1 Unive rs 40 mg 7-13 tablet by ity of tablet 00:00: mouth in [place] 00 the Medical morning. Branch fidaxomicin 2022-0 Yes 200mg Take 1 Uni vers 200 mg 7-13 tablet ity of tablet 00:00: through [place] 00 enteral Medical tube in Branch the morning and 1 tablet in the evening. carvediloL 2022-0 Yes 25mg Take 1 Unive rs 25 mg 7-13 tablet by ity of tablet 00:00: mouth in [place] 00 the Medical morning Branch and 1 tablet in the evening. Take with meals. furosemide 2022-0 Yes 40mg Take 1 Unive rs 40 mg 7-13 tablet by ity of tablet 00:00: mouth in [place] 00 the Medical morning. Branch pantoprazol 2021- [...] dose [place] mg 00 :03 on Sat [facility] 02/20/22 at Branch 2000, Until Discontinu [...] (after Medical last Branch modificati on) on [place] 02/18/22 at 2100, Until Discontinu ed, Routine KCL 20 2021- No 40meq 40 mEq, Univer s mEq/15 mL 02-18 Enteral, ity o f solution 40 14:00: 13:30 ONCE, 1 [place] mEq 00 :00 dose, On [facility] 02/18/22 Branch at 0900, Routine piperacilli 2021- No 3.375g 3.375 g, Univers n-tazobacta 02-17 0705 IV ity of m (ZOSYN) 19:00: 15:30 Piggyback, [place] 3.375 g in 00 :00 Q8H ABX, 9 Med ical NaCl 0.9% doses, Branch (NS) 50 mL First dose MINI-BAG (after last reorder) on [facility] 02/17/22 at 1400, Last dose on Sat02/20/22 [...] :00 dose, On Medica l NaCl 0.9% [facility] (NS) 02/15/22 at piggyback 1045, 250 mL levalbutero Yes .63mg 0.63 mg, U nivers l (XOPENEX) 02-14 Inhalation it y of nebulizer 17:00: , Q6H, [place] solution 00 First dose Medic al 0.63 mg (after Branch last modificati on) on Sat02/14/22 at 1200, Until Discontinu ed, Routine
Approved by: [facility] furosemide No 20mg 20 mg, Univ ers (LASIX) 10 02-14 Enteral, ity of mg/mL 15:00: 13:06 BID, First [place] solution 20 00 :42 dose on Medic al mg [facility] 02/14/22 at 1000, Until Discontinu [...] dose Medic al 0.63 mg on Sat [place] 02/13/22 at 1200, Until Discontinu ed, Routine
Approved by: [facility] famotidine No 20mg 20 mg, [facility] [place] [facility] ers (PEPCID) 40 02-13 0705 Enteral, ity [...] [place] mEq 00 :00 dose, On Medical [facility] 02/13/22 at 0800, Routine NaCl 0.9% Yes [...] 15 Starting Medi pierre mL on Sat [place] 02/13/22 at 0645, Until Discontinu ed, Routine, Local anesthesia atorvastati Yes 10mg 10 mg, Univ ers n (LIPITOR) 02-13 Oral, QHS, it y of tablet 10 02:00: First dose [place] mg 00 on [facility] 02/12/22 at Branch 2100, Until Discontinu ed, Routine amiodarone Yes 200mg 200 mg, Uni vers (PACERONE) 02-13 Oral, BID, ity of tablet 200 01:00: First dose [place] mg 00 on [facility] 02/12/22 at Branch 2000, Until Discontinu ed, Routine carvediloL Yes 25mg 25 mg, Unive rs (COREG) 02-12 Oral, BID ity of tablet 25 22:00: MEALS, [place] mg 00 First dose Medical on Sat [place] 02/12/22 at 1700, Until Discontinu ed, Routine [...] mg 00 :59 First dose Medical on [facility] 02/11/22 at 0600, Until Discontinu ed, Routine clopidogreL 2021- No 75mg 75 mg, Uni vers (PLAVIX) 75 02-11 0705 Enteral, ity of mg tablet 02:00: 03:08 DAILY, [place] 75 mg 00 :45 First dose Medical on [facility] Branch 02/10/22 at 2100, Until Discontinu ed, Routine sulfur 2021- No [id number] 5mL 5 mL, Unive rs hexafluorid 02-10 Intravenou i ty of e microsphr 14:30: 14:30 s, ONCE, 1 [place] (LUMASON) 00 :00 dose, On Medica l injection 5 Sat Branch mL 02/10/22 at 0930, Routine
produce service team member approving Restricted medication : GENNY MCALLISTER aspirin No 81mg 81 mg, Univers chewable 02-10 Enteral, ity of tablet 81 14:00: 01:46 DAILY, [place] mg 00 :38 First dose Medical on [facility] Branch 02/10/22 at 0900, Until Discontinu ed, Routine chlorhexidi Yes 15mL 15 mL, [facility] [place] [facility] ers ne 02-10 Oral ity of (PERIDEX) 13:00: ([place] 0.12 % 00 Spit Out), Medical mouthwash BID, First Bran ch 15 mL dose on [facility] 02/10/22 at 0800, Until Discontinu ed, Routine famotidine No 20mg 20 mg, [facility] [place] [facility] ers (PEPCID) 40 02-10 Enteral, ity of mg/5 mL (8 13:00: 15:54 BID, First [place] mg/mL) 00 :43 dose on Medical suspension [facility] Branch 20 mg 02/10/22 at 0800, Until Discontinu ed, Routine
Indicatio n for use: Mechanical Ventilatio n > 48 hours furosemide No 40mg 40 mg, [facility] [place] [facility] ers (LASIX) 02-10 Slow IV ity of injection 13:00: 01:47 Push, [place] 40 mg 00 :25 Q12H, Medical First dose Branch on [facility] 02/10/22 at 0800, Until Discontinu ed, Routine piperacilli 2021- No 3.375g 3.375 g, [facility] n-tazobacta 02-10 IV ity [...] by ity of tablet 07:33: 00:00 mouth. [place] 37 :00 [facility] gabapentin 2021- No 400mg Take 400 U nivers 400 mg 02-10 06-25 mg by ity of capsule 07:32: 00:00 mouth. [place] 16 :00 [facility] fentaNYL PF 2021- No 25ug/h 25-200 U [...] [place] mg 00 :00 dose, On [facility] Sat Branch 02/09/22 at 2115, STAT [...] mg by ity of tablet 16:16: mouth. [address] SERTraline 2020-08 Yes 125mg Take 125 Un teri 100 mg 2-29 mg by ity of tablet 16:16: mouth. [address] SERTraline 2020-08 Yes 125mg Take 125 Un teri 100 mg 2-29 mg by ity of tablet 16:16: mouth. [address] SERTraline 2020-08 Yes 125mg Take 125 Un teri 100 mg 2-29 mg by ity of tablet 16:16: mouth. [address] carvediloL 2020-08 Yes 25mg Take 25 mg U nivers 25 mg 2-29 by mouth. ity of tablet 16:16: [address] gabapentin 2020-08 Yes 400mg Take 400 Un teri 400 mg 2-29 mg by ity of capsule 16:16: mouth. [address] carvediloL 2020-08 Yes 25mg Take 25 mg U nivers 25 mg 2-29 by mouth. ity of tablet 16:16: [address] gabapentin 2020-08 Yes 400mg Take 400 Un teri 400 mg 2-29 mg by ity of capsule 16:16: mouth. [address] carvediloL 2020-08 Yes 25mg Take 25 mg U nivers 25 mg 2-29 by mouth. ity of tablet 16:16: [address] gabapentin 2020-08 Yes 400mg Take 400 Un teri 400 mg 2-29 mg by ity of capsule 16:16: mouth. [address] carvediloL 2020-08 Yes 25mg Take 25 mg U nivers 25 mg 2-29 by mouth. ity of tablet 16:16: [place] 02 Medical Branch gabapentin 2020-08 Yes 400mg Take 400 Un teri 400 mg 2-29 mg by ity of capsule 16:16: mouth. [place] Medical Branch pantoprazol 2020-08 Yes Univer s e 40 mg EC 2-14 ity of tablet 00:00: [place] [facility] pravastatin 2020-08 Yes Univer s 40 mg 2-14 ity of tablet 00:00: [place] [facility] pantoprazol 2020-08 Yes Univer s e 40 mg EC 2-14 ity of tablet 00:00: [place] [facility] pantoprazol 2020-08 Yes Univer s e 40 mg EC 2-14 ity of tablet 00:00: [place] [facility] Branch pantoprazol 2020-08 Yes Univer s e 40 mg EC 2-14 ity of tablet 00:00: [place] [facility] Branch pantoprazol 2020-08 Yes Univer s e 40 mg EC 2-14 ity of tablet 00:00: [place] [facility] Branch pravastatin 2020-08 Yes Univer s 40 mg 2-14 ity of tablet 00:00: [place] [facility] Branch pantoprazol 2020-08 Yes Univer s e 40 mg EC 2-14 ity of tablet 00:00: [place] [facility] Branch pravastatin 2020-08 Yes Univer s 40 mg 2-14 ity of tablet 00:00: [place] [facility] Branch pantoprazol 2020-08 Yes Univer s e 40 mg EC 2-14 ity of tablet 00:00: [place] [facility] Branch pravastatin 2020- Yes Univer s 40 mg 2-14 ity of tablet 00:00: [place] [facility] Branch pravastatin 2020-2021- No Unive rs 40 mg 2-14 07-13 ity of tablet 00:00: 00:00 [place] 00 :00 Medical Branch traMADoL 50 2020- Yes Univer s mg tablet 2-12 ity of 00:00: [place] [facility] traMADoL 50 2020- Yes Univer s mg tablet 2-12 ity of 00:00: [place] [facility] Branch traMADoL 50 2020-08 Yes Univer s mg tablet 2-12 ity of 00:00: [place] [address] Medical Branch traMADoL 50 2020-08 Yes Univer [...] s mg tablet 1-18 ity of 00:00: [place] Medical Branch losartan 50 2020-08- No Unive rs mg tablet 1-18 06-25 ity of 00:00: 00:00 [place] 00 :00 Medical Branch clopidogreL 2020-08 Yes Univer s 75 mg 0-21 ity of tablet 00:00: [place] [facility] clopidogreL 2020-08 Yes Univer s 75 mg 0-21 ity of tablet 00:00: [place] [facility] amLODIPine 2020- Yes Univers 5 mg tablet 0-21 ity of 00:00: [place] [address] Medical Branch clopidogreL 2020-08 Yes Univer s 75 mg 0-21 ity of tablet 00:00: [place] [facility] Branch clopidogreL 2020-08 Yes Univer s 75 mg 0-21 ity of tablet 00:00: [place] [address] Medical Branch clopidogreL 2020-08 Yes Univer s 75 mg 0-21 ity of tablet 00:00: [place] [address] Medical Branch amLODIPine 2020- Yes Univers 5 mg tablet 0-21 ity of 00:00: [place] [address] Medical Branch clopidogreL 2020-08 Yes Univer s 75 mg 0-21 ity of tablet 00:00: [place] [address] Medical Branch amLODIPine 2020-08 Yes Univers 5 mg tablet 0-21 ity of 00:00: [place] [address] Medical Branch clopidogreL 2020-08 Yes Univer s 75 mg 0-21 ity of tablet 00:00: [place] [address] Medical Branch amLODIPine 2020- Yes Univers 5 mg tablet 0-21 ity of 00:00: [place] Medical Branch amLODIPine 2020-2021- No Univer s 5 mg tablet 0-21 07-13 ity of 00:00: 00:00 [place] 00 :00 Medical Branch aspirin 81 2019-2020- [...] [facility] tablet 15:01: mouth Medical 48 daily. [place] clopidogreL Yes 75mg QD Take [address] (PLAVIX) 75 8-19 by mouth Luke s mg tablet 15:01: daily. Medica l 48 [place] atorvastati 2020- No 80mg QD Take [address] n (LIPITOR) 8-06 04- tablet (80 L ukes 80 MG 00:00: 23:59 mg total) Medica l tablet 00 :00 by mouth Center nightly. Ditropan Ditropan Yes [place] 1/2 tablet Common 9 [place] [facility] 00:00: - [facility] Testosteron Testosteron Yes [place] 1 ml Common e Cypionate e Cypionate -03 [place] [facility] 00:00: - [facility] Coreg Coreg Yes [place]a not Common [place] defined Spirit [facility] Isosorbide Isosorbide Yes Elaina 1 tablet Common Mononitrate Mononitrate [place] in the Spirit ER ER morning [facility] Vitamin D3 Vitamin D3 Yes Elaina 1 capsule Common [place] [facility] Potassium Potassium Yes Elaina 1 tablet Common Chloride Chloride [place] with food Spirit Porsche ER Porsche ER [facility] Gabapentin Gabapentin Yes Elaina 1 capsule Common [place] Spirit [facility] Zocor Zocor Yes [place] 1 tablet Common [place] in the [facility] evening [facility] Lotrisone Lotrisone Yes [place]a APPLY Com mon [place] TOPICALLY Spirit TO [facility] ONCE A DAY St AT BED [facility] Amlodipine Amlodipine Yes Elaina 1 tablet Common Besylate Besylate Skyl[facility] rit [facility] Wellbutrin Wellbutrin Yes [place] 1 tablet Common XL XL [place] in the Spirit morning [facility] Hydrochloro Hydrochloro Yes Elaina 1 tablet Common thiazide thiazide [place] in the pir morning [facility] Vitamin Vitamin Yes Elaina not Common [id number] X32-Zajxe [place] defined [facility] Acid Acid [facility] Zoloft Zoloft Yes Elaina 1 tablet Common [place] [facility] Pantoprazol Pantoprazol Yes Elaina 1 tablet Common e Sodium e Sodium [place] [facility] Nuvigil Nuvigil Yes [place] 1 tablet Comm on [place] in the [facility] morning [facility] Omeprazole Omeprazole Yes [place] 1 capsule Common [place] [facility] Vital Signs Vital Name Observation Time Observation Value Comments Source HEIGHT 2020-04-04 00:00:00 182.9 cm WEIGHT 2020-04-04 00:00:00 97.9 kg Systolic blood 2022-02-28 17:12:00 130 mm[Hg] Univer sity of pressure [facility] Diastolic blood 2022-02-28 17:12:00 76 mm[Hg] [facility] Heart rate 2022-02-28 17:12:00 83 /min [facility] Body temperature 2022-02-28 17:12:00 36.61 Annalise [facility] Respiratory rate 2022-02-28 17:12:00 18 /min [facility] Oxygen saturation in 2022-02-28 17:12:00 89 /min [facility] blood by [facility] Pulse oximetry Branch Body weight 2022-02-27 08:27:00 82.963 kg Universi [facility] BMI 2022-02-27 08:27:00 27.00 kg/m2 Universi [facility] Body height 2022-02-10 08:00:00 175.3 cm Universi [facility] Body height 2021-08-16 22:23:00 175.3 cm Universi [facility] Body weight 2021-08-16 22:23:00 [facility].895 [facility] BMI 2021-08-16 22:23:00 30.57 kg/m2 Universi [facility] HEIGHT 2020-04-04 00:00:00 182.9 cm WEIGHT 2020-04-04 00:00:00 97.9 kg Procedures Procedure Date / Time Performing Clinician Source Performed EXTERNAL PROVIDER RECORDS 2022-03-09 05:01:00 Doctor Unassigned, [facility] Babbitt [facility] Branch COVID-19 (ID NOW RAPID 2022-02-28 17:05:00 Mikey Monge [facility] TESTING) [facility] XR CHEST 1 VW 2022-02-28 16:13:13 Mcallister, [facility] BASIC METABOLIC PANEL 2022-02-28 10:37:00 Baabr Mcallister [facility] (NA, K, CL, CO2, GLUCOSE, Medica l Branch BUN, CREATININE, CA) CBC WITHOUT DIFF 2022-02-28 10:37:00 Babar Mcallister [facility] PREPARE PACKED RBC 2022-02-28 05:15:05 Moe Darling [facility] [place] [facility] US DUPLEX VENOUS ARM 2022-02-26 13:32:00 John Castaneda [facility] RIGHT - BY VASCULAR LAB [facility] Branch CBC WITHOUT DIFF 2022-02-26 08:36:00 John Castaneda [facility] CBC WITHOUT DIFF 2022-02-25 22:15:00 John Castaneda [facility] POCT GLUCOSE (AUTOMATED) 2022-02-25 11:21:00 Moe Darling [facility] CBC WITHOUT DIFF 2022-02-25 09:40:00 John Castaneda [facility] TRANSFUSE PACKED RBC 2022-02-25 05:54:00 John Castaneda [facility] [place] [facility] PREPARE PACKED RBC 2022-02-25 05:40:24 John Castaneda [facility] POCT GLUCOSE (AUTOMATED) 2022-02-25 04:44:00 Moe Darling [facility] CBC WITHOUT DIFF 2022-02-25 01:06:00 [facility] PANEL IDENTIFICATION 2022-02-24 20:38:00 Moe Darling [facility] XR KUB 2022-02-24 20:24:00 Shannon Khoury [facility] CBC WITHOUT DIFF 2022-02-24 18:47:00 Leonel [facility] HB ABO GROUPING 2022-02-24 18:47:00 Leonel [facility] CBC WITHOUT DIFF 2022-02-24 08:07:00 Leonel John [facility] COMP. METABOLIC PANEL 2022-02-24 08:06:00 Leonel [facility] ([id number]) [facility] COMP. METABOLIC PANEL 2022-02-23 09:01:00 Leonel [facility] ([id number]) [facility] CBC WITHOUT DIFF 2022-02-23 09:01:00 John Castaneda [facility] PREPARE PACKED RBC 2022-02-23 05:15:06 Moe Darling [facility] MAGNESIUM 2022-02-22 08:36:00 Leonel John [facility] COMP. METABOLIC PANEL 2022-02-22 08:36:00 Leonel [facility] ([id number]) [facility] CBC WITHOUT DIFF 2022-02-22 08:36:00 Leonel [facility] TRANSFUSE PACKED RBC 2022-02-21 21:00:00 John [facility]eda [facility] [place] [facility] OVA AND PARASITE EXAM 2022-02-21 12:03:00 Cat Collado Uni [facility] FECAL [facility] CBC WITHOUT DIFF 2022-02-21 09:09:00 [facility] [place] PHOSPHORUS 2022-02-21 09:08:00 Tamia Lofton Emmons o [facility] [place] [facility] Medical [place] MAGNESIUM 2022-02-21 09:08:00 Kirsty [facility] COMP. METABOLIC PANEL 2022-02-21 09:08:00 John Castaneda [facility] ([id number]) [facility] CBC WITHOUT DIFF 2022-02-21 09:08:00 Leonel [facility] CLOSTRIDIUM DIFFICILE 2022-02-20 23:32:00 Cat Collado [facility] TOXIN [facility] CBC WITHOUT DIFF 2022-02-20 22:32:00 John Castaneda [facility] FL MODIFIED BARIUM 2022-02-20 20:20:00 John Castaneda [facility] SWALLOW [facility] CBC WITHOUT DIFF 2022-02-20 16:05:00 Leonel [facility] OCCULT (GUAIAC) BLOOD 2022-02-20 11:43:00 Manoj Church [facility] OSMOLALITY, SERUM OR 2022-02-20 08:46:00 Tamia Lofton [facility] PLASMA [facility] COMP. METABOLIC PANEL 2022-02-20 08:46:00 John Castaneda [facility] ([id number]) [facility] CBC WITHOUT DIFF 2022-02-20 08:46:00 Leonel [facility] N-TERMINAL PRO-BNP 2022-02-20 08:46:00 Tamia Lofton [facility] PANEL IDENTIFICATION 2022-02-20 06:40:00 Moe Darling [facility] ABORH CONFIRMATION (LAB 2022-02-20 06:40:00 Manoj Church [facility] ONLY) [facility] HB ABO GROUPING 2022-02-20 04:00:00 Manoj Church [facility] CBC WITH DIFF 2022-02-19 15:33:00 Leonel John [facility] BASIC METABOLIC PANEL 2022-02-19 15:32:00 [facility] (NA, K, CL, CO2, GLUCOSE, Medica l Branch BUN, CREATININE, CA) BASIC METABOLIC PANEL 2022-02-18 08:24:00 [facility] (NA, K, CL, CO2, GLUCOSE, Medica l Branch BUN, CREATININE, CA) CBC WITHOUT DIFF 2022-02-18 08:24:00 Esvin [facility] PHOSPHORUS 2022-02-17 10:49:00 Kirsty [facility] ALBUMIN 2022-02-17 10:49:00 Kirsty [facility] MAGNESIUM 2022-02-17 10:49:00 Kirsty [facility] BASIC METABOLIC PANEL 2022-02-17 10:49:00 Saleem [facility] (NA, K, CL, CO2, GLUCOSE, Medica l Branch BUN, CREATININE, CA) CBC WITH DIFF 2022-02-17 10:49:00 Saleem [facility] SODIUM 2022-02-16 22:18:00 Kirsty [facility] XR CHEST 1 VW 2022-02-16 16:37:00 Kirsty [facility] FERRITIN SERUM 2022-02-16 15:41:00 Kirsty [facility] IRON 2022-02-16 15:41:00 Kirsty [facility] TOTAL IRON BINDING 2022-02-16 15:41:00 Tamia Lofton [facility] PROCALCITONIN 2022-02-16 15:41:00 Elicia Mongeshua [facility] POTASSIUM, URINE RANDOM 2022-02-16 15:31:00 Kirsty [facility] SODIUM, URINE RANDOM 2022-02-16 15:31:00 Kirsty Msacosta [facility] MAGNESIUM 2022-02-16 09:57:00 Asaally [facility] BASIC METABOLIC PANEL 2022-02-16 09:57:00 [facility] (NA, K, CL, CO2, GLUCOSE, Medica l Branch BUN, CREATININE, CA) N-TERMINAL PRO-BNP 2022-02-16 09:57:00 Tamia Lofton [facility] BASIC METABOLIC PANEL 2022-02-15 08:49:00 [facility] (NA, K, CL, CO2, GLUCOSE, Medica l Branch BUN, CREATININE, CA) CBC WITH DIFF 2022-02-15 08:49:00 [facility] BASIC METABOLIC PANEL 2022-02-14 21:19:00 [facility] (NA, K, CL, CO2, GLUCOSE, Medica l Branch BUN, CREATININE, CA) XR CHEST 1 VW 2022-02-14 20:47:00 [facility] SPUTUM CULTURE 2022-02-14 17:01:00 Moe Darling [facility] MAGNESIUM 2022-02-14 08:52:00 [facility] BASIC METABOLIC PANEL 2022-02-14 08:52:00 Mcallister [facility] (NA, K, CL, CO2, GLUCOSE, Medica l Branch BUN, CREATININE, CA) CBC WITH DIFF 2022-02-14 08:52:00 [facility] BASIC METABOLIC PANEL 2022-02-13 19:08:00 Moe Darling [facility] (NA, K, CL, CO2, GLUCOSE, Medica l Branch BUN, CREATININE, CA) MAGNESIUM 2022-02-13 10:28:00 [facility] BASIC METABOLIC PANEL 2022-02-13 10:28:00 [facility] (NA, K, CL, CO2, GLUCOSE, Medica l Branch BUN, CREATININE, CA) CBC WITH DIFF 2022-02-13 10:28:00 [facility] XR CHEST 1 VW 2022-02-12 13:26:00 [facility] BASIC METABOLIC PANEL 2022-02-12 10:06:00 Moe Darling [facility] (NA, K, CL, CO2, GLUCOSE, Medica l Branch BUN, CREATININE, CA) CBC WITHOUT DIFF 2022-02-12 10:06:00 Kraig Eden [facility] ABG+COOX+NA+K+GLU+CA2+ 2022-02-12 09:49:00 Moe Darling [facility] POCT GLUCOSE (AUTOMATED) 2022-02-12 06:10:00 Kraig Eden [facility] BASIC METABOLIC PANEL 2022-02-11 22:44:00 [facility] (NA, K, CL, CO2, GLUCOSE, [facility] Medica l Branch BUN, CREATININE, CA) ACTIVATED PARTIAL 2022-02-11 22:29:00 Kraig Eden [facility] SPUTUM CULTURE 2022-02-11 22:07:00 Lori [facility] ACTIVATED PARTIAL 2022-02-11 11:11:00 Meek [facility] CBC WITHOUT DIFF 2022-02-11 09:41:00 Meek [facility] TROPONIN I 2022-02-10 22:11:00 Moe Darling [facility] CRITICAL CARE 2022-02-10 21:31:09 Kraig Eden [facility] TROPONIN I 2022-02-10 15:53:00 Moe Darling [facility] ACTIVATED PARTIAL 2022-02-10 15:53:00 [facility] (TTE) 2022-02-10 14:20:50 Palomo Darlingdro [facility] COMPLETE W/ CONTRAST Medical Bra [facility] CBC WITH DIFF 2022-02-10 09:35:00 Lisset Moe [facility] URINE CULTURE 2022-02-10 08:59:00 Moe Darling [facility] MAGNESIUM 2022-02-10 08:02:00 Lisset Moe [facility] TROPONIN I 2022-02-10 08:02:00 Moe Darling [facility] COMP. METABOLIC PANEL 2022-02-10 08:02:00 [id number] ACTIVATED PARTIAL 2022-02-10 08:02:00 Moe Darling [facility] THRFormerly [facility] MRSA / MSSA SCREEN BY 2022-02-10 08:02:00 Moe Darling Un [facility] AC PANEL 20 + LACTIC ACID 2022-02-10 07:45:00 Stan Darling [facility] XR CHEST 1 VW 2022-02-10 06:45:18 Moe Darling [facility] NV INSERT EMERGENCY 2022-02-10 05:30:00 Kraig Eden [facility] ENDOTRACH AIRWAY Medical Branch XR CHEST 1 VW 2022-02-10 02:08:04 Kraig Eden o [facility] HEPARIN ANTI-XA, 2022-02-10 00:29:00 Kraig Eden [facility] UNFRACTIONATED HEPARIN Medical B ranch AC PANEL 20 + LACTIC ACID 2022-02-10 00:15:00 Kraig Eden [facility] CT HEAD WO CONTRAST 2022-02-09 23:50:32 Kraig Eden [facility] CT THORAX WO CONTRAST 2022-02-09 23:50:32 Kraig Eden [facility] URINALYSIS 2022-02-09 23:26:00 Kraig Eden o [facility] URINE DRUG (IMMUNOASSAY) 2022-02-09 23:26:00 Kraig Eden [facility] - COMPREHENSIVE DRUG Medical Bra nc SCREEN W/O REFLEX COVID-19 (ID NOW RAPID 2022-02-09 23:14:00 Kraig Eden [facility] TESTING) Medical Branch BLOOD CULTURE SCREEN 2022-02-09 23:13:00 Kraig Eden [facility] BLOOD CULTURE SCREEN 2022-02-09 23:11:00 Kraig Eden [facility] LIPASE 2022-02-09 23:11:00 Kraig Eden [facility] TROPONIN I 2022-02-09 23:11:00 Kraig Eden [facility] COMP. METABOLIC PANEL 2022-02-09 23:11:00 Kraig Eden [facility] ([id number]) [facility] CBC WITH DIFF 2022-02-09 23:11:00 Kraig Eden [facility] PROTHROMBIN TIME / INR 2022-02-09 23:11:00 Kraig Eden [facility] ACTIVATED PARTIAL 2022-02-09 23:11:00 Kraig Eden [facility] THRFormerly [facility] N-TERMINAL PRO-BNP 2022-02-09 23:11:00 Kraig Eden [facility] AC PANEL 20 + LACTIC ACID 2022-02-09 23:01:00 [facility] & RHYTHM 2022-02-09 22:50:[address] [facility] XR CHEST 1 VW 2022-02-09 22:46:00 Kraig Eden [facility] EXTERNAL PROVIDER RECORDS 2022-02-09 05:01:00 Doctor Unassigned, [facility] EMERGENCY DEPARTMENT 2022-02-09 05:01:00 Doctor Unassigned, [facility] DOCUMENTS [place] [facility] [id number] 2022-01-31 00:00:00 RASSA [facility] [id number] 2022-01-31 00:00:00 RASSA [facility] [id number] 2022-01-31 00:00:00 RASSA [facility] [id number] 2022-01-31 00:00:00 RASSA [facility] [id number] 2022-01-31 00:00:00 RASSA [facility] EXTERNAL PROVIDER RECORDS 2021-09-12 06:01:00 Doctor Unassigned, [facility] [place] [facility] MEDICAL RELEASE/CLEARANCE 2021-08-28 06:01:00 Doctor Unassigned, [facility] FORMS [place] [facility] Plan of Care Planned Activity Planned Date [...] 00:00:00 (1 of 1 - Medical Center [id number] PCV13) [code = PNEUMOCOCCAL 65+ YRS (1 of 1 - [id number] PCV13)] Future Scheduled 1992 SHINGLES VACCINES (1 [...] 2022-01-31 Inpatient UR Ray, Yaa HCACL INTE [id number] [facility] 13:26:00 [id number] [facility] 2021-09-13 Outpatient [facility] [id number] Common 12:50:58 [id number] [facility] 2021-09-13 Outpatient [facility] [id number] Common 12:29:13 [id number] [facility] 2021-09-13 Outpatient zzzErickson [facility] [id number] Common 12:24:25 , Erickson [id number] [facility] 2021-09-13 Outpatient NATALIE Coleman [facility] [id number] Common 11:21:20 Erickson [id number] [facility] 2021-09-01 Inpatient R CATRACHO, [facility] SOR [id number] Univers 15:41:48 ML ity [facility] 2020-04-05 Inpatient ER BERSHAD, [facility] Neurology [id number] [facility] 02:12:00 MADELYN 2020-01-19 Inpatient Dabaghi, HCAPM LABO [id number] [facility] 16:02:00 [facility] [id number] [facility] 2022-03-09 2022-03-09 Orders Doctor OLIVIER [id number] [id number] Univers 00:00:00 00:00:00 Only Unassigned, GILBERTO 350.1.13.10 ity of [place] [facility] 4.2.7.2.686 Patel as [phone] [facility] 009 Branch 2022-03-01 2022-03-01 Transition ROWDY Pak 1.2.840.114 [id number] Univers 00:00:00 00:00:00 of Care Sayda BORRERO 350.1.13.10 it y [place] [id number] [facility] 403 Branch 2022-02-09 2022-02-28 Inpatient X MIKEY MONGE [facility] KADE 1 [id number] Univers 17:40:00 13:54:00 MIKEY MONGE ity of [facility] 2022-02-09 2022-02-28 [facility] Kraig Eden [facility] 1.2.840.1 [id number] Univers 17:40:00 13:54:00 Encounter Moe Darling [facility] 350.1.13 .10 ity of Mikey Monge 4.2.7.2.686 [facility] [phone] [address] ([facility]) 2022-02-02 2022-02-09 Inpatient Yaa Hay HCACL INTE [id number] [facility] 11:22:00 13:34:00 [id number] [facility] 2022-01-18 2022-01-18 Outpatient ERICKSON_R [facility] 86 - Joiner 03:05:00 03:05:00 602 [facility] 2022-01-18 2022-01-18 Outpatient Jared [facility] [id number] 00:00:00 00:00:00 Erickson [id number] Barber [id number] 2022-01-09 2022-01-09 Outpatient ERICKSON_R [facility] 86 - [place] 01:07:00 01:07:00 524 [facility] 2022-01-09 2022-01-09 Outpatient Jared [facility] [id number] 00:00:00 00:00:00 Erickson [id number] Barber [id number] 2021-12-26 Outpatient ERICKSON_R [facility] [id number] - Jo[place] 03:29:00 03:29:00 510 [facility] 2021-12-26 2021-12-26 Outpatient Jared [facility] [id number] 00:00:00 00:00:00 Erickson [id number] Barber [id number] 2021-11-07 2021-11-07 Emergency E KESSLER, K[place] K[place] 7500 Memoria 14:09:00 17:46:00 CORAZON [facility] 2021-11-06 2021-11-06 Outpatient ERICKSON_R [facility] [id number] [place] 11:01:00 11:01:00 321 [facility] 2021-11-06 2021-11-06 Outpatient Jared [facility] [id number] 00:00:00 00:00:00 Erickson [id number] Barber [id number] [id number] 2021-11-06 Outpatient Coleman, [facility] [id number] 00:00:00 00:00:00 Erickson [id number] Barber [id number] 2021-11-03 2021-11-03 Outpatient ERICKSON_R [facility] 86 - [place] 02:00:00 02:00:00 318 [facility] 2021-11-03 2021-11-03 Outpatient Jared, [facility] [id number] 00:00:00 00:00:00 Erickson [id number] Barber [id number] 2021-10-26 2021-10-26 Outpatient ERICKSON_R [facility] 86 [place] 06:49:00 06:49:00 310 [facility] 2021-10-26 2021-10-26 Outpatient Jared, [facility] [id number] 00:00:00 00:00:00 Erickosn [id number] Barber [id number] 2021-10-26 2021-10-26 Outpatient Jared [facility] [id number] 00:00:00 00:00:00 Erickson [id number] Barber [id number] 2021-10-26 2021-10-26 Outpatient Jared [facility] [id number] 00:00:00 00:00:00 Erickson [id number] Barber [id number] 2021-10-24 2021-10-24 Outpatient ERICKSON_R [facility] 86 [place] 02:59:00 02:59:00 308 [facility] 2021-10-20 2021-10-20 Outpatient ERICKSON_R [facility] [id number] - Jo[place] 02:23:00 02:23:00 304 Commun i ty [facility] Clinics 2021-10-20 2021-10-20 Outpatient Jared, [facility] [id number] 00:00:00 00:00:00 Erickson [id number] Barber [id number] 2021-09-30 2021-09-30 Outpatient ERICKSON_R [facility] [id number] - [place] 07:32:00 07:32:00 212 [facility] 2021-09-12 2021-09-12 Orders Doctor OLIVIER [id number] [id number] Univers 00:00:00 00:00:00 Only Unassigned, GILBERTO 350.1.13.10 ity [facility] [place] [facility] 4.2.7.2.686 Patel as [phone] [address] 2021-09-08 2021-09-08 [facility] [id number] Univers 14:45:00 14:45:00 [facility] 2021-09-08 2021-09-08 [facility] [id number] Univers 13:30:00 13:30:00 ML [id number] [facility] 2021-08-28 2021-08-28 Orders Doctor OLIVIER 1.2.840.114 [id number] Univers 00:00:00 00:00:00 Only Unassigned, GILBERTO 350.1.13.10 ity of [place] [facility] 4.2.7.2.686 Patel as [phone] [address] 2021-08-26 2021-08-26 Outpatient ERICKSON_R [facility] [id number] - [place] 04:34:00 04:34:00 108 Commun i ty Hospita [facility] 2021-08-16 2021-08-16 [facility] [id number] Univers 16:25:00 23:59:00 [facility] 2021-08-16 2021-08-16 [facility] [id number] [id number] Univers 16:15:00 16:43:15 Visit [facility] 350.1.13.10 it y of [place] 4.2.7.2.686 Patel as BRANDON?BLEA [phone] [address] MEDICAL OFFICE BUILDING 2021-07-22 2021-07-22 Outpatient ERICKSON_R [facility] [id number] - [place] 05:22:00 05:22:00 204 [facility] 2021-07-10 2021-07-10 Outpatient ERICKSON_R [facility] [id number] - [place] 11:19:00 11:19:00 122 [facility] 2021-07-10 2021-07-10 Outpatient Coleman, [facility] [id number] 00:00:00 00:00:00 Erickson [id number] Barber [id number] 1478-11-18 2021-07-06 ambulatory STLMLC STLMLC [id number] Common 00:00:00 00:00:00 [facility] 2021-05-03 2021-05-03 Outpatient STLMLC STLMLC [id number] Common 00:00:00 00:00:00 [facility] 2021-04-28 2021-04-28 Outpatient ERICKSON_R [facility] [id number] - [place] 04:22:00 04:22:00 910 Commun i ty Hospita [facility] Clinics 2021-04-28 2021-04-28 Outpatient STLMLC STLMLC [id number] Common 00:00:00 00:00:00 [facility] 2021-04-28 2021-04-28 Outpatient Coleman, [facility] [id number] 00:00:00 00:00:00 Erickson [id number] Barber [id number] 2021-04-18 2021-04-18 Outpatient ERICKSON_R [facility] [id number] [place] 01:12:00 01:12:00 831 Commun i ty [facility]ics 2021-03-14 2021-03-14 Outpatient [facility]ICKSON_R [facility] [id number] [place] 12:57:00 12:57:00 727 Commun i [facility]ics 2021-01-13 2021-01-13 Outpatient [facility]ICKSON_R [facility] [id number] [place] 02:36:00 02:36:00 528 Commun i ty [facility] Clinics 2021-01-10 2021-01-10 Outpatient [facility] [id number] Common 00:00:00 00:00:00 [facility] 2021-01-09 2021-01-09 Outpatient ERICKSON_R [facility] [id number] [place] 10:40:00 10:40:00 524 Commun i ty Hospita l Clinics 2020-12-29 2020-12-29 Outpatient [facility]SON_R [facility] [id number] [place] 01:03:00 01:03:00 513 Commun i ty [facility] Clinics 2020-12-29 2020-12-29 Outpatient [facility]SON_[facility] [id number] [place] 01:03:00 01:03:00 518 Commun i ty [facility] Clinics 2020-11-29 2020-11-29 Outpatient [facility] [id number] Common 00:00:00 00:00:00 [facility] 2020-11-24 2020-11-24 Outpatient ERICKSON_R [facility] [id number] [place] 01:02:00 01:02:00 408 Commun i ty [facility]ita [facility] Clinics 2020-10-15 2020-10-15 Outpatient [facility] [id number] [place] 01:02:00 01:02:00 227 Commun i ty Hospita l Clinics 2020-10-13 2020-10-13 Outpatient ER[facility]SON_R [facility] [id number] [place] 09:17:00 09:17:00 225 Commun i ty Hospita [facility] Clinics 2020-10-10 2020-10-10 Outpatient ERICKSON_R [facility] [id number] [place] 03:46:00 03:46:00 222 Commun i ty Hospita l Clinics 2020-10-10 2020-10-10 Outpatient Jared, [facility] [id number] 00:00:00 00:00:00 Erickson [id number] Barber [id number] 2020-09-09 2020-09-09 Outpatient ERICKSON_R [facility] [id number] [place] 09:10:00 09:10:00 122 Commun i ty [facility] Clinics 2020-09-06 2020-09-06 Outpatient ERICKSON_R [facility] [id number] [place] 03:48:00 03:48:00 119 Commun i ty [facility] Clinics 2020-09-06 2020-09-06 Outpatient Coleman, [facility] [id number] 00:00:00 00:00:00 Erickson [id number] Barber [id number] 2020-08-05 2020-08-05 Outpatient [facility]SON_R [facility] [id number] - [place] 01:02:00 01:02:00 218 Commun i ty [facility] Clinics 2020-08-05 2020-08-05 Outpatient ERICKSON_R [facility] [id number] [place] 01:02:00 01:02:00 112 Commun i ty Hospita [facility] Clinics 2020-04-29 2020-04-29 Outpatient [facility] [id number] Common 16:00:00 16:00:00 t Specialty/U Sp fitz Specialty rology - [facility] /Urology Clinic [facility] 2020-04-29 2020-04-29 Outpatient [facility] 31 [id number] Common 13:00:00 13:00:00 t Specialty/U Sp fitz Specialty rology - [facility] /Urology Clinic [facility] 2020-03-22 2020-03-22 Laboratory Lab, [facility] [id number] [id number] 14:05:14 14:25:14 Only [facility] 350.1.13.10 [place] 4.2.7.2.686 Professio [id number] nal [address] 2020-01-28 2020-01-28 Outpatient [facility] [id number] Common 13:15:00 13:15:00 t Specialty/U Sp fitz Specialty rology - [facility] /Urology Clinic [facility] 2020-01-25 2020-01-25 Outpatient Celestine Spraguet 31 [id number] Common 13:46:00 13:46:00 t Specialty/U Sp fitz Specialty rology - [facility] /Urology Clinic [facility] 2020-01-23 2020-01-23 Outpatient MIKE YanesU SURG [id number] [facility] 09:30:00 09:30:00 [facility] 2020-01-23 2020-01-23 Outpatient ESTELA YanesWU SURG [id number] [facility] 09:30:00 09:30:00 [facility] 2019-12-28 2019-12-28 Outpatient Celestine [facility] 30 [id number] Common 13:30:00 13:30:00 t Specialty/U Sp fitz Specialty rology - [facility] /Urology Clinic [facility] Results Test Description Test Time Test Comments Results Result Comments Source BASIC METABOLIC PANEL (NA, K, CL, CO2, GLUCOSE, BUN, 2022-02 11:25:10 CREATININE, CA) Test Item Value Reference Range Interpretation Comme nts NA (test code = 0900599822) 140 mmol/L 135-145 K (test code = 0707428756) 3.7 mmol/L 3.5-5 CL (test code = 5940468861) 117 mmol/L 98-108 H CO2 TOTAL (test code = 0581651407) 21 mmol/L 23-31 L AGAP (test code = 8750691069) 2-16 BUN (test code = 4612090807) 23 mg/dL 7-23 GLUCOSE (test code = 9717732020) 87 mg/dL 70-110 CREATININE (test code = 0.82 mg/dL 0.6-1.25 2214530316) CALCIUM (test code = 6520606525) 7.9 mg/dL 8.6-10.6 L eGFR (test code = 9956109072) mL/min/1.73m2 ADILENE (test code = ADILENE) Association [...] tests). Lab Interpretation (test code = Abnormal 11583-1) [facility] WITHOUT [id number] 10:57:45 Test Item Value Reference Range Interpretation Comments WBC (test code = 6690-2) See_Comment [A utomated message] The system [employer] generated this result transmit gilberto reference range : 4.20 - 10.70 10*3/?L. The reference range was not used to interpret this result as normal/abnormal . RBC (test code = 789-8) See_Comment L [Au tomated message] The system [employer] generated this result transmit gilberto reference range [...] See_Comment H [Au tomated message] The system [employer] generated this result transmit gilberto reference range : 150 - 328 10*3/?L. The reference range was not used to interpret this result as normal/abnormal . MPV (test code = 10.2 fL 9.8-13 38189-5) RDW-CV (test code = 15.4 % 12.1-15.4 788-0) RDW-SD (test code = 51.6 fL 38.5-51.6 84677-2) NRBC x10^3 (test code = See_Comment [Au tomated message] 8391260307) The system [employer] generated this result transmit gilberto reference range : 10*3/?L. The reference range was not used to interpret this result as normal/abnormal . NRBC/100 WBC (test code See_Comment [Au tomated message] = 3140178924) The system [employer] generated this result transmit gilberto reference range : 0.0 - 10.0 /100 WBC s. The reference r lisa was not used to interpret this result as normal/abnormal . IPF % (test code = 2143182958) Lab Interpretation (test Abnormal code = 10144-4) [facility] Packed RBC (in units)2022-02-28 05:15:05 Test Item Value Reference Range Interpretation Comments Unit Blood Type (test O Pos code = 4410) ISBT Blood Type Code (test code = 162284) Unit Number (test [id number] code = 4411) Blood Expiration Date & Time (test code = 594381) Status Information Issued (test code = 4412) Product Red Blood Cells Identification (test code = 4413) Product Code (test [id number] Performed at [facility] code = 4414) Laboratory Services - [facility] Blood [address] [place] [address]Yolz Free: [phone] A No. [id number] Cross Match Result Compatible (test code = 4409) [facility]2022-02-25 11:22:22 Test Item Value Reference Range Interpretation Comments POCT GLU (test code = 3824730377) 99 mg/dL 70-110 Lab Interpretation (test code = Normal 46438-8) [facility] WITHOUT [id number] 09:51:29 Test Item Value Reference Range Interpretation Comments WBC (test code = 6690-2) See_Comment [A utomated message] The system [employer] generated this result transmit gilberto reference range : 4.20 - 10.70 10*3/?L. The reference range was not used to interpret this result as normal/abnormal . RBC (test code = 789-8) See_Comment L [Au tomated message] The system [employer] generated this result transmit gilberto reference range [...] 777-3) See_Comment [Au tomated message] The system [employer] generated this result transmit gilberto reference range : 150 - 328 10*3/?L. The reference range was not used to interpret this result as normal/abnormal . MPV (test code = 10.4 fL 9.8-13 36339-1) RDW-CV (test code = 15.4 % 12.1-15.4 788-0) RDW-SD (test code = 53.1 fL 38.5-51.6 H 64646-6) NRBC x10^3 (test code = See_Comment [Au tomated message] 3823379332) The system [employer] generated this result transmit gilberto reference range : 10*3/?L. The reference range was not used to interpret this result as normal/abnormal . NRBC/100 WBC (test code See_Comment [Au tomated message] = 7790060042) The system [facility] generated this result transmit gilberto reference range : 0.0 - 10.0 /100 WBC s. The reference r lisa was not used to interpret this result as normal/abnormal . IPF % (test code = 0971579700) Lab Interpretation (test Abnormal code = 75573-2) [facility] RBC (in units), 1 Units 2022-02-25 05:40:24 Test Item Value Reference Range Interpretation Comments Unit Blood Type (test O Pos code = 4410) ISBT Blood Type Code (test code = 497157) Unit Number (test [id number] code = 4411) Blood Expiration Date & Time (test code = 479206) Status Information Issued (test code = 4412) Product Red Blood Cells Identification (test code = 4413) Product Code (test [id number] Performed at [facility] code = 4414) Laboratory Services - [facility] Blood [address]ty[address] [place], [place] [address]Hqib Free: [phone] A No. [id number] Cross Match Result Compatible (test code = 4409) [facility])2022-02-25 04:46:02 Test Item Value Reference Range Interpretation Comments POCT GLU (test code = 3860572710) 117 mg/dL 70-110 H Lab Interpretation (test code = Abnormal 72826-3) [facility] [id number] 02:55:10 Test Item Value Reference Range Interpretation Comments ANTIBODY ID (test code Anti-Fya Perfo rmed at [facility] = 245) Laboratory Serv [facility] Blood Bank3 [address] [facility] [address]Gygr Free: [phone] A No. [id number] [facility] WITHOUT [id number] 01:12:01 Test Item Value Reference Range Interpretation Comments WBC (test code = 6690-2) See_Comment [A utomated message] The system [employer] generated this result transmit gilberto reference range : 4.20 - 10.70 10*3/?L. The reference range was not used to interpret this result as normal/abnormal . RBC (test code = 789-8) See_Comment L [Au tomated message] The system [employer] generated this result transmit gilberto reference range [...] 777-3) See_Comment [Au tomated message] The system [facility] generated this result transmit gilberto reference range : 150 - 328 10*3/?L. The reference range was not used to interpret this result as normal/abnormal . MPV (test code = 10.9 fL 9.8-13 77223-5) RDW-CV (test code = 15.5 % 12.1-15.4 H 788-0) RDW-SD (test code = 53.7 fL 38.5-51.6 H 08630-4) NRBC x10^3 (test code = See_Comment [Au tomated message] [id number]) The system [employer] generated this result transmit gilberto reference range : 10*3/?L. The reference range was not used to interpret this result as normal/abnormal . NRBC/100 WBC (test code See_Comment [Au tomated message] = [id number]) The system [facility] generated this result transmit gilberto reference range : 0.0 - 10.0 /100 WBC s. The reference r lisa was not used to interpret this result as normal/abnormal . IPF % (test code = 0247712251) Lab Interpretation (test Abnormal code = 42748-5) [facility] ONCE [id number] 19:46:27 Test Item Value Reference Range Interpretation Comments ABO & RH (test code O Positive Performe d at [facility] = 20) Laboratory Serv [facility] Blood [address] [place] [address] 77647Xmxo Free: [phone] A No. [id number] IAT (test code = Positive Performed a t [facility] 1185) Laboratory Serv [facility] [address] [place] [address] 14068Zwew Free: [phone] A No. [id number] [facility] WITHOUT [id number] 19:00:21 Test Item Value Reference Range Interpretation Comments WBC (test code = 6690-2) See_Comment [A utomated message] The system [employer] generated this result transmit gilberto reference range : 4.20 - 10.70 10*3/?L. The reference range was not used to interpret this result as normal/abnormal . RBC (test code = 789-8) See_Comment L [Au tomated message] The system [employer] generated this result transmit gilberto reference range [...] 777-3) See_Comment [Au tomated message] The system [employer] generated this result transmit gilberto reference range : 150 - 328 10*3/?L. The reference range was not used to interpret this result as normal/abnormal . MPV (test code = 10.8 fL 9.8-13 74252-0) RDW-CV (test code = 15.5 % 12.1-15.4 H 788-0) RDW-SD (test code = 52.6 fL 38.5-51.6 H 16778-9) NRBC x10^3 (test code = See_Comment [Au tomated message] 7102112299) The system [employer] generated this result transmit gilberto reference range : 10*3/?L. The reference range was not used to interpret this result as normal/abnormal . NRBC/100 WBC (test code See_Comment [Au tomated message] = 0244949239) The system [employer] generated this result transmit gilberto reference range : 0.0 - 10.0 /100 WBC s. The reference r lisa was not used to interpret this result as normal/abnormal . IPF % (test code = 1298850381) Lab Interpretation (test Abnormal code = 23653-4) [facility]. METABOLIC PANEL ([id number])2022-02-24 09:05:13 Test Item Value Reference Range Interpretation Comments NA (test code = 137 mmol/L 135-145 9093840928) K (test code = 4.4 mmol/L 3.5-5 1923631692) CL (test code = 113 mmol/L 98-108 H 1214695923) CO2 TOTAL (test code = 24 mmol/L 23-31 4863789375) AGAP (test code = 2-16 L 4614262374) BUN (test code = 32 mg/dL 7-23 H 2453230807) GLUCOSE (test code = 81 mg/dL 70-110 0716691532) CREATININE (test code = 0.90 mg/dL 0.6-1.25 2540235952) TOTAL BILI (test code = 0.4 mg/dL 0.1-1.3 6562283435) CALCIUM (test code = 7.5 mg/dL 8.6-10.6 L 4333732560) T PROTEIN (test code = 3.9 g/dL 6.3-8.2 L 8831719236) ALBUMIN (test code = 1.9 g/dL 3.5-5 L 2396771046) ALK PHOS (test code = 69 U/L 34-122 3957539362) ALTv (test code = 19 U/L 5-50 1742-6) AST(SGOT) (test code = 28 U/L 13-40 5897963094) eGFR (test code = mL/min/1.73m2 8440159608) ADILENE (test code = ADILENE) Association of [...] tests). Lab Interpretation Abnormal (test code = 08243-8) [facility] WITHOUT [id number] 08:19:31 Test Item Value Reference Range Interpretation Comments WBC (test code = 6690-2) See_Comment [A utomated message] The system [employer] generated this result transmit gilberto reference range : 4.20 - 10.70 10*3/?L. The reference range was not used to interpret this result as normal/abnormal . RBC (test code = 789-8) See_Comment L [Au tomated message] The system [employer] generated this result transmit gilberto reference range [...] 777-3) See_Comment [Au tomated message] The system [employer] generated this result transmit gilberto reference range : 150 - 328 10*3/?L. The reference range was not used to interpret this result as normal/abnormal . MPV (test code = 11.0 fL 9.8-13 63396-4) RDW-CV (test code = 15.5 % 12.1-15.4 H 788-0) RDW-SD (test code = 52.0 fL 38.5-51.6 H 26898-8) NRBC x10^3 (test code = See_Comment [Au tomated message] 1643300073) The system [employer] generated this result transmit gilberto reference range : 10*3/?L. The reference range was not used to interpret this result as normal/abnormal . NRBC/100 WBC (test code See_Comment [Au tomated message] = 1922609209) The system [employer] generated this result transmit gilberto reference range : 0.0 - 10.0 /100 WBC s. The reference r lisa was not used to interpret this result as normal/abnormal . IPF % (test code = 5216688827) Lab Interpretation (test Abnormal code = 96161-5) [facility]. METABOLIC PANEL ([id number])2022-02-23 09:33:59 Test Item Value Reference Range Interpretation Comments NA (test code = 136 mmol/L 135-145 5485085411) K (test code = 4.4 mmol/L 3.5-5 0417665505) CL (test code = 114 mmol/L 98-108 H 3434360553) CO2 TOTAL (test code = 21 mmol/L 23-31 L 5570532521) AGAP (test code = 2-16 L 6366884380) BUN (test code = 35 mg/dL 7-23 H 2867301906) GLUCOSE (test code = 115 mg/dL 70-110 H 6333016450) CREATININE (test code = 0.92 mg/dL 0.6-1.25 1761056690) TOTAL BILI (test code = 0.3 mg/dL 0.1-1.0 1312263429) CALCIUM (test code = 7.5 mg/dL 8.6-10.6 L 1001422406) T PROTEIN (test code = 3.9 g/dL 6.3-8.2 L 8886223480) ALBUMIN (test code = 1.9 g/dL 3.5-5 L 9114874975) ALK PHOS (test code = 85 U/L 34-122 0071611231) ALTv (test code = 21 U/L 5-50 1742-6) AST(SGOT) (test code = 53 U/L 13-40 H 1834724217) eGFR (test code = mL/min/1.73m2 3332235614) ADILENE (test code = ADILENE) Association of [...] tests). Lab Interpretation Abnormal (test code = 25646-5) [facility] WITHOUT [id number] 09:12:16 Test Item Value Reference Range Interpretation Comments WBC (test code = 6690-2) See_Comment [A utomated message] The system [employer] generated this result transmit gilberto reference range : 4.20 - 10.70 10*3/?L. The reference range was not used to interpret this result as normal/abnormal . RBC (test code = 789-8) See_Comment L [Au tomated message] The system [employer] generated this result transmit gilberto reference range [...] 777-3) See_Comment [Au tomated message] The system [employer] generated this result transmit gilberto reference range : 150 - 328 10*3/?L. The reference range was not used to interpret this result as normal/abnormal . MPV (test code = 11.3 fL 9.8-13 35977-3) RDW-CV (test code = 15.8 % 12.1-15.4 H 788-0) RDW-SD (test code = 54.4 fL 38.5-51.6 H 61513-1) NRBC x10^3 (test code = See_Comment [Au tomated message] 8569989418) The system [employer] generated this result transmit gilberto reference range : 10*3/?L. The reference range was not used to interpret this result as normal/abnormal . NRBC/100 WBC (test code See_Comment [Au tomated message] = 9374179265) The system [facility] generated this result transmit gilberto reference range : 0.0 - 10.0 /100 WBC s. The reference r lisa was not used to interpret this result as normal/abnormal . IPF % (test code = 3647506281) Lab Interpretation (test Abnormal code = 63969-3) [facility] HospitalPrepare Packed RBC (in units)2022-02-23 05:15:06 Test Item Value Reference Range Interpretation Comments Unit Blood Type (test O Pos code = 4410) ISBT Blood Type Code (test code = 366038) Unit Number (test [id number] code = 4411) Blood Expiration Date & Time (test code = 858323) Status Information Released (test code = 4412) Product Red Blood Cells Identification (test code = 4413) Product Code (test [id number] Performed at [facility] code = 4414) Laboratory Services - [facility] [address] [place] [address] 04185Yzfw Free: [phone] A No. [id number] Cross Match Result Compatible (test code = 4409) [facility]MAGN[facility]UM2022-[facility]-07 15:28:34 Test Item Value Reference Range Interpretation Comments MAGNESIUM (test code = 7489537852) 2.3 mg/dL 1.7-2.4 Lab Interpretation (test code = Normal 82647-8) [facility]. METABOLIC PANEL ([id number])2022-02-22 09:07:47 Test Item Value Reference Range Interpretation Comments NA (test code = 139 mmol/L 135-145 7675768326) K (test code = 3.4 mmol/L 3.5-5 L 7708529304) CL (test code = 112 mmol/L 98-108 H 8348278687) CO2 TOTAL (test code = 23 mmol/L 23-31 8599328713) AGAP (test code = 2-16 1326015644) BUN (test code = 34 mg/dL 7-23 H 2656259586) GLUCOSE (test code = 118 mg/dL 70-110 H 7213197490) CREATININE (test code = 1.02 mg/dL 0.6-1.25 2427930697) TOTAL BILI (test code = 0.3 mg/dL 0.1-1.1 4946635499) CALCIUM (test code = 7.5 mg/dL 8.6-10.6 L 6757878199) T PROTEIN (test code = 4.1 g/dL 6.3-8.2 L 5922960511) ALBUMIN (test code = 2.0 g/dL 3.5-5 L 7262344783) ALK PHOS (test code = 85 U/L 34-122 4432160584) ALTv (test code = 24 U/L 5-50 1742-6) AST(SGOT) (test code = 31 U/L 13-40 2910986117) eGFR (test code = mL/min/1.73m2 9159622229) ADILENE (test code = ADILENE) Association of [...] tests). Lab Interpretation Abnormal (test code = 58942-1) [facility] WITHOUT [id number] 08:50:48 Test Item Value Reference Range Interpretation Comments WBC (test code = 6690-2) See_Comment [A utomated message] The system [employer] generated this result transmit gilberto reference range : 4.20 - 10.70 10*3/?L. The reference range was not used to interpret this result as normal/abnormal . RBC (test code = 789-8) See_Comment L [Au tomated message] The system [facility] generated this result transmit gilberto reference range [...] 777-3) See_Comment [Au tomated message] The system [facility] generated this result transmit gilberto reference range : 150 - 328 10*3/?L. The reference range was not used to interpret this result as normal/abnormal . MPV (test code = 11.4 fL 9.8-13 11552-5) RDW-CV (test code = 16.0 % 12.1-15.4 H 788-0) RDW-SD (test code = 54.7 fL 38.5-51.6 H 43637-5) NRBC x10^3 (test code = See_Comment [Au tomated message] 2802299311) The system [facility] generated this result transmit gilberto reference range : 10*3/?L. The reference range was not used to interpret this result as normal/abnormal . NRBC/100 WBC (test code See_Comment [Au tomated message] = 4509770859) The system [facility] generated this result transmit gilberto reference range : 0.0 - 10.0 /100 WBC s. The reference r lisa was not used to interpret this result as normal/abnormal . IPF % (test code = 3300969486) Lab Interpretation (test Abnormal code = 29025-5) [facility]. METABOLIC PANEL ([id number])2022-02-21 10:00:35 Test Item Value Reference Range Interpretation Comments NA (test code = 142 mmol/L 135-145 7006139895) K (test code = 3.2 mmol/L 3.5-5 L 8672017530) CL (test code = 114 mmol/L 98-108 H 5915929971) CO2 TOTAL (test code = 29 mmol/L 23-31 9326996390) AGAP (test code = 2-16 L 9149496072) BUN (test code = 40 mg/dL 7-23 H 9736973190) GLUCOSE (test code = 100 mg/dL 70-110 4817891112) CREATININE (test code = 1.01 mg/dL 0.6-1.25 1644112118) TOTAL BILI (test code = 0.5 mg/dL 0.1-1.1 9637357692) CALCIUM (test code = 7.8 mg/dL 8.6-10.6 L 1232872668) T PROTEIN (test code = 4.0 g/dL 6.3-8.2 L 2468441482) ALBUMIN (test code = 2.0 g/dL 3.5-5 L 2832733015) ALK PHOS (test code = 62 U/L 34-122 6683607310) ALTv (test code = 18 U/L 5-50 1742-6) AST(SGOT) (test code = 27 U/L 13-40 0739463114) eGFR (test code = mL/min/1.73m2 9914321040) ADILENE (test code = ADILENE) Association of [...] tests). Lab Interpretation Abnormal (test code = 07489-1) [facility]20[facility] 09:42:12 Test Item Value Reference Range Interpretation Comments MAGNESIUM (test code = 9239764674) 2.4 mg/dL 1.7-2.4 Lab Interpretation (test code = Normal 76947-4) [facility] HospitalPHOSPHORUS2022-07-06 09:42:12 Test Item Value Reference Range Interpretation Comments PHOSPHORUS (test code = 3161529331) 3.5 mg/dL 2.5-5 Lab Interpretation (test code = Normal 99660-0) [facility]CB WITHOUT [id number] 09:25:49 Test Item Value Reference Range Interpretation Comments WBC (test code = 6690-2) See_Comment [A utomated message] The system [employer] generated this result transmit gilberto reference range : 4.20 - 10.70 10*3/?L. The reference range was not used to interpret this result as normal/abnormal . RBC (test code = 789-8) See_Comment L [Au tomated message] The system [employer] generated this result transmit gilberto reference range [...] 777-3) See_Comment [Au tomated message] The system [facility] generated this result transmit gilberto reference range : 150 - 328 10*3/?L. The reference range was not used to interpret this result as normal/abnormal . MPV (test code = 11.3 fL 9.8-13 29571-4) RDW-CV (test code = 15.9 % 12.1-15.4 H 788-0) RDW-SD (test code = 56.2 fL 38.5-51.6 H 79435-7) NRBC x10^3 (test code = See_Comment [Au tomated message] 1024407781) The system [facility] generated this result transmit gilberto reference range : 10*3/?L. The reference range was not used to interpret this result as normal/abnormal . NRBC/100 WBC (test code See_Comment [Au tomated message] = 5614063354) The system [facility] generated this result transmit gilberto reference range : 0.0 - 10.0 /100 WBC s. The reference r lisa was not used to interpret this result as normal/abnormal . IPF % (test code = 9482171144) Lab Interpretation (test Abnormal code = 10302-1) [facility] WITHOUT [id number] 09:25:49 Test Item Value Reference Range Interpretation Comments WBC (test code = 6690-2) See_Comment [A utomated message] The system [facility] generated this result transmit gilberto reference range : 4.20 - 10.70 10*3/?L. The reference range was not used to interpret this result as normal/abnormal . RBC (test code = 789-8) See_Comment L [Au tomated message] The system [facility] generated this result transmit gilberto reference range [...] 777-3) See_Comment [Au tomated message] The system [facility] generated this result transmit gilberto reference range : 150 - 328 10*3/?L. The reference range was not used to interpret this result as normal/abnormal . MPV (test code = 11.8 fL 9.8-13 35055-1) RDW-CV (test code = 16.0 % 12.1-15.4 H 788-0) RDW-SD (test code = 56.3 fL 38.5-51.6 H 28116-0) NRBC x10^3 (test code = See_Comment [Au tomated message] 6256729886) The system [facility] generated this result transmit gilberto reference range : 10*3/?L. The reference range was not used to interpret this result as normal/abnormal . NRBC/100 WBC (test code See_Comment [Au tomated message] = 0471557968) The system [facility] generated this result transmit gilberto reference range : 0.0 - 10.0 /100 WBC s. The reference r lisa was not used to interpret this result as normal/abnormal . IPF % (test code = 6867107334) Lab Interpretation (test Abnormal code = 80193-5) [facility] WITHOUT [id number] 22:41:52 Test Item Value Reference Range Interpretation Comments WBC (test code = 6690-2) See_Comment H [A utomated message] The system [facility] generated this result transmit gilberto reference range : 4.20 - 10.70 10*3/?L. The reference range was not used to interpret this result as normal/abnormal . RBC (test code = 789-8) See_Comment L [Au tomated message] The system [facility] generated this result transmit gilberto reference range [...] 777-3) See_Comment [Au tomated message] The system [employer] generated this result transmit gilberto reference range : 150 - 328 10*3/?L. The reference range was not used to interpret this result as normal/abnormal . MPV (test code = 11.5 fL 9.8-13 00007-5) RDW-CV (test code = 16.2 % 12.1-15.4 H 788-0) RDW-SD (test code = 57.1 fL 38.5-51.6 H 22858-8) NRBC x10^3 (test code = See_Comment [Au tomated message] 7312431531) The system [employer] generated this result transmit gilberto reference range : 10*3/?L. The reference range was not used to interpret this result as normal/abnormal . NRBC/100 WBC (test code See_Comment [Au tomated message] = 1830126710) The system [facility] generated this result transmit gilberto reference range : 0.0 - 10.0 /100 WBC s. The reference r lisa was not used to interpret this result as normal/abnormal . IPF % (test code = 1648974284) Lab Interpretation (test Abnormal code = 19826-3) [facility] HospitalN-TERMINAL [id number] 19:21:47 Test Item Value Reference Range Interpretation Comments NT-proBNP (test code 77582 pg/mL See_Comment H [Autom ated = 8407693315) message] The system which generated this result transmitted reference range : <=450. The reference range was not used to interpret this result as normal/abnormal . ADILENE (test code = ADILENE) Biotin has been reported to cause a negative bias, interpret results relative to patient's use of biotin. Lab Interpretation Abnormal (test code = 76030-1) [facility] HospitalOSMOLALITY, SERUM OR [id number] 17:33:31 Test Item Value Reference Range Interpretation Comments OSMOLALITY (test code = See_Comment H [Au tomated message] 2692-2) The system [employer] generated this result transmitted ref erence range: 278 - 30 5 mOsm/kg. The reference range was not used to int erpret this result as normal/abnormal . Lab Interpretation (test Abnormal code = 53767-0) [facility] WITHOUT [id number] 16:15:21 Test Item Value Reference Range Interpretation Comments WBC (test code = 6690-2) See_Comment H [A utomated message] The system [employer] generated this result transmit gilberto reference range : 4.20 - 10.70 10*3/?L. The reference range was not used to interpret this result as normal/abnormal . RBC (test code = 789-8) See_Comment L [Au tomated message] The system [employer] generated this result transmit gilberto reference range [...] 777-3) See_Comment [Au tomated message] The system [employer] generated this result transmit gilberto reference range : 150 - 328 10*3/?L. The reference range was not used to interpret this result as normal/abnormal . MPV (test code = 11.9 fL 9.8-13 56479-7) RDW-CV (test code = 16.0 % 12.1-15.4 H 788-0) RDW-SD (test code = 57.5 fL 38.5-51.6 H 85404-0) NRBC x10^3 (test code = See_Comment [Au tomated message] 5027429710) The system [employer] generated this result transmit gilberto reference range : 10*3/?L. The reference range was not used to interpret this result as normal/abnormal . NRBC/100 WBC (test code See_Comment [Au tomated message] = 0470055204) The system [employer] generated this result transmit gilberto reference range : 0.0 - 10.0 /100 WBC s. The reference r lisa was not used to interpret this result as normal/abnormal . IPF % (test code = 6422002598) Lab Interpretation (test Abnormal code = 72547-2) [facility] HospitalPAN [id number] 13:13:45 Test Item Value Reference Range Interpretation Comments ANTIBODY ID (test code Anti-Fya Perfo rmed at [facility] = 245) Laboratory Serv [facility] Blood [address] [address]Tzgu Free: [phone] A No. [id number] [facility]. METABOLIC PANEL ([id number])2022-02-20 09:25:21 Test Item Value Reference Range Interpretation Comments NA (test code = 148 mmol/L 135-145 H 4054622440) K (test code = 3.8 mmol/L 3.5-5 3328199545) CL (test code = 120 mmol/L 98-108 H 5428481911) CO2 TOTAL (test code = 28 mmol/L 23-31 9406915182) AGAP (test code = 2-16 L 4251001759) BUN (test code = 45 mg/dL 7-23 H 4048353152) GLUCOSE (test code = 104 mg/dL 70-110 8921393154) CREATININE (test code = 0.99 mg/dL 0.6-1.25 7867286762) TOTAL BILI (test code = 0.6 mg/dL 0.1-1.9 1285442398) CALCIUM (test code = 8.3 mg/dL 8.6-10.6 L 5672388347) T PROTEIN (test code = 4.2 g/dL 6.3-8.2 L 0402113919) ALBUMIN (test code = 2.2 g/dL 3.5-5 L 9285603824) ALK PHOS (test code = 79 U/L 34-122 1077544593) ALTv (test code = 21 U/L 5-50 1742-6) AST(SGOT) (test code = 31 U/L 13-40 4452655283) eGFR (test code = mL/min/1.73m2 7185271429) ADILENE (test code = ADILENE) Association of [...] tests). Lab Interpretation Abnormal (test code = 28569-4) [facility] WITHOUT [id number] 08:56:22 Test Item Value Reference Range Interpretation Comments WBC (test code = 6690-2) See_Comment [A utomated message] The system [employer] generated this result transmit gilberto reference range : 4.20 - 10.70 10*3/?L. The reference range was not used to interpret this result as normal/abnormal . RBC (test code = 789-8) See_Comment L [Au tomated message] The system [employer] generated this result transmit gilberto reference range [...] 777-3) See_Comment [Au tomated message] The system [employer] generated this result transmit gilberto reference range : 150 - 328 10*3/?L. The reference range was not used to interpret this result as normal/abnormal . MPV (test code = 11.2 fL 9.8-13 31604-0) RDW-CV (test code = 16.0 % 12.1-15.4 H 788-0) RDW-SD (test code = 57.3 fL 38.5-51.6 H 76895-4) NRBC x10^3 (test code = See_Comment [Au tomated message] 6775068103) The system [employer] generated this result transmit gilberto reference range : 10*3/?L. The reference range was not used to interpret this result as normal/abnormal . NRBC/100 WBC (test code See_Comment [Au tomated message] = 1246928829) The system [facility] generated this result transmit gilberto reference range : 0.0 - 10.0 /100 WBC s. The reference r lisa was not used to interpret this result as normal/abnormal . IPF % (test code = 2656710957) Lab Interpretation (test Abnormal code = 04204-3) [facility] - ONCE [id number] 05:43:23 Test Item Value Reference Range Interpretation Comments ABO & RH (test code O Positive Performe d at [facility] = 20) Laboratory [facility] Blood [address] [place] [address]Ivtp Free: [phone] A No. [id number] IAT (test code = Positive Performed a t [facility] 1185) Laboratory [facility] Blood Bank[address] [place] [address]84[address]Rvme Free: [phone] A No. [id number] [facility] WITH [id number] 16:36:18 Test Item Value Reference Range Interpretation [...] (test code = 59.8 fL 38.5-51.6 H 91778-4) RDW-CV (test code = 16.2 % 12.1-15.4 H 788-0) PLT (test code = See_Comment [Automated 777-3) message] The sy stem which generated this result transmitted reference range : 150 - 328 10*3/ ?L. The reference r lisa was not used to interpret this result as normal/abnormal . MPV (test code = 11.3 fL 9.8-13 21403-2) NRBC/100 WBC (test See_Comment [Automat ed code = 4916666995) message] The system which generated this result transmitted reference range : 0.0 - 10.0 /100 WBCs. The refer ence range was not u sed to interpret th is result as normal/abnormal . NRBC x10^3 (test code See_Comment [Auto mated = 8891073630) message] The s ystem which generated this result transmitted reference range : 10*3/?L. The reference range was not used to interpret this result as normal/abnormal . GRAN MAT (NEUT) % 86.4 % (test code = 770-8) IMM GRAN % (test code 0.60 % = 1307448794) LYMPH % (test code = 6.3 % 736-9) MONO % (test code = 4.7 % 5905-5) EOS % (test code = 1.9 % 713-8) BASO % (test code = 0.1 % 706-2) GRAN MAT x10^3(ANC) 8.72 10*3/uL 1.99-6.95 H (test code = 0032466486) IMM GRAN x10^3 (test 0.06 10*3/uL 0-0.06 code = 5749955711) LYMPH x10^3 (test code 0.63 10*3/uL 1.09-3.23 L = 731-0) MONO x10^3 (test code 0.47 10*3/uL 0.36-1.02 = 742-7) EOS x10^3 (test code = 0.19 10*3/uL 0.06-0.53 711-2) BASO x10^3 (test code 0.01-0.09 = 704-7) Lab Interpretation Abnormal (test code = 78758-9) [facility] METABOLIC PANEL (NA, K, CL, CO2, GLUCOSE, BUN, CREATININE, CA)2022-02-19 16:11:59 Test Item Value Reference Range Interpretation Comments NA (test code = 149 mmol/L 135-145 H 7327684055) K (test code = 3.9 mmol/L 3.5-5 5981216822) CL (test code = 116 mmol/L 98-108 H 3645813483) CO2 TOTAL (test code = 32 mmol/L 23-31 H 7052554796) AGAP (test code = 2-16 L 2569986702) BUN (test code = 49 mg/dL 7-23 H 0628457354) GLUCOSE (test code = 146 mg/dL 70-110 H 2529310306) CREATININE (test code = 1.04 mg/dL 0.6-1.25 6487578393) CALCIUM (test code = 8.3 mg/dL 8.6-10.6 L 9344982629) eGFR (test code = mL/min/1.73m2 5159496282) ADILENE (test code = ADILENE) Association of [...] tests). Lab Interpretation Abnormal (test code = 09007-7) [facility] METABOLIC PANEL (NA, K, CL, CO2, GLUCOSE, BUN, CREATININE, CA)2022-02-18 08:55:09 Test Item Value Reference Range Interpretation Comments NA (test code = 148 mmol/L 135-145 H 5348527143) K (test code = 3.2 mmol/L 3.5-5 L 8599797259) CL (test code = 116 mmol/L 98-108 H 0221734886) CO2 TOTAL (test code = 30 mmol/L 23-31 1816512805) AGAP (test code = 2-16 0106937446) BUN (test code = 54 mg/dL 7-23 H 9284084393) GLUCOSE (test code = 208 mg/dL 70-110 H 7940234183) CREATININE (test code = 1.05 mg/dL 0.6-1.25 9983200708) CALCIUM (test code = 8.0 mg/dL 8.6-10.6 L 5765092881) eGFR (test code = mL/min/1.73m2 2831587570) ADILENE (test code = ADILENE) Association of [...] tests). Lab Interpretation Abnormal (test code = 05529-6) [facility] WITHOUT [id number] 08:31:28 Test Item Value Reference Range Interpretation Comments WBC (test code = 6690-2) See_Comment H [A utomated message] The system [employer] generated this result transmit gilberto reference range : 4.20 - 10.70 10*3/?L. The reference range was not used to interpret this result as normal/abnormal . RBC (test code = 789-8) See_Comment L [Au tomated message] The system [employer] generated this result transmit gilberto reference range [...] 777-3) See_Comment [Au tomated message] The system [employer] generated this result transmit gilberto reference range : 150 - 328 10*3/?L. The reference range was not used to interpret this result as normal/abnormal . MPV (test code = 11.1 fL 9.8-13 97809-3) RDW-CV (test code = 16.8 % 12.1-15.4 H 788-0) RDW-SD (test code = 62.1 fL 38.5-51.6 H 87295-3) NRBC x10^3 (test code = See_Comment [Au tomated message] 6214577607) The system [employer] generated this result transmit gilberto reference range : 10*3/?L. The reference range was not used to interpret this result as normal/abnormal . NRBC/100 WBC (test code See_Comment [Au tomated message] = 7386253327) The system [facility] generated this result transmit gilberto reference range : 0.0 - 10.0 /100 WBC s. The reference r lisa was not used to interpret this result as normal/abnormal . IPF % (test code = 7495771098) Lab Interpretation (test Abnormal code = 13094-1) [facility] WITH [id number] 11:30:58 Test Item Value Reference Range Interpretation [...] (test code = 60.6 fL 38.5-51.6 H 39833-9) RDW-CV (test code = 16.8 % 12.1-15.4 H 788-0) PLT (test code = See_Comment [Automated 777-3) message] The system which generated this result transmit gilberto reference range : 150 - 328 10*3/ ?L. The reference range was not u sed to interpret th is result as normal/abnormal . MPV (test code = 10.5 fL 9.8-13 23387-1) NRBC/100 WBC (test See_Comment [Automat ed code = 5555669407) message] The system which generated this result transmit gilberto reference range : 0.0 - 10.0 /100 WBCs. The reference range was not used to interpret this result as normal/abnormal . NRBC x10^3 (test code See_Comment [Auto mated = 4218388781) message] The system which generated this result transmit gilberto reference range : 10*3/?L. The reference range was not used to interpret this result as normal/abnormal . GRAN MAT (NEUT) % 89.4 % (test code = 770-8) IMM GRAN % (test code 0.80 % = 2610458664) LYMPH % (test code = 4.6 % 736-9) MONO % (test code = 3.6 % 5905-5) EOS % (test code = 1.4 % 713-8) BASO % (test code = 0.2 % 706-2) GRAN MAT x10^3(ANC) 14.83 10*3/uL 1.99-6.95 H (test code = 1246433259) IMM GRAN x10^3 (test 0.13 10*3/uL 0-0.06 H code = 8110480597) LYMPH x10^3 (test code 0.77 10*3/uL 1.09-3.23 L = 731-0) MONO x10^3 (test code 0.59 10*3/uL 0.36-1.02 = 742-7) EOS x10^3 (test code = 0.23 10*3/uL 0.06-0.53 711-2) BASO x10^3 (test code 0.03 10*3/uL 0.01-0.09 = 704-7) TOXIC CHANGES (test Present A code = 803-7) Lab Interpretation Abnormal (test code = 12560-6) [facility] METABOLIC PANEL (NA, K, CL, CO2, GLUCOSE, BUN, CREATININE, CA)2022-02-17 11:16:59 Test Item Value Reference Range Interpretation Comments NA (test code = 151 mmol/L 135-145 H 1457136686) K (test code = 3.4 mmol/L 3.5-5 L 5931280359) CL (test code = 118 mmol/L 98-108 H 5632461403) CO2 TOTAL (test code = 30 mmol/L 23-31 7580018596) AGAP (test code = 2-16 6854868325) BUN (test code = 53 mg/dL 7-23 H 9120456944) GLUCOSE (test code = 124 mg/dL 70-110 H 1320597564) CREATININE (test code = 1.03 mg/dL 0.6-1.25 7967392596) CALCIUM (test code = 8.7 mg/dL 8.6-10.6 3195083902) eGFR (test code = mL/min/1.73m2 0610530598) ADILENE (test code = ADILENE) Association of [...] tests). Lab Interpretation Abnormal (test code = 96859-1) [facility] Test Item Value Reference Range Interpretation Comments ALBUMIN (test code = 6894962475) 2.6 g/dL 3.5-5 L Lab Interpretation (test code = Abnormal 17308-6) [facility] 11:16:59 Test Item Value Reference Range Interpretation Comments MAGNESIUM (test code = 4435359349) 2.4 mg/dL 1.7-2.4 Lab Interpretation (test code = Normal 42775-7) [facility] 11:16:59 Test Item Value Reference Range Interpretation Comments PHOSPHORUS (test code = 1477517263) 3.5 mg/dL 2.5-5 Lab Interpretation (test code = Normal 80969-0) [facility] HospitalFERRITIN [id number] 00:36:14 Test Item Value Reference Range Interpretation Comments FERRITIN (test code = 664.0 ng/mL 18-464 H 3343459498) ADILENE (test code = ADILENE) Biotin has been reported to cause a negative bias, interpret results relative to patient's use of biotin. Lab Interpretation (test Abnormal code = 89005-9) [facility]TOTAL IRON BINDING [id number] 00:12:15 Test Item Value Reference Range Interpretation Comments TIBC (test code = 1443943213) 172 ug/dL 250-410 L % FE SAT (test code = 0445022944) 18 % 20-50 L Lab Interpretation (test code = Abnormal 63938-4) [facility]2022-[facility] 00:01:30 Test Item Value Reference Range Interpretation Comments IRON (test code = 1483409518) 31 ug/dL 50-160 L Lab Interpretation (test code = Abnormal 51670-3) [facility]2022-[facility]-01 22:43:23 Test Item Value Reference Range Interpretation Comments NA (test code = 4179036893) 153 mmol/L 135-145 H Lab Interpretation (test code = Abnormal 43211-5) [facility]AL[facility]IN2022-07-01 21:11:33 Test Item Value Reference Interpretation Comments Range Procalcitonin (test 0.12 ng/mL See_Comment H [Automa gilberto code = 4043312985) message] The system which generated this result [...] lung abscess/empyema. For further information please refer to:[email or web address] Lab Interpretation Abnormal (test code = 75670-1) [facility]N-TERMINAL BAR-[id number] 17:50:41 Test Item Value Reference Range Interpretation Comments NT-proBNP (test code 65285 pg/mL See_Comment H [Autom ated = 7416504783) message] The system which generated this result transmitted reference range : <=450. The reference range was not used to interpret this result as normal/abnormal . ADILENE (test code = ADILENE) Biotin has been reported to cause a negative bias, interpret results relative to patient's use of biotin. Lab Interpretation Abnormal (test code = 51928-5) [facility]OL[facility] (NA, K, CL, CO2, GLUCOSE, BUN, CREATININE, CA)2022-02-16 10:59:14 Test Item Value Reference Range Interpretation Comments NA (test code = 154 mmol/L 135-145 H 9998338398) K (test code = 3.8 mmol/L 3.5-5 1344954847) CL (test code = 117 mmol/L 98-108 H 5353796755) CO2 TOTAL (test code = 33 mmol/L 23-31 H 2490737895) AGAP (test code = 2-16 9556957888) BUN (test code = 50 mg/dL 7-23 H 6437036530) GLUCOSE (test code = 130 mg/dL 70-110 H 2329009753) CREATININE (test code = 1.08 mg/dL 0.6-1.25 1032860763) CALCIUM (test code = 8.7 mg/dL 8.6-10.6 9097445719) eGFR (test code = mL/min/1.73m2 4055228625) ADILENE (test code = ADILENE) Association of [...] tests). Lab Interpretation Abnormal (test code = 03304-0) [facility]2022[facility] 10:59:14 Test Item Value Reference Range Interpretation Comments MAGNESIUM (test code = 6297539824) 2.3 mg/dL 1.7-2.4 Lab Interpretation (test code = Normal 33944-2) [facility] HospitalBLOOD GAS W/[id number] 10:40:00 Test Item Value Reference Range Interpretation [...] 4.5-7.0 code = KBD) MEQ/L BLOOD GAS W/[id number] 10:39:00 Test Item Value Reference Range Interpretation [...] (test code = 152 mmol/L 135-145 H 7176101956) K (test code = 3.2 mmol/L 3.5-5 L 6232413229) CL (test code = 117 mmol/L 98-108 H 7209014837) CO2 TOTAL (test code = 32 mmol/L 23-31 H 8483113696) AGAP (test code = 2-16 5964888469) BUN (test code = 48 mg/dL 7-23 H 2288961197) GLUCOSE (test code = 148 mg/dL 70-110 H 4150549122) CREATININE (test code = 1.26 mg/dL 0.6-1.25 H 0620794345) CALCIUM (test code = 8.7 mg/dL 8.6-10.6 5997371346) eGFR (test code = mL/min/1.73m2 3859943778) ADILENE (test code = ADILENE) Association of [...] tests). Lab Interpretation Abnormal (test code = 78750-9) [facility] WITH [id number] 09:35:07 Test Item Value Reference Range Interpretation [...] (test code = 57.7 fL 38.5-51.6 H 57397-3) RDW-CV (test code = 16.3 % 12.1-15.4 H 788-0) PLT (test code = See_Comment [Automated 777-3) message] The system which generated this result transmit gilberto reference range : 150 - 328 10*3/ ?L. The reference range was not u sed to interpret th is result as normal/abnormal . MPV (test code = 10.9 fL 9.8-13 99550-6) NRBC/100 WBC (test See_Comment [Automat ed code = 1761711085) message] The system which generated this result transmit gilberto reference range : 0.0 - 10.0 /100 WBCs. The reference range was not used to interpret this result as normal/abnormal . NRBC x10^3 (test code See_Comment [Auto mated = 1767150966) message] The system which generated this result transmit gilberto reference range : 10*3/?L. The reference range was not used to interpret this result as normal/abnormal . GRAN MAT (NEUT) % 90.5 % (test code = 770-8) IMM GRAN % (test code 0.80 % = 6911763744) LYMPH % (test code = 4.2 % 736-9) MONO % (test code = 4.0 % 5905-5) EOS % (test code = 0.4 % 713-8) BASO % (test code = 0.1 % 706-2) GRAN MAT x10^3(ANC) 12.97 10*3/uL 1.99-6.95 H (test code = 0135815893) IMM GRAN x10^3 (test 0.11 10*3/uL 0-0.06 H code = 2205509145) LYMPH x10^3 (test code 0.60 10*3/uL 1.09-3.23 L = 731-0) MONO x10^3 (test code 0.58 10*3/uL 0.36-1.02 = 742-7) EOS x10^3 (test code = 0.06 10*3/uL 0.06-0.53 711-2) BASO x10^3 (test code 0.01-0.09 = 704-7) Lab Interpretation Abnormal (test code = 26864-4) [facility] HospitalBlood Culture - Peripheral # [id number] 00:01:24 Test Item Value Reference Range Interpretation Comments Blood Culture-Aerobic No organisms No growth Previo us (test code = 71257-2) isolated prelim inary verified result was Culture [...] Culture-Anaerobic isolated preliminar y (test code = 46845-6) verifi ed result was Culture In Progress [...] CDT Lab Interpretation Normal (test code = 02225-0) [facility] HospitalBlood [facility] - Peripheral # [id number] 00:01:24 Test Item Value Reference Range Interpretation Comments Blood Culture-Aerobic No organisms No growth Previo us (test code = 50542-0) isolated prelim inary verified result was Culture [...] Culture-Anaerobic isolated preliminar y (test code = 32485-0) verifi ed result was Culture In Progress [...] CDT Lab Interpretation Normal (test code = 24070-0) [facility]SP[facility] [id number] 22:16:49 Test Item Value Reference Range Interpretation Comments SPUTUM CULTURE (test Specimen cellular code = 622-1) elements do not represent lower respiratory tract. Specimen rejected for routine bacterial culture. Suggest reorder and recollection. Gram stain (test code Numerous Epithelial = 664-3) cells [facility]OL[facility] (NA, K, CL, CO2, GLUCOSE, BUN, CREATININE, CA)2022-02-14 21:48:21 Test Item Value Reference Range Interpretation Comments NA (test code = 150 mmol/L 135-145 H 7206396958) K (test code = 3.7 mmol/L 3.5-5 6051100637) CL (test code = 117 mmol/L 98-108 H 9436098286) CO2 TOTAL (test code = 33 mmol/L 23-31 H 4990277000) AGAP (test code = 2-16 L 2834020546) BUN (test code = 47 mg/dL 7-23 H 5749979427) GLUCOSE (test code = 181 mg/dL 70-110 H 5386021050) CREATININE (test code = 1.38 mg/dL 0.6-1.25 H 7055269013) CALCIUM (test code = 8.7 mg/dL 8.6-10.6 3710042143) eGFR (test code = mL/min/1.73m2 8815421750) ADILENE (test code = ADILENE) Association of [...] tests). Lab Interpretation Abnormal (test code = 45496-1) [facility] [id number] 18:01:14 Test Item Value Reference Range Interpretation Comments SPUTUM CULTURE 3+ Yeast not Cryptococcus (test code = 622-1) species Gram stain (test Numerous Epithelial cells code = 664-3) ADILENE (test code = Bacterial pathogens ADILENE) associated with lower respiratory infections were not identified, which include Pseudomonas aeruginosa and Staphylococcus aureus (MRSA or MSSA). [facility] METABOLIC PANEL (NA, K, CL, CO2, GLUCOSE, BUN, CREATININE, CA)2022-02-14 10:35:28 Test Item Value Reference Range Interpretation Comments NA (test code = 147 mmol/L 135-145 H 3548326391) K (test code = 2.6 mmol/L 3.5-5 LL 3849007235) CL (test code = 115 mmol/L 98-108 H 0739056597) CO2 TOTAL (test code = 29 mmol/L 23-31 6750338556) AGAP (test code = 2-16 8620422119) BUN (test code = 45 mg/dL 7-23 H 7163047958) GLUCOSE (test code = 146 mg/dL 70-110 H 9502880578) CREATININE (test code = 1.41 mg/dL 0.6-1.25 H 9302685546) CALCIUM (test code = 8.4 mg/dL 8.6-10.6 L 3027075416) eGFR (test code = mL/min/1.73m2 0842754771) ADILENE (test code = ADILENE) Association of [...] tests). Lab Interpretation Abnormal (test code = 32949-1) [facility]2022-06-29 10:13:13 Test Item Value Reference Range Interpretation Comments MAGNESIUM (test code = 1561144253) 2.2 mg/dL 1.7-2.4 Lab Interpretation (test code = Normal 88669-8) [facility] WITH [id number] 09:59:50 Test Item Value Reference Range Interpretation [...] (test code = 57.8 fL 38.5-51.6 H 16803-9) RDW-CV (test code = 16.2 % 12.1-15.4 H 788-0) PLT (test code = See_Comment [Automated 777-3) message] The system which generated this result transmit gilberto reference range : 150 - 328 10*3/ ?L. The reference range was not u sed to interpret th is result as normal/abnormal . MPV (test code = 10.7 fL 9.8-13 47475-1) NRBC/100 WBC (test See_Comment [Automat ed code = 3385455837) message] The system which generated this result transmit gilberto reference range : 0.0 - 10.0 /100 WBCs. The reference range was not used to interpret this result as normal/abnormal . NRBC x10^3 (test code See_Comment [Auto mated = 7314278710) message] The system which generated this result transmit gilberto reference range : 10*3/?L. The reference range was not used to interpret this result as normal/abnormal . GRAN MAT (NEUT) % 92.4 % (test code = 770-8) IMM GRAN % (test code 0.80 % = 0388927356) LYMPH % (test code = 3.4 % 736-9) MONO % (test code = 3.0 % 5905-5) EOS % (test code = 0.2 % 713-8) BASO % (test code = 0.2 % 706-2) GRAN MAT x10^3(ANC) 11.28 10*3/uL 1.99-6.95 H (test code = 0748870351) IMM GRAN x10^3 (test 0.10 10*3/uL 0-0.06 H code = 5490722049) LYMPH x10^3 (test code 0.41 10*3/uL 1.09-3.23 L = 731-0) MONO x10^3 (test code 0.37 10*3/uL 0.36-1.02 = 742-7) EOS x10^3 (test code = 0.03 10*3/uL 0.06-0.53 L 711-2) BASO x10^3 (test code 0.01-0.09 = 704-7) Lab Interpretation Abnormal (test code = 95800-9) [facility] METABOLIC PANEL (NA, K, CL, CO2, GLUCOSE, BUN, CREATININE, CA)2022-02-13 19:54:51 Test Item Value Reference Range Interpretation Comments NA (test code = 146 mmol/L 135-145 H 3077282440) K (test code = 3.1 mmol/L 3.5-5 L 1248901179) CL (test code = 113 mmol/L 98-108 H 4927492190) CO2 TOTAL (test code = 28 mmol/L 23-31 1922293993) AGAP (test code = 2-16 3695013873) BUN (test code = 44 mg/dL 7-23 H 9487959194) GLUCOSE (test code = 117 mg/dL 70-110 H 4631814622) CREATININE (test code = 1.49 mg/dL 0.6-1.25 H 9285371041) CALCIUM (test code = 8.4 mg/dL 8.6-10.6 L 0435696921) eGFR (test code = mL/min/1.73m2 0413628895) ADILENE (test code = ADILENE) Association of [...] tests). Lab Interpretation Abnormal (test code = 38690-4) [facility] METABOLIC PANEL (NA, K, CL, CO2, GLUCOSE, BUN, CREATININE, CA)2022-02-13 11:41:41 Test Item Value Reference Range Interpretation Comments NA (test code = 142 mmol/L 135-145 5309890872) K (test code = 2.8 mmol/L 3.5-5 LL 8144613831) CL (test code = 113 mmol/L 98-108 H 2407919118) CO2 TOTAL (test code = 28 mmol/L 23-31 5657458431) AGAP (test code = 2-16 L 1343849494) BUN (test code = 46 mg/dL 7-23 H 6187017219) GLUCOSE (test code = 104 mg/dL 70-110 5466524500) CREATININE (test code = 1.45 mg/dL 0.6-1.25 H 4535428791) CALCIUM (test code = 8.2 mg/dL 8.6-10.6 L 7137755248) eGFR (test code = mL/min/1.73m2 9503876689) ADILENE (test code = ADILENE) Association of [...] tests). Lab Interpretation Abnormal (test code = 52571-3) [facility]20[facility] 11:36:18 Test Item Value Reference Range Interpretation Comments MAGNESIUM (test code = 1918967489) 2.1 mg/dL 1.7-2.4 Lab Interpretation (test code = Normal 86085-9) [facility] WITH [id number] 10:45:32 Test Item Value Reference Range Interpretation Comments WBC (test code = See_Comment H [Automated 2390-2) message] The sy stem which generated this result transmitted reference range : 4.20 - 10.70 10*3/?L. The reference range was not used to interpret this result as normal/abnormal . RBC (test code = See_Comment L [Automated 899-8) message] The sy stem which generated this [...] (test code = 57.2 fL 38.5-51.6 H 51780-4) RDW-CV (test code = 16.1 % 12.1-15.4 H 788-0) PLT (test code = See_Comment [Automated 777-3) message] The sy stem which generated this result transmitted reference range : 150 - 328 10*3/ ?L. The reference r lisa was not used to interpret this result as normal/abnormal . MPV (test code = 10.6 fL 9.8-13 35332-7) NRBC/100 WBC (test See_Comment [Automat ed code = 8988009998) message] The system which generated this result transmitted reference range : 0.0 - 10.0 /100 WBCs. The refer ence range was not u sed to interpret th is result as normal/abnormal . NRBC x10^3 (test code See_Comment [Auto mated = 0048800444) message] The s ystem which generated this result transmitted reference range : 10*3/?L. The reference range was not used to interpret this result as normal/abnormal . GRAN MAT (NEUT) % 90.3 % (test code = 770-8) IMM GRAN % (test code 1.10 % = 0887639146) LYMPH % (test code = 4.4 % 736-9) MONO % (test code = 3.8 % 5905-5) EOS % (test code = 0.3 % 713-8) BASO % (test code = 0.1 % 706-2) GRAN MAT x10^3(ANC) 9.75 10*3/uL 1.99-6.95 H (test code = 2695555352) IMM GRAN x10^3 (test 0.12 10*3/uL 0-0.06 H code = 5314688610) LYMPH x10^3 (test code 0.47 10*3/uL 1.09-3.23 L = 731-0) MONO x10^3 (test code 0.41 10*3/uL 0.36-1.02 = 742-7) EOS x10^3 (test code = 0.03 10*3/uL 0.06-0.53 L 711-2) BASO x10^3 (test code 0.01-0.09 = 704-7) Lab Interpretation Abnormal (test code = 17159-8) [facility] METABOLIC PANEL (NA, K, CL, CO2, GLUCOSE, BUN, CREATININE, CA)2022-02-12 10:37:31 Test Item Value Reference Range Interpretation Comments NA (test code = 143 mmol/L 135-145 6317015292) K (test code = 3.4 mmol/L 3.5-5 L 9749563574) CL (test code = 113 mmol/L 98-108 H 9431250255) CO2 TOTAL (test code = 24 mmol/L 23-31 7674248492) AGAP (test code = 2-16 9105993370) BUN (test code = 48 mg/dL 7-23 H 0268229875) GLUCOSE (test code = 83 mg/dL 70-110 4403963060) CREATININE (test code = 1.73 mg/dL 0.6-1.25 H 6933552859) CALCIUM (test code = 8.2 mg/dL 8.6-10.6 L 7691792185) eGFR (test code = mL/min/1.73m2 0547167861) ADILENE (test code = ADILENE) Association of [...] tests). Lab Interpretation Abnormal (test code = 55553-4) [facility] Without [id number] 10:14:11 Test Item Value Reference Range Interpretation Comments WBC (test code = 6690-2) See_Comment [A utomated message] The system [employer] generated this result transmit gilberto reference range : 4.20 - 10.70 10*3/?L. The reference range was not used to interpret this result as normal/abnormal . RBC (test code = 789-8) See_Comment L [Au tomated message] The system [employer] generated this result transmit gilberto reference range [...] 777-3) See_Comment [Au tomated message] The system [employer] generated this result transmit gilberto reference range : 150 - 328 10*3/?L. The reference range was not used to interpret this result as normal/abnormal . MPV (test code = 10.3 fL 9.8-13 49355-6) RDW-CV (test code = 16.3 % 12.1-15.4 H 788-0) RDW-SD (test code = 60.3 fL 38.5-51.6 H 17039-7) NRBC x10^3 (test code = See_Comment [Au tomated message] 7575366403) The system [employer] generated this result transmit gilberto reference range : 10*3/?L. The reference range was not used to interpret this result as normal/abnormal . NRBC/100 WBC (test code See_Comment [Au tomated message] = 1874893591) The system [facility] generated this result transmit gilberto reference range : 0.0 - 10.0 /100 WBC s. The reference r lisa was not used to interpret this result as normal/abnormal . IPF % (test code = 8668496633) Lab Interpretation (test Abnormal code = 89750-0) [facility]K+GLU+CA2+2022-02-12 09:55:36 Test Item Value Reference Range Interpretation Comments PH (test code = 2) 7.35-7.45 PCO2 (test code = See_Comment [Automate d message] 0229186313) The system [employer] generated this result transmit gilberto reference range : 35 - 45 mmHg. The reference range was not used to interpret this result as normal/abnormal . PO2 (test code = See_Comment L [Automated message] 7920080369) The system [employer] generated this result transmit gilberto reference range : 80 - 100 mmHg. The reference range was not used to interpret this result as normal/abnormal . HCO3 (test code = See_Comment L [Automate d message] 0019453891) The system [employer] generated this result transmit gilberto reference range : 22 - 26 mEq/L. The reference range was not used to interpret this result as normal/abnormal . BE (test code = See_Comment L [Automated message] 0658864665) The system [employer] generated this result transmit gilberto reference range : -3.0 - 3.0 mEq/ L. The reference r lisa was not used to interpret this result as normal/abnormal . THB (test code = 8.9 g/dL 13.5-18 L 8706267155) %O2HB (test code = 93.9 % 94-99 L 7572908263) %COHB ART (test code = 0.3 % 0-1.5 7451336582) %METHB ART (test code = 0.3 % 0.4-1.5 L 1099838079) VOL%O2 ART (test code = 11.9 % 15-23 L 0471281153) NA (test code = 141 mmol/L 135-145 9034191798) K+ (test code = 3.1 mmol/L 3.5-5 L 5020558374) AC CA IONZ (test code = 4.70 mg/dL 4.5-5.3 9008699983) GLUCOSE (test code = 83 mg/dL 70-110 3575702725) Lab Interpretation Abnormal (test code = 30599-2) [facility]12:23 Test Item Value Reference Range Interpretation Comments POCT GLU (test code = 4488833548) 74 mg/dL 70-110 Lab Interpretation (test code = Normal 24803-0) [facility] METABOLIC PANEL (NA, K, CL, CO2, GLUCOSE, BUN, CREATININE, CA)2022-02-11 23:45:13 Test Item Value Reference Range Interpretation Comments NA (test code = 141 mmol/L 135-145 [id number]) K (test code = 3.9 mmol/L 3.5-5 9084251975) CL (test code = 112 mmol/L 98-108 H 1387497880) CO2 TOTAL (test code = 23 mmol/L 23-31 9603499470) AGAP (test code = 2-16 5071336729) BUN (test code = 48 mg/dL 7-23 H 8351084524) GLUCOSE (test code = 51 mg/dL 70-110 L 7536659687) CREATININE (test code = 1.48 mg/dL 0.6-1.25 H 0482270087) CALCIUM (test code = 8.1 mg/dL 8.6-10.6 L 7635245436) eGFR (test code = mL/min/1.73m2 5569892857) ADILENE (test code = ADILENE) Association of [...] tests). Lab Interpretation Abnormal (test code = 41224-9) [facility] (for use with Heparin Infusion)2022-02-11 22:46:14 Test Item Value Reference Range Interpretation Comments APTT Patient (test code See_Comment H [Au tomated message] = 3173-2) The system [employer] generated this result transmitted ref erence range: 26 - 36 Seconds. The reference range was not used to int erpret this result as normal/abnormal . Lab Interpretation (test Abnormal code = 45564-7) [facility] (for use with Heparin Infusion)2022-02-11 11:40:02 Test Item Value Reference Range Interpretation Comments APTT Patient (test code See_Comment H [Au tomated message] = 3173-2) The system [employer] generated this result transmitted ref erence range: 26 - 36 Seconds. The reference range was not used to int erpret this result as normal/abnormal . Lab Interpretation (test Abnormal code = 64788-2) [facility] [id number] 10:44:56 Test Item Value Reference Range Interpretation Comments WBC (test code = 6690-2) See_Comment [A utomated message] The system [employer] generated this result transmit gilberto reference range : 4.20 - 10.70 10*3/?L. The reference range was not used to interpret this result as normal/abnormal . RBC (test code = 789-8) See_Comment L [Au tomated message] The system [employer] generated this result transmit gilberto reference range [...] 777-3) See_Comment [Au tomated message] The system [employer] generated this result transmit gilberto reference range : 150 - 328 10*3/?L. The reference range was not used to interpret this result as normal/abnormal . MPV (test code = 10.7 fL 9.8-13 64326-9) RDW-CV (test code = 16.2 % 12.1-15.4 H 788-0) RDW-SD (test code = 59.7 fL 38.5-51.6 H 25916-4) NRBC x10^3 (test code = See_Comment [Au tomated message] 5561986560) The system [employer] generated this result transmit gilberto reference range : 10*3/?L. The reference range was not used to interpret this result as normal/abnormal . NRBC/100 WBC (test code See_Comment [Au tomated message] = 6991203923) The system [facility] generated this result transmit gilberto reference range : 0.0 - 10.0 /100 WBC s. The reference r lisa was not used to interpret this result as normal/abnormal . IPF % (test code = 8935940675) Lab Interpretation (test Abnormal code = 44607-1) [id number] 23:26:46 Test Item Value Reference Interpretation Comments Range TROPONIN I (test 2.360 ng/mL See_Comment H Hemolyzed code = 7341174299) specimen [Automated message] The system which generated [...] biotin. Lab Interpretation Abnormal (test code = 39434-3) [facility]2022-02-10 22:26:26 Test Item Value Reference Range Interpretation Comments Height (test code = in 9459934772) Weight (test code = lbs 3527461899) Systolic BP (test code = mmHg 3685130654) Diastolic BP (test code mmHg = 5958262646) Heart Rate (test code = bpm 1415235872) BSA (test code = 2.10 m2 2671660570) LVOT stroke volume (test 58.00 cm3 code = 4408288289) EF(MOD-bp) (test code = 37.90 % 3091095993) EF(Teich) (test code = 42.20 % 6425397945) LVIDD (test code = 3.70 cm 4724664175) LV Systolic Volume (BP) 109.2 mL (test code = 0493198748) LVIDS (test code = 3.00 cm 7829308428) LV Diastolic Volume (BP) 175.9 mL (test code = 8240289276) IVS (test code = 1.20 cm 5649543662) LVPWD (test code = 1.21 cm 2688142079) LVOT diameter (test code 2.13 cm = 2672453408) FS (test code = 20 % 4627494290) MV Peak E Anh (test code 47.1 cm/s = 9837127088) MV Peak A Anh (test code 44.6 cm/s = 0134461687) E/A ratio (test code = ratio 4310254098) E wave decelartion time 0.45 s (test code = 2076760974) LA Volume Index (BP) 29.3 mL/m2 (test code = 8635708748) LA volume (BP) (test 61.5 mL code = 4293706496) LVOT peak anh (test code 84.6 cm/s = 1197460392) LVOT mn grad (test code mmHg = 4787672796) SV(MOD-bp) (test code = 66.70 mL 0766829702) LA size (test code = 5.7 cm 1154443435) LAV(MOD-sp2) (test code 63.40 mL = 7988589815) LAV(MOD-sp4) (test code 51.10 mL = 2444573609) Tapse (test code = 2.44 cm 1871107313) Ao peak anh (test code = 123.5 cm/s 4218871730) AV LVOT peak gradient mmHg (test code = 7527725378) LVOT peak VTI (test code 16.3 cm = 7077419659) AV area peak anh (test 2.4 cm2 code = 6189254732) ACS (test code = 1.94 cm 9562074454) LV V1 mean (test code = 52.00 cm/s 9902768923) Ao max PG (test code = 6.10 mm[Hg] 0939490090) MV Prop V (test code = 86.10 cm/s 4207663491) Ao root annulus (test 3.5 cm code = 3402477776) Ao root diam (test code 3.50 cm = 5494823614) AV peak gradient (test mmHg code = 1704722302) Aortic root (test code = 3.5 cm 2617087269) EF (test code = 38 % 9183618579) PW (test code = 1.21 cm 0.6-1.8 1583932545) EF - 2D (test code = 42.20 % 39036375) Left Ventricular Stroke 66.7 mL Volume by 2-D Biplane-MOD (test code = 5402299) Interventricular Septum 1.20 cm Diastolic Thickness by 2D (test code = 9540839) Radiology Study observation (narrative) (test code = 51632-5) ADILENE (test code = ADILENE) ?Left?Ventricle: Left [...] mL of Lumason ultrasound enhancing agent used. [facility] [id number] 17:36:46 Test Item Value Reference Interpretation Comments Range TROPONIN I (test 2.820 ng/mL See_Comment H Hemolyzed code = 8514617983) specimen [Automated message] The system which generated [...] biotin. Lab Interpretation Abnormal (test code = 21857-0) [facility] [id number] 17:06:05 Test Item Value Reference Range Interpretation Comments APTT Patient (test code See_Comment H [Au tomated message] = 8593-2) The system [employer] generated this result transmitted ref erence range: 26 - 36 Seconds. The reference range was not used to int erpret this result as normal/abnormal . Lab Interpretation (test Abnormal code = 54667-1) [facility] [id number] 09:42:31 Test Item Value Reference Range Interpretation [...] (test code = 57.4 fL 38.5-51.6 H 43464-4) RDW-CV (test code = 16.1 % 12.1-15.4 H 788-0) PLT (test code = See_Comment [Automated 777-3) message] The system which generated this result transmit gilberto reference range : 150 - 328 10*3/ ?L. The reference range was not u sed to interpret th is result as normal/abnormal . MPV (test code = 10.5 fL 9.8-13 77000-4) NRBC/100 WBC (test See_Comment [Automat ed code = 8676067024) message] The system which generated this result transmit gilberto reference range : 0.0 - 10.0 /100 WBCs. The reference range was not used to interpret this result as normal/abnormal . NRBC x10^3 (test code See_Comment [Auto mated = 7638286262) message] The system which generated this result transmit gilberto reference range : 10*3/?L. The reference range was not used to interpret this result as normal/abnormal . GRAN MAT (NEUT) % 87.2 % (test code = 770-8) IMM GRAN % (test code 1.50 % = 2729043841) LYMPH % (test code = 5.9 % 736-9) MONO % (test code = 5.1 % 5905-5) EOS % (test code = 0.2 % 713-8) BASO % (test code = 0.1 % 706-2) GRAN MAT x10^3(ANC) 10.38 10*3/uL 1.99-6.95 H (test code = 2315233115) IMM GRAN x10^3 (test 0.18 10*3/uL 0-0.06 H code = 1335196694) LYMPH x10^3 (test code 0.70 10*3/uL 1.09-3.23 L = 731-0) MONO x10^3 (test code 0.61 10*3/uL 0.36-1.02 = 742-7) EOS x10^3 (test code = 0.06-0.53 L 711-2) BASO x10^3 (test code 0.01-0.09 = 704-7) Lab Interpretation Abnormal (test code = 81057-9) [facility] [id number] 09:27:32 Test Item Value Reference Interpretation Comments Range TROPONIN I (test 3.000 ng/mL See_Comment H [Automated code = 3820473174) message] The system which generated this result [...] biotin. Lab Interpretation Abnormal (test code = 74339-6) [facility]. METABOLIC PANEL (22541)2022-02-10 09:17:29 Test Item Value Reference Range Interpretation Comments NA (test code = 139 mmol/L 135-145 7931398953) K (test code = 3.9 mmol/L 3.5-5 5976478305) CL (test code = 114 mmol/L 98-108 H 6421827030) CO2 TOTAL (test code = 23 mmol/L 23-31 4890709695) AGAP (test code = 2-16 5582241950) BUN (test code = 42 mg/dL 7-23 H 3408485781) GLUCOSE (test code = 86 mg/dL 70-110 5822245977) CREATININE (test code = 1.29 mg/dL 0.6-1.25 H 5906545093) TOTAL BILI (test code = 0.6 mg/dL 0.1-1.2 9950031448) CALCIUM (test code = 8.2 mg/dL 8.6-10.6 L 1573336827) T PROTEIN (test code = 4.5 g/dL 6.3-8.2 L 4921760039) ALBUMIN (test code = 2.2 g/dL 3.5-5 L 6301325134) ALK PHOS (test code = 59 U/L 34-122 2305175871) ALTv (test code = 17 U/L 5-50 1742-6) AST(SGOT) (test code = 58 U/L 13-40 H 6010731915) eGFR (test code = mL/min/1.73m2 0164091498) ADILENE (test code = ADILENE) Association of [...] tests). Lab Interpretation Abnormal (test code = 19053-2) [facility] 09:17:29 Test Item Value Reference Range Interpretation Comments MAGNESIUM (test code = 7250963515) 2.1 mg/dL 1.7-2.4 Lab Interpretation (test code = Normal 95430-9) [facility] [id number] 09:17:09 Test Item Value Reference Range Interpretation Comments APTT Patient (test code See_Comment H [Au tomated message] = 3173-2) The system whic h generated this result transmitted ref erence range: 26 - 36 Seconds. The reference range was not used to int erpret this result as normal/abnormal . Lab Interpretation (test Abnormal code = 38833-4) [facility] 20 + Lactic [id number] 07:50:00 Test Item Value Reference Range Interpretation Comments PH (test code = 2) 7.35-7.45 PCO2 (test code = See_Comment [Automate d 4842488081) message] The sy stem which generated this result transmitted reference range : 35 - 45 mmHg. The reference range was not used to interpret this result as normal/abnormal . PO2 (test code = See_Comment H [Automated 7721615322) message] The sy stem which generated this result transmitted reference range : 80 - 100 mmHg. The reference range was not used to interpret this result as normal/abnormal . HCO3 (test code = See_Comment [Automate d 2624752782) message] The sy stem which generated this result transmitted reference range : 22 - 26 mEq/L. The reference range was not used to interpret this result as normal/abnormal . BE (test code = See_Comment [Automated 2009023379) message] The sy stem which generated this result transmitted reference range : -3.0 - 3.0 mEq/ L. The reference r lisa was not used to interpret this result as normal/abnormal . THB (test code = 8.6 g/dL 13.5-18 L 5227589905) %O2HB (test code = 97.5 % 94-99 2702559897) %COHB ART (test code = 0.3 % 0-1.5 8085023220) %METHB ART (test code = 0.6 % 0.4-1.5 4792863872) VOL%O2 ART (test code = 12.1 % 15-23 L 3288092254) NA (test code = 138 mmol/L 135-145 1027602259) K+ (test code = 3.8 mmol/L 3.5-5 5887564093) AC CA IONZ (test code = 4.70 mg/dL 4.5-5.3 2341312306) GLUCOSE (test code = 92 mg/dL 70-110 6035550905) LACTIC ACID (test code 0.90 mmol/L 0.5-2.2 = 7268248764) Lab Interpretation Abnormal (test code = 14033-4) [facility]a, Unfractionated Heparin 2022-02-10 06:12:55 Test Item Value Reference Range Interpretation Comments Anti-Xa UFH (test code = See_Comment H [A utomated message] 3274-8) The system [employer] generated this result transmitted ref erence range: 0.30 - 0 .70 IU/mL. The refe rence range was not u sed to interpret this result as normal/abnor mal. Lab Interpretation (test Abnormal code = 39365-3) [facility] HospitalN-TERMINAL [id number] 00:05:44 Test Item Value Reference Range Interpretation Comments NT-proBNP (test code 57663 pg/mL See_Comment H [Autom ated = 1028217529) message] The system which generated this result transmitted reference range : <=450. The reference range was not used to interpret this result as normal/abnormal . ADILENE (test code = ADILENE) Biotin has been reported to cause a negative bias, interpret results relative to patient's use of biotin. Lab Interpretation Abnormal (test code = 51363-7) [facility] [id number] 23:53:19 Test Item Value Reference Interpretation Comments Range TROPONIN I (test 3.400 ng/mL See_Comment H [Automated code = 7534999354) message] The system which generated this result [...] biotin. Lab Interpretation Abnormal (test code = 91252-3) [facility]. METABOLIC PANEL (70706)2022-02-09 23:40:58 Test Item Value Reference Range Interpretation Comments NA (test code = 140 mmol/L 135-145 1235914097) K (test code = 4.2 mmol/L 3.5-5 3466006837) CL (test code = 113 mmol/L 98-108 H 6908053595) CO2 TOTAL (test code = 24 mmol/L 23-31 3961911263) AGAP (test code = 2-16 5669522363) BUN (test code = 41 mg/dL 7-23 H 5318504440) GLUCOSE (test code = 88 mg/dL 70-110 7186263475) CREATININE (test code = 1.09 mg/dL 0.6-1.25 3423486270) TOTAL BILI (test code = 0.5 mg/dL 0.1-1.3 6581973187) CALCIUM (test code = 8.6 mg/dL 8.6-10.6 9202256538) T PROTEIN (test code = 4.5 g/dL 6.3-8.2 L 7984295404) ALBUMIN (test code = 2.4 g/dL 3.5-5 L 9094198355) ALK PHOS (test code = 71 U/L 34-122 3571008715) ALTv (test code = 19 U/L 5-50 1742-6) AST(SGOT) (test code = 26 U/L 13-40 6397849588) eGFR (test code = mL/min/1.73m2 2874610037) ADILENE (test code = ADILENE) Association of [...] tests). Lab Interpretation Abnormal (test code = 06326-0) [facility]IP[facility]2022-[facility] 23:40:38 Test Item Value Reference Range Interpretation Comments LIPASE (test code = 3281855951) 160 U/L 0-220 Lab Interpretation (test code = Normal 35670-1) [facility] [id number] 23:39:37 Test Item Value Reference Range Interpretation Comments APTT Patient (test See_Comment [Automat ed code = 3173-2) message] The system which generated this result transmitted reference range : 23 - 38 Seconds . The reference range was not used to interpr et this result as normal/abnormal . ADILENE (test code = ADILENE) [facility] patient population mean normal value for aPTT is 30 seconds. Lab Interpretation Normal (test code = 89944-2) [facility] HospitalPROTHROMBIN TIME / [id number] 23:37:36 Test Item Value Reference Range Interpretation [...] tions. Lab Interpretation (test Abnormal code = 21703-2) [facility] WITH [id number] 23:30:38 Test Item Value Reference Range Interpretation [...] (test code = 55.3 fL 38.5-51.6 H 89413-5) RDW-CV (test code = 15.9 % 12.1-15.4 H 788-0) PLT (test code = See_Comment [Automated 777-3) message] The system which generated this result transmit gilberto reference range : 150 - 328 10*3/ ?L. The reference range was not u sed to interpret th is result as normal/abnormal . MPV (test code = 10.8 fL 9.8-13 71534-4) NRBC/100 WBC (test See_Comment [Automat ed code = 2819460700) message] The system which generated this result transmit gilberto reference range : 0.0 - 10.0 /100 WBCs. The reference range was not used to interpret this result as normal/abnormal . NRBC x10^3 (test code See_Comment [Auto mated = 0313490197) message] The system which generated this result transmit gilberto reference range : 10*3/?L. The reference range was not used to interpret this result as normal/abnormal . GRAN MAT (NEUT) % 88.9 % (test code = 770-8) IMM GRAN % (test code 0.90 % = 5256107186) LYMPH % (test code = 5.2 % 736-9) MONO % (test code = 4.8 % 5905-5) EOS % (test code = 0.1 % 713-8) BASO % (test code = 0.1 % 706-2) GRAN MAT x10^3(ANC) 12.55 10*3/uL 1.99-6.95 H (test code = 6547219266) IMM GRAN x10^3 (test 0.12 10*3/uL 0-0.06 H code = 7872801716) LYMPH x10^3 (test code 0.73 10*3/uL 1.09-3.23 L = 731-0) MONO x10^3 (test code 0.67 10*3/uL 0.36-1.02 = 742-7) EOS x10^3 (test code = 0.06-0.53 L 711-2) BASO x10^3 (test code 0.01-0.09 = 704-7) Lab Interpretation Abnormal (test code = 36347-4) [facility] 20 + Lactic [id number] 23:03:37 Test Item Value Reference Range Interpretation Comments PH (test code = 2) 7.35-7.45 H PCO2 (test code = See_Comment L [Automate d 3129407284) message] The sy stem which generated this result transmitted reference range : 35 - 45 mmHg. The reference range was not used to interpret this result as normal/abnormal . PO2 (test code = See_Comment L [Automated 3617488351) message] The sy stem which generated this result transmitted reference range : 80 - 100 mmHg. The reference range was not used to interpret this result as normal/abnormal . HCO3 (test code = See_Comment L [Automate d 6597605566) message] The sy stem which generated this result transmitted reference range : 22 - 26 mEq/L. The reference range was not used to interpret this result as normal/abnormal . BE (test code = See_Comment [Automated 9045625432) message] The sy stem which generated this result transmitted reference range : -3.0 - 3.0 mEq/ L. The reference r lisa was not used to interpret this result as normal/abnormal . THB (test code = 9.3 g/dL 13.5-18 L 3306181371) %O2HB (test code = 95.6 % 94-99 9981776175) %COHB ART (test code = 0.3 % 0-1.5 2313747118) %METHB ART (test code = 0.3 % 0.4-1.5 L 1416328486) VOL%O2 ART (test code = 12.6 % 15-23 L 0035600456) NA (test code = 138 mmol/L 135-145 6793907764) K+ (test code = 4.0 mmol/L 3.5-5 4534005505) AC CA IONZ (test code = 5.00 mg/dL 4.5-5.3 2777123945) GLUCOSE (test code = 87 mg/dL 70-110 1616376067) LACTIC ACID (test code 0.92 mmol/L 0.5-2.2 = 0210923197) Lab Interpretation Abnormal (test code = 71401-4) [facility] HospitalGLU[facility]SE [id number] 11:02:00 Test Item Value Reference Range Interpretation Comments GLUCOSE BEDSIDE (test 80 MG/DL 70-110 [facility] by certified code = GLUBED) 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 [facility] GLUCOSE [id number] 15:49:00 Test Item Value Reference Range Interpretation Comments GLUCOSE BEDSIDE (test 158 MG/DL 70-110 H Perfor med by certified code = GLUBED) 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 [facility] CBC W/AUTO [id number] 12:27:00 Test Item Value Reference Range Interpretation [...] REQUIRED (test NO code = MDIFF) GLUCOSE [id number] 11:34:00 Test Item Value Reference Range Interpretation Comments GLUCOSE BEDSIDE (test 119 MG/DL 70-110 H Perfor med by certified code = GLUBED) 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 [facility] GLUCOSE [id number] 07:34:00 Test Item Value Reference Range Interpretation Comments GLUCOSE BEDSIDE (test 99 MG/DL 70-110 N Perfor med by certified code = GLUBED) 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 [facility] GLUCOSE [id number] 04:56:00 Test Item Value Reference Range Interpretation Comments GLUCOSE BEDSIDE (test 120 MG/DL 70-110 H Perfor med by certified code = GLUBED) 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 [facility] GLUCOSE [id number] 20:51:00 Test Item Value Reference Range Interpretation Comments GLUCOSE BEDSIDE (test 108 MG/DL 70-110 N Perfor med by certified code = GLUBED) 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 [facility] GLUCOSE [id number] 15:59:00 Test Item Value Reference Range Interpretation Comments GLUCOSE BEDSIDE (test 78 MG/DL 70-110 N Perfor med by certified code = GLUBED) 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 [facility] GLUCOSE [id number] 10:48:00 Test Item Value Reference Range Interpretation Comments GLUCOSE BEDSIDE (test 111 MG/DL 70-110 H Perfor med by certified code = GLUBED) 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 [facility] GLUCOSE [id number] 08:01:00 Test Item Value Reference Range Interpretation Comments GLUCOSE BEDSIDE (test 78 MG/DL 70-110 N Perfor med by certified code = GLUBED) 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 [facility] BASIC METABOLIC [id number] 07:25:00 Test Item Value Reference Range Interpretation [...] code = 8.6 mg/dL 8.0-10.5 N CA) [id number] 07:25:00 Test Item Value Reference Range Interpretation Comments PHOSPHOROUS (test code = PHOS) 3.6 MG/DL 2.5-4.9 N [id number] 07:25:00 Test Item Value Reference Range Interpretation Comments MAGNESIUM (test code = MAG) 1.93 mg/dL 1.80-2.40 N CALCIUM [id number] 07:25:00 Test Item Value Reference Range Interpretation Comments CALCIUM IONIZED (test code = LYLA) 1.19 MMOL/L 1.12-1.32 N CBC W/AUTO [id number] 07:24:00 Test Item Value Reference Range Interpretation [...] 0.02 x10 3/uL 0.0-0.1 N NRBC#) GLUCOSE [id number] 21:05:00 Test Item Value Reference Range Interpretation Comments GLUCOSE BEDSIDE (test 136 MG/DL 70-110 H Perfor med by certified code = GLUBED) 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 [facility] GLUCOSE [id number] 16:15:00 Test Item Value Reference Range Interpretation Comments GLUCOSE BEDSIDE (test 118 MG/DL 70-110 H Perfor med by certified code = GLUBED) 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 [facility] GLUCOSE [id number] 14:00:00 Test Item Value Reference Range Interpretation Comments GLUCOSE BEDSIDE (test 110 MG/DL 70-110 N Perfor med by certified code = GLUBED) 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 [facility] GLUCOSE [id number] 11:22:00 Test Item Value Reference Range Interpretation Comments GLUCOSE BEDSIDE (test 146 MG/DL 70-110 H Perfor med by certified code = GLUBED) 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 [facility] BASIC METABOLIC [id number] 05:37:00 Test Item Value Reference Range Interpretation [...] code = 8.4 mg/dL 8.0-10.5 N CA) [id number] 05:37:00 Test Item Value Reference Range Interpretation Comments PHOSPHOROUS (test code = PHOS) 4.0 MG/DL 2.5-4.9 N [id number] 05:37:00 Test Item Value Reference Range Interpretation Comments MAGNESIUM (test code = MAG) 1.90 mg/dL 1.80-2.40 N CALCIUM [id number] 05:37:00 Test Item Value Reference Range Interpretation Comments CALCIUM IONIZED (test code = LYLA) 1.25 MMOL/L 1.12-1.32 N CBC W/AUTO [id number] 05:01:00 Test Item Value Reference Range Interpretation [...] = MDIFF) - XR SWLW FUNC W/C [id number] 00:00:00 [facility] : 1940 Sex: MFAX: Tyrone Laird MD [phone] [place]: St: ADM FAX: Vinny Rosenthal MD [phone] FAX: Yaa Sifuentes DO [phone] Name: AMADOU MARCELINO ERASMO [facility] [place] : 1940 Age/S: 81/M [address] [place] [address] Unit #: [id number] Loc: G.[address] [place] [id number] Phys: Tyrone Laird MD Acct: [id number] Dis Date: Status: ADM IN PHONE #: [phone] Exam Date: 02/06/2022 1207 FAX #: [phone] Reason: TO ADVANCE FROM NECTAR THICK TO THIN LIQUIDS EXAMS: CPT CODE: [id number] XR SWLW [facility] W/C V 28807 PROCEDURE INFORMATION: Exam: FL Swallowing Function with [...] Speech Pathologist. The Radiologist WAS present in [facility] and performed the fluoroscopy portion of the study. Oral contrast of multiple consistencies (nec tar, thin and barium coated cracker) were administered using a straw. COMPARISON: CR XR CHEST 1V 02/05/2022 5:44 AM RADIATION DOSE METRICS: Fluoroscopy time (seconds): seconds= 111 Number of fluoro spotimages: images= 8 Reference air kerma (ARNAUD): 5.6 mGy FINDINGS: Assistants: None. Obstetrics Gyn: Unremarkableother than moderate mid cervical spondylosis. Procedure summary: Normal swallowing with solids and liquids. No penetration or aspiration. IMPRESSION: Unremarkable swallowing study. Please refer to the final Speech Pathology report for complete description. at 1226 Reported and signed by: Cyril Posey M.D. 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 [facility] GLUCOSE [id number] 16:52:00 Test Item Value Reference Range Interpretation Comments GLUCOSE BEDSIDE (test 93 MG/DL 70-110 N Perfor med by certified code = GLUBED) 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 [facility] GLUCOSE [id number] 11:32:00 Test Item Value Reference Range Interpretation Comments GLUCOSE BEDSIDE (test 113 MG/DL 70-110 H Perfor med by certified code = GLUBED) 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 [facility] BASIC METABOLIC [id number] 06:28:00 Test Item Value Reference Range Interpretation [...] code = 8.1 mg/dL 8.0-10.5 N CA) [id number] 06:28:00 Test Item Value Reference Range Interpretation Comments PHOSPHOROUS (test code = PHOS) 3.3 MG/DL 2.5-4.9 N [id number] 06:28:00 Test Item Value Reference Range Interpretation Comments MAGNESIUM (test code = MAG) 1.92 mg/dL 1.80-2.40 N CALCIUM [id number] 06:28:00 Test Item Value Reference Range Interpretation Comments CALCIUM IONIZED (test code = LYLA) 1.19 MMOL/L 1.12-1.32 N CBC W/AUTO [id number] 05:30:00 Test Item Value Reference Range Interpretation [...] NO = MDIFF) - XR CHEST 1 [id number] 00:00:00 [facility] : 1940 Sex: M FAX: Susanne Holliday [place]: GC St: [facility] FAX: Vinny Rosenthal MD [phone] FAX: Yaa Sifuentes DO [phone] Name: AMADOU MARCELINO [facility] : 1940 Age/S: 81/M [address] [place] [address] Unit #: [id number] Loc: G.3302 [place] [address] Phys: Susanne Holliday Acct: [id number] Dis Date: Status: ADM IN PHONE #: [phone] Exam Date: 02/05/2022641 FAX #: [phone] Reason: follow pleural effsuions. 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 [facility] GLUCOSE [id number] 17:21:00 Test Item Value Reference Range Interpretation Comments GLUCOSE BEDSIDE (test 129 MG/DL 70-110 H Perfor med by certified code = GLUBED) 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 [facility] GLUCOSE [id number] 11:31:00 Test Item Value Reference Range Interpretation Comments GLUCOSE BEDSIDE (test 112 MG/DL 70-110 H Perfor med by certified code = GLUBED) 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 [facility] COMPREHENSIVE METABOLIC [id number] 05:51:00 Test Item Value Reference Range Interpretation [...] 20-125 N TOTAL (test code = ALKP) [id number] 05:51:00 Test Item Value Reference Range Interpretation Comments PHOSPHOROUS (test code = PHOS) 3.5 MG/DL 2.5-4.9 N [id number] 05:51:00 Test Item Value Reference Range Interpretation Comments MAGNESIUM (test code = MAG) 2.01 mg/dL 1.80-2.40 N CALCIUM [id number] 05:51:00 Test Item Value Reference Range Interpretation Comments CALCIUM IONIZED (test code = LYLA) 1.21 MMOL/L 1.12-1.32 N CBC W/AUTO [id number] 05:22:00 Test Item Value Reference Range Interpretation [...] 0.00 x10 3/uL 0.0-0.1 N NRBC#) GLUCOSE [id number] 00:15:00 Test Item Value Reference Range Interpretation Comments GLUCOSE BEDSIDE (test 127 MG/DL 70-110 H Perfor med by certified code = GLUBED) 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 [facility] - XR CHEST 1 [id number] 00:00:00 [facility] : 1940 Sex: M FAX: Susanne Holliday [place]: St: [facility] FAX: Vinny Rosenthal MD [phone] FAX: Yaa Sifuentes DO [phone] Name: AMADOU MARCELINO [facility] : 1940 Age/S: 81/M [address] [place] [address] Blvd Unit #: [id number] Loc: G.0820 [place] [address] Phys: HollidayClarenceSusannemalcom GUZMAN Acct: [id number] Dis Date: Status: ADM IN PHONE #: [phone] Exam Date: 02/04/2022 0703 FAX #: [phone] Reason: follow pleural effsuions. 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 [facility] GLUCOSE [id number] 15:59:00 Test Item Value Reference Range Interpretation Comments GLUCOSE BEDSIDE (test 113 MG/DL 70-110 H Perfor med by certified code = GLUBED) 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 [facility] CALCIUM [id number] 10:56:00 Test Item Value Reference Range Interpretation Comments CALCIUM IONIZED (test code = LYLA) 1.06 MMOL/L 1.12-1.32 L LACTIC ACID [id number] 10:25:00 Test Item Value Reference Range Interpretation Comments LACTIC ACID REPEAT (test code = 1.5 mmol/l 0.4-1.9 N LACTR) [id number] 10:11:00 Test Item Value Reference Range Interpretation Comments PHOSPHOROUS (test code = PHOS) 2.9 MG/DL 2.5-4.9 N [id number] 10:11:00 Test Item Value Reference Range Interpretation Comments MAGNESIUM (test code = MAG) 2.27 mg/dL 1.80-2.40 N GLUCOSE [id number] 07:22:00 Test Item Value Reference Range Interpretation Comments GLUCOSE BEDSIDE (test 85 MG/DL 70-110 N [facility] med by certified code = GLUBED) 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 [facility] COMPREHENSIVE METABOLIC [id number] 06:12:00 Test Item Value Reference Range Interpretation [...] N TOTAL (test code = ALKP) LACTIC [id number] 06:07:00 Test Item Value Reference Range Interpretation Comments LACTIC ACID (test code = LACT) 2.1 mmol/L 0.4-1.9 H CBC W/AUTO [id number] 05:59:00 Test Item Value Reference Range Interpretation [...] NO = MDIFF) - XR CHEST 1 [id number] 00:00:00 [facility] : 1940 Sex: M FAX: Susanne Holliday [place]: St: [facility] FAX: Vinny Rosenthal MD [phone] FAX: Yaa Sifuentes DO [phone] Name: AMADOU MARCELINO [facility] : 1940 Age/S: 81/M [address] [place] [address] Blvd Unit #: [id number] Loc: [place] [address] Phys: HollidayClarenceSusanne Nissa SERRANOHOLLI Acct: [id number] Dis Date: Status: ADM IN PHONE #: [phone] Exam Date: 02/03/2022 08 FAX #: [phone] Reason: follow pleural effsuions. 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 [facility] BASIC METABOLIC [id number] 16:29:00 Test Item Value Reference Range Interpretation [...] code = 8.0 mg/dL 8.0-10.5 N CA) [id number] 16:29:00 Test Item Value Reference Range Interpretation Comments MAGNESIUM (test code = MAG) 2.36 mg/dL 1.80-2.40 CALCIUM [id number] 16:29:00 Test Item Value Reference Range Interpretation Comments CALCIUM IONIZED (test code = LYLA) 1.20 MMOL/L 1.12-1.32 N [id number] 16:27:00 Test Item Value Reference Range Interpretation Comments HGBA1C% (test code = HGBA1C%) 5.8 %A1C 4.8-6.0 N GLUCOSE [id number] 16:01:00 Test Item Value Reference Range Interpretation Comments GLUCOSE BEDSIDE (test 163 MG/DL 70-110 H Perfor med by certified code = GLUBED) 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 [facility] LACTIC ACID [id number] 15:55:00 Test Item Value Reference Range Interpretation Comments LACTIC ACID REPEAT (test code = 2.3 mmol/l 0.4-1.9 H LACTR) B-TYPE NATRIURETIC [id number] 13:07:00 Test Item Value Reference Range Interpretation Comments B-TYPE NATRIURETIC PEPTIDE > 5000.0 PG/ML 0-100 H (test code = BNP) GLUCOSE [id number] 11:46:00 Test Item Value Reference Range Interpretation Comments GLUCOSE BEDSIDE (test 132 MG/DL 70-110 H Perfor med by certified code = GLUBED) 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 [facility] POC ARTERIAL BLOOD [id number] 08:39:00 Test Item Value Reference Range Interpretation Comments POC ARTERIAL BLOOD GAS PH (test 7.470 7.35-7.45 H code = POCPHA) POC ARTERIAL BLOOD GAS PCO2 (test 24.0 mmHg 35.0-45 LL code = PRRJHQ4Q) POC TCO2 ARTERIAL (test code = 18.2 POCTCO2) POC ARTERIAL BLOOD GAS PO2 (test 102.5 mmHg 80-100.0 H code = GGIGM9R) POC HCO3 ARTERIAL (test code = 17.5 MMOL/L 22.0-26.0 LL ETWFQI6O) POC BASE EXCESS (test code = -6.2 MMOL/L -4.0-4.0 L POCBEA) POC O2 SATURATION (test code = 98.4 % 90-100 N POCO2S) ABG DELIVERY (test code = BRIGITTE) CPAP ABG VENT RESP RATE (test code = 38 /MIN RRA) ABG SITE (test code = SITEA) L Radial VIRA'S TEST (test code = ALLENS) Positive BASIC METABOLIC [id number] 08:39:00 Test Item Value Reference Range Interpretation [...] (test code = POCGLU) 173 MG/DL HEMOGLOBIN [id number] 08:39:00 Test Item Value Reference Range Interpretation Comments HEMOGLOBIN ABG (test code = HGB/ABG) 9.0 G/DL 12.5-16.9 L [id number] 08:39:00 Test Item Value Reference Range Interpretation Comments HEMATOCRIT (test code = HCT/ABG) 27 % 37.5-50.7 L POC LACTIC [id number] 08:39:00 Test Item Value Reference Range Interpretation Comments POC LACTIC ACID (test code = 2.2 mmol/l 0.9-1.7 H POCLAC) GLUCOSE [id number] 07:13:00 Test Item Value Reference Range Interpretation Comments GLUCOSE BEDSIDE (test 187 MG/DL 70-110 H [place] by certified code = GLUBED) 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 [facility] COMPREHENSIVE METABOLIC [id number] 04:46:00 Test Item Value Reference Range Interpretation [...] 20-125 N TOTAL (test code = ALKP) [id number] 04:46:00 Test Item Value Reference Range Interpretation Comments PHOSPHOROUS (test code = PHOS) 3.7 MG/DL 2.5-4.9 N [id number] 04:46:00 Test Item Value Reference Range Interpretation Comments MAGNESIUM (test code = MAG) 1.85 mg/dL 1.80-2.40 N CALCIUM [id number] 04:46:00 Test Item Value Reference Range Interpretation Comments CALCIUM IONIZED (test code = LYLA) 1.16 MMOL/L 1.12-1.32 N LACTIC [id number] 04:35:00 Test Item Value Reference Range Interpretation Comments LACTIC ACID (test code = LACT) 2.2 mmol/L 0.4-1.9 H CBC W/AUTO [id number] 04:25:00 Test Item Value Reference Range Interpretation [...] (test code NO = MDIFF) BASIC METABOLIC [id number] 04:03:00 Test Item Value Reference Range Interpretation [...] (test code = POCGLU) 199 MG/DL HEMOGLOBIN [id number] 04:03:00 Test Item Value Reference Range Interpretation Comments HEMOGLOBIN ABG (test code = 10.4 G/DL 12.5-16.9 L HGB/ABG) [id number] 04:03:00 Test Item Value Reference Range Interpretation Comments HEMATOCRIT (test code = HCT/ABG) 31 % 37.5-50.7 L POC LACTIC [id number] 04:03:00 Test Item Value Reference Range Interpretation Comments POC LACTIC ACID (test code = 1.1 mmol/l 0.9-1.7 N POCLAC) POC VENOUS BLOOD [id number] 04:03:00 Test Item Value Reference Range Interpretation Comments VIRA'S TEST (test code = ALLENS) Positive POC VENOUS BLOOD GAS PH (test 7.454 7.33-7.45 H code = POCPHV) POC VENOUS BLOOD GAS PCO2 (test 26.7 mmHg 43-47 LL code = JJXJRT6A) POC VENOUS BLOOD GAS PO2 (test 91.7 mmHG 10-50 H code = VVFYU9B) POC TCO2 VENOUS (test code = 19.6 LABXMC0N) POC HCO3 VENOUS (test code = 18.8 MMOL/L 22-27 L VWRPWB0A) POC BASE EXCESS VENOUS (test code -5.2 MMOL/L -4.0-4.0 L = POCBEV) POC O2 SATURATION VENOUS (test 97.7 % 60-80 H code = UMFI4CW) VENOUS BLOOD GAS SITE (test code L Radial = SITEV) - XR CHEST 1 [id number] 00:00:00 [facility] : 1940 Sex: M FAX: Stephan Chen MD [phone] [place]: St: [facility] FAX: Vinny Rosenthal MD [phone] FAX: Yaa Sifuentes DO [phone] Name: AMADOU MARCELINO [facility] : 1940 Age/S: 81/M [address] [place] [address] Unit #: [id number] Loc: [address] [place], [place] [address] Phys: Stephan Dodson MD Acct: [id number] Dis Date: Status: ADM IN PHONE #: [phone] Exam Date: 02/02/2022639 FAX #: [phone] Reason: PULMONARY EDEMA EXAMS: CPT CODE: [id number] XR CHEST 1 V 17363 PROCEDURE INFORMATION: Exam: XR Chest Exam date [...] Trnscrd Date/Time/By: 02/02/2022 (726) : By: [email or web address] [facility] Print D/T: S: 02/02/2022 (07) PAGE 1 Signed Report- XR SHOULDER 2 + V [id number] 00:00:00 [facility] AM[facility] : 1940 Sex: M FAX: Mary Carrasco MD [phone] [place]: St: ADM FAX: Vinny Rosenthal MD [phone] FAX: Alejandra Yaa Mcclain Lashay DIOP [phone] Name: AMADOU MARCELINO ERASMO [facility] Earnestine Gibbons : 1940 Age/S: 81/M [address] [place] [address] Unit #: [id number] Loc: .[address] [place] [address] Phys: Mary Benitez MD Acct: [id number] Dis Date: Status: ADM IN PHONE #: [phone] Exam Date: 02/01/20221707 FAX #: [phone] Reason: pain EXAMS: CPT CODE: [id number] XR SHOULDER 2 + V LT [address]322 PROCEDURE INFORMATION: Exam: XR Left Shoulder Exam [...] 02/02/2022 (813) PAGE 1 Signed ReportBASIC METABOLIC [id number] 23:23:00 Test Item Value Reference Range Interpretation [...] 8.6 mg/dL 8.0-10.5 N CA) CBC W/AUTO [id number] 23:12:00 Test Item Value Reference Range Interpretation [...] REQUIRED (test NO code = MDIFF) GLUCOSE [id number] 14:02:00 Test Item Value Reference Range Interpretation Comments GLUCOSE BEDSIDE (test 115 MG/DL 70-110 H Perfor med by certified code = GLUBED) 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 [facility] BASIC METABOLIC [id number] 07:55:00 Test Item Value Reference Range Interpretation [...] be done morning of Heart CathCBC W/AUTO [id number] 07:33:00 Test Item Value Reference Range Interpretation [...] morning of Heart Cath- XR CHEST 1 [id number] 00:00:00 [facility] : 1940 Sex: M FAX: Y Quaddoura,Amer A MD [phone] [place]: St: ADM FAX: Vinny Rosenthal MD [phone] FAX: Yaa Sifuentes DO [phone] Name: CHARIAMADOU ERASMO [facility] [place] : 1940 Age/S: 81/M [address] [place] [address] Unit #: [id number] Loc: G.[address] [place] [address] Phys: Stephan Dodson MD Acct: [id number] Dis Date: Status: ADM IN PHONE #: [phone] Exam Date: 02/01/20222208 FAX #: [phone] Reason: PULMONARY EDEMA/SOB EXAMS: CPT CODE: [id number] XR CHEST 1 V 34277 PROCEDURE INFORMATION: Exam: XR Chest Exam date [...] edema and pneumonia. Please correlate clinically. at 5839 Reported and signed by: Radha Downs M.D. CC: Stephan Dodson MD; Vinny Waggoner MD; Yaa Mcclain DO Technologist: MARLON Dougherty) Manju Date/Time/By: 02/01/2022 (0175) : By: RobbieYA Yara Print D/T: S: 02/01/2022 (2066) PAGE 1 Signed Report- XR CHEST 1 [id number] 00:00:00 [facility] : 1940 Sex: M FAX: Vinny Rosenthal MD [phone] [place]: St: [facility] FAX: Cedrick Peterson [phone] -------- Name: AMADOU MARCELINO [facility] : 1940 Age/S: 81/M [address] [place] [address] Unit #: [id number] Loc: [address] [place] [address] Phys: Cedrick PetersonP Acct: [id number] Dis Date: Status: ADM IN PHONE #: Exam Date: 01/31/20221951 FAX #: [phone] Reason: PRE PCI EXAMS: CPT CODE: [id number] XR CHEST 1 V 49153 PROCEDURE INFORMATION: Exam: XR Chest Exam date [...] D/T: S: 02/01/2022 (809) PAGE 1 Signed [id number]-[id number] 15:34:00 Test Item Value Reference Range Interpretation Comments ACT-ISTAT (test code 271 SEC 74-137 H Perform ed by certified = ACTI) 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 [facility] [id number] 15:34:00 Test Item Value Reference Range Interpretation Comments ACT-ISTAT (test code 265 SEC 74-137 H Perform ed by certified = ACTI) 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 [facility] [id number] 14:57:00 Test Item Value Reference Range Interpretation Comments ACT-ISTAT (test code 254 SEC 74-137 H Perform ed by certified = ACTI) 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 Plasma Specialist ID - PIAYA LTROPONIN [id number] 01:52:00 Test Item Value Reference Range Interpretation [...] failure, acidosis, acute neurological disease, and persistent tachyarrhythmia.Plasma Specialist ID - RAY LMR, BRAIN, WITHOUT [id number] 22:32:00Unlisted Reason for Exam - Click Yes [...] helpful for further evaluation. Signed: Etienne Mancia [facility] Verified Date/Time: 04/05/2020 22:32:21 MR, MRA, BRAIN, WITHOUT [id number] 22:26:00 Reason for exam:->Ischemic Stroke EvaluationFINAL REPORT MRA head and neck without contrast. CLINICAL HISTORY: Stroke, follow up. Ischemic stroke evaluation. COMPARISON: None. TECHNIQUE: Two- and three- dimensional saov-vp-odtvnb MRA images of the intra- and extracranial carotid and vertebral arterial circulations were obtained, from which maximal intensity projection 3-D reconstructions were created. FINDINGS: MRA neck: There is no vessel occlusion or NASCET-quantifiable stenosis in the extracranial carotid or vertebral arterial circulations. Flow is antegrade in both vertebral arteries. MRA [place]: There is novessel occlusion, flow-limiting [...] evaluation. COMPARISON: None. TECHNIQUE: Two- and three-dimensional aimk-st-lvgafa MRA images of the intra- and extracranial carotid and vertebral arterial circulations were obtained, from which maximal intensity projection 3-D reconstructions were created. FINDINGS: MRA neck: There is no vessel occlusion or NASCET-quantifiable stenosis in the extracranial carotid or vertebral arterial circulations. Flow is antegrade in both vertebral arteries. MRA [place]: There is novessel occlusion, flow-limiting stenosis, or aneurysm in the intracranial carotid or vertebrobasilararterial circulations. IMPRESSION: Negative intra- and extracranial MRAs. Signed: Etienne Manciaort Verified Date/Time: 04/05/2020 22:26:03 HEMOGLOBIN [id number] 11:32:00 Test Item Value Reference Range Interpretation Comments HEMOGLOBIN A1C (BEAKER) (test code = 5.5 % 4.3-6.1 368) RAD, CHEST, 1 VIEW, NON [id number] 07:30:00Reason for exam:- >baselineShould this be performed at the bedside?->YesFINAL REPORT CLINICAL HISTORY: baseline TECHNIQUE: 1 view of the chest. COMPARIS ON: None IMPRESSION: There are no focal infiltrates or effusions. Incidental note is made of an azygos lobe. The cardiomediastinal silhouette is magnified by technique. The osseous structures appear intact. Signed: Lisa Mobley MDReport Verified Date/Time: 04/05/2020 07:30:03 Reading Location: [facility] Radiology Reading Room HEPATIC FUNCTION [id number] 07:17:00 Test Item Value Reference Range Interpretation [...] (test code = 15 U/L 6-55 347) Plasma Specialist ID - DBFOLATE, [id number] 06:47:00 Test Item Value Reference Range Interpretation Comments FOLATE (BEAKER) (test code = 362) > ng/mL >=7.00 Plasma Specialist ID - EDASIVITAMIN [id number] 05:50:00 Test Item Value Reference Range Interpretation Comments VITAMIN B12 (BEAKER) (test code = 620 pg/mL 213-816 774) Plasma Specialist ID - EDASITSH/FREE T4 IF [id number] 05:50:00 Test Item Value Reference Range Interpretation Comments THYROID STIMULATING HORMONE 0.513 uIU/mL 0.350-4.940 (BEAKER) (test code = 772) Plasma Specialist ID - EDASITROPONIN [id number] 04:27:00 Test Item Value Reference Range Interpretation [...] failure, acidosis, acute neurological disease, and persistent tachyarrhythmia.Plasma Specialist ID - EDASILIPID [id number] 04:24:00 Test Item Value Reference Range Interpretation [...] Borderline 130-159 High 160-189 Very High >=190 Plasma Specialist ID - EDASIBASIC METABOLIC [id number] 04:24:00 Test Item Value Reference Range Interpretation [...] S NOT APPLICABLE FOR DIALYSIS PATIEN TS. Plasma Specialist ID - [id number] 04:12:00 Test Item Value Reference Range Interpretation Comments PARTIAL THROMBOPLASTIN TIME 30.4 seconds 22.5-36.0 (BEAKER) (test code = 760) PROTHROMBIN TIME/[id number] 04:11:00 Test Item Value Reference Range Interpretation [...] mechanical heart valves.CBC W/PLT COUNT & AUTO [id number] 04:07:00 Test Item Value Reference Range Interpretation [...] 0-1 PERCENT (BEAKER) (test code = 2801) [id number] 07:24:00 Test Item Value Reference Range Interpretation Comments ACT-ISTAT (test code = ACTI) 208 SEC 74-137 H BASIC METABOLIC [id number] 08:47:00 Test Item Value Reference Range Interpretation [...] 8.7 MG/DL 8.4-10.2 N CA) CBC W/AUTO [id number] 08:17:00 Test Item Value Reference Range Interpretation [...] 0.00 K/mm3 0.0-0.1 N NRBC#) BASIC METABOLIC [id number] 06:47:00 Test Item Value Reference Range Interpretation [...] 0-189 mg/dL VERY HIGH.........>/ = 190 mg/dL [id number] 06:47:00 Test Item Value Reference Range Interpretation Comments MAGNESIUM (test code = MAG) 1.9 MG/DL 1.6-2.3 N PROTHROMBIN [id number] 06:44:00 Test Item Value Reference Range Interpretation [...] dial infarction. 2. 0 - 3.0 3. Leather Softener al prosthesis hear t valves, recurre nt systemic emboli sm. 3.0 - 4.5 PTT [id number] 06:44:00 Test Item Value Reference Range Interpretation Comments PTT ACTIVATED (test code = APTT) 33.7 SECONDS 25.1-36.5 N BASIC METABOLIC [id number] 06:36:00 Test Item Value Reference Range Interpretation [...] LDL (test MG/DL 0-99 code = LDL) [id number] 06:36:00 Test Item Value Reference Range Interpretation Comments MAGNESIUM (test code = MAG) 1.9 MG/DL 1.6-2.3 N BASIC METABOLIC [id number] 06:35:00 Test Item Value Reference Range Interpretation [...] LDL (test MG/DL 0-99 code = LDL) [id number] 06:35:00 Test Item Value Reference Range Interpretation Comments MAGNESIUM (test code = MAG) 1.9 MG/DL 1.6-2.3 N BASIC METABOLIC [id number] 06:34:00 Test Item Value Reference Range Interpretation [...] LDL (test code = LDL) MG/DL 0-99 [id number] 06:34:00 Test Item Value Reference Range Interpretation Comments MAGNESIUM (test code = MAG) MG/DL 1.6-2.3 BASIC METABOLIC [id number] 06:32:00 Test Item Value Reference Range Interpretation [...] LDL (test code = LDL) MG/DL 0-99 [id number] 06:32:00 Test Item Value Reference Range Interpretation Comments MAGNESIUM (test code = MAG) MG/DL 1.6-2.3 CBC W/AUTO [id number] 06:20:00 Test Item Value Reference Range Interpretation [...] K/mm3 0.0-0.1 N NRBC#) Coronavirus 2018 nCoV [id number] 18:32:00 Test Item Value Reference Range Interpretation Comments Coronavirus 2018 nCoV Negative NEGATIVE Per ma nufacturer, Bedside [...]
[2022-04-02] MEDS ORDERED: MAGNES/ALUMIN/SIMET 30ML UCUP ONE (10:33)
[2022-04-02] MEDS ORDERED: LIDOCAINE VISCOUS 2% SOLN 15 ML UDC ONE (10:34)
[2022-04-02] MEDS ORDERED: NA CHLORIDE 0.9% 1,000 ML ONE (10:34)
[2022-04-02 10:38] LABS: Absolute Lymphocytes (CBC) 1.1 K/uL (0.7-4.9); Hematocrit 28.4 % (39.6-49.0); Lymphocytes % 7.6 % (15.3-44.8); MCV 83.6 fL (80-100); MPV 6.9 fL (7.6-11.3)
[2022-04-02 10:55] LABS: Potassium 3.8 mmol/L (3.5-5.1)
[2022-04-02] MEDS ORDERED: MORPHINE 2 MG/ML SYR ONE (11:37)
--- NOTE | 2022-04-02 12:01 | RAD REPORT ---
EXAM DESCRIPTION: RAD - Chest Single View - 04/02/2022 11:35 am CLINICAL HISTORY: Tachypnea, throat pain Chest pain. COMPARISON: Chest Single View dated 03/31/2022; Chest Single View dated 01/27/2022; Chest Single View dated 10/05/2021; Chest Single View dated 09/13/2021 FINDINGS: Portable technique limits examination quality. The lungs are emphysematous but grossly clear. The heart is normal in size. Hiatal hernia. IMPRESSION: COPD.
[2022-04-02 12:10] LABS: Protime INR 1.51
[2022-04-02 12:19] LABS: Albumin 2.6 g/dL (3.4-5.0); Bilirubin Total 0.3 mg/dL (0.2-1.0); Potassium 3.8 mmol/L (3.5-5.1)
--- NOTE | 2022-04-02 13:29 | ER ---
Nurse's Notes [facility] Name: Jp Sun Age: 81 yrs Sex: Male : 1940 Arrival Date: 04/02/2022 Time: 10:05 Bed 20 Private MD: Diagnosis: Pain in throat;Steroid induced leukocytosis Presentation: 04/02 10:06 Chief complaint: EMS states: pt is from [facility], toned out for sore vg1 throat/throat pain that began this morning, pt was recently d/c from ED. Coronavirus screen: Vaccine status: Patient reports receiving the 2nd dose of the covid vaccine. Client denies travel out of the [place] in the last 14 days. Ebola Screen: Patient denies exposure to infectious person. Patient denies travel to an Ebola-affected area in the 21 days before illness onset. Initial Sepsis Screen: Does the patient meet any 2 criteria? RR > 20 per min. HR > 90 bpm. Yes Does the patient have a suspected source of infection? No. Patient's initial sepsis screen is negative. Risk Assessment: Do you want to hurt yourself or someone else? Patient reports no desire to harm self or others. Onset of symptoms was April 02, 2022. 10:06 Method Of Arrival: EMS: [facility] vg1 10:06 Acuity: FRANCISCO 3 vg1 10:06 Care prior to arrival: IV initiated. 20 GA, in the left antecubital area, Glucose vg1 check: 140. Triage Assessment: 10:09 General: Appears uncomfortable, Behavior is calm, cooperative. Pain: Complains of pain vg1 in throat Pain currently is 7 out of 10 on a pain scale. Noted to be grimacing. EENT: Oral mucosa is dry. Neuro: Level of Consciousness is awake, alert, obeys commands, Oriented to person, place, time, situation. Cardiovascular: Patient's skin is warm and dry. Respiratory: Airway is patent Respiratory effort is even, unlabored. GI: No signs and/or symptoms were reported involving the gastrointestinal system. PEG tube in place, Site clean. : No signs and/or symptoms were reported regarding the genitourinary system. Derm: Skin is pink, warm \T\ dry. Musculoskeletal: Circulation, motion, and sensation intact. Historical: - Allergies: 10:09 No Known Allergies; vg1 - Home Meds: 10:09 Aldactone Oral [Active]; Amiodarone Oral [Active]; azathioprine 50 mg Oral tab 2 tabs vg1 once daily [Active]; clopidogrel oral [Active]; Eliquis oral [Active]; Ferrous Sulfate Oral [Active]; furosemide 40 mg Oral tab once daily [Active]; Lipitor Oral [Active]; ProMod Oral [Active]; pantoprazole 40 mg Oral TbEC once daily [Active]; pyridostigmine bromide 60 mg Oral tab BID [Active]; Zinc Sulfate Oral [Active]; Zoloft Oral [Active]; - PMHx: 10:09 Difficulty swallowing; Hypertension; TIA; Atrial fibrillation; Sleep apnea; vg1 - Immunization history:: Client reports receiving the 2nd dose of the Covid vaccine. - Social history:: Smoking status: unknown. Screenin:17 Abuse screen: Denies threats or abuse. Nutritional screening: Difficulty vg1 chewing/swallowing? Yes. Tuberculosis screening: No symptoms or risk factors identified. Fall Risk No fall in past 12 months (0 pts). No secondary diagnosis (0 pts). IV access (20 points). Ambulatory Aid- None/Bed Rest/Nurse Assist (0 pts). Gait- Normal/Bed Rest/Wheelchair (0 pts) Mental Status- Oriented to own ability (0 pts). Total Burnham Fall Scale indicates No Risk (0-24 pts). Assessment: 10:10 EENT: Throat is reddened. vg1 10:17 Reassessment: SEE TRIAGE. Respiratory: Airway is patent Breath sounds are clear. vg1 11:20 Reassessment: Patient appears in no apparent distress at this time. No changes from vg1 previously documented assessment. Patient and/or family updated on plan of care and expected duration. Pain level reassessed. Patient is alert, oriented x 3, equal unlabored respirations, skin warm/dry/pink. 12:31 Reassessment: Patient appears in no apparent distress at this time. Patient and/or vg1 family updated on plan of care and expected duration. Pain level reassessed. Patient is alert, oriented x 3, equal unlabored respirations, skin warm/dry/pink. rated throat/neck pain 10. 13:44 Reassessment: pt up for d/c, pt requesting to speak with a social media designer before vg1 leaving ED. Vital Signs: 10:06 BP 113 / 71; Pulse 102; Resp 24; Temp 97.9(TE); Pulse Ox 100% on R/A; Weight 81.65 kg; vg1 Height 6 ft. 0 in. (182.88 cm); Pain 7/10; 11:30 BP 115 / 83; Pulse 108; Resp 22; Pulse Ox 100% on R/A; vg1 11:44 BP 111 / 81; Pulse 115; Resp 30; Pulse Ox 100% on R/A; vg1 12:00 BP 124 / 83; Pulse 110; Resp 30; Pulse Ox 100% on R/A; vg1 12:30 BP 119 / 79; Pulse 115; Resp 28; Pulse Ox 100% on R/A; vg1 13:00 BP 111 / 70; Pulse 105; Resp 27; Pulse Ox 100% on R/A; vg1 10:06 Body Mass Index 24.41 (81.65 kg, 182.88 cm) vg1 ED Course: 10:05 Patient arrived in ED. vg1 10:06 Cesar Sinclair DO is Attending Physician. ms3 10:09 Triage completed. vg1 10:09 Arm band placed on. vg1 10:17 Patient has correct armband on for positive identification. Placed in gown. Bed in low vg1 position. Call light in reach. Side rails up X2. Client placed on continuous cardiac and pulse oximetry monitoring. NIBP monitoring applied. 10:17 No provider procedures requiring assistance completed. Maintain EMS IV. Dressing vg1 intact. Good blood return noted. Site clean \T\ dry. Gauge \T\ site: 20. 10:19 Bessy Aranda, RN is Primary Nurse. vg1 11:25 EKG done, by ED staff. tp1 11:37 Chest Single View XRAY In Process Unspecified. EDMS 13:28 Terrell Mcallister DO is Referral Physician. ms3 14:41 IV discontinued, intact, bleeding controlled, No redness/swelling at site. Pressure vg1 dressing applied. Administered Medications: 10:29 Drug: GI Cocktail without - (Maalox Suspension 30 ml, Lidocaine Liquid 2 % 15 vg1 ml) Route: PO; 11:51 Follow up: Response: No adverse reaction; No change in condition vg1 10:31 Drug: NS 0.9% 1000 ml {Note: received VO to adminiser 500 mL bolus initally, then to vg1 slow rate.} Route: IV; Rate: 1000 ml; Site: left antecubital; 11:37 Drug: morphine 2 mg Route: IVP; Infused Over: 4 mins; Site: left antecubital; tp1 12:30 Follow up: Response: No adverse reaction; Pain is decreased vg1 Medication: 14:41 VIS not applicable for this client. vg1 Outcome: 13:28 Discharge ordered by . ms3 14:32 Discharged to custodial. Report called to Lexi BARGER vg1 14:32 Condition: good 14:32 Discharge instructions given to patient, family, custodial, Instructed on discharge instructions, follow up and referral plans. Demonstrated understanding of instructions, follow-up care. 14:42 Patient left the ED. vg1 Signatures: Dispatcher [employer] Bessy Davison RN RN vg1 Cesar Sinclair DO DO ms3 Luz Freitas, RN RN tp1
--- NOTE | 2022-04-02 13:30 | EDPHYS ---
Physician Documentation [facility] Name: Jp Sun Age: 81 yrs Sex: Male : 1940 Arrival Date: 04/02/2022 Time: 10:05 Bed 20 Private MD: ED Physician Cesar Sinclair HPI: 04/02 10:09 This 81 yrs old Male presents to ER via Unassigned with complaints of Sore Throat - ms3 Throat Pain. 10:09 The patient presents with sore throat. The patient describes throat pain as aching. ms3 Onset: The symptoms/episode began/occurred this morning. Severity of symptoms: At their worst the symptoms were mild, in the emergency department the symptoms are unchanged. Modifying factors: The symptoms are alleviated by nothing, the symptoms are aggravated by nothing. Associated signs and symptoms: Pertinent negatives chest pain, chills, fever, shortness of breath. The patient has been recently seen by a physician: The patient has been recently been admitted at [facility], was discharged yesterday. Historical: - Allergies: 10:09 No Known Allergies; vg1 - Home Meds: 10:09 Aldactone Oral [Active]; Amiodarone Oral [Active]; azathioprine 50 mg Oral tab 2 tabs vg1 once daily [Active]; clopidogrel oral [Active]; Eliquis oral [Active]; Ferrous Sulfate Oral [Active]; furosemide 40 mg Oral tab once daily [Active]; Lipitor Oral [Active]; ProMod Oral [Active]; pantoprazole 40 mg Oral TbEC once daily [Active]; pyridostigmine bromide 60 mg Oral tab BID [Active]; Zinc Sulfate Oral [Active]; Zoloft Oral [Active]; - PMHx: 10:09 Difficulty swallowing; Hypertension; TIA; Atrial fibrillation; Sleep apnea; vg1 - Immunization history:: Client reports receiving the 2nd dose of the Covid vaccine. - Social history:: Smoking status: unknown. ROS: 10:13 Constitutional: Negative for fever, and chills. ms3 10:13 Cardiovascular: Negative for chest pain, and palpitations. Respiratory: Negative for shortness of breath, cough, wheezing, and pleuritic chest pain, Abdomen/GI: Negative for abdominal pain, nausea, vomiting, diarrhea, and constipation, MS/Extremity: Negative for injury and deformity, Skin: Negative for injury, rash, and discoloration. 10:13 ENT: Positive for sore throat. 10:13 All other systems are negative. Exam: 10:13 Constitutional: This is a well developed, well nourished patient who is awake, alert, ms3 and in no acute distress. Head/Face: Normocephalic, atraumatic. Neck: Trachea midline, no cervical lymphadenopathy. Supple, full range of motion without nuchal rigidity, or vertebral point tenderness. No Meningismus. Chest/axilla: Normal chest wall appearance and motion. Nontender with no deformity. Cardiovascular: Regular rate and rhythm with a normal S1 and S2. No gallops, murmurs, or rubs. Normal PMI, no JVD. No pulse deficits. Respiratory: Lungs have equal breath sounds bilaterally, clear to auscultation and percussion. No rales, rhonchi or wheezes noted. No increased work of breathing, no retractions or nasal flaring. Abdomen/GI: Soft, non-tender, with normal bowel sounds. No distension or tympany. No guarding or rebound. No evidence of tenderness throughout. Skin: Warm, dry with normal turgor. Normal color with no rashes, no lesions, and no evidence of cellulitis. Psych: Awake, alert, with orientation to person, place and time. Behavior, mood, and affect are within normal limits. 10:13 ENT: Mouth: Oral mucosa: dry. 11:17 ECG was reviewed by the Attending Physician. ms3 Vital Signs: 10:06 BP 113 / 71; Pulse 102; Resp 24; Temp 97.9(TE); Pulse Ox 100% on R/A; Weight 81.65 kg; vg1 Height 6 ft. 0 in. (182.88 cm); Pain 7/10; 11:30 BP 115 / 83; Pulse 108; Resp 22; Pulse Ox 100% on R/A; vg1 11:44 BP 111 / 81; Pulse 115; Resp 30; Pulse Ox 100% on R/A; vg1 12:00 BP 124 / 83; Pulse 110; Resp 30; Pulse Ox 100% on R/A; vg1 12:30 BP 119 / 79; Pulse 115; Resp 28; Pulse Ox 100% on R/A; vg1 13:00 BP 111 / 70; Pulse 105; Resp 27; Pulse Ox 100% on R/A; vg1 10:06 Body Mass Index 24.41 (81.65 kg, 182.88 cm) vg1 MDM: 10:06 Patient medically screened. ms3 10:13 Differential diagnosis: upper respiratory infection, viral syndrome Dehydration. ms3 18:56 Data reviewed: vital signs, nurses notes, lab test result(s), EKG, radiologic studies, ms3 and as a result, I will discharge patient. Counseling: I had a detailed discussion with the patient and/or guardian regarding: the historical points, exam findings, and any diagnostic results supporting the discharge/admit diagnosis, lab results, radiology results, the need for outpatient follow up, to return to the emergency department if symptoms worsen or persist or if there are any questions or concerns that arise at home. ED course: Discussed labs, CXR, physical exam findings with patient. Patient to follow-up with Dr. BRIONES in 2 to 3 days. Patient understands and agrees with plan. All questions were answered. Return precautions discussed include worsening symptoms, or any other concerns. On reevaluation patient symptoms improved, patient is alert and oriented x4, no apparent distress, nontoxic, ambulatory in emergency department. Leukocytosis likely 2/2 steroids administered during recent observation. . 04/02 10:07 Order name: CBC with Diff; Complete Time: 11:07 ms3 04/02 10:07 Order name: BMP; Complete Time: 11:07 ms3 04/02 11:10 Order name: Blood Culture Adult (2) ms3 04/02 11:10 Order name: CMP; Complete Time: 12:20 ms3 04/02 11:10 Order name: Lactate; Complete Time: 12:20 ms3 04/02 11:10 Order name: Protime (+inr); Complete Time: 12:20 ms3 04/02 11:10 Order name: Ptt, Activated; Complete Time: 12:20 ms3 04/02 11:10 Order name: Chest Single View XRAY; Complete Time: 12:04 ms3 04/02 11:10 Order name: Strep; Complete Time: 12:46 ms3 04/02 12:31 Order name: Throat Culture EDMS 04/02 11:10 Order name: Accucheck; Complete Time: 11:51 ms3 04/02 11:10 Order name: Cardiac monitoring; Complete Time: 11: ms3 04/02 11:10 Order name: EKG - Nurse/Tech; Complete Time: 11:25 ms3 04/02 11:10 Order name: IV Saline Lock - Large Bore; Complete Time: 11: ms3 04/02 11:10 Order name: Labs collected and sent; Complete Time: 11: ms3 04/02 11:10 Order name: O2 Per Protocol; Complete Time: : ms3 04/02 11:10 Order name: O2 Sat Monitoring; Complete Time: : ms3 EC:30 Rate is 111 beats/min. Rhythm is irregularly irregular. QRS [place] is Normal. Clinical ms3 impression: NSR w/ Non-specific ST/T Changes and with bifasicular block. Interpreted by me. Reviewed by me. Administered Medications: 10:29 Drug: GI Cocktail without - (Maalox Suspension 30 ml, Lidocaine Liquid 2 % 15 vg1 ml) Route: PO; 11:51 Follow up: Response: No adverse reaction; No change in condition vg1 10:31 Drug: NS 0.9% 1000 ml {Note: received VO to adminiser 500 mL bolus initally, then to vg1 slow rate.} Route: IV; Rate: 1000 ml; Site: left antecubital; 11:37 Drug: morphine 2 mg Route: IVP; Infused Over: 4 mins; Site: left antecubital; tp1 12:30 Follow up: Response: No adverse reaction; Pain is decreased vg1 Disposition Summary: 04/02/22 13:28 Discharge Ordered Location: Home ms3 Condition: Stable ms3 Diagnosis - Pain in throat ms3 - Steroid induced leukocytosis ms3 Followup: ms3 - With: Terrell Mcallister DO - When: 2 - 3 days - Reason: Recheck today's complaints Discharge Instructions: - Discharge Summary Sheet ms3 - Sore Throat ms3 Forms: - Medication Reconciliation Form ms3 - Thank You Letter ms3 - Antibiotic Education ms3 - Prescription Opioid Use ms3 Signatures: Dispatcher [employer] Bessy Davison, RN RN vg1 Cesar Sinclair DO DO ms3 Luz Freitas RN RN tp1 Corrections: (The following items were deleted from the chart) 18:59 12:30 ECG was reviewed by the Attending Physician. ms3 ms3 18:59 12:30 Rate is 92 beats/min. Rhythm is regular. QRS [place] is Normal. MD interval is ms3 normal. QRS interval is normal. Clinical impression: Normal ECG. Interpreted by me. Reviewed by me. ms3
[2022-04-02 14:53] VITALS: TEMP 97.9; O2SAT 100
[2022-04-02 15:05] VITALS: BP 111/70
--- NOTE | 2022-04-03 08:15 | EKG ---
Test Date: 2022-04-02 Test Time: 11:17:49 Spindle Tester: MARGA MEASUREMENT RESULTS: Intervals: Rate: 111 ME: QRSD: 140 QT: 374 QTc: 508 [place]: P: ME: QRS: -57 T: 64 INTERPRETIVE STATEMENTS: Atrial fibrillation with rapid ventricular response Right bundle branch block Left anterior fascicular block Bifascicular block Abnormal ECG Compared to ECG 04/01/2022 02:54:52 Sinus rhythm no longer present Atrial premature complex(es) no longer present Left ventricular hypertrophy no longer present Bifascicular block still present Electronically Signed On 04-03-22 08:11:21 CDT by Willi Quinn
== END 2022-04-02 14:42 | disposition home or self-care (01) ==
LOC: ER 10:01
DX: R07.0 Pain in throat (principal); D72.828 Other elevated white blood cell count; I10 Essential (primary) hypertension; I48.91 Unspecified atrial fibrillation; Z79.01 Long term (current) use of anticoagulants; Z86.73 Personal history of transient ischemic attack (TIA), and cerebral infarction without residual deficits
CPT/HCPCS: 93005; 87040 ×2; 87070; 85025; 80048; 36415; 85610; 87081; 83605; 85730; 80053; 71045; 96374; 99284; J2270; J7030

== ENCOUNTER 2022-05-09 15:25 | Inpatient (IN) | payer OTHER ==
--- OUTSIDE RECORDS SUMMARY | 2022-05-09 15:37 | XMS REPORT | Continuity of Care Document ---
:1940 Author Organization [facility] t Address [address] [place] [address] Care Team Providers Name Role Phone Erickson Coleman Primary Care Physician Yaa Mcclain Attending Clinician Unavailable Erickson Marin Attending Clinician Unavailable ML HAYDEN Attending Clinician Unavailable MADELYN LEMON Attending Clinician Unavailable Hany Yanes Attending Clinician Unavailable EMELINA Attending Clinician Unavailable DIMITRI GARCÍA NATASHA Attending Clinician Unavailable Doctor Unassigned, [place] Attending Clinician Unavailable Sayda Pak RN Attending Clinician Unavailable MIKEY MONGE Attending Clinician Unavailable MIKEY MONGE Attending Clinician Unavailable Kraig Eden MD Attending Clinician Moe Henning MD Attending Clinician John Castaneda DO Attending Clinician CORAZON KESSLER Attending Clinician Unavailable Ml Hayden MD Attending Clinician Lab, Adc Fam Pob I Attending Clinician Unavailable Vinny Waggoner Admitting Clinician Unavailable ML HAYDEN Admitting Clinician Unavailable MADELYN LEMON Admitting Clinician Unavailable Physician, No Primary or Family Admitting Clinician Unavaila ble ERICKSON_R Admitting Clinician Unavailable DIMITRI GARCÍA NATASHA Admitting Clinician Unavailable MOE HENNING Admitting Clinician Unavailable Payers Payer Name Policy Type Policy Number Effective Date Expiration Date S carey MEDICARE PART A \\T\\ [id number] 2007 B 00:00:00 [employer] COMM[employer]CIAL [id number] 2013 OUT OF NETWORK 00:00:00 MEDICARE A B [id number] 2007 00:00:00 [employer] INDEMNITY NON [id number] 2013 CONTR 00:00:00 MEDICARE B-[place]: [id number] 2007 [place] SOLUTIONS 00:00:00 [employer] (INDEMNITY) [id number] 2000 00:00:00 MCR MCR [id number] Problems Condition Condition Condition Status Onset Resolution Last Treating Co mments Source Name Details Category Date Date Treatment Clinician Date Acute Acute Disease Active [facility] [place] [facility] respirator respirator 6-25 it y of y [place] Medical hypoxia hypoxia Branch Ischemic Ischemic Disease [facility]: [place] [address] Center Allergies, Adverse Reactions, Alerts Allergy Allergy Status Severity Reaction(s) Onset Inactive Treating Comm ents Source Name Type Date Date Clinician No Known DA Active U [facility] 6[facility]15 [facility] 00:[facility] [place] [facility] No Known DA Active U 2019-0 [facility] Allergie 6-05 [place] 00:00: d 00 Medical [place] No Known DA Active U 2020-0 [facility]ie 6-05 [place] 00:[place]: [address] NO KNOWN Allergy Active [facility] NO KNOWN Drug Active Univers ALLERGIE Class ity of S [facility] Social History Social Habit Start Date Stop Date Quantity Comments Source Exposure to 2022-02-02 2022-02-12 Not sure [facility] SARS-CoV-2 00:00:00 20:35:00 [facility] (event) [place] Tobacco Comment 2022-02-10 2022-02-10 Per Universit y of 00:00:00 00:00:00 [facility] Tobacco use and 2022-02-10 2022-02-10 Smokeless tobacco Un iversity of exposure 00:00:00 00:00:00 non-user [facility] Alcohol intake 2022-02-10 2022-02-10 Lifetime University of 00:00:00 00:00:00 non-drinker [facility] (finding) [place] Sex Assigned At [birth year] ZARIA Song 00:00:00 00:00:00 Medical Center Smoking Status Start Date Stop Date Source Never smoked tobacco [facility] Medications Ordered Filled Start Stop Current Ordering [...] 25mg Take 25 mg Univers 25 mg 7-28 02-13 by mouth. ity of tablet 10:47: 00:00 [place] 49 :00 Medical Branch losartan 25 2021- No 25mg Take 25 mg Univers mg tablet 02-28-13 by mouth ity o f 10:47: 00:00 [...] ity of capsule 10:47: 00:00 mouth 2 [place] 49 :00 (two) Medical times Branch daily. predniSONE 2-0 2021- No 60mg Take 60 mg Univers 20 mg -28 02-13 by mouth ity of tablet 10:47: 00:00 every 2 [place] 49 :00 (two) Medical days. Branch insulin 2021-2021- No 5U inject 5 Unive rs glargine 02-28- Units ity of 100 unit/mL 10:47: 00:00 under the [place] injection 49 :00 skin at Medical bedtime. Branch fidaxomicin 2022-0 Yes 200mg Take 1 Uni vers 200 mg 7-13 tablet ity of tablet 00:00: through [place] 00 enteral Medical tube in Branch the morning and 1 tablet in the evening. carvediloL 2022-0 Yes 25mg Take 1 Unive rs 25 mg 7-13 tablet by ity of tablet 00:00: mouth in [place] 00 the Medical morning Branch and 1 tablet in the evening. Take with meals. furosemide 2022-0 Yes 40mg Take 1 Unive rs 40 mg 7-13 tablet by ity of tablet 00:00: mouth in [place] 00 the Medical morning. Branch fidaxomicin 2022-0 Yes 200mg Take 1 Uni vers 200 mg 7-13 tablet ity of tablet 00:00: through [place] 00 enteral Medical tube in Branch the morning and 1 tablet in the evening. carvediloL 2022-0 Yes 25mg Take 1 Unive rs 25 mg 7-13 tablet by ity of tablet 00:00: mouth in [place] 00 the Medical morning Branch and 1 tablet in the evening. Take with meals. furosemide 2022-0 Yes 40mg Take 1 Unive rs 40 mg 7-13 tablet by ity of tablet 00:00: mouth in [place] 00 the Medical morning. Branch fidaxomicin 2022-0 Yes 200mg Take 1 Uni vers 200 mg 7-13 tablet ity of tablet 00:00: through [place] 00 enteral Medical tube in Branch the morning and 1 tablet in the evening. carvediloL 2022-0 Yes 25mg Take 1 Unive rs 25 mg 7-13 tablet by ity of tablet 00:00: mouth in [place] 00 the Medical morning Branch and 1 tablet in the evening. Take with meals. furosemide 2022-0 Yes 40mg Take 1 Unive rs 40 mg 02-28 tablet by ity of tablet 00:00: mouth in [place] 00 the Medical morning. Branch pantoprazol 2021- [...] 325mg 325 mg, Unive rs sulfate 300 02-23 Oral, BID, i ty of mg (60 [...] mg 00 :07 First dose Medical on Sat02/21/22 at 0900, Until Discontinu ed, Routine ferrous No 325mg 325 mg, Unive rs sulfate 02-21 Oral, BID, ity o f tablet 325 01:00: 12:48 First dose [place] mg 00 :03 on Sat02/20/22 at Branch 2000, Until Discontinu ed, Routine D5W IV No 1000mL at 100 Univer s infusion [...] Discontinu ed QUEtiapine Yes 25mg 25 [facility], [facility] 04 Oral, QHS, ity of tablet 25 02:00: First dose [place] mg 00 (after Medical last Branch modificati on) on [place] 02/18/22 at 2100, Until Discontinu ed, Routine KCL 20 No 40meq 40 mEq, Univer s mEq/15 mL 02-1803 Enteral, ity o f solution 40 14:00: 13:30 ONCE, 1 [place] mEq 00 :00 dose, On [facility] 02/18/22 Branch at 0900, Routine piperacilli 2021- No 3.375g 3.375 g, [facility] [place] [facility] n-tazobacta 02-17 0705 IV ity of m (ZOSYN) 19:00: 15:30 Piggyback, [place] 3.375 g in 00 :00 Q8H ABX, 9 Med ical NaCl 0.9% doses, Branch (NS) 50 mL First dose MINI-BAG (after last reorder) on Sat02/17/22 at 1400, Last dose on Sat02/20/22 at [...] [place] mEq 00 :00 dose, On Medical Sat02/17/22 Branch at 0845, Routine D5W IV No 1000mL at 70 Univers infusion 02-16 07-05 mL/hr, IV ity o f 1,000 mL 18:00: 21:07 Infusion, [place] as 00 :19 CONTINUOUS Medical , Starting Branch on Sat02/16/22 at 1300, Until Sat02/20/22 at 1607, Routine piperacilli No 3.375g 3.375 g, Univers n-tazobacta 02-16 [...] No 25mg 25 mg, Univ ers (SEROQUEL) 6 07-03 Oral, BID, it y of tablet 25 18:30: 15:58 First dose [place] mg 00 :12 on [facility] 02/15/22 at Branch 1330, Until Discontinu ed, Routine KCL 2021- No 40meq 40 mEq, IV Unive rs (POTASSIUM 02-15 Piggyback, it y of CHLORIDE) 15:45: 19:48 ONCE, 1 [place] 40 mEq in 00 :00 dose, On Medica l NaCl 0.9% [facility] Branch (NS) 02/15/22 at piggyback 1045, 250 mL levalbutero Yes .63mg 0.63 mg, U nivers l (XOPENEX) 02-14 Inhalation it y of nebulizer 17:00: , Q6H, [place] solution 00 First dose Medic al 0.63 mg (after Branch last modificati on) on Sat02/14/22 at 1200, Until Discontinu ed, Routine
Approved by: [facility] PROVIDER furosemide No 20mg 20 mg, Univ ers (LASIX) 10 02-14 Enteral, ity of mg/mL 15:00: 13:06 BID, First [place] solution 20 00 :42 dose on Medic al mg Sat Branch 02/14/22 at 1000, Until Discontinu ed, Routine aspirin 2021- No 81mg 81 mg, Univers chewable 02-14 07 Oral, ity of tablet 81 14:00: 03:08 DAILY, [place] mg 00 :45 First dose Medical on Sat Branch 02/14/22 at 0900, Until Discontinu ed, Routine KCL 20 2021- [...] 2.5mg 2.5 mg, Univ ers (ELIQUIS) 02-14 07-05 Oral, BID, ity of tablet 2.5 01:00: 03:08 First dose [place] mg 00 :45 on Sat02/13/22 at Branch 2000, Until Discontinu ed, Routine
[...] First dose Medic al 0.63 mg on Sat02/13/22 at 1200, Until Discontinu ed, Routine
Approved by: [facility] PROVIDER famotidine No 20mg 20 mg, [facility] ers (PEPCID) 40 02-13 0705 Enteral, ity [...] [place]as mEq 00 :00 dose, On Medical Sat [place] 02/13/22 at 0800, Routine NaCl 0.9% Yes 10mL 10 mL, Univer s (NS) 02-13 Slow IV ity of injection 11:45: Push, PRN, [place] 10 mL 15 Starting Medical on [place] 02/13/22 at 0645, Until Discontinu ed, Routine, line maintenanc e lidocaine Yes 5mL 5 mL, Univers 1% (PF) 02-13 Subcutaneo ity of (XYLOCAINE) 11:45: us, PRN, [place] injection 5 15 Starting Medi pierre mL on [facility] 02/13/22 at 0645, Until Discontinu ed, Routine, Local anesthesia atorvastati Yes 10mg 10 mg, Univ ers n (LIPITOR) 02-13 Oral, QHS, it y of tablet 10 02:00: First dose [place] mg 00 on [facility] 02/12/22 at Branch 2100, Until Discontinu ed, Routine amiodarone Yes 200mg 200 mg, Uni vers (PACERONE) 02-13 Oral, BID, ity of tablet 200 01:00: First dose [place] mg 00 on [facility] 02/12/22 at Branch 2000, Until Discontinu ed, Routine carvediloL Yes 25mg 25 mg, Unive rs (COREG) 02-12 Oral, BID ity of tablet 25 22:00: MEALS, [place] mg 00 First dose Medical on [facility] 02/12/22 at 1700, Until Discontinu ed, Routine enoxaparin 2021- No 1mg/kg 80 mg Uni vers (LOVENOX) 02-12 (rounded ity o f injection 19:00: 16:56 [place] 84.5 [place] 80 mg 00 :17 mg = 1 Medical mg/kg Branch ?84.5 kg), Subcutaneo us, Q24H, First dose on [facility] 02/12/22 at 1400, Until Discontinu ed, Routine furosemide 2021- No 20mg 20 mg, Univ ers (LASIX) 02-11 Slow IV ity of injection 11:00: 14:48 Push, Q8H, [place] 20 mg 00 :59 First dose Medical on [facility] 02/11/22 at 0600, Until Discontinu ed, Routine clopidogreL No 75mg 75 mg, Uni vers (PLAVIX) 75 02-11 0705 Enteral, ity of mg tablet 02:00: 03:08 DAILY, [place] 75 mg 00 :45 First dose Medical on Sat Branch 02/10/22 at 2100, Until Discontinu ed, Routine sulfur 2021- No [id number] 5mL 5 mL, Unive rs hexafluorid 02-10 Intravenou i ty of e microsphr 14:30: 14:30 s, ONCE, 1 [place] (LUMASON) 00 :00 dose, On Medica l injection 5 Sat Branch mL 02/10/22 at 0930, Routine
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 approving Restricted medication : GENNY MCALLISTER aspirin No 81mg 81 mg, Univers chewable 02-10 Enteral, ity of tablet 81 14:00: 01:46 DAILY, [place] mg 00 :38 First dose Medical on Sat Branch 02/10/22 at 0900, Until Discontinu ed, Routine chlorhexidi Yes 15mL 15 mL, Univ ers ne 02-10 Oral ity of (PERIDEX) 13:00: ([place] 0.12 % 00 Spit Out), Medical mouthwash BID, First Bran ch 15 mL dose on 02/10/22 at 0800, Until Discontinu ed, Routine famotidine No 20mg 20 mg, Univ ers (PEPCID) 40 02-10 Enteral, ity of mg/5 mL (8 13:00: 15:54 BID, First [place] mg/mL) 00 :43 dose on Medical suspension Sat Branch 20 mg 02/10/22 at 0800, Until Discontinu ed, Routine
Indicatio n for use: Mechanical Ventilatio n > 48 hours furosemide 2021- No 40mg 40 mg, Univ ers (LASIX) 02-10 Slow IV ity of injection 13:00: 01:47 Push, [place] 40 mg 00 :25 Q12H, Medical First dose Branch on 02/10/22 at 0800, Until Discontinu ed, Routine piperacilli 2021- No 3.375g 3.375 g, [facility] [place] [facility] n-tazobacta 02-10 IV ity of m (ZOSYN) [...] by ity of tablet 07:33: 00:00 mouth. [place] 37 :00 [facility] Branch gabapentin 2021- No 400mg Take 400 U nivers 400 mg 02-10 06-25 mg by ity of capsule 07:32: 00:00 mouth. [place] 16 :00 [facility] Branch fentaNYL PF 2021- No 25ug/h 25-200 U [...] s vasopresso r at a time.
midazolam 0 2021- No 2mg 2 mg, IV Uni vers (VERSED) 02-10 Push, ity of injection 2 03:00: 01:30 ONCE, 1 [place] mg 00 :00 dose, On [facility] Sat Branch 02/09/22 at 2200, STAT midazolam 2021- No 2mg 2 mg, IV Uni vers (VERSED) 02-10 Push, ity of injection 2 02:15: 01:30 ONCE, 1 [place] mg 00 :00 dose, On [facility] Sat Branch 02/09/22 at 211, STAT vecuronium 2021- No 8mg 8 mg, IV Un teri (NORCURON) 02-10 Push, ity of injection 8 02:15: 01:31 ONCE, 1 [place] mg 00 :00 dose, On [facility] 02/09/22 at 211, STAT dexMEDEtomi 2021- No .2ug/kg 0.2-1.5 Univers dine 200 02-10 06-27 /h mcg/kg/hr ity o f mcg in 0.9 02:03: 17:49 ?93.9 kg [place] % NaCl 50 36 :05 (4.695-35. Medi pierre mL 2124 Branch (PRECEDEX) mL/hr, RTU IV rounded to infusion 4.7-35.21 mL/hr), IV Infusion, TITRATE, Sedation-R ASS score (0 to -1), Starting on Sat02/09/22 at 2103
In itiate infusion at 0.2 mcg/kg/hr and [...] dose, On Medical Fri Branch 02/09/22 at 1999, AMA levoFLOXaci 2021- No 750mg 750 mg, IV Univers n in D5W 02-10 Piggyback, ity of (LEVAQUIN) 00:45: 02:00 ONCE, 1 [place] 750 mg/150 00 :00 dose, On Medic al mL Fri Branch Piggyback 02/09/22 at 750 mg 1944, Administer over 90 Minutes, 150 mL
R [...] No 4mg 4 mg, Slow Univers (ZOFRAN 02-10-24 IV Push, ity of (PF)) 00:30: 23:18 [...] NS Parameters in Admin. Instr., Starting on Sat02/09/22 at 1859
CA UTION - If LMWH [...] INITIAL BOLUS OR INITIAL INFUSION RATE.
metoprolol 0 2021- No 50mg Take 50 mg Univers succinate 02-06 by mouth 2 ity of XL 50 mg 24 00:00: 00:00 (two) [place] hr tablet 00 :00 times Medical daily. Branch SERTraline 2020-08 Yes 125mg Take 125 Un teri 100 mg 2-29 mg by ity of tablet 16:16: mouth. [address] SERTraline 2020-08 Yes 125mg Take 125 Un teri 100 mg 2-29 mg by ity of tablet 16:16: mouth. [address] SERTraline 2020-08 Yes 125mg Take 125 Un teri 100 mg 2-29 mg by ity of tablet 16:16: mouth. [address] SERTraline 2020-08 Yes 125mg Take 125 Un teri 100 mg 2-29 mg by ity of tablet 16:16: mouth. [address] carvediloL 2020-08 Yes 25mg Take 25 mg U nivers 25 mg 2-29 by mouth. ity of tablet 16:16: [address] gabapentin 2020-08 Yes 400mg Take 400 Un teri 400 mg 2-29 mg by ity of capsule 16:16: mouth. [address] carvediloL 2020-08 Yes 25mg Take 25 mg U nivers 25 mg 2-29 by mouth. ity of tablet 16:16: [address] gabapentin 2020-08 Yes 400mg Take 400 Un teri 400 mg 2-29 mg by ity of capsule 16:16: mouth. [address] carvediloL 2020-08 Yes 25mg Take 25 mg U nivers 25 mg 2-29 by mouth. ity of tablet 16:16: [address] gabapentin 2020-08 Yes 400mg Take 400 Un teri 400 mg 2-29 mg by ity of capsule 16:16: mouth. [address] carvediloL 2020-08 Yes 25mg Take 25 mg U nivers 25 mg 2-29 by mouth. ity of tablet 16:16: [address] gabapentin 2020-08 Yes 400mg Take 400 Un teri 400 mg 2-29 mg by ity of capsule 16:16: mouth. [address] pantoprazol 2020-08 Yes Univer s e 40 mg EC 2-14 ity of tablet 00:00: [address] pravastatin 2020-08 Yes Univer s 40 mg 2-14 ity of tablet 00:00: [address] pantoprazol 2020-08 Yes Univer s e 40 mg EC 2-14 ity of tablet 00:00: [address] pantoprazol 2020-08 Yes Univer s e 40 mg EC 2-14 ity of tablet 00:00: [address] pantoprazol 2020-08 Yes Univer s e 40 mg EC 2-14 ity of tablet 00:00: [address] pantoprazol 2020-08 Yes Univer s e 40 mg EC 2-14 ity of tablet 00:00: [address] pravastatin 2020-08 Yes Univer s 40 mg 2-14 ity of tablet 00:00: [address] pantoprazol 2020-08 Yes Univer s e 40 mg EC 2-14 ity of tablet 00:00: [address] pravastatin 2020-08 Yes Univer s 40 mg 2-14 ity of tablet 00:00: [address] pantoprazol 2020-08 Yes Univer s e 40 mg EC 2-14 ity of tablet 00:00: [address] pravastatin 2020-08 Yes Univer s 40 mg 2-14 ity of tablet 00:00: [address] pravastatin 2020-082- No Unive rs 40 mg 2-14 07-13 ity of tablet 00:00: 00:00 [place] 00 :00 [facility] traMADoL 50 2020-08 Yes Univer s mg tablet 2-12 ity of 00:00: [address] traMADoL 50 2020-08 Yes Univer s mg tablet 2-12 ity of 00:00: [address] traMADoL 50 2020-08 Yes Univer s mg tablet 2-12 ity of 00:00: [place] 00 Medical Branch traMADoL 50 2020-08 Yes Univer s mg tablet 2-12 ity of 00:00: [place] 00 Medical Branch traMADoL 50 2020-08- No Unive rs mg tablet 12 - ity of 00:00: 00:00 [place] 00 :00 [...] s mg tablet 1-18 ity of 00:00: [place] Medical Branch losartan 50 2020-08 Yes Univer s mg tablet 1-18 ity of 00:00: [place] Medical Branch losartan 50 2020-08- No Unive rs mg tablet 1-18 06-25 ity of 00:00: 00:00 [place] 00 :00 Medical Branch clopidogreL 2020- Yes Univer s 75 mg 0-21 ity of tablet 00:00: [place] Medical Branch clopidogreL 2020- Yes Univer s 75 mg 0-21 ity of tablet 00:00: [place] [address] Medical Branch amLODIPine 2020- Yes Univers 5 mg tablet 0-21 ity of 00:00: [place] Medical Branch clopidogreL 2020- Yes Univer s 75 mg 0-21 ity of tablet 00:00: [place] [address] Medical Branch clopidogreL 2020- Yes Univer s 75 mg 0-21 ity of tablet 00:00: [place] [address] Medical Branch clopidogreL 2020- Yes Univer s 75 mg 0-21 ity of tablet 00:00: [place] 00 Medical Branch amLODIPine 2020- Yes Univers 5 mg tablet 0-21 ity of 00:00: [place] [address] Medical Branch clopidogreL 2020- Yes Univer s 75 mg 0-21 ity of tablet 00:00: [place] 00 Medical Branch amLODIPine 2020- Yes Univers 5 mg tablet 0-21 ity of 00:00: [place] [address] Medical Branch clopidogreL 2020- Yes Univer s 75 mg 0-21 ity of tablet 00:00: [place] Medical Branch amLODIPine 2020- Yes Univers 5 mg tablet 0-21 ity of 00:00: [place] 00 Medical Branch amLODIPine 2020-2021- No Univer s 5 mg tablet 0-21 07-13 ity of 00:00: 00:00 [place] 00 :00 Medical Branch aspirin 81 2019-0 2020- No 81mg QD Take [address] MG chewable 8-20 08-20 tablet (81 L ukes tablet 00:00: 23:59 mg total) Medic al 00 :00 by mouth Center daily. amLODIPine Yes 10mg QD Take [address] (NORVASC) 5 8-19 by mouth Luke s MG tablet 15:01: daily. Medica [address] gabapentin 2020-0 Yes 400mg QD Take [address] (NEURONTIN) 8-19 mg by [facility] 400 MG 15:01: mouth Medical capsule 48 daily. [place] carvediloL 2020-0 Yes 25mg QD Take [address] (COREG) 25 8-19 by mouth [facility] MG tablet 15:01: [facility] [place] buPROPion 2020-0 Yes 300mg QD Take [address] (WELLBUTRIN 8-19 mg by [facility] XL) 300 MG 15:01: mouth Medica l 24 hr 48 daily. [place] tablet sertraline 2020-0 Yes 125mg QD Take [address] (ZOLOFT) 8-19 mg by [facility] 100 MG 15:01: mouth Medical tablet 48 daily. [place] pantoprazol 2020-0 Yes 40mg QD Take [address] e 8-19 by mouth [facility]ukes (PROTONIX) 15:01: daily. Medic al 40 MG 48 [place] tablet multivitami 2020-0 Yes 1{tbl} QD Take [address] n per 8-19 tablet by [facility] tablet 15:01: mouth Medical 48 daily. [place] clopidogreL 2020-0 Yes 75mg QD Take [address] (PLAVIX) 75 8-19 by mouth Luke s mg tablet 15:01: [facility]. [facility] [address] amLODIPine 2020-0 Yes 10mg QD Take [address] (NORVASC) 5 8-19 by mouth Luke s MG tablet 15:01: [facility]. [facility] [address] gabapentin 2020-0 Yes 400mg QD Take [address] (NEURONTIN) 8-19 mg by [facility] 400 MG 15:01: mouth Medical capsule 48 daily. [place] carvediloL 2020-0 Yes 25mg QD Take [address] (COREG) 25 8-19 by mouth [facility]ukes MG tablet 15:01: daily. Medica l 48 [place] buPROPion 2020-0 Yes 300mg QD Take [address] (WELLBUTRIN 8-19 mg by [facility] XL) 300 MG 15:01: mouth Medica l 24 hr 48 daily. [place] tablet sertraline 2020-0 Yes 125mg QD Take [address] (ZOLOFT) 8-19 mg by [facility] 100 MG 15:01: mouth Medical tablet 48 daily. [place] pantoprazol 2020-0 Yes 40mg QD Take [address] e 8-19 by mouth [facility]ukes (PROTONIX) 15:01: daily. Medic al 40 MG 48 Center tablet multivitami Yes 1{tbl} QD Take [address] n per 8 tablet by [facility] tablet 15:01: mouth Medical 48 daily. Center clopidogreL Yes 75mg QD Take [address] (PLAVIX) 75 04-06 by mouth Luke s mg tablet 15:01: daily. Medica l 48 Center atorvastati 2020- No 80mg QD Take [address] n (LIPITOR) 04-06- tablet (80 L ukes 80 MG 00:00: 23:59 mg total) Medica l tablet 00 :00 by mouth Center nightly. Ditropan Ditropan Yes [place] 1/2 tablet Common 04-23 [facility] 00:00: - [facility] Testosteron Testosteron Yes [place] 1 ml Common e Cypionate e Cypionate - [facility] 00:00: - [facility] Wellbutrin Wellbutrin Yes [place] 1 tablet Common XL XL [place] [facility] Hydrochloro Hydrochloro Yes [place] 1 tablet Common thiazide thiazide [place] in [facility] S pirit [facility] Vitamin Vitamin Yes [place] not Common [id number] [place] defined [facility] Acid Acid [facility] Zoloft Zoloft Yes [place] 1 tablet Common [place] [facility] Pantoprazol Pantoprazol Yes [place] 1 tablet Common e Sodium e Sodium [place] Spi rit [facility] Nuvigil Nuvigil Yes [place] 1 tablet Comm on [place] [facility] Omeprazole Omeprazole Yes [place] 1 capsule Common [place] [facility] Coreg Coreg Yes [place] not Common [place] defined [facility] Isosorbide Isosorbide Yes [place] 1 tablet Common Mononitrate Mononitrate [place] [facility] ER ER [facility] Vitamin D3 Vitamin D3 Yes [place] 1 capsule Common [place] [facility] Potassium Potassium Yes [place] 1 tablet Common Chloride Chloride [place] with food Spirit [facility] ER [facility] Gabapentin Gabapentin Yes [place] 1 capsule Common [place] [facility] Zocor Zocor Yes [place] 1 tablet Common [place] [facility] evening [facility] Lotrisone Lotrisone Yes [place] APPLY Com mon [place] TOPICALLY [facility] DAY [facility] AT BED [facility] Amlodipine Amlodipine Yes [place] 1 tablet Common Besylate Besylate [place] Spi rit [facility] Vital Signs Vital Name Observation Time Observation Value Comments Source HEIGHT 2020-04-04 00:00:00 182.9 cm WEIGHT 2020-04-04 00:00:00 97.9 kg Systolic blood 2022-02-28 17:12:00 130 mm[Hg] Univer sity [facility] [place] Diastolic blood 2022-02-28 17:12:00 76 mm[Hg] [facility] Heart rate 2022-02-28 17:12:00 83 /min [facility] [place] [facility] Body temperature 2022-02-28 17:12:00 36.61 [facility] Respiratory rate 2022-02-28 17:12:00 18 /min [facility] Oxygen saturation in 2022-02-28 17:12:00 89 /min [facility] Arterial blood by [facility] Pulse oximetry Branch Body weight 2022-02-27 08:27:00 82.963 kg Universi ty [facility] BMI 2022-02-27 08:27:00 27.00 kg/m2 Universi ty [facility] Body height 2022-02-10 08:00:00 175.3 cm Universi ty [facility] Body height 2021-08-16 22:23:00 175.3 cm Universi ty of [facility] Body weight 2021-08-16 22:23:00 93.895 kg Universi ty [facility] BMI 2021-08-16 22:23:00 30.57 kg/m2 Universi ty [facility] HEIGHT 2020-04-04 00:00:00 182.9 cm WEIGHT 2020-04-04 00:00:00 97.9 kg Procedures Procedure Date / Time Performing Clinician Source Performed EXTERNAL PROVIDER RECORDS 2022-03-09 05:01:00 Doctor Unassigned, [facility] [place] [facility] COVID-19 (ID NOW RAPID 2022-02-28 17:05:00 Mikey Monge [facility] TESTING) Medical Branch XR CHEST 1 VW 2022-02-28 16:13:13 Mcallister, [facility] o f [facility] BASIC METABOLIC PANEL 2022-02-28 10:37:00 Babar Mcallister [facility] (NA, K, CL, CO2, GLUCOSE, Medica l Branch BUN, CREATININE, CA) CBC WITHOUT DIFF 2022-02-28 10:37:00 [facility] 2022-02-28 05:15:05 Moe Henning [facility] US DUPLEX VENOUS ARM 2022-02-26 13:32:00 John Castaneda [facility] RIGHT - BY VASCULAR LAB [facility] CBC WITHOUT DIFF 2022-02-26 08:36:00 John Castaneda [facility] CBC WITHOUT DIFF 2022-02-25 22:15:00 John Castaneda [facility] POCT GLUCOSE (AUTOMATED) 2022-02-25 11:21:00 Moe Henning [facility] CBC WITHOUT DIFF 2022-02-25 09:40:00 John Castaneda [facility] TRANSFUSE PACKED RBC 2022-02-25 05:54:00 [facility] PREPARE PACKED RBC 2022-02-25 05:40:24 John Castaneda [facility] POCT GLUCOSE (AUTOMATED) 2022-02-25 04:44:00 Moe Henning [facility] CBC WITHOUT DIFF 2022-02-25 01:06:00 John Castaneda [facility] PANEL IDENTIFICATION 2022-02-24 20:38:00 Moe Henning [facility] XR KUB 2022-02-24 20:24:00 Shannon Khoury [facility] CBC WITHOUT DIFF 2022-02-24 18:47:[address] [facility] HB ABO GROUPING 2022-02-24 18:47:00 Leonel [facility] CBC WITHOUT DIFF 2022-02-24 08:07:[address] [facility] COMP. METABOLIC PANEL 2022-02-24 08:06:00 John Castaneda [facility] ([id number]) [facility] COMP. METABOLIC PANEL 2022-02-23 09:01:00 Leonel [facility] ([id number]) [facility] CBC WITHOUT DIFF 2022-02-23 09:01:[address] [facility] PREPARE PACKED RBC 2022-02-23 05:15:06 Moe Henning [facility] MAGNESIUM 2022-02-22 08:36:00 Leonel [facility] COMP. METABOLIC PANEL 2022-02-22 08:36:00 Leonel [facility] ([id number]) [facility] CBC WITHOUT DIFF 2022-02-22 08:36:[address] [facility] TRANSFUSE PACKED RBC 2022-02-21 21:00:00 John Castaneda [facility] OVA AND PARASITE EXAM 2022-02-21 12:03:00 Cat [facility] CBC WITHOUT DIFF 2022-02-21 09:09:00 John Castaneda [facility] PHOSPHORUS 2022-02-21 09:08:00 Kirsty Deacosta [facility] MAGNESIUM 2022-02-21 09:08:00 Kirsty [facility] COMP. METABOLIC PANEL 2022-02-21 09:08:00 John Castaenda [facility] ([id number]) [facility] CBC WITHOUT DIFF 2022-02-21 09:08:[address] [facility] CLOSTRIDIUM DIFFICILE 2022-02-20 23:32:00 Cat Collado [facility] TOXIN [facility] CBC WITHOUT DIFF 2022-02-20 22:32:00 John Castaneda [facility] FL MODIFIED BARIUM 2022-02-20 20:20:00 John Castaneda [facility] SWALLOW [facility] CBC WITHOUT DIFF 2022-02-20 16:05:00 John Castaneda [facility] OCCULT (GUAIAC) BLOOD 2022-02-20 11:43:00 [facility] OSM[facility], SERUM OR 2022-02-20 08:46:00 Tamia Lofton [facility] PLASMA [facility] COMP. METABOLIC PANEL 2022-02-20 08:46:00 Leonel John [facility] ([id number]) [facility] CBC WITHOUT DIFF 2022-02-20 08:46:00 Leonel John [facility] N-TERMINAL PRO-BNP 2022-02-20 08:46:00 Tamia Lofton [facility] PANEL IDENTIFICATION 2022-02-20 06:40:00 HenningMoe [facility] ABORH CONFIRMATION (LAB 2022-02-20 06:40:00 [facility] HB ABO GROUPING 2022-02-20 04:00:00 [facility] [place] [facility] CBC WITH DIFF 2022-02-19 15:33:00 John Castaneda [facility] BASIC METABOLIC PANEL 2022-02-19 15:32:00 John Castaneda [facility] (NA, K, CL, CO2, GLUCOSE, Medica l Branch BUN, CREATININE, CA) BASIC METABOLIC PANEL 2022-02-18 08:24:00 Babar Mcallister [facility] (NA, K, CL, CO2, GLUCOSE, Medica l Branch BUN, CREATININE, CA) CBC WITHOUT DIFF 2022-02-18 08:24:00 Babar Mcallister [facility] PHOSPHORUS 2022-02-17 10:49:00 [place], [facility] ALBUMIN 2022-02-17 10:49:00 Kirsty [facility] MAGNESIUM 2022-02-17 10:49:00 Kirsty [facility] BASIC METABOLIC PANEL 2022-02-17 10:49:00 Asamoagustin [facility] (NA, K, CL, CO2, GLUCOSE, Medica l Branch BUN, CREATININE, CA) CBC WITH DIFF 2022-02-17 10:49:00 Saleem [facility] SODIUM 2022-02-16 22:18:00 Kirsty [facility] XR CHEST 1 VW 2022-02-16 16:37:00 Kirsty [facility] FERRITIN SERUM 2022-02-16 15:41:00 Kirsty [facility] IRON 2022-02-16 15:41:00 Kirsty [facility] TOTAL IRON BINDING 2022-02-16 15:41:00 Kirsty [facility] PROCALCITONIN 2022-02-16 15:41:00 Saleem [facility] POTASSIUM, URINE RANDOM 2022-02-16 15:31:00 Kirsty Deacosta [facility] SODIUM, URINE RANDOM 2022-02-16 15:31:00 Kirsty [facility] MAGNESIUM 2022-02-16 09:57:00 Saleem [facility] BASIC METABOLIC PANEL 2022-02-16 09:57:00 Asamoagustin [facility] (NA, K, CL, CO2, GLUCOSE, Medica l Branch BUN, CREATININE, CA) N-TERMINAL PRO-BNP 2022-02-16 09:57:00 Kirsty [facility] BASIC METABOLIC PANEL 2022-02-15 08:49:00 [facility]mo [facility] (NA, K, CL, CO2, GLUCOSE, Medica l Branch BUN, CREATININE, CA) CBC WITH DIFF 2022-02-15 08:49:00 Asamoa, [facility] BASIC METABOLIC PANEL 2022-02-14 21:19:00 [facility]Elicia canalesshua [facility] (NA, K, CL, CO2, GLUCOSE, Medica l Branch BUN, CREATININE, CA) XR CHEST 1 2022-02-14 20:47:00 Saleem [facility] SPUTUM CULTURE 2022-02-14 17:01:00 [facility]UM 2022-02-14 08:52:00 [facility]IC [facility]OLIC PANEL 2022-02-14 08:52:00 Esvin [facility] (NA, K, CL, CO2, GLUCOSE, Medica l Branch BUN, CREATININE, CA) CBC WITH DIFF 2022-02-14 08:52:00 Esvin [facility] BASIC METABOLIC PANEL 2022-02-13 19:08:00 Moe [facility] (NA, K, CL, CO2, GLUCOSE, Medica l Branch BUN, CREATININE, CA) MAGNESIUM 2022-02-13 10:28:00 Esvin [facility] BASIC METABOLIC PANEL 2022-02-13 10:28:00 Esvin [facility] (NA, K, CL, CO2, GLUCOSE, Medica l Branch BUN, CREATININE, CA) CBC WITH DIFF 2022-02-13 10:28:00 Esvin [facility] XR CHEST 1 2022-02-12 13:26:00 [facility] BASIC METABOLIC PANEL 2022-02-12 10:06:00 [facility] (NA, K, CL, CO2, GLUCOSE, Medica l Branch BUN, CREATININE, CA) CBC WITHOUT DIFF 2022-02-12 10:06:00 Kraig Eden [facility] ABG+COOX+NA+K+GLU+CA2+ 2022-02-12 09:49:00 Moe Henning U [facility] POCT GLUCOSE (AUTOMATED) 2022-02-12 06:10:00 Kraig Eden [facility] BASIC METABOLIC PANEL 2022-02-11 22:44:00 Elsy [facility] (NA, K, CL, CO2, GLUCOSE, [facility] Medica l Branch BUN, CREATININE, CA) ACTIVATED PARTIAL 2022-02-11 22:29:00 Kraig Eden [facility] SPUTUM CULTURE 2022-02-11 22:07:00 [facility] ACTIV[facility] PARTIAL 2022-02-11 11:11:00 [facility] CBC WITHOUT DIFF 2022-02-11 09:41:00 Kraig Eden [facility] TROPONIN I 2022-02-10 22:11:00 Moe Henning [facility] CRITICAL CARE 2022-02-10 21:31:09 Kraig Eden [facility] TROPONIN I 2022-02-10 15:53:00 Moe Henning [facility] ACTIVATED PARTIAL 2022-02-10 15:53:00 [facility] (TTE) 2022-02-10 14:20:50 Moe Henning [facility] COMPLETE W/ CONTRAST Medical [facility] CBC WITH DIFF 2022-02-10 09:35:00 Moe Henning [facility] URINE CULTURE 2022-02-10 08:59:00 Moe Henning [facility] MAGNESIUM 2022-02-10 08:02:00 Moe Henning [facility] TROPONIN I 2022-02-10 08:02:00 Moe Henning [facility] COMP. METABOLIC PANEL 2022-02-10 08:02:00 Moe Henning [facility] ([id number]) [facility] ACTIVATED PARTIAL 2022-02-10 08:02:00 Moe Henning [facility] MRSA / MSSA SCREEN BY 2022-02-10 08:02:00 [facility], N[facility]ES [facility] Branch AC PANEL 20 + LACTIC ACID 2022-02-10 07:45:00 Stan [facility] XR CHEST 1 VW 2022-02-10 06:45:18 Moe Henning [facility] ID INSERT EMERGENCY 2022-02-10 05:30:00 Kraig Eden [facility] ENDOTRACH AIRWAY [facility] Branch XR CHEST 1 VW 2022-02-10 02:08:04 Kraig Eden [place] [facility] HEPARIN ANTI-XA, 2022-02-10 00:29:00 Kraig Eden [facility] UNFRACTIONATED HEPARIN Medical B ranch AC PANEL 20 + LACTIC ACID 2022-02-10 00:15:00 [facility] CONTRAST 2022-02-09 23:50:32 Kraig Eden [facility] CT THORAX WO CONTRAST 2022-02-09 23:50:32 Kraig Eden [facility] URINALYSIS 2022-02-09 23:26:[address] [facility] URINE DRUG (IMMUNOASSAY) 2022-02-09 23:26:00 Kraig Eden [facility] SCREEN W/O REFLEX COVID-19 (ID NOW RAPID 2022-02-09 23:14:00 [facility] TESTING) [facility] BLOOD CULTURE SCREEN 2022-02-09 23:13:00 Kraig Eden [facility] PROTHROMBIN TIME / INR 2022-02-09 23:11:00 Kraig Eden [facility] ACTIVATED PARTIAL 2022-02-09 23:11:00 Kraig Eden [facility] THRFormerly Medical [facility] N-TERMINAL PRO-BNP 2022-02-09 23:11:00 Kraig Eden [facility] BLOOD CULTURE SCREEN 2022-02-09 23:11:00 Kraig Eden [facility] LIPASE 2022-02-09 23:11:00 [place], Kraig [facility] TROPONIN I 2022-02-09 23:11:00 Kraig Eden [facility] COMP. METABOLIC PANEL 2022-02-09 23:11:00 Kraig Eden [facility] ([id number]) [facility] CBC WITH DIFF 2022-02-09 23:11:00 Kraig Eden [facility] AC PANEL 20 + LACTIC ACID 2022-02-09 23:01:00 Kraig [facility] HB ECG ROUTINE & RHYTHM 2022-02-09 22:50:[address] [facility] XR CHEST 1 VW 2022-02-09 22:46:00 Kraig Eden [facility] EXTERNAL PROVIDER RECORDS 2022-02-09 05:01:00 Doctor Cori, [facility] EMERGENCY DEPARTMENT 2022-02-09 05:01:00 Doctor Cori, [facility] DOCUMENTS [facility] [id number] 2022-01-31 00:00:[address] [facility] [id number] 2022-01-31 00:00:[address] [facility] [id number] 2022-01-31 00:00:[address] [facility] [id number] 2022-01-31 00:00:00 VJA [facility] Clear [facility] [id number] 2022-01-31 00:00:00 VJA [facility] Clear [facility] EXTERNAL PROVIDER RECORDS 2021-09-12 06:01:00 Doctor Cori, [facility] MEDICAL RELEASE/CLEARANCE 2021-08-28 06:01:00 Doctor Cori, [facility] FORMS [place] [facility] Plan of Care Planned Activity Planned Date Details Comments Source Future Scheduled 2022-04-19 INFLUENZA VACCINE (#1) [facility] 00:00:00 [code = INFLUENZA Medical Ce nter VACCINE (#1)] Future Scheduled 2021-08-[address] [facility] 00:00:00 (12+) [code = Medical Center DEPRESSION SCREENING (12+)] Future Scheduled 2021-08-19 FALLS RISK SCREENING [facility] 00:00:00 [code = FALLS RISK Medical C enter SCREENING] Future Scheduled 2021-04-[address] [...] FIRST YEAR if no IPPE)] Future Scheduled 2008-11-[address] [facility] 00:00:00 WELLNESS (YEAR 2 or Medical Center FIRST YEAR if no IPPE) [code = MEDICARE ANNUAL WELLNESS (YEAR 2 or FIRST YEAR if no IPPE)] Future Scheduled 2007-12-05 PNEUMOCOCCAL 65+ YRS [facility] 00:00:00 (1 - PCV) [code = Medical Ce nter PNEUMOCOCCAL 65+ YRS (1 - PCV)] Future Scheduled 2007-12-05 PNEUMOCOCCAL 65+ YRS [facility] Test 00:00:00 (1 of 1 - Medical Center [id number] [id number]) [code = PNEUMOCOCCAL 65+ YRS (1 of 1 - [id number] PCV13)] Future Scheduled 1992 SHINGLES VACCINES ([address] [facility] 00:00:00 of 2) [code = SHINGLES Medic al Center VACCINES (1 of 2)] Future Scheduled 1992 SHINGLES VACCINES ([address] [facility] 00:00:00 of 2) [code = SHINGLES Medic al Center VACCINES (1 of 2)] Future Scheduled 1961 DTAP/TDAP/TD VACCINES [facility] 00:00:00 (1 - Tdap) [code = Medical C enter DTAP/TDAP/TD VACCINES (1 - Tdap)] Future Scheduled 1961 DTAP/TDAP/TD VACCINES [facility] 00:00:00 (1 - Tdap) [code = Medical C enter DTAP/TDAP/TD VACCINES (1 - Tdap)] Future Scheduled 1960 HEPATITIS C SCREENING [facility] 00:00:00 [code = HEPATITIS C Medical Center SCREENING] Future Scheduled 1960 HEPATITIS C [facility]CRE[facility]ING [facility] 00:00:00 [code = HEPATITIS C Medical Center SCREENING] Future Scheduled 1943-06-05 COVID-19 VACCINE (#1) [facility] 00:00:00 [code = COVID-[address] VACCINE (#1)] Encounters Start End Encounter Admission Attending Care Care Encounter Source Date/Time Date/Time Type Type Clinicians Facility Department ID 2022-01-31 Inpatient Yaa Hay HCACL INTE [id number] [facility] 13:26:00 [id number] [facility] 2021-09-13 Outpatient STLMLC STLMLC [id number] Common 12:50:58 [id number] [facility] 2021-09-13 Outpatient STLMLC STLMLC [id number] Common 12:29:13 [id number] [facility] 2021-09-13 Outpatient zzzErickson STLMLC STLMLC [id number] Common 12:24:25 , Erickson [id number] Spiri [facility] 2021-09-13 Outpatient Coleman, STLMLC STLMLC [id number] Common 11:21:20 Erickson [id number] [facility] 2021-09-01 Inpatient R CATRACHO [facility] [id number] Univers [facility] 2020-04-05 Inpatient ER BERSHAD, [facility] Neu[facility] [id number] [facility] 02:12:00 MADELYN 2020-01-19 Inpatient Dabaghi, HCAPM LABO [id number] [facility] 16:02:00 Dav Nimo [facility] 2022-05-08 2022-05-08 Outpatient ERICKSON_R [facility] [id number] - Rachel 00:00:00 00:00:00 [facility] 2022-04-30 2022-04-30 Outpatient ERICKSON_R [facility] [id number] - Rachel 00:00:00 00:00:00 912 [facility] 2022-04-26 2022-04-26 Outpatient ERICKSON_R [facility] [id number] Rachel 00:00:00 00:00:00 908 [facility] 2022-04-26 2022-04-26 Outpatient Jared [facility] [id number] 00:00:00 00:00:00 Erickson [id number] Barber [id number] 2022-04-04 2022-04-21 Inpatient 3 RAQUEL, ENCPL NADJA [id number] ENCPL 17:30:00 11:40:00 DIMITRI 0817 2022-03-09 2022-03-09 Orders Doctor OLIVIER [id number] Univers 00:00:00 00:00:00 Only Unassigned, GILBERTO [id number] ity of [place] [facility] [id number] Patel as [phone] [facility] 009 Branch 2022-03-01 2022-03-01 Transition ROWDY Pak [id number] Univers 00:00:00 00:00:00 of Care Sayda BORRERO [id number] [place] [id number] [facility] 403 Branch 2022-02-09 2022-02-28 Inpatient X MIKEY MONGE [facility] KADE 1 [id number] Univers 17:40:00 13:54:00 MIKEY MONGE ity of [facility] 2022-02-09 2022-02-28 [facility] Kraig Eden [facility] [id number] Univers 17:40:00 13:54:00 Encounter HenningMoe freed [facility] 350.1.13 .10 ity of Mikey Monge [id number] [facility] [id number] [address] ([facility]) 2022-02-02 2022-02-09 Inpatient UR Yaa Mcclain HCACL INTE [id number] [facility] 11:22:00 13:34:00 [id number] [facility] 2022-01-18 2022-01-18 Outpatient ERICKSON_R [facility] 86 Rachel 03:05:00 03:05:00 602 [facility] 2022-01-18 2022-01-18 Outpatient Jared [facility] [id number] 00:00:00 00:00:00 Erickson [id number] Barber [id number] 2022-01-09 2022-01-09 Outpatient ERICKSON_R [facility] [id number] - Rachel 01:07:00 01:07:00 524 [facility] 2022-01-09 2022-01-09 Outpatient Jared [facility] [id number] 00:00:00 00:00:00 Erickson [id number] Barber [id number] 2021-12-26 Outpatient ERICKSON_R [facility] [id number] Rachel 03:29:00 03:29:00 510 [facility] 2021-12-26 2021-12-26 Outpatient Jared [facility] [id number] 00:00:00 00:00:00 Erickson [id number] Barber [id number] 2021-11-07 2021-11-07 Emergency E KESSLER, K[place] [facility] 7500 Memoria 14:09:00 17:46:00 [facility] 2021-11-06 2021-11-06 Outpatient ERICKSON_R [facility] 86 - Rachel 11:01:00 11:01:00 321 [facility] 2021-11-06 2021-11-06 Outpatient Jared [facility] [id number] 00:00:00 00:00:00 Erickson [id number] Barber [id number] 2021-11-06 Outpatient Jared [facility] [id number] 00:00:00 00:00:00 Erickson [id number] Barber [id number] 2021-11-03 2021-11-03 Outpatient ERICKSON_R [facility] [id number] Rachel 02:00:00 02:00:00 318 [facility] 2021-11-03 2021-11-03 Outpatient Jared, [facility] [id number] 00:00:00 00:00:00 Erickson [id number] Barber [id number] 2021-10-26 2021-10-26 Outpatient ERICKSON_R [facility] [id number] Rachel 06:49:00 06:49:00 310 [facility] 2021-10-26 2021-10-26 Outpatient Jared, [facility] [id number] 00:00:00 00:00:00 Erickson [id number] Barber [id number] 2021-10-26 2021-10-26 Outpatient Jared, [facility] [id number] 00:00:00 00:00:00 Erickson [id number] Barber [id number] 2021-10-26 2021-10-26 Outpatient Jared, [facility] [id number] 00:00:00 00:00:00 Erickson [id number] Barber [id number] 2021-10-24 2021-10-24 Outpatient ERICKSON_R [facility] [id number] Rachel 02:59:00 02:59:00 308 [facility] 2021-10-20 2021-10-20 Outpatient ERICKSON_R [facility] 86 - Rachel 02:23:00 02:23:00 304 [facility] 2021-10-20 2021-10-20 Outpatient Jared, [facility] [id number] 00:00:00 00:00:00 Erickson [id number] Barber [id number] 2021-09-30 2021-09-30 Outpatient ERICKSON_R [facility] [id number] - Rachel 07:32:00 07:32:00 212 [facility] 2021-09-12 2021-09-12 Orders Doctor OLIVIER [id number] Univers 00:00:00 00:00:00 Only Unassigned, GILBERTO 350.1.13.10 ity of [place] [facility] [id number] Patel as [phone] [address] 2021-09-08 2021-09-08 [facility] [id number] Univers 14:45:00 14:45:00 ML venus [facility] 2021-09-08 2021-09-08 [facility] [id number] Univers 13:30:00 13:30:00 ML [id number] [facility] 2021-08-28 2021-08-28 Orders Doctor OLIVIER [id number] [id number] Univers 00:00:00 00:00:00 Only Unassigned, GILBERTO 350.1.13.10 ity of [place] [facility] [id number] Patel as [id number] [address] 2021-08-26 2021-08-26 Outpatient ERICKSON_R [facility] [id number] Rachel 04:34:00 04:34:00 108 [facility] 2021-08-16 2021-08-16 [facility] [id number] Univers 16:25:00 23:59:00 ML [facility] 2021-08-16 2021-08-16 [facility] [id number] Univers 16:15:00 16:43:15 Visit [facility] [id number] it y of [place] [id number] Patel as BRANDON?BLEA [phone] [address] MEDICAL OFFICE [facility] 2021-07-22 2021-07-22 Outpatient ERICKSON_R [facility] [id number] - Rachel 05:22:00 05:22:00 204 [facility] 2021-07-10 2021-07-10 Outpatient ERICKSON_R [facility] [id number] - Rachel 11:19:00 11:19:00 122 [facility] 2021-07-10 2021-07-10 Outpatient Jared [facility] [id number] 00:00:00 00:00:00 Erickson [id number] Barber [id number] 2021-07-06 ambulatory STLMLC STLMLC [id number] Common 00:00:00 00:00:00 [facility] 2021-05-03 2021-05-03 Outpatient STLMLC STLMLC [id number] Common 00:00:00 00:00:00 [facility] 2021-04-28 2021-04-28 Outpatient ERICKSON_R [facility] [id number] - Rachel 04:22:00 04:22:00 910 [facility] 2021-04-28 2021-04-28 Outpatient Jared [facility] [id number] 00:00:00 00:00:00 Erickson [id number] Barber [id number] 2021-04-28 2021-04-28 Outpatient STLMLC STLC [id number] Common 00:00:00 00:00:00 [facility] 2021-04-18 2021-04-18 Outpatient ERICKSON_R [facility] [id number] Rachel 01:12:00 01:12:00 831 [facility] 2021-03-14 2021-03-14 Outpatient ERICKSON_R [facility] [id number] Rachel 12:57:00 12:57:00 727 [facility] 2021-01-13 2021-01-13 Outpatient ERICKSON_R [facility] [id number] Rachel 02:36:00 02:36:00 528 [facility] 2021-01-10 2021-01-10 [facility] [id number] Common 00:00:00 00:00:00 [facility] 2021-01-09 2021-01-09 Outpatient [facility] [id number] Rachel 10:40:00 10:40:00 [facility] 2020-12-29 2020-12-29 Outpatient [facility] [id number] Rachel 01:03:00 01:03:00 [facility] 2020-12-29 2020-12-29 Outpatient [facility] [id number] Rachel 01:03:00 01:03:00 [facility] 2020-11-29 2020-11-29 Outpatient [facility] [id number] Common 00:00:00 00:00:00 [facility] 2020-11-24 2020-11-24 Outpatient [facility] [id number] Rachel 01:02:00 01:02:00 408 [facility] 2020-10-15 2020-10-15 Outpatient [facility] [id number] Rachel 01:02:00 01:02:00 227 [facility] 2020-10-13 2020-10-13 Outpatient ERICKSON_R [facility] [id number] Rachel 09:17:00 09:17:00 [facility] 2020-10-10 2020-10-10 Outpatient ERICKSON_R [facility] [id number] Rachel 03:46:00 03:46:00 [facility] 2020-10-10 2020-10-10 Outpatient Jared, [facility] [id number] 00:00:00 00:00:00 Erickson [id number] Barber [id number] 2020-09-09 2020-09-09 Outpatient ERICKSON_R [facility] [id number] Rachel 09:10:00 09:10:00 122 [facility] 2020-09-06 2020-09-06 Outpatient ERICKSON_R [facility] [id number] Rachel 03:48:00 03:48:00 119 [facility] 2020-09-06 2020-09-06 Outpatient Jared, [facility] [id number] 00:00:00 00:00:00 Erickson [id number] Barber [id number] 2020-08-05 2020-08-05 Outpatient ERICKSON_R [facility] 8603 - Rachel 01:02:00 01:02:00 218 [facility] 2020-08-05 2020-08-05 Outpatient ERICKSON_R [facility] 8603 - Rachel 01:02:00 01:02:00 112 [facility] 2020-04-29 2020-04-29 Outpatient Celestine [place] 32 [id number] Common 16:00:00 16:00:00 t Specialty/U Sp fitz Specialty rology - [facility] 2020-04-29 2020-04-29 Outpatient [facility] [place] 31 [id number] Common 13:00:00 13:00:00 t Specialty/U Sp fitz Specialty rology - [facility] 2020-03-22 2020-03-22 Laboratory Lab, [facility] [id number] 14:05:14 14:25:14 Only [facility] [id number] [place] [id number] [id number] nal [address] 2020-01-28 2020-01-28 Outpatient [place] [place] 30 [id number] Common 13:15:00 13:15:00 t Specialty/U Sp fitz Specialty rology - [facility] 2020-01-25 2020-01-25 Outpatient Celestine [place] 31 [id number] Common 13:46:00 13:46:00 t Specialty/U Sp fitz Specialty rology - [facility] 2020-01-23 2020-01-23 Outpatient Dabaghi [facility] [id number] [facility] 09:30:00 09:30:00 Salim 62 [facility] 2020-01-23 2020-01-23 Outpatient ElvihiESTELAWU SURG [id number] [facility] 09:30:00 09:30:00 Salim 03 [facility] 2019-12-28 2019-12-28 Outpatient [place] 30 [id number] Common 13:30:00 13:30:00 t Specialty/U Sp fitz Specialty rology - [facility] Results Test Description Test Time Test Comments Results Result Comments Source BASIC METABOLIC PANEL (NA, K, CL, CO2, GLUCOSE, BUN, 2022-02 11:25:10 CREATININE, CA) Test Item Value Reference Range Interpretation Comme nts NA (test code = 0710722264) 140 mmol/L 135-145 K (test code = 7715264746) 3.7 mmol/L 3.5-5 CL (test code = 5902688405) 117 mmol/L 98-108 H CO2 TOTAL (test code = 2348264623) 21 mmol/L 23-31 L AGAP (test code = 5704699705) 2-16 BUN (test code = 1301249741) 23 mg/dL 7-23 GLUCOSE (test code = 6855693345) 87 mg/dL 70-110 CREATININE (test code = 0.82 mg/dL 0.6-1.25 9121423844) CALCIUM (test code = 7550637856) 7.9 mg/dL 8.6-10.6 L eGFR (test code = 3083053633) mL/min/1.73m2 ADILENE (test code = ADILENE) Association [...] tests). Lab Interpretation (test code = Abnormal 77660-6) [facility] WITHOUT [id number] 10:57:45 Test Item Value Reference Range Interpretation Comments WBC (test code = 6690-2) See_Comment [A utomated message] The system [employer] generated this result transmit gilberto reference range : 4.20 - 10.70 10*3/?L. The reference range was not used to interpret this result as normal/abnormal . RBC (test code = 789-8) See_Comment L [Au tomated message] The system [employer] generated this result transmit gilberto reference range [...] See_Comment H [Au tomated message] The system [employer] generated this result transmit gilberto reference range : 150 - 328 10*3/?L. The reference range was not used to interpret this result as normal/abnormal . MPV (test code = 10.2 fL 9.8-13 20992-6) RDW-CV (test code = 15.4 % 12.1-15.4 788-0) RDW-SD (test code = 51.6 fL 38.5-51.6 09075-7) NRBC x10^3 (test code = See_Comment [Au tomated message] 0931068978) The system [employer] generated this result transmit gilberto reference range : 10*3/?L. The reference range was not used to interpret this result as normal/abnormal . NRBC/100 WBC (test code See_Comment [Au tomated message] = 4150961147) The system [employer] generated this result transmit gilberto reference range : 0.0 - 10.0 /100 WBC s. The reference r lisa was not used to interpret this result as normal/abnormal . IPF % (test code = 9898007490) Lab Interpretation (test Abnormal code = 65587-6) [facility]2022-02-28 05:15:05 Test Item Value Reference Range Interpretation Comments Unit Blood Type (test O Pos code = 4410) ISBT Blood Type Code (test code = 926529) Unit Number (test [id number] code = 4411) Blood Expiration Date & Time (test code = 906934) Status Information Issued (test code = 4412) Product Red Blood Cells Identification (test code = 4413) Product Code (test [id number] Performed at [facility] code = 4414) Laboratory Services - [facility] Blood [address] [place] [address] 09236Tcts Free: [phone] A No. [id number] Cross Match Result Compatible (test code = 4409) [facility]2022-02-25 11:22:22 Test Item Value Reference Range Interpretation Comments POCT GLU (test code = 9710258485) 99 mg/dL 70-110 Lab Interpretation (test code = Normal 91888-5) [facility] WITHOUT [id number] 09:51:29 Test Item Value Reference Range Interpretation Comments WBC (test code = 6690-2) See_Comment [A utomated message] The system [employer] generated this result transmit gilberto reference range : 4.20 - 10.70 10*3/?L. The reference range was not used to interpret this result as normal/abnormal . RBC (test code = 789-8) See_Comment L [Au tomated message] The system [employer] generated this result transmit gilberto reference range [...] 777-3) See_Comment [Au tomated message] The system [employer] generated this result transmit gilberto reference range : 150 - 328 10*3/?L. The reference range was not used to interpret this result as normal/abnormal . MPV (test code = 10.4 fL 9.8-13 56964-7) RDW-CV (test code = 15.4 % 12.1-15.4 788-0) RDW-SD (test code = 53.1 fL 38.5-51.6 H 88230-3) NRBC x10^3 (test code = See_Comment [Au tomated message] 2362050270) The system [employer] generated this result transmit gilberto reference range : 10*3/?L. The reference range was not used to interpret this result as normal/abnormal . NRBC/100 WBC (test code See_Comment [Au tomated message] = 6163041312) The system [facility] generated this result transmit gilberto reference range : 0.0 - 10.0 /100 WBC s. The reference r lisa was not used to interpret this result as normal/abnormal . IPF % (test code = 5837732624) Lab Interpretation (test Abnormal code = 86360-0) [facility] RBC (in units), 1 Units 2022-02-25 05:40:24 Test Item Value Reference Range Interpretation Comments Unit Blood Type (test O Pos code = 4410) ISBT Blood Type Code (test code = 812705) Unit Number (test [id number] code = 4411) Blood Expiration Date & Time (test code = 503379) Status Information Issued (test code = 4412) Product Red Blood Cells Identification (test code = 4413) Product Code (test [id number] Performed at [facility] code = 4414) Laboratory Services - [facility] Blood [address] [place] [address] 74236Eqfk Free: [phone] A No. [id number] Cross Match Result Compatible (test code = 4409) [facility]2022-02-25 04:46:02 Test Item Value Reference Range Interpretation Comments POCT GLU (test code = 9327084390) 117 mg/dL 70-110 H Lab Interpretation (test code = Abnormal 76332-4) [facility] Paso[facility]ANEL [id number] 02:55:10 Test Item Value Reference Range Interpretation Comments ANTIBODY ID (test code Anti-Fya Perfo rmed at [facility] = 245) Laboratory Serv [facility] Blood Bank[address] [place] [address] 96737Vcat Free: [phone] A No. [id number] [facility] WITHOUT [id number] 01:12:01 Test Item Value Reference Range Interpretation Comments WBC (test code = 6690-2) See_Comment [A utomated message] The system [employer] generated this result transmit gilberto reference range : 4.20 - 10.70 10*3/?L. The reference range was not used to interpret this result as normal/abnormal . RBC (test code = 789-8) See_Comment L [Au tomated message] The system [employer] generated this result transmit gilberto reference range [...] 777-3) See_Comment [Au tomated message] The system [employer] generated this result transmit gilberto reference range : 150 - 328 10*3/?L. The reference range was not used to interpret this result as normal/abnormal . MPV (test code = 10.9 fL 9.8-13 55231-9) RDW-CV (test code = 15.5 % 12.1-15.4 H 788-0) RDW-SD (test code = 53.7 fL 38.5-51.6 H 96593-1) NRBC x10^3 (test code = See_Comment [Au tomated message] 4530954088) The system [employer] generated this result transmit gilberto reference range : 10*3/?L. The reference range was not used to interpret this result as normal/abnormal . NRBC/100 WBC (test code See_Comment [Au tomated message] = 7367819509) The system [employer] generated this result transmit gilberto reference range : 0.0 - 10.0 /100 WBC s. The reference r lisa was not used to interpret this result as normal/abnormal . IPF % (test code = 1516320261) Lab Interpretation (test Abnormal code = 35546-1) [facility] Paso[facility] Screen - ONCE [id number] 19:46:27 Test Item Value Reference Range Interpretation Comments ABO & RH (test code O Positive Performe d at [facility] = 20) Laboratory [facility] Blood Bank[address] [place] [address] 26268Lowf Free: [phone] A No. [id number] IAT (test code = Positive Performed a t [facility] 1185) Laboratory Serv [facility] Blood [address] [place] [address] 44786Syaa Free: [phone] A No. [id number] [facility] [id number] 19:00:21 Test Item Value Reference Range Interpretation Comments WBC (test code = 6690-2) See_Comment [A utomated message] The system [employer] generated this result transmit gilberto reference range : 4.20 - 10.70 10*3/?L. The reference range was not used to interpret this result as normal/abnormal . RBC (test code = 789-8) See_Comment L [Au tomated message] The system [employer] generated this result transmit gilberto reference range : 4.26 - 5.52 10* 6/?L. The reference r ilsa was not used to interpret this result as normal/abnormal . HGB (test code = 718-7) 7.2 g/dL 12.2-16.4 L HCT (test code = 4544-3) 22.8 % 38.4-49.3 L MCH (test code = 785-6) 29.5 pg 26.1-32.7 MCV (test code = 787-2) 93.4 fL 81.7-95.6 MCHC (test code = 786-4) 31.6 g/dL 31.2-35 PLT (test code = 777-3) See_Comment [Au tomated message] The system [employer] generated this result transmit gilberto reference range : 150 - 328 10*3/?L. The reference range was not used to interpret this result as normal/abnormal . MPV (test code = 10.8 fL 9.8-13 73590-4) RDW-CV (test code = 15.5 % 12.1-15.4 H 788-0) RDW-SD (test code = 52.6 fL 38.5-51.6 H 99740-6) NRBC x10^3 (test code = See_Comment [Au tomated message] 3987446780) The system [employer] generated this result transmit gilberto reference range : 10*3/?L. The reference range was not used to interpret this result as normal/abnormal . NRBC/100 WBC (test code See_Comment [Au tomated message] = 8990175900) The system [employer] generated this result transmit gilberto reference range : 0.0 - 10.0 /100 WBC s. The reference r lisa was not used to interpret this result as normal/abnormal . IPF % (test code = 4673846835) Lab Interpretation (test Abnormal code = 47543-6) [facility]. METABOLIC PANEL (37418)2022-02-24 09:05:13 Test Item Value Reference Range Interpretation Comments NA (test code = 137 mmol/L 135-145 6351883317) K (test code = 4.4 mmol/L 3.5-5 3107505284) CL (test code = 113 mmol/L 98-108 H 6303216138) CO2 TOTAL (test code = 24 mmol/L 23-31 4325887485) AGAP (test code = 2-16 L 0758982112) BUN (test code = 32 mg/dL 7-23 H 3515419118) GLUCOSE (test code = 81 mg/dL 70-110 8156682613) CREATININE (test code = 0.90 mg/dL 0.6-1.25 2136572022) TOTAL BILI (test code = 0.4 mg/dL 0.1-1.0 5640568563) CALCIUM (test code = 7.5 mg/dL 8.6-10.6 L 4023778579) T PROTEIN (test code = 3.9 g/dL 6.3-8.2 L 0410139573) ALBUMIN (test code = 1.9 g/dL 3.5-5 L 2072015022) ALK PHOS (test code = 69 U/L 34-122 3079260555) ALTv (test code = 19 U/L 5-50 1742-6) AST(SGOT) (test code = 28 U/L 13-40 2861286102) eGFR (test code = mL/min/1.73m2 6156599192) ADILENE (test code = ADILENE) Association of [...] tests). Lab Interpretation Abnormal (test code = 25521-1) [facility] WITHOUT [id number] 08:19:31 Test Item Value Reference Range Interpretation Comments WBC (test code = 6690-2) See_Comment [A utomated message] The system [employer] generated this result transmit gilberto reference range : 4.20 - 10.70 10*3/?L. The reference range was not used to interpret this result as normal/abnormal . RBC (test code = 789-8) See_Comment L [Au tomated message] The system [employer] generated this result transmit gilberto reference range [...] 777-3) See_Comment [Au tomated message] The system [employer] generated this result transmit gilberto reference range : 150 - 328 10*3/?L. The reference range was not used to interpret this result as normal/abnormal . MPV (test code = 11.0 fL 9.8-13 56085-0) RDW-CV (test code = 15.5 % 12.1-15.4 H 788-0) RDW-SD (test code = 52.0 fL 38.5-51.6 H 14692-8) NRBC x10^3 (test code = See_Comment [Au tomated message] 5532466002) The system [employer] generated this result transmit gilberto reference range : 10*3/?L. The reference range was not used to interpret this result as normal/abnormal . NRBC/100 WBC (test code See_Comment [Au tomated message] = 8494520511) The system [facility] generated this result transmit gilberto reference range : 0.0 - 10.0 /100 WBC s. The reference r lisa was not used to interpret this result as normal/abnormal . IPF % (test code = 6020108429) Lab Interpretation (test Abnormal code = 07310-4) [facility]. METABOLIC PANEL (35469)2022-02-23 09:33:59 Test Item Value Reference Range Interpretation Comments NA (test code = 136 mmol/L 135-145 2760799479) K (test code = 4.4 mmol/L 3.5-5 1290405064) CL (test code = 114 mmol/L 98-108 H 4141808918) CO2 TOTAL (test code = 21 mmol/L 23-31 L 7202205960) AGAP (test code = 2-16 L 0635177075) BUN (test code = 35 mg/dL 7-23 H 5608752076) GLUCOSE (test code = 115 mg/dL 70-110 H 2499406839) CREATININE (test code = 0.92 mg/dL 0.6-1.25 5998873399) TOTAL BILI (test code = 0.3 mg/dL 0.1-1.7 3433804068) CALCIUM (test code = 7.5 mg/dL 8.6-10.6 L 3165467827) T PROTEIN (test code = 3.9 g/dL 6.3-8.2 L 4130552816) ALBUMIN (test code = 1.9 g/dL 3.5-5 L 7920141630) ALK PHOS (test code = 85 U/L 34-122 2506990255) ALTv (test code = 21 U/L 5-50 1742-6) AST(SGOT) (test code = 53 U/L 13-40 H 4229218277) eGFR (test code = mL/min/1.73m2 2962131026) ADILENE (test code = ADILENE) Association of [...] tests). Lab Interpretation Abnormal (test code = 73786-4) [facility] WITHOUT [id number] 09:12:16 Test Item Value Reference Range Interpretation Comments WBC (test code = 6690-2) See_Comment [A utomated message] The system [employer] generated this result transmit gilberto reference range : 4.20 - 10.70 10*3/?L. The reference range was not used to interpret this result as normal/abnormal . RBC (test code = 789-8) See_Comment L [Au tomated message] The system [facility] generated this result transmit gilberto reference [...] 777-3) See_Comment [Au tomated message] The system [facility] generated this result transmit gilberto reference range : 150 - 328 10*3/?L. The reference range was not used to interpret this result as normal/abnormal . MPV (test code = 11.3 fL 9.8-13 75269-6) RDW-CV (test code = 15.8 % 12.1-15.4 H 788-0) RDW-SD (test code = 54.4 fL 38.5-51.6 H 03959-1) NRBC x10^3 (test code = See_Comment [Au tomated message] 0520147360) The system [facility] generated this result transmit gilberto reference range : 10*3/?L. The reference range was not used to interpret this result as normal/abnormal . NRBC/100 WBC (test code See_Comment [Au tomated message] = 0043161677) The system [facility] generated this result transmit gilberto reference range : 0.0 - 10.0 /100 WBC s. The reference r lisa was not used to interpret this result as normal/abnormal . IPF % (test code = 6372591222) Lab Interpretation (test Abnormal code = 03257-7) [facility] RBC (in units)2022-02-23 05:15:06 Test Item Value Reference Range Interpretation Comments Unit Blood Type (test O Pos code = 4410) ISBT Blood Type Code (test code = 086103) Unit Number (test [id number] code = 4411) Blood Expiration Date & Time (test code = 022730) Status Information Released (test code = 4412) Product Red Blood Cells Identification (test code = 4413) Product Code (test I1543I35 Performed at [facility] code = 4414) Laboratory Services - [facility] Blood [address] [place] [address] 10813Gbve Free: [phone] A No. [id number] Cross Match Result Compatible (test code = 4409) [facility]2022-07-07 15:28:34 Test Item Value Reference Range Interpretation Comments MAGNESIUM (test code = 4637128259) 2.3 mg/dL 1.7-2.4 Lab Interpretation (test code = Normal 14435-7) [facility] METABOLIC PANEL ([id number])2022-02-22 09:07:47 Test Item Value Reference Range Interpretation Comments NA (test code = 139 mmol/L 135-145 0847860804) K (test code = 3.4 mmol/L 3.5-5 L 9489219670) CL (test code = 112 mmol/L 98-108 H 3283136639) CO2 TOTAL (test code = 23 mmol/L 23-31 5760281566) AGAP (test code = 2-16 3110364579) BUN (test code = 34 mg/dL 7-23 H 9974137046) GLUCOSE (test code = 118 mg/dL 70-110 H 7485483501) CREATININE (test code = 1.02 mg/dL 0.6-1.25 8228753818) TOTAL BILI (test code = 0.3 mg/dL 0.1-1.3 6138421779) CALCIUM (test code = 7.5 mg/dL 8.6-10.6 L 7223072578) T PROTEIN (test code = 4.1 g/dL 6.3-8.2 L 4369055582) ALBUMIN (test code = 2.0 g/dL 3.5-5 L 5141214468) ALK PHOS (test code = 85 U/L 34-122 5340807665) ALTv (test code = 24 U/L 5-50 1742-6) AST(SGOT) (test code = 31 U/L 13-40 8345565822) eGFR (test code = mL/min/1.73m2 1837599095) ADILENE (test code = ADILENE) Association of [...] tests). Lab Interpretation Abnormal (test code = 68451-8) [facility] WITHOUT [id number] 08:50:48 Test Item Value Reference Range Interpretation Comments WBC (test code = 6690-2) See_Comment [A utomated message] The system [employer] generated this result transmit gilberto reference range : 4.20 - 10.70 10*3/?L. The reference range was not used to interpret this result as normal/abnormal . RBC (test code = 789-8) See_Comment L [Au tomated message] The system [employer] generated this result transmit gilberto reference range [...] 777-3) See_Comment [Au tomated message] The system [facility] generated this result transmit gilberto reference range : 150 - 328 10*3/?L. The reference range was not used to interpret this result as normal/abnormal . MPV (test code = 11.4 fL 9.8-13 62706-7) RDW-CV (test code = 16.0 % 12.1-15.4 H 788-0) RDW-SD (test code = 54.7 fL 38.5-51.6 H 32144-0) NRBC x10^3 (test code = See_Comment [Au tomated message] 9212022550) The system [employer] generated this result transmit gilberto reference range : 10*3/?L. The reference range was not used to interpret this result as normal/abnormal . NRBC/100 WBC (test code See_Comment [Au tomated message] = 7777252553) The system [facility] generated this result transmit gilberto reference range : 0.0 - 10.0 /100 WBC s. The reference r lisa was not used to interpret this result as normal/abnormal . IPF % (test code = 9282183872) Lab Interpretation (test Abnormal code = 67249-2) [facility]. METABOLIC PANEL ([id number])2022-02-21 10:00:35 Test Item Value Reference Range Interpretation Comments NA (test code = 142 mmol/L 135-145 9373240591) K (test code = 3.2 mmol/L 3.5-5 L 8202285432) CL (test code = 114 mmol/L 98-108 H 8994893384) CO2 TOTAL (test code = 29 mmol/L 23-31 9532547812) AGAP (test code = 2-16 L 7482347664) BUN (test code = 40 mg/dL 7-23 H 4384070324) GLUCOSE (test code = 100 mg/dL 70-110 9310579747) CREATININE (test code = 1.01 mg/dL 0.6-1.25 8062501233) TOTAL BILI (test code = 0.5 mg/dL 0.1-1.2 4907744720) CALCIUM (test code = 7.8 mg/dL 8.6-10.6 L 8628843892) T PROTEIN (test code = 4.0 g/dL 6.3-8.2 L 9574046915) ALBUMIN (test code = 2.0 g/dL 3.5-5 L 8344037540) ALK PHOS (test code = 62 U/L 34-122 3398600413) ALTv (test code = 18 U/L 5-50 1742-6) AST(SGOT) (test code = 27 U/L 13-40 1609525960) eGFR (test code = mL/min/1.73m2 0409147670) ADILENE (test code = ADILENE) Association of [...] tests). Lab Interpretation Abnormal (test code = 67427-9) [facility]2022-07-06 09:42:12 Test Item Value Reference Range Interpretation Comments MAGNESIUM (test code = 7434228510) 2.4 mg/dL 1.7-2.4 Lab Interpretation (test code = Normal 61241-6) [facility]2022-07-06 09:42:12 Test Item Value Reference Range Interpretation Comments PHOSPHORUS (test code = 7233696966) 3.5 mg/dL 2.5-5 Lab Interpretation (test code = Normal 75247-7) [facility] WITHOUT [id number] 09:25:49 Test Item Value Reference Range Interpretation Comments WBC (test code = 6690-2) See_Comment [A utomated message] The system [employer] generated this result transmit gilberto reference range : 4.20 - 10.70 10*3/?L. The reference range was not used to interpret this result as normal/abnormal . RBC (test code = 789-8) See_Comment L [Au tomated message] The system [employer] generated this result transmit gilberto reference range [...] 777-3) See_Comment [Au tomated message] The system [facility] generated this result transmit gilberto reference range : 150 - 328 10*3/?L. The reference range was not used to interpret this result as normal/abnormal . MPV (test code = 11.3 fL 9.8-13 83156-3) RDW-CV (test code = 15.9 % 12.1-15.4 H 788-0) RDW-SD (test code = 56.2 fL 38.5-51.6 H 67016-4) NRBC x10^3 (test code = See_Comment [Au tomated message] 7725587859) The system [facility] generated this result transmit gilberto reference range : 10*3/?L. The reference range was not used to interpret this result as normal/abnormal . NRBC/100 WBC (test code See_Comment [Au tomated message] = 2069580499) The system [facility] generated this result transmit gilberto reference range : 0.0 - 10.0 /100 WBC s. The reference r lisa was not used to interpret this result as normal/abnormal . IPF % (test code = 5468799427) Lab Interpretation (test Abnormal code = 49689-8) [facility] WITHOUT [id number] 09:25:49 Test Item Value Reference Range Interpretation Comments WBC (test code = 6690-2) See_Comment [A utomated message] The system [facility] generated this result transmit gilberto reference range : 4.20 - 10.70 10*3/?L. The reference range was not used to interpret this result as normal/abnormal . RBC (test code = 789-8) See_Comment L [Au tomated message] The system [facility] generated this result transmit gilberto reference [...] 777-3) See_Comment [Au tomated message] The system [facility] generated this result transmit gilberto reference range : 150 - 328 10*3/?L. The reference range was not used to interpret this result as normal/abnormal . MPV (test code = 11.8 fL 9.8-13 57309-1) RDW-CV (test code = 16.0 % 12.1-15.4 H 788-0) RDW-SD (test code = 56.3 fL 38.5-51.6 H 59842-4) NRBC x10^3 (test code = See_Comment [Au tomated message] 8568636070) The system [facility] generated this result transmit gilberto reference range : 10*3/?L. The reference range was not used to interpret this result as normal/abnormal . NRBC/100 WBC (test code See_Comment [Au tomated message] = 8659814681) The system [facility] generated this result transmit gilberto reference range : 0.0 - 10.0 /100 WBC s. The reference r lisa was not used to interpret this result as normal/abnormal . IPF % (test code = 4507967495) Lab Interpretation (test Abnormal code = 72781-8) [facility] WITHOUT [id number] 22:41:52 Test Item Value Reference Range Interpretation Comments WBC (test code = 6690-2) See_Comment H [A utomated message] The system [facility] generated this result transmit gilberto reference range : 4.20 - 10.70 10*3/?L. The reference range was not used to interpret this result as normal/abnormal . RBC (test code = 789-8) See_Comment L [Au tomated message] The system [facility] generated this result transmit gilberto reference [...] 777-3) See_Comment [Au tomated message] The system [facility] generated this result transmit gilberto reference range : 150 - 328 10*3/?L. The reference range was not used to interpret this result as normal/abnormal . MPV (test code = 11.5 fL 9.8-13 83165-8) RDW-CV (test code = 16.2 % 12.1-15.4 H 788-0) RDW-SD (test code = 57.1 fL 38.5-51.6 H 70437-3) NRBC x10^3 (test code = See_Comment [Au tomated message] 3524409754) The system [facility] generated this result transmit gilberto reference range : 10*3/?L. The reference range was not used to interpret this result as normal/abnormal . NRBC/100 WBC (test code See_Comment [Au tomated message] = 9026407818) The system [facility] generated this result transmit gilberto reference range : 0.0 - 10.0 /100 WBC s. The reference r lisa was not used to interpret this result as normal/abnormal . IPF % (test code = 9466435584) Lab Interpretation (test Abnormal code = 03218-7) [facility] [id number] 19:21:47 Test Item Value Reference Range Interpretation Comments NT-proBNP (test code 80440 pg/mL See_Comment H [Autom ated = 1274769836) message] The system which generated this result transmitted reference range : <=450. The reference range was not used to interpret this result as normal/abnormal . ADILENE (test code = ADILENE) Biotin has been reported to cause a negative bias, interpret results relative to patient's use of biotin. Lab Interpretation Abnormal (test code = 56674-4) [facility]OL[facility], SERUM OR [id number] 17:33:31 Test Item Value Reference Range Interpretation Comments OSMOLALITY (test code = See_Comment H [Au tomated message] 2692-2) The system [employer] generated this result transmitted ref erence range: 278 - 30 5 mOsm/kg. The reference range was not used to int erpret this result as normal/abnormal . Lab Interpretation (test Abnormal code = 47896-4) [facility] WITHOUT [id number] 16:15:21 Test Item Value Reference Range Interpretation Comments WBC (test code = 6690-2) See_Comment H [A utomated message] The system [employer] generated this result transmit gilberto reference range : 4.20 - 10.70 10*3/?L. The reference range was not used to interpret this result as normal/abnormal . RBC (test code = 789-8) See_Comment L [Au tomated message] The system [employer] generated this result transmit gilberto reference range [...] 777-3) See_Comment [Au tomated message] The system [employer] generated this result transmit gilberto reference range : 150 - 328 10*3/?L. The reference range was not used to interpret this result as normal/abnormal . MPV (test code = 11.9 fL 9.8-13 82475-7) RDW-CV (test code = 16.0 % 12.1-15.4 H 788-0) RDW-SD (test code = 57.5 fL 38.5-51.6 H 90590-2) NRBC x10^3 (test code = See_Comment [Au tomated message] 1896430508) The system whic h generated this result transmit gilberto reference range : 10*3/?L. The reference range was not used to interpret this result as normal/abnormal . NRBC/100 WBC (test code See_Comment [Au tomated message] = 5849783627) The system [facility] generated this result transmit gilberto reference range : 0.0 - 10.0 /100 WBC s. The reference r lisa was not used to interpret this result as normal/abnormal . IPF % (test code = 6571205588) Lab Interpretation (test Abnormal code = 98057-8) [facility]AN [id number] 13:13:45 Test Item Value Reference Range Interpretation Comments ANTIBODY ID (test code Anti-Fya Perfo rmed at [facility] = 245) Laboratory Serv [facility] Blood [facility] [place] [address]Jami Free: [phone] A No. [id number] [facility]. METABOLIC PANEL (25664)2022-02-20 09:25:21 Test Item Value Reference Range Interpretation Comments NA (test code = 148 mmol/L 135-145 H 8679101874) K (test code = 3.8 mmol/L 3.5-5 4000378651) CL (test code = 120 mmol/L 98-108 H 4559949995) CO2 TOTAL (test code = 28 mmol/L 23-31 7341951983) AGAP (test code = 2-16 L 5526360695) BUN (test code = 45 mg/dL 7-23 H 6809997205) GLUCOSE (test code = 104 mg/dL 70-110 5986072417) CREATININE (test code = 0.99 mg/dL 0.6-1.25 9586428315) TOTAL BILI (test code = 0.6 mg/dL 0.1-1.8 9283055481) CALCIUM (test code = 8.3 mg/dL 8.6-10.6 L 4983351742) T PROTEIN (test code = 4.2 g/dL 6.3-8.2 L 4893255632) ALBUMIN (test code = 2.2 g/dL 3.5-5 L 6246402791) ALK PHOS (test code = 79 U/L 34-122 8261379512) ALTv (test code = 21 U/L 5-50 1742-6) AST(SGOT) (test code = 31 U/L 13-40 4116522875) eGFR (test code = mL/min/1.73m2 1345222886) ADILENE (test code = ADILENE) Association of [...] tests). Lab Interpretation Abnormal (test code = 81363-1) [facility] WITHOUT [id number] 08:56:22 Test Item Value Reference Range Interpretation Comments WBC (test code = 6690-2) See_Comment [A utomated message] The system [employer] generated this result transmit gilberto reference range : 4.20 - 10.70 10*3/?L. The reference range was not used to interpret this result as normal/abnormal . RBC (test code = 789-8) See_Comment L [Au tomated message] The system [employer] generated this result transmit gilberto reference range [...] 777-3) See_Comment [Au tomated message] The system [facility] generated this result transmit gilberto reference range : 150 - 328 10*3/?L. The reference range was not used to interpret this result as normal/abnormal . MPV (test code = 11.2 fL 9.8-13 77115-1) RDW-CV (test code = 16.0 % 12.1-15.4 H 788-0) RDW-SD (test code = 57.3 fL 38.5-51.6 H 79261-8) NRBC x10^3 (test code = See_Comment [Au tomated message] 8702890410) The system [employer] generated this result transmit gilberto reference range : 10*3/?L. The reference range was not used to interpret this result as normal/abnormal . NRBC/100 WBC (test code See_Comment [Au tomated message] = 5779352046) The system [facility] generated this result transmit gilberto reference range : 0.0 - 10.0 /100 WBC s. The reference r lisa was not used to interpret this result as normal/abnormal . IPF % (test code = 2477362294) Lab Interpretation (test Abnormal code = 56619-8) [facility] Paso[facility] and Screen - ONCE [id number] 05:43:23 Test Item Value Reference Range Interpretation Comments ABO & RH (test code O Positive Performe d at [facility] = 20) Laboratory Serv [facility] Blood [facility] [place] [address]Csce Free: [phone] A No. [id number] IAT (test code = Positive Performed a t [facility] 1185) Laboratory Serv [facility] [place] [address]Xhdx Free: [phone] A No. [id number] [facility] WITH [id number] 16:36:18 Test Item Value Reference Range Interpretation [...] (test code = 59.8 fL 38.5-51.6 H 27968-5) RDW-CV (test code = 16.2 % 12.1-15.4 H 788-0) PLT (test code = See_Comment [Automated 777-3) message] The sy stem which generated this result transmitted reference range : 150 - 328 10*3/ ?L. The reference r lisa was not used to interpret this result as normal/abnormal . MPV (test code = 11.3 fL 9.8-13 65654-3) NRBC/100 WBC (test See_Comment [Automat ed code = 8101291420) message] The system which generated this result transmitted reference range : 0.0 - 10.0 /100 WBCs. The refer ence range was not u sed to interpret th is result as normal/abnormal . NRBC x10^3 (test code See_Comment [Auto mated = 6666031853) message] The s ystem which generated this result transmitted reference range : 10*3/?L. The reference range was not used to interpret this result as normal/abnormal . GRAN MAT (NEUT) % 86.4 % (test code = 770-8) IMM GRAN % (test code 0.60 % = 4117189270) LYMPH % (test code = 6.3 % 736-9) MONO % (test code = 4.7 % 5905-5) EOS % (test code = 1.9 % 713-8) BASO % (test code = 0.1 % 706-2) GRAN MAT x10^3(ANC) 8.72 10*3/uL 1.99-6.95 H (test code = 9906480910) IMM GRAN x10^3 (test 0.06 10*3/uL 0-0.06 code = 8690227942) LYMPH x10^3 (test code 0.63 10*3/uL 1.09-3.23 L = 731-0) MONO x10^3 (test code 0.47 10*3/uL 0.36-1.02 = 742-7) EOS x10^3 (test code = 0.19 10*3/uL 0.06-0.53 711-2) BASO x10^3 (test code 0.01-0.09 = 704-7) Lab Interpretation Abnormal (test code = 85056-2) [facility] METABOLIC PANEL (NA, K, CL, CO2, GLUCOSE, BUN, CREATININE, CA)2022-02-19 16:11:59 Test Item Value Reference Range Interpretation Comments NA (test code = 149 mmol/L 135-145 H 1979442243) K (test code = 3.9 mmol/L 3.5-5 9846342626) CL (test code = 116 mmol/L 98-108 H 2285469898) CO2 TOTAL (test code = 32 mmol/L 23-31 H 5132943428) AGAP (test code = 2-16 L 6900036112) BUN (test code = 49 mg/dL 7-23 H 3343221882) GLUCOSE (test code = 146 mg/dL 70-110 H 3313975637) CREATININE (test code = 1.04 mg/dL 0.6-1.25 4674074367) CALCIUM (test code = 8.3 mg/dL 8.6-10.6 L 7541029755) eGFR (test code = mL/min/1.73m2 4940080451) ADILENE (test code = ADILENE) Association of [...] tests). Lab Interpretation Abnormal (test code = 78644-1) [facility] METABOLIC PANEL (NA, K, CL, CO2, GLUCOSE, BUN, CREATININE, CA)2022-02-18 08:55:09 Test Item Value Reference Range Interpretation Comments NA (test code = 148 mmol/L 135-145 H 4101295691) K (test code = 3.2 mmol/L 3.5-5 L 4773716488) CL (test code = 116 mmol/L 98-108 H 2079092900) CO2 TOTAL (test code = 30 mmol/L 23-31 1086933681) AGAP (test code = 2-16 0101329694) BUN (test code = 54 mg/dL 7-23 H 1980095715) GLUCOSE (test code = 208 mg/dL 70-110 H 5580430746) CREATININE (test code = 1.05 mg/dL 0.6-1.25 8888845195) CALCIUM (test code = 8.0 mg/dL 8.6-10.6 L 7621659509) eGFR (test code = mL/min/1.73m2 7922771525) ADILENE (test code = ADILENE) Association of [...] tests). Lab Interpretation Abnormal (test code = 99570-3) [facility] WITHOUT [id number] 08:31:28 Test Item Value Reference Range Interpretation Comments WBC (test code = 6690-2) See_Comment H [A utomated message] The system [facility] generated this result transmit gilberto reference range : 4.20 - 10.70 10*3/?L. The reference range was not used to interpret this result as normal/abnormal . RBC (test code = 789-8) See_Comment L [Au tomated message] The system [facility] generated this result transmit gilberto reference [...] 777-3) See_Comment [Au tomated message] The system [facility] generated this result transmit gilberto reference range : 150 - 328 10*3/?L. The reference range was not used to interpret this result as normal/abnormal . MPV (test code = 11.1 fL 9.8-13 17569-8) RDW-CV (test code = 16.8 % 12.1-15.4 H 788-0) RDW-SD (test code = 62.1 fL 38.5-51.6 H 79106-0) NRBC x10^3 (test code = See_Comment [Au tomated message] 5631699770) The system [facility] generated this result transmit gilberto reference range : 10*3/?L. The reference range was not used to interpret this result as normal/abnormal . NRBC/100 WBC (test code See_Comment [Au tomated message] = 5759995237) The system [facility] generated this result transmit gilberto reference range : 0.0 - 10.0 /100 WBC s. The reference r lisa was not used to interpret this result as normal/abnormal . IPF % (test code = 2398510002) Lab Interpretation (test Abnormal code = 25920-7) [facility] WITH [id number] 11:30:58 Test Item Value Reference Range Interpretation [...] (test code = 60.6 fL 38.5-51.6 H 78852-6) RDW-CV (test code = 16.8 % 12.1-15.4 H 788-0) PLT (test code = See_Comment [Automated 777-3) message] The system which generated this result transmit gilberto reference range : 150 - 328 10*3/ ?L. The reference range was not u sed to interpret th is result as normal/abnormal . MPV (test code = 10.5 fL 9.8-13 59229-4) NRBC/100 WBC (test See_Comment [Automat ed code = 4725186281) message] The system which generated this result transmit gilberto reference range : 0.0 - 10.0 /100 WBCs. The reference range was not used to interpret this result as normal/abnormal . NRBC x10^3 (test code See_Comment [Auto mated = 8133535439) message] The system which generated this result transmit gilberto reference range : 10*3/?L. The reference range was not used to interpret this result as normal/abnormal . GRAN MAT (NEUT) % 89.4 % (test code = 770-8) IMM GRAN % (test code 0.80 % = 4133603954) LYMPH % (test code = 4.6 % 736-9) MONO % (test code = 3.6 % 5905-5) EOS % (test code = 1.4 % 713-8) BASO % (test code = 0.2 % 706-2) GRAN MAT x10^3(ANC) 14.83 10*3/uL 1.99-6.95 H (test code = 3775221189) IMM GRAN x10^3 (test 0.13 10*3/uL 0-0.06 H code = 6379848180) LYMPH x10^3 (test code 0.77 10*3/uL 1.09-3.23 L = 731-0) MONO x10^3 (test code 0.59 10*3/uL 0.36-1.02 = 742-7) EOS x10^3 (test code = 0.23 10*3/uL 0.06-0.53 711-2) BASO x10^3 (test code 0.03 10*3/uL 0.01-0.09 = 704-7) TOXIC CHANGES (test Present A code = 803-7) Lab Interpretation Abnormal (test code = 87556-2) [facility] METABOLIC PANEL (NA, K, CL, CO2, GLUCOSE, BUN, CREATININE, CA)2022-02-17 11:16:59 Test Item Value Reference Range Interpretation Comments NA (test code = 151 mmol/L 135-145 H 9015903511) K (test code = 3.4 mmol/L 3.5-5 L 7081320424) CL (test code = 118 mmol/L 98-108 H 7362876595) CO2 TOTAL (test code = 30 mmol/L 23-31 8785120391) AGAP (test code = 2-16 4604211997) BUN (test code = 53 mg/dL 7-23 H 3401718035) GLUCOSE (test code = 124 mg/dL 70-110 H 7973881120) CREATININE (test code = 1.03 mg/dL 0.6-1.25 1242085652) CALCIUM (test code = 8.7 mg/dL 8.6-10.6 6739161772) eGFR (test code = mL/min/1.73m2 3248743582) ADILENE (test code = ADILENE) Association of [...] tests). Lab Interpretation Abnormal (test code = 88025-1) [facility] 11:16:59 Test Item Value Reference Range Interpretation Comments ALBUMIN (test code = 9670039912) 2.6 g/dL 3.5-5 L Lab Interpretation (test code = Abnormal 78415-7) [facility]2022-[facility]-02 11:16:59 Test Item Value Reference Range Interpretation Comments MAGNESIUM (test code = 8748972088) 2.4 mg/dL 1.7-2.4 Lab Interpretation (test code = Normal 93469-9) [facility]PHOSPHORUS2022-07-02 11:16:59 Test Item Value Reference Range Interpretation Comments PHOSPHORUS (test code = 5714971890) 3.5 mg/dL 2.5-5 Lab Interpretation (test code = Normal 58826-7) [facility] PasoFERRITIN [id number] 00:36:14 Test Item Value Reference Range Interpretation Comments FERRITIN (test code = 664.0 ng/mL 18-464 H 0183097344) ADILENE (test code = ADILENE) Biotin has been reported to cause a negative bias, interpret results relative to patient's use of biotin. Lab Interpretation (test Abnormal code = 65341-0) [facility] Paso[facility]OTAL IRON BINDING [id number] 00:12:15 Test Item Value Reference Range Interpretation Comments TIBC (test code = 2793245751) 172 ug/dL 250-410 L % FE SAT (test code = 7655592904) 18 % 20-50 L Lab Interpretation (test code = Abnormal 13908-0) [facility]2022-[facility]-02 00:01:30 Test Item Value Reference Range Interpretation Comments IRON (test code = 7166136333) 31 ug/dL 50-160 L Lab Interpretation (test code = Abnormal 37111-1) [facility]oS[facility]UM2022-07-01 22:43:23 Test Item Value Reference Range Interpretation Comments NA (test code = 1160231489) 153 mmol/L 135-145 H Lab Interpretation (test code = Abnormal 53951-8) [facility] PasoPROCALCITONIN2022-07-01 21:11:33 Test Item Value Reference Interpretation Comments Range Procalcitonin (test 0.12 ng/mL See_Comment H [Automa gilberto code = 2123249629) message] The system which generated this result [...] lung abscess/empyema. For further information please refer to:[email or web address] Lab Interpretation Abnormal (test code = 06131-9) [facility] PasoN-TERMINAL [id number] 17:50:41 Test Item Value Reference Range Interpretation Comments NT-proBNP (test code 51850 pg/mL See_Comment H [Autom ated = 0689620950) message] The system which generated this result transmitted reference range : <=450. The reference range was not used to interpret this result as normal/abnormal . ADILENE (test code = ADILENE) Biotin has been reported to cause a negative bias, interpret results relative to patient's use of biotin. Lab Interpretation Abnormal (test code = 13456-8) [facility] METABOLIC PANEL (NA, K, CL, CO2, GLUCOSE, BUN, CREATININE, CA)2022-02-16 10:59:14 Test Item Value Reference Range Interpretation Comments NA (test code = 154 mmol/L 135-145 H 6825018463) K (test code = 3.8 mmol/L 3.5-5 6953261073) CL (test code = 117 mmol/L 98-108 H 4261387294) CO2 TOTAL (test code = 33 mmol/L 23-31 H 4169098213) AGAP (test code = 2-16 5396971066) BUN (test code = 50 mg/dL 7-23 H 6530800546) GLUCOSE (test code = 130 mg/dL 70-110 H 2795943059) CREATININE (test code = 1.08 mg/dL 0.6-1.25 7613085272) CALCIUM (test code = 8.7 mg/dL 8.6-10.6 3039389375) eGFR (test code = mL/min/1.73m2 6012691149) ADILENE (test code = ADILENE) Association of [...] tests). Lab Interpretation Abnormal (test code = 37045-8) [facility]2022-[facility]-01 10:59:14 Test Item Value Reference Range Interpretation Comments MAGNESIUM (test code = 6480855042) 2.3 mg/dL 1.7-2.4 Lab Interpretation (test code = Normal 03554-5) [facility] PasoBLOOD GAS W/[id number] 10:40:00 Test Item Value Reference Range Interpretation [...] 4.5-7.0 code = KBD) MEQ/L BLOOD GAS [id number] 10:39:00 Test Item Value Reference Range Interpretation [...] (test code = 152 mmol/L 135-145 H 0062671415) K (test code = 3.2 mmol/L 3.5-5 L 7749533540) CL (test code = 117 mmol/L 98-108 H 6358039588) CO2 TOTAL (test code = 32 mmol/L 23-31 H 5248216969) AGAP (test code = 2-16 2776019014) BUN (test code = 48 mg/dL 7-23 H 0293755779) GLUCOSE (test code = 148 mg/dL 70-110 H 2665863473) CREATININE (test code = 1.26 mg/dL 0.6-1.25 H 0315918841) CALCIUM (test code = 8.7 mg/dL 8.6-10.6 1421298094) eGFR (test code = mL/min/1.73m2 8941575781) ADILENE (test code = ADILENE) Association of [...] tests). Lab Interpretation Abnormal (test code = 66576-3) [facility] WITH [id number] 09:35:07 Test Item Value Reference Range Interpretation [...] (test code = 57.7 fL 38.5-51.6 H 25744-3) RDW-CV (test code = 16.3 % 12.1-15.4 H 788-0) PLT (test code = See_Comment [Automated 777-3) message] The system which generated this result transmit gilberto reference range : 150 - 328 10*3/ ?L. The reference range was not u sed to interpret th is result as normal/abnormal . MPV (test code = 10.9 fL 9.8-13 12968-5) NRBC/100 WBC (test See_Comment [Automat ed code = 5439013175) message] The system which generated this result transmit gilberto reference range : 0.0 - 10.0 /100 WBCs. The reference range was not used to interpret this result as normal/abnormal . NRBC x10^3 (test code See_Comment [Auto mated = 8303275856) message] The system which generated this result transmit gilberto reference range : 10*3/?L. The reference range was not used to interpret this result as normal/abnormal . GRAN MAT (NEUT) % 90.5 % (test code = 770-8) IMM GRAN % (test code 0.80 % = 0147990399) LYMPH % (test code = 4.2 % 736-9) MONO % (test code = 4.0 % 5905-5) EOS % (test code = 0.4 % 713-8) BASO % (test code = 0.1 % 706-2) GRAN MAT x10^3(ANC) 12.97 10*3/uL 1.99-6.95 H (test code = 6279046681) IMM GRAN x10^3 (test 0.11 10*3/uL 0-0.06 H code = 4376775731) LYMPH x10^3 (test code 0.60 10*3/uL 1.09-3.23 L = 731-0) MONO x10^3 (test code 0.58 10*3/uL 0.36-1.02 = 742-7) EOS x10^3 (test code = 0.06 10*3/uL 0.06-0.53 711-2) BASO x10^3 (test code 0.01-0.09 = 704-7) Lab Interpretation Abnormal (test code = 15349-9) [facility] Paso[facility] Culture - Peripheral # [id number] 00:01:24 Test Item Value Reference Range Interpretation Comments Blood Culture-Aerobic No organisms No growth Previo us (test code = 59226-5) isolated prelim inary verified result was Culture In Progress on 02/09/2022 at 22 CDTPrevious preliminary verified result was No growth a t 24 hours on 02/10/2022 at 06 09 CDTPrevious preliminary verified result was No growth a t 48 hours on 02/11/2022 at 06 09 CDTPrevious preliminary verified result was No growth a t 72 hours on 02/12/2022 at 19 CDT Blood No organisms No growth Previous Culture-Anaerobic isolated preliminar y (test code = 92300-8) verifi ed result was Culture In Progress [...] CDT Lab Interpretation Normal (test code = 37696-9) [facility] Culture - Peripheral # [id number] 00:01:24 Test Item Value Reference Range Interpretation Comments Blood Culture-Aerobic No organisms No growth Previo us (test code = 97220-7) isolated prelim inary verified result was Culture [...] Culture-Anaerobic isolated preliminar y (test code = 31301-6) verifi ed result was Culture In Progress on 02/09/2022 at 22 CDTPrevious preliminary verified result was No growth a t 24 hours on 02/10/2022 at 06 09 CDTPrevious preliminary verified result was No growth a t 48 hours on 02/11/2022 at 06 09 CDTPrevious preliminary verified result was No growth a t 72 hours on 02/12/2022 at 01 CDT Lab Interpretation Normal (test code = 67638-9) [facility] PasoSPUTUM [id number] 22:16:49 Test Item Value Reference Range Interpretation Comments SPUTUM CULTURE (test Specimen cellular code = 622-1) elements do not represent lower respiratory tract. Specimen rejected for routine bacterial culture. Suggest reorder and recollection. Gram stain (test code Numerous Epithelial = 664-3) cells [facility] (NA, K, CL, CO2, GLUCOSE, BUN, CREATININE, CA)2022-02-14 21:48:21 Test Item Value Reference Range Interpretation Comments NA (test code = 150 mmol/L 135-145 H 4357475294) K (test code = 3.7 mmol/L 3.5-5 4374115862) CL (test code = 117 mmol/L 98-108 H 7088455081) CO2 TOTAL (test code = 33 mmol/L 23-31 H 0452159824) AGAP (test code = 2-16 L 4721046052) BUN (test code = 47 mg/dL 7-23 H 4369156847) GLUCOSE (test code = 181 mg/dL 70-110 H 3825852653) CREATININE (test code = 1.38 mg/dL 0.6-1.25 H 2957585024) CALCIUM (test code = 8.7 mg/dL 8.6-10.6 0543525554) eGFR (test code = mL/min/1.73m2 3315401159) ADILENE (test code = ADILENE) Association of [...] tests). Lab Interpretation Abnormal (test code = 00012-7) [facility] PasoSP[facility] [id number] 18:01:14 Test Item Value Reference Range Interpretation Comments SPUTUM CULTURE 3+ Yeast not Cryptococcus (test code = 622-1) species Gram stain (test Numerous Epithelial cells code = 664-3) ADILENE (test code = Bacterial pathogens ADILENE) associated with lower respiratory infections were not identified, which include Pseudomonas aeruginosa and Staphylococcus aureus (MRSA or MSSA). [facility] (NA, K, CL, CO2, GLUCOSE, BUN, CREATININE, CA)2022-02-14 10:35:28 Test Item Value Reference Range Interpretation Comments NA (test code = 147 mmol/L 135-145 H 2738149730) K (test code = 2.6 mmol/L 3.5-5 LL 3313754721) CL (test code = 115 mmol/L 98-108 H 2654393260) CO2 TOTAL (test code = 29 mmol/L 23-31 8833859571) AGAP (test code = 2-16 5758730806) BUN (test code = 45 mg/dL 7-23 H 1029189183) GLUCOSE (test code = 146 mg/dL 70-110 H 0334790011) CREATININE (test code = 1.41 mg/dL 0.6-1.25 H 5254847345) CALCIUM (test code = 8.4 mg/dL 8.6-10.6 L 2634800666) eGFR (test code = mL/min/1.73m2 6132082816) ADILENE (test code = ADILENE) Association of [...] tests). Lab Interpretation Abnormal (test code = 92208-7) [facility] 10:13:13 Test Item Value Reference Range Interpretation Comments MAGNESIUM (test code = 0124091548) 2.2 mg/dL 1.7-2.4 Lab Interpretation (test code = Normal 11833-7) [facility] WITH [id number] 09:59:50 Test Item Value Reference Range Interpretation Comments WBC (test code = See_Comment H [Automated 1490-2) message] The system which generated this result transmit gilberto reference range : 4.20 - 10.70 10*3/?L. The reference range was not used to interpret this result as normal/abnormal . RBC (test code = See_Comment L [Automated 799-8) message] The system which generated this result [...] (test code = 57.8 fL 38.5-51.6 H 41424-9) RDW-CV (test code = 16.2 % 12.1-15.4 H 788-0) PLT (test code = See_Comment [Automated 777-3) message] The system which generated this result transmit gilberto reference range : 150 - 328 10*3/ ?L. The reference range was not u sed to interpret th is result as normal/abnormal . MPV (test code = 10.7 fL 9.8-13 09340-8) NRBC/100 WBC (test See_Comment [Automat ed code = 7351386331) message] The system which generated this result transmit gilberto reference range : 0.0 - 10.0 /100 WBCs. The reference range was not used to interpret this result as normal/abnormal . NRBC x10^3 (test code See_Comment [Auto mated = 1500915007) message] The system which generated this result transmit gilberto reference range : 10*3/?L. The reference range was not used to interpret this result as normal/abnormal . GRAN MAT (NEUT) % 92.4 % (test code = 770-8) IMM GRAN % (test code 0.80 % = 1691536458) LYMPH % (test code = 3.4 % 736-9) MONO % (test code = 3.0 % 5905-5) EOS % (test code = 0.2 % 713-8) BASO % (test code = 0.2 % 706-2) GRAN MAT x10^3(ANC) 11.28 10*3/uL 1.99-6.95 H (test code = 3146329039) IMM GRAN x10^3 (test 0.10 10*3/uL 0-0.06 H code = 6488493148) LYMPH x10^3 (test code 0.41 10*3/uL 1.09-3.23 L = 731-0) MONO x10^3 (test code 0.37 10*3/uL 0.36-1.02 = 742-7) EOS x10^3 (test code = 0.03 10*3/uL 0.06-0.53 L 711-2) BASO x10^3 (test code 0.01-0.09 = 704-7) Lab Interpretation Abnormal (test code = 94861-5) [facility] METABOLIC PANEL (NA, K, CL, CO2, GLUCOSE, BUN, CREATININE, CA)2022-02-13 19:54:51 Test Item Value Reference Range Interpretation Comments NA (test code = 146 mmol/L 135-145 H 6429526265) K (test code = 3.1 mmol/L 3.5-5 L 2435125234) CL (test code = 113 mmol/L 98-108 H 6124212453) CO2 TOTAL (test code = 28 mmol/L 23-31 2332835076) AGAP (test code = 2-16 8688619359) BUN (test code = 44 mg/dL 7-23 H 4511876806) GLUCOSE (test code = 117 mg/dL 70-110 H 6889992351) CREATININE (test code = 1.49 mg/dL 0.6-1.25 H 2451116604) CALCIUM (test code = 8.4 mg/dL 8.6-10.6 L 4668755220) eGFR (test code = mL/min/1.73m2 9571471135) ADILENE (test code = ADILENE) Association of [...] tests). Lab Interpretation Abnormal (test code = 52429-8) [facility] METABOLIC PANEL (NA, K, CL, CO2, GLUCOSE, BUN, CREATININE, CA)2022-02-13 11:41:41 Test Item Value Reference Range Interpretation Comments NA (test code = 142 mmol/L 135-145 1135704539) K (test code = 2.8 mmol/L 3.5-5 LL 7710390372) CL (test code = 113 mmol/L 98-108 H 3880437730) CO2 TOTAL (test code = 28 mmol/L 23-31 8719779960) AGAP (test code = 2-16 L 5790103849) BUN (test code = 46 mg/dL 7-23 H 3329656155) GLUCOSE (test code = 104 mg/dL 70-110 3001039581) CREATININE (test code = 1.45 mg/dL 0.6-1.25 H 8996894348) CALCIUM (test code = 8.2 mg/dL 8.6-10.6 L 8516005595) eGFR (test code = mL/min/1.73m2 4000890227) ADILENE (test code = ADILENE) Association of [...] tests). Lab Interpretation Abnormal (test code = 92441-1) [facility] 11:36:18 Test Item Value Reference Range Interpretation Comments MAGNESIUM (test code = 0965522087) 2.1 mg/dL 1.7-2.4 Lab Interpretation (test code = Normal 36819-3) [facility] WITH [id number] 10:45:32 Test Item Value Reference Range Interpretation Comments WBC (test code = See_Comment H [Automated 6690-2) message] The sy stem which [...] (test code = 57.2 fL 38.5-51.6 H 70088-7) RDW-CV (test code = 16.1 % 12.1-15.4 H 788-0) PLT (test code = See_Comment [Automated 777-3) message] The sy stem which generated this result transmitted reference range : 150 - 328 10*3/ ?L. The reference r lisa was not used to interpret this result as normal/abnormal . MPV (test code = 10.6 fL 9.8-13 09727-4) NRBC/100 WBC (test See_Comment [Automat ed code = 0714699332) message] The system which generated this result transmitted reference range : 0.0 - 10.0 /100 WBCs. The refer ence range was not u sed to interpret th is result as normal/abnormal . NRBC x10^3 (test code See_Comment [Auto mated = 5734703780) message] The s ystem which generated this result transmitted reference range : 10*3/?L. The reference range was not used to interpret this result as normal/abnormal . GRAN MAT (NEUT) % 90.3 % (test code = 770-8) IMM GRAN % (test code 1.10 % = 8928932980) LYMPH % (test code = 4.4 % 736-9) MONO % (test code = 3.8 % 5905-5) EOS % (test code = 0.3 % 713-8) BASO % (test code = 0.1 % 706-2) GRAN MAT x10^3(ANC) 9.75 10*3/uL 1.99-6.95 H (test code = 3208045438) IMM GRAN x10^3 (test 0.12 10*3/uL 0-0.06 H code = 9434938367) LYMPH x10^3 (test code 0.47 10*3/uL 1.09-3.23 L = 731-0) MONO x10^3 (test code 0.41 10*3/uL 0.36-1.02 = 742-7) EOS x10^3 (test code = 0.03 10*3/uL 0.06-0.53 L 711-2) BASO x10^3 (test code 0.01-0.09 = 704-7) Lab Interpretation Abnormal (test code = 58818-2) [facility] METABOLIC PANEL (NA, K, CL, CO2, GLUCOSE, BUN, CREATININE, CA)2022-02-12 10:37:31 Test Item Value Reference Range Interpretation Comments NA (test code = 143 mmol/L 135-145 2261046643) K (test code = 3.4 mmol/L 3.5-5 L 9926395798) CL (test code = 113 mmol/L 98-108 H 1561472068) CO2 TOTAL (test code = 24 mmol/L 23-31 4512611883) AGAP (test code = 2-16 6350988565) BUN (test code = 48 mg/dL 7-23 H 8474849680) GLUCOSE (test code = 83 mg/dL 70-110 0520324578) CREATININE (test code = 1.73 mg/dL 0.6-1.25 H 1807911809) CALCIUM (test code = 8.2 mg/dL 8.6-10.6 L 8043308822) eGFR (test code = mL/min/1.73m2 4979683824) ADILENE (test code = ADILENE) Association of [...] tests). Lab Interpretation Abnormal (test code = 35845-2) [facility] [id number] 10:14:11 Test Item Value Reference Range Interpretation Comments WBC (test code = 6690-2) See_Comment [A utomated message] The system [employer] generated this result transmit gilberto reference range : 4.20 - 10.70 10*3/?L. The reference range was not used to interpret this result as normal/abnormal . RBC (test code = 789-8) See_Comment L [Au tomated message] The system [employer] generated this result transmit gilberto reference range [...] 777-3) See_Comment [Au tomated message] The system [employer] generated this result transmit gilberto reference range : 150 - 328 10*3/?L. The reference range was not used to interpret this result as normal/abnormal . MPV (test code = 10.3 fL 9.8-13 53023-1) RDW-CV (test code = 16.3 % 12.1-15.4 H 788-0) RDW-SD (test code = 60.3 fL 38.5-51.6 H ) NRBC x10^3 (test code = See_Comment [Au tomated message] 0399442582) The system [facility] generated this result transmit gilberto reference range : 10*3/?L. The reference range was not used to interpret this result as normal/abnormal . NRBC/100 WBC (test code See_Comment [Au tomated message] = 2626871523) The system [facility] generated this result transmit gilberto reference range : 0.0 - 10.0 /100 WBC s. The reference r lisa was not used to interpret this result as normal/abnormal . IPF % (test code = 0497245030) Lab Interpretation (test Abnormal code = 54018-9) [facility]GLU+CA2+2022-02-12 09:55:36 Test Item Value Reference Range Interpretation Comments PH (test code = 2) 7.35-7.45 PCO2 (test code = See_Comment [Automat ed message] 6328222447) The system [facility] generated this result transmit gilberto reference range : 35 - 45 mmHg. The reference range was not used to interpret this result as normal/abnormal . PO2 (test code = See_Comment L [Automated message] 9867981995) The system [facility] generated this result transmit gilberto reference range : 80 - 100 mmHg. The reference range was not used to interpret this result as normal/abnormal . HCO3 (test code = See_Comment L [Automate d message] 6089933080) The system [facility] generated this result transmit gilberto reference range : 22 - 26 mEq/L. The reference range was not used to interpret this result as normal/abnormal . BE (test code = See_Comment L [Automated message] 2948489048) The system [facility] generated this result transmit gilberto reference range : -3.0 - 3.0 mEq/ L. The reference r lisa was not used to interpret this result as normal/abnormal . THB (test code = 8.9 g/dL 13.5-18 L 6037616767) %O2HB (test code = 93.9 % 94-99 L 4441487309) %COHB ART (test code = 0.3 % 0-1.5 3109831112) %METHB ART (test code = 0.3 % 0.4-1.5 L 1010602578) VOL%O2 ART (test code = 11.9 % 15-23 L 3126929536) NA (test code = 141 mmol/L 135-145 3720133004) K+ (test code = 3.1 mmol/L 3.5-5 L 7710126995) AC CA IONZ (test code = 4.70 mg/dL 4.5-5.3 0144469448) GLUCOSE (test code = 83 mg/dL 70-110 6199308612) Lab Interpretation Abnormal (test code = 63258-8) [facility]22-02-12 06:12:23 Test Item Value Reference Range Interpretation Comments POCT GLU (test code = 9370309542) 74 mg/dL 70-110 Lab Interpretation (test code = Normal 41079-4) [facility] METABOLIC PANEL (NA, K, CL, CO2, GLUCOSE, BUN, CREATININE, CA)2022-02-11 23:45:13 Test Item Value Reference Range Interpretation Comments NA (test code = 141 mmol/L 135-145 0478599857) K (test code = 3.9 mmol/L 3.5-5 0250551274) CL (test code = 112 mmol/L 98-108 H 1396427309) CO2 TOTAL (test code = 23 mmol/L 23-31 1584668195) AGAP (test code = 2-16 2921609018) BUN (test code = 48 mg/dL 7-23 H 6821098841) GLUCOSE (test code = 51 mg/dL 70-110 L 4787211789) CREATININE (test code = 1.48 mg/dL 0.6-1.25 H 3021773399) CALCIUM (test code = 8.1 mg/dL 8.6-10.6 L 2107113495) eGFR (test code = mL/min/1.73m2 8365249748) ADILENE (test code = ADILENE) Association of [...] tests). Lab Interpretation Abnormal (test code = 69063-3) [facility] (for use with Heparin Infusion)2022-02-11 22:46:14 Test Item Value Reference Range Interpretation Comments APTT Patient (test code See_Comment H [Au tomated message] = 3173-2) The system [employer] generated this result transmitted ref erence range: 26 - 36 Seconds. The reference range was not used to int erpret this result as normal/abnormal . Lab Interpretation (test Abnormal code = 86185-3) [facility] (for use with Heparin Infusion)2022-02-11 11:40:02 Test Item Value Reference Range Interpretation Comments APTT Patient (test code See_Comment H [Au tomated message] = 3173-2) The system [employer] generated this result transmitted ref erence range: 26 - 36 Seconds. The reference range was not used to int erpret this result as normal/abnormal . Lab Interpretation (test Abnormal code = 22008-4) [facility] [id number] 10:44:56 Test Item Value Reference Range Interpretation Comments WBC (test code = 6690-2) See_Comment [A utomated message] The system [facility] generated this result transmit gilberto reference range : 4.20 - 10.70 10*3/?L. The reference range was not used to interpret this result as normal/abnormal . RBC (test code = 789-8) See_Comment L [Au tomated message] The system [facility] generated this result transmit gilberto reference [...] 777-3) See_Comment [Au tomated message] The system [facility] generated this result transmit gilberto reference range : 150 - 328 10*3/?L. The reference range was not used to interpret this result as normal/abnormal . MPV (test code = 10.7 fL 9.8-13 25487-9) RDW-CV (test code = 16.2 % 12.1-15.4 H 788-0) RDW-SD (test code = 59.7 fL 38.5-51.6 H 93889-7) NRBC x10^3 (test code = See_Comment [Au tomated message] 7885527648) The system [facility] generated this result transmit gilberto reference range : 10*3/?L. The reference range was not used to interpret this result as normal/abnormal . NRBC/100 WBC (test code See_Comment [Au tomated message] = 4628614767) The system [facility] generated this result transmit gilberto reference range : 0.0 - 10.0 /100 WBC s. The reference r lisa was not used to interpret this result as normal/abnormal . IPF % (test code = 2720757620) Lab Interpretation (test Abnormal code = 48543-5) [facility] [id number] 23:26:46 Test Item Value Reference Interpretation Comments Range TROPONIN I (test 2.360 ng/mL See_Comment H Hemolyzed code = 9993353873) specimen [Automated message] The system which generated [...] biotin. Lab Interpretation Abnormal (test code = 80506-4) [facility] 22:26:26 Test Item Value Reference Range Interpretation Comments Height (test code = in 9589878666) Weight (test code = lbs 7611667049) Systolic BP (test code = mmHg 2598954662) Diastolic BP (test code mmHg = 0795804480) Heart Rate (test code = bpm 7313948940) BSA (test code = 2.10 m2 7935749889) LVOT stroke volume (test 58.00 cm3 code = 4302871380) EF(MOD-bp) (test code = 37.90 % 7014078633) EF(Teich) (test code = 42.20 % 4799381050) LVIDD (test code = 3.70 cm 4850089907) LV Systolic Volume (BP) 109.2 mL (test code = 4539247230) LVIDS (test code = 3.00 cm 8878018842) LV Diastolic Volume (BP) 175.9 mL (test code = 5885417876) IVS (test code = 1.20 cm 0069990665) LVPWD (test code = 1.21 cm 2612261821) LVOT diameter (test code 2.13 cm = 9712871317) FS (test code = 20 % 3271597315) MV Peak E Anh (test code 47.1 cm/s = 9619367142) MV Peak A Anh (test code 44.6 cm/s = 2902901281) E/A ratio (test code = ratio 5928736354) E wave decelartion time 0.45 s (test code = 8890923692) LA Volume Index (BP) 29.3 mL/m2 (test code = 1360663667) LA volume (BP) (test 61.5 mL code = 8526330308) LVOT peak anh (test code 84.6 cm/s = 9997298877) LVOT mn grad (test code mmHg = 4441727494) SV(MOD-bp) (test code = 66.70 mL 0475001287) LA size (test code = 5.7 cm 4660515763) LAV(MOD-sp2) (test code 63.40 mL = 1377075842) LAV(MOD-sp4) (test code 51.10 mL = 6421702711) Tapse (test code = 2.44 cm 1556107644) Ao peak anh (test code = 123.5 cm/s 7170561240) AV LVOT peak gradient mmHg (test code = 1891821521) LVOT peak VTI (test code 16.3 cm = 4885283662) AV area peak anh (test 2.4 cm2 code = 6239608053) ACS (test code = 1.94 cm 7660628239) LV V1 mean (test code = 52.00 cm/s 5365999732) Ao max PG (test code = 6.10 mm[Hg] 3390566140) MV Prop V (test code = 86.10 cm/s 3610101033) Ao root annulus (test 3.5 cm code = 9093111789) Ao root diam (test code 3.50 cm = 3977685382) AV peak gradient (test mmHg code = 0641700670) Aortic root (test code = 3.5 cm 5299639290) EF (test code = 38 % 4911669394) PW (test code = 1.21 cm 0.6-1.9 7621466665) EF - 2D (test code = 42.20 % 22086493) Left Ventricular Stroke 66.7 mL Volume by 2-D Biplane-MOD (test code = 7512533) Interventricular Septum 1.20 cm Diastolic Thickness by 2D (test code = 8289347) Radiology Study observation (narrative) (test code = 28146-5) ADILENE (test code = ADILENE) ?Left?Ventricle: Left [...] mL of Lumason ultrasound enhancing agent used. [facility] [id number] 17:36:46 Test Item Value Reference Interpretation Comments Range TROPONIN I (test 2.820 ng/mL See_Comment H Hemolyzed code = 4478047827) specimen [Automated message] The system which generated [...] biotin. Lab Interpretation Abnormal (test code = 65982-4) [facility] [id number] 17:06:05 Test Item Value Reference Range Interpretation Comments APTT Patient (test code See_Comment H [Au tomated message] = 3173-2) The system [employer] generated this result transmitted ref erence range: 26 - 36 Seconds. The reference range was not used to int erpret this result as normal/abnormal . Lab Interpretation (test Abnormal code = 63142-7) [facility] WITH [id number] 09:42:31 Test Item Value Reference Range Interpretation [...] (test code = 57.4 fL 38.5-51.6 H 74502-5) RDW-CV (test code = 16.1 % 12.1-15.4 H 788-0) PLT (test code = See_Comment [Automated 777-3) message] The system which generated this result transmit gilberto reference range : 150 - 328 10*3/ ?L. The reference range was not u sed to interpret th is result as normal/abnormal . MPV (test code = 10.5 fL 9.8-13 42530-1) NRBC/100 WBC (test See_Comment [Automat ed code = 6422668511) message] The system which generated this result transmit gilberto reference range : 0.0 - 10.0 /100 WBCs. The reference range was not used to interpret this result as normal/abnormal . NRBC x10^3 (test code See_Comment [Auto mated = 5802223688) message] The system which generated this result transmit gilberto reference range : 10*3/?L. The reference range was not used to interpret this result as normal/abnormal . GRAN MAT (NEUT) % 87.2 % (test code = 770-8) IMM GRAN % (test code 1.50 % = 8887348193) LYMPH % (test code = 5.9 % 736-9) MONO % (test code = 5.1 % 5905-5) EOS % (test code = 0.2 % 713-8) BASO % (test code = 0.1 % 706-2) GRAN MAT x10^3(ANC) 10.38 10*3/uL 1.99-6.95 H (test code = 8022237916) IMM GRAN x10^3 (test 0.18 10*3/uL 0-0.06 H code = 8073282193) LYMPH x10^3 (test code 0.70 10*3/uL 1.09-3.23 L = 731-0) MONO x10^3 (test code 0.61 10*3/uL 0.36-1.02 = 742-7) EOS x10^3 (test code = 0.06-0.53 L 711-2) BASO x10^3 (test code 0.01-0.09 = 704-7) Lab Interpretation Abnormal (test code = 41796-4) [facility] [id number] 09:27:32 Test Item Value Reference Interpretation Comments Range TROPONIN I (test 3.000 ng/mL See_Comment H [Automated code = 1420798423) message] The system which generated this result [...] biotin. Lab Interpretation Abnormal (test code = 54648-6) [facility]. METABOLIC PANEL (04315)2022-02-10 09:17:29 Test Item Value Reference Range Interpretation Comments NA (test code = 139 mmol/L 135-145 1130585155) K (test code = 3.9 mmol/L 3.5-5 8796791410) CL (test code = 114 mmol/L 98-108 H 7474038396) CO2 TOTAL (test code = 23 mmol/L 23-31 5111729644) AGAP (test code = 2-16 2238243433) BUN (test code = 42 mg/dL 7-23 H 5049496860) GLUCOSE (test code = 86 mg/dL 70-110 0152262525) CREATININE (test code = 1.29 mg/dL 0.6-1.25 H 7626826183) TOTAL BILI (test code = 0.6 mg/dL 0.1-1.4 8863351942) CALCIUM (test code = 8.2 mg/dL 8.6-10.6 L 2746069708) T PROTEIN (test code = 4.5 g/dL 6.3-8.2 L 0573190036) ALBUMIN (test code = 2.2 g/dL 3.5-5 L 3766080395) ALK PHOS (test code = 59 U/L 34-122 9364336311) ALTv (test code = 17 U/L 5-50 1742-6) AST(SGOT) (test code = 58 U/L 13-40 H 9077394785) eGFR (test code = mL/min/1.73m2 7863457450) ADILENE (test code = ADILENE) Association of [...] tests). Lab Interpretation Abnormal (test code = 29172-7) [facility] 09:17:29 Test Item Value Reference Range Interpretation Comments MAGNESIUM (test code = 7175901910) 2.1 mg/dL 1.7-2.4 Lab Interpretation (test code = Normal 93487-2) [facility] [id number] 09:17:09 Test Item Value Reference Range Interpretation Comments APTT Patient (test code See_Comment H [Au tomated message] = 7423-2) The system [employer] generated this result transmitted ref erence range: 26 - 36 Seconds. The reference range was not used to int erpret this result as normal/abnormal . Lab Interpretation (test Abnormal code = 01993-8) [facility] 20 + Lactic [id number] 07:50:00 Test Item Value Reference Range Interpretation Comments PH (test code = 2) 7.35-7.45 PCO2 (test code = See_Comment [Automate d 8611621136) message] The sy stem which generated this result transmitted reference range : 35 - 45 mmHg. The reference range was not used to interpret this result as normal/abnormal . PO2 (test code = See_Comment H [Automated 5551093921) message] The sy stem which generated this result transmitted reference range : 80 - 100 mmHg. The reference range was not used to interpret this result as normal/abnormal . HCO3 (test code = See_Comment [Automate d 8183975310) message] The sy stem which generated this result transmitted reference range : 22 - 26 mEq/L. The reference range was not used to interpret this result as normal/abnormal . BE (test code = See_Comment [Automated 1337612468) message] The sy stem which generated this result transmitted reference range : -3.0 - 3.0 mEq/ L. The reference r lisa was not used to interpret this result as normal/abnormal . THB (test code = 8.6 g/dL 13.5-18 L 5245820775) %O2HB (test code = 97.5 % 94-99 5426485693) %COHB ART (test code = 0.3 % 0-1.5 1255644742) %METHB ART (test code = 0.6 % 0.4-1.5 5482764135) VOL%O2 ART (test code = 12.1 % 15-23 L 0167849633) NA (test code = 138 mmol/L 135-145 1385905265) K+ (test code = 3.8 mmol/L 3.5-5 4045925516) AC CA IONZ (test code = 4.70 mg/dL 4.5-5.3 3097732743) GLUCOSE (test code = 92 mg/dL 70-110 2036850647) LACTIC ACID (test code 0.90 mmol/L 0.5-2.2 = 3870597871) Lab Interpretation Abnormal (test code = 46286-3) [facility] Unfractionated Heparin 2022-02-10 06:12:55 Test Item Value Reference Range Interpretation Comments Anti-Xa UFH (test code = See_Comment H [A utomated message] 3274-8) The system [employer] generated this result transmitted ref erence range: 0.30 - 0 .70 IU/mL. The refe rence range was not u sed to interpret this result as normal/abnor mal. Lab Interpretation (test Abnormal code = 20261-0) [facility] [id number]-[id number] 00:05:44 Test Item Value Reference Range Interpretation Comments NT-proBNP (test code 07653 pg/mL See_Comment H [Autom ated = 3703776442) message] The system which generated this result transmitted reference range : <=450. The reference range was not used to interpret this result as normal/abnormal . ADILENE (test code = ADILENE) Biotin has been reported to cause a negative bias, interpret results relative to patient's use of biotin. Lab Interpretation Abnormal (test code = 68071-6) [facility] [id number] 23:53:19 Test Item Value Reference Interpretation Comments Range TROPONIN I (test 3.400 ng/mL See_Comment H [Automated code = 5339699362) message] The system which generated this result [...] biotin. Lab Interpretation Abnormal (test code = 40430-5) [facility] METABOLIC PANEL (65305)2022-02-09 23:40:58 Test Item Value Reference Range Interpretation Comments NA (test code = 140 mmol/L 135-145 3367722324) K (test code = 4.2 mmol/L 3.5-5 2114853876) CL (test code = 113 mmol/L 98-108 H 3428468913) CO2 TOTAL (test code = 24 mmol/L 23-31 4822249347) AGAP (test code = 2-16 6966340256) BUN (test code = 41 mg/dL 7-23 H 2545663867) GLUCOSE (test code = 88 mg/dL 70-110 7642006231) CREATININE (test code = 1.09 mg/dL 0.6-1.25 8273434346) TOTAL BILI (test code = 0.5 mg/dL 0.1-1.8 5027976757) CALCIUM (test code = 8.6 mg/dL 8.6-10.6 8938046289) T PROTEIN (test code = 4.5 g/dL 6.3-8.2 L 4227754674) ALBUMIN (test code = 2.4 g/dL 3.5-5 L 1284524138) ALK PHOS (test code = 71 U/L 34-122 8635185573) ALTv (test code = 19 U/L 5-50 1742-6) AST(SGOT) (test code = 26 U/L 13-40 8066298195) eGFR (test code = mL/min/1.73m2 4807564066) ADILENE (test code = ADILENE) Association of [...] tests). Lab Interpretation Abnormal (test code = 84145-6) [id number] 23[facility]40:38 Test Item Value Reference Range Interpretation Comments LIPASE (test code = 9375918736) 160 U/L 0-220 Lab Interpretation (test code = Normal 01964-6) [facility]IV[facility] THRMPLAS [id number] 23:39:37 Test Item Value Reference Range Interpretation Comments APTT Patient (test See_Comment [Automat ed code = 3173-2) message] The system which generated this result transmitted reference range : 23 - 38 Seconds . The reference range was not used to interpr et this result as normal/abnormal . ADILENE (test code = ADILENE) The [facility] patient population mean normal value for aPTT is 30 seconds. Lab Interpretation Normal (test code = 58124-0) [facility] PasoPROTHROMBIN TIME / [id number] 23:37:36 Test Item Value Reference Range Interpretation [...] tions. Lab Interpretation (test Abnormal code = 67349-3) [facility] WITH [id number] 23:30:38 Test Item Value Reference Range Interpretation [...] (test code = 55.3 fL 38.5-51.6 H 73947-6) RDW-CV (test code = 15.9 % 12.1-15.4 H 788-0) PLT (test code = See_Comment [Automated 777-3) message] The system which generated this result transmit gilberto reference range : 150 - 328 10*3/ ?L. The reference range was not u sed to interpret th is result as normal/abnormal . MPV (test code = 10.8 fL 9.8-13 96547-2) NRBC/100 WBC (test See_Comment [Automat ed code = 4931664032) message] The system which generated this result transmit gilberto reference range : 0.0 - 10.0 /100 WBCs. The reference range was not used to interpret this result as normal/abnormal . NRBC x10^3 (test code See_Comment [Auto mated = 7970250650) message] The system which generated this result transmit gilberto reference range : 10*3/?L. The reference range was not used to interpret this result as normal/abnormal . GRAN MAT (NEUT) % 88.9 % (test code = 770-8) IMM GRAN % (test code 0.90 % = 7481668715) LYMPH % (test code = 5.2 % 736-9) MONO % (test code = 4.8 % 5905-5) EOS % (test code = 0.1 % 713-8) BASO % (test code = 0.1 % 706-2) GRAN MAT x10^3(ANC) 12.55 10*3/uL 1.99-6.95 H (test code = 1253309011) IMM GRAN x10^3 (test 0.12 10*3/uL 0-0.06 H code = 2484797871) LYMPH x10^3 (test code 0.73 10*3/uL 1.09-3.23 L = 731-0) MONO x10^3 (test code 0.67 10*3/uL 0.36-1.02 = 742-7) EOS x10^3 (test code = 0.06-0.53 L 711-2) BASO x10^3 (test code 0.01-0.09 = 704-7) Lab Interpretation Abnormal (test code = 60967-4) [facility] 20 + Lactic [id number] 23:03:37 Test Item Value Reference Range Interpretation Comments PH (test code = 2) 7.35-7.45 H PCO2 (test code = See_Comment L [Automate d 2336583135) message] The sy stem which generated this result transmitted reference range : 35 - 45 mmHg. The reference range was not used to interpret this result as normal/abnormal . PO2 (test code = See_Comment L [Automated 2141199816) message] The sy stem which generated this result transmitted reference range : 80 - 100 mmHg. The reference range was not used to interpret this result as normal/abnormal . HCO3 (test code = See_Comment L [Automate d 1358492637) message] The sy stem which generated this result transmitted reference range : 22 - 26 mEq/L. The reference range was not used to interpret this result as normal/abnormal . BE (test code = See_Comment [Automated 2652675525) message] The sy stem which generated this result transmitted reference range : -3.0 - 3.0 mEq/ L. The reference r lisa was not used to interpret this result as normal/abnormal . THB (test code = 9.3 g/dL 13.5-18 L 6895100676) %O2HB (test code = 95.6 % 94-99 7468919457) %COHB ART (test code = 0.3 % 0-1.5 2850283647) %METHB ART (test code = 0.3 % 0.4-1.5 L 2618350023) VOL%O2 ART (test code = 12.6 % 15-23 L 5056736261) NA (test code = 138 mmol/L 135-145 7082594253) K+ (test code = 4.0 mmol/L 3.5-5 3571268751) AC CA IONZ (test code = 5.00 mg/dL 4.5-5.3 5460422173) GLUCOSE (test code = 87 mg/dL 70-110 9985024724) LACTIC ACID (test code 0.92 mmol/L 0.5-2.2 = 3451172201) Lab Interpretation Abnormal (test code = 09707-5) [facility] Paso[facility] [id number] 11:02:00 Test Item Value Reference Range Interpretation Comments GLUCOSE BEDSIDE (test 80 MG/DL 70-110 N [facility] med by certified code = GLUBED) 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 [facility] GLUCOSE [id number] 15:49:00 Test Item Value Reference Range Interpretation Comments GLUCOSE BEDSIDE (test 158 MG/DL 70-110 H Perfor med by certified code = GLUBED) 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 [facility] CBC W/AUTO [id number] 12:27:00 Test Item Value Reference Range Interpretation [...] REQUIRED (test NO code = MDIFF) GLUCOSE [id number] 11:34:00 Test Item Value Reference Range Interpretation Comments GLUCOSE BEDSIDE (test 119 MG/DL 70-110 H Perfor med by certified code = GLUBED) 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 [facility] GLUCOSE [id number] 07:34:00 Test Item Value Reference Range Interpretation Comments GLUCOSE BEDSIDE (test 99 MG/DL 70-110 N Perfor med by certified code = GLUBED) 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 [facility] GLUCOSE [id number] 04:56:00 Test Item Value Reference Range Interpretation Comments GLUCOSE BEDSIDE (test 120 MG/DL 70-110 H Perfor med by certified code = GLUBED) 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 [facility] GLUCOSE [id number] 20:51:00 Test Item Value Reference Range Interpretation Comments GLUCOSE BEDSIDE (test 108 MG/DL 70-110 N Perfor med by certified code = GLUBED) 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 [facility] GLUCOSE [id number] 15:59:00 Test Item Value Reference Range Interpretation Comments GLUCOSE BEDSIDE (test 78 MG/DL 70-110 N Perfor med by certified code = GLUBED) 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 [facility] GLUCOSE [id number] 10:48:00 Test Item Value Reference Range Interpretation Comments GLUCOSE BEDSIDE (test 111 MG/DL 70-110 H Perfor med by certified code = GLUBED) 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 [facility] GLUCOSE [id number] 08:01:00 Test Item Value Reference Range Interpretation Comments GLUCOSE BEDSIDE (test 78 MG/DL 70-110 N Perfor med by certified code = GLUBED) 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 [facility] BASIC METABOLIC [id number] 07:25:00 Test Item Value Reference Range Interpretation [...] code = 8.6 mg/dL 8.0-10.5 N CA) [id number] 07:25:00 Test Item Value Reference Range Interpretation Comments PHOSPHOROUS (test code = PHOS) 3.6 MG/DL 2.5-4.9 N [id number] 07:25:00 Test Item Value Reference Range Interpretation Comments MAGNESIUM (test code = MAG) 1.93 mg/dL 1.80-2.40 N CALCIUM [id number] 07:25:00 Test Item Value Reference Range Interpretation Comments CALCIUM IONIZED (test code = LYLA) 1.19 MMOL/L 1.12-1.32 N CBC W/AUTO [id number] 07:24:00 Test Item Value Reference Range Interpretation [...] 0.02 x10 3/uL 0.0-0.1 N NRBC#) GLUCOSE [id number] 21:05:00 Test Item Value Reference Range Interpretation Comments GLUCOSE BEDSIDE (test 136 MG/DL 70-110 H Perfor med by certified code = GLUBED) 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 [facility] GLUCOSE [id number] 16:15:00 Test Item Value Reference Range Interpretation Comments GLUCOSE BEDSIDE (test 118 MG/DL 70-110 H Perfor med by certified code = GLUBED) 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 [facility] GLUCOSE [id number] 14:00:00 Test Item Value Reference Range Interpretation Comments GLUCOSE BEDSIDE (test 110 MG/DL 70-110 N Perfor med by certified code = GLUBED) 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 [facility] GLUCOSE [id number] 11:22:00 Test Item Value Reference Range Interpretation Comments GLUCOSE BEDSIDE (test 146 MG/DL 70-110 H Perfor med by certified code = GLUBED) 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 [facility] BASIC METABOLIC [id number] 05:37:00 Test Item Value Reference Range Interpretation [...] code = 8.4 mg/dL 8.0-10.5 N CA) [id number] 05:37:00 Test Item Value Reference Range Interpretation Comments PHOSPHOROUS (test code = PHOS) 4.0 MG/DL 2.5-4.9 N [id number] 05:37:00 Test Item Value Reference Range Interpretation Comments MAGNESIUM (test code = MAG) 1.90 mg/dL 1.80-2.40 N CALCIUM [id number] 05:37:00 Test Item Value Reference Range Interpretation Comments CALCIUM IONIZED (test code = LYLA) 1.25 MMOL/L 1.12-1.32 N CBC W/AUTO [id number] 05:01:00 Test Item Value Reference Range Interpretation [...] = MDIFF) - XR SWLW FUNC W/C [id number] 00:00:00 [facility] : 1940 Sex: M FAX: Tyrone Laird MD [phone] [place]: St: ADM FAX: Vinny Rosenthal MD [phone] FAX: Yaa Sifuentes DO [phone] Name: AMADOU MARCELINO ERASMO [facility] Earnestine Gibbons : 1940 Age/S: 81/M [address] [place] [address] Unit #: [id number] Loc: [address] [address] Phys: Tyrone Laird MD Acct: [id number] Dis Date: Status: ADM IN PHONE #: [phone] Exam Date: 02/06/2022 1207 FAX #: [phone] Reason: TO ADVANCE FROM NECTAR THICK TO THIN LIQUIDS EXAMS: CPT CODE: [id number] XR SWLW FUNC W/C V 33648 PROCEDURE INFORMATION: Exam: FL Swallowing Function with Cine or Video Exam date and time: 02/06/2022 11:30 AM Age: 81 years old Clinical indication: Choking sensation; Additional info: To advance from nectar thick tothin liquids TECHNIQUE: Imaging protocol: Swallowing function, with cineradiography/ videoradiograph. Guided with fluoroscopy. Exam supervised by facility personnel. Dynamic fluoroscopy assessment of the swallowing function was performed by the Speech Pathologist. The Radiologist WAS present in the room and performed the fluoroscopy portion of the study. Oral contrast of multiple consistencies (nectar, thin and barium coated cracker) were administered using a straw. COMPARISON: CR XR CHEST 1V 02/05/2022 5:44 AM RADIATION DOSE METRICS: Fluoroscopy time (seconds): seconds= 111 Number of fluoro spot images: images= 8 Reference air kerma (ARNAUD): 5.6 mGy FINDINGS: Assistants: None. Silviculture Forester: Unremarkable other than moderate mid cervical spondylosis. Procedure summary: Normal swallowing with solids and liquids. No penetration or aspiration. IMPRESSION: Unremarkable swallowing study. Please refer to the final Speech Pathology report for complete description. at 1226 Reported and signed by: Cyril Posey M.D. 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 [facility] GLUCOSE [id number] 11:32:00 Test Item Value Reference Range Interpretation Comments GLUCOSE BEDSIDE (test 113 MG/DL 70-110 H Perfor med by certified code = GLUBED) 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 [facility] BASIC METABOLIC [id number] 06:28:00 Test Item Value Reference Range Interpretation [...] code = 8.1 mg/dL 8.0-10.5 N CA) [id number] 06:28:00 Test Item Value Reference Range Interpretation Comments PHOSPHOROUS (test code = PHOS) 3.3 MG/DL 2.5-4.9 N [id number] 06:28:00 Test Item Value Reference Range Interpretation Comments MAGNESIUM (test code = MAG) 1.92 mg/dL 1.80-2.40 N CALCIUM [id number] 06:28:00 Test Item Value Reference Range Interpretation Comments CALCIUM IONIZED (test code = LYLA) 1.19 MMOL/L 1.12-1.32 N CBC W/AUTO [id number] 05:30:00 Test Item Value Reference Range Interpretation [...] NO = MDIFF) - XR CHEST 1 [id number] 00:00[facility]00 [facility] : 1940 Sex: M FAX: Susanne Holliday [place]: St: [facility] FAX: Vinny Rosenhtal MD [phone] FAX: Yaa Sifuentes [phone] Name: AMADOU MARCELINO ERASMO [facility] : 1940 Age/S: 81/M [address] [place] [address] Bl Unit #: [id number] Loc: [address] [place] [address] Phys: HollidaySusanne GUZMAN Acct: [id number] Dis Date: Status: ADM IN PHONE #: [phone] Exam Date: 02/05/2022641 FAX #: [phone] Reason: follow pleural effsuions. EXAMS: CPT CODE: [id number] XR CHEST 1 V 81055 PROCEDURE INFORMATION: Exam: XR Chest Exam date and time: 02/05/2022 5:44 AM Age: 81 years [...] congestive cardiac failure with right pleural effusion. 2.No change in size of the left pleural effusion. at 0754 Reported and signed by: Lizandro Chester M.D. 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 [facility] GLUCOSE [id number] 17:21:00 Test Item Value Reference Range Interpretation Comments GLUCOSE BEDSIDE (test 129 MG/DL 70-110 H Perfor med by certified code = GLUBED) 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 [facility] GLUCOSE [id number] 11:31:00 Test Item Value Reference Range Interpretation Comments GLUCOSE BEDSIDE (test 112 MG/DL 70-110 H [facility] by certified code = GLUBED) 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 [facility] COMPREHENSIVE METABOLIC [id number] 05:51:00 Test Item Value Reference Range Interpretation [...] 20-125 N TOTAL (test code = ALKP) [id number] 05:51:00 Test Item Value Reference Range Interpretation Comments PHOSPHOROUS (test code = PHOS) 3.5 MG/DL 2.5-4.9 N [id number] 05:51:00 Test Item Value Reference Range Interpretation Comments MAGNESIUM (test code = MAG) 2.01 mg/dL 1.80-2.40 N CALCIUM [id number] 05:51:00 Test Item Value Reference Range Interpretation Comments CALCIUM IONIZED (test code = LYLA) 1.21 MMOL/L 1.12-1.32 N CBC W/AUTO [id number] 05:22:00 Test Item Value Reference Range Interpretation [...] 0.00 x10 3/uL 0.0-0.1 N NRBC#) GLUCOSE [id number] 00:15:00 Test Item Value Reference Range Interpretation Comments GLUCOSE BEDSIDE (test 127 MG/DL 70-110 H Perfor med by certified code = GLUBED) 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 [facility] - XR CHEST 1 [id number] 00:00:00 [facility] : 1940 Sex: MFAX: Susanne Holliday [place]: St: [facility] FAX: Vinny Rosenthal MD [phone] FAX: Yaa Sifuentes DO [phone] Name: AMADOU MARCELINO [facility] : 1940 Age/S: 81/M [address] [place] [address] Unit #: [id number] Loc: [address] [place], [place] [id number] Phys: Susanne Holliday Acct: [id number] Dis Date: Status: ADM IN PHONE #: [phone] Exam Date: 02/04/2022702 FAX #: [phone] Reason: follow pleural effsuions. 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 [facility] GLUCOSE [id number] 15:59:00 Test Item Value Reference Range Interpretation Comments GLUCOSE BEDSIDE (test 113 MG/DL 70-110 H Perfor med by certified code = GLUBED) 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 [facility] CALCIUM [id number] 10:56:00 Test Item Value Reference Range Interpretation Comments CALCIUM IONIZED (test code = LYLA) 1.06 MMOL/L 1.12-1.32 L LACTIC ACID [id number] 10:25:00 Test Item Value Reference Range Interpretation Comments LACTIC ACID REPEAT (test code = 1.5 mmol/l 0.4-1.9 N LACTR) [id number] 10:11:00 Test Item Value Reference Range Interpretation Comments PHOSPHOROUS (test code = PHOS) 2.9 MG/DL 2.5-4.9 N [id number] 10:11:00 Test Item Value Reference Range Interpretation Comments MAGNESIUM (test code = MAG) 2.27 mg/dL 1.80-2.40 N GLUCOSE [id number] 07:22:00 Test Item Value Reference Range Interpretation Comments GLUCOSE BEDSIDE (test 85 MG/DL 70-110 N [facility] med by certified code = GLUBED) 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 [facility] COMPREHENSIVE METABOLIC [id number] 06:12:00 Test Item Value Reference Range Interpretation [...] N TOTAL (test code = ALKP) LACTIC [id number] 06:07:00 Test Item Value Reference Range Interpretation Comments LACTIC ACID (test code = LACT) 2.1 mmol/L 0.4-1.9 H CBC W/AUTO [id number] 05:59:00 Test Item Value Reference Range Interpretation [...] NO = MDIFF) - XR CHEST 1 [id number] 00:00:00 [facility] : 1940 Sex: M FAX: Susanne Holliday [place]: St: [facility] FAX: Vinny Rosenthal MD [phone] FAX: Yaa Sifuentes DO [phone] Name: AMADOU MARCELINO [facility] : 1940 Age/S: 81/M [address] [place] [address] Blvd Unit #: [id number] Loc: [address] [place] [address] Phys: Susanne Holliday APRHOLLI Acct: [id number] Dis Date: Status: ADM IN PHONE #: [phone] Exam Date: 02/03/2022809 FAX #: [phone] Reason: follow pleural effsuions. EXAMS: CPT CODE: [id number] XR CHEST 1 V 99678 PROCEDURE INFORMATION: Exam: XR Chest Exam date and time: 02/03/2022 6:56 AM Age: 81 years old Clinical indication: Other: Follow pleural effsuions.TECHNIQUE: Imaging protocol: Radiologic exam of the chest. Views: 1 View. Portable AP view COMPARISON: CR XR CHEST 1V 02/02/2022 5:43 AM FINDINGS: [...] Feliciano Proctor M.D. 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 [facility] BASIC METABOLIC [id number] 16:29:00 Test Item Value Reference Range Interpretation [...] code = 8.0 mg/dL 8.0-10.5 N CA) [id number] 16:29:00 Test Item Value Reference Range Interpretation Comments MAGNESIUM (test code = MAG) 2.36 mg/dL 1.80-2.40 CALCIUM [id number] 16:29:00 Test Item Value Reference Range Interpretation Comments CALCIUM IONIZED (test code = LYLA) 1.20 MMOL/L 1.12-1.32 N [id number] 16:27:00 Test Item Value Reference Range Interpretation Comments HGBA1C% (test code = HGBA1C%) 5.8 %A1C 4.8-6.0 N GLUCOSE [id number] 16:01:00 Test Item Value Reference Range Interpretation Comments GLUCOSE BEDSIDE (test 163 MG/DL 70-110 H Perfor med by certified code = GLUBED) 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 [facility] LACTIC ACID [id number] 15:55:00 Test Item Value Reference Range Interpretation Comments LACTIC ACID REPEAT (test code = 2.3 mmol/l 0.4-1.9 H LACTR) B-TYPE NATRIURETIC [id number] 13:07:00 Test Item Value Reference Range Interpretation Comments B-TYPE NATRIURETIC PEPTIDE > 5000.0 PG/ML 0-100 H (test code = BNP) GLUCOSE [id number] 11:46:00 Test Item Value Reference Range Interpretation Comments GLUCOSE BEDSIDE (test 132 MG/DL 70-110 H Perfor med by certified code = GLUBED) 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 [facility] POC ARTERIAL BLOOD [id number] 08:39:00 Test Item Value Reference Range Interpretation Comments POC ARTERIAL BLOOD GAS PH (test 7.470 7.35-7.45 H code = POCPHA) POC ARTERIAL BLOOD GAS PCO2 (test 24.0 mmHg 35.0-45 LL code = PXMNIA1O) POC TCO2 ARTERIAL (test code = 18.2 POCTCO2) POC ARTERIAL BLOOD GAS PO2 (test 102.5 mmHg 80-100.0 H code = EETWR8T) POC HCO3 ARTERIAL (test code = 17.5 MMOL/L 22.0-26.0 LL OIPVJY5C) POC BASE EXCESS (test code = -6.2 MMOL/L -4.0-4.0 L POCBEA) POC O2 SATURATION (test code = 98.4 % 90-100 N POCO2S) ABG DELIVERY (test code = BRIGITTE) CPAP ABG VENT RESP RATE (test code = 38 /MIN RRA) ABG SITE (test code = SITEA) L Radial VIRA'S TEST (test code = ALLENS) Positive BASIC METABOLIC [id number] 08:39:00 Test Item Value Reference Range Interpretation [...] (test code = POCGLU) 173 MG/DL HEMOGLOBIN [id number] 08:39:00 Test Item Value Reference Range Interpretation Comments HEMOGLOBIN ABG (test code = HGB/ABG) 9.0 G/DL 12.5-16.9 L [id number] 08:39:00 Test Item Value Reference Range Interpretation Comments HEMATOCRIT (test code = HCT/ABG) 27 % 37.5-50.7 L POC LACTIC [id number] 08:39:00 Test Item Value Reference Range Interpretation Comments POC LACTIC ACID (test code = 2.2 mmol/l 0.9-1.7 H POCLAC) GLUCOSE [id number] 07:13:00 Test Item Value Reference Range Interpretation Comments GLUCOSE BEDSIDE (test 187 MG/DL 70-110 H [facility] med by certified code = GLUBED) 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 [facility] COMPREHENSIVE METABOLIC [id number] 04:46:00 Test Item Value Reference Range Interpretation [...] 20-125 N TOTAL (test code = ALKP) [id number] 04:46:00 Test Item Value Reference Range Interpretation Comments PHOSPHOROUS (test code = PHOS) 3.7 MG/DL 2.5-4.9 N [id number] 04:46:00 Test Item Value Reference Range Interpretation Comments MAGNESIUM (test code = MAG) 1.85 mg/dL 1.80-2.40 N CALCIUM [id number] 04:46:00 Test Item Value Reference Range Interpretation Comments CALCIUM IONIZED (test code = LYLA) 1.16 MMOL/L 1.12-1.32 N LACTIC [id number] 04:35:00 Test Item Value Reference Range Interpretation Comments LACTIC ACID (test code = LACT) 2.2 mmol/L 0.4-1.9 H CBC W/AUTO [id number] 04:25:00 Test Item Value Reference Range Interpretation [...] (test code NO = MDIFF) BASIC METABOLIC [id number] 04:03:00 Test Item Value Reference Range Interpretation [...] (test code = POCGLU) 199 MG/DL HEMOGLOBIN [id number] 04:03:00 Test Item Value Reference Range Interpretation Comments HEMOGLOBIN ABG (test code = 10.4 G/DL 12.5-16.9 L HGB/ABG) [id number] 04:03:00 Test Item Value Reference Range Interpretation Comments HEMATOCRIT (test code = HCT/ABG) 31 % 37.5-50.7 L POC LACTIC [id number] 04:03:00 Test Item Value Reference Range Interpretation Comments POC LACTIC ACID (test code = 1.1 mmol/l 0.9-1.7 N POCLAC) POC VENOUS BLOOD [id number] 04:03:00 Test Item Value Reference Range Interpretation Comments VIRA'S TEST (test code = ALLENS) Positive POC VENOUS BLOOD GAS PH (test 7.454 7.33-7.45 H code = POCPHV) POC VENOUS BLOOD GAS PCO2 (test 26.7 mmHg 43-47 LL code = [id number]) POC VENOUS BLOOD GAS PO2 (test 91.7 mmHG 10-50 H code = GTCJT5T) POC TCO2 VENOUS (test code = 19.6 HHPLVY6E) POC HCO3 VENOUS (test code = 18.8 MMOL/L 22-27 L CDXXEB2T) POC BASE EXCESS VENOUS (test code -5.2 MMOL/L -4.0-4.0 L = POCBEV) POC O2 SATURATION VENOUS (test 97.7 % 60-80 H code = BSMD3UW) VENOUS BLOOD GAS SITE (test code L Radial = SITEV) - XR CHEST 1 [id number] 00:00[facility]00 [facility] 1940 Sex: M FAX: Stephan Chen MD [phone] [place]: St: [facility] FAX: Vinny Rosenthal MD [phone] FAX: Yaa Sifuentes DO [phone] Name: AMADOU MARCELINO [facility] : 1940 Age/S: 81/M [address] [place] [address] Unit #: [id number] Loc: G.[address] [place] [address] Phys: Stephan Dodson MD Acct: [id number] Dis Date:Status: ADM IN PHONE #: [phone] Exam Date: 02/02/2022 0640 FAX #: [phone] Reason: PULMONARY EDEMA EXAMS: CPT CODE: [id number] XR CHEST 1 V 19742 PROCEDURE INFORMATION: Exam: XR Chest Exam date [...] 2. Stable small bilateral pleural effusions. at 07 Reported and signed by: Feliciano Proctor M.D. CC: Stephan Dodson MD; Vinny Waggoner MD; Yaa Mayes Technologist: RT Carmen(Tomás) Trnscrd Date/Time/By: 02/02/2022 (726) : By: [email or web address] Orig Print D/T: S: 02/02/2022 (07) PAGE 1 Signed Report- XR SHOULDER 2 + V [id number] 00:00:00 [facility] : 1940 Sex: M FAX: Mary Carrasco MD [phone] [place]: St: [facility] FAX: Vinny Rosenthal MD [phone] FAX: Yaa Sifuentes DO [phone] Name: AMADOU MARCELINO ERASMO [facility] : 1940 Age/S: 81/M [address] [place] [address] Unit #: [id number] Loc: [address] [place] [address] Phys: Mary Benitez MD Acct: [id number] Dis Date: Status: ADM IN PHONE #: [phone] Exam Date: 02/01/20221707 FAX #: [phone] Reason: pain EXAMS: CPTCODE: [id number] XR SHOULDER 2 + V LT [address]289 PROCEDURE INFORMATION: Exam: XR Left Shoulder Exam date and time: 02/01/2022 5:08 PM Age: 81 years old Clinical indication: Pain; Shoulder; Left; Additional info: Pain, bruising of shoulder TECHNIQUE: Imaging protocol: Radiologic exam of the Left shoulder. Views: 2 or more views. AP INT/ EXT ROTATION, SCAPULAR Y COMPARISON: CR XR CHEST 1V 01/31/2022 7:50 PM FINDINGS: Bones/joints: There is normal alignment at the glenohumeral joint. There are no fractures ordislocations. The acromioclavicular joint and coracoclavicular spaces are intact. The visualized scapula and clavicle are unremarkable. Soft tissues: There are no radiopaque foreign bodies. Notes: If there is further concern, follow-up radiographs or MRI of the shoulder may be performed for complete assessment. IMPRESSION: No acute findings. at 0814 Reported and signed by: Feliciano Proctor M.D. CC: Mary Benitez MD; Vinny Waggoner MD; Yaa Mcclain DO Technologist: MARLON Dougherty) Trnscrd Date/Time/By: 02/02/2022 (813): By: [email or web address] Orig Print D/T: S: 02/02/2022 (813) PAGE 1 Signed Report BASIC METABOLIC [id number] 23:23:00 Test Item Value Reference Range Interpretation [...] 8.6 mg/dL 8.0-10.5 N CA) CBC W/AUTO [id number] 23:12:00 Test Item Value Reference Range Interpretation [...] REQUIRED (test NO code = MDIFF) GLUCOSE [id number] 14:02:00 Test Item Value Reference Range Interpretation Comments GLUCOSE BEDSIDE (test 115 MG/DL 70-110 H Perfor med by certified code = GLUBED) 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 [facility] BASIC METABOLIC [id number] 07:55:00 Test Item Value Reference Range Interpretation [...] be done morning of Heart CathCBC W/AUTO [id number] 07:33:00 Test Item Value Reference Range Interpretation [...] morning of Heart Cath- XR CHEST 1 [id number] 00:00:00 [facility] : 1940 Sex: M FAX: Stephan Chen MD [phone] [place]: St: ADM FAX: Vinny Rosenthal MD [phone] FAX: Yaa Sifuentes DO [phone] Name: AMADOU MARCELINO ERASMO [facility] [place] : 1940 Age/S: 81/M [address] [place], [place] [address] Unit #: [id number] Loc: .[address] [place] [address] Phys: Stephan Dodson MD Acct: [id number] Dis Date:Status: ADM IN PHONE #: [phone] Exam Date: 02/01/20222208 FAX #: [phone] Reason: PULMONARY EDEMA/SOB EXAMS: CPT CODE: [id number] XR CHEST 1 V 66200 PROCEDURE INFORMATION: Exam: XR Chest Examdate and time: 02/01/2022 10:05 PM Age: 81 years old Clinical indication: Shortness of breath and other: Pulmonary edema; Additional info: Pulmonary edema/sob TECHNIQUE: Imaging protocol: Radiologic exam of the chest. Views: 1 view. COMPARISON: CR XR CHEST 1V 01/31/2022 7:50 PM FINDINGS: Lungs: Lungs are adequately expanded. Azygos lobe and fissure are incidentally noted. Moderate hazy, ground-glass opacities are present throughout both lungs. Pleural spaces: There are small bilateral pleural effusions. No pneumothorax. Heart/Mediastinum: Heart size is within normal limits. Tortuosity of the thoracic aorta is seen. Bones/joints: Unremarkable. IMPRESSION: Moderate hazy ground-glass opacities are present bilaterally, associated with small bilateral pleural effusions. Possible etiologies include pulmonary edema and pneumonia. Please correlate clinically. at 2273 Reported and signed by: Radha Downs M.D. CC: Stephan Dodson MD; Vinny Waggoner MD; Yaa Mcclain DO Technologist: Lisa Morrison, (R) Trnscrashad Date/Time/By:02/01/2022 (3759) : By: Manda Livingston Print D/T: S: 02/01/2022 (3644) PAGE 1 Signed Report- XR CHEST 1 [id number] 00:00:00 [facility] : 1940 Sex: M FAX: Vinny Rosenthal MD [phone] [place]: St: ADM FAX: Cedrick Peterson [phone] -------- Name: AMADOU MARCELINO [facility] : 1940 Age/S: 81/M [address] [place] [address] Unit #: [id number] Loc: G[address] [place] [address] Phys: Cedrick PetersonP Acct: [id number] Dis Date: Status: ADM IN PHONE #: [phone] Exam Date: 01/31/20221951 FAX #: [phone] Reason: PRE PCI EXAMS: CPT CODE: [id number] XR CHEST 1 V 80303 PROCEDURE INFORMATION: Exam: XR Chest Exam date and time: 01/31/2022 7:50 PM Age: 81 years old Clinical indication: Shortness of breath; Additional info: Pre pci TECHNIQUE: Imaging protocol: Radiologic exam of the chest. Views: 1 view. COMPARISON: No relevant prior studies available. FIND INGS: Lungs: Low lung volumes. Bilateral interstitial and streaky opacities of the lungs with mild pulmonary vascular congestion. Left basilar airspace disease. Pleural spaces: No pneumothorax or pleural effusion. Heart/Mediastinum: Heart size is enlarged. Vasculature: Tortuosity of the aorta. Bones/joints: No acute osseous abnormality. IMPRESSION: 1. Bilateral pulmonary opacities suggestive of inflammation versus pulmonary edema. 2. Left basilar atelectasis versus consolidation. ElectronicallySigned by Dane Rdz on 02/01/2022 at 0809 Reported and signed by: Magi Rdz M.D. 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 [facility] [id number] 15:34:00 Test Item Value Reference Range Interpretation Comments ACT-ISTAT (test code 265 SEC 74-137 H Perform ed by certified = ACTI) 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 [facility] [id number] 14:57:00 Test Item Value Reference Range Interpretation Comments ACT-ISTAT (test code 254 SEC 74-137 H Perform ed by certified = ACTI) 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 [facility] FL, ESOPH, SWALLOW FUNCTION, WITH CINE OR [id number] 14:54:00MBS w/parish SLPReason for exam:->dsphagia/aspiration/CVAFINAL REPORT EXAMINATION: [...] same day for further description. Signed: Ritika Guzman MDReport Verified Date/Time: 04/06/2020 14:54:40 Reading Location: [address] Transitional Reading Room BASI METABOLIC [id number] 01:55:00 Test Item Value Reference Range Interpretation [...] S NOT APPLICABLE FOR DIALYSIS PATIEN TS. Training And Development Coordinator ID - PIAYA LTROPONIN [id number] 01:52:00 Test Item Value Reference Range Interpretation [...] failure, acidosis, acute neurological disease, and persistent tachyarrhythmia.Training And Development Coordinator ID - PIAYA LMR, BRAIN, WITHOUT [id number] 22:32:00Unlisted Reason for Exam - Click Yes [...] helpful for further evaluation. Signed: Etienne Mancia MDRepselect specialty [facility] Verified Date/Time: 04/05/2020 22:32:21 MR, MRA, BRAIN, WITHOUT [id number] 22:26:00 Reason for exam:->Ischemic Stroke EvaluationFINAL REPORT MRA head and neck without contrast. CLINICAL HISTORY: Stroke, follow up. Ischemic stroke evaluation. COMPARISON: None. TECHNIQUE: Two- and three- dimensional psqj-oq-heqfae MRA images of the intra- and extracranial carotid and vertebral arterial circulations were obtained, from which maximal intensity projection 3-D reconstructions were created. FINDINGS: MRA neck: There is no vessel occlusion or NASCET-quantifiable stenosis in the extracranial carotid or vertebral arterial circulations. Flow is antegrade in both vertebral arteries. MRA [place]: There is novessel occlusion, flow-limiting [...] evaluation. COMPARISON: None. TECHNIQUE: Two- and three-dimensional dbgz-tg-rimbdn MRA images of the intra- and extracranial carotid and vertebral arterial circulations were obtained, from which maximal intensity projection 3-D reconstructions were created. FINDINGS: MRA neck: There is no vessel occlusion or NASCET-quantifiable stenosis in the extracranial carotid or vertebral arterial circulations. Flow is antegrade in both vertebral arteries. MRA [place]: There is no vessel occlusion, flow-limiting stenosis, or aneurysm in the intracranial carotid or vertebrobasilar arterial circulations. IMPRESSION: Negative intra- and extracranial MRAs. Signed: Etienne Mancia Verified Date/Time: 04/05/2020 22:26:03 HEMOGLOBIN [id number] 11:32:00 Test Item Value Reference Range Interpretation Comments HEMOGLOBIN A1C (BEAKER) (test code = 5.5 % 4.3-6.1 368) RAD, CHEST, 1 VIEW, NON [id number] 07:30:00Reason for exam:- >baselineShould this be performed at the bedside?->YesFINAL REPORT CLINICAL HISTORY: baseline TECHNIQUE: 1 view of the chest. COMPARIS ON: None IMPRESSION: There are no focal infiltrates or effusions. Incidental note is made of an azygos lobe. The cardiomediastinal silhouette is magnified by technique. The osseous structures appear intact. Signed: Lisa Mobley MDReport Verified Date/Time: 04/05/2020 07:30:03 Reading Location: [facility] Radiology Reading Room HEPATIC FUNCTION [id number] 07:17:00 Test Item Value Reference Range Interpretation [...] (test code = 15 U/L 6-55 347) Training And Development Coordinator ID - DBFOLATE, [id number] 06:47:00 Test Item Value Reference Range Interpretation Comments FOLATE (BEAKER) (test code = 362) > ng/mL >=7.00 Training And Development Coordinator ID - EDASIVITAMIN [id number] 05:50:00 Test Item Value Reference Range Interpretation Comments VITAMIN B12 (BEAKER) (test code = 620 pg/mL 213-816 774) Training And Development Coordinator ID - EDASITSH/FREE T4 IF [id number] 05:50:00 Test Item Value Reference Range Interpretation Comments THYROID STIMULATING HORMONE 0.513 uIU/mL 0.350-4.940 (BEAKER) (test code = 772) Training And Development Coordinator ID - EDASITROPONIN [id number] 04:27:00 Test Item Value Reference Range Interpretation [...] failure, acidosis, acute neurological disease, and persistent tachyarrhythmia.Training And Development Coordinator ID - EDASILIPID [id number] 04:24:00 Test Item Value Reference Range Interpretation [...] Borderline 130-159 High 160-189 Very High >=190 Training And Development Coordinator ID - EDASIBASIC METABOLIC [id number] 04:24:00 Test Item Value Reference Range Interpretation [...] S NOT APPLICABLE FOR DIALYSIS PATIEN TS. Training And Development Coordinator ID - [id number] 04:12:00 Test Item Value Reference Range Interpretation Comments PARTIAL THROMBOPLASTIN TIME 30.4 seconds 22.5-36.0 (BEAKER) (test code = 760) PROTHROMBIN [id number] 04:11:00 Test Item Value Reference Range Interpretation [...] mechanical heart valves.CBC W/PLT COUNT & AUTO [id number] 04:07:00 Test Item Value Reference Range Interpretation [...] 0-1 PERCENT (BEAKER) (test code = 2801) [id number] 07:24:00 Test Item Value Reference Range Interpretation Comments ACT-ISTAT (test code = ACTI) 208 SEC 74-137 H BASIC METABOLIC [id number] 08:47:00 Test Item Value Reference Range Interpretation [...] 8.7 MG/DL 8.4-10.2 N CA) CBC W/AUTO [id number] 08:17:00 Test Item Value Reference Range Interpretation [...] 0.00 K/mm3 0.0-0.1 N NRBC#) BASIC METABOLIC [id number] 06:47:00 Test Item Value Reference Range Interpretation [...] 0-189 mg/dL VERY HIGH.........>/ = 190 mg/dL [id number] 06:47:00 Test Item Value Reference Range Interpretation Comments MAGNESIUM (test code = MAG) 1.9 MG/DL 1.6-2.3 N PROTHROMBIN [id number] 06:44:00 Test Item Value Reference Range Interpretation [...] or acute myocar dial infarction. 2.0 - 3.0 3. 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 3.0 - 4.5 PTT [id number] 06:44:00 Test Item Value Reference Range Interpretation Comments PTT ACTIVATED (test code = APTT) 33.7 SECONDS 25.1-36.5 N BASIC METABOLIC [id number] 06:36:00 Test Item Value Reference Range Interpretation [...] LDL (test MG/DL 0-99 code = LDL) [id number] 06:36:00 Test Item Value Reference Range Interpretation Comments MAGNESIUM (test code = MAG) 1.9 MG/DL 1.6-2.3 N BASIC METABOLIC [id number] 06:35:00 Test Item Value Reference Range Interpretation [...] LDL (test MG/DL 0-99 code = LDL) [id number] 06:35:00 Test Item Value Reference Range Interpretation Comments MAGNESIUM (test code = MAG) 1.9 MG/DL 1.6-2.3 N BASIC METABOLIC [id number] 06:34:00 Test Item Value Reference Range Interpretation [...] LDL (test code = LDL) MG/DL 0-99 [id number] 06:34:00 Test Item Value Reference Range Interpretation Comments MAGNESIUM (test code = MAG) MG/DL 1.6-2.3 BASIC METABOLIC [id number] 06:32:00 Test Item Value Reference Range Interpretation [...] LDL (test code = LDL) MG/DL 0-99 [id number] 06:32:00 Test Item Value Reference Range Interpretation Comments MAGNESIUM (test code = MAG) MG/DL 1.6-2.3 CBC W/AUTO [id number] 06:20:00 Test Item Value Reference Range Interpretation [...] K/mm3 0.0-0.1 N NRBC#) Coronavirus 2018 nCoV [id number] 18:32:00 Test Item Value Reference Range Interpretation [...]
[2022-05-09 16:05] LABS: Absolute Lymphocytes (CBC) 1.2 K/uL (0.7-4.9); Hematocrit 30.5 % (39.6-49.0); Lymphocytes % 7.1 % (15.3-44.8); MCV 82.2 fL (80-100); MPV 8.2 fL (7.6-11.3); RBC Red Blood Cell Count 3.71 M/uL (4.33-5.43)
[2022-05-09 16:17] LABS: Protime INR 2.13
[2022-05-09 16:26] LABS: Albumin 2.8 g/dL (3.4-5.0); Bilirubin Direct 0.1 mg/dL (0-0.2); Bilirubin Total 0.3 mg/dL (0.2-1.0); Potassium 3.3 mmol/L (3.5-5.1); Protein, Total 6.3 g/dL (6.4-8.2)
--- NOTE | 2022-05-09 16:28 | RAD REPORT ---
EXAM DESCRIPTION: RAD - Chest Single View - 05/09/2022 4:17 pm CLINICAL HISTORY: bleeding Chest pain. COMPARISON: Chest Single View dated 04/02/2022; Chest Single View dated 03/31/2022; Chest Single View dated 01/27/2022; Chest Single View dated 10/05/2021 FINDINGS: Portable technique limits examination quality. The lungs are grossly clear. Trace bilateral pleural effusions. The heart is normal in size. No displ aced fractures. IMPRESSION: Trace bilateral pleural effusions.
[2022-05-09 16:29] LABS: Troponin High Sensitivity 82.7 pg/mL (<58.9)
--- NOTE | 2022-05-09 17:17 | RAD REPORT ---
EXAM DESCRIPTION: CTAbdomen Pelvis W Contrast - 05/09/2022 5:09 pm CLINICAL HISTORY: Abdominal pain. Abdominal pain, acute, nonlocalized COMPARISON: Abdomen Pelvis W Contrast dated 12/11/2021; Chest Single View dated 04/02/2022 TECHNIQUE: Biphasic CT imaging of the abdomen and pelvis was performed with 100 ml non-ionic IV cont rast. All CT scans are performed using dose optimization technique as appropriate and may include automated exposure control or mA/KV adjustment according to patient size. FINDINGS: Small bilateral pleural effusions.The lung bases are mildly emphysematous. Multiple hepatic cysts are present, benign in appearance. No intra or extrahepatic biliary tree dilat ation. The spleen, pancreas adrenal glands normal. Small stone present left kidney without significan t hydronephrosis. No right renal calculus. No hydronephrosis. No bowel obstruction, free air, free fluid or abscess. Mild inflammation is seen surrounding the sigm oid colon in the left lower quadrant pelvis suggesting mild diverticulitis. The appendix is normal. No evidence of significant lymphadenopathy. Moderate lumbar degenerative changes. IMPRESSION: Mild acute diverticulitis of sigmoid colon suspected. No abscess. After appropriate kailee tment, colonoscopy may be useful for direct visualization. Left renal calculus without hydronephrosis.
[2022-05-09] MEDS ORDERED: NA CHLORIDE 0.9% 1,000 ML ONE (17:19)
[2022-05-09] MEDS ORDERED: NA CHLORIDE 0.9% 100 ML ONE (17:56)
[2022-05-09] MEDS ORDERED: PIPERACIL/TAZO 3.375 GM VIAL IV ONE (17:57)
--- NOTE | 2022-05-09 18:04 | EDPHYS ---
Physician Documentation [facility] Name: Jp Sun Age: 81 yrs Sex: Male : 1940 Arrival Date: 05/09/2022 Time: 15:26 Bed 6 Private MD: Erickson Coleman ED Physician Israel Frias HPI: 05/09 17:52 This 81 yrs old Male presents to ER via Wheelchair with complaints of Rectal shannon Bleeding, Blood Pressure Problem - low. 17:52 The patient presents to the emergency department with bleeding from the rectum/anus, shannon that is mild. Onset: The symptoms/episode began/occurred today. Context: the patient has no known special context relating to the rectal area complaint(s). Modifying factors: The symptoms are alleviated by nothing, The symptoms are aggravated by nothing. The patient has not experienced similar symptoms in the past. Historical: - Allergies: 15:40 No Known Allergies; iw - Home Meds: 15:40 acetaminophen 325 mg Oral tab 1 tab every 4 hours [Active]; amiodarone 200 mg Oral tab iw 1 tab once daily [Active]; apixaban 2.5 mg oral tab 1 tab 2 times per day [Active]; atorvastatin 10 mg oral tab 1 tab once daily [Active]; clopidogrel 75 mg oral tab 1 tab once daily [Active]; ferrous sulfate 300 mg (60 mg iron) Oral tab daily [Active]; fluticasone furoate 50 mcg nasal spsn twice a day [Active]; furosemide 20 mg Oral tab 1 tab once daily [Active]; gabapentin 300 mg oral tab twice a day [Active]; guaifenesin 400 mg Oral tab twice a day [Active]; lansoprazole 30 mg oral cpDR 1 cap once daily [Active]; losartan 50 mg oral tab 1 tab once daily [Active]; melatonin 5 mg Oral cap daily [Active]; metoprolol tartrate 25 mg Oral tab 1 tab 2 times per day [Active]; pyridostigmine bromide 60 mg oral tab twice a day [Active]; sertraline 50 mg oral tab 1 tab once daily [Active]; - PMHx: 15:40 Atrial fibrillation; Difficulty swallowing; Hypertension; Sleep Apnea; TIA; iw - PSHx: 15:40 feeding tube; Prostate surgery; iw - Immunization history:: Adult Immunizations up to date, Client reports receiving the 2nd dose of the Covid vaccine. - Social history:: Smoking status: Patient denies any tobacco usage or history of. Patient/guardian denies using alcohol. - Family history:: not pertinent. ROS: 17:52 Constitutional: Negative for fever, chills, and weight loss, Eyes: Negative for injury, shannon pain, redness, and discharge, ENT: Negative for injury, pain, and discharge, Neck: Negative for injury, pain, and swelling, Cardiovascular: Negative for chest pain, palpitations, and edema, Respiratory: Negative for shortness of breath, cough, wheezing, and pleuritic chest pain, Back: Negative for injury and pain, : Negative for injury, bleeding, discharge, and swelling, MS/Extremity: Negative for injury and deformity, Skin: Negative for injury, rash, and discoloration, Neuro: Negative for headache, weakness, numbness, tingling, and seizure, Psych: Negative for depression, anxiety, suicide ideation, homicidal ideation, and hallucinations, Allergy/Immunology: Negative for hives, rash, and allergies, Endocrine: Negative for neck swelling, polydipsia, polyuria, polyphagia, and marked weight changes, Hematologic/Lymphatic: Negative for swollen nodes, abnormal bleeding, and unusual bruising. 17:52 Abdomen/GI: Positive for black/tarry stool, rectal bleeding. 17:52 Skin: Positive for pallor. Exam: 17:52 Constitutional: This is a well developed, well nourished patient who is awake, alert, shannon and in no acute distress. Head/Face: Normocephalic, atraumatic. Eyes: Pupils equal round and reactive to light, extra-ocular motions intact. Lids and lashes normal. Conjunctiva and sclera are non-icteric and not injected. Cornea within normal limits. Periorbital areas with no swelling, redness, or edema. ENT: Nares patent. No nasal discharge, no septal abnormalities noted. Tympanic membranes are normal and external auditory canals are clear. Oropharynx with no redness, swelling, or masses, exudates, or evidence of obstruction, uvula midline. Mucous membranes moist. Neck: Trachea midline, no thyromegaly or masses palpated, and no cervical lymphadenopathy. Supple, full range of motion without nuchal rigidity, or vertebral point tenderness. No Meningismus. Chest/axilla: Normal chest wall appearance and motion. Nontender with no deformity. No lesions are appreciated. Respiratory: Lungs have equal breath sounds bilaterally, clear to auscultation and percussion. No rales, rhonchi or wheezes noted. No increased work of breathing, no retractions or nasal flaring. Back: No spinal tenderness. No costovertebral tenderness. Full range of motion. Male : Normal genitalia with no discharge or lesions. MS/ Extremity: Pulses equal, no cyanosis. Neurovascular intact. Full, normal range of motion. Neuro: Awake and alert, GCS 15, oriented to person, place, time, and situation. Cranial nerves II-XII grossly intact. Motor strength 5/5 in all extremities. Sensory grossly intact. Cerebellar exam normal. Normal gait. Psych: Awake, alert, with orientation to person, place and time. Behavior, mood, and affect are within normal limits. 17:52 Cardiovascular: Rate: normal, actual rate is 91 bpm, Rhythm: irregularly irregular, Pulses: Pulses are 4+ in bilateral radial, brachial, femoral, popliteal, posterior tibial and and dorsalis pedis arteries.. Heart sounds: normal, Edema: is not appreciated, JVD: is not appreciated. 17:52 ECG was reviewed by the Attending Physician. 17:58 Abdomen/GI: Inspection: abdomen appears normal, Bowel sounds: normal, Palpation: shannon abdomen is soft and non-tender, Rectal exam: Prostate: normal, rectal tone normal, Stool: guaiac negative, hemorrhoid(s), are not appreciated, mass, is not appreciated, swelling, is not appreciated, tenderness, is not appreciated, fecal impaction, is not appreciated, Liver: no appreciated palpable abnormalities, Hernia: not appreciated. Vital Signs: 15:37 BP 117 / 70; Pulse 81; Resp 16; Temp 98.2; Pulse Ox 100% on R/A; Weight 72.57 kg; iw Height 5 ft. 11 in. (180.34 cm); Pain 0/10; 17:25 BP 122 / 89; Pulse 85; Resp 24; Pulse Ox 97% on R/A; Pain 0/10; ld1 18:44 BP 128 / 86; Pulse 90; Resp 23; Pulse Ox 97% on R/A; eh3 19:36 BP 120 / 74; Pulse 100; Resp 36; Pulse Ox 100% on R/A; tw5 15:37 Body Mass Index 22.32 (72.57 kg, 180.34 cm) MDM: 16:[address] [facility] 17:58 Differential diagnosis: hemorrhoids, abscess. Data reviewed: vital signs, nurses notes, [facility] EMS record, lab test result(s), EKG, radiologic studies, CT scan, plain films. 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 Test interpretation: by ED physician or midlevel provider: ECG, plain radiologic studies. Counseling: I had a detailed discussion with the patient and/or guardian regarding: the historical points, exam findings, and any diagnostic results supporting the discharge/admit diagnosis, lab results, radiology results, the need for further work-up and treatment in the hospital. 05/09 15:47 Order name: Basic Metabolic Panel 05/09 15:47 Order name: CBC with Diff 05/09 15:47 Order name: PT-INR 05/09 15:47 Order name: Troponin HS 05/09 15:47 Order name: Type And Screen 05/09 15:47 Order name: Amylase, Serum 05/09 15:47 Order name: Hepatic Function 05/09 15:47 Order name: Lipase 05/09 16:15 Order name: CBC with Automated Diff; Complete Time: 16:18 EDSC 05/09 16:18 Order name: Protime (+INR); Complete Time: 16:40 EDSC 05/09 16:30 Order name: Basic Metabolic Panel; Complete Time: 16:40 EDSC 05/09 16:30 Order name: Liver (Hepatic) Function; Complete Time: 16:40 EDSC 05/09 16:30 Order name: Troponin High Sensitivity; Complete Time: 16:40 EDMS 05/09 16:30 Order name: Amylase; Complete Time: 16:40 EDSC 05/09 15:47 Order name: XRAY Chest (1 view) 05/09 15:47 Order name: EKG; Complete Time: 15:58 05/09 15:47 Order name: Cardiac monitoring; Complete Time: 17:25 05/09 15:47 Order name: EKG - Nurse/Tech; Complete Time: 17:25 05/09 16:19 Order name: CT Abd/Pelvis - IV Contrast Only [facility] 05/09 16:29 Order name: RAD; Complete Time: 16:40 EDMS 05/09 16:30 Order name: Lipase; Complete Time: 16:40 EDMS 05/09 17:18 Order name: CT EDMS 05/09 17:31 Order name: Type and Screen EDMS 05/09 20:23 Order name: SARS RAPID tw5 05/09 21:04 Order name: SARS-COV-2 Antigen Rapid EDMS 05/09 15:47 Order name: IV Saline Lock; Complete Time: 15:58 iw 05/09 15:47 Order name: Labs collected and sent; Complete Time: 15:58 iw 05/09 15:47 Order name: O2 Per Protocol; Complete Time: 16:13 iw 05/09 15:47 Order name: O2 Sat Monitoring; Complete Time: 16:13 iw 05/09 17:50 Order name: IV Saline Lock - Large Bore; Complete Time: 18:18 shannon EC:52 Rate is 91 beats/min. Rhythm is irregularly irregular. QRS [place] is Normal. UT interval shannon is normal. QRS interval is normal. QT interval is normal. No Q waves. T waves are Normal. No ST changes noted. Clinical impression: Atrial Fibrillation. Interpreted by me. Reviewed by me. Administered Medications: 17:25 Drug: NS 0.9% 1000 ml Route: IV; Rate: 125 ml/hr; Site: left antecubital; ld1 18:18 Drug: Zosyn (piperacillin-tazobactam) 3.375 grams Route: IVPB; Infused Over: 60 mins; ld1 Site: right forearm; 19:01 Follow up: IV Status: Completed infusion; IV Intake: 100ml ld1 18:30 Drug: ProTONIX (pantoprazole) 80 mg Route: IVP; Site: left antecubital; ld1 18:30 Drug: ProTONIX (pantoprazole) 8 mg/hr Route: IV; Rate: 25 ml/hr; Site: left antecubital;ld1 19:01 Drug: vancoMYCIN 1 grams Route: IVPB; Infused Over: 2 hrs; Site: left antecubital; ld1 Disposition Summary: 05/09/22 18:02 Hospitalization Ordered Hospitalization Status: Inpatient Admission shannon Provider: Arline Martinez cha Location: Telemetry/MedSur (Inpatient) shannon Condition: Fair shannon Problem: new shannon Symptoms: have improved shannon Bed/Room Type: Standard shannon Room Assignment: 426(05/09/22 21:55) eb1 Diagnosis - Persistent atrial fibrillation shannon - shelter (current) use of anticoagulants shannon - Diverticulitis of large intestine without perforation or abscess without bleeding - shannon CURRENTLY - Anemia, unspecified shannon - Elevated white blood cell count shannon - Hypokalemia - 3.3 shannon - Unspecified kidney failure - CHRONIC shannon - Cutaneous abscess of groin - left, 6x6 cm shannon Forms: - Medication Reconciliation Form shannon - SBAR form shannon Signatures: 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
--- NOTE | 2022-05-09 18:04 | ER ---
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 Coronavirus screen: At this time, the client does not indicate any symptoms associated with coronavirus-19. Ebola Screen: Patient negative for fever greater than or equal to 101.5 degrees Fahrenheit, and additional compatible Ebola Virus Disease symptoms Patient denies exposure to infectious person. Patient denies travel to an Ebola-affected area in the 21 days before illness onset. No symptoms or risks identified at this time. Initial Sepsis Screen: Does the patient meet any 2 criteria? No. Patient's initial sepsis screen is negative. Does the patient have a suspected source of infection? No. Patient's initial sepsis screen is negative. Risk Assessment: Do you want to hurt yourself or someone else? Patient reports no desire to harm self or others. Onset of symptoms was May 07, 2022. 15:37 Method Of Arrival: Wheelchair iw 15:37 Acuity: FRANCISCO 2 iw Historical: - Allergies: 15:40 No Known Allergies; iw - Home Meds: 15:40 acetaminophen 325 mg Oral tab 1 tab every 4 hours [Active]; amiodarone 200 mg Oral tab iw 1 tab once daily [Active]; apixaban 2.5 mg oral tab 1 tab 2 times per day [Active]; atorvastatin 10 mg oral tab 1 tab once daily [Active]; clopidogrel 75 mg oral tab 1 tab once daily [Active]; ferrous sulfate 300 mg (60 mg iron) Oral tab daily [Active]; fluticasone furoate 50 mcg nasal spsn twice a day [Active]; furosemide 20 mg Oral tab 1 tab once daily [Active]; gabapentin 300 mg oral tab twice a day [Active]; guaifenesin 400 mg Oral tab twice a day [Active]; lansoprazole 30 mg oral cpDR 1 cap once daily [Active]; losartan 50 mg oral tab 1 tab once daily [Active]; melatonin 5 mg Oral cap daily [Active]; metoprolol tartrate 25 mg Oral tab 1 tab 2 times per day [Active]; pyridostigmine bromide 60 mg oral tab twice a day [Active]; sertraline 50 mg oral tab 1 tab once daily [Active]; - PMHx: 15:40 Atrial fibrillation; Difficulty swallowing; Hypertension; Sleep Apnea; TIA; iw - PSHx: 15:40 feeding tube; Prostate surgery; iw - Immunization history:: Adult Immunizations up to date, Client reports receiving the 2nd dose of the Covid vaccine. - Social history:: Smoking status: Patient denies any tobacco usage or history of. Patient/guardian denies using alcohol. - Family history:: not pertinent. Screenin:25 Abuse screen: Denies threats or abuse. Denies injuries from another. Nutritional ld1 screening: No deficits noted. Tuberculosis screening: No symptoms or risk factors identified. Fall Risk None identified. Assessment: 17:25 General: Appears in no apparent distress. comfortable, Behavior is calm, cooperative, ld1 appropriate for age. Pain: Denies pain. Neuro: Level of Consciousness is awake, alert, obeys commands, Oriented to person, place, time, situation, Appropriate for age. Cardiovascular: Capillary refill < 3 seconds Patient's skin is warm and dry. Rhythm is sinus rhythm. Respiratory: Airway is patent Respiratory effort is even, unlabored. GI: Abdomen is round non-distended, Reports black stool. : No signs and/or symptoms were reported regarding the genitourinary system. EENT: No signs and/or symptoms were reported regarding the EENT system. Derm: No signs and/or symptoms reported regarding the dermatologic system. Musculoskeletal: No signs and/or symptoms reported regarding the musculoskeletal system. 19:36 General: Reports "i feel decent, and sleepy.". Neuro: Level of Consciousness is awake, tw5 alert, obeys commands, Oriented to person, place, time, situation, Appropriate for age. Respiratory: Airway is patent Trachea midline Respiratory pattern is tachypnea. Vital Signs: 15:37 BP 117 / 70; Pulse 81; Resp 16; Temp 98.2; Pulse Ox 100% on R/A; Weight 72.57 kg; iw Height 5 ft. 11 in. (180.34 cm); Pain 0/10; 17:25 BP 122 / 89; Pulse 85; Resp 24; Pulse Ox 97% on R/A; Pain 0/10; ld1 18:44 BP 128 / 86; Pulse 90; Resp 23; Pulse Ox 97% on R/A; eh3 19:36 BP 120 / 74; Pulse 100; Resp 36; Pulse Ox 100% on R/A; tw5 15:37 Body Mass Index 22.32 (72.57 kg, 180.34 cm) iw ED Course: 15:26 Patient arrived in ED. am2 15:27 Erickson Coleman DO is Private Physician. am2 15:40 Triage completed. iw 15:57 Inserted saline lock: 20 gauge in left antecubital area, using aseptic technique. Blood kc6 collected. 15:57 Patient has correct armband on for positive identification. blood band placed to the kc6 left wrist. 15:58 Amylase, Serum Sent. kc6 15:58 Hepatic Function Sent. kc6 15:58 Lipase Sent. kc6 15:58 Type And Screen Sent. kc6 15:58 Basic Metabolic Panel Sent. kc6 15:58 CBC with Diff Sent. kc6 15:58 PT-INR Sent. kc6 15:58 Troponin HS Sent. kc6 16:18 Israel Frias MD is Attending Physician. shannon 17:25 No provider procedures requiring assistance completed. ld1 17:25 Client placed on continuous cardiac and pulse oximetry monitoring. NIBP monitoring ld1 applied. Door closed. Noise minimized. Warm blanket given. 17:42 Stefanie Arce, DASH is Primary Nurse. eh3 17:59 Arline Martinez MD is Hospitalizing Provider. shannon 18:15 Inserted saline lock: 20 gauge in right upper arm, using aseptic technique. em1 20:33 SARS RAPID Sent. tw5 Administered Medications: 17:25 Drug: NS 0.9% 1000 ml Route: IV; Rate: 125 ml/hr; Site: left antecubital; ld1 18:18 Drug: Zosyn (piperacillin-tazobactam) 3.375 grams Route: IVPB; Infused Over: 60 mins; ld1 Site: right forearm; 19:01 Follow up: IV Status: Completed infusion; IV Intake: 100ml ld1 18:30 Drug: ProTONIX (pantoprazole) 80 mg Route: IVP; Site: left antecubital; ld1 18:30 Drug: ProTONIX (pantoprazole) 8 mg/hr Route: IV; Rate: 25 ml/hr; Site: left antecubital;ld1 19:01 Drug: vancoMYCIN 1 grams Route: IVPB; Infused Over: 2 hrs; Site: left antecubital; ld1 Medication: 17:25 VIS not applicable for this client. ld1 Intake: 19:01 IV: 100ml; Total: 100ml. ld1 Outcome: 18:02 Decision to Hospitalize by Provider. [facility] 22:24 Patient left the ED. jb4 Signatures: Israel Frias MD MD cha Williams, Irene, RN RN iw Martinez, Eric em1 Kolby Mcclure RN RN jb4 Pam Olivera am2 Val Foster RN RN ld1 Luz Rivas 5 Stefanie Arce RN RN 3 Ericka Almaguer 6
[2022-05-09] MEDS ORDERED: PANTOPRAZOLE 40 MG INJ ONE (18:21)
[2022-05-09] MEDS ORDERED: NA CHLORIDE 0.9% 250 ML ONE ×2 (18:23→19:03)
[2022-05-09] MEDS ORDERED: VANCOMYCIN 1 GM/VIAL ONE (19:03)
--- NOTE | 2022-05-09 19:05 | P.HP ---
Certification for Inpatient Patient admitted to: Inpatient With expected LOS: >2 Midnights Patient will require the following post-hospital care: None Practitioner: I am a practitioner with admitting privileges, knowledge of patient current condition, hospital course, and medical plan of care. Services: Services provided to patient in accordance with Admission requirements found in Title 42 Section 412.3 of the Code of Federal Regulations Patient History Date of Service: 05/10/22 Reason for admission: Groin Abscess, Diverticulitis History of Present Illness: Patient is a 81-year-old male with history of atrial fibrillation on chronic anticoagulation, myasthenia gravis, CHF, and CAD who is currently a resident of [facility] presented to the emergency department with complaints of watery stool and rectal bleeding x 2 days. He also has a groin abscess that Dr. Young has been following. Vital signs stable. His labs today are significant for WBC 16, hgb 9.7, potassium 3.3, BUN 27, Cr 1.3, troponin 82.7. Hemoccult negative. Chest xray showed trace bilateral pleural effusions. CT abd/pelv showed mild sigmoid diverticulitis. He was given 1L fluid, zosyn, and started on protonix drip. Dr. Young was notified who wishes to take patient to OR tomorrow. He is admitted for further management. Allergies No Known Allergies Allergy (Verified 01/28/22 06:19) Home medications list reviewed: Yes Home Medications: Sertraline HCl 100 tab PO DAILY 10/05/21 Pyridostigmine [place] 60 mg PO BID 11/16/21 predniSONE [Prednisone*] 60 mg PO SEECOM 11/16/21 Amlodipine Besylate 5 mg PO DAILY 01/28/22 Aspirin [Aspirin EC 81 MG] 81 mg PO DAILY 01/28/22 Bupropion HCl [Wellbutrin] 300 mg PO DAILY 01/28/22 Clopidogrel Bisulfate [Plavix*] 75 mg PO DAILY 01/28/22 Ferrous Sulfate [Iron] 325 mg PO DAILY 01/28/22 Furosemide 40 mg PO DAILY 01/28/22 Gabapentin [Neurontin*] 400 mg PO BID 01/28/22 Losartan Potassium [Cozaar] 50 mg PO DAILY 01/28/22 Nutritional Supplement [Nutren 1.0] 250 ml OSTOMY QID 01/28/22 Pravastatin [Pravachol*] 40 mg PO DAILY 01/28/22 Spironolactone 50 mg PO DAILY 01/28/22 Tolterodine Tartrate 2 mg PO BID 01/28/22 azaTHIOprine [Azathioprine] 3 tab PO DAILY 01/28/22 carvediloL [Carvedilol] 25 mg PO BID 01/28/22 metroNIDAZOLE [Flagyl] 375 mg PO DAILY 01/28/22 traMADol HCL [Ultram*] 50 mg PO QID 01/28/22 Amiodarone HCl [Cordarone*] 200 mg FT DAILY #30 tab 04/01/22 Apixaban [Eliquis *] 2.5 mg FT BID #60 04/01/22 - Past Medical/Surgical History Diabetic: No -: hep cresolved -: high cholesterol -: renal stones -: Arrythmias -: Hypertension -: TIA -: Myasthenia Gravis -: A. fib on anticoagulation -: CAD -: foot surgery9 bone spurs -: Cardiac Stents -: PEg tube Psychosocial/ Personal History: [facility] - Family History Mother -: Hypertension, Diabetes Father -: Heart disease Sister -: Heart disease, Diabetes Brother -: Heart disease - Social History Smoking Status: Never smoker Alcohol use: No CD- Drugs: No Caffeine use: Yes Review of Systems Gastrointestinal: Melena Integumentary: Other (Groin abscess) Physical Examination - Physical Exam General: Alert, In no apparent distress HEENT: Atraumatic, PERRLA, EOMI, Sclerae nonicteric Neck: Supple, 2+ carotid pulse no bruit, No LAD, Without JVD or thyroid abnormality Respiratory: Clear to auscultation bilaterally, Normal air movement Cardiovascular: Regular rate/rhythm, Normal S1 S2 Gastrointestinal: Normal bowel sounds, No tenderness Musculoskeletal: No tenderness Integumentary: Other (left sided groin abscess) Neurological: Normal speech, Normal strength at 5/5 x4 extr, Normal tone, Normal affect - Studies Laboratory Data (last 24 hrs) 05/09/22 15:53: PT 23.8 H, INR 2.13 05/09/22 15:53: WBC 16.50 H, Hgb 9.7 L, Hct 30.5 L, Plt Count 286 05/09/22 15:53: Sodium 138, Potassium 3.3 L, BUN 27 H, Creatinine 1.34 H, Glucose 125 H, Total Bilirubin 0.3, AST 14 L, ALT 14, Alkaline Phosphatase 84, Amylase 19 L, Lipase 122 Assessment and Plan - Problems (Diagnosis) (1) Diverticulosis large intestine w/o perforation or abscess w/bleeding Current Visit: Yes Status: Acute (2) Cutaneous abscess of groin Current Visit: Yes Status: Acute (3) Hypokalemia Current Visit: Yes Status: Acute (4) CKD (chronic kidney disease) Current Visit: Yes Status: Chronic Qualifiers: Chronic kidney disease stage: stage 3 (moderate) Chronic kidney disease stage 3 subtype: stage 3a (GFR 45-59) Qualified Code(s): N18.31 - Chronic kidney disease, stage 3a (5) Hypertension Current Visit: Yes Status: Chronic Qualifiers: Hypertension type: primary hypertension Qualified Code(s): I10 - Essential (primary) hypertension (6) Myasthenia gravis Current Visit: Yes Status: Chronic (7) Elevated troponin Current Visit: Yes Status: Acute - Plan -NPO at midnight -Continue zosyn and vancomycin -HOLD anticoagulation -Gentle IV hydration -Trend troponin -Cardiology consulted for cardiac clearance -Monitor CBC. Transfuse if hgb < 7. Type in screen completed. -SCDs for VTE prophylaxis -Full code Discharge Plan: Long Term Plan to discharge in: Greater than 2 days - Advance Directives Does patient have a Living Will: No Does patient have a Durable POA for Healthcare: No - Code Status/Comfort Care Code Status Assessed: Yes (Full) Critical Care: No Time Spent Managing Pts Care (In Minutes): 50
[2022-05-09 21:04] LABS: SARS-CoV-2 Antigen Rapid Res Negative (Negative)
[2022-05-09] MEDS: NA CHLORIDE 0.9% 1,000 ML IV SCH (22:11)
[2022-05-09] MEDS ORDERED: VANCOMYCIN 1 GM in NA CHLORIDE 0.9% 250 ML IVPB SCH (22:11)
[2022-05-09] MEDS ORDERED: ACETAMINOPHEN 500 MG TAB PO PRN (22:11)
[2022-05-09] MEDS ORDERED: ONDANSETRON 4 MG/2 ML VIAL IV PRN (22:11)
[2022-05-09] MEDS ORDERED: VANCOMYCIN 500 MG in NA CHLORIDE 0.9% 100 ML IVPB ONE (22:45)
[2022-05-09 22:49] VITALS: BMI 22.3
[2022-05-09] MEDS ORDERED: POTASSIUM CL SA 10 MEQ TAB PO ONE (23:25)
[2022-05-10] MEDS ORDERED: NA CHLORIDE 0.9% 100 ML ONE (00:46)
[2022-05-10] MEDS ORDERED: PIPERACIL/TAZO 3.375 GM VIAL IV ONE (00:48)
[2022-05-10] MEDS: PIPER TAZO 3.375 GM in NA CHLORIDE 0.9% 100 ML IV SCH ×3 (00:58→16:06)
[2022-05-10] MEDS: MORPHINE 4 MG/ML SYR IV PRN ×3 (03:51→23:42)
[2022-05-10] MEDS: NA CHLORIDE 0.9% 1,000 ML IV SCH ×2 (04:38→13:23)
[2022-05-10 05:36] LABS: Absolute Lymphocytes (CBC) 0.6 K/uL (0.7-4.9); Lymphocytes % 6.5 % (15.3-44.8); MCV 79.7 fL (80-100); MPV 8.2 fL (7.6-11.3); RBC Red Blood Cell Count 3.01 M/uL (4.33-5.43)
[2022-05-10 05:53] LABS: CKMB Creatine Kinase MB 2.6 ng/mL (1.0-3.6); Troponin High Sensitivity 51.3 pg/mL (<58.9)
[2022-05-10 06:11] LABS: BUN Blood Urea Nitrogen 23 mg/dL (7-18); Bicarbonate 23 mmol/L (21-32); Glomerular Filtration Rate 66 ml/min (=/>90); Glucose Level 83 mg/dL (74-106); HDL Cholesterol 28 mg/dL (40-60); LDL Cholesterol, Calculated 23 mg/dL (<130); Magnesium 1.8 mg/dL (1.8-2.4); Phosphorus 2.8 mg/dL (2.5-4.9); Potassium 3.4 mmol/L (3.5-5.1); Sodium Level 141 mmol/L (136-145)
[2022-05-10 06:13] LABS: Thyroid Stimulating Hormone < 0.005 uIU/mL (0.360-3.740)
[2022-05-10] MEDS ORDERED: POTASSIUM 25 MEQ EFFERV TAB PO ONE (06:23)
[2022-05-10] MEDS ORDERED: MAGNESIUM SULFATE 1 gm IVPB 1 GM/100 ML BAG IV ONE (06:24)
[2022-05-10] MEDS ORDERED: FENTANYL CITR 100 MCG/2 ML ONE (11:12)
[2022-05-10] MEDS ORDERED: ONDANSETRON 4 MG/2 ML VIAL ONE (11:13)
[2022-05-10] MEDS ORDERED: SODIUM HYPOCHLORITE 0.25% 473 ML ONE (11:13)
[2022-05-10] MEDS ORDERED: BUPIVACAINE 0.25% PF 10 ML VIAL ONE (11:13)
[2022-05-10] MEDS ORDERED: LIDOCAINE JELLY 2%- 5 ML TUBE ONE (11:13)
[2022-05-10] MEDS ORDERED: propofoL 200 MG/20 ML VIAL IV ONE (11:13)
[2022-05-10] MEDS ORDERED: LIDOCAINE 1% MPF 2 ML AMPULE ONE (11:13)
--- NOTE | 2022-05-10 11:59 | P.OP ---
Preoperative diagnosis: LEFT inner thigh / inguinal / perianal abscess Postoperative diagnosis: LEFT inner thigh / inguinal / perianal abscess Primary procedure: Incision / drainage / debridment of LEFT inner thigh abscess Anesthesia: GETA + Local Estimated blood loss: <5cc Specimen: cultures and debridement tissue Findings: 15cm x 7cm x 5cm Complications: None Transferred to: Recovery Room Condition: Good
--- NOTE | 2022-05-10 12:55 | CON ---
Date of Consultation: 05/10/2022 Reason For Consultation: Cardiac clearance for I and D of his groin abscess. History Of Present Illness: Mr. Sun is 81, very well known to us from previous office visits and a dmission. He has had a known ejection fraction of 45%, qxojjlbx-lv-chsxbd mitral regurgitation, rece nt angioplasty and stent and atherectomy of his LAD in January, has not came for followup since. Has ch ronic atrial fibrillation at a rate of 104, anemia, hemoglobin 8.2, renal insufficiency, creatinine 1 .34, mildly elevated troponin. Potassium is 3.3. No cardiac symptoms reported. Dr. Young planned to do surgery on him today. I think he is cleared for surgery. Past Medical History: Includes CAD, atrial fibrillation, hypertension, sleep apnea, history of TIA, dyslipidemia, chronic systolic congestive heart failure, chronic xjrlqfog-bp-jbrnsn mitral regurgitat ion, coronary artery disease. Allergies: NONE. Review of Systems: Negative. Social History: Negative. Family History: Negative. Medications: Include amiodarone, Norvasc, Eliquis, aspirin, Plavix, Lasix, Neurontin, losartan, Core g, Aldactone, and Pravachol. Physical Examination: General: No acute distress and no cardiac symptoms. Vital Signs: Stable, atrial fibrillation, 104. HEENT: Negative. Neck: Supple with no bruit. Chest: Clear. Cardiac: Revealed atrial fibrillation. Abdomen: Benign. Extremities: Revealed no clubbing, cyanosis, or edema. He has right groin abscess. Diagnostic Data: As stated earlier. Impression And Plan: 1.Mr. Sun has qpweebuq-fs-dnlwwg mitral regurgitation, ejection fraction of 45%, coronary artery d isease, status post stent in January 2022 with no cardiac symptoms. I still think he is at moderate ris k for perioperative mortality, but I will clear him. I will discuss the case further with Dr. Lisa batista 2.Mildly elevated troponin secondary to anemia, renal insufficiency, hypokalemia, and atrial fibrill ation. This is demand ischemia. 3.Atrial fibrillation, rate controlled on amiodarone and Eliquis. 4.Dyslipidemia, well controlled. 5.Hypertension, well controlled. 6.Neuropathy, well controlled. 7.History of sleep apnea. 8.History of transient ischemic attack. We will continue to follow him postop. NB/MODL Voice ID: [id number] Report ID: [id number]
--- NOTE | 2022-05-10 13:19 | OP ---
Date of Procedure: 05/10/2022 Surgeon: Jules Young MD, Preoperative Diagnosis: Left inner thigh/inguinal/gluteal/perianal abscess. Postoperative Diagnosis: Left inner thigh/inguinal/gluteal/perianal abscess. Procedure Performed: Incision, drainage and debridement of the above-stated left inner thigh/inguina l/gluteal/perianal abscess. Anesthesia: General endotracheal plus local with 0.25% Marcaine. Estimated Blood Loss: Less than 5 cc. Specimen: Cultures and debridement tissue sent. Findings: Approximately 15 cm x 5 cm about a 6 cm abscess tracking and the letter C extending from t he inguinal region to the perianal region on the inner aspect of the left thigh. Complications: None. Disposition: The patient was transferred to the recovery room in good condition. Procedure In Detail: After informed consent was obtained, the patient was brought to the operating r oom, prepped and draped in the usual sterile fashion after adequate anesthesia was achieved. I found an area of obvious drainage of fluctuance of the left inner thigh. I made a linear incision down th rough subcutaneous tissues. I opened the cavity up and then encountered multiloculated pressurized a bscess with significant purulent discharge. This was cultured for both aerobic and anaerobic speciat ion. I continued using a combination of blunt and sharp dissection to circumferentially dissect out approximately 15 cm x 7 cm x 5 cm down to subcutaneous tissues as if a letter C was passed from the i nguinal area to the perianal area along the inner aspect of the thigh. There was dissection of the t issue planes. There was no obvious necrotizing component. This was a complicated multiloculated abs cess without evidence of gas formation. After the tissue was clean in its entirety, all necrotic tis aria was removed. I used a pulse lavage device to irrigate the area copiously. At the end of this, I then packed the area dry and then used electrocautery to achieve hemostasis, which was achieved well at this point. I then got 0.25% damp Kerlix and packed the wound in its entirety, damp to dry and s terile dressing placed over top. The patient tolerated the procedure well without evidence of compli cation and transferred to PACU in good condition. All counts were correct at the end of the case. WANDY/MARGAUX Voice ID: [id number] Report ID: [id number]
--- NOTE | 2022-05-10 13:38 | EKG ---
Test Date: 2022-05-09 Test Time: 17:16:25 Land [employer] Examiner: RIVAS MEASUREMENT RESULTS: Intervals: Rate: 91 DE: QRSD: 142 QT: 402 QTc: 494 New Point: P: DE: QRS: -52 T: 19 INTERPRETIVE STATEMENTS: Atrial fibrillation Right bundle branch block Left anterior fascicular block Bifascicular block Minimal voltage criteria for LVH, may be normal variant Septal infarct, age undetermined Abnormal ECG Compared to ECG 04/02/2022 11:17:49 Left ventricular hypertrophy now present Myocardial infarct finding now present Bifascicular block still present Electronically Signed On 05-10-22 13:37:06 CDT by Vinny Waggoner
[2022-05-10] MEDS ORDERED: VANCOMYCIN 500 MG/VIAL ONE (20:03)
[2022-05-10] MEDS: VANCOMYCIN 1.5 GM in NA CHLORIDE 0.9% 500 ML IVPB SCH (20:12)
[2022-05-10] MEDS: ENSURE ENLIVE 237 ML CAN PO SCH (20:15)
[2022-05-10] MEDS ORDERED: VANCOMYCIN 1.25 GM in NA CHLORIDE 0.9% 250 ML IVPB SCH (22:00)
[2022-05-11] MEDS: PIPER TAZO 3.375 GM in NA CHLORIDE 0.9% 100 ML IV SCH ×3 (00:27→17:42)
[2022-05-11] MEDS: HYDROCODONE/APAP 5/325 MG TAB PO PRN (01:47)
[2022-05-11] MEDS ORDERED: HYDROMORPHONE HCL 1 MG/ML INJ IV ONE (01:57)
--- NOTE | 2022-05-11 02:59 | P.PN ---
Date of Service: 05/10/22 Subjective patient doing well. Scheduled for surgery later today. Moderate risks for cardiac morbidity Physical Examination - Physical Exam General: Alert, In no apparent distress Respiratory: Clear to auscultation bilaterally, Normal air movement Cardiovascular: Regular rate/rhythm, Normal S1 S2 Gastrointestinal: Normal bowel sounds, No tenderness Musculoskeletal: No tenderness; groin abscess Neurological: no focal deficits Assessment and Plan - Problems (Diagnosis) (1) Left inguinal abscess Current Visit: Yes Status: Acute (2) Cutaneous abscess of groin Current Visit: Yes Status: Acute (3) Hypokalemia Current Visit: Yes Status: Acute (4) CKD (chronic kidney disease) Current Visit: Yes Status: Chronic Qualifiers: Chronic kidney disease stage: stage 3 (moderate) Chronic kidney disease stage 3 subtype: stage 3a (GFR 45-59) Qualified Code(s): N18.31 - Chronic kidney disease, stage 3a (5) Hypertension Current Visit: Yes Status: Chronic Qualifiers: Hypertension type: primary hypertension Qualified Code(s): I10 - Essential (primary) hypertension (6) Myasthenia gravis Current Visit: Yes Status: Chronic (7) Elevated troponin Current Visit: Yes Status: Acute - Plan 1. Continue with IV antibiotic 2. Continue with local wound care 3. Wound care consultation/surgical consultation appreciated; appreciate cardiac clearance 4. Gentle IV hydration 5. Monitor CBC 6. Strict blood sugar monitoring 7. Pain control 8. GI and DVT prophylaxis
[2022-05-11] MEDS: NA CHLORIDE 0.9% 1,000 ML IV SCH (05:16)
[2022-05-11] MEDS ORDERED: VANCOMYCIN 500 MG/VIAL ONE (05:44)
[2022-05-11 05:49] LABS: Absolute Lymphocytes (CBC) 0.7 K/uL (0.7-4.9); Hematocrit 25.9 % (39.6-49.0); Lymphocytes % 5.5 % (15.3-44.8); MCV 80.6 fL (80-100); RBC Red Blood Cell Count 3.22 M/uL (4.33-5.43)
[2022-05-11 05:58] LABS: Potassium 4.6 mmol/L (3.5-5.1)
[2022-05-11 06:59] LABS: Magnesium 1.9 mg/dL (1.8-2.4)
[2022-05-11] MEDS: ENSURE ENLIVE 237 ML CAN PO SCH ×2 (09:00→21:00)
--- NOTE | 2022-05-11 10:00 | P.PN ---
Subjective Date of Service: 05/11/22 Chief Complaint: Groin Abscess, Diverticulitis Subjective: Improving (Patient feels better today) Physical Examination - Vital Signs Temperature: 97.1 F Blood Pressure: 104/79 Pulse: 117 Respirations: 17 Pulse Ox (%): 97 - Physical Exam General: Alert, In no apparent distress, Cooperative Respiratory: Clear to auscultation bilaterally, Normal air movement Musculoskeletal: Other (LEFT groin surgical site is well packed, dressings are clean, dry, in place.) Assessment And Plan - Current Problems (Diagnosis) (1) Cutaneous abscess of groin Current Visit: Yes Status: Acute Plan: s/p incision, drainage, debridement of inguinal / thigh multiloculated abscess on 05/10 - dressing changes with damp to dry 0.25% dakins, kerlix, wrap, beginning on 05/12 - continue medical management - serial exams - antibiotics to continue - cultures pending
[2022-05-11] MEDS: MORPHINE 4 MG/ML SYR IV PRN ×2 (17:42→23:37)
[2022-05-11] MEDS: VANCOMYCIN 1.5 GM in NA CHLORIDE 0.9% 500 ML IVPB SCH (22:27)
[2022-05-11] MEDS: ALBUTEROL 2.5 MG/3 ML NEB SOL NEB SCH (22:50)
[2022-05-11] MEDS ORDERED: FUROSEMIDE 20 MG/ 2ML VIAL IV ONE (23:14)
--- NOTE | 2022-05-11 23:19 | P.PN ---
Date of Service: 05/11/22 Was paged to see patient at 2300. RN reports that patient has been more tachypneic, slightly tachycardic, and coughing. Breathing treatment administered without improvement in symptoms. I went to assess patient and did not appreciate crackles/rales but did notice 1+ edema on bilateral lower extremities. He has been getting NS at 77 since admission and it appears he has a history of CHF and has not been getting any lasix. Stat chest xray ordered as well as 20 mg IV lasix and cruz catheter per patient's request.
--- NOTE | 2022-05-11 23:36 | RAD REPORT ---
EXAM DESCRIPTION: RAD - Chest Single View - 05/11/2022 11:29 pm CLINICAL HISTORY: tachypnea Chest pain. COMPARISON: Chest Single View dated 05/09/2022; Chest Single View dated 04/02/2022; Chest Single View dated 03/31/2022; Chest Single View dated 01/27/2022; Abdomen Pelvis W Contrast dated 05/09/2022 FINDINGS: Portable technique limits examination quality. Moderate bilateral pulmonary opacities are present, greater on the left. These opacities have develop ed since the 05/09/22 study. The heart is mildly prominent. No displaced fractures. IMPRESSION: Moderate bilateral pulmonary opacities are present, likely representing pulmonary edema.
[2022-05-12] MEDS: PIPER TAZO 3.375 GM in NA CHLORIDE 0.9% 100 ML IV SCH ×3 (01:05→17:19)
[2022-05-12] MEDS ORDERED: FUROSEMIDE 20 MG/ 2ML VIAL IV ONE ×2 (01:59→23:26)
[2022-05-12] MEDS: ALBUTEROL 2.5 MG/3 ML NEB SOL NEB SCH ×4 (04:40→20:00)
[2022-05-12 06:15] LABS: Absolute Lymphocytes (CBC) 0.9 K/uL (0.7-4.9); Hematocrit 26.5 % (39.6-49.0); Lymphocytes % 7.6 % (15.3-44.8); MCV 80.8 fL (80-100); MPV 7.5 fL (7.6-11.3); RBC Red Blood Cell Count 3.28 M/uL (4.33-5.43)
[2022-05-12 06:45] LABS: Albumin 1.8 g/dL (3.4-5.0); Bilirubin Total 0.2 mg/dL (0.2-1.0); Magnesium 1.8 mg/dL (1.8-2.4); Potassium 3.9 mmol/L (3.5-5.1); Protein, Total 4.9 g/dL (6.4-8.2)
[2022-05-12] MEDS ORDERED: MAGNESIUM SULFATE 1 gm IVPB 1 GM/100 ML BAG IV ONE (08:00)
[2022-05-12] MEDS ORDERED: POTASSIUM CL SA 10 MEQ TAB PO ONE (08:00)
[2022-05-12] MEDS ORDERED: SODIUM HYPOCHLORITE 0.25% 473 ML TOP SCH (09:00)
[2022-05-12] MEDS: ENSURE ENLIVE 237 ML CAN PO SCH ×2 (09:00→20:08)
[2022-05-12] MEDS: SODIUM HYPOCHLORITE 0.25% 473 ML TOP SCH (09:28)
--- NOTE | 2022-05-12 13:03 | PN ---
Date of Progress Note: 05/11/2022 Subjective: Seen by outside, doing well, status post abscess drainage, surgically did well. No comp lication. Review of Systems: No chest pain, shortness of breath and cough. No nausea, vomiting, diarrhea. All other systems revi ewed and they were negative. Physical Examination: Vital Signs: Reviewed. Temperature is 97.7, pulse is 89, breathing at 16, blood pressure 133/74, sa turating 91%. General: Pleasant elderly male, in no distress. Head and Neck: Pupils are equal, reactive to light. Intact eye movements. No JVD. No cervical lym phadenopathy. Neck is supple. Thyroid is not enlarged. Lungs: Clear to auscultation bilaterally. No rhonchi, wheezing, or crackles. No accessory muscle u se. Heart: Irregular. No extra sounds. Abdomen: Soft, nontender. Bowel sounds positive. No organomegaly. No masses or hernia. No rigidi ty or rebound. Extremities: No clubbing or cyanosis. Intact pulses. Skin: No rash. Neurologic: Alert, awake. No acute focal deficits appreciated. Investigations: Troponin is normal today. Creatinine is 1.08, down from 1.34. Assessment And Recommendations: 1.Atrial fibrillation, which appears to be controlled. Heart rate is controlled. Start a low-dose beta-aldo, metoprolol 25 mg twice a day, and baby aspirin daily. The patient is not a candidate f or anticoagulation due to risk of falling. 2.Coronary artery disease. Troponin was slightly elevated, however, the second troponin is normaliz ed and the patient has no symptoms. Continue to monitor. No further cardiac workup is recommended during this hospital stay and to follow up as an outpatient with Dr. Quinn. SR/MODL Voice ID: [id number] Report ID: [id number]
[2022-05-12] MEDS: MORPHINE 4 MG/ML SYR IV PRN (15:49)
[2022-05-12] MEDS: VANCOMYCIN 1.5 GM in NA CHLORIDE 0.9% 500 ML IVPB SCH (20:08)
[2022-05-12] MEDS: FUROSEMIDE 40 MG TABLET PO SCH (22:29)
[2022-05-12] MEDS ORDERED: FUROSEMIDE 20 MG/ 2ML VIAL ONE (23:41)
[2022-05-13] MEDS: PIPER TAZO 3.375 GM in NA CHLORIDE 0.9% 100 ML IV SCH ×3 (00:49→17:24)
[2022-05-13] MEDS: ALBUTEROL 2.5 MG/3 ML NEB SOL NEB SCH ×4 (01:45→20:05)
--- NOTE | 2022-05-13 01:51 | P.PN ---
Date of Service: 05/11/22 Subjective Pt doing well; continue with abx Physical Examination - Physical Exam General: Alert, In no apparent distress Respiratory: Clear to auscultation bilaterally, Normal air movement Cardiovascular: Regular rate/rhythm, Normal S1 S2 Gastrointestinal: Normal bowel sounds, No tenderness Musculoskeletal: No tenderness; dressing is C/D/I Neurological: no focal deficits Assessment and Plan - Problems (Diagnosis) (1) Left inguinal abscess s/p I&D Current Visit: Yes Status: Acute (2) Cutaneous abscess of groin Current Visit: Yes Status: Acute (3) Hypokalemia Current Visit: Yes Status: Acute (4) CKD (chronic kidney disease) Current Visit: Yes Status: Chronic Qualifiers: Chronic kidney disease stage: stage 3 (moderate) Chronic kidney disease stage 3 subtype: stage 3a (GFR 45-59) Qualified Code(s): N18.31 - Chronic kidney disease, stage 3a (5) Hypertension Current Visit: Yes Status: Chronic Qualifiers: Hypertension type: primary hypertension Qualified Code(s): I10 - Essential (primary) hypertension (6) Myasthenia gravis Current Visit: Yes Status: Chronic (7) Elevated troponin Current Visit: Yes Status: Acute - Plan 1. Continue with IV antibiotic 2. Continue with local wound care 3. Wound care consultation/surgical consultation appreciated; appreciate cardiac clearance 4. Gentle IV hydration 5. Monitor CBC 6. Strict blood sugar monitoring 7. Pain control 8. GI and DVT prophylaxis
--- NOTE | 2022-05-13 01:54 | P.PN ---
Date of Service: 05/12/22 Subjective Patient was little short of breath overnight. Was given diuretics. Symptoms are improving. Physical Examination - Physical Exam General: Alert, In no apparent distress Respiratory: Clear to auscultation bilaterally, Normal air movement Cardiovascular: Regular rate/rhythm, Normal S1 S2 Gastrointestinal: Normal bowel sounds, No tenderness Musculoskeletal: No tenderness; groin abscess Neurological: no focal deficits Assessment and Plan - Problems (Diagnosis) (1) Left inguinal abscess s/p I&D Current Visit: Yes Status: Acute (2) Cutaneous abscess of groin Current Visit: Yes Status: Acute (3) Hypokalemia Current Visit: Yes Status: Acute (4) CKD (chronic kidney disease) Current Visit: Yes Status: Chronic Qualifiers: Chronic kidney disease stage: stage 3 (moderate) Chronic kidney disease stage 3 subtype: stage 3a (GFR 45-59) Qualified Code(s): N18.31 - Chronic kidney disease, stage 3a (5) Hypertension Current Visit: Yes Status: Chronic Qualifiers: Hypertension type: primary hypertension Qualified Code(s): I10 - Essential (primary) hypertension (6) Myasthenia gravis Current Visit: Yes Status: Chronic (7) Elevated troponin Current Visit: Yes Status: Acute - Plan 1. Continue with IV antibiotic 2. Continue with local wound care 3. Wound care consultation/surgical consultation appreciated; appreciate cardiac clearance 4. Gentle IV hydration 5. Monitor CBC 6. Strict blood sugar monitoring 7. Pain control 8. GI and DVT prophylaxis
[2022-05-13] MEDS: MORPHINE 4 MG/ML SYR IV PRN (03:13)
[2022-05-13] MEDS: METOPROLOL TAR 25 MG TAB PO SCH ×2 (05:46→17:24)
[2022-05-13] MEDS: AMIODARONE HCL 200 MG TAB PO SCH ×2 (05:46→09:54)
[2022-05-13] MEDS ORDERED: METOPROLOL TAR 25 MG TAB ONE (05:50)
[2022-05-13] MEDS ORDERED: AMIODARONE HCL 200 MG TAB ONE ×2 (05:50→09:28)
[2022-05-13] MEDS ORDERED: METHYLPREDNISOLONE 125 MG INJ IV SCH ×2 (06:00→15:00)
[2022-05-13 06:03] LABS: Absolute Lymphocytes (CBC) 0.9 K/uL (0.7-4.9); Hematocrit 27.7 % (39.6-49.0); Lymphocytes % 7.4 % (15.3-44.8); MCV 81.7 fL (80-100); MPV 7.5 fL (7.6-11.3)
[2022-05-13 06:11] LABS: Magnesium 1.9 mg/dL (1.8-2.4); Potassium 3.6 mmol/L (3.5-5.1)
[2022-05-13] MEDS: SODIUM HYPOCHLORITE 0.25% 473 ML TOP SCH (09:00)
[2022-05-13] MEDS ORDERED: FLUCONAZOLE 50 MG PO SCH (09:00)
[2022-05-13] MEDS: ENSURE ENLIVE 237 ML CAN PO SCH ×2 (09:00→21:08)
[2022-05-13] MEDS ORDERED: SERTRALINE HCL 100 MG TAB ONE (09:24)
[2022-05-13] MEDS ORDERED: GABAPENTIN 400 MG CAP ONE (09:24)
[2022-05-13] MEDS ORDERED: METHYLPREDNISOLONE 125 MG INJ ONE (09:24)
[2022-05-13] MEDS ORDERED: FERROUS SULFATE 325 MG TAB PO ONE (09:24)
[2022-05-13] MEDS ORDERED: CLOPIDOGREL 75 MG TABLET ONE (09:24)
[2022-05-13] MEDS ORDERED: ATORVASTATIN 10 MG TAB ONE (09:24)
[2022-05-13] MEDS: SERTRALINE HCL 100 MG TAB PO SCH (09:53)
[2022-05-13] MEDS: FERROUS SULFATE 325 MG TAB PO SCH (09:53)
[2022-05-13] MEDS: CLOPIDOGREL 75 MG TABLET PO SCH (09:53)
[2022-05-13] MEDS: GABAPENTIN 400 MG CAP PO SCH ×2 (09:53→21:06)
[2022-05-13] MEDS: FUROSEMIDE 40 MG TABLET PO SCH (09:54)
[2022-05-13] MEDS: ATORVASTATIN 10 MG TAB PO SCH (09:54)
[2022-05-13] MEDS: LOSARTAN POTASSIUM 50 MG TABLET PO SCH (09:59)
[2022-05-13] MEDS ORDERED: FUROSEMIDE 20 MG/ 2ML VIAL IV ONE (10:08)
[2022-05-13] MEDS ORDERED: ALBUMIN HUMAN 25% 50 ML IV ONE ×2 (10:08→11:46)
[2022-05-13] MEDS ORDERED: LOSARTAN POTASSIUM 50 MG TABLET ONE (10:09)
[2022-05-13] MEDS: HYDROCODONE/APAP 5/325 MG TAB PO PRN (10:14)
[2022-05-13] MEDS: LACTOSE-REDUCED FOOD 330 ML LIQUID PO SCH ×2 (11:30→16:30)
[2022-05-13] MEDS ORDERED: FUROSEMIDE 20 MG/ 2ML VIAL ONE (11:46)
[2022-05-13] MEDS: PYRIDOSTIGMINE 60 MG TABLET PO SCH ×4 (11:55→21:06)
[2022-05-13] MEDS ORDERED: PYRIDOSTIGMINE 60 MG TABLET ONE (12:04)
[2022-05-13] MEDS: JUVEN PACKET PO SCH (16:30)
[2022-05-13] MEDS: VANCOMYCIN 1.5 GM in NA CHLORIDE 0.9% 500 ML IVPB SCH (20:00)
[2022-05-14] MEDS: ALBUTEROL 2.5 MG/3 ML NEB SOL NEB SCH ×5 (01:40→19:20)
[2022-05-14] MEDS: PIPER TAZO 3.375 GM in NA CHLORIDE 0.9% 100 ML IV SCH ×2 (01:46→09:02)
[2022-05-14 06:24] LABS: Absolute Lymphocytes (CBC) 0.6 K/uL (0.7-4.9); Hematocrit 26.5 % (39.6-49.0); Lymphocytes % 7.3 % (15.3-44.8); MCV 81.5 fL (80-100); MPV 7.7 fL (7.6-11.3); RBC Red Blood Cell Count 3.25 M/uL (4.33-5.43)
[2022-05-14] MEDS: METOPROLOL TAR 25 MG TAB PO SCH ×2 (06:31→18:00)
[2022-05-14 06:49] LABS: Albumin 1.8 g/dL (3.4-5.0); Bilirubin Total 0.2 mg/dL (0.2-1.0); Potassium 3.2 mmol/L (3.5-5.1); Protein, Total 4.8 g/dL (6.4-8.2)
--- NOTE | 2022-05-14 07:18 | RAD REPORT ---
EXAM DESCRIPTION: [facility] Single View05/14/2022 5:42 am CLINICAL HISTORY: Shortness of breath COMPARISON: May 11, 2022 FINDINGS: Bilateral pulmonary opacities have partially resolved. Small bilateral pleural effusions. Heart remains enlarged IMPRESSION: Partial resolution in bilateral pulmonary opacities probably pulmonary edema
[2022-05-14] MEDS: LACTOSE-REDUCED FOOD 330 ML LIQUID PO SCH ×3 (07:30→16:30)
[2022-05-14] MEDS: JUVEN PACKET PO SCH ×2 (07:30→16:30)
--- NOTE | 2022-05-14 08:22 | P.PN ---
Date of Service: 05/13/22 Subjective Patient is a very pleasant 81-year-old gentleman with history of myasthenia gravis. He gets around with a scooter. He does walk a few steps according to the patient. He recently had his PEG tube removed as he has been eating better. However, after this hospitalization he has become weaker. He had physical therapy consulted. He is not really eating that well because he does not like the food in the way it looks. Overall, he is clinically better from his infection. Labs have been stable. Plan was to discharge home over the weekend but his appetite has been very poor. He also has some dyspnea over the evenings and we diuresed him extensively. His respiratory status has improved as well. Anticipate discharge with home health and wound care. Patient's plan is to go back home with his family. Physical Examination - Physical Exam General: Alert, In no apparent distress Respiratory: Clear to auscultation bilaterally, Normal air movement Cardiovascular: Regular rate/rhythm, Normal S1 S2 Gastrointestinal: Normal bowel sounds, No tenderness Musculoskeletal: No tenderness; groin abscess Neurological: no focal deficits Assessment and Plan - Problems (Diagnosis) (1) Left inner thigh/inguinal abscess Current Visit: Yes Status: Acute (2) Cutaneous abscess of groin Current Visit: Yes Status: Acute (3) Hypokalemia Current Visit: Yes Status: Acute (4) CKD (chronic kidney disease) Current Visit: Yes Status: Chronic Qualifiers: Chronic kidney disease stage: stage 3 (moderate) Chronic kidney disease stage 3 subtype: stage 3a (GFR 45-59) Qualified Code(s): N18.31 - Chronic kidney disease, stage 3a (5) Hypertension?CHF(EF<45% Current Visit: Yes Status: Chronic Qualifiers: Hypertension type: primary hypertension Qualified Code(s): I10 - Essential (primary) hypertension (6) Myasthenia gravis Current Visit: Yes Status: Chronic (7) Elevated troponin Current Visit: Yes Status: Acute - Plan 1. Continue with IV antibiotic 2. Continue with local wound care 3. Wound care consultation/surgical consultation appreciated; appreciate cardiac clearance 4. Heplock IV and diurese 5. Continue wih antiarrythmic 6. Strict blood sugar monitoring 7. PT eval 8. GI and DVT prophylaxis
[2022-05-14] MEDS: PYRIDOSTIGMINE 60 MG TABLET PO SCH ×4 (08:56→20:08)
[2022-05-14] MEDS: ATORVASTATIN 10 MG TAB PO SCH (08:56)
[2022-05-14] MEDS: GABAPENTIN 400 MG CAP PO SCH ×2 (08:56→20:08)
[2022-05-14] MEDS: CLOPIDOGREL 75 MG TABLET PO SCH (08:56)
[2022-05-14] MEDS: AMIODARONE HCL 200 MG TAB PO SCH (08:56)
[2022-05-14] MEDS: SERTRALINE HCL 100 MG TAB PO SCH (08:56)
[2022-05-14] MEDS: LOSARTAN POTASSIUM 50 MG TABLET PO SCH (08:56)
[2022-05-14] MEDS: SODIUM HYPOCHLORITE 0.25% 473 ML TOP SCH (08:57)
[2022-05-14] MEDS: ENSURE ENLIVE 237 ML CAN PO SCH ×2 (08:57→20:08)
[2022-05-14] MEDS: FUROSEMIDE 40 MG TABLET PO SCH (08:57)
[2022-05-14] MEDS ORDERED: POTASSIUM 25 MEQ EFFERV TAB PO ONE (09:00)
[2022-05-14] MEDS: FERROUS SULFATE 325 MG TAB PO SCH (09:11)
[2022-05-14] MEDS: VANCOMYCIN 1 GM in NA CHLORIDE 0.9% 250 ML IVPB SCH (12:45)
--- NOTE | 2022-05-14 18:57 | PN ---
Date of Progress Note: 05/14/2022 Subjective: Ms. Sun is doing much better. He does not have any cardiac complaint. He has had an incision and drainage of his right groin abscess and that is improved. He is not having any fever. He does not have any cardiac symptoms. Objective: Vital Signs: Stable, afebrile. He is in sinus rhythm. HEENT: Negative. Neck: Supple with no bruit. Chest: Clear. Cardiac: Revealed atrial fibrillation. Abdomen: Benign. Extremities: Revealed no clubbing, cyanosis, or edema. Diagnostic Data: His EKG showed atrial fibrillation, rate of 80, O2 saturation is 90% to 95% on nasa l cannula. Hemoglobin is 8.6. Impression And Plan: 1.Chronic atrial fibrillation, rate controlled on amiodarone. I would resume his Eliquis when he go es home. He was taking 2.5 b.i.d. 2.History of coronary artery disease that is stable. Elevated troponin was secondary to demand isch emia. 3.Anemia. 4.Status post incision and drainage of the groin abscess that is stable. 5.Chronic obstructive pulmonary disease, on inhalers. 6.Dyslipidemia, on Lipitor. 7.Chronic anemia. 8.Neuropathy, on Neurontin. 9.Hypertension and congestive heart failure, on losartan, and Lasix. He is stable from that standpo int. He remains on antibiotics, steroids, metoprolol, iron, Neurontin, Lasix, losartan, inhalers, am iodarone, Lipitor, and Plavix. I will sign off his case. He needs to resume his Eliquis when he goes home. I will see him in the office 2 weeks after his gets d ischarged. DULCE MARIA/MARGAUX Voice ID: [id number] Report ID: [id number]
--- NOTE | 2022-05-14 19:16 | P.PN ---
Subjective Date of Service: 05/14/22 Chief Complaint: Groin Abscess, Diverticulitis Subjective: No new changes No acute events overnight. He reports that he continues to feel weak. Per RN, he has not been eating much over the last few days. Review of Systems 10-point ROS is otherwise unremarkable General: Weakness (generalized) Physical Examination - Vital Signs Temperature: 97.2 F Blood Pressure: 127/69 Pulse: 89 Respirations: 16 Pulse Ox (%): 98 - Physical Exam General: Alert, In no apparent distress, Oriented x3 HEENT: Atraumatic, PERRLA, Mucous membr. moist/pink, EOMI, Sclerae nonicteric Neck: Supple, JVD not distended Respiratory: Clear to auscultation bilaterally, Normal air movement Cardiovascular: No edema, Regular rate/rhythm, Normal S1 S2, No gallops, No rubs, No murmurs Gastrointestinal: Normal bowel sounds, Soft and benign, Non-distended, No tenderness, No rebound, No guarding Musculoskeletal: No clubbing Integumentary: No rashes, Other (left groin surgical site is covered in clean surgical dressing) Neurological: Normal speech, Cranial nerves 3-12 intact, Normal affect Assessment And Plan - Plan # Decreased Nutritional Intake - Suspect Protein Calorie Malnutrition # Generalized Deconditioning in the setting of Myasthenia Gravis - Nutrition and PT consulted - recommendations appreciated - Per Mr. Sun, he would like to be discharged home; however, he may benefit from SNF placement for therapy services - Continue pyridostigmine - Continue vancomycin # Left Inguinal Abscess s/p I&D # Acute Mild Diverticulitis with Lower GI Bleed (resolved) - General Surgery consulted - recommendations appreciated - Infection seems to be well-controlled # Elevated Troponin likely due to Decreased Creatinine Clearance (resolved) # Chronic Kidney Disease Stage III - Denies any chest pain - Trend: 82.7 -> 51.3 # Coronary Artery Disease # Hypertension - Denies any chest pain - Continue home aspirin, atorvastatin metoprolol, losartan, clopidogrel # Chronic Congestive Heart Failure - No evidence of acute CHF exacerbation # Chronic Atrial Fibrillation - Continue amiodarone, metoprolol - Currently not on anticoagulation due to presenting complaint of GI bleed - If hemoglobin remains stable, will need to have risks and benefits discussion regarding anticoagulation Seth Frankel M.D.
[2022-05-15] MEDS: ALBUTEROL 2.5 MG/3 ML NEB SOL NEB SCH ×3 (01:10→14:00)
[2022-05-15 01:55] LABS: Specific Gravity 1.014 (1.005-1.030); Urine Bilirubin NEGATIVE (Negative); Urine Blood Negative (Negative); Urine Clarity Clear (Clear); Urine Color Light-Yellow (Yellow); Urine Glucose NEGATIVE (Negative); Urine Protein NEGATIVE (Negative); Urine Urobilinogen Normal (Normal)
[2022-05-15 03:53] LABS: Potassium 3.7 mmol/L (3.5-5.1)
[2022-05-15] MEDS: METOPROLOL TAR 25 MG TAB PO SCH ×2 (05:09→17:41)
[2022-05-15] MEDS: LACTOSE-REDUCED FOOD 330 ML LIQUID PO SCH ×3 (07:30→16:30)
[2022-05-15] MEDS: JUVEN PACKET PO SCH (07:30)
[2022-05-15] MEDS: ENSURE ENLIVE 237 ML CAN PO SCH (09:00)
[2022-05-15] MEDS ORDERED: POTASSIUM 25 MEQ EFFERV TAB PO ONE (09:00)
[2022-05-15] MEDS: AMIODARONE HCL 200 MG TAB PO SCH (09:43)
[2022-05-15] MEDS: CLOPIDOGREL 75 MG TABLET PO SCH (09:44)
[2022-05-15] MEDS: LOSARTAN POTASSIUM 50 MG TABLET PO SCH (09:44)
[2022-05-15] MEDS: ATORVASTATIN 10 MG TAB PO SCH (09:44)
[2022-05-15] MEDS: FUROSEMIDE 40 MG TABLET PO SCH (09:44)
[2022-05-15] MEDS: SERTRALINE HCL 100 MG TAB PO SCH (09:44)
[2022-05-15] MEDS: FERROUS SULFATE 325 MG TAB PO SCH (09:44)
[2022-05-15] MEDS: GABAPENTIN 400 MG CAP PO SCH (09:44)
[2022-05-15] MEDS: SODIUM HYPOCHLORITE 0.25% 473 ML TOP SCH (09:45)
[2022-05-15] MEDS: PYRIDOSTIGMINE 60 MG TABLET PO SCH ×3 (10:21→17:41)
[2022-05-15] MEDS: VANCOMYCIN 1 GM in NA CHLORIDE 0.9% 250 ML IVPB SCH (10:21)
[2022-05-15 11:08] VITALS: O2SAT 99
--- NOTE | 2022-05-15 13:49 | P.DS ---
Admission Date: 05/09/22 Discharge Date: 05/15/22 Disposition: TRANSFER TO INPATIENT REHAB Discharge Condition: FAIR Reason for Admission: Groin Abscess, Diverticulitis Consultations: 1. General Surgery Procedures: 05/09/2022 - Incision & Drainage with Debridement of Left Inner Thigh Abscess Hospital Course: DIAGNOSES: # Left Inguinal Methicillin-Resistant Staphylococcus Aureus Abscess s/p I&D (05/10/2022) # Acute Mild Diverticulitis with Lower GI Bleed (resolved) # Mild-Moderate Protein Calorie Malnutrition # Generalized Deconditioning in the setting of Myasthenia Gravis # Elevated Troponin likely due to Decreased Creatinine Clearance (resolved) # Chronic Kidney Disease Stage III # Coronary Artery Disease # Hypertension # Chronic Congestive Heart Failure # Chronic Atrial Fibrillation HOSPITAL COURSE: Mr. Jp Sun is a pleasant 81 year old male with a past medical history significant for myasthenia gravis, coronary artery disease, chronic congestive heart failure, and hypertension who was admitted to the [facility] on 05/09/2022 for hematochezia and a left groin abscess. He was admitted to the Medicine service. CT abdomen/pelvis revealed, "mild acute diverticulitis of sigmoid colon suspected. No abscess. After appropriate treatment, colonoscopy may be useful for direct visualization." He was treated with non-surgical management, with gradual improvement of his symptoms. This morning, he was eating a regular diet, without any issues. In regards to his cutaneous abscess, General Surgery was consulted and Dr. Young performed an incision and drainage with debridement on 05/10/2022. He was treated with IV antibiotics with significant improvement. His would culture returned positive for MRSA, and Dr. Young recommended 10 additional days of sulfamethoxazole- trimethoprim, with daily wound care with Dakins + Santyl. Over his hospital course, he continued to improve significantly; however, there was concern for his nutrition and generalized weakness. With the assistance of nutrition and physical therapy, he improved from these standpoints as well. It was recommended that he be discharged to acute rehab prior to being discharged home. With the assistance of case management, he was accepted to [facility]. I have completed a doc-to-doc with Dr. Jackson at [facility] prior to transfer. On 05/15/2022, he was seen on rounds and deemed medically stable for discharge. He was discharged with instructions to schedule follow-up appointments with his PCP (Dr. Coleman) about 3-5 days after being discharged from [facility] as well as with General Surgery (Dr. Young) immediately following discharge. He was given the opportunity to ask questions and reported no further questions. Furthermore, all questions were answered to the best of my ability. A copy of this discharge summary will be sent to the above providers to facilitate continuity of care. Today, I personally spent 40 minutes on his case, of which greater than 50% of the time was spent in patient education, counseling, and coordination of care as described above. - Physical Exam General: Alert, In no apparent distress, Oriented x3 HEENT: Atraumatic, PERRLA, Mucous membr. moist/pink, EOMI, Sclerae nonicteric Neck: Supple, JVD not distended Respiratory: Clear to auscultation bilaterally, Normal air movement Cardiovascular: No edema, Regular rate/rhythm, Normal S1 S2, No gallops, No rubs, No murmurs Gastrointestinal: Normal bowel sounds, Soft and benign, Non-distended, No tenderness, No rebound, No guarding Musculoskeletal: No clubbing Integumentary: No rashes, Other (left groin surgical site is covered in clean surgical dressing) Vital Signs/Physical Exam: Temp Pulse Resp BP Pulse Ox 97.8 F 73 16 148/83 H 96 05/15/22 12:00 05/15/22 12:00 05/15/22 12:00 05/15/22 12:00 05/15/22 12:00 Laboratory Data at Discharge: WBC 8.50 K/uL (4.3-10.9) 05/14/22 06:04 Hgb 8.6 g/dL (13.6-17.9) L 05/14/22 06:04 Hct 26.5 % (39.6-49.0) L 05/14/22 06:04 Plt Count 361 K/uL (152-406) 05/14/22 06:04 PT 23.8 SECONDS (9.5-12.5) H 05/09/22 15:53 INR 2.13 05/09/22 15:53 Sodium 146 mmol/L (136-145) H 05/15/22 03:12 Potassium 3.7 mmol/L (3.5-5.1) D 05/15/22 03:12 BUN 39 mg/dL (7-18) H 05/15/22 03:12 Creatinine 0.99 mg/dL (0.55-1.3) 05/15/22 03:12 Glucose 113 mg/dL (74-106) H 05/15/22 03:12 Phosphorus 2.8 mg/dL (2.5-4.9) 05/10/22 04:57 Magnesium 2.0 mg/dL (1.8-2.4) 05/14/22 06:04 Total Bilirubin 0.2 mg/dL (0.2-1.0) 05/14/22 06:04 AST 20 U/L (15-37) 05/14/22 06:04 ALT 15 U/L (12-78) 05/14/22 06:04 Alkaline Phosphatase 65 U/L (45-117) 05/14/22 06:04 Triglycerides 63 mg/dL (<150) 05/10/22 04:57 Cholesterol 64 mg/dL (<200) 05/10/22 04:57 HDL Cholesterol 28 mg/dL (40-60) L 05/10/22 04:57 Cholesterol/HDL Ratio 2.29 05/10/22 04:57 Amylase 19 U/L (25-115) L 05/09/22 15:53 Lipase 122 U/L (73-393) 05/09/22 15:53 Home Medications: Sertraline HCl 1 tab PO DAILY 10/05/21 pyRIDostigmine bromide [Pyridostigmine Damar] 4 tab PO QID 11/16/21 Clopidogrel Bisulfate [Plavix*] 1 tab PO DAILY 01/28/22 Ferrous Sulfate [Iron] 1 tab PO DAILY 01/28/22 Furosemide 1 tab PO DAILY 01/28/22 Gabapentin [Neurontin*] 1 cap PO BID 01/28/22 Losartan Potassium [Cozaar] 1 tab PO DAILY 01/28/22 Amiodarone HCl [Cordarone*] 1 tab PO DAILY 05/12/22 Apixaban [Eliquis *] 2 tab PO BID 05/12/22 Atorvastatin Calcium [Lipitor*] 1 tab PO DAILY 05/12/22 Metoprolol Tartrate 1 tab PO DAILY 05/12/22 Ensure Clear 237 ml PO BID can 05/15/22 Lactose-Reduced Food [Ensure Max Protein] 273 ml PO AC can 05/15/22 Smz./Tmp. [Bactrim Ds 800 MG/160 MG] 1 tab PO BID 10 Days #20 tab 05/15/22 New Medications: Smz./Tmp. [Bactrim Ds 800 MG/160 MG] 1 tab PO BID 10 Days #20 tab Physician Discharge Instructions: 1. Please schedule a follow-up appointment with General Surgery (Dr. Young) immediately after being discharged from [facility] 2. Please schedule a follow-up appointment with your PCP (Dr. Coleman) 3-5 days after being discharged from [facility] - For wound care: please change and dress the wound daily with Dakins + Santyl Diet: AHA Activity: Fall precautions Followup: Jules Young MD [ACTIVE - CAN ADMIT] - Erickson Coleman MD [Primary Care Provider] - Time spent managing pt's care (in minutes): 40
[2022-05-15 20:39] VITALS: BP 151/87; TEMP 98.8
[2022-05-15] MEDS ORDERED: ENSURE CLEAR 200 ML CAN PO SCH (21:00)
== END 2022-05-15 20:35 | DRG 357 ==
LOC: ER 15:25 → ERHOLD 18:56 → 4TH 22:03
PROVIDERS: ADMIT Hospitalist; ATTEND Internal Medicine
PROC: 0JBM0ZZ Excision of Left Upper Leg Subcutaneous Tissue and Fascia, Open Approach (ICD-10-PCS; principal; 2022-05-10 12:00)
DX: K57.33 Diverticulitis of large intestine without perforation or abscess with bleeding (principal); I48.19 Other persistent atrial fibrillation; K61.0 Anal abscess; L02.214 Cutaneous abscess of groin; I50.22 Chronic systolic (congestive) heart failure; I13.0 Hypertensive heart and chronic kidney disease with heart failure and stage 1 through stage 4 chronic kidney disease, or unspecified chronic kidney disease; I24.8 Other forms of acute ischemic heart disease; E44.0 Moderate protein-calorie malnutrition; N18.31 Chronic kidney disease, stage 3a; D64.9 Anemia, unspecified; E78.5 Hyperlipidemia, unspecified; I34.0 Nonrheumatic mitral (valve) insufficiency; J44.9 Chronic obstructive pulmonary disease, unspecified; G62.9 Polyneuropathy, unspecified; E05.90 Thyrotoxicosis, unspecified without thyrotoxic crisis or storm; E87.6 Hypokalemia; G70.00 Myasthenia gravis without (acute) exacerbation; I25.10 Atherosclerotic heart disease of native coronary artery without angina pectoris; B95.62 Methicillin resistant Staphylococcus aureus infection as the cause of diseases classified elsewhere; Z95.5 Presence of coronary angioplasty implant and graft; Z68.22 Body mass index [BMI] 22.0-22.9, adult; Z79.01 Long term (current) use of anticoagulants; Z86.73 Personal history of transient ischemic attack (TIA), and cerebral infarction without residual deficits; Z79.52 Long term (current) use of systemic steroids; Z79.82 Long term (current) use of aspirin; Z79.02 Long term (current) use of antithrombotics/antiplatelets; Z79.899 Other long term (current) drug therapy; Z20.822 Contact with and (suspected) exposure to COVID-19
CPT/HCPCS: 36415; 71045; 74177; 80048; 80053; 80061; 80076; 80202; 81003; 82150; 82550; 82553; 83605; 83690; 83735; 83880; 84100; 84443; 84484; 85025; 85610; 86850; 86870; 86880; 86900; 86901; 86905; 87070; 87075; 87077; 87186; 87205; 87811; 88304; 93005; 96365; 96375; 97116; 97161; 97530; 99284; C9113; J1170; J1940; J2405; J2543; J2704; J2930; J3010; J3370; J3475; J7030; J7040; J7050; P9047; Q9967